=== PATIENT | male | born 1940 | race Caucasian/White ===

== ENCOUNTER 2021-01-17 15:35 | Inpatient (IN) | payer MEDICARE, SELFPAY ==
[2021-01-17] VITALS (10 sets, daily range): BP systolic 108–185; BP diastolic 69–90; PULSE 66–74; RESP 16–24; TEMP 35.9–36.6; O2SAT 98–100; BMI 30.8
--- NOTE | ~2021-01-17 | XR_ITS ---
EXAMINATION: XR abdomen obstructive series EXAM DATE: 01/26/2021 11:05 INDICATION: Nausea and vomiting. TECHNIQUE: Frontal projection(s) of the abdomen for interpretation. Comparison is made to prior exami nation from 07/09/2017. FINDINGS: There is a left-sided double-J ureteral stent, with a 1.5 cm stone next to it. Stent appea rs to be in expected position. There are a couple of loops of moderately distended air-filled small bowel in the midabdomen, differe ntial diagnosis including ileus and obstruction. No evidence of free intraperitoneal gas. Small bilateral pleural effusions. There is bibasilar airspace disease, which may have progressed com pared to chest x-ray 01/22/2021. IMPRESSION: 1. Couple loops of moderately distended air-filled small bowel, ileus or obstruction. Consider CT ab domen pelvis. 2. Possible progression in bibasilar airspace disease, atelectasis and/or pneumonia. 3. Left nephrolithiasis. Stent in position. 4. Small pleural effusions. Reviewed, dictated and finalized at location B. STMENT SPECIALIST IMPRESSION: 1. Couple loops of moderately distended air-filled small bowel, ileus or obstr uction. Consider CT abdomen pelvis. 2. Possible progression in bibasilar airspace disease, atelectasis and/or pneu monia. 3. Left nephrolithiasis. Stent in position. 4. Small pleural effusions.
--- NOTE | ~2021-01-17 | CT_ITS ---
EXAMINATION:CT diagnostic chest wo con DATE: 01/23/2021 14:30 INDICATION: Lung nodule. TECHNIQUE: Computed tomography (CT) of the chest was performed without intravenous contrast. Automate d exposure control and iterative reconstruction technique were employed. The dose-length product (DLP ) was 327.06 mGy-cm. COMPARISON: Chest single view 01/22/2021, CT abdomen and pelvis 07/08/2017 FINDINGS: There are small bilateral loculated pleural effusions. There is smooth septal thickening in the inferior lungs. There are scattered mild groundglass opacities in the lungs, worst in right uppe r lobe. There are two 3 mm nodules in right middle lobe, likely benign. Cardiomegaly is noted. There are coronary artery calcifications. There are changes of coronary artery bypass grafting. There are c hanges of aortic valve replacement. Bilateral gynecomastia is noted. There is mild chronic anterior w edging of multiple vertebral bodies. There is moderate thoracic spondylosis. There are bridging endpl ate osteophytes at multiple levels in the spine, consistent with diffuse idiopathic skeletal hyperost osis (DISH). IMPRESSION: 1. Small bilateral loculated pleural effusions. The chest radiograph abnormality correlates with flui d in the left major fissure. 2. Diffuse lung disease, likely mild pulmonary edema. Reviewed, dictated and finalized at location A. RN IMPRESSION: 1. Small bilateral loculated pleural effusions. The chest radiograph abnormalit y correlates with fluid in the left major fissure. 2. Diffuse lung disease, likely mild pulmonary edema.
--- NOTE | ~2021-01-17 | XR_ITS ---
EXAMINATION: XR chest 2V EXAM DATE: 01/17/2021 16:38 INDICATION: All over chest pain started this morning. History of bypass surgery. TECHNIQUE: Frontal and lateral projections of the chest obtained and reviewed. Comparison is made to prior examination from 09/08/2010. FINDINGS: Sternotomy wires are present without findings to suggest sternal dehiscence. Cardiac valve replacement. There is cardiomegaly and pulmonary vascular congestion. Possible mild pulmonary edema. No confluent consolidation or pneumothorax. Small pleural effusions. Mild to moderate thoracic spond ylosis. IMPRESSION: Congestive changes, possible mild CHF. Small pleural effusions. Reviewed, dictated and finalized at location A. ANALYST
--- NOTE | ~2021-01-17 | XR_ITS ---
EXAMINATION: XR abdomen obstructive series DATE: 01/27/2021 05:47 INDICATION: Small bowel obstruction TECHNIQUE: Frontal supine and upright views of the abdomen were obtained. COMPARISON: 01/26/2021 FINDINGS: Persistent mildly dilated loops of small bowel consistent with small bowel obstruction. No free intra peritoneal gas. Large left renal stone and loop of a left internal ureteral stent project over the le ft renal pelvis. The distal loop of the stent is formed over the expected location of the bladder. Ph leboliths and a couple surgical clips project over the pelvis. Mild streaky atelectasis at the left l adam base. Cardiomegaly. Median sternotomy wires, ostial markers and mediastinal surgical clips consis tent with prior coronary artery bypass grafting. Aortic valve replacement. Severe lower lumbar spondy losis. IMPRESSION: 1. Persistent mildly dilated loops of gas-filled small bowel consistent with small bowel obstruction . 2. Left nephrolithiasis with left internal ureteral stent in expected position. Reviewed, dictated and finalized at location A. ANCE CONSULTANT IMPRESSION: 1. Persistent mildly dilated loops of gas-filled small bowel consistent with s mall bowel obstruction. 2. Left nephrolithiasis with left internal ureteral stent in expected position.
--- NOTE | ~2021-01-17 | XR_ITS ---
EXAMINATION: XR abdomen obstructive series EXAM DATE: 02/04/2021 08:22 INDICATION: Small bowel obstruction follow-up. TECHNIQUE: Frontal upright projection of the upper abdomen, frontal projection of the lower abdomen f or interpretation. Comparison is made to prior examination from 02/03/2021, 02/01. FINDINGS: There is a loop of moderately distended air-filled small bowel identified. There is a left double-J ureteral stent in position and approximately 1 cm left nephrolithiasis. Some pelvic surgica l clips. Paucity of colonic stool and gas. There are bony degenerative changes. No evidence of free i ntraperitoneal gas. There are sternotomy wires. There is basilar atelectasis. IMPRESSION: Several loops distended air-filled small bowel without evidence of perforation. Reviewed, dictated and finalized at location A. SOMNOGRAPHIC TECHNOLOGIST
--- NOTE | ~2021-01-17 | XR_ITS ---
EXAMINATION: XR abdomen/kub 1V EXAM DATE: 01/31/2021 12:33 INDICATION: Small bowel obstruction. TECHNIQUE: Frontal projection(s) of the abdomen for interpretation. Comparison is made to prior exami nation from 01/27/2021. FINDINGS: There is a left-sided double-J ureteral stent in position. There are several loops of mode rately distended air-filled small bowel identified in the abdomen, less distended than on previous ex amination. Paucity of colonic stool and gas. Retrocardiac linear atelectasis. Mild to moderate bony d egenerative changes. IMPRESSION: 1. Several loops of moderately distended air-filled small bowel with mild improvement. 2. Left ureteral stent in position. Reviewed, dictated and finalized at location A. TECHNOLOGY ENGINEERING TECHNICIAN IMPRESSION: 1. Several loops of moderately distended air-filled small bowel with mild impr ovement. 2. Left ureteral stent in position.
--- NOTE | ~2021-01-17 | US_ITS ---
EXAMINATION: US renal BI DATE: 01/18/2021 10:53 INDICATION: Acute renal failure TECHNIQUE: Multiple grayscale and Doppler ultrasound images of the kidneys were obtained. COMPARISON: None. FINDINGS: The right kidney measures 9.5 x 5.1 x 4.9 cm. The left kidney measures 12.8 x 6.4 x 7.0 cm. The kidneys demonstrate normal parenchymal echogenicity. There is moderate hydronephrosis of the lef t kidney of unclear etiology. The bladder is normal. IMPRESSION: 1. Moderate left hydronephrosis of unclear etiology. Reviewed, dictated and finalized at location A. NICIAN PLANT AND MAINTENANCE
--- NOTE | ~2021-01-17 | XR_ITS ---
EXAMINATION: XR abdomen obstructive series EXAM DATE: 02/01/2021 14:10 INDICATION: Small bowel obstruction. TECHNIQUE: Frontal upright projection of the upper abdomen, frontal projection of the lower abdomen f or interpretation. Comparison is made to prior examination from 01/31/2021. FINDINGS: No evidence of free intraperitoneal gas. Again there are several loops of moderately diste nded air-filled small bowel with paucity of colonic stool. There is a left-sided double-J ureteral st ent in position. There is large left nephrolithiasis. Sternotomy wires. IMPRESSION: 1. Moderately distended air-filled small bowel unchanged. 2. Left ureteral stent in position. 3. Left nephrolithiasis. Reviewed, dictated and finalized at location A. APPEALS
--- NOTE | ~2021-01-17 | XR_ITS ---
EXAMINATION: XR chest 1V portable INDICATION: Shortness of breath TECHNIQUE: Portable AP chest at 0823 hours COMPARISON: 01/19/2021 FINDINGS: A mild diffuse interstitial pattern persists without significant change. Cardiomegaly is no juan pablo. There are small pleural effusions. No pneumothorax is identified. Changes of cardiac surgery are noted. There is a possible nodule of the left upper lung zone. IMPRESSION: 1. Cardiomegaly with mild pulmonary edema. 2. Bibasilar airspace opacities, consistent with atelectasis versus pneumonia. 3. Possible left lung nodule. Further evaluation with CT of the chest is recommended. Reviewed, dictated and finalized at location A. GRAIN FARMER IMPRESSION: 1. Cardiomegaly with mild pulmonary edema. 2. Bibasilar airspace opacities, consistent with atelectasis versus pneumonia. 3. Possible left lung nodule. Further evaluation with CT of the chest is recomm ended.
--- NOTE | ~2021-01-17 | XR_ITS ---
EXAMINATION: XR abdomen NG/feed tube insert DATE: 01/26/2021 14:14 INDICATION: Nasogastric tube placement TECHNIQUE: A supine view of the abdomen and lower chest was obtained for evaluation of feeding tube placement. COMPARISON: CT dated 01/26/2021 FINDINGS: Nasogastric tube with distal tip in proximal side port in the body of the stomach. Proximal loop of a left internal ureteral stent projects over the left upper quadrant over the expected location of the left renal pelvis. Linear discoid atelectasis/scarring in the left lower lung zone. The subtle patch y groundglass opacities at the bilateral lung bases seen on CT and suspicious for pneumonia indiscern ible on the current radiographs. Cardiomegaly. Median sternotomy wires, ostial markers and mediastina l surgical clips consistent with prior coronary artery bypass grafting. Aortic valve repair. IMPRESSION: 1. Nasogastric tube in the stomach. 2. Cardiomegaly. Reviewed, dictated and finalized at location A. AN/WOMAN
--- NOTE | ~2021-01-17 | CT_ITS ---
EXAMINATION: CT abdomen pelvis wo con DATE: 01/26/2021 12:03 INDICATION: Abdominal pain, nausea and vomiting with abnormal abdominal x-ray. TECHNIQUE: Computed tomography (CT) of the abdomen and pelvis was performed without intravenous contr ast. Automated exposure control and iterative reconstruction technique were employed. The dose-length product was 855.04 mGy-cm. COMPARISON: 07/18/2017 FINDINGS: Tiny bilateral pleural effusions. There are some pleural thickening and scattered linear discoid atel ectasis/scarring at the bilateral lung bases. There are few scattered small regions of groundglass op acity in the lingula, right middle and bilateral lower lobes which could represent aspiration, pneumo mingo or pulmonary edema. Borderline heart size. Atherosclerotic coronary artery calcifications and bryan nge of prior median sternotomy and coronary artery bypass grafting. Small sliding-type hiatal hernia. Liver, gallbladder, spleen, pancreas and bilateral adrenal glands are normal. Moderate right renal at rophy. 12 mm nonobstructing stone in an inferior calyx of the left kidney. There is a left internal u reteral stent with loops formed in the left renal pelvis and in the bladder. No hydronephrosis. There is a small amount of gas in the nondependent aspect of the otherwise normal-appearing bladder.. Postoperative change of prior distal colectomy with Valente's pouch and left supraumbilical and colos nirmal. Again seen is a moderate-sized parastomal hernia which contains a couple loops of small bowel. The hernia orifice measures 5.5 cm in diameter. There is a secondary small bowel obstruction with mil d dilation of the small bowel proximal to a transition point where the herniated bowel exits the xin ia sac with decompression of the more distal small bowel. The dilated bowel measures up to 3.3 cm in maximal diameter. There are few scattered diverticula along the remaining colon without adjacent infl ammatory change to suggest diverticulitis. The appendix is not visualized. No pericecal inflammatory change to suggest acute appendicitis. There is calcified atherosclerosis of the aorta and many of the other arteries. No free intraperitone al gas or fluid. No pathologically enlarged abdominal or pelvic lymphadenopathy. Severe lower lumbar spondylosis. IMPRESSION: 1. Again seen is a likely early or partial small bowel obstruction secondary to parastomal hernia wit h couple loops of small bowel with transition point occurring as one of the loops exits the hernia. 2. 12 mm nonobstructing left renal stone with left internal ureteral stent in expected position. 3. A few small groundglass opacities in the bilateral lower lobes which could represent atelectasis, pneumonia or pulmonary edema. 4. Small sliding-type hiatal hernia. 5. Small amount of gas in the otherwise normal bladder. Correlate clinically for recent instrumentati on or Romero catheterization and with urinalysis. 6. 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 Reviewed, dictated and finalized at location A. R DIGGER OPERATOR IMPRESSION: 1. Again seen is a likely early or partial small bowel obstruction secondary to parastomal hernia with couple loops of small bowel with transition point occur ring as one of the loops exits the hernia. 2. 12 mm nonobstructing left renal stone with left internal ureteral stent in e xpected position. 3. A few small groundglass opacities in the bilateral lower lobes which could r epresent atelectasis, pneumonia or pulmonary edema. 4. Small sliding-type hiatal hernia. 5. Small amount of gas in the otherwise normal bladder. Correlate clinically fo r recent instrumentation or Romero catheterization and with urinalysis. 6. 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
--- NOTE | ~2021-01-17 | XR_ITS ---
EXAMINATION: XR retrograde pyelo w/stent LT EXAM DATE: 01/19/2021 17:21 INDICATION: Cystoscopy, left stent placement. Clot evacuation. TECHNIQUE: Fluoroscopy used during XR retrograde pyelo w/stent LT performed by Dr. Leighton Antonio MD. The DAP for this procedure was 868 radcm2 Cine run(s) available for review. FINDINGS: Images demonstrate cannulation of the left ureter which is tortuous, with mild to moderate left-sided hydroureteronephrosis. A double-J ureteral stent was placed. Correlate with procedure no te. IMPRESSION: Fluoroscopy used during XR retrograde pyelo w/stent LT. Reviewed, dictated and finalized at location A. OR QUALITY ENGINEER
--- NOTE | ~2021-01-17 | XR_ITS ---
EXAMINATION: XR chest 1V portable INDICATION: Congestive changes TECHNIQUE: Portable AP chest at 1141 hours COMPARISON: 01/17/2021 FINDINGS: There is stable cardiomegaly. A mild diffuse interstitial pattern persists without signific ant change. More focal airspace opacities are seen in the lung bases. Small pleural effusions are sta ble. There is no pneumothorax. Changes of prior cardiac surgery are noted. IMPRESSION: 1. Cardiomegaly with stable mild pulmonary edema. 2. Bibasilar airspace opacity, consistent with atelectasis versus pneumonia. 3. Small pleural effusions. Reviewed, dictated and finalized at location A. OLOGY SECRETARY/TRANSCRIPTIONIST
--- NOTE | ~2021-01-17 | XR_ITS ---
EXAMINATION: XR abdomen obstructive series DATE: 02/03/2021 09:20 INDICATION: Small bowel obstruction. TECHNIQUE: Upright and supine views of the abdomen were obtained. COMPARISON: Abdomen radiographs 02/01/2021 FINDINGS: There are mildly dilated loops of small bowel. The colon is decompressed. There is no free peritoneal gas. There is a left internal ureteral stent in expected position. There is a 12 mm stone in left kidney. There are phleboliths in the pelvis. IMPRESSION: 1. Mildly dilated small bowel with interval improvement, consistent with small bowel obstruction. 2. Left kidney stone. Left internal ureteral stent in expected position. Reviewed, dictated and finalized at location A. ACT PULLER
--- NOTE | 2021-01-17 15:36 | ECG_ITS ---
Measurements Intervals [place] Rate: 60 P: 17 AK: 177 QRS: -25 QRSD: 106 T: 62 QT: 407 QTc: 409 Interpretive Statements SINUS RHYTHM DELAYED PRECORDIAL R/S TRANSITION BORDERLINE ST-T WAVE ABNORMALITY- ANTEROLAT/HIGH LAT LEADS BASELINE ARTIFACT- II, III, AVR, AVF, V1 BORDERLINE ECG Electronically Signed On 01-18-2021 9:26:43 BIOMASS TECHNICIAN by Herbert Junior D.O.
[2021-01-17 15:53] LABS: Basophils Percent Auto 0.3 % (0.2-1.2); Eosinophils Absolute Auto 0.2 K/mm3 (0-0.3); Hemoglobin 9.3 g/dL (14.0-18.0); Immature Granulocyte Absolute 0.02 K/mm3 (0.00-0.031); Immature Granulocyte Percent A 0.3 % (0-0.5); Lymphocytes Absolute Auto 1.26 K/mm3 (0.9-3.2); Lymphocytes Percent Auto 21.2 % (18.3-44.2); Mean Corpuscular HGB Conc 33.2 g/dl (32-36); Mean Corpuscular Hemoglobin 32.5 pg (26-34); Mean Corpuscular Volume 97.9 fl (80-100); Mean Platelet Volume 9.4 fl (7.4-10.4); Monocytes Percent Auto 17.2 % (2.6-8.5); Neutrophils Absolute Auto 3.4 K/mm3 (1.3-6.7); Platelet Count Result 197 k/mm3 (150-375); Red Blood Count 2.86 M/mm3 (4.6-6.20); Red Cell Distribution Width 13.8 % (11.5-14.5); White Blood Count 5.9 K/mm3 (4.5-10.0)
[2021-01-17 16:02] LABS: Anion Gap 12 mmol/L (8-16); Blood Urea Nitrogen 65 mg/dL (9-20); Calcium 8.6 mg/dL (8.4-10.2); Carbon Dioxide 20 mmol/L (22-30); Chloride 103 mmol/L (98-107); Estimated Glomerular Filt Rate 6; Glucose 254 mg/dL (75-110); Potassium 4.8 mmol/L (3.4-5.0); Sodium 135 mmol/L (137-145)
[2021-01-17 16:03] LABS: INR 1.1; Prothrombin Time 14.7 Seconds (11.1-14.7)
[2021-01-17 16:04] LABS: Partial Thromboplastin Time 33.2 SECONDS (22.3-36.8)
[2021-01-17 16:14] LABS: Troponin I 0.034 ng/mL (0.000-0.034)
--- NOTE | 2021-01-17 18:44 | ED.CHESTPAIN ---
HPI - Chest Pain General Chief Complaint: Chest Pain Stated Complaint: CP Time Seen by Provider: 01/17/21 18:40 Source: patient Mode of arrival: ambulatory Limitations: no limitations History of Present Illness HPI narrative: 80-year-old male Follows with Dr. Cartagena and at the [facility] Most recently was seen a week or 2 ago when he stated everything shut down meaning that he was having trouble peeing and was very constipated At time he had some labs done at the [facility] which were forwarded to Dr. Cartagena as far as the patient knows were fairly unremarkable Day about 7 AM the patient was cleaning snow off of his cars and experienced shortness of breath and chest tightness That went away and he went out to lunch After lunch he walked out to get his mail and had a similar but worse experience as well including the snow this morning and was not sure that he is any able to walk back to the house from the mailbox No nausea no diaphoresis Unfortunately is not sure of his current meds MD complaint: chest heaviness Related Data Home Medications Medication Instructions Recorded Confirmed Unable to Obtain Home Medications 01/17/21 01/17/21 Allergies Allergy/AdvReac Type Severity Reaction Status Date / Time codeine Allergy Unknown Verified 07/15/17 11:13 doxazosin Allergy Unknown Verified 07/08/17 19:32 egg Allergy Unknown Verified 07/15/17 11:13 erythromycin base Allergy Unknown Verified 07/15/17 11:13 Influenza Virus Vaccines Allergy Unknown Verified 07/15/17 11:14 lisinopril Allergy Unknown Verified 07/19/17 09:16 metformin Allergy Unknown Verified 07/19/17 09:16 Penicillins Allergy Unknown Verified 07/15/17 11:14 Review of Systems Review of Systems: All systems reviewed & are unremarkable except as noted in HPI and below Constitutional: Constitutional: Reports fatigue and Reports weakness Eyes: Eyes: Reports no additional eye complaints and Denies change in vision ENT: Denies headache(s), Denies epistaxis, Denies nasal congestion and Denies sore throat Cardiovascular: Cardiovascular: Reports chest pain, Denies leg edema, Denies radiating jaw, neck or arm pain, Denies palpitations and Denies dyspnea Respiratory: Respiratory: Denies cough, Reports dyspnea and Denies wheezing Gastrointestinal: Gastrointestinal: Reports abdominal pain, Denies diarrhea, Denies nausea and Denies vomiting Genitourinary: Genitourinary: Denies hematuria, Reports oliguria, Denies dysuria and Denies urinary frequency Musculoskeletal: Musculoskeletal: Denies deformity, Denies arthralgias, Denies joint swelling, Denies muscle weakness and Denies numbness Integumentary/Breasts: Skin/Breast: Denies rash and Denies wounds Neurologic: Denies headache(s), Denies focal weakness, Denies numbness and Reports weakness Psychiatric: Psychiatric: Reports no additional psychiatric complaints Endocrine: Endocrine: Denies fatigue and Denies palpitations Hematologic/Lymphatic: Hematologic/Lymphatic: Denies easy bleeding and Denies easy bruising Allergic/Immunologic: Allergic/Immunologic: Denies wheezing PMFSH Social History Social History Smoking status: Former smoker Smoking end date: 12/02/96 Alcohol intake: never Gender identity (if verbalized by the patient): Male Exam Const: General: no acute distress, well developed, alert and awake Nutritional Appearance: well nourished Orientation/consciousness: patient oriented x3 (alert) Limitations: no limitations HENMT: Head: normocephalic and atraumatic Ears: external ears normal General nose exam: No nasal discharge present and no epistaxis Face and sinus: face symmetric Eyes: Conjunctivae: conjunctivae normal Sclera: sclerae normal EOM: EOMs intact bilaterally Neck: Neck: normal visual inspection, supple and no JVD Chest: Chest palpation & inspection: deferred Resp: Effort & Inspection: normal respiratory effort Auscultation: clear to auscultation bilaterally, no ra
--- NOTE | 2021-01-17 19:10 | PC.NURSE ---
Report to MAVIS Garcia at this time, he has assumed pt care.
--- NOTE | 2021-01-17 19:12 | PC.NURSE ---
Report to MAVIS Garcia at this time, he has assumed pt care.
[2021-01-17 19:17] LABS: Troponin I 0.209 ng/mL (0.000-0.034)
[2021-01-17] MEDS: ASPIRIN 81 MG CHEWABLE TABLET 324 MG PO (19:44)
[2021-01-17] MEDS: METOPROLOL TARTRATE INJ 5 MG/5 ML VIAL IV PUSH (19:47)
[2021-01-17 20:02] LABS: Creatinine Urine 84.2 mg/dL
[2021-01-17 20:03] LABS: Sodium Urine Random 77 meq/L
[2021-01-17] MEDS: HEPARIN SOD/D5W 100 UNITS/ML 25,000 UNITS/250 ML BAG 10 UNITS IV CONT (20:03)
[2021-01-17 20:08] LABS: Anion Gap 11 mmol/L (8-16); Blood Urea Nitrogen 68 mg/dL (9-20); Calcium 8.7 mg/dL (8.4-10.2); Carbon Dioxide 22 mmol/L (22-30); Chloride 103 mmol/L (98-107); Estimated CRCL calculation 7 ml/min; Estimated Glomerular Filt Rate 6; Glucose 123 mg/dL (75-110); Potassium 4.9 mmol/L (3.4-5.0); Sodium 136 mmol/L (137-145)
--- NOTE | 2021-01-17 20:56 | PM.IMHP ---
H&P: HPI History of Present Illness Date/Time: 01/17/21 20:56 Chief Complaint: chest pain Narrative: This is an 80 year old Diabetic male with known CAD s/p CABG, s/p aortic valve replacement w/ a bovine valve, s/p bowel resection from colon cancer among other comorbidities who presented to the hospital [facility] after having two episodes of chest pain today at home. This morning the patient went outside to clean off the snow off his cars when he started to develop severe midsternal chest pain, diaphoresis, and nausea. His chest discomfort lasted over an hour and he did go and see his PCP, Dr. Cartagena who evaluated him and then sent him home. In the afternoon he went out to get the mail when he started to again experience severe midsternal chest pain, nausea, shortness of breath, and diaphoresis. His chest pain was pressure like and radiated down both arms. The patient continues to have mild chest pain in the ER tonight. His last stress test was over a year ago and he hasn't had a cardiac angiogram for over 10 years. Tonight he denies any fevers, chills, cough, abdominal pain, dysuria, hematuria, rectal bleeding or worsening LE swelling. He has been urinating without difficulty. The patient was evaluated in the ER tonight and found to have severely elevated Cr of 8.9 and an elevated troponin of 0.209. Cardiology has been consulted by ER provider and we have been asked to admit him to the hospital for further care. He has no other complaints at this time. Review of Systems Review of Systems: All systems reviewed & are unremarkable except as noted in HPI and below [facility] Past Medical History Medical History (Updated 01/17/21 @ 21:12 by Marty Yañez MD) CAD (coronary artery disease) Diabetes mellitus H/O: HTN (hypertension) History of colon cancer Hyperlipidemia Surgical History Surgical History (Updated 01/17/21 @ 21:06 by Marty Yañez MD) History of aortic valve replacement History of colon resection History of coronary artery bypass graft Family History Family History (Updated 01/17/21 @ 23:19 by Eleni Damon RN) Father Heart disease Mother Heart disease Asthma Sibling Heart disease Social History Social History Smoking packs per day: 2 Smoking cigarettes per day: 40.0 Years smoked: 47 Smoking pack-years: 94.00 Smoking status: Former smoker Tobacco type: cigarettes Second hand tobacco smoke exposure: Yes Smoking end date: 12/02/96 Alcohol intake: never Substance use: never Gender identity (if verbalized by the patient): Male 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 (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) Meds Home Medications and Allergies Home Medications Medication Instructions Recorded Confirmed Type aspirin [Adult Aspirin EC Low 325 mg PO DAILY 01/17/21 01/17/21 History Strength] atorvastatin 40 mg PO HS 01/17/21 01/17/21 History cholecalciferol (vitamin D3) 50 mcg PO DAILY 01/17/21 01/17/21 History furosemide 40 mg PO DAILY 01/17/21 01/17/21 History levothyroxine [Synthroid] 50 mcg PO DAILY 01/17/21 01/17/21 History losartan 25 mg PO DAILY 01/17/21 01/17/21 History metoprolol tartrate 25 mg PO BID 01/17/21 01/17/21 History omega 8-jbs-eoe-fish oil [Fish Oil] 1,200 cap PO DAILY 01/17/21 01/17/21 History potassium chloride 20 meq PO DAILY 01/17/21 01/17/21 History tamsulosin [Flomax] 0.4 mg PO DAILY 01/17/21 01/17/21 History vitamin B complex [Super B Complex] 1 cap PO DAILY 01/17/21 01/17/21 History Allergies Allergy/AdvReac Type Severity Reaction Status Date / Time codeine Allergy Unknown Verified 07/15/17 11:13 doxazosin Allergy Unknown Verified 07/08/17 19:32 egg Allergy Unknown Verified 07/15/17 11:13 erythromycin base Allergy Unknown Verified 07/15/17 11:13 Influenza Virus Vaccines Allergy Unknown Verified 07/15/17 11:14 lisinopril Allergy Unknown Verified 07/19/17 09:16 metformin Allergy Unknown Verified 07/19/17 09:1
--- NOTE | 2021-01-17 21:16 | ECG_ITS ---
Measurements Intervals [place] Rate: 82 P: 9 MO: 167 QRS: -46 QRSD: 133 T: 103 QT: 378 QTc: 444 Interpretive Statements SINUS RHYTHM LEFT BUNDLE BRANCH BLOCK ABNORMAL ECG Electronically Signed On 01-18-2021 9:35:26 SIDING COREBOARD INSPECTOR by Herbert Junior D.O.
[2021-01-17 21:54] LABS: Add Urine Microscopic? YES; Appearance Urine Clear (Clear); Bilirubin Urine Negative (Negative); Blood Urine Negative (Negative); Color Urine Yellow (Yellow); Glucose Urine UA 1+ mg/dL (Negative); Ketones Urine Negative (Negative); Leukocyte Esterase Ur Trace LEU/UL (Negative); Mucus Urine Rare /lpf; Nitrate Urine Negative (Negative); Protein Urine Negative (Negative); RBC Urine 0-2 /hpf (0-2); Specific Grav Ur 1.011 (1.001-1.035); Squamous Epithelial Cell Urine Rare /hpf (Few); Urobilinogen Urine Negative mg/dL (<2.0)
--- NOTE | 2021-01-17 22:11 | PC.NURSE ---
SBAR received from Jose in ED.
[2021-01-17 22:15] LABS: Troponin I 0.313 ng/mL (0.000-0.034)
--- NOTE | 2021-01-17 22:31 | ADMGEN ---
This patient, Mauricio Garces, was admitted to IMU Room 205-02 on 01/17/21 at 2225. Patient/family oriented to hospital policies and general routines including ID bracelet, bed and alarms, visiting hours, pain management, procedures, bathroom and other care routines, personal items, smoking policy, room service/diet, and visiting hours. Information on how to activate the Rapid Response Team has been discussed. Patient/Family are encouraged to report perceived risks to care and to ask questions if they do not understand what they are told or what they should do.
[2021-01-17] MEDS: FAMOTIDINE 20 MG/2 ML VIAL IV PUSH (23:46)
[2021-01-17 23:57] LABS: Glucose Point of Care 97 (65-105)
[2021-01-18] VITALS (14 sets, daily range): BP systolic 111–163; BP diastolic 41–59; PULSE 54–71; RESP 18–20; TEMP 35.9–36.5; O2SAT 95–100
--- NOTE | 2021-01-18 | ECHO_ITS ---
Patient Info Name: Mauricio Garces Age: 80 years : 1940 Gender: Male Ht: 70 in Wt: 212 lbs BSA: 2.20 m2 HR: 55 bpm BP: 163 / 46 mmHg Heart Rhythm: Bradycardia Technical Quality: Fair Exam Date: 01/18/2021 11:37 AM Exam Location: [facility] Patient Status: Inpatient Admit Date: 01/17/2021 Staff Ordering Physician: Yogesh Villegas MD Sports Journalist: Cody Romero RDCS Attending Provider: Wallace Mccoy MD Referring Physician: Bakari MENJIVAR; Exam Type: CA echo dop color flow w con Study Info Indications I21.4 - Non-ST elevation (NSTEMI) myocardial infarction Complete two-dimensional, color flow and Doppler transthoracic echocardiogram is performed with contrast to opacify the left ventricle and to improve the deliniation of the left ventricle endocardial borders. Contrast/Agitated Saline Contrast/Ag. Saline: Definity Amount: 3.00 ml Administered By: Nidhi Skaggs RN Existing IV Access: Yes History/Risk Factors NSTEMI; BioAVR and CAD w/ CABG x2, DM, HTN. Summary 1. Left ventricular chamber dimension is mildly enlarged. 2. Left ventricular systolic function is normal, estimated at 55-60%. 3. There is mildly increased left ventricular wall thickness. 4. The left ventricular diastolic function is grade I diastolic dysfunction. 5. The apical septum, and apical cap are hypokinetic. 6. Left atrial chamber dimension is mildly enlarged. 7. 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 8. There is mild to moderate mitral valve regurgitation. 9. There is mild tricuspid valve regurgitation. 10. Mild pulmonary hypertension, estimated pulmonary arterial systolic pressure is 36 mmHg. 11. There is mild pulmonic regurgitation. 12. The aortic root size at the sinus of Valsalva is mildly dilated. Left Ventricle Left ventricular chamber dimension is mildly enlarged. Left ventricular systolic function is normal, estimated at 55-60%. There is mildly increased left ventricular wall thickness. The left ventricular diastolic function is grade I diastolic dysfunction. The apical septum, and apical cap are hypokinetic. All other hayden appear normal. Right Ventricle Right ventricular chamber dimension is normal. Right ventricular systolic function is normal. Left Atria Left atrial chamber dimension is mildly enlarged. Right Atria Right atrial chamber dimension is normal. Atrial Septum Intact interatrial septum visualized by color flow imaging. 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 There is trace regurgitation of the bioprosthetic aortic valve. Pulmonic Valve The pulmonic valve is normal. There is no pulmonic valve stenosis. There is mild pulmonic regurgitation. Mitral Valve The mitral valve has thickened leaflets. There is no mitral valve stenosis. There is mild to moderate mitral valve regurgitation. Tricuspid Valve The tricuspid valve leaflets are normal. There is no significant tricuspid valve stenosis. There is mild tricuspid valve regurgitation. Mild pulmonary hypertension, estimated pulmonary arterial systolic pressure is 36 mmHg. Pericardium/Pleural The pericardium appears normal. There is no pericardial effusion. Inferior Vena Cava
[2021-01-18] MEDS: SODIUM CHLORIDE 0.9% IV 1,000 ML 80 ML IV CONT ×2 (02:11→13:55)
[2021-01-18 05:13] LABS: Basophils Percent Auto 0.3 % (0.2-1.2); Eosinophils Absolute Auto 0.2 K/mm3 (0-0.3); Eosinophils Percent Auto 3.7 % (0-4.4); Hematocrit 24.2 % (42.0-52.0); Immature Granulocyte Absolute 0.01 K/mm3 (0.00-0.031); Immature Granulocyte Percent A 0.2 % (0-0.5); Lymphocytes Absolute Auto 1.93 K/mm3 (0.9-3.2); Lymphocytes Percent Auto 31.2 % (18.3-44.2); Mean Corpuscular HGB Conc 33.1 g/dl (32-36); Mean Corpuscular Hemoglobin 31.9 pg (26-34); Mean Corpuscular Volume 96.4 fl (80-100); Mean Platelet Volume 9.6 fl (7.4-10.4); Monocytes Absolute Auto 1.1 K/mm3 (0.1-0.6); Monocytes Percent Auto 18.1 % (2.6-8.5); Neutrophils Absolute Auto 2.9 K/mm3 (1.3-6.7); Neutrophils Percent Auto 46.5 % (45.5-73.1); Platelet Count Result 206 k/mm3 (150-375); Red Blood Count 2.51 M/mm3 (4.6-6.20); Red Cell Distribution Width 13.6 % (11.5-14.5); White Blood Count 6.2 K/mm3 (4.5-10.0)
[2021-01-18 05:27] LABS: Anion Gap 10 mmol/L (8-16); Blood Urea Nitrogen 66 mg/dL (9-20); Calcium 8.3 mg/dL (8.4-10.2); Carbon Dioxide 22 mmol/L (22-30); Chloride 104 mmol/L (98-107); Cholesterol 108 mg/dL (0-200); Estimated CRCL calculation 7 ml/min; Estimated Glomerular Filt Rate 6; Glucose 64 mg/dL (75-110); HDL Direct 28 mg/dL; Potassium 4.3 mmol/L (3.4-5.0); Sodium 136 mmol/L (137-145); Triglycerides 84 mg/dL (<150)
[2021-01-18 05:38] LABS: LDL Cholesterol Direct 52 mg/dL
[2021-01-18 06:23] LABS: Glucose Point of Care 87 (65-105)
[2021-01-18] MEDS: TAMSULOSIN HCL 0.4 MG CAPSULE PO (09:10)
[2021-01-18] MEDS: VITAMIN B COMPLEX CAPSULE 1 CAP PO (09:10)
[2021-01-18] MEDS: CHOLECALCIFEROL 1,000 UNITS TABLET 2000 UNITS PO (09:10)
[2021-01-18] MEDS: ASPIRIN 325 MG ENTERIC TABLET PO (09:10)
[2021-01-18] MEDS: OMEGA 3 POLYUNSAT FATTY ACIDS 1 GM CAP PO (09:10)
[2021-01-18] MEDS: LEVOTHYROXINE SODIUM 50 MCG TABLET PO (09:10)
[2021-01-18] MEDS: METOPROLOL TARTRATE 25 MG TABLET PO ×2 (09:10→19:33)
[2021-01-18] MEDS: FAMOTIDINE 20 MG/2 ML VIAL IV PUSH ×2 (09:11→21:21)
--- NOTE | 2021-01-18 09:44 | PM.CNCAR ---
Assessment and Plan Assessment and plan (1) Non-ST elevation [place] (NSTEMI): Code(s): I21.4 - Non-ST elevation (NSTEMI) myocardial infarction Status: Acute Assessment and Plan: Patient has a clinical scenario consistent with acute coronary syndrome. He does have a history of coronary disease and coronary bypass grafting on 2 separate occasions. Details are as above. He still has some residual pain but at this point given his severe renal insufficiency, he will be treated medically for now. If/when his renal function improves, consider cardiac catheterization. Could also risk stratify with a Lexiscan when more medically stable. Will request records from the [place] including most recent echocardiogram as well as stress test that he states was performed last year. Will repeat her troponin now. Initiate nitroglycerin 1 in Q 6 hours. Atorvastatin 40 mg p.o. daily. Continue heparin drip per protocol and this be continued for least another 24 hours. 2D echocardiogram Doppler will be ordered and reviewed. Hold losartan, furosemide and potassium because of his acute renal failure. (2) Acute kidney failure: Qualifiers: Acute renal failure type: unspecified Qualified Code(s): N17.9 - Acute kidney failure, unspecified Code(s): N17.9 - Acute kidney failure, unspecified Status: Acute Assessment and Plan: As above. Continue to hold losartan furosemide and potassium. Nephrology following (3) CAD (coronary artery disease): Code(s): I25.10 - Atherosclerotic heart disease of [place] coronary artery without angina pectoris Status: Acute Assessment and Plan: As detailed above (4) Hyperlipidemia: Qualifiers: Hyperlipidemia type: unspecified Qualified Code(s): E78.5 - Hyperlipidemia, unspecified Code(s): E78.5 - Hyperlipidemia, unspecified Status: Chronic Assessment and Plan: Continue statin (5) Hypertension associated with diabetes: Code(s): E11.59 - Type 2 diabetes mellitus with other circulatory complications; I15.2 - Hypertension secondary to endocrine disorders Status: Acute Assessment and Plan: Above goal (6) History of aortic valve replacement: Code(s): Z95.2 - Presence of prosthetic heart valve Status: Acute Assessment and Plan: Sounds to be functioning normally but will order an echocardiogram to ensure History of Present Illness History of Present Illness Consult date/time: 01/18/21 09:44 Requesting physician: Radames,Quan A., MD Consult reason: chest pain Reason For Visit: NSTEMI, acute renal failure Narrative: Date of service 01/18/2021: History: Patient is an 80-year-old male who has a history of coronary disease times 2 as well as aortic valve replacement. He formally saw Dr. Wilson but has not seen him in several years. Last cardiac care was performed [place] the [place]. Patient had a previous bypass surgery in the he thinks. He had a catheterization in May of 2010 which showed severe aortic stenosis with occlusion of the LAD and RCA with a patent FIORE to the LAD and vein graft to the RCA. In July of 2010 he had a redo bypass with the SVG to OM and a bioprosthetic pericardial tissue valve in the aortic position. He was outside yesterday sweeping off snow from his pars whenever he started developing chest discomfort. He was able to complete this task and went back inside. He then went and saw Dr. Cartagena. At that point he was feeling okay and he decided to proceed and run some errands. After getting back home though and later on the afternoon yesterday he walked out to the mailbox and stated that he felt like he could not even make it back inside. He did manage to make it inside though but was having significant chest pains, dry heaves and shortness of breath. Symptoms radiated down both arms and to the right shoulder. He does still have a mild amount discomfort. Overall symptoms are much bett
[2021-01-18 10:22] LABS: Partial Thromboplastin Time 63.1 SECONDS (22.3-36.8)
[2021-01-18] MEDS: HEPARIN SODIUM 5,000 UNITS/ML VIAL 3500 UNITS IV PUSH (11:07)
[2021-01-18 11:08] LABS: Troponin I 0.274 ng/mL (0.000-0.034)
[2021-01-18 11:58] LABS: Glucose Point of Care 83 (65-105)
[2021-01-18] MEDS: PERFLUTREN LIPID MICROSPHERES 1.5 ML VIAL DILUTED TO 10 ML TOTAL VOLUME IV PUSH (12:00)
[2021-01-18] MEDS: NITROGLYCERIN OINTMENT 1 INCH DOSE TRANSDERM ×3 (12:33→23:33)
--- NOTE | 2021-01-18 14:42 | PM.CNNEP ---
Assessment and Plan Assessment and plan (1) Acute kidney failure: Qualifiers: Acute renal failure type: unspecified Qualified Code(s): N17.9 - Acute kidney failure, unspecified Code(s): N17.9 - Acute kidney failure, unspecified Status: Acute Assessment and Plan: Mauricio has acute kidney injury. He had a normal creatinine in 2017. He says that he has not been told about abnormal kidneys before this. He has had issues with his urine output since . Although he has not really been evaluated for this so we have no idea what his kidney function has been over the last month and a half. Currently is creatinine is 9 which is quite high. Judging from all of his symptoms and sound like he has some prostatic symptoms and so could have obstruction. He did have a renal ultrasound which shows a large left kidney and a small right kidney. The left kidney has moderate hydronephrosis. Since this is the bigger kidney and therefore most of the kidney function, the hydronephrosis may be what is leading to his high creatinine. So I asked the nurses to place a Romero catheter. If they have any trouble then they will call Urology to place 1. his obstruction could simply be BPH but also could be prostate cancer. He tsai had colon cancer already. Other causes of acute kidney injury include interstitial nephritis because he is on a few new medications but he does not really know what they are. Glomerulonephritis is always a possibility as well , however he does not have blood or protein in the urine. Infiltrative diseases such as multiple myeloma or amyloidosis are possible as well. And vascular diseases are possible as well. at this point will get urine electrolytes and eosinophils. We will place a Romero catheter in see if that does anything. (2) CAD (coronary artery disease): Code(s): I25.10 - Atherosclerotic heart disease of [place] coronary artery without angina pectoris Status: Acute Assessment and Plan: The patient has coronary disease. He undoubtedly needs a cardiac catheterization. However his creatinine is 9 right now. If he continues to have chest pain and shortness of breath even on maximal medical therapy as he is on, then he will probably just have to have the cardiac catheterization but if things settle down and we can wait a few days safely then that would lessen the likelihood of nephrotoxicity. I talked with the patient about the above. We can always do dialysis if the kidneys fail, but we do not want him to have another heart attack. (3) H/O: HTN (hypertension): Code(s): Z86.79 - Personal history of other diseases of the circulatory system Status: Chronic Assessment and Plan: His blood pressure is under good control (4) Normocytic anemia: Code(s): D64.9 - Anemia, unspecified Status: Acute Assessment and Plan: his hemoglobin is low. Will check iron levels. He probably will need EPO. (5) Diabetes mellitus: Qualifiers: Diabetes mellitus type: type 2 Diabetes mellitus it analyst insulin use: with mcc use Diabetes mellitus complication status: without complication Qualified Code(s): E11.9 - Type 2 diabetes mellitus without complications; Z79.4 - appraiser timber (current) use of insulin Code(s): E11.9 - Type 2 diabetes mellitus without complications Status: Chronic Assessment and Plan: He is on Accu-Cheks and sliding-scale insulin (6) History of aortic valve replacement: Code(s): Z95.2 - Presence of prosthetic heart valve Status: Acute History of Present Illness Reason for Consult Consult date: 01/18/21 Chief Complaint Chief complaint: NSTEMI, acute renal failure History of Present Illness Narrative: Mauricio is a very pleasant 80-year-old gentleman who has multiple medical problems including colon cancer status post colectomy and colostomy placement, coronary disease status post bypass,
[2021-01-18 17:05] LABS: Glucose Point of Care 176 (65-105)
--- NOTE | 2021-01-18 17:26 | PM.IMPN ---
Progress Note: A&P Assessment and Plan (1) Non-ST elevation [place] (NSTEMI): Code(s): I21.4 - Non-ST elevation (NSTEMI) myocardial infarction Status: Acute Assessment and Plan: Patient presents with complaints of chest pain shortness of breath with exertion. Troponin peaked at 0.31. EKG showing delayed transition and borderline ST T wave changes in the anterior lateral and high lateral leads. Repeat EKG later on the same day showing new left bundle branch block. No plans for cardiac catheterization given his renal insufficiency. Echocardiogram showing EF of 55-60% with grade 1 diastolic dysfunction and hypokinetic apical septum and apical cap. Plan for medical management. Drip for now. Continue aspirin, Lipitor, Lopressor. Nitroglycerin ointment added as well. Appreciate Cardiology input. (2) CAD (coronary artery disease): Code(s): I25.10 - Atherosclerotic heart disease of [place] coronary artery without angina pectoris Status: Acute Assessment and Plan: As above. Plan for continued medical management. (3) Acute kidney failure: Qualifiers: Acute renal failure type: unspecified Qualified Code(s): N17.9 - Acute kidney failure, unspecified Code(s): N17.9 - Acute kidney failure, unspecified Status: Acute Assessment and Plan: Creatinine 9.2 on admission. Patient states that he does not have underlying kidney disease. Last lab work here in July 2017 showing creatinine 1.1. Suspect his renal failure is either subacute or chronic given that he has tolerated this change well. He was on Lasix on admission. IV fluids started on admission. Patient's creatinine slightly better today. Renal ultrasound showing normal parenchymal echogenicity and moderate left hydronephrosis. Bladder appears normal. UA is negative for protein and blood. Patient is on Flomax. Romero catheter placed. FENa 6.2% to suggest renal (infiltrative?) or possibly post-renal. Monitor urine output and renal function. Appreciate Nephrology input. Consider urology consult. (4) Elevated troponin: Code(s): R77.8 - Other specified abnormalities of plasma proteins Status: Acute Assessment and Plan: Likely secondary to unstable angina/NSTEMI. As above. (5) Normocytic anemia: Code(s): D64.9 - Anemia, unspecified Status: Acute Assessment and Plan: Hgb 9.3 on admission. Patient denies any dark black stools or active colon bleeding. With IV fluids, Hgb dropped to 8. Continue to monitor H&H and transfuse p.r.n. as the patient is being anticoagulated with IV heparin. Check iron studies, etc. (6) Hyperlipidemia: Qualifiers: Hyperlipidemia type: unspecified Qualified Code(s): E78.5 - Hyperlipidemia, unspecified Code(s): E78.5 - Hyperlipidemia, unspecified Status: Chronic Assessment and Plan: LDL 52, HDL 28. Continue Lipitor. Check LFTs. (7) H/O: HTN (hypertension): Code(s): Z86.79 - Personal history of other diseases of the circulatory system Status: Chronic Assessment and Plan: Patient's blood pressure was reviewed on 01/18 Blood pressure elevated at times but overall remains well controlled. Will continue current medications. (8) Diabetes mellitus: Qualifiers: Diabetes mellitus complication status: without complication Diabetes mellitus terminal manager insulin use: with longterm use Diabetes mellitus type: type 2 Qualified Code(s): E11.9 - Type 2 diabetes mellitus without complications; Z79.4 - terminal gauger (current) use of insulin Code(s): E11.9 - Type 2 diabetes mellitus without complications Status: Chronic Assessment and Plan: The patient's blood glucose was reviewed on 01/18 Glucose remains well controlled. Continue AccuCheks covering with sliding scale. Hypoglycemia protocol available as needed. Continue to monitor closely. (9) History of aortic
[2021-01-18 17:43] LABS: Partial Thromboplastin Time 140.4 SECONDS (22.3-36.8)
[2021-01-18] MEDS: HEPARIN SOD/D5W 100 UNITS/ML 25,000 UNITS/250 ML BAG 10 UNITS IV CONT (19:35)
[2021-01-18 20:28] LABS: Glucose Point of Care 235 (65-105)
[2021-01-18] MEDS: ATORVASTATIN 40 MG TABLET PO (21:21)
[2021-01-18] MEDS: INSULIN ASPART (*BKC) 100 UNITS/ML SUB-Q (21:22)
[2021-01-18] MEDS: ACETAMINOPHEN 325 MG TABLET 650 MG PO (23:33)
[2021-01-19] VITALS (30 sets, daily range): BP systolic 118–160; BP diastolic 48–78; PULSE 54–93; RESP 14–27; TEMP 36.2–37.1; O2SAT 92–100
[2021-01-19] MEDS: LEVALBUTEROL NEB 1.25 MG/3 ML 0.63 MG INHALATION ×4 (00:55→20:23)
[2021-01-19 02:23] LABS: Basophils Percent Auto 0.3 % (0.2-1.2); Eosinophils Absolute Auto 0.1 K/mm3 (0-0.3); Eosinophils Percent Auto 0.9 % (0-4.4); Hematocrit 25.8 % (42.0-52.0); Hemoglobin 8.6 g/dL (14.0-18.0); Immature Granulocyte Absolute 0.04 K/mm3 (0.00-0.031); Immature Granulocyte Percent A 0.5 % (0-0.5); Lymphocytes Absolute Auto 1.27 K/mm3 (0.9-3.2); Lymphocytes Percent Auto 14.4 % (18.3-44.2); Mean Corpuscular HGB Conc 33.3 g/dl (32-36); Mean Corpuscular Hemoglobin 32.3 pg (26-34); Mean Platelet Volume 9.3 fl (7.4-10.4); Monocytes Absolute Auto 1.1 K/mm3 (0.1-0.6); Monocytes Percent Auto 12.7 % (2.6-8.5); Neutrophils Absolute Auto 6.3 K/mm3 (1.3-6.7); Neutrophils Percent Auto 71.2 % (45.5-73.1); Platelet Count Result 196 k/mm3 (150-375); Red Blood Count 2.66 M/mm3 (4.6-6.20); Red Cell Distribution Width 13.6 % (11.5-14.5); White Blood Count 8.8 K/mm3 (4.5-10.0)
[2021-01-19 02:29] LABS: Hemoglobin A1C 6.2 % (<5.7)
[2021-01-19 02:32] LABS: Partial Thromboplastin Time 86.7 SECONDS (22.3-36.8)
[2021-01-19 02:37] LABS: Alanine Aminotransferase 11 U/L (4-50); Albumin Level 3.2 g/dL (3.5-5.1); Alkaline Phosphatase 68 U/L (38-126); Anion Gap 10 mmol/L (8-16); Aspartate Amino Transferase 19 U/L (17-59); Bilirubin,Total 0.5 mg/dL (0.2-1.3); Blood Urea Nitrogen 59 mg/dL (9-20); CRP 6.5 mg/dL (<1.0); Calcium 8.4 mg/dL (8.4-10.2); Carbon Dioxide 18 mmol/L (22-30); Chloride 104 mmol/L (98-107); Creatine Kinase 67 U/L (55-170); Estimated CRCL calculation 7 ml/min; Estimated Glomerular Filt Rate 6; Glucose 172 mg/dL (75-110); Magnesium 1.7 mg/dL (1.6-2.3); Phosphorus 5.4 mg/dL (2.5-4.5); Potassium 4.7 mmol/L (3.4-5.0); Sodium 132 mmol/L (137-145); Uric Acid 9.1 mg/dL (3.5-8.5)
[2021-01-19 02:42] LABS: Complement C3 113 mg/dL (88-165)
[2021-01-19 03:54] LABS: Folic Acid > 20.0 ng/mL (2.76->20)
--- NOTE | 2021-01-19 04:47 | ECG_ITS ---
Measurements Intervals [place] Rate: 76 P: 66 SD: 174 QRS: -21 QRSD: 102 T: 81 QT: 367 QTc: 415 Interpretive Statements SINUS RHYTHM DELAYED PRECORDIAL R/S TRANSITION BORDERLINE ST-T WAVE ABNORMALITY- ANT/HIGH LAT LEADS BASELINE ARTIFACT- II, III, AVF, V1 BORDERLINE ECG Electronically Signed On 01-19-2021 7:16:38 [employer] LAUNCH COMMANDER by Herbert Junior D.O.
[2021-01-19] MEDS: NITROGLYCERIN SL 0.4 MG TABLET SUBLINGUAL ×4 (04:56→10:25)
[2021-01-19 05:01] LABS: Iron 72 ug/dL (49-181)
--- NOTE | 2021-01-19 05:14 | PC.NURSE ---
PATIENT C/O CHEST PAIN. DR FAUST AWARE. ORDERS ARE IN. 1 NITRO GIVEN AND PATIENT IS PAIN FREE.
[2021-01-19 05:29] LABS: Troponin I 0.332 ng/mL (0.000-0.034)
[2021-01-19 05:37] LABS: Percent Iron Saturation 30 % (20-50)
[2021-01-19] MEDS: NITROGLYCERIN OINTMENT 1 INCH DOSE TRANSDERM ×3 (06:02→19:08)
[2021-01-19] MEDS: LEVOTHYROXINE SODIUM 50 MCG TABLET PO (06:03)
--- NOTE | 2021-01-19 07:15 | WPDURCON ---
Assessment and Plan Assessment and plan (1) History of aortic valve replacement: Code(s): Z95.2 - Presence of prosthetic heart valve Status: Acute (2) Elevated troponin: Code(s): R77.8 - Other specified abnormalities of plasma proteins Status: Acute (3) Acute kidney failure: Qualifiers: Acute renal failure type: unspecified Qualified Code(s): N17.9 - Acute kidney failure, unspecified Code(s): N17.9 - Acute kidney failure, unspecified Status: Acute (4) Gross hematuria: Code(s): R31.0 - Gross hematuria Status: Acute (5) Hydronephrosis, left: Code(s): N13.30 - Unspecified hydronephrosis Status: Acute Assessment and Plan: Cystoscopy with left retrograde pyelography, left ureteral stent placement and possible clot evacuation. This will allow us to evaluate both his lower urinary tract for sources of hematuria as well as his left collecting system for etiology of obstruction. Urology Consult Note HPI Date Seen: 01/19/21 Requesting Physician: Ozzy Mccoy MD Primary Care Provider: Richard Cartagena MD Consult Narrative Narrative: Mauricio Garces is a 80 year old male Without prior significant urological history and without significant voiding symptoms in the past. He was admitted thru the ER with chest pain after cleaning snow off his cars. At the time of initial evaluation he was found to have marked acute kidney injury with a serum creatinine of 9.0 here. A Romero catheter was placed any subsequently developed hematuria with clots (which has since cleared). A renal ultrasound shows left hydronephrosis. The patient denies a history of known urinary tract infection, urolithiasis and denies significant obstructive voiding symptoms in the past. Review of Systems Cardiovascular: Cardiovascular: Denies chest pain, Denies lightheadedness, Denies palpitations and Denies dyspnea Respiratory: Respiratory: Denies dyspnea Gastrointestinal: Gastrointestinal: Denies diarrhea, Denies nausea and Denies vomiting Genitourinary: Genitourinary: Denies hematuria and Denies dysuria Endocrine: Endocrine: Denies palpitations PMFSH Past Medical History Medical History CAD (coronary artery disease) Diabetes mellitus H/O: HTN (hypertension) History of colon cancer Hyperlipidemia Surgical History Surgical History History of aortic valve replacement History of colon resection History of coronary artery bypass graft Family History Family History Father Heart disease Mother Heart disease Asthma Sibling Heart disease Social History Social History Smoking packs per day: 2 Smoking cigarettes per day: 40.0 Years smoked: 47 Smoking pack-years: 94.00 Smoking status: Former smoker Tobacco type: cigarettes Second hand tobacco smoke exposure: Yes Smoking end date: 12/02/96 Alcohol intake: never Substance use: never Gender identity (if verbalized by the patient): Male 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 (Mosque) Meds Home Medications and Allergies Home Medications Medication Instructions Recorded Confirmed Type aspirin [Adult Aspirin EC Low 325 mg PO DAILY 01/17/21 01/17/21 History Strength] atorvastatin 40 mg PO HS 01/17/21 01/17/21 History cholecalciferol (vitamin D3) 50 mcg PO DAILY 01/17/21 01/17/21 History furosemide 40 mg PO DAILY 01/17/21 01/17/21 History levothyroxine [Synthroid] 50 mcg PO DAILY 01/17/21 01/17/21 History losartan 25 mg PO DAILY 01/17/21 01/17/21 History metoprolol tartrate 25 mg PO BID 01/17/21 01/17/21 History omega 2-nqs-dgq-fish oil [Fish Oil] 1,200 cap PO DAILY 01/17/21 01/17/21 History potassium chloride 20 meq PO DAILY 01/17/21 01/17/21 History tamsulosin [Mateo
[2021-01-19 08:21] LABS: Partial Thromboplastin Time 79.2 SECONDS (22.3-36.8)
[2021-01-19 08:28] LABS: Glucose Point of Care 159 (65-105)
--- NOTE | 2021-01-19 09:10 | ECG_ITS ---
Measurements Intervals [place] Rate: 102 P: 73 NM: 182 QRS: -40 QRSD: 138 T: 88 QT: 349 QTc: 456 Interpretive Statements SINUS TACHYCARDIA LEFT AXIS DEVIATION LEFT BUNDLE BRANCH BLOCK ABNORMAL ECG Electronically Signed On 01-19-2021 9:53:19 PRACTICE REPRESENTATIVE by Herbert Junior D.O.
[2021-01-19] MEDS: ONDANSETRON INJ 4 MG/2 ML VIAL IV PUSH (09:18)
[2021-01-19 10:01] LABS: Troponin I 0.284 ng/mL (0.000-0.034)
[2021-01-19] MEDS: METOPROLOL TARTRATE 25 MG TABLET PO ×2 (10:25→19:08)
[2021-01-19] MEDS: FAMOTIDINE 20 MG/2 ML VIAL IV PUSH ×2 (10:25→21:30)
--- NOTE | 2021-01-19 10:27 | PM.PNCARD ---
Progress Note: A&P Assessment and Plan (1) Non-ST elevation [place] (NSTEMI): Code(s): I21.4 - Non-ST elevation (NSTEMI) myocardial infarction Status: Acute Assessment and Plan: Patient has a clinical scenario consistent with acute coronary syndrome. He does have a history of coronary disease and coronary bypass grafting on 2 separate occasions. Details are as above. He still has some residual pain but at this point given his severe renal insufficiency, he will be treated medically for now. If/when his renal function improves, consider cardiac catheterization. Could also risk stratify with a Lexiscan when more medically stable. Will request records from the [place] including most recent echocardiogram as well as stress test that he states was performed last year. Repeat troponin. IV Zofran 4 mg given. Repeat nitroglycerin sublingually has already been provided. Still having intermittent chest pain and therefore will transfer him to the unit to initiate nitroglycerin drip. Continue heparin. Will continue to trend enzymes. If his chest pain cannot be controlled, he will need to proceed to the cardiac catheterization lab regardless of his kidney function (2) Acute kidney failure: Qualifiers: Acute renal failure type: unspecified Qualified Code(s): N17.9 - Acute kidney failure, unspecified Code(s): N17.9 - Acute kidney failure, unspecified Status: Acute Assessment and Plan: As above. Continue to hold losartan furosemide and potassium. Nephrology following (3) CAD (coronary artery disease): Code(s): I25.10 - Atherosclerotic heart disease of [place] coronary artery without angina pectoris Status: Acute Assessment and Plan: As detailed above (4) Hyperlipidemia: Qualifiers: Hyperlipidemia type: unspecified Qualified Code(s): E78.5 - Hyperlipidemia, unspecified Code(s): E78.5 - Hyperlipidemia, unspecified Status: Chronic Assessment and Plan: Continue statin (5) Hypertension associated with diabetes: Code(s): E11.59 - Type 2 diabetes mellitus with other circulatory complications; I15.2 - Hypertension secondary to endocrine disorders Status: Acute Assessment and Plan: Above goal (6) History of aortic valve replacement: Code(s): Z95.2 - Presence of prosthetic heart valve Status: Acute Assessment and Plan: Sounds to be functioning normally but will order an echocardiogram to ensure Subjective Date/time seen: 01/19/21 10:27 Interval history: 80yo male with hx of CAD, AVR and DM here for chest pain. Date of service 01/19/2021: Patient having active chest pain since around 9:00 a.m. this morning. EKG unchanged but given underlying bundle branch block, difficult to assess for ischemia. Nitroglycerin has helped his pain some a but it continues to recur. Troponins drawn which are lower than they were yesterday but still elevated. He is also nauseated and I gave him IV Zofran was ordered Review of Systems Review of Systems: All systems reviewed & are unremarkable except as noted in HPI and below Constitutional: Constitutional: Denies fatigue, Denies headache(s) and Reports weakness Eyes: Eyes: Denies blurry vision ENT: Reports Normal hearing present, Denies headache(s) and Denies neck pain Cardiovascular: Cardiovascular: Reports chest pain and Reports dyspnea Respiratory: Respiratory: Reports dyspnea Gastrointestinal: Gastrointestinal: Denies abdominal pain and Reports vomiting Genitourinary: Genitourinary: Denies dysuria Musculoskeletal: Musculoskeletal: Denies neck pain Integumentary/Breasts: Skin/Breast: Denies dry skin Neurologic: Reports Normal hearing present, Denies confusion, Denies headache(s) and Reports weakness Psychiatric: Psychiatric: Denies anxiety and Denies confusion Endocrine: Endocrine: Denies fatigue Hematologic/Lymphatic: Hematologic/Lymphatic: Denies easy b
--- NOTE | 2021-01-19 11:00 | PC.NURSE ---
Patient transferred via bed without issue. No complaints of chest pain at this time. Scant bleeding at catheter site. Urine clear and yellow. Spouse to bedside.
--- NOTE | 2021-01-19 11:00 | PC.NURSE ---
This patient, Mauricio Garces, was transferred to ICU 3 on 01/19/21 at 1100. Personal belongings sent with patient. Report given to MAVIS Hagan. Appropriate documentation sent with patient.
--- NOTE | 2021-01-19 11:22 | PM.PNNEP ---
Progress Note: A&P Assessment and Plan (1) Acute kidney failure: Qualifiers: Acute renal failure type: unspecified Qualified Code(s): N17.9 - Acute kidney failure, unspecified Code(s): N17.9 - Acute kidney failure, unspecified Status: Acute Assessment and Plan: Mauricio has acute kidney injury. his ultrasound shows a smallish right kidney and a larger left kidney. He has moderate hydronephrosis draining the good kidney. I talked with Dr. Antonio today and he is going to put a stent in the ureter Draining a good kidney. He had a normal creatinine in 2017. Evaluation is underway in the unlikely event that there is something else going on with the kidneys. the patient may or may not have chronic kidney disease. 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 (2) CAD (coronary artery disease): Code(s): I25.10 - Atherosclerotic heart disease of [place] coronary artery without angina pectoris Status: Acute Assessment and Plan: The patient has coronary disease. As long as he does not have more symptoms, he is getting his kidneys optimize before cardiac catheterization. (3) H/O: HTN (hypertension): Code(s): Z86.79 - Personal history of other diseases of the circulatory system Status: Chronic Assessment and Plan: His blood pressure is under good control (4) Normocytic anemia: Code(s): D64.9 - Anemia, unspecified Status: Acute Assessment and Plan: his hemoglobin is low. Iron saturations are okay. Will start EPO. (5) Diabetes mellitus: Qualifiers: Diabetes mellitus type: type 2 Diabetes mellitus half-way insulin use: with half-way use Diabetes mellitus complication status: without complication Qualified Code(s): E11.9 - Type 2 diabetes mellitus without complications; Z79.4 - assisted (current) use of insulin Code(s): E11.9 - Type 2 diabetes mellitus without complications Status: Chronic Assessment and Plan: He is on Accu-Cheks and sliding-scale insulin (6) History of aortic valve replacement: Code(s): Z95.2 - Presence of prosthetic heart valve Status: Acute Subjective Date/time seen: 01/19/21 11:22 Interval history: the patient feels about the same today. No chest pain or shortness of breath. He has a Romero catheter in and made some urine. Review of Systems Cardiovascular: Cardiovascular: Reports no additional cardiovascular complaints Respiratory: Respiratory: Reports no additional respiratory complaints Gastrointestinal: Gastrointestinal: Reports no additional gastrointestinal complaints Genitourinary: Genitourinary: Reports no additional male genitourinary complaints Exam Narrative: Exam Narrative: WDWN in NAD skin no rash head ncat lungs clear Bilaterally cor reg no rub abd BS+ nontender and soft ext 1+ edema. Objective Data Vital Signs Vital Signs: Vital Signs - 24 hr 01/18/21 12:00 01/18/21 14:00 01/18/21 16:00 Temperature 35.9 C L 35.9 C L Pulse Rate 57 L 65 64 Respiratory Rate 18 20 Blood Pressure 135/41 L 143/59 H Pulse Oximetry 100 97 01/18/21 18:00 01/18/21 20:00 01/18/21 22:00 Temperature 36.5 C Pulse Rate 59 L 71 69 Respiratory Rate 20 Blood Pressure 145/54 H Pulse Oximetry 96 01/18/21 23:55 01/19/21 00:00 01/19/21 00:55 Temperature 36.7 C Pulse Rate 63 69 62 Respiratory Rate 18 20 18 Blood Pressure 155/64 H Pulse Oximetry 95 97 01/19/21 01:05 01/19/21 02:00 01/19/21 04:00 Temperature 36.7 C Pulse Rate 65 62 60 Respiratory Rate 18 16 Blood Pressure 160/67 H Pulse Oximetry 94 01/19/21 06:00 01/19/21 08:00 01/19/21 08:24 Temperature 36.2 C L Pulse Rate 64 71 80 Respiratory Rate 18 18 Blood Pressure 125/60 Pulse Oximetry 98 01/19/21 08:30 01/19/21 08:39 01/19/21 10:
[2021-01-19 11:48] LABS: Creatine Kinase 70 U/L (55-170)
--- NOTE | 2021-01-19 11:51 | WPDCNINT ---
Assessment and Plan Assessment and plan (1) Non-ST elevation [place] (NSTEMI): Code(s): I21.4 - Non-ST elevation (NSTEMI) myocardial infarction Status: Acute Assessment and Plan: CAD with NSTEMI,. elevated troponin, chest pain. -relieved with SL NTG and nitro patch - If chest pain increases will initiate NTG infusion - continue ASA Statin, metoprolol. - no diuretics or KEYONA-I due to YANETH - 01/18/2021 ECHO: LE EF 55-60%, Grade 1 diastolic dysfunction. The apical septum, and apical cap are hypokinetic. mild bioprosthetic aortic valve stenosis. mild to moderate mitral valve regurgitation. Mild Pulm HTN, RVSP 36mmHg (2) Diabetes mellitus: Qualifiers: Diabetes mellitus type: type 2 Diabetes mellitus continuous churn buttermaker insulin use: with custodial use Diabetes mellitus complication status: without complication Qualified Code(s): E11.9 - Type 2 diabetes mellitus without complications; Z79.4 - snf (current) use of insulin Code(s): E11.9 - Type 2 diabetes mellitus without complications Status: Chronic Assessment and Plan: HbA1C is 6.2 this admission - continue accucheks and SSI (3) Acute kidney failure: Qualifiers: Acute renal failure type: unspecified Qualified Code(s): N17.9 - Acute kidney failure, unspecified Code(s): N17.9 - Acute kidney failure, unspecified Status: Acute Assessment and Plan: Yaneth. Creatinine 9.2 on admission ( d/w PCP Dr Cartagena, he stated patient's creatinine was 1.85 on 01/10/2021 and 1.7 - Renal US 01/18/2021: Moderate left hydronephrosis of unclear etiology - Nephrology following (4) Hydronephrosis, left: Code(s): N13.30 - Unspecified hydronephrosis Status: Acute Assessment and Plan: Renal Us 11/17/2021: Moderate left hydronephrosis of unclear etiology. -Urology following, Cystoscopy with left retrograde pyelography, left ureteral stent placement and possible clot evacuation scheduled today - A Romero catheter was placed any subsequently developed hematuria with clots (which has since cleared) (5) H/O: HTN (hypertension): Code(s): Z86.79 - Personal history of other diseases of the circulatory system Status: Chronic Assessment and Plan: continue to monitor (6) Hyperlipidemia: Qualifiers: Hyperlipidemia type: unspecified Qualified Code(s): E78.5 - Hyperlipidemia, unspecified Code(s): E78.5 - Hyperlipidemia, unspecified Status: Chronic Assessment and Plan: continue statin Additional Plan D/w pt and his and updated them with patient's condition and plan of care. I answered all questions. Code status: Full code Critical care time spent: 44 minutes Due to a high probability of clinically significant, life threatening deterioration, the patient required my highest level of preparedness to intervene emergently and I personally spent this critical care time directly and personally managing the patient. This critical care time included obtaining a history; examining the patient; pulse oximetry; ordering and review of studies; arranging urgent treatment with development of a management plan; evaluation of patient's response to treatment; frequent reassessment; and discussions with other providers. It was exclusive of separately billable procedures and treating other patients and teaching time. 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 He did have chest pain early during that day while cleaning the snow off his cars.
[2021-01-19 12:06] LABS: Glucose Point of Care 161 (65-105)
[2021-01-19 15:40] LABS: Glucose Point of Care 138 (65-105)
--- NOTE | 2021-01-19 15:46 | WPDANESEPPF ---
Anes - Initial Pre Proc Eval Procedure: Operation Date: 01/19/21 15:45 Proposed Procedures p Cystoscopy,Left Stent Placement - Leighton Antonio MD s Cystoscopy, Evacuation Bladder Clots - Leighton Antonio MD Date/Time: 01/19/21 15:46 Surgeon: Ozzy Mccoy MD Pre Op Diagnosis: NSTEMI, acute renal failure Patient Data Age: 80 Gender: M Height: 5 ft 9.5 in Weight: 96 kg Last Vital Signs Temp 37.1 C 01/19/21 12:00 Pulse 63 01/19/21 15:16 Resp 20 01/19/21 15:16 BP 148/60 H 01/19/21 14:00 Pulse Ox 100 01/19/21 14:00 Allergies Allergy/AdvReac Type Severity Reaction Status Date / Time codeine Allergy Unknown Verified 07/15/17 11:13 doxazosin Allergy Unknown Verified 07/08/17 19:32 egg Allergy Unknown Verified 07/15/17 11:13 erythromycin base Allergy Unknown Verified 07/15/17 11:13 Influenza Virus Vaccines Allergy Unknown Verified 07/15/17 11:14 lisinopril Allergy Unknown Verified 07/19/17 09:16 metformin Allergy Unknown Verified 07/19/17 09:16 Penicillins Allergy Unknown Verified 07/15/17 11:14 Home Medications Medication Instructions Recorded Confirmed Type aspirin [Adult Aspirin EC Low 325 mg PO DAILY 01/17/21 01/17/21 History Strength] atorvastatin 40 mg PO HS 01/17/21 01/17/21 History cholecalciferol (vitamin D3) 50 mcg PO DAILY 01/17/21 01/17/21 History furosemide 40 mg PO DAILY 01/17/21 01/17/21 History levothyroxine [Synthroid] 50 mcg PO DAILY 01/17/21 01/17/21 History losartan 25 mg PO DAILY 01/17/21 01/17/21 History metoprolol tartrate 25 mg PO BID 01/17/21 01/17/21 History omega 5-xpq-ywl-fish oil [Fish Oil] 1,200 cap PO DAILY 01/17/21 01/17/21 History potassium chloride 20 meq PO DAILY 01/17/21 01/17/21 History tamsulosin [Flomax] 0.4 mg PO DAILY 01/17/21 01/17/21 History vitamin B complex [Super B Complex] 1 cap PO DAILY 01/17/21 01/17/21 History Laboratory Tests 01/18/21 01/18/21 01/18/21 16:47 17:16 20:18 WBC RBC Hgb Hct MCV MCH MCHC RDW Plt Count MPV Immature Gran % (Auto) Neut % (Auto) Lymph % (Auto) [place] % (Auto) Eos % (Auto) Baso % (Auto) Lymph # (Auto) [place] # (Auto) Eos # (Auto) Baso # (Auto) Abs Immat Gran (auto) Absolute Neuts (auto) Absolute Nucleated RBC Nucleated RBC % APTT 140.4 SECONDS H SECONDS (22.3-36.8) Sodium Potassium Chloride Carbon Dioxide Anion Gap BUN Creatinine Estim Creat Clear Calc Estimated GFR Glucose POC Capillary Glucose 176 mg/dl H mg/dl 235 mg/dl H mg/dl (65-105) (65-105) Hemoglobin A1c Uric Acid Calcium Phosphorus Magnesium Iron TIBC % Saturation Ferritin Total Bilirubin AST ALT Alkaline Phosphatase Total Creatine Kinase Troponin I C-Reactive Protein Total Protein Albumin Hougc-4-Hohdwfcvk Ekrxi-9-Swwfejfxp Eads-8-Omydaymy Nfwk-7-Rktbxuux Gamma Globulins Abnorm Protein Band 1 Abnorm Protein Band 3 PEP Interpretation Vitamin B12 Folate TSH (Reflex) Ur Random Creatinine U Random Total Protein Protein/Creatinin Ratio Urine Albumin U Fkkpk-9-Jwfrebkk U Wyaue-4-Zuhfkijb U Beta Globulin U Gamma Globulin U Abnormal Prot Band 1
[2021-01-19] MEDS: SODIUM CHLORIDE 0.9% IV 500 ML 30 ML IV CONT (15:52)
--- NOTE | 2021-01-19 16:49 | WPDHPUPDATE1 ---
History and Physical Update Update Date/Time: 01/19/21 16:49 History and Physical has been reviewed, including an updated exam of the patient. There are NO changes in the patient's condition. Risks, benefits, and alternatives have been discussed and questions answered. Patient agrees to proceed with procedure.
--- NOTE | 2021-01-19 16:55 | PM.IMPN ---
Progress Note: A&P Assessment and Plan (1) Non-ST elevation [place] (NSTEMI): Code(s): I21.4 - Non-ST elevation (NSTEMI) myocardial infarction Status: Acute Assessment and Plan: Patient presents with complaints of chest pain and shortness of breath with exertion. Troponin peaked at 0.33. EKG 01/17 showing delayed transition and borderline ST T wave changes in the anterior lateral and high lateral leads. Repeat EKG later on the same day showing new left bundle branch block. EKGs this mornig during the CP event showed LBBB. No plans for cardiac catheterization given his renal insufficiency and that his CP better controlled. Echo showing EF of 55-60% with grade 1 diastolic dysfunction and hypokinetic apical septum and apical cap. Plan for medical management. Continue aspirin, Lipitor, Lopressor and Nitroglycerin ointment. Appreciate Cardiology input. (2) CAD (coronary artery disease): Code(s): I25.10 - Atherosclerotic heart disease of [place] coronary artery without angina pectoris Status: Acute Assessment and Plan: As above. Plan for continued medical management. (3) Acute kidney failure: Qualifiers: Acute renal failure type: unspecified Qualified Code(s): N17.9 - Acute kidney failure, unspecified Code(s): N17.9 - Acute kidney failure, unspecified Status: Acute Assessment and Plan: Creatinine 9.2 on admission. Patient states that he does not have underlying kidney disease. Last lab work here in July 2017 showing creatinine 1.1. Suspect his renal failure is either subacute or chronic given that he has tolerated this change well. He was on Lasix on admission. He did have a major fall around Xmas. IV fluids started on admission. Patient's creatinine slightly better today. Renal ultrasound showing normal parenchymal echogenicity and moderate left hydronephrosis. Bladder appears normal. UA is negative for protein and blood. Patient is on Flomax. Romero catheter placed. FENa 6.2% to suggest renal (infiltrative?) or possibly post-renal. Urology consulted and patient taken to OR for cystoscopy. Monitor urine output and renal function. Appreciate Nephrology and Urology input. (4) Elevated troponin: Code(s): R77.8 - Other specified abnormalities of plasma proteins Status: Acute Assessment and Plan: Likely secondary to unstable angina/NSTEMI. As above. (5) Normocytic anemia: Code(s): D64.9 - Anemia, unspecified Status: Acute Assessment and Plan: Hgb 9.3 on admission. Patient denies any dark black stools or active colon bleeding. With IV fluids, Hgb dropped to 8 but stable now. Continue to monitor H&H and transfuse p.r.n. as the patient is being anticoagulated with IV heparin. Check iron studies, etc. (6) Hyperlipidemia: Qualifiers: Hyperlipidemia type: unspecified Qualified Code(s): E78.5 - Hyperlipidemia, unspecified Code(s): E78.5 - Hyperlipidemia, unspecified Status: Chronic Assessment and Plan: LFTs normal. LDL 52, HDL 28. Continue Lipitor. (7) H/O: HTN (hypertension): Code(s): Z86.79 - Personal history of other diseases of the circulatory system Status: Chronic Assessment and Plan: Patient's blood pressure was reviewed on 01/19 Blood pressure remains well controlled. Will continue current medications. (8) Diabetes mellitus: Qualifiers: Diabetes mellitus complication status: without complication Diabetes mellitus long-term insulin use: with long-term use Diabetes mellitus type: type 2 Qualified Code(s): E11.9 - Type 2 diabetes mellitus without complications; Z79.4 - alf (current) use of insulin Code(s): E11.9 - Type 2 diabetes mellitus without complications Status: Chronic Assessment and Plan: The patient's blood glucose was reviewed on 01/19 Glucose remains well controlled. Continue AccuCheks
[2021-01-19] MEDS: LIDOCAINE HCL 2% GEL UROJET 10 ML PKG MUCOUS MEM (17:07)
--- NOTE | 2021-01-19 17:22 | PM.PROC ---
Procedure Note - Detailed Date of procedure: 01/19/21 Pre-op diagnosis: NSTEMI, acute renal failure Post-op diagnosis: same Procedure performed: Cystoscopy, left retrograde pyelography and left ureteral stent placement Description of procedure: Patient is brought to the operative suite where he has prepped and draped in routine sterile fashion while in a dorsal lithotomy position. 2% lidocaine jelly was introduced intraurethrally and systemic sedation is administered per the anesthesia department. Because of the recent OH, and other comorbidities, we used a very mild sedation, limiting our ability to do a thorough evaluation of left hydronephrosis (ie. ureteroscopy). With cystoscopy, his urethra was unremarkable. He had moderate prostatic hyperplasia with moderate median lobe. Prostatic urethral length was estimated at 2.5 cm. Bladder was trabeculated. There was some catheter cystitis in the posterior wall but otherwise normal mucosa. There is no intravesical foreign body or neoplasm. An 8 F bulb tip catheter was used to obtain a left retrograde pyelogram. 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 0.035 in glidewire is advanced left renal pelvis and a 6 F variable length stent was positioned with the proximal coil in the renal pelvis and distal coil in the bladder. Scopes and wires were removed. A [address] catheter was placed to straight drainage. Efflux was clear at the termination. Patient tolerated procedure well was taken recovery room in good condition Anesthesia: GLMA Surgeon: Leighton Antonio MD Rack Worker: None Estimated blood loss (mL): 0 Drains: Yes (6F left ureteral stent / 20F 3-way Romero catheter) Packing: No Pathology: none sent Complications: No immediate complications Condition: stable Disposition: PACU
[2021-01-19 17:41] LABS: Glucose Point of Care 139 (65-105)
[2021-01-19 21:12] LABS: Glucose Point of Care 138 (65-105)
[2021-01-19] MEDS: ATORVASTATIN 40 MG TABLET PO (21:30)
[2021-01-19] MEDS: HEPARIN SOD/D5W 100 UNITS/ML 25,000 UNITS/250 ML BAG 10 UNITS IV CONT (23:29)
[2021-01-20] VITALS (23 sets, daily range): BP systolic 111–158; BP diastolic 52–84; PULSE 66–106; RESP 15–22; TEMP 36.8–36.9; O2SAT 92–99
[2021-01-20 00:44] LABS: Partial Thromboplastin Time 60.5 SECONDS (22.3-36.8)
[2021-01-20] MEDS: NITROGLYCERIN OINTMENT 1 INCH DOSE TRANSDERM ×2 (01:00→04:36)
[2021-01-20] MEDS: HEPARIN SODIUM 5,000 UNITS/ML VIAL 3500 UNITS IV PUSH (02:08)
[2021-01-20] MEDS: SODIUM CHLORIDE 0.9% IV 1,000 ML 80 ML IV CONT ×3 (02:10→14:08)
[2021-01-20] MEDS: LEVALBUTEROL NEB 1.25 MG/3 ML 0.63 MG INHALATION ×4 (03:06→20:54)
[2021-01-20] MEDS: NITROGLYCERIN SL 0.4 MG TABLET SUBLINGUAL ×2 (04:30→04:36)
[2021-01-20 05:38] LABS: Basophils Percent Auto 0.3 % (0.2-1.2); Eosinophils Absolute Auto 0.1 K/mm3 (0-0.3); Eosinophils Percent Auto 1.1 % (0-4.4); Hematocrit 24.2 % (42.0-52.0); Hemoglobin 7.9 g/dL (14.0-18.0); Immature Granulocyte Absolute 0.03 K/mm3 (0.00-0.031); Immature Granulocyte Percent A 0.4 % (0-0.5); Lymphocytes Absolute Auto 1.47 K/mm3 (0.9-3.2); Lymphocytes Percent Auto 18.8 % (18.3-44.2); Mean Corpuscular HGB Conc 32.6 g/dl (32-36); Mean Platelet Volume 9.6 fl (7.4-10.4); Monocytes Absolute Auto 1.3 K/mm3 (0.1-0.6); Monocytes Percent Auto 16.7 % (2.6-8.5); Neutrophils Absolute Auto 4.9 K/mm3 (1.3-6.7); Neutrophils Percent Auto 62.7 % (45.5-73.1); Platelet Count Result 243 k/mm3 (150-375); Red Blood Count 2.47 M/mm3 (4.6-6.20); Red Cell Distribution Width 13.9 % (11.5-14.5); White Blood Count 7.8 K/mm3 (4.5-10.0)
[2021-01-20 05:46] LABS: Alanine Aminotransferase 10 U/L (4-50); Albumin Level 3.2 g/dL (3.5-5.1); Alkaline Phosphatase 70 U/L (38-126); Anion Gap 12 mmol/L (8-16); Aspartate Amino Transferase 17 U/L (17-59); Bilirubin,Total 0.5 mg/dL (0.2-1.3); Blood Urea Nitrogen 50 mg/dL (9-20); Calcium 8.8 mg/dL (8.4-10.2); Carbon Dioxide 22 mmol/L (22-30); Chloride 107 mmol/L (98-107); Estimated CRCL calculation 9 ml/min; Estimated Glomerular Filt Rate 7; Glucose 174 mg/dL (75-110); Lipase 162 U/L (23-300); Magnesium 1.7 mg/dL (1.6-2.3); Phosphorus 5.4 mg/dL (2.5-4.5); Potassium 4.7 mmol/L (3.4-5.0); Sodium 141 mmol/L (137-145)
[2021-01-20 06:00] LABS: Troponin I 0.128 ng/mL (0.000-0.034)
--- NOTE | 2021-01-20 06:56 | WPDUROPN2 ---
Progress Note: A&P Assessment and Plan (1) Gross hematuria: Code(s): R31.0 - Gross hematuria Status: Acute (2) Hydronephrosis, left: Code(s): N13.30 - Unspecified hydronephrosis Status: Acute Assessment and Plan: Hematuria likely due to BPH + anticoagulation. Currently, urine essentially clear off CBI. Left hydronephrosis of unclear etiology. Will eventually need further evaluation (ie. ureteroscopy) but that can be deferred several weeks. Serum creat. improved and excellent u/o following stent placement. Subjective Subjective Date/Time Seen: 01/20/21 06:56 Uncomfortable with, but tolerating, Romero catheter Urine slightly pink off CBI Review of Systems Cardiovascular: Cardiovascular: Denies chest pain, Denies lightheadedness, Denies palpitations and Denies dyspnea Respiratory: Respiratory: Denies dyspnea Gastrointestinal: Gastrointestinal: Denies diarrhea, Denies nausea and Denies vomiting Genitourinary: Genitourinary: Denies hematuria and Denies dysuria Endocrine: Endocrine: Denies palpitations Exam Const: General: no acute distress Resp: Effort & Inspection: normal respiratory effort GI: Inspection: non-distended GI Palp: No abdominal tenderness and No Guarding due to palpation present (GI) Auscultation: normal bowel sounds Objective Data Vital Signs Vital Signs: Vital Signs - 24 hr 01/19/21 08:00 01/19/21 08:24 01/19/21 08:30 Temperature 97.1 F L Pulse Rate 68 80 Respiratory Rate 18 18 Blood Pressure 125/60 Pulse Oximetry 98 94 01/19/21 08:39 01/19/21 10:00 01/19/21 10:25 Temperature Pulse Rate 79 90 91 Respiratory Rate 18 Blood Pressure Pulse Oximetry 01/19/21 11:00 01/19/21 12:00 01/19/21 14:00 Temperature 98.7 F Pulse Rate 93 67 54 L Respiratory Rate 27 H 19 16 Blood Pressure 142/69 H 148/70 H 148/60 H Pulse Oximetry 100 98 100 01/19/21 15:12 01/19/21 15:16 01/19/21 15:44 Temperature 98.2 F Pulse Rate 70 63 63 Respiratory Rate 20 20 22 H Blood Pressure 145/73 H Pulse Oximetry 100 01/19/21 16:00 01/19/21 17:26 01/19/21 17:41 Temperature 98.5 F Pulse Rate 64 70 76 Respiratory Rate 14 17 Blood Pressure 118/48 L 118/58 L Pulse Oximetry 98 99 01/19/21 17:51 01/19/21 18:05 01/19/21 19:08 Temperature 97.5 F L Pulse Rate 66 75 66 Respiratory Rate 15 15 Blood Pressure 128/54 L 144/66 H Pulse Oximetry 99 98 01/19/21 19:55 01/19/21 20:00 01/19/21 20:20 Temperature 98.4 F Pulse Rate 56 L 57 L 65 Respiratory Rate 19 18 Blood Pressure 148/78 H Pulse Oximetry 100 100 01/19/21 20:30 01/19/21 20:50 01/19/21 22:00 Temperature Pulse Rate 64 67 Respiratory Rate 18 18 Blood Pressure 153/59 H Pulse Oximetry 99 92 01/20/21 00:00 01/20/21 03:07 01/20/21 03:17 Temperature Pulse Rate 66 76 74 Respiratory Rate 16 18 18 Blood Pressure 130/53 L Pulse Oximetry 93 01/20/21 04:00 01/20/21 04:30 01/20/21 05:54 Temperature 98.4 F 98.4 F Pulse Rate 76 106 H 73 Respiratory Rate 18 22 H 16 Blood Pressure 158/84 H 158/84 H 143/73 H Pulse Oximetry 93 95 98 Intake/Output Intake/Output: Intake & Output 01/17/21 01/18/21 01/19/21 01/20/21 23:59 23:59 23:59 23:59 Intake Total 2465 1550 0 Output Total 1125 3425 1550 Balance 1340 -1875 -1550 Meds/Results Medications: Active Medications Generic Name Dose Route Start Last Admin Trade Name Freq PRN Reason Stop Dose Admin Acetaminophen 650 mg 01/17/21 20:44 01/18/21 23:33 Acetaminophen 325 Mg Tablet PO 650 mg Q4H PRN Administration Mild Pain (1-3) or Fever Aspirin 325 mg 01/18/21 09:00 01/19/21 08:08 Aspirin 325 Mg Enteric Tablet PO Not Given DAILY GIOVANY Atorvastatin Calcium 40 mg 01/18/21 21:00 01/19/21 21:30 Atorvastatin 40 Mg Tablet PO 40 mg HS GIOVANY Administration Dextrose 12.5 gm 01/17/21 21:14 Dextrose 50% 25 Gm/50 Ml Syringe IV PUSH PRN PRN
[2021-01-20] MEDS: LEVOTHYROXINE SODIUM 50 MCG TABLET PO (07:33)
--- NOTE | 2021-01-20 08:03 | WPDANESPN ---
Anes - Prog Note Post-Op Date/Time: 01/20/21 08:03 Cardiovascular status: other (on heparin gtt) Respiratory status: other (on supplemental O2 per NC) Airway patency: baseline Mental status: baseline Post-Op hydration status: normal Vital Signs: Last Vital Signs Temp 36.9 C 01/20/21 05:54 Pulse 87 01/20/21 07:43 Resp 18 01/20/21 07:43 BP 143/73 H 01/20/21 05:54 Pulse Ox 98 01/20/21 07:39 Pain Score (VAS): 2 I/O: Intake & Output 01/19/21 01/20/21 01/20/21 23:59 07:59 15:59 Intake Total 250 0 Output Total 1600 1550 Balance -1350 -1550 Laboratory Tests 01/20/21 05:02 01/20/21 05:02 01/19/21 01/19/21 01/19/21 07:53 08:06 09:30 WBC RBC Hgb Hct MCV MCH MCHC RDW Plt Count MPV Immature Gran % (Auto) Neut % (Auto) Lymph % (Auto) [place] % (Auto) Eos % (Auto) Baso % (Auto) Lymph # (Auto) [place] # (Auto) Eos # (Auto) Baso # (Auto) Abs Immat Gran (auto) Absolute Neuts (auto) Absolute Nucleated RBC Nucleated RBC % APTT 79.2 H Sodium Potassium Chloride Carbon Dioxide Anion Gap BUN Creatinine Estim Creat Clear Calc Estimated GFR Glucose POC Capillary Glucose 159 H Calcium Phosphorus Magnesium Total Bilirubin Direct Bilirubin AST ALT Alkaline Phosphatase Total Creatine Kinase Troponin I 0.284 H* Total Protein Albumin Lipase Ur Random Creatinine U Random Total Protein Protein/Creatinin Ratio Urine Albumin U Ztixm-6-Qzinwtlr U Dzhas-0-Ccddchic U Beta Globulin U Gamma Globulin U Abnormal Prot Band 1 U Abnormal Prot Band 2 U Abnormal Prot Band 3 Urine PEP Interpret 01/19/21 01/19/21 01/19/21 09:30 11:31 12:02 WBC RBC Hgb Hct MCV MCH MCHC RDW Plt Count MPV Immature Gran % (Auto) Neut % (Auto) Lymph % (Auto) [place] % (Auto) Eos % (Auto) Baso % (Auto) Lymph # (Auto) [place] # (Auto) Eos # (Auto) Baso # (Auto) Abs Immat Gran (auto) Absolute Neuts (auto) Absolute Nucleated RBC Nucleated RBC % APTT Sodium Potassium Chloride Carbon Dioxide Anion Gap BUN Creatinine Estim Creat Clear Calc Estimated GFR Glucose POC Capillary Glucose 161 H Calcium Phosphorus Magnesium Total Bilirubin Direct Bilirubin AST ALT Alkaline Phosphatase Total Creatine Kinase 70 Troponin I Total Protein Albumin Lipase Ur Random Creatinine Pending U Random Total Protein Pending Protein/Creatinin Ratio Pending Urine Albumin Pending U Bxzfc-6-Yefxhyqy Pending U Jjldx-4-Qscwkngj Pending U Beta Globulin Pending U Gamma Globulin Pending U Abnormal Prot Band 1 Pending U Abnormal Prot Band 2 Pending U Abnormal Prot Band 3 Pending Urine PEP Interpret Pending 01/19/21 01/19/21 01/19/21 15:38 17:40 21:10 WBC RBC Hgb Hct MCV MCH MCHC RDW Plt Count MPV Immature Gran % (Auto) Neut % (Auto) Lymph % (Auto) [place] % (Auto) Eos % (Auto) Baso % (Auto) Lymph # (Auto) [place] # (Auto) Eos # (Auto) Baso # (Auto) Abs Immat Gran (auto) Absolute Neuts (auto) Absolute Nucleated RBC Nucleated RBC % APTT Sodium Potassium Chloride Carbon Dioxide Anion Gap BUN Creatinine Estim Creat Clear Calc Estimated GFR Glucose POC Capillary Glucose 138 H 139 H 138 H Calcium Phosphorus Magnesium Total Bilirubin Direct Bilirubin AST ALT Alkaline Phosphatase Total Creatine Kinase Troponin I Total Protein Albumin Lipase Ur Random Creatinine U Random Total Protein Protein/Creatinin Ratio Urine Albumin U Gcywn-5-Mdmhcgby U Vyyzo-1-Hchrkhks U Beta Globulin
--- NOTE | 2021-01-20 08:12 | WPDINTPN ---
Progress Note: A&P Assessment and Plan (1) Non-ST elevation [place] (NSTEMI): Code(s): I21.4 - Non-ST elevation (NSTEMI) myocardial infarction Status: Acute Assessment and Plan: CAD with NSTEMI,. elevated troponin, chest pain. -relieved with SL NTG and nitro patch - If chest pain increases will initiate NTG infusion - continue ASA Statin, metoprolol. - no diuretics or KEYONA-I due to YANETH - 01/18/2021 ECHO: LE EF 55-60%, Grade 1 diastolic dysfunction. The apical septum, and apical cap are hypokinetic. mild bioprosthetic aortic valve stenosis. mild to moderate mitral valve regurgitation. Mild Pulm HTN, RVSP 36mmHg -cardiology following the patient (2) Diabetes mellitus: Qualifiers: Diabetes mellitus type: type 2 Diabetes mellitus retirement insulin use: with retirement use Diabetes mellitus complication status: without complication Qualified Code(s): E11.9 - Type 2 diabetes mellitus without complications; Z79.4 - rn long term care (current) use of insulin Code(s): E11.9 - Type 2 diabetes mellitus without complications Status: Chronic Assessment and Plan: HbA1C is 6.2 this admission - continue accucheks and SSI (3) Acute kidney failure: Qualifiers: Acute renal failure type: unspecified Qualified Code(s): N17.9 - Acute kidney failure, unspecified Code(s): N17.9 - Acute kidney failure, unspecified Status: Acute Assessment and Plan: Yaneth. Creatinine 9.2 on admission ( d/w PCP Dr Cartagena, he stated patient's creatinine was 1.85 on 01/10/2021 and 1.7 - Renal US 01/18/2021: Moderate left hydronephrosis of unclear etiology - Nephrology following (4) Hydronephrosis, left: Code(s): N13.30 - Unspecified hydronephrosis Status: Acute Assessment and Plan: Renal Us 11/17/2021: Moderate left hydronephrosis of unclear etiology. -Urology following, -11/18/2021: Status post Cystoscopy, left retrograde pyelography and left ureteral stent placement -urinates kimble colored, will discuss with Urology, patient also on heparin infusion (5) H/O: HTN (hypertension): Code(s): Z86.79 - Personal history of other diseases of the circulatory system Status: Chronic Assessment and Plan: continue to monitor (6) Hyperlipidemia: Qualifiers: Hyperlipidemia type: unspecified Qualified Code(s): E78.5 - Hyperlipidemia, unspecified Code(s): E78.5 - Hyperlipidemia, unspecified Status: Chronic Assessment and Plan: continue statin Additional Plan D/w pt and his and updated them with patient's condition and plan of care. I answered all questions. Code status: Full code Critical care time spent: 33 minutes Due to a high probability of clinically significant, life threatening deterioration, the patient required my highest level of preparedness to intervene emergently and I personally spent this critical care time directly and personally managing the patient. This critical care time included obtaining a history; examining the patient; pulse oximetry; ordering and review of studies; arranging urgent treatment with development of a management plan; evaluation of patient's response to treatment; frequent reassessment; and discussions with other providers. It was exclusive of separately billable procedures and treating other patients and teaching time. Please see Assessment and Plan section and the rest of the note for further information on patient assessment and treatment Subjective Date/time seen: 01/20/21 08:12 Interval history: Reason for consult: Chest pain, NSTEMI, left hydronephrosis, acute kidney injury 01/20/2021: Patient seen and examined the ICU. Complains of chest pain. Denies any shortness of breath, nausea, vomiting diaphoresis. Patient complains of left wrist pain. He was on the telephone ordering his breakfast. Does not look in any distress. Urine output has been good, light kimble color urine output
[2021-01-20] MEDS: FAMOTIDINE 20 MG/2 ML VIAL IV PUSH ×2 (08:14→20:23)
[2021-01-20] MEDS: METOPROLOL TARTRATE 25 MG TABLET PO ×2 (08:14→16:43)
[2021-01-20] MEDS: VITAMIN B COMPLEX CAPSULE 1 CAP PO (08:15)
[2021-01-20] MEDS: ASPIRIN 325 MG ENTERIC TABLET PO (08:15)
[2021-01-20] MEDS: CHOLECALCIFEROL 1,000 UNITS TABLET 2000 UNITS PO (08:16)
[2021-01-20] MEDS: OMEGA 3 POLYUNSAT FATTY ACIDS 1 GM CAP PO (08:16)
[2021-01-20] MEDS: TAMSULOSIN HCL 0.4 MG CAPSULE PO (08:17)
[2021-01-20 08:38] LABS: Partial Thromboplastin Time 126.4 SECONDS (22.3-36.8)
[2021-01-20] MEDS: EPOETIN ALFA-EPBX 10,000 UNITS/ML VIAL 10000 UNITS SUB-Q (09:24)
[2021-01-20] MEDS: CLOPIDOGREL BISULFATE 300 MG TABLET PO (09:24)
[2021-01-20] MEDS: ISOSORBIDE MONONITRATE 60 MG TAB.ER.24H PO (09:25)
--- NOTE | 2021-01-20 09:58 | PM.PNNEP ---
Progress Note: A&P Assessment and Plan (1) Acute kidney failure: Qualifiers: Acute renal failure type: unspecified Qualified Code(s): N17.9 - Acute kidney failure, unspecified Code(s): N17.9 - Acute kidney failure, unspecified Status: Acute Assessment and Plan: Mauricio has acute kidney injury. his ultrasound shows a smallish right kidney and a larger left kidney. He has moderate hydronephrosis draining the good kidney. I Romero catheter did not do much to help the creatinine however the stent did. Discussed with Dr. Gracia. Dr. primo buenrostro said that his creatinine was in the mid ones about 10 days ago. This means all of this is acute and so hopefully will have a rapid recovery from the obstructive nephropathy. He had a normal creatinine in 2017. The creatinine was in the upper 1s in 2019 and 10 days ago. (2) CAD (coronary artery disease): Code(s): I25.10 - Atherosclerotic heart disease of [place] coronary artery without angina pectoris Status: Acute Assessment and Plan: The patient has coronary disease. He had more chest pain yesterday. No pain last night or this morning. (3) H/O: HTN (hypertension): Code(s): Z86.79 - Personal history of other diseases of the circulatory system Status: Chronic Assessment and Plan: His blood pressure is under good control (4) Normocytic anemia: Code(s): D64.9 - Anemia, unspecified Status: Acute Assessment and Plan: his hemoglobin is low. Iron saturations are okay. Will start EPO. (5) Diabetes mellitus: Qualifiers: Diabetes mellitus type: type 2 Diabetes mellitus exterminator helper insulin use: with exterminator helper use Diabetes mellitus complication status: without complication Qualified Code(s): E11.9 - Type 2 diabetes mellitus without complications; Z79.4 - exterminator helper (current) use of insulin Code(s): E11.9 - Type 2 diabetes mellitus without complications Status: Chronic Assessment and Plan: He is on Accu-Cheks and sliding-scale insulin (6) History of aortic valve replacement: Code(s): Z95.2 - Presence of prosthetic heart valve Status: Acute Subjective Date/time seen: 01/20/21 09:58 Interval history: the patient feels about the same today. We reviewed the events. His urine output is up and his creatinine is down. He made about 4L of urine in just about 12 hours. Exam Narrative: Exam Narrative: WDWN in NAD skin no rash or subcu nodules head ncat lungs clear Bilaterally cor reg no rub or gallop abd BS+ nontender and soft ext 1+ edema. Objective Data Vital Signs Vital Signs: Vital Signs - 24 hr 01/19/21 10:00 01/19/21 10:25 01/19/21 11:00 Temperature Pulse Rate 90 91 93 Respiratory Rate 27 H Blood Pressure 142/69 H Pulse Oximetry 100 01/19/21 12:00 01/19/21 14:00 01/19/21 15:12 Temperature 37.1 C Pulse Rate 67 54 L 70 Respiratory Rate 19 16 20 Blood Pressure 148/70 H 148/60 H Pulse Oximetry 98 100 01/19/21 15:16 01/19/21 15:44 01/19/21 16:00 Temperature 36.8 C Pulse Rate 63 63 64 Respiratory Rate 20 22 H Blood Pressure 145/73 H Pulse Oximetry 100 01/19/21 17:26 01/19/21 17:41 01/19/21 17:51 Temperature 36.9 C Pulse Rate 70 76 66 Respiratory Rate 14 17 15 Blood Pressure 118/48 L 118/58 L 128/54 L Pulse Oximetry 98 99 99 01/19/21 18:05 01/19/21 19:08 01/19/21 19:55 Temperature 36.4 C L Pulse Rate 75 66 56 L Respiratory Rate 15 Blood Pressure 144/66 H Pulse Oximetry 98 01/19/21 20:00 01/19/21 20:20 01/19/21 20:30 Temperature 36.9 C Pulse Rate 57 L 65 64 Respiratory Rate 19 18 18 Blood Pressure 148/78 H Pulse Oximetry 100 100 01/19/21 20:50 01/19/21 22:00 01/20/21 00:00 Temperature Pulse Rate 67 66 Respiratory Rate 18 16 Blood Pressure 153/59 H 130/53 L Pulse Oximetry 99 92 93 01/20/21 03:07 01/20/21 03:17 01/20/21 04:00
--- NOTE | 2021-01-20 10:08 | PC.NURSE ---
Patient transferred via bed to [facility] via wheelchair without issue. MAVIS Lee received report prior to transfer.
[2021-01-20] MEDS: INSULIN ASPART (*BKC) 100 UNITS/ML SUB-Q (11:46)
[2021-01-20 11:53] LABS: Glucose Point of Care 332 (65-105)
[2021-01-20 15:07] LABS: Partial Thromboplastin Time 90.5 SECONDS (22.3-36.8)
--- NOTE | 2021-01-20 15:35 | PM.IMPN ---
Progress Note: A&P Assessment and Plan (1) Non-ST elevation [place] (NSTEMI): Code(s): I21.4 - Non-ST elevation (NSTEMI) myocardial infarction Status: Acute Assessment and Plan: Patient presents with complaints of chest pain and shortness of breath with exertion. Troponin peaked at 0.33. EKG 01/17 showing delayed transition and borderline ST T wave changes in the anterior lateral and high lateral leads. Repeat EKG later on the same day showing new left bundle branch block. No plans for cardiac catheterization given his new renal insufficiency and that his CP is better controlled. Echo showing EF of 55-60% with grade 1 diastolic dysfunction and hypokinetic apical septum and apical cap. Plan for medical management. Continue aspirin, Plavix, Lipitor, Lopressor and Imdur. Appreciate Cardiology input. Change to SQ Heparin? (2) Sinus pause: Code(s): I45.5 - Other specified heart block Status: Acute Assessment and Plan: Almost 5 sec cardiac pause this morning; possibly artifact. TSH normal. He is on Metoprolol. No apparent symptoms with this. Will monitor on tele for now. (3) Acute kidney failure: Qualifiers: Acute renal failure type: unspecified Qualified Code(s): N17.9 - Acute kidney failure, unspecified Code(s): N17.9 - Acute kidney failure, unspecified Status: Acute Assessment and Plan: Creatinine 9.2 on admission. Patient states that he does not have underlying kidney disease. Last lab work here in July 2017 showing creatinine 1.1. Suspect his renal failure is either subacute or chronic given that he has tolerated this change well. He was on Lasix on admission. He did have a major fall around Xmas. IV fluids started on admission. Patient's creatinine better today at 7.1. Renal ultrasound showing normal parenchymal echogenicity and moderate left hydronephrosis. Bladder appears normal. UA is negative for protein and blood. Patient is on Flomax. Romero catheter placed. FENa 6.2% to suggest renal (infiltrative?) or possibly post-renal. Monitor urine output and renal function. Appreciate Nephrology input. (4) Hydronephrosis, left: Code(s): N13.30 - Unspecified hydronephrosis Status: Acute Assessment and Plan: Renal ultrasound showing normal parenchymal echogenicity and moderate left hydronephrosis. Bladder appears normal. UA is negative for protein and blood. Patient is on Flomax. Romero catheter placed. Urology consulted and patient was taken to OR for cystoscopy 01/19 with left ureteral stent placed. Concern for possible retroperitoneal fibrosis. Could explain the high FENa. Monitor renal function. (5) Elevated troponin: Code(s): R77.8 - Other specified abnormalities of plasma proteins Status: Acute Assessment and Plan: Likely secondary to unstable angina/NSTEMI. As above. (6) CAD (coronary artery disease): Code(s): I25.10 - Atherosclerotic heart disease of [place] coronary artery without angina pectoris Status: Acute Assessment and Plan: As above. Plan for continued medical management. (7) Normocytic anemia: Code(s): D64.9 - Anemia, unspecified Status: Acute Assessment and Plan: Hgb 9.3 on admission. Patient denies any dark black stools or active colon bleeding. With IV fluids, Hgb dropped to 7.9 but stable now. Iron studies more consistent with anemia of chronic disease. Continue to monitor H&H and transfuse p.r.n. as the patient is being anticoagulated with IV heparin. (8) Hyperlipidemia: Qualifiers: Hyperlipidemia type: unspecified Qualified Code(s): E78.5 - Hyperlipidemia, unspecified Code(s): E78.5 - Hyperlipidemia, unspecified Status: Chronic Assessment and Plan: LFTs normal. LDL 52, HDL 28. Continue Lipitor. (9) H/O: HTN (hypertension): Code(s): Z86.79 - Personal history of other d
[2021-01-20 16:49] LABS: Glucose Point of Care 182 (65-105)
[2021-01-20] MEDS: ATORVASTATIN 40 MG TABLET PO (20:22)
[2021-01-20 20:32] LABS: Glucose Point of Care 138 (65-105)
[2021-01-20 21:26] LABS: Partial Thromboplastin Time 90.9 SECONDS (22.3-36.8)
[2021-01-20] MEDS: HEPARIN SOD/D5W 100 UNITS/ML 25,000 UNITS/250 ML BAG 10 UNITS IV CONT (21:57)
[2021-01-20] MEDS: ONDANSETRON INJ 4 MG/2 ML VIAL IV PUSH (21:57)
--- NOTE | 2021-01-20 23:29 | PC.NURSE ---
This patient, Mauricio Garces, was transferred to [facility] on 01/20/21 at 2315. Personal belongings sent with patient. Report given to MAVIS Valerio. Appropriate documentation sent with patient.
[2021-01-21] VITALS (31 sets, daily range): BP systolic 118–144; BP diastolic 53–70; PULSE 68–105; RESP 16–20; TEMP 36.7–37.2; O2SAT 91–97
[2021-01-21] MEDS: LEVALBUTEROL NEB 1.25 MG/3 ML 0.63 MG INHALATION ×4 (03:10→21:32)
[2021-01-21] MEDS: SODIUM CHLORIDE 0.9% IV 1,000 ML 80 ML IV CONT (03:41)
[2021-01-21] MEDS: NITROGLYCERIN SL 0.4 MG TABLET SUBLINGUAL ×3 (03:52→04:23)
[2021-01-21 05:14] LABS: Hematocrit 22.9 % (42.0-52.0); Hemoglobin 7.4 g/dL (14.0-18.0); Mean Corpuscular HGB Conc 32.3 g/dl (32-36); Mean Corpuscular Hemoglobin 31.9 pg (26-34); Mean Corpuscular Volume 98.7 fl (80-100); Mean Platelet Volume 9.5 fl (7.4-10.4); Platelet Count Result 203 k/mm3 (150-375); Red Blood Count 2.32 M/mm3 (4.6-6.20); Red Cell Distribution Width 13.9 % (11.5-14.5); White Blood Count 7.1 K/mm3 (4.5-10.0)
[2021-01-21 05:26] LABS: Partial Thromboplastin Time 84.5 SECONDS (22.3-36.8)
[2021-01-21 05:43] LABS: Albumin Level 3.1 g/dL (3.5-5.1); Anion Gap 7 mmol/L (8-16); Blood Urea Nitrogen 36 mg/dL (9-20); Calcium 8.8 mg/dL (8.4-10.2); Carbon Dioxide 22 mmol/L (22-30); Chloride 111 mmol/L (98-107); Estimated CRCL calculation 13 ml/min; Estimated Glomerular Filt Rate 12; Glucose 167 mg/dL (75-110); Magnesium 1.5 mg/dL (1.6-2.3); Phosphorus 3.9 mg/dL (2.5-4.5); Potassium 3.8 mmol/L (3.4-5.0); Sodium 140 mmol/L (137-145)
--- NOTE | 2021-01-21 05:52 | ECG_ITS ---
Measurements Intervals [place] Rate: 90 P: 28 VA: 153 QRS: -44 QRSD: 129 T: 88 QT: 370 QTc: 455 Interpretive Statements SINUS RHYTHM LEFT AXIS DEVIATION LEFT BUNDLE BRANCH BLOCK BASELINE ARTIFACT- II, III, AVR, AVF, V3-V4 ABNORMAL ECG Electronically Signed On 01-21-2021 8:04:44 MASH TUB COOKER OPERATOR by Herbert Junior D.O.
[2021-01-21] MEDS: LEVOTHYROXINE SODIUM 50 MCG TABLET PO (06:39)
--- NOTE | 2021-01-21 06:48 | PC.NURSE ---
Called Lesley to let her know pt moved from icu to 201 last night and that pt was having some chest pain and anxiety this morning.
[2021-01-21 07:38] LABS: Troponin I 0.075 ng/mL (0.000-0.034)
[2021-01-21 08:33] LABS: Glucose Point of Care 175 (65-105)
--- NOTE | 2021-01-21 08:54 | PM.PNCARD ---
Progress Note: A&P Assessment and Plan (1) Non-ST elevation [place] (NSTEMI): Code(s): I21.4 - Non-ST elevation (NSTEMI) myocardial infarction Status: Acute Assessment and Plan: Patient has a clinical scenario consistent with acute coronary syndrome. He does have a history of coronary disease and coronary bypass grafting on 2 separate occasions. At this point given his severe renal insufficiency, he will be treated medically for now. If/when his renal function improves, consider cardiac catheterization. Could also risk stratify with a Lexiscan when more medically stable. [facility]. Continue heparin. Long discussion (25 min) with the patient about his difficult situation; want to prevent a heart attack and heart damage, but exposure to IV contrast with cardiac catheterization may cause acute renal failure, in which case he may need dialysis. In addition, he has hematuria, which increases his risk of complications even further. Unknown if ARF and dialysis would be a temporary problem or permanent. We are trying to wait as long as possible to do a cardiac catheterization to give his renal function time to improve. If his chest pain cannot be controlled, he will need to proceed to the cardiac catheterization lab regardless of his kidney function. In the meantime, he seems to be in failure which may be exacerbating his angina. Discussed with Dr. York; will reduce IV fluids to KVO and Dr. York will give some IV Lasix. Also he may benefit from a lower heart rate so I have increased his metoprolol. Changed ASA to 81 mg qd. Can give some IV morphine and metoprolol also prn for tachycardia and angina. Discussed above w/ pt's RN. (2) Acute kidney failure: Qualifiers: Acute renal failure type: unspecified Qualified Code(s): N17.9 - Acute kidney failure, unspecified Code(s): N17.9 - Acute kidney failure, unspecified Status: Acute Assessment and Plan: As above. Continue to hold losartan and potassium. Diuresing, and renal function is improving. Nephrology following (3) CAD (coronary artery disease): Code(s): I25.10 - Atherosclerotic heart disease of [place] coronary artery without angina pectoris Status: Acute Assessment and Plan: As detailed above (4) Hypertension associated with diabetes: Code(s): E11.59 - Type 2 diabetes mellitus with other circulatory complications; I15.2 - Hypertension secondary to endocrine disorders Status: Acute Assessment and Plan: Above goal (5) History of aortic valve replacement: Code(s): Z95.2 - Presence of prosthetic heart valve Status: Acute Assessment and Plan: Functioning normally. (6) LBBB (left bundle branch block): Code(s): I44.7 - Left bundle-branch block, unspecified Status: Acute Assessment and Plan: Has a new left bundle branch block, unclear if this is rate related or related to ischemia but is a worrisome sign. (7) Anemia: Code(s): D64.9 - Anemia, unspecified Status: Acute Assessment and Plan: H&H cont to decline. Pt on heparin, ASA and Plavix, and s/p ureteral stent, has a Romero. Anemia is another myocardial stress. May need PRBCs. Also complicates picture since we want to cont antiplatelet tx and heparin,and if we go to the [employer] [employer] we obligate pt to DAPT. Subjective Date/time seen: 01/21/21 08:54 Interval history: Interval history: 80yo male with hx of CAD, h/o CABG and redo, ACS w/ peak trop 0.33, AVR and DM here for chest pain, ARF 2nd hydronephrosis. S/P ureteral stent 01/19/2021 with improvement of renal fxn. He had a catheterization in May of 2010 which showed severe aortic stenosis with occlusion of the LAD a
[2021-01-21] MEDS: TAMSULOSIN HCL 0.4 MG CAPSULE PO (10:08)
[2021-01-21] MEDS: VITAMIN B COMPLEX CAPSULE 1 CAP PO (10:08)
[2021-01-21] MEDS: CLOPIDOGREL BISULFATE 75 MG TABLET PO (10:08)
[2021-01-21] MEDS: ISOSORBIDE MONONITRATE 60 MG TAB.ER.24H PO (10:09)
[2021-01-21] MEDS: METOPROLOL TARTRATE 50 MG TAB PO (10:09)
[2021-01-21] MEDS: OMEGA 3 POLYUNSAT FATTY ACIDS 1 GM CAP PO (10:10)
[2021-01-21] MEDS: CHOLECALCIFEROL 1,000 UNITS TABLET 2000 UNITS PO (10:10)
[2021-01-21] MEDS: FAMOTIDINE 20 MG/2 ML VIAL IV PUSH ×2 (10:13→20:27)
[2021-01-21] MEDS: MAGNESIUM SULF 2 GM/WATER 50ML 2 GM/50 ML BAG IVPB (10:33)
[2021-01-21] MEDS: ASPIRIN 81 MG ENTERIC TABLET PO (10:34)
--- NOTE | 2021-01-21 10:53 | PM.PNNEP ---
Progress Note: A&P Assessment and Plan (1) Acute kidney failure: Qualifiers: Acute renal failure type: unspecified Qualified Code(s): N17.9 - Acute kidney failure, unspecified Code(s): N17.9 - Acute kidney failure, unspecified Status: Acute Assessment and Plan: Mauricio has acute kidney injury. his ultrasound shows a smallish right kidney and a larger left kidney. He has moderate hydronephrosis draining the good kidney. I Romero catheter did not do much to help the creatinine however the stent did. Creatinine is improved down to 4.7. Long discussion with the patient and also with Dr. Kumari. Cardiology is trying to hold off on the cardiac catheterization is long as possible because of the kidney issues. However if he has more symptoms that are unrelenting they will take him to cardiac catheterization. Hopefully things will settle down until after the renal function has recovered. (2) CAD (coronary artery disease): Code(s): I25.10 - Atherosclerotic heart disease of [place] coronary artery without angina pectoris Status: Acute Assessment and Plan: The patient has coronary disease. He had more chest pain yesterday. Doing okay today. (3) H/O: HTN (hypertension): Code(s): Z86.79 - Personal history of other diseases of the circulatory system Status: Chronic Assessment and Plan: His blood pressure is ranging in the 130s and 140s. Pulse is okay. Will increase metoprolol (4) Normocytic anemia: Code(s): D64.9 - Anemia, unspecified Status: Acute Assessment and Plan: his hemoglobin is low. Iron saturations are okay. Will start EPO. 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 He had chest pain yesterday evening responsive to nitro. He slept well overnight and no more chest pain today. No shortness of breath. Review of Systems Cardiovascular: Cardiovascular: Reports no additional cardiovascular complaints Respiratory: Respiratory: Reports no additional respiratory complaints Gastrointestinal: Gastrointestinal: Reports no additional gastrointestinal complaints Genitourinary: Genitourinary: Reports no additional male genitourinary complaints Exam Narrative: Exam Narrative: WDWN in NAD skin no rash or subcu nodules head ncat lungs were crackles at the bases cor reg no rub or gallop abd BS+ nontender and soft ext 1+ edema and no cyanosis. Objective Data Vital Signs Vital Signs: Vital Signs - 24 hr 01/20/21 12:00 01/20/21 14:00 01/20/21 14:31 Temperature 36.8 C Pulse Rate 68 80 76 Respiratory Rate 17 18 Blood Pressure 125/55 L Pulse Oximetry 95 01/20/21 14:37 01/20/21 16:00 01/20/21 16:43 Temperature 36.8 C Pulse Rate 78 71 71 Respiratory Rate 18 16 Blood Pressure 111/60 Pulse Oximetry 98 01/20/21 18:00 01/20/21 20:00 01/20/21 20:55 Temperature 36.8 C Pulse Rate 66 67 69 Respiratory Rate 16 22 H Blood Pressure 125/62 Pulse Oximetry 94 96 01/20/21 21:00 01/20/21 23:41 01/21/21 00:00 Temperature 36.8 C Pulse Rate 71 88 90 Respiratory Rate 18 16 Blood Pressure 136/62 Pulse Oximetry 92 01/21/21 00:36 01/21/21 02:00 01/21/21 03:10 Temperature Pulse Rate 92 82 Respiratory Ra
[2021-01-21 12:12] LABS: Glucose Point of Care 294 (65-105)
[2021-01-21 13:22] LABS: Glucose Point of Care 276 (65-105)
[2021-01-21] MEDS: INSULIN ASPART (*BKC) 100 UNITS/ML SUB-Q ×3 (13:45→20:41)
[2021-01-21] MEDS: FUROSEMIDE INJ 40 MG/4 ML VIAL IV PUSH (13:51)
[2021-01-21 14:18] LABS: Partial Thromboplastin Time 69.3 SECONDS (22.3-36.8)
--- NOTE | 2021-01-21 16:48 | PM.IMPN ---
Progress Note: A&P Assessment and Plan (1) Non-ST elevation CA (NSTEMI): Code(s): I21.4 - Non-ST elevation (NSTEMI) myocardial infarction Status: Acute Assessment and Plan: Patient presents with complaints of chest pain and shortness of breath with exertion. Troponin peaked at 0.33. EKG 01/17 showing delayed transition and borderline ST T wave changes in the anterior lateral and high lateral leads. Repeat EKG later on the same day showing new left bundle branch block. No plans for cardiac catheterization given his new renal insufficiency if possible. He continues to have CP but EKG showing no change and Trop continues to trend down. Suspect CP maybe related to anxiety. Echo showing EF of 55-60% with grade 1 diastolic dysfunction and hypokinetic apical septum and apical cap. Plan for medical management until LHC can be performed safely. Continue aspirin, Plavix, Lipitor, Lopressor and Imdur. Appreciate Cardiology input. Remains on Heparin drip due to his persistent complaints of CP. Discussed with cardiology (2) Sinus pause: Code(s): I45.5 - Other specified heart block Status: Acute Assessment and Plan: Almost 5 sec cardiac pause yesterday morning; possibly artifact. TSH normal. He is on Metoprolol. No apparent symptoms with this. No recurrence. Continue tele. (3) Acute kidney failure: Qualifiers: Acute renal failure type: unspecified Qualified Code(s): N17.9 - Acute kidney failure, unspecified Code(s): N17.9 - Acute kidney failure, unspecified Status: Acute Assessment and Plan: Creatinine 9.2 on admission. Patient states that he does not have underlying kidney disease. Last lab work here in July 2017 showing creatinine 1.1. Suspect his renal failure is either subacute or chronic given that he has tolerated this change well. He was on Lasix on admission. He did have a major fall around Xmas. IV fluids started on admission. Renal ultrasound showing normal parenchymal echogenicity and moderate left hydronephrosis. Bladder appears normal. UA is negative for protein and blood. Patient is on Flomax. Romero catheter placed. FENa 6.2% to suggest renal (infiltrative?) or possibly post-renal. Left ureteral stent placed 01/19. Patient's creatinine better today at 4.7. Lasix IV x1 given and IV fluids stopped. Monitor urine output and renal function. Appreciate Nephrology input. (4) Hydronephrosis, left: Code(s): N13.30 - Unspecified hydronephrosis Status: Acute Assessment and Plan: Renal ultrasound showing normal parenchymal echogenicity and moderate left hydronephrosis. Bladder appears normal. UA is negative for protein and blood. Patient is on Flomax. Romero catheter placed. Urology consulted and patient was taken to OR for cystoscopy 01/19 with left ureteral stent placed. Concern for possible retroperitoneal fibrosis. Could explain the high FENa. Now with kimble red urine but no clots. Related to recent procedure and being on Heparin. HH trending down slowly. Monitor renal function and HH. (5) Elevated troponin: Code(s): R77.8 - Other specified abnormalities of plasma proteins Status: Acute Assessment and Plan: Likely secondary to unstable angina/NSTEMI. As above. (6) CAD (coronary artery disease): Code(s): I25.10 - Atherosclerotic heart disease of [place] coronary artery without angina pectoris Status: Acute Assessment and Plan: As above. Plan for continued medical management. (7) Normocytic anemia: Code(s): D64.9 - Anemia, unspecified Status: Acute Assessment and Plan: Hgb 9.3 on admission. Patient denies any dark black stools or active colon bleeding. With IV fluids, Hgb dropped to 7.4 today. Iron studies more consistent with anemia of chronic disease. Continue to monitor H&H and transfuse p.r.n. as the patient is being anticoagulated wi
[2021-01-21 17:52] LABS: Glucose Point of Care 267 (65-105)
[2021-01-21] MEDS: ATORVASTATIN 40 MG TABLET PO (20:28)
[2021-01-21 20:37] LABS: Glucose Point of Care 208 (65-105)
[2021-01-21] MEDS: METOPROLOL TARTRATE 25 MG TABLET 75 MG PO (20:41)
[2021-01-21] MEDS: HEPARIN SOD/D5W 100 UNITS/ML 25,000 UNITS/250 ML BAG 10 UNITS IV CONT (22:01)
[2021-01-21] MEDS: ACETAMINOPHEN 325 MG TABLET 650 MG PO (22:02)
[2021-01-22] VITALS (24 sets, daily range): BP systolic 128–168; BP diastolic 46–72; PULSE 64–96; RESP 18–22; TEMP 36.3–36.9; O2SAT 92–98
[2021-01-22] MEDS: LEVALBUTEROL NEB 1.25 MG/3 ML 0.63 MG INHALATION ×4 (01:44→20:20)
[2021-01-22 03:19] LABS: Kappa\\Lambda Light Chains 2.66 (0.26-1.65)
[2021-01-22 05:11] LABS: Hematocrit 24.9 % (42.0-52.0); Hemoglobin 8.1 g/dL (14.0-18.0); Mean Corpuscular HGB Conc 32.5 g/dl (32-36); Mean Corpuscular Hemoglobin 31.6 pg (26-34); Mean Corpuscular Volume 97.3 fl (80-100); Mean Platelet Volume 9.6 fl (7.4-10.4); Platelet Count Result 242 k/mm3 (150-375); Red Blood Count 2.56 M/mm3 (4.6-6.20); Red Cell Distribution Width 13.8 % (11.5-14.5); White Blood Count 8.4 K/mm3 (4.5-10.0)
[2021-01-22 05:26] LABS: Albumin Level 3.4 g/dL (3.5-5.1); Anion Gap 7 mmol/L (8-16); Blood Urea Nitrogen 30 mg/dL (9-20); Calcium 8.8 mg/dL (8.4-10.2); Carbon Dioxide 25 mmol/L (22-30); Chloride 106 mmol/L (98-107); Estimated CRCL calculation 15 ml/min; Estimated Glomerular Filt Rate 14; Glucose 175 mg/dL (75-110); Partial Thromboplastin Time 66.4 SECONDS (22.3-36.8); Phosphorus 3.5 mg/dL (2.5-4.5); Potassium 3.6 mmol/L (3.4-5.0); Sodium 138 mmol/L (137-145)
[2021-01-22] MEDS: HEPARIN SODIUM 5,000 UNITS/ML VIAL 3500 UNITS IV PUSH (06:13)
[2021-01-22] MEDS: LEVOTHYROXINE SODIUM 50 MCG TABLET PO (07:51)
--- NOTE | 2021-01-22 07:52 | PCOTNOTE ---
The OT treatment was unable to be completed on 01/21/21. Will continue plan of care as appropriate.
[2021-01-22 08:14] LABS: Glucose Point of Care 174 (65-105)
[2021-01-22] MEDS: ASPIRIN 81 MG ENTERIC TABLET PO (08:20)
[2021-01-22] MEDS: VITAMIN B COMPLEX CAPSULE 1 CAP PO (08:20)
[2021-01-22] MEDS: ISOSORBIDE MONONITRATE 60 MG TAB.ER.24H PO (08:20)
[2021-01-22] MEDS: OMEGA 3 POLYUNSAT FATTY ACIDS 1 GM CAP PO (08:20)
[2021-01-22] MEDS: METOPROLOL TARTRATE 25 MG TABLET 75 MG PO ×2 (08:20→20:21)
[2021-01-22] MEDS: TAMSULOSIN HCL 0.4 MG CAPSULE PO (08:20)
[2021-01-22] MEDS: CHOLECALCIFEROL 1,000 UNITS TABLET 2000 UNITS PO (08:20)
[2021-01-22] MEDS: CLOPIDOGREL BISULFATE 75 MG TABLET PO (08:20)
--- NOTE | 2021-01-22 08:51 | PM.PNNEP ---
Progress Note: A&P Assessment and Plan (1) Acute kidney failure: Qualifiers: Acute renal failure type: unspecified Qualified Code(s): N17.9 - Acute kidney failure, unspecified Code(s): N17.9 - Acute kidney failure, unspecified Status: Acute Assessment and Plan: Mauricio has acute kidney injury. his ultrasound shows a smallish right kidney and a larger left kidney. He has moderate hydronephrosis draining the good kidney. I Romero catheter did not do much to help the creatinine however the stent did. Creatinine is improved down to 4.0 The slope of improvement has decreased, probably because of the diuretics. He looks less short of breath now. And his lungs sound better. I am going to hold diuretics for today to let his kidney function improve more quickly. Another chest x-ray has been ordered. (2) CAD (coronary artery disease): Code(s): I25.10 - Atherosclerotic heart disease of [place] coronary artery without angina pectoris Status: Acute Assessment and Plan: The patient has coronary disease. No chest pain in the last 36 hours. (3) H/O: HTN (hypertension): Code(s): Z86.79 - Personal history of other diseases of the circulatory system Status: Chronic Assessment and Plan: His blood pressure is ranging in the 130s and 140s. Pulse is okay. On a higher dose of metoprolol. Pulses in the 60s and 70s. (4) Normocytic anemia: Code(s): D64.9 - Anemia, unspecified Status: Acute Assessment and Plan: his hemoglobin is low. Iron saturations are okay. 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 Still making lots of urine. Review of Systems Cardiovascular: Cardiovascular: Reports no additional cardiovascular complaints Respiratory: Respiratory: Reports no additional respiratory complaints Gastrointestinal: Gastrointestinal: Reports no additional gastrointestinal complaints Genitourinary: Genitourinary: Reports no additional male genitourinary complaints Exam Narrative: Exam Narrative: WDWN in NAD skin no rash or subcu nodules head ncat lungs fairly clear. cor reg no rub or gallop abd BS+ nontender and soft ext 1+ edema and no cyanosis. Objective Data Vital Signs Vital Signs: Vital Signs - 24 hr 01/21/21 10:00 01/21/21 10:09 01/21/21 12:00 Temperature 36.8 C Pulse Rate 80 105 H 72 Respiratory Rate 18 Blood Pressure 124/67 Pulse Oximetry 97 01/21/21 14:00 01/21/21 14:05 01/21/21 14:14 Temperature Pulse Rate 75 72 72 Respiratory Rate 20 20 Blood Pressure Pulse Oximetry 01/21/21 16:00 01/21/21 18:00 01/21/21 20:00 Temperature 36.9 C 36.8 C Pulse Rate 77 76 85 Respiratory Rate 18 18 Blood Pressure 136/54 L 134/58 L Pulse Oximetry 93 94 01/21/21 20:41 01/21/21 21:33 01/21/21 21:35 Temperature Pulse Rate 78 77 77 Respiratory Rate 20 Blood Pressure Pulse Oximetry 92 01/21/21 21:41 01/21/21 22:00 01/22/21 00:00 Temperature 36.6 C Pulse Rate 74 72 67 Respiratory Rate 20 18 Blood Pressure 155/58 H Pulse Oximetry 92 01/22/21 01:44 01/22/21 01:50 01/22/21 02:00 Temperature Pulse Rate 71 74 67 Respiratory Rate 20 20 Blood Pre
--- NOTE | 2021-01-22 10:34 | PM.PNCARD ---
Progress Note: A&P Assessment and Plan (1) Non-ST elevation PR (NSTEMI): Code(s): I21.4 - Non-ST elevation (NSTEMI) myocardial infarction Status: Acute Assessment and Plan: Patient has a clinical scenario consistent with possible acute coronary syndrome. He does have a history of coronary disease and coronary bypass grafting on 2 separate occasions. At this point given his severe renal insufficiency, he will be treated medically for now. If/when his renal function improves, consider cardiac catheterization. Could also risk stratify with a Lexiscan when more medically stable. [facility]. had a long discussion with the patient about his difficult situation; want to prevent a heart attack and heart damage, but exposure to IV contrast with cardiac catheterization may cause acute renal failure, in which case he may need dialysis. In addition, he has hematuria, which increases his risk of complications even further. Unknown if ARF and dialysis would be a temporary problem or permanent. We are trying to wait as long as possible to do a cardiac catheterization to give his renal function time to improve. If his chest pain cannot be controlled, he will need to proceed to the cardiac catheterization lab regardless of his kidney function. In the meantime, he seems to be in failure which may be exacerbating his angina. Observers note that when pt c/o CP he really did not appear in any distress. Wonder if his discomfort was 2nd CHF rather than ACS? In any case, not in a hurry to proceed w/ cath; pt appears stable, trop declined (elevated 2nd ARF vs ACS). Cont ASA and Plavix but will DC heparin and follow. If no further CP, consider OPT Billie vs cath. (2) Acute kidney failure: Qualifiers: Acute renal failure type: unspecified Qualified Code(s): N17.9 - Acute kidney failure, unspecified Code(s): N17.9 - Acute kidney failure, unspecified Status: Acute Assessment and Plan: As above. Continue to hold losartan and potassium. Diuresing, and renal function is improving. Nephrology following (3) CAD (coronary artery disease): Code(s): I25.10 - Atherosclerotic heart disease of [place] coronary artery without angina pectoris Status: Acute Assessment and Plan: As detailed above (4) Acute diastolic CHF (congestive heart failure): Code(s): I50.31 - Acute diastolic (congestive) heart failure Status: Acute Assessment and Plan: Appeared volume overloaded yesterday with rales in chest discomfort, improved though not completely resolved today. (5) Hypertension associated with diabetes: Code(s): E11.59 - Type 2 diabetes mellitus with other circulatory complications; I15.2 - Hypertension secondary to endocrine disorders Status: Acute Assessment and Plan: Reasonably controlled. (6) History of aortic valve replacement: Code(s): Z95.2 - Presence of prosthetic heart valve Status: Acute Assessment and Plan: Functioning normally. (7) LBBB (left bundle branch block): Code(s): I44.7 - Left bundle-branch block, unspecified Status: Acute Assessment and Plan: Has a new left bundle branch block, unclear if this is rate related or related to ischemia but is a worrisome sign. (8) Anemia: Code(s): D64.9 - Anemia, unspecified Status: Acute Assessment and Plan: H&H stabilized. Pt on heparin, ASA and Plavix, and s/p ureteral stent, has a Romero. Anemia is another myocardial stress. 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 Wi
[2021-01-22 11:54] LABS: Glucose Point of Care 277 (65-105)
[2021-01-22] MEDS: INSULIN ASPART (*BKC) 100 UNITS/ML SUB-Q ×3 (12:05→20:41)
--- NOTE | 2021-01-22 13:21 | PM.IMPN ---
Progress Note: A&P Assessment and Plan (1) Non-ST elevation CT (NSTEMI): Code(s): I21.4 - Non-ST elevation (NSTEMI) myocardial infarction Status: Acute Assessment and Plan: Patient presents with complaints of chest pain and shortness of breath with exertion. Troponin peaked at 0.33. EKG 01/17 showing delayed transition and borderline ST T wave changes in the anterior lateral and high lateral leads. Repeat EKG later on the same day showing new left bundle branch block. Echo showing EF of 55-60% with grade 1 diastolic dysfunction and hypokinetic apical septum and apical cap. Holding off on cardiac catheterization (if possible) given his new renal insufficiency. He continues to have intermittent CP but EKG showing no change and Trop continues to trend down. Suspect a component of the CP maybe related to anxiety. Plan for medical management until LHC can be performed safely. CXR reviewed from today showing CMG, mild pulm edema and bibasilar airspace disease (also possible left lung nodule - check CT). showing Continue aspirin, Plavix, Lipitor, Lopressor and Imdur. Appreciate Cardiology input. Heparin drip stopped today. (2) Sinus pause: Code(s): I45.5 - Other specified heart block Status: Acute Assessment and Plan: Almost 5 sec cardiac pause on the morning of 01/20; possibly artifact. TSH normal. He is on Metoprolol. No apparent symptoms with this. No recurrence. Continue tele. (3) Acute kidney failure: Qualifiers: Acute renal failure type: unspecified Qualified Code(s): N17.9 - Acute kidney failure, unspecified Code(s): N17.9 - Acute kidney failure, unspecified Status: Acute Assessment and Plan: Creatinine 9.2 on admission. Patient states that he does not have underlying kidney disease. Last lab work here in July 2017 showing creatinine 1.1. Suspect his renal failure is either subacute or chronic given that he has tolerated this change well. He was on Lasix on admission. He did have a major fall around Xmas. IV fluids started on admission. Renal ultrasound showing normal parenchymal echogenicity and moderate left hydronephrosis. Bladder appears normal. UA is negative for protein and blood. Patient is on Flomax. Romero catheter placed. FENa 6.2% to suggest renal (infiltrative?) or possibly post-renal. Left ureteral stent placed 01/19. Lasix IV x1 given and IV fluids stopped 01/21. Patient's creatinine better today at 4.0. Monitor urine output and renal function. Appreciate Nephrology input. (4) Hydronephrosis, left: Code(s): N13.30 - Unspecified hydronephrosis Status: Acute Assessment and Plan: Renal ultrasound showing normal parenchymal echogenicity and moderate left hydronephrosis. Bladder appears normal. UA is negative for protein and blood. Patient is on Flomax. Romero catheter placed. Urology consulted and patient was taken to OR for cystoscopy 01/19 with left ureteral stent placed. Concern for possible retroperitoneal fibrosis. Could explain the high FENa. Persistent kimble red urine but no clots related to recent procedure and being on Heparin. HH better. Monitor renal function and HH. Heparin drip stopped (5) Elevated troponin: Code(s): R77.8 - Other specified abnormalities of plasma proteins Status: Acute Assessment and Plan: Likely secondary to unstable angina/NSTEMI. As above. (6) CAD (coronary artery disease): Code(s): I25.10 - Atherosclerotic heart disease of [place] coronary artery without angina pectoris Status: Acute Assessment and Plan: As above. Plan for continued medical management. (7) Normocytic anemia: Code(s): D64.9 - Anemia, unspecified Status: Acute Assessment and Plan: Hgb 9.3 on admission. Patient denies any dark black stools or active colon bleeding. With IV fluids, Hgb dropped to 7.4 yesterday; better today at 8.1
[2021-01-22] MEDS: INSULIN DETEMIR 100 UNITS/ML SUB-Q (14:47)
[2021-01-22 15:40] LABS: Complement Total CH50 >60 U/mL (31-60)
[2021-01-22 16:43] LABS: Glucose Point of Care 217 (65-105)
[2021-01-22] MEDS: HEPARIN SODIUM 5,000 UNITS/ML VIAL 5000 UNITS SUB-Q (20:21)
[2021-01-22] MEDS: ATORVASTATIN 40 MG TABLET PO (20:21)
[2021-01-22 20:35] LABS: Glucose Point of Care 297 (65-105)
[2021-01-22 22:43] LABS: Albumin 2.9 g/dL (3.8-4.8); Alpha 1 Globulin 0.4 g/dL (0.2-0.3); Alpha 2 Globulin 0.8 g/dL (0.5-0.9); Beta 1 Globulin 0.4 g/dL (0.4-0.6); Gamma Globulin 0.7 g/dL (0.8-1.7); Protein, Total 5.5 g/dL (6.1-8.1)
[2021-01-23] VITALS (24 sets, daily range): BP systolic 112–162; BP diastolic 47–63; PULSE 59–95; RESP 12–22; TEMP 36.3–36.8; O2SAT 90–99
[2021-01-23 00:10] LABS: Creatinine, Random Urine 54 mg/dL (20-320); Total Protein/Creatinine Ratio 852 mg/g creat (22-128)
[2021-01-23] MEDS: LEVALBUTEROL NEB 1.25 MG/3 ML 0.63 MG INHALATION ×4 (01:42→19:53)
[2021-01-23 05:03] LABS: Basophils Percent Auto 0.2 % (0.2-1.2); Eosinophils Absolute Auto 0.4 K/mm3 (0-0.3); Eosinophils Percent Auto 4.3 % (0-4.4); Hematocrit 24.6 % (42.0-52.0); Hemoglobin 8.1 g/dL (14.0-18.0); Immature Granulocyte Absolute 0.15 K/mm3 (0.00-0.031); Immature Granulocyte Percent A 1.8 % (0-0.5); Lymphocytes Absolute Auto 1.67 K/mm3 (0.9-3.2); Lymphocytes Percent Auto 19.5 % (18.3-44.2); Mean Corpuscular HGB Conc 32.9 g/dl (32-36); Mean Corpuscular Hemoglobin 32.3 pg (26-34); Mean Platelet Volume 9.7 fl (7.4-10.4); Monocytes Absolute Auto 1.5 K/mm3 (0.1-0.6); Monocytes Percent Auto 17.2 % (2.6-8.5); Neutrophils Absolute Auto 4.9 K/mm3 (1.3-6.7); Platelet Count Result 251 k/mm3 (150-375); Red Blood Count 2.51 M/mm3 (4.6-6.20); Red Cell Distribution Width 13.8 % (11.5-14.5); White Blood Count 8.6 K/mm3 (4.5-10.0)
[2021-01-23 05:16] LABS: Albumin Level 3.2 g/dL (3.5-5.1); Anion Gap 5 mmol/L (8-16); Blood Urea Nitrogen 24 mg/dL (9-20); Calcium 8.6 mg/dL (8.4-10.2); Carbon Dioxide 27 mmol/L (22-30); Chloride 106 mmol/L (98-107); Estimated CRCL calculation 19 ml/min; Estimated Glomerular Filt Rate 18; Glucose 160 mg/dL (75-110); Magnesium 1.5 mg/dL (1.6-2.3); Phosphorus 2.9 mg/dL (2.5-4.5); Potassium 3.5 mmol/L (3.4-5.0); Sodium 138 mmol/L (137-145)
[2021-01-23] MEDS: LEVOTHYROXINE SODIUM 50 MCG TABLET PO (06:05)
[2021-01-23] MEDS: INSULIN DETEMIR 100 UNITS/ML SUB-Q (09:59)
[2021-01-23] MEDS: MAGNESIUM SULF 2 GM/WATER 50ML 2 GM/50 ML BAG IVPB (10:00)
[2021-01-23] MEDS: INSULIN ASPART (*BKC) 100 UNITS/ML SUB-Q ×3 (10:00→20:48)
[2021-01-23] MEDS: ASPIRIN 81 MG ENTERIC TABLET PO (10:01)
[2021-01-23] MEDS: VITAMIN B COMPLEX CAPSULE 1 CAP PO (10:01)
[2021-01-23] MEDS: TAMSULOSIN HCL 0.4 MG CAPSULE PO (10:01)
[2021-01-23] MEDS: CLOPIDOGREL BISULFATE 75 MG TABLET PO (10:01)
[2021-01-23] MEDS: CHOLECALCIFEROL 1,000 UNITS TABLET 2000 UNITS PO (10:01)
[2021-01-23] MEDS: EPOETIN ALFA-EPBX 10,000 UNITS/ML VIAL 10000 UNITS SUB-Q (10:02)
[2021-01-23] MEDS: HEPARIN SODIUM 5,000 UNITS/ML VIAL 5000 UNITS SUB-Q ×2 (10:02→20:47)
[2021-01-23] MEDS: METOPROLOL TARTRATE 25 MG TABLET 75 MG PO ×2 (10:02→20:47)
[2021-01-23] MEDS: ISOSORBIDE MONONITRATE 60 MG TAB.ER.24H PO (10:02)
[2021-01-23 12:12] LABS: Glucose Point of Care 249 (65-105)
[2021-01-23 12:12] LABS: Glucose Point of Care 276 (65-105)
--- NOTE | 2021-01-23 12:13 | ECG_ITS ---
Measurements Intervals [place] Rate: 61 P: 51 OK: 175 QRS: -11 QRSD: 110 T: 77 QT: 424 QTc: 430 Interpretive Statements SINUS RHYTHM DELAYED PRECORDIAL R/S TRANSITION BORDERLINE ST-T WAVE ABNORMALITY- ANTEROLAT/HIGH LAT LEADS BASELINE ARTIFACT- I, II, III, AVR, AVF, V1-V2 BORDERLINE ECG Electronically Signed On 01-23-2021 12:59:49 [employer]ING CAR [employer] by Herbert Junior D.O.
--- NOTE | 2021-01-23 12:42 | PM.IMPN ---
Progress Note: A&P Assessment and Plan (1) Pre-syncope: Code(s): R55 - Syncope and collapse Status: Acute Assessment and Plan: Patient had episode where he was feeling weak and fatigued possibly pre-syncopal. Symptoms better after he slept. Could have been tired from therapy. EKG performed showing improvement in the R wave progressing but T wave changes in the anterior leads. Trop still trending down. Could be related to low normal BP as well. Monitor in IMU for now. (2) Non-ST elevation ME (NSTEMI): Code(s): I21.4 - Non-ST elevation (NSTEMI) myocardial infarction Status: Acute Assessment and Plan: Patient presents with complaints of chest pain and shortness of breath with exertion. Troponin peaked at 0.33. EKG 01/17 showing delayed transition and borderline ST T wave changes in the anterior lateral and high lateral leads. Repeat EKG later on the same day showing new left bundle branch block. Echo showing EF of 55-60% with grade 1 diastolic dysfunction and hypokinetic apical septum and apical cap. Repeat EKG as above Holding off on cardiac catheterization (if possible) given his new renal insufficiency. His CP has resolved and Trop continues to trend down. Suspect a component of the CP maybe related to anxiety. Plan for medical management until LHC can be performed safely. CXR reviewed from yesterday showing CMG, mild pulm edema and bibasilar airspace disease (also possible left lung nodule - CT CHest pending). Continue aspirin, Plavix, Lipitor, Lopressor and Imdur. Appreciate Cardiology input. Heparin drip stopped 01/22 (3) Sinus pause: Code(s): I45.5 - Other specified heart block Status: Acute Assessment and Plan: Almost 5 sec cardiac pause on the morning of 01/20; possibly artifact. TSH normal. He is on Metoprolol. No apparent symptoms with this. No recurrence by tele. Continue tele. (4) Acute kidney failure: Qualifiers: Acute renal failure type: unspecified Qualified Code(s): N17.9 - Acute kidney failure, unspecified Code(s): N17.9 - Acute kidney failure, unspecified Status: Acute Assessment and Plan: Creatinine 9.2 on admission. Patient states that he does not have underlying kidney disease. Last lab work here in July 2017 showing creatinine 1.1. Suspect his renal failure is either subacute or chronic given that he has tolerated this change well. He was on Lasix on admission. He did have a major fall causing bruising of his back around Xmas. IV fluids started on admission. Renal ultrasound showing normal parenchymal echogenicity and moderate left hydronephrosis. Bladder appears normal. UA is negative for protein and blood. Patient is on Flomax. Romero catheter placed. FENa 6.2% to suggest renal (infiltrative?) or possibly post-renal. Left ureteral stent placed 01/19. Lasix IV x1 given and IV fluids stopped 01/21. Patient's creatinine better today at 3.3. Monitor urine output and renal function. Appreciate Nephrology input. (5) Acute diastolic CHF (congestive heart failure): Code(s): I50.31 - Acute diastolic (congestive) heart failure Status: Acute Assessment and Plan: Echo showing EF 55-60% and Grade I diastolic dysfunction. CXR 01/22 showing CMG with mild pulmonary edema. Mild CHF exacerbation. Treated with IV Lasix and IV fluids stopped 01/21. Remains on room air since 01/21. (6) Abnormal chest xray: Code(s): R93.89 - Abnormal findings on diagnostic imaging of other specified body structures Status: Acute Assessment and Plan: CXR 01/22 also showing possible left lung nodule. Further evaluation with CT of the chest is recommended. Check CT chest. (7) Hydronephrosis, left: Code(s): N13.30 - Unspecified hydronephrosis Status: Acute Assessment and Plan: Renal ultrasound showing normal parenchymal echogenicity and moderate left hydronephrosi
[2021-01-23 12:55] LABS: Troponin I 0.066 ng/mL (0.000-0.034)
--- NOTE | 2021-01-23 12:55 | PCDIET ---
Weekly nutritional screen. Patient is tolerating current diet with adequate intake. No weight loss reported. No nutritional needs at this time.
[2021-01-23 14:46] LABS: Glucose Point of Care 308 (65-105)
--- NOTE | 2021-01-23 14:49 | PM.PNNEP ---
Progress Note: A&P Assessment and Plan (1) Acute kidney failure: Qualifiers: Acute renal failure type: unspecified Qualified Code(s): N17.9 - Acute kidney failure, unspecified Code(s): N17.9 - Acute kidney failure, unspecified Status: Acute Assessment and Plan: thought to be secondary to obstruction on his one good kidney renal ultrasound demonstrates small right kidney and large left kidney with moderate hydro in the left kidney randolph catheter placement did not help much but placement of left ureteral stent did creatinine slowly improving diuretics were held yesterday given limited improvement in creatinine in the last 24 hours however, depending on imaging/respiratory status, may need to resume diuretics (2) CAD (coronary artery disease): Code(s): I25.10 - Atherosclerotic heart disease of [place] coronary artery without angina pectoris Status: Acute Assessment and Plan: no further chest pain at this time Cardiology following (3) H/O: HTN (hypertension): Code(s): Z86.79 - Personal history of other diseases of the circulatory system Status: Chronic Assessment and Plan: BP doing better by recent check follow trend of hemodynamics (4) Normocytic anemia: Code(s): D64.9 - Anemia, unspecified Status: Acute Assessment and Plan: H/H low partly related to MARY/ARF empirically on Epogen (5) Diabetes mellitus: Qualifiers: Diabetes mellitus complication status: without complication Diabetes mellitus intermediate manager insulin use: with intermediate manager use Diabetes mellitus type: type 2 Qualified Code(s): E11.9 - Type 2 diabetes mellitus without complications; Z79.4 - longterm (current) use of insulin Code(s): E11.9 - Type 2 diabetes mellitus without complications Status: Chronic Assessment and Plan: follow Accu-Cheks on sliding-scale insulin Will continue to follow. Subjective Date/time seen: 01/23/21 14:49 Major complaint at the the time of my visit was that of weakness; denies any chest pain or worsening shortness of breath; states his appetite is not very good either; no acute distress voiced. Exam Narrative: Exam Narrative: General: WD/WN malein NAD Heart: normal S1 and S2; no rub Lungs: clear to auscultation anteriorly Abdomen: soft, nontender, nondistended, positive bowel sounds Extremities: no cyanosis or clubbing; 1+ edema Skin: warm and dry Objective Data Vital Signs Vital Signs: Vital Signs Temp Pulse Resp BP Pulse Ox 01/23/21 14:00 69 01/23/21 12:00 36.3 C L 60 12 112/47 L 96 01/23/21 10:18 77 18 01/23/21 10:13 73 94 01/23/21 10:02 73 01/23/21 10:00 63 01/23/21 08:00 36.5 C 85 20 148/55 H 94 01/23/21 06:00 65 01/23/21 04:00 36.6 C 72 18 162/63 H 97 01/23/21 02:00 65 01/23/21 01:54 73 20 01/23/21 01:43 78 22 H 01/23/21 00:00 66 01/22/21 23:37 36.3 C L 69 18 151/46 H 96 01/22/21 22:00 74 01/22/21 20:31 83 22 H 01/22/21 20:21 96 01/22/21 20:20 80 22 H 93 01/22/21 20:00 66 01/22/21 19:59 36.4 C 73 18 156/62 H 98 Intake/Output Intake/Output: Intake & Output 01/20/21 01/21/21 01/22/21 01/23/21 23:59 23:59 23:59 23:59 Intake Total 2440 3300 1960 620 Output Total 4700 4600 2200 1725 Balance -2676 -2489 -962 -8336 Meds/Results Medications: Active Medications Generic Name Dose Route Start Last Admin Trade Name Corie PRN Reason Stop Dose Admin Acetaminophen 650 mg 01/17/21 20:44 01/21/21 22:02 Acetaminophen 325 Mg Tablet PO 650 mg Q4H PRN Administration Mild Pain (1-3) or Fever Aspirin 81 mg 01/21/21 09:00 01/23/21 10:01 Aspirin 81 Mg Enteric Tablet PO 81 mg DAILY GIOVANY Administration Atorvastatin Calcium 40 mg 01/18/21 21:00 01/22/21 20:21 Atorvastatin 40 Mg Tablet PO 40 mg HS GIOVANY Administrati
--- NOTE | 2021-01-23 14:49 | P.PNNP_ITS ---
Progress Note: A&P Assessment and Plan (1) Acute kidney failure: Qualifiers: Acute renal failure type: unspecified Qualified Code(s): N17.9 - Acute kidney failure, unspecified Code(s): N17.9 - Acute kidney failure, unspecified Status: Acute Assessment and Plan: * thought to be secondary to obstruction on his one good kidney * renal ultrasound demonstrates small right kidney and large left kidney with moderate hydro in the left kidney * randolph catheter placement did not help much but placement of left ureteral stent did * creatinine slowly improving * diuretics were held yesterday given limited improvement in creatinine in the last 24 hours * however, depending on imaging/respiratory status, may need to resume diuretics (2) CAD (coronary artery disease): Code(s): I25.10 - Atherosclerotic heart disease of [place] coronary artery without angina pectoris Status: Acute Assessment and Plan: * no further chest pain at this time * Cardiology following (3) H/O: HTN (hypertension): Code(s): Z86.79 - Personal history of other diseases of the circulatory system Status: Chronic Assessment and Plan: * BP doing better by recent check * follow trend of hemodynamics (4) Normocytic anemia: Code(s): D64.9 - Anemia, unspecified Status: Acute Assessment and Plan: * H/H low * partly related to MARY/ARF * empirically on Epogen (5) Diabetes mellitus: Qualifiers: Diabetes mellitus complication status: without complication Diabetes mellitus termination clerk insulin use: with intermediate use Diabetes mellitus type: type 2 Qualified Code(s): E11.9 - Type 2 diabetes mellitus without complications; Z79.4 - roasterman (current) use of insulin Code(s): E11.9 - Type 2 diabetes mellitus without complications Status: Chronic Assessment and Plan: * follow Accu-Cheks * on sliding-scale insulin Will continue to follow. Subjective Date/time seen: 01/23/21 14:49 Major complaint at the the time of my visit was that of weakness; denies any chest pain or worsening shortness of breath; states his appetite is not very good either; no acute distress voiced. Exam Narrative: Exam Narrative: General: WD/WN malein NAD Heart: normal S1 and S2; no rub Lungs: clear to auscultation anteriorly Abdomen: soft, nontender, nondistended, positive bowel sounds Extremities: no cyanosis or clubbing; 1+ edema Skin: warm and dry Objective Data Vital Signs Vital Signs: Vital Signs Temp Pulse Resp BP Pulse Ox 01/23/21 14:00 69 01/23/21 12:00 36.3 C L 60 12 112/47 L 96 01/23/21 10:18 77 18 01/23/21 10:13 73 94 01/23/21 10:02 73 01/23/21 10:00 63 01/23/21 08:00 36.5 C 85 20 148/55 H 94 01/23/21 06:00 65 01/23/21 04:00 36.6 C 72 18 162/63 H 97 01/23/21 02:00 65 01/23/21 01:54 73 20 01/23/21 01:43 78 22 H 01/23/21 00:00 66 01/22/21 23:37 36.3 C L 69 18 151/46 H 96 01/22/21 22:00 74 01/22/21 20:31 83 22 H 01/22/21 20:21 96 01/22/21 20:20 80 22 H 93 01/22/21 20:00 66 01/22/21 19:59 36.4 C 73 18 156/62 H 98 Intake/Output Intake/Output: Intake & Output
--- NOTE | 2021-01-23 16:14 | PM.PNCARD ---
Progress Note: A&P Assessment and Plan (1) Non-ST elevation [place] (NSTEMI): Code(s): I21.4 - Non-ST elevation (NSTEMI) myocardial infarction Status: Acute Assessment and Plan: Patient has a clinical scenario consistent with possible acute coronary syndrome. He does have a history of coronary disease and coronary bypass grafting on 2 separate occasions. At this point given his severe renal insufficiency, he will be treated medically for now. If/when his renal function improves, consider cardiac catheterization. Could also risk stratify with a Lexiscan when more medically stable. [facility]. Observers note that when pt c/o CP he really did not appear in any distress. Wonder if his discomfort was 2nd CHF rather than ACS? In any case, not in a hurry to proceed w/ cath; pt appears stable, trop declined (elevated 2nd ARF vs ACS). Cont ASA and Plavix but will DC heparin and follow. If no further CP, consider OPT Billie vs cath. Patient denies chest pain or significant shortness of breath at this time. Supportive medical therapy to monitor for further improvement renal function. Discussed with patient and at bedside. They verbalized understanding and agreed. (2) Acute kidney failure: Qualifiers: Acute renal failure type: unspecified Qualified Code(s): N17.9 - Acute kidney failure, unspecified Code(s): N17.9 - Acute kidney failure, unspecified Status: Acute Assessment and Plan: Slowly improving but not at baseline. Continue to hold losartan and potassium. Diuresing, and renal function is improving. Nephrology following (3) CAD (coronary artery disease): Code(s): I25.10 - Atherosclerotic heart disease of [place] coronary artery without angina pectoris Status: Acute Assessment and Plan: As detailed above, continue dual antiplatelet therapy, monitor for bleeding. Continue nitrates, statin, beta-kurtis, DVT prophylaxis. (4) Acute diastolic CHF (congestive heart failure): Code(s): I50.31 - Acute diastolic (congestive) heart failure Status: Acute Assessment and Plan: Clinically more euvolemic, diminished breath sounds at bases otherwise. P.r.n. diuresis. Reassess in a.m.. (5) Hypertension associated with diabetes: Code(s): E11.59 - Type 2 diabetes mellitus with other circulatory complications; I15.2 - Hypertension secondary to endocrine disorders Status: Acute Assessment and Plan: Reasonably controlled, elevated this morning. (6) History of aortic valve replacement: Code(s): Z95.2 - Presence of prosthetic heart valve Status: Acute Assessment and Plan: Functioning normally. Prophylactic antibiotics (7) LBBB (left bundle branch block): Code(s): I44.7 - Left bundle-branch block, unspecified Status: Acute Assessment and Plan: Had a new left bundle branch block initially now resolved nonspecific ST abnormality with septal T-wave inversions. (8) Anemia: Code(s): D64.9 - Anemia, unspecified Status: Acute Assessment and Plan: H&H stabilized. Continue to monitor for signs of bleeding. Off heparin, continue ASA and Plavix. and s/p ureteral stent, has a Romero. Anemia is another myocardial stress. Subjective Date/time seen: Date of service: 01/23/21 16:14 Interval history: Interval history: 80yo male with hx of CAD, h/o CABG and redo, ACS w/ peak trop 0.33, AVR and DM here for chest pain possibly ACS, diast CHF ARF 2nd hydronephrosis. S/P ureteral stent
--- NOTE | 2021-01-23 17:06 | WPDUROPN2 ---
Progress Note: A&P Assessment and Plan (1) Hydronephrosis, left: Code(s): N13.30 - Unspecified hydronephrosis Status: Acute Assessment and Plan: Tolerating left ureteral stent without much problem. Needs left ureteroscopy once other issues fully addressed - nothing urgent. Subjective Subjective Date/Time Seen: 01/23/21 17:06 Toleraing indwelling stent Review of Systems Cardiovascular: Cardiovascular: Denies chest pain, Denies lightheadedness, Denies palpitations and Denies dyspnea Respiratory: Respiratory: Denies dyspnea Gastrointestinal: Gastrointestinal: Denies diarrhea, Denies nausea and Denies vomiting Genitourinary: Genitourinary: Denies hematuria and Denies dysuria Endocrine: Endocrine: Denies palpitations Exam Const: General: no acute distress Resp: Effort & Inspection: normal respiratory effort GI: Inspection: non-distended GI Palp: No abdominal tenderness and No Guarding due to palpation present (GI) Auscultation: normal bowel sounds Objective Data Vital Signs Vital Signs: Vital Signs - 24 hr 01/22/21 18:00 01/22/21 19:59 01/22/21 20:00 Temperature 97.6 F Pulse Rate 80 73 66 Respiratory Rate 18 Blood Pressure 156/62 H Pulse Oximetry 98 01/22/21 20:20 01/22/21 20:21 01/22/21 20:31 Temperature Pulse Rate 80 96 83 Respiratory Rate 22 H 22 H Blood Pressure Pulse Oximetry 93 01/22/21 22:00 01/22/21 23:37 01/23/21 00:00 Temperature 97.3 F L Pulse Rate 74 69 66 Respiratory Rate 18 Blood Pressure 151/46 H Pulse Oximetry 96 01/23/21 01:43 01/23/21 01:54 01/23/21 02:00 Temperature Pulse Rate 78 73 65 Respiratory Rate 22 H 20 Blood Pressure Pulse Oximetry 01/23/21 04:00 01/23/21 06:00 01/23/21 08:00 Temperature 97.9 F 97.7 F Pulse Rate 72 65 85 Respiratory Rate 18 20 Blood Pressure 162/63 H 148/55 H Pulse Oximetry 97 94 01/23/21 10:00 01/23/21 10:02 01/23/21 10:13 Temperature Pulse Rate 63 73 73 Respiratory Rate Blood Pressure Pulse Oximetry 94 01/23/21 10:18 01/23/21 12:00 01/23/21 16:05 Temperature 97.4 F L Pulse Rate 77 59 L 64 Respiratory Rate 18 12 18 Blood Pressure 112/47 L Pulse Oximetry 96 01/23/21 16:31 Temperature Pulse Rate 69 Respiratory Rate 18 Blood Pressure Pulse Oximetry Intake/Output Intake/Output: Intake & Output 01/20/21 01/21/21 01/22/21 01/23/21 23:59 23:59 23:59 23:59 Intake Total 2440 3300 1960 320 Output Total 4700 4600 2200 1225 [facility]2260 -1300 -240 -905 Meds/Results Medications: Active Medications Generic Name Dose Route Start Last Admin Trade Name Freq PRN Reason Stop Dose Admin Acetaminophen 650 mg 01/17/21 20:44 01/21/21 22:02 Acetaminophen 325 Mg Tablet PO 650 mg Q4H PRN Administration Mild Pain (1-3) or Fever Aspirin 81 mg 01/21/21 09:00 01/23/21 10:01 Aspirin 81 Mg Enteric Tablet PO 81 mg DAILY GIOVANY Administration Atorvastatin Calcium 40 mg 01/18/21 21:00 01/22/21 20:21 Atorvastatin 40 Mg Tablet PO 40 mg HS GIOVANY Administration Clopidogrel Bisulfate 75 mg 01/21/21 09:00 01/23/21 10:01 Clopidogrel Bisulfate 75 Mg Tablet PO 75 mg QAM GIOVANY Administration Dextrose 12.5 gm 01/17/21 21:14 Dextrose 50% 25 Gm/50 Ml Syringe IV PUSH PRN PRN Hypoglycemia Protocol Epoetin Parrish-epbx 10,000 units 01/20/21 09:00 01/23/21 10:02 Epoetin Parrish-Epbx 10,000 Units/Ml Vial SUB-Q 10,000 units MOWEFR GIOVANY Administration Fish Oil 1 gm 01/18/21 09:00 01/22/21 08:20 [place] 3 Polyunsat Fatty Acids 1 Gm Cap PO 1 gm DAILY GIOVANY Administration Glucagon 1 mg 01/17/21 21:14 Glucagon For Inj 1 Mg Vial IM PRN PRN Hypoglycemia Protocol Glucose 15 gm 01/17/21 21:14 Glucose Oral Gel 15 Gm Of Glucse In 37.5 Gm Tube PO PRN PRN Hypoglycemia Protocol Heparin Sodium (Porcine) 5,000 units 01/22/21 21:00 01/23/21 10:
[2021-01-23 17:26] LABS: Glucose Point of Care 354 (65-105)
[2021-01-23 20:11] LABS: Glucose Point of Care 257 (65-105)
[2021-01-23] MEDS: ATORVASTATIN 40 MG TABLET PO (20:47)
[2021-01-24] VITALS (26 sets, daily range): BP systolic 129–153; BP diastolic 52–66; PULSE 58–95; RESP 16–24; TEMP 36.2–36.8; O2SAT 91–96
[2021-01-24] MEDS: LEVALBUTEROL NEB 1.25 MG/3 ML 0.63 MG INHALATION ×4 (01:37→20:21)
[2021-01-24 04:39] LABS: Hematocrit 23.3 % (42.0-52.0); Hemoglobin 7.6 g/dL (14.0-18.0); Mean Corpuscular HGB Conc 32.6 g/dl (32-36); Mean Corpuscular Hemoglobin 31.7 pg (26-34); Mean Corpuscular Volume 97.1 fl (80-100); Mean Platelet Volume 9.4 fl (7.4-10.4); Platelet Count Result 250 k/mm3 (150-375); Red Cell Distribution Width 13.6 % (11.5-14.5); White Blood Count 8.6 K/mm3 (4.5-10.0)
[2021-01-24 04:51] LABS: Albumin Level 3.1 g/dL (3.5-5.1); Anion Gap 7 mmol/L (8-16); Blood Urea Nitrogen 21 mg/dL (9-20); Calcium 8.6 mg/dL (8.4-10.2); Carbon Dioxide 27 mmol/L (22-30); Chloride 104 mmol/L (98-107); Estimated CRCL calculation 20 ml/min; Estimated Glomerular Filt Rate 23; Glucose 147 mg/dL (75-110); Magnesium 1.7 mg/dL (1.6-2.3); Phosphorus 3.2 mg/dL (2.5-4.5); Potassium 3.3 mmol/L (3.4-5.0); Sodium 138 mmol/L (137-145)
[2021-01-24] MEDS: LEVOTHYROXINE SODIUM 50 MCG TABLET PO (05:18)
[2021-01-24 07:59] LABS: Glucose Point of Care 158 (65-105)
[2021-01-24] MEDS: INSULIN DETEMIR 100 UNITS/ML 8 UNITS SUB-Q (08:23)
[2021-01-24] MEDS: ASPIRIN 81 MG ENTERIC TABLET PO (08:23)
[2021-01-24] MEDS: ISOSORBIDE MONONITRATE 60 MG TAB.ER.24H PO (08:23)
[2021-01-24] MEDS: HEPARIN SODIUM 5,000 UNITS/ML VIAL 5000 UNITS SUB-Q (08:23)
[2021-01-24] MEDS: METOPROLOL TARTRATE 25 MG TABLET 75 MG PO ×2 (08:23→20:36)
[2021-01-24] MEDS: TAMSULOSIN HCL 0.4 MG CAPSULE PO (08:23)
[2021-01-24] MEDS: CLOPIDOGREL BISULFATE 75 MG TABLET PO (08:23)
[2021-01-24] MEDS: VITAMIN B COMPLEX CAPSULE 1 CAP PO (08:23)
[2021-01-24] MEDS: CHOLECALCIFEROL 1,000 UNITS TABLET 2000 UNITS PO (08:23)
--- NOTE | 2021-01-24 11:00 | PCOTNOTE ---
Patient has been attempted 2 times this A.M. Patient was eating and then Patient had just finished with PT and needed a lying rest break, verbalized feeling shortness of breath and tightness. RN is aware. Patient requested to come back this afternoon.
[2021-01-24 11:55] LABS: Glucose Point of Care 352 (65-105)
[2021-01-24] MEDS: INSULIN ASPART (*BKC) 100 UNITS/ML SUB-Q (11:56)
--- NOTE | 2021-01-24 12:04 | PM.IMPN ---
Progress Note: A&P Assessment and Plan (1) Pre-syncope: Code(s): R55 - Syncope and collapse Status: Acute Assessment and Plan: Patient had episode where he was feeling weak and fatigued possibly pre-syncopal. Symptoms better after he slept. Could have been tired from therapy. EKG performed showing improvement in the R wave progressing but T wave changes in the anterior leads. Trop still trending down. Could be related to low normal BP as well as low hemoglobin. Will continue with the physical therapy and exercise. (2) Non-ST elevation [place] (NSTEMI): Code(s): I21.4 - Non-ST elevation (NSTEMI) myocardial infarction Status: Acute Assessment and Plan: Patient presents with complaints of chest pain and shortness of breath with exertion. Troponin peaked at 0.33. EKG 01/17 showing delayed transition and borderline ST T wave changes in the anterior lateral and high lateral leads. Repeat EKG later on the same day showing new left bundle branch block. Echo showing EF of 55-60% with grade 1 diastolic dysfunction and hypokinetic apical septum and apical cap. Repeat EKG as above Holding off on cardiac catheterization (if possible) given his new renal insufficiency. His CP has resolved and Trop continues to trend down. Suspect a component of the CP maybe related to anxiety. Plan for medical management until LHC can be performed safely. CXR reviewed from yesterday showing CMG, mild pulm edema and bibasilar airspace disease (also possible left lung nodule - CT CHest pending). Continue aspirin, Plavix, Lipitor, Lopressor and Imdur. Appreciate Cardiology input. Heparin drip stopped 01/22 Patient is chest pain-free at present time. (3) Sinus pause: Code(s): I45.5 - Other specified heart block Status: Acute Assessment and Plan: Almost 5 sec cardiac pause on the morning of 01/20; possibly artifact. TSH normal. He is on Metoprolol. No apparent symptoms with this. No recurrence by tele. Continue tele. Monitor closely (4) Acute kidney failure: Qualifiers: Acute renal failure type: unspecified Qualified Code(s): N17.9 - Acute kidney failure, unspecified Code(s): N17.9 - Acute kidney failure, unspecified Status: Acute Assessment and Plan: Creatinine 9.2 on admission. Patient states that he does not have underlying kidney disease. Last lab work here in July 2017 showing creatinine 1.1. Suspect his renal failure is either subacute or chronic given that he has tolerated this change well. He was on Lasix on admission. He did have a major fall causing bruising of his back around Xmas. IV fluids started on admission. Renal ultrasound showing normal parenchymal echogenicity and moderate left hydronephrosis. Bladder appears normal. UA is negative for protein and blood. Patient is on Flomax. Romero catheter placed. FENa 6.2% to suggest renal (infiltrative?) or possibly post-renal. Left ureteral stent placed 01/19. Lasix IV x1 given and IV fluids stopped 01/21. Patient's creatinine better and stable Monitor urine output and renal function. Appreciate Nephrology input. (5) Acute diastolic CHF (congestive heart failure): Code(s): I50.31 - Acute diastolic (congestive) heart failure Status: Acute Assessment and Plan: Echo showing EF 55-60% and Grade I diastolic dysfunction. CXR 01/22 showing CMG with mild pulmonary edema. Mild CHF exacerbation. Treated with IV Lasix and IV fluids stopped 01/21. Remains on room air since 01/21. Will increase activity (6) Abnormal chest xray: Code(s): R93.89 - Abnormal findings on diagnostic imaging of other specified body structures Status: Acute Assessment and Plan: CXR 01/22 also showing possible left lung nodule. Further evaluation with CT of the chest is recommended. Check CT chest. (7) Hydronephrosis, left: Code(s): N13.30 - Unspecified hydronephrosis Statu
--- NOTE | 2021-01-24 12:26 | P.PNNP_ITS ---
Progress Note: A&P Assessment and Plan (1) Acute kidney failure: Qualifiers: Acute renal failure type: unspecified Qualified Code(s): N17.9 - Acute kidney failure, unspecified Code(s): N17.9 - Acute kidney failure, unspecified Status: Acute Assessment and Plan: * thought to be secondary to obstruction on his one good kidney * renal ultrasound demonstrates small right kidney and large left kidney with moderate hydro in the left kidney * randolph catheter placement did not help much but placement of left ureteral stent did * creatinine slowly improving * diuretics on hold given limited improvement in creatinine in the last 24 hours * however, depending on imaging/respiratory status, may need to resume diuretics (2) CAD (coronary artery disease): Code(s): I25.10 - Atherosclerotic heart disease of [place] coronary artery without angina pectoris Status: Acute Assessment and Plan: * no further chest pain at this time * Cardiology following (3) H/O: HTN (hypertension): Code(s): Z86.79 - Personal history of other diseases of the circulatory system Status: Chronic Assessment and Plan: * BP doing better by recent check * follow trend of hemodynamics (4) Normocytic anemia: Code(s): D64.9 - Anemia, unspecified Status: Acute Assessment and Plan: * H/H low * partly related to MARY/ARF * empirically on Epogen (5) Diabetes mellitus: Qualifiers: Diabetes mellitus type: type 2 Diabetes mellitus intermediate insulin use: with intermediate use Diabetes mellitus complication status: without complication Qualified Code(s): E11.9 - Type 2 diabetes mellitus without complications; Z79.4 - termite treater (current) use of insulin Code(s): E11.9 - Type 2 diabetes mellitus without complications Status: Chronic Assessment and Plan: * follow Accu-Cheks * on sliding-scale insulin Will continue to follow. Subjective Date/time seen: 01/24/21 12:26 He appears to be doing reasonably well at this time; thinks he ate his breakfast too quickly as he is having issues with abdominal bloating currently; no other acute issues/events overnight or earlier this AM; no other acute complaints voiced. Exam Narrative: Exam Narrative: General: WD/WN male in NAD Heart: normal S1 and S2; no rub Lungs: clear to auscultation anteriorly Abdomen: soft, nontender, nondistended, positive bowel sounds Extremities: no cyanosis or clubbing; 1+ edema Skin: warm and intact Objective Data Vital Signs Vital Signs: Vital Signs Temp Pulse Resp BP Pulse Ox 01/24/21 11:55 36.8 C 64 18 134/62 95 01/24/21 10:00 70 01/24/21 09:03 92 22 H 01/24/21 08:59 62 01/24/21 08:56 91 24 H 92 01/24/21 08:23 95 01/24/21 08:00 36.6 C 65 18 147/66 H 93 01/24/21 06:00 74 01/24/21 04:00 36.5 C 60 18 153/64 H 94 01/24/21 02:00 64 01/24/21 01:42 60 16 01/24/21 01:40 63 18 96 01/24/21 00:00 58 L 01/23/21 23:50 36.4 C 95 20 130/58 L 95 01/23/21 22:00 60 01/23/21 20:47 77 01/23/21 20:04 68 14 01/23/21 20:00 65 01/23/21 19:53 36.7 C 66 18 127/58 L 99 01/23/21 19:50 66 14 90 01/23/21 18:00 84 01/23/21 16:31 69 18
--- NOTE | 2021-01-24 12:26 | PM.PNNEP ---
Progress Note: A&P Assessment and Plan (1) Acute kidney failure: Qualifiers: Acute renal failure type: unspecified Qualified Code(s): N17.9 - Acute kidney failure, unspecified Code(s): N17.9 - Acute kidney failure, unspecified Status: Acute Assessment and Plan: thought to be secondary to obstruction on his one good kidney renal ultrasound demonstrates small right kidney and large left kidney with moderate hydro in the left kidney randolph catheter placement did not help much but placement of left ureteral stent did creatinine slowly improving diuretics on hold given limited improvement in creatinine in the last 24 hours however, depending on imaging/respiratory status, may need to resume diuretics (2) CAD (coronary artery disease): Code(s): I25.10 - Atherosclerotic heart disease of [place] coronary artery without angina pectoris Status: Acute Assessment and Plan: no further chest pain at this time Cardiology following (3) H/O: HTN (hypertension): Code(s): Z86.79 - Personal history of other diseases of the circulatory system Status: Chronic Assessment and Plan: BP doing better by recent check follow trend of hemodynamics (4) Normocytic anemia: Code(s): D64.9 - Anemia, unspecified Status: Acute Assessment and Plan: H/H low partly related to MARY/ARF empirically on Epogen (5) Diabetes mellitus: Qualifiers: Diabetes mellitus type: type 2 Diabetes mellitus chcf insulin use: with chcf use Diabetes mellitus complication status: without complication Qualified Code(s): E11.9 - Type 2 diabetes mellitus without complications; Z79.4 - alf (current) use of insulin Code(s): E11.9 - Type 2 diabetes mellitus without complications Status: Chronic Assessment and Plan: follow Accu-Cheks on sliding-scale insulin Will continue to follow. Subjective Date/time seen: 01/24/21 12:26 He appears to be doing reasonably well at this time; thinks he ate his breakfast too quickly as he is having issues with abdominal bloating currently; no other acute issues/events overnight or earlier this AM; no other acute complaints voiced. Exam Narrative: Exam Narrative: General: WD/WN male in NAD Heart: normal S1 and S2; no rub Lungs: clear to auscultation anteriorly Abdomen: soft, nontender, nondistended, positive bowel sounds Extremities: no cyanosis or clubbing; 1+ edema Skin: warm and intact Objective Data Vital Signs Vital Signs: Vital Signs Temp Pulse Resp BP Pulse Ox 01/24/21 11:55 36.8 C 64 18 134/62 95 01/24/21 10:00 70 01/24/21 09:03 92 22 H 01/24/21 08:59 62 01/24/21 08:56 91 24 H 92 01/24/21 08:23 95 01/24/21 08:00 36.6 C 65 18 147/66 H 93 01/24/21 06:00 74 01/24/21 04:00 36.5 C 60 18 153/64 H 94 01/24/21 02:00 64 01/24/21 01:42 60 16 01/24/21 01:40 63 18 96 01/24/21 00:00 58 L 01/23/21 23:50 36.4 C 95 20 130/58 L 95 01/23/21 22:00 60 01/23/21 20:47 77 01/23/21 20:04 68 14 01/23/21 20:00 65 01/23/21 19:53 36.7 C 66 18 127/58 L 99 01/23/21 19:50 66 14 90 01/23/21 18:00 84 01/23/21 16:31 69 18 01/23/21 16:05 64 18 01/23/21 16:00 36.8 C 73 18 133/53 L 95 01/23/21 14:00 69 Intake/Output Intake/Output: Intake & Output 01/21/21 01/22/21 01/23/21 01/24/21 23:59 23:59 23:59 23:59 Intake Total 3300 1960 620 560 Output Total 4600 2200 1725 2700 [place] -1300 -240 -1105 -2140 Meds/Results Medications: Active Medications Generic Name Dose Route Start Last Admin Trade Name Freq PRN Reason Stop Dose Admin Acetaminophen 650 mg 01/17/21 20:44 01/21/21 22:02 Acetaminophen 325 Mg Tablet PO 650 mg Q4H PRN Administration Mild Pain (1-3) or Fever Aspirin 81 mg 01/21/21 09:00 01/24/21 08:23 Aspi
[2021-01-24] MEDS: MULTIVIT W/ IRON, MINERALS 15 ML LIQUID (*BKC) PO (12:43)
--- NOTE | 2021-01-24 14:24 | PM.PNCARD ---
Progress Note: A&P Assessment and Plan (1) Non-ST elevation [place] (NSTEMI): Code(s): I21.4 - Non-ST elevation (NSTEMI) myocardial infarction Status: Acute Assessment and Plan: Patient has a clinical scenario consistent with possible acute coronary syndrome. He does have a history of coronary disease and coronary bypass grafting on 2 separate occasions. At this point given his severe renal insufficiency, he will be treated medically for now. If/when his renal function improves, consider cardiac catheterization. Could also risk stratify with a Lexiscan when more medically stable. [facility]. Observers note that when pt c/o CP he really did not appear in any distress. Wonder if his discomfort was 2nd CHF rather than ACS? In any case, not in a hurry to proceed w/ cath; pt appears stable, trop declined (elevated 2nd ARF vs ACS). Cont ASA and Plavix but will DC heparin and follow. Recurrent CP this AM after eating which began as upset stomach, bloating and extended into his chest. slowly subsiding, mild, improved with belching. Recommendations to follow. Continue conservative management at this time. Renal function improving but slowly at creatinine 2.7 this a.m.. Repeat 12 lead EKG, troponin given abdominal and chest discomfort which he believes is GI related. Will clarify further. (2) Acute kidney failure: Qualifiers: Acute renal failure type: unspecified Qualified Code(s): N17.9 - Acute kidney failure, unspecified Code(s): N17.9 - Acute kidney failure, unspecified Status: Acute Assessment and Plan: Slowly improving but not at baseline. Continue to hold losartan and potassium. Renal function slowly improving. Nephrology following (3) CAD (coronary artery disease): Code(s): I25.10 - Atherosclerotic heart disease of [place] coronary artery without angina pectoris Status: Acute Assessment and Plan: As detailed above, continue dual antiplatelet therapy, monitor for bleeding. Continue nitrates, statin, beta-kurtis, DVT prophylaxis. Probably no need for Lovaza at this time. Continue atorvastatin. (4) Acute diastolic CHF (congestive heart failure): Code(s): I50.31 - Acute diastolic (congestive) heart failure Status: Acute Assessment and Plan: Clinically Fairlyeuvolemic, diminished breath sounds at bases otherwise. P.r.n. diuresis. (5) Hypertension associated with diabetes: Code(s): E11.59 - Type 2 diabetes mellitus with other circulatory complications; I15.2 - Hypertension secondary to endocrine disorders Status: Acute Assessment and Plan: Reasonably controlled. (6) History of aortic valve replacement: Code(s): Z95.2 - Presence of prosthetic heart valve Status: Acute Assessment and Plan: Functioning normally. Prophylactic antibiotics (7) LBBB (left bundle branch block): Code(s): I44.7 - Left bundle-branch block, unspecified Status: Acute Assessment and Plan: Had a new left bundle branch block initially resolved on subsequent EKG. Repeat EKG today. (8) Anemia: Code(s): D64.9 - Anemia, unspecified Status: Acute Assessment and Plan: H&H slight decline but overall fairly stable. Continue to monitor for signs of bleeding. Off heparin, continue ASA and Plavix. and s/p ureteral stent, has a Romero. Anemia is another myocardial stress. Subjective Date/time seen: Date of service:01/24/21 14:24 Interval history: Interval history: 80yo male with hx of CAD, h/o CABG and redo
--- NOTE | 2021-01-24 14:26 | ECG_ITS ---
Measurements Intervals Williams Rate: 64 P: 45 CT: 176 QRS: -29 QRSD: 107 T: 101 QT: 422 QTc: 438 Interpretive Statements SINUS RHYTHM POOR R WAVE PROGRESSION, ANTERIOR LEADS NONSPECIFIC ST & T-WAVE ABNORMALITY- ANTEROLAT/HIGH LAT LEADS BORDERLINE ECG Electronically Signed On 01-24-2021 15:27:32 PROJECT FINANCE ANALYST by Herbert Junior D.O.
[2021-01-24 16:04] LABS: Glucose Point of Care 167 (65-105)
[2021-01-24 20:20] LABS: Glucose Point of Care 162 (65-105)
[2021-01-24] MEDS: ATORVASTATIN 40 MG TABLET PO (20:36)
[2021-01-25] VITALS (24 sets, daily range): BP systolic 118–151; BP diastolic 40–64; PULSE 60–99; RESP 18–22; TEMP 36.1–36.6; O2SAT 94–98
[2021-01-25] MEDS: LEVALBUTEROL NEB 1.25 MG/3 ML 0.63 MG INHALATION ×4 (02:40→20:44)
[2021-01-25 04:55] LABS: Hematocrit 23.7 % (42.0-52.0); Hemoglobin 7.7 g/dL (14.0-18.0); Mean Corpuscular HGB Conc 32.5 g/dl (32-36); Mean Corpuscular Hemoglobin 32.1 pg (26-34); Mean Corpuscular Volume 98.8 fl (80-100); Mean Platelet Volume 9.7 fl (7.4-10.4); Platelet Count Result 282 k/mm3 (150-375); Red Cell Distribution Width 13.5 % (11.5-14.5); White Blood Count 9.1 K/mm3 (4.5-10.0)
[2021-01-25] MEDS: LEVOTHYROXINE SODIUM 50 MCG TABLET PO (05:51)
[2021-01-25] MEDS: VITAMIN B COMPLEX CAPSULE 1 CAP PO (08:52)
[2021-01-25] MEDS: ASPIRIN 81 MG ENTERIC TABLET PO (08:52)
[2021-01-25] MEDS: TAMSULOSIN HCL 0.4 MG CAPSULE PO (08:52)
[2021-01-25] MEDS: ISOSORBIDE MONONITRATE 60 MG TAB.ER.24H PO (08:52)
[2021-01-25] MEDS: METOPROLOL TARTRATE 25 MG TABLET 75 MG PO ×2 (08:52→20:23)
[2021-01-25] MEDS: CHOLECALCIFEROL 1,000 UNITS TABLET 2000 UNITS PO (08:52)
[2021-01-25] MEDS: CLOPIDOGREL BISULFATE 75 MG TABLET PO (08:52)
[2021-01-25] MEDS: INSULIN DETEMIR 100 UNITS/ML 8 UNITS SUB-Q (08:53)
[2021-01-25] MEDS: MULTIVIT W/ IRON, MINERALS 15 ML LIQUID (*BKC) PO (08:53)
[2021-01-25] MEDS: EPOETIN ALFA-EPBX 10,000 UNITS/ML VIAL 10000 UNITS SUB-Q (08:57)
[2021-01-25 11:19] LABS: Anion Gap 7 mmol/L (8-16); Blood Urea Nitrogen 22 mg/dL (9-20); Calcium 8.6 mg/dL (8.4-10.2); Carbon Dioxide 26 mmol/L (22-30); Chloride 103 mmol/L (98-107); Estimated CRCL calculation 22 ml/min; Estimated Glomerular Filt Rate 25; Glucose 285 mg/dL (75-110); Potassium 3.4 mmol/L (3.4-5.0); Sodium 136 mmol/L (137-145)
--- NOTE | 2021-01-25 12:10 | PM.PNNEP ---
Progress Note: A&P Assessment and Plan (1) Acute kidney failure: Qualifiers: Acute renal failure type: unspecified Qualified Code(s): N17.9 - Acute kidney failure, unspecified Code(s): N17.9 - Acute kidney failure, unspecified Status: Acute Assessment and Plan: thought to be secondary to obstruction on his one good kidney renal ultrasound demonstrates small right kidney and large left kidney with moderate hydro in the left kidney randolph catheter placement did not help much but placement of left ureteral stent did creatinine slowly improving - unclear on baseline but creatinine was 1.39mg/dl in 2019 diuretics on hold currently however, depending on imaging/respiratory status, may need to resume diuretics (2) CAD (coronary artery disease): Code(s): I25.10 - Atherosclerotic heart disease of [place] coronary artery without angina pectoris Status: Acute Assessment and Plan: no further chest pain at this time Cardiology following (3) H/O: HTN (hypertension): Code(s): Z86.79 - Personal history of other diseases of the circulatory system Status: Chronic Assessment and Plan: BP doing better by recent check follow trend of hemodynamics (4) Normocytic anemia: Code(s): D64.9 - Anemia, unspecified Status: Acute Assessment and Plan: H/H low partly related to MARY/ARF empirically on Epogen (5) Diabetes mellitus: Qualifiers: Diabetes mellitus complication status: without complication 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 Subjective Date/time seen: 01/25/21 12:10 Seems to be doing reasonably well at the time of my visit; continues to have good urine output with slow improvement in creatinine noted; no apparent distress voiced; no issues or events overnight or earlier this AM. Exam Narrative: Exam Narrative: General: WD/WN male in NAD Heart: normal S1 and S2; no rub Lungs: clear to auscultation anteriorly Abdomen: soft, nontender, nondistended, positive bowel sounds Extremities: no cyanosis or clubbing; 1+ edema Skin: no rash or nodules Objective Data Vital Signs Vital Signs: Vital Signs Temp Pulse Resp BP Pulse Ox 01/25/21 12:00 36.1 C L 65 18 131/53 L 97 01/25/21 10:00 61 01/25/21 09:43 94 01/25/21 08:52 99 01/25/21 08:25 75 18 01/25/21 08:15 73 18 01/25/21 08:00 36.2 C L 82 22 H 148/59 H 94 01/25/21 06:00 60 01/25/21 04:00 36.6 C 65 20 118/40 L 96 01/25/21 02:41 65 18 01/25/21 02:00 66 01/25/21 00:00 65 01/24/21 23:48 36.6 C 65 20 153/57 H 96 01/24/21 22:00 64 01/24/21 20:36 81 01/24/21 20:30 66 18 01/24/21 20:24 91 01/24/21 20:23 68 18 01/24/21 20:00 36.6 C 68 20 148/52 H 96 Intake/Output Intake/Output: Intake & Output 01/22/21 01/23/21 01/24/21 01/25/21 23:59 23:59 23:59 23:59 Intake Total 4044 778 8459 1940 Output Total 2200 1725 3350 3300 [facility] [place] -5515 -5720 -9900 Meds/Results Medications: Active Medications Generic Name Dose Route Start Last Admin Trade Name Corie PRN Reason Stop Dose Admin Acetaminophen 650 mg 01/17/21 20:44 01/21/21 22:02 Acetaminophen 325 Mg Tablet PO 650 mg Q4H PRN Administration Mild Pain (1-3) or Fever Aspirin 81 mg 01/21/21 09:00 01/25/21 08:52 Aspirin 81 Mg Enteric Tablet PO 81 mg DAILY GIOVANY Administration Atorvastatin Calcium 40 mg 01/18/21 21:00 01/24/21 20:36 Atorvastatin 40 Mg Tablet PO 40 mg HS GIOVANY Administration Clopidog
--- NOTE | 2021-01-25 12:10 | P.PNNP_ITS ---
Progress Note: A&P Assessment and Plan (1) Acute kidney failure: Qualifiers: Acute renal failure type: unspecified Qualified Code(s): N17.9 - Acute kidney failure, unspecified Code(s): N17.9 - Acute kidney failure, unspecified Status: Acute Assessment and Plan: * thought to be secondary to obstruction on his one good kidney * renal ultrasound demonstrates small right kidney and large left kidney with moderate hydro in the left kidney * randolph catheter placement did not help much but placement of left ureteral stent did * creatinine slowly improving - unclear on baseline but creatinine was 1.39mg/dl in 2019 * diuretics on hold currently * however, depending on imaging/respiratory status, may need to resume diuretics (2) CAD (coronary artery disease): Code(s): I25.10 - Atherosclerotic heart disease of [place] coronary artery without angina pectoris Status: Acute Assessment and Plan: * no further chest pain at this time * Cardiology following (3) H/O: HTN (hypertension): Code(s): Z86.79 - Personal history of other diseases of the circulatory system Status: Chronic Assessment and Plan: * BP doing better by recent check * follow trend of hemodynamics (4) Normocytic anemia: Code(s): D64.9 - Anemia, unspecified Status: Acute Assessment and Plan: * H/H low * partly related to MARY/ARF * empirically on Epogen (5) Diabetes mellitus: Qualifiers: Diabetes mellitus complication status: without complication Diabetes mellitus intermediate card tender insulin use: with long-term use Diabetes mellitus type: type 2 Qualified Code(s): E11.9 - Type 2 diabetes mellitus without complications; Z79.4 - senior care (current) use of insulin Code(s): E11.9 - Type 2 diabetes mellitus without complications Status: Chronic Assessment and Plan: * follow Accu-Cheks * on sliding-scale insulin Will continue to follow. Subjective Date/time seen: 01/25/21 12:10 Seems to be doing reasonably well at the time of my visit; continues to have good urine output with slow improvement in creatinine noted; no apparent distress voiced; no issues or events overnight or earlier this AM. Exam Narrative: Exam Narrative: General: WD/WN male in NAD Heart: normal S1 and S2; no rub Lungs: clear to auscultation anteriorly Abdomen: soft, nontender, nondistended, positive bowel sounds Extremities: no cyanosis or clubbing; 1+ edema Skin: no rash or nodules Objective Data Vital Signs Vital Signs: Vital Signs Temp Pulse Resp BP Pulse Ox 01/25/21 12:00 36.1 C L 65 18 131/53 L 97 01/25/21 10:00 61 01/25/21 09:43 94 01/25/21 08:52 99 01/25/21 08:25 75 18 01/25/21 08:15 73 18 01/25/21 08:00 36.2 C L 82 22 H 148/59 H 94 01/25/21 06:00 60 01/25/21 04:00 36.6 C 65 20 118/40 L 96 01/25/21 02:41 65 18 01/25/21 02:00 66 01/25/21 00:00 65 01/24/21 23:48 36.6 C 65 20 153/57 H 96 01/24/21 22:00 64 01/24/21 20:36 81 01/24/21 20:30 66 18 01/24/21 20:24 91 01/24/21 20:23 68 18 01/24/21 20:00 36.6 C 68 20 148/52 H 96 Intake/Output Intake/Output: Intake & Output 01/22/21 01/23/21 01/24/21 01/25/21
[2021-01-25] MEDS: INSULIN ASPART (*BKC) 100 UNITS/ML SUB-Q ×3 (12:17→20:23)
[2021-01-25] MEDS: POTASSIUM CHLORIDE 20 MEQ TABLET PO (12:17)
[2021-01-25 12:26] LABS: Glucose Point of Care 158 (65-105)
[2021-01-25 12:26] LABS: Glucose Point of Care 263 (65-105)
--- NOTE | 2021-01-25 13:21 | P.PNIM_ITS ---
Progress Note: A&P Assessment and Plan (1) Pre-syncope: Code(s): R55 - Syncope and collapse Status: Acute Assessment and Plan: Patient had episode where he was feeling weak and fatigued possibly pre- syncopal. Symptoms better after he slept. Could have been tired from therapy. EKG performed showing improvement in the R wave progressing but T wave changes in the anterior leads. Trop still trending down. Could be related to low normal BP as well as low hemoglobin. Will continue with the physical therapy and exercise. (2) Non-ST elevation [place] (NSTEMI): Code(s): I21.4 - Non-ST elevation (NSTEMI) myocardial infarction Status: Acute Assessment and Plan: Patient presents with complaints of chest pain and shortness of breath with exertion. Troponin peaked at 0.33. EKG 01/17 showing delayed transition and borderline ST T wave changes in the anterior lateral and high lateral leads. Repeat EKG later on the same day showing new left bundle branch block. Echo showing EF of 55-60% with grade 1 diastolic dysfunction and hypokinetic apical septum and apical cap. Repeat EKG as above Holding off on cardiac catheterization (if possible) given his new renal insufficiency. His CP has resolved and Trop continues to trend down. Suspect a component of the CP maybe related to anxiety. Plan for medical management until LHC can be performed safely. CXR reviewed from yesterday showing CMG, mild pulm edema and bibasilar airspace disease (also possible left lung nodule - CT CHest pending). Continue aspirin, Plavix, Lipitor, Lopressor and Imdur. Appreciate Cardiology input. Heparin drip stopped 01/22 Patient is chest pain-free at present time. (3) Sinus pause: Code(s): I45.5 - Other specified heart block Status: Acute Assessment and Plan: Almost 5 sec cardiac pause on the morning of 01/20; possibly artifact. TSH normal. He is on Metoprolol. No apparent symptoms with this. No recurrence by tele. Continue tele. Monitor closely (4) Acute kidney failure: Qualifiers: Acute renal failure type: unspecified Qualified Code(s): N17.9 - Acute kidney failure, unspecified Code(s): N17.9 - Acute kidney failure, unspecified Status: Acute Assessment and Plan: Creatinine 9.2 on admission. Patient states that he does not have underlying kidney disease. Last lab work here in July 2017 showing creatinine 1.1. Suspect his renal failure is either subacute or chronic given that he has tolerated this change well. He was on Lasix on admission. He did have a major fall causing bruising of his back around Xmas. IV fluids started on admission. Renal ultrasound showing normal parenchymal echogenicity and moderate left h ydronephrosis. Bladder appears normal. UA is negative for protein and blood. Patient is on Flomax. Romero catheter placed. FENa 6.2% to suggest renal (infiltrative?) or possibly post-renal. Left ureteral stent placed 01/19. Lasix IV x1 given and IV fluids stopped 01/21. Patient's creatinine better and stable Monitor urine output and renal function. Appreciate Nephrology input. (5) Acute diastolic CHF (congestive heart failure): Code(s): I50.31 - Acute diastolic (congestive) heart failure Status: Acute Assessment and Plan: Echo showing EF 55-60% and Grade I diastolic dysfunction. CXR 01/22 showing CMG with mild pulmonary edema. Mild CHF exacerbation. Treated with IV Lasix and IV fluids stopped 01/21. Remains on room air since 01/21. Will increase activity (6) Abnormal chest xray: Code(s): R93.89 - Abnormal findings on diagnostic imaging of other s
--- NOTE | 2021-01-25 13:43 | PM.PNCARD ---
Progress Note: A&P Assessment and Plan (1) Non-ST elevation [place] (NSTEMI): Code(s): I21.4 - Non-ST elevation (NSTEMI) myocardial infarction Status: Acute Assessment and Plan: Patient has a clinical scenario consistent with possible acute coronary syndrome. He does have a history of coronary disease and coronary bypass grafting on 2 separate occasions. At this point given his severe renal insufficiency, he will be treated medically for now. Risk stratify with a Lexiscan when more medically stable. PT and in agreement with plan of care. Avoid [facility] given renal failure and clinical stability, trop declined (elevated 2nd ARF less likely ACS but cannot exclude underlying CAD). Cont ASA and Plavix. Declining Trop, no new EKG changes. Plan for outpatient workup provided pt remains stable. Overall, most likely explanation is Trop elevation due to severe ARF Continue conservative management at this time. (2) Acute kidney failure: Qualifiers: Acute renal failure type: unspecified Qualified Code(s): N17.9 - Acute kidney failure, unspecified Code(s): N17.9 - Acute kidney failure, unspecified Status: Acute Assessment and Plan: Slowly improving but not at baseline. Continue to hold losartan and potassium. Renal function slowly improving. Nephrology following Renal function improving but slowly at creatinine 2.5. (3) CAD (coronary artery disease): Code(s): I25.10 - Atherosclerotic heart disease of [place] coronary artery without angina pectoris Status: Acute Assessment and Plan: As detailed above, continue dual antiplatelet therapy, monitor for bleeding. Continue nitrates, statin, beta-kurtis, DVT prophylaxis. Probably no need for Lovaza at this time. Continue atorvastatin. (4) Acute diastolic CHF (congestive heart failure): Code(s): I50.31 - Acute diastolic (congestive) heart failure Status: Acute Assessment and Plan: Clinically fairly euvolemic. P.r.n. diuresis. (5) Hypertension associated with diabetes: Code(s): E11.59 - Type 2 diabetes mellitus with other circulatory complications; I15.2 - Hypertension secondary to endocrine disorders Status: Acute Assessment and Plan: Reasonably controlled. (6) History of aortic valve replacement: Code(s): Z95.2 - Presence of prosthetic heart valve Status: Acute Assessment and Plan: Functioning normally. Prophylactic antibiotics (7) LBBB (left bundle branch block): Code(s): I44.7 - Left bundle-branch block, unspecified Status: Acute Assessment and Plan: Had a new left bundle branch block initially resolved on subsequent EKG. Repeat EKG today. (8) Anemia: Code(s): D64.9 - Anemia, unspecified Status: Acute Assessment and Plan: H&H slight decline but overall fairly stable. Continue to monitor for signs of bleeding. Off heparin, continue ASA and Plavix. and s/p ureteral stent, has a Romero. Subjective Date/time seen: Date of service: 01/25/21 13:43 Interval history: Interval history: 80yo male with hx of CAD, h/o CABG and redo, ACS w/ peak trop 0.33, AVR and DM here for chest pain possibly ACS, diast CHF ARF 2nd hydronephrosis. S/P ureteral stent 01/19/2021 with improvement of renal fxn. Echo EF 55-60%, mild LVH, diast dysfxn, bioprosthetic AV OK, apical septum and apex hypokinetic. He had a catheterization in May of 2010 which showed severe aortic stenosis with occlusion of the LAD and RCA with a patent FIORE to the LAD and vein graft to the RCA. In July of 2010 he had a re
[2021-01-25] MEDS: POTASSIUM CHLORIDE 20 MEQ PACKET (FOR LIQUID) PO (14:45)
[2021-01-25 17:15] LABS: Glucose Point of Care 231 (65-105)
[2021-01-25 19:57] LABS: Glucose Point of Care 277 (65-105)
[2021-01-25] MEDS: ATORVASTATIN 40 MG TABLET PO (20:23)
--- NOTE | 2021-01-25 23:07 | PC.NURSE ---
Pt has been dribbling clear light yellow urine since randolph was pulled today at 1515. At 2230 he called out. When I got in there his urine was bright red with a 6cm clot. He stated he was having lower ab pain to. I called Dr. Antonio to notify him. He said if he had a bladder scan above 300 to call back and continue to monitor
[2021-01-26] VITALS (17 sets, daily range): BP systolic 120–169; BP diastolic 55–62; PULSE 55–88; RESP 16–20; TEMP 36.1–36.6; O2SAT 94–98
[2021-01-26 05:14] LABS: Anion Gap 6 mmol/L (8-16); Blood Urea Nitrogen 25 mg/dL (9-20); Carbon Dioxide 27 mmol/L (22-30); Chloride 103 mmol/L (98-107); Estimated CRCL calculation 22 ml/min; Estimated Glomerular Filt Rate 26; Glucose 182 mg/dL (75-110); Potassium 3.6 mmol/L (3.4-5.0); Sodium 136 mmol/L (137-145)
[2021-01-26] MEDS: ONDANSETRON INJ 4 MG/2 ML VIAL IV PUSH ×3 (06:12→14:08)
[2021-01-26] MEDS: LEVOTHYROXINE SODIUM 50 MCG TABLET PO (06:42)
--- NOTE | 2021-01-26 06:56 | WPDUROPN2 ---
Progress Note: A&P Assessment and Plan (1) Gross hematuria: Code(s): R31.0 - Gross hematuria Status: Acute (2) Hydronephrosis, left: Code(s): N13.30 - Unspecified hydronephrosis Status: Acute Assessment and Plan: Transient hematuria following catheter removal yesterday - now resolved / voiding well. Discussed indwelling stent, and need for removal/ureteroscopy, with patient this morning. Subjective Subjective Date/Time Seen: 01/26/21 06:57 Transient hematuria following catheter removal yesterday - has now cleared. Review of Systems Cardiovascular: Cardiovascular: Denies chest pain, Denies lightheadedness, Denies palpitations and Denies dyspnea Respiratory: Respiratory: Denies dyspnea Gastrointestinal: Gastrointestinal: Denies diarrhea, Denies nausea and Denies vomiting Genitourinary: Genitourinary: Denies hematuria and Denies dysuria Endocrine: Endocrine: Denies palpitations Exam Const: General: no acute distress Resp: Effort & Inspection: normal respiratory effort GI: Inspection: non-distended GI Palp: No abdominal tenderness and No Guarding due to palpation present (GI) Auscultation: normal bowel sounds Objective Data Vital Signs Vital Signs: Vital Signs - 24 hr 01/25/21 08:00 01/25/21 08:15 01/25/21 08:25 Temperature 97.1 F L Pulse Rate 82 73 75 Respiratory Rate 22 H 18 18 Blood Pressure 148/59 H Pulse Oximetry 94 01/25/21 08:52 01/25/21 09:43 01/25/21 10:00 Temperature Pulse Rate 99 61 Respiratory Rate Blood Pressure Pulse Oximetry 94 01/25/21 12:00 01/25/21 14:00 01/25/21 14:15 Temperature 97 F L Pulse Rate 65 60 75 Respiratory Rate 18 18 Blood Pressure 131/53 L Pulse Oximetry 97 01/25/21 14:25 01/25/21 16:00 01/25/21 18:00 Temperature 97.1 F L Pulse Rate 72 67 78 Respiratory Rate 18 22 H Blood Pressure 151/64 H Pulse Oximetry 98 01/25/21 19:38 01/25/21 20:00 01/25/21 20:23 Temperature 97.5 F L Pulse Rate 71 65 73 Respiratory Rate 18 Blood Pressure 144/49 H Pulse Oximetry 97 01/25/21 20:44 01/25/21 20:53 01/25/21 22:00 Temperature Pulse Rate 73 82 88 Respiratory Rate 20 20 Blood Pressure Pulse Oximetry 95 01/25/21 23:57 01/26/21 00:00 01/26/21 02:00 Temperature 97.2 F L Pulse Rate 88 55 L 62 Respiratory Rate 20 Blood Pressure 137/64 Pulse Oximetry 98 01/26/21 04:00 Temperature 96.9 F L Pulse Rate 60 Respiratory Rate 20 Blood Pressure 150/57 H Pulse Oximetry 94 Intake/Output Intake/Output: Intake & Output 01/23/21 01/24/21 01/25/21 01/26/21 23:59 23:59 23:59 23:59 Intake Total 620 1440 2180 300 Output Total 1725 3350 3500 660 Balance -1105 -1910 -1320 -360 Meds/Results Medications: Active Medications Generic Name Dose Route Start Last Admin Trade Name Freq PRN Reason Stop Dose Admin Acetaminophen 650 mg 01/17/21 20:44 01/21/21 22:02 Acetaminophen 325 Mg Tablet PO 650 mg Q4H PRN Administration Mild Pain (1-3) or Fever Aspirin 81 mg 01/21/21 09:00 01/25/21 08:52 Aspirin 81 Mg Enteric Tablet PO 81 mg DAILY GIOVANY Administration Atorvastatin Calcium 40 mg 01/18/21 21:00 01/25/21 20:23 Atorvastatin 40 Mg Tablet PO 40 mg HS GIOVANY Administration Clopidogrel Bisulfate 75 mg 01/21/21 09:00 01/25/21 08:52 Clopidogrel Bisulfate 75 Mg Tablet PO 75 mg QAM GIOVANY Administration Dextrose 12.5 gm 01/17/21 21:14 Dextrose 50% 25 Gm/50 Ml Syringe IV PUSH PRN PRN Hypoglycemia Protocol Epoetin Parrish-epbx 10,000 units 01/20/21 09:00 01/25/21 08:57 Epoetin Parrish-Epbx 10,000 Units/Ml Vial SUB-Q 10,000 units MOWEFR GIOVANY Administration Fish Oil 1 gm 01/18/21 09:00 01/22/21 08:20 [place] 3 Polyunsat Fatty Acids 1 Gm Cap PO 1 gm DAILY GIOVANY Administration Glucagon 1 mg 01/17/21 21:14 Glucagon For Inj 1 Mg Vial IM PRN PRN Hypoglycemia Protocol Gluco
[2021-01-26 08:18] LABS: Glucose Point of Care 195 (65-105)
[2021-01-26] MEDS: LEVALBUTEROL NEB 1.25 MG/3 ML 0.63 MG INHALATION (09:06)
--- NOTE | 2021-01-26 10:51 | PM.IMPN ---
Progress Note: A&P Assessment and Plan (1) Partial small bowel obstruction: Code(s): K56.600 - Partial intestinal obstruction, unspecified as to cause Status: Acute Assessment and Plan: KUB showing a couple of loops of moderately distended air-filled small bowel, ileus or obstruction. CT A/P showing early or pSBO secondary to parastomal hernia with couple loops of small bowel with transition point occurring as one of the loops exits the hernia. Patient with nausea and dry heaves. Will place NGT to suction. General surgery consult. Repeat xray in the morning. (2) Nausea & vomiting: Code(s): R11.2 - Nausea with vomiting, unspecified Status: Acute Assessment and Plan: As above. (3) Pre-syncope: Code(s): R55 - Syncope and collapse Status: Acute Assessment and Plan: Patient had episode where he was feeling weak and fatigued possibly pre-syncopal. Symptoms better after he slept. Could have been tired from therapy. EKG performed showing improvement in the R wave progressing but T wave changes in the anterior leads. Trop trending down. Could be related to low normal BP as well as low hemoglobin. Will continue with PT/OT (4) Non-ST elevation [place] (NSTEMI): Code(s): I21.4 - Non-ST elevation (NSTEMI) myocardial infarction Status: Acute Assessment and Plan: Patient presents with complaints of chest pain and shortness of breath with exertion. Troponin peaked at 0.33. EKG 01/17 showing delayed transition and borderline ST T wave changes in the anterior lateral and high lateral leads. Repeat EKG later on the same day showing new left bundle branch block. Echo showing EF of 55-60% with grade 1 diastolic dysfunction and hypokinetic apical septum and apical cap. Holding off on cardiac catheterization (if possible) given his new renal insufficiency. His CP has resolved and Trop continues to trend down. Suspect a component of the CP maybe related to anxiety. Plan for medical management until LHC can be performed safely. Chest CT from 01/23 showing small bilateral efusion with evidence of mild pulmonary edema; no left lung nodule. Continue aspirin, Plavix, Lipitor, Lopressor and Imdur. Appreciate Cardiology input. (5) Sinus pause: Code(s): I45.5 - Other specified heart block Status: Acute Assessment and Plan: Almost 5 sec cardiac pause on the morning of 01/20; possibly artifact. TSH normal. He is on Metoprolol. No apparent symptoms with this. No recurrence by tele. Continue tele. Monitor closely (6) Acute kidney failure: Qualifiers: Acute renal failure type: unspecified Qualified Code(s): N17.9 - Acute kidney failure, unspecified Code(s): N17.9 - Acute kidney failure, unspecified Status: Acute Assessment and Plan: Creatinine 9.2 on admission. Patient states that he does not have underlying kidney disease. Last lab work here in July 2017 showing creatinine 1.1. Suspect his renal failure is either subacute or chronic given that he has tolerated this change well. He was on Lasix on admission. He did have a major fall causing bruising of his back around Xmas. IV fluids started on admission. Renal ultrasound showing normal parenchymal echogenicity and moderate left hydronephrosis. Bladder appears normal. UA is negative for protein and blood. Patient is on Flomax. Romero catheter placed. FENa 6.2% to suggest renal (infiltrative?) or possibly post-renal (retroperitoneal fibrosis). SPEP showing evidence of acute inflammation; UPEP showing no abnormalities. Left ureteral stent placed 01/19. Lasix IV x1 given and IV fluids stopped 01/21. Patient's creatinine better at 2.4 and stable Monitor urine output and renal function. Appreciate Nephrology input. (7) Acute diastolic CHF (congestive heart failure): Code(s): I50.31 - Acute diastolic (congestive) heart failure Status: Acute
[2021-01-26 12:25] LABS: Glucose Point of Care 235 (65-105)
[2021-01-26] MEDS: INSULIN DETEMIR 100 UNITS/ML 8 UNITS SUB-Q (12:51)
--- NOTE | 2021-01-26 13:34 | P.PNNP_ITS ---
Progress Note: A&P Assessment and Plan (1) Acute kidney failure: Qualifiers: Acute renal failure type: unspecified Qualified Code(s): N17.9 - Acute kidney failure, unspecified Code(s): N17.9 - Acute kidney failure, unspecified Status: Acute Assessment and Plan: * thought to be secondary to obstruction on his one good kidney * renal ultrasound demonstrates small right kidney and large left kidney with moderate hydro in the left kidney * randolph catheter placement did not help much but placement of left ureteral stent did * creatinine slowly improving - unclear on baseline but creatinine was 1.39mg/dl in 2019 * diuretics on hold currently * however, depending on imaging/respiratory status, may need to resume diuretics (2) Partial small bowel obstruction: Code(s): K56.600 - Partial intestinal obstruction, unspecified as to cause Status: Acute Assessment and Plan: * as noted by imaging done earlier today * NG tube in place * Surgery consulted for further evaluation (3) CAD (coronary artery disease): Code(s): I25.10 - Atherosclerotic heart disease of [place] coronary artery without angina pectoris Status: Acute Assessment and Plan: * no further chest pain at this time * Cardiology following (4) H/O: HTN (hypertension): Code(s): Z86.79 - Personal history of other diseases of the circulatory system Status: Chronic Assessment and Plan: * BP running higher now but suspect pain issues playing a role * follow trend of hemodynamics (5) Normocytic anemia: Code(s): D64.9 - Anemia, unspecified Status: Acute Assessment and Plan: * H/H low * partly related to MARY/ARF * empirically on Epogen (6) Diabetes mellitus: Qualifiers: Diabetes mellitus complication status: without complication Diabetes mellitus retirement insulin use: with food service use Diabetes mellitus type: type 2 Qualified Code(s): E11.9 - Type 2 diabetes mellitus without complications; Z79.4 - long-term (current) use of insulin Code(s): E11.9 - Type 2 diabetes mellitus without complications Status: Chronic Assessment and Plan: * follow Accu-Cheks * on sliding-scale insulin Will continue to follow. Subjective Date/time seen: 01/26/21 13:34 Events noted earlier today -- not feeling well with ongoing issues with nausea and vomiting; recent abdominal imaging concernig for possible small bowel obstruction; NG tube placed for decompression and General Surgery consulted for further evaluation. Exam Narrative: Exam Narrative: General: WD/WN male in mild distress; NG tube in place Heart: normal S1 and S2; no rub Lungs: clear to auscultation anteriorly Abdomen: mild distension with TTP around ostomy; decreased bowel sounds Extremities: no cyanosis or clubbing; 1+ edema Skin: warm and dry Objective Data Vital Signs Vital Signs: Vital Signs Temp Pulse Resp BP Pulse Ox 01/26/21 12:00 36.3 C L 64 18 169/60 H 97 01/26/21 10:00 56 L 01/26/21 09:18 82 20 01/26/21 09:07 62 20 96 01/26/21 08:00 36.4 C 68 16 152/60 H 96 01/26/21 06:00 62 01/26/21 04:00 36.1 C L 60 20 150/57 H 94 01/26/21 02:00 62 01/26/21 00:00 55 L 01/25/21 23:57 36.2 C L 88 20 137/64 98 01/25/21 22:00 88 01/25/21 20:53 82 20
--- NOTE | 2021-01-26 13:34 | PM.PNNEP ---
Progress Note: A&P Assessment and Plan (1) Acute kidney failure: Qualifiers: Acute renal failure type: unspecified Qualified Code(s): N17.9 - Acute kidney failure, unspecified Code(s): N17.9 - Acute kidney failure, unspecified Status: Acute Assessment and Plan: thought to be secondary to obstruction on his one good kidney renal ultrasound demonstrates small right kidney and large left kidney with moderate hydro in the left kidney randolph catheter placement did not help much but placement of left ureteral stent did creatinine slowly improving - unclear on baseline but creatinine was 1.39mg/dl in 2019 diuretics on hold currently however, depending on imaging/respiratory status, may need to resume diuretics (2) Partial small bowel obstruction: Code(s): K56.600 - Partial intestinal obstruction, unspecified as to cause Status: Acute Assessment and Plan: as noted by imaging done earlier today NG tube in place Surgery consulted for further evaluation (3) CAD (coronary artery disease): Code(s): I25.10 - Atherosclerotic heart disease of [place] coronary artery without angina pectoris Status: Acute Assessment and Plan: no further chest pain at this time Cardiology following (4) H/O: HTN (hypertension): Code(s): Z86.79 - Personal history of other diseases of the circulatory system Status: Chronic Assessment and Plan: BP running higher now but suspect pain issues playing a role follow trend of hemodynamics (5) Normocytic anemia: Code(s): D64.9 - Anemia, unspecified Status: Acute Assessment and Plan: H/H low partly related to MARY/ARF empirically on Epogen (6) Diabetes mellitus: Qualifiers: Diabetes mellitus complication status: without complication 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 Subjective Date/time seen: 01/26/21 13:34 Events noted earlier today -- not feeling well with ongoing issues with nausea and vomiting; recent abdominal imaging concernig for possible small bowel obstruction; NG tube placed for decompression and General Surgery consulted for further evaluation. Exam Narrative: Exam Narrative: General: WD/WN male in mild distress; NG tube in place Heart: normal S1 and S2; no rub Lungs: clear to auscultation anteriorly Abdomen: mild distension with TTP around ostomy; decreased bowel sounds Extremities: no cyanosis or clubbing; 1+ edema Skin: warm and dry Objective Data Vital Signs Vital Signs: Vital Signs Temp Pulse Resp BP Pulse Ox 01/26/21 12:00 36.3 C L 64 18 169/60 H 97 01/26/21 10:00 56 L 01/26/21 09:18 82 20 01/26/21 09:07 62 20 96 01/26/21 08:00 36.4 C 68 16 152/60 H 96 01/26/21 06:00 62 01/26/21 04:00 36.1 C L 60 20 150/57 H 94 01/26/21 02:00 62 01/26/21 00:00 55 L 01/25/21 23:57 36.2 C L 88 20 137/64 98 01/25/21 22:00 88 01/25/21 20:53 82 20 01/25/21 20:44 73 20 95 01/25/21 20:23 73 01/25/21 20:00 65 01/25/21 19:38 36.4 C L 71 18 144/49 H 97 Intake/Output Intake/Output: Intake & Output 01/23/21 01/24/21 01/25/21 01/26/21 23:59 23:59 23:59 23:59 Intake Total 620 1440 2180 300 Output Total 1725 3350 3500 1210 Balance -1105 -9010 -1320 -910 Meds/Results Medications: Active Medications Generic Name Dose Route Start Last Admin Trade Name Jeremyq PRN Reason Stop Dose Admin Acetaminophen 650 mg 01/17/21 20:44 01/21/21 22:02 Acetaminophen 325 Mg Tablet PO 650 mg Q4H PRN
--- NOTE | 2021-01-26 13:42 | PCOTNOTE ---
RN stated to hold treatment this date due to low BP. Will continue to attempt OT at a later date.
--- NOTE | 2021-01-26 14:22 | PCRCNOTE ---
PT. REFUSED NEB TX; DR. BAL AND PT.'S R.N. NOTIFIED OF THE REFUSAL.
--- NOTE | 2021-01-26 15:09 | PM.CNGS ---
Assessment and Plan Assessment and plan (1) Partial small bowel obstruction: Code(s): K56.600 - Partial intestinal obstruction, unspecified as to cause Status: Acute Assessment and Plan: Patient developed nausea and vomiting today. Found to have evidence of a partial or early SBO secondary to a parastomal hernia. NG tube has been placed. Imaging was reviewed and discussed with the patient and his in detail. On my exam, I was able to fully reduce the parastomal hernia and his abdominal pain resolved. He does still have some expected soreness around the colostomy. If this remains soft and reducible, then we will be able to avoid urgent surgery. Will try an NG clamping trial today and if the patient tolerates this, then the NG tube can be removed and he can be restarted on clear liquids. Abdominal x-ray ordered for tomorrow. I have asked the wound care nurses to see the patient and fit him for an abdominal binder around the colostomy to help try and prevent this in the future. I talked to the patient about splinting the hernia when coughing, etc. If this resolves and he is able to tolerate a diet, then we will plan to have the patient follow-up with Dr. Cortez to discuss options for hernia repair once medically stable. Thank you for allowing us to see the patient in consultation and we will continue to follow along. (2) Parastomal hernia: Code(s): K43.5 - Parastomal hernia without obstruction or gangrene Status: Acute Assessment and Plan: Chronic parastomal hernia, now soft and reducible. See plan above. (3) Non-ST elevation [place] (NSTEMI): Code(s): I21.4 - Non-ST elevation (NSTEMI) myocardial infarction Status: Acute Assessment and Plan: Increases risks for surgery. Cardiology following. (4) Acute diastolic CHF (congestive heart failure): Code(s): I50.31 - Acute diastolic (congestive) heart failure Status: Acute Assessment and Plan: Management per Cardiology/Hospitalist. (5) Acute kidney failure: Qualifiers: Acute renal failure type: unspecified Qualified Code(s): N17.9 - Acute kidney failure, unspecified Code(s): N17.9 - Acute kidney failure, unspecified Status: Acute (6) CAD (coronary artery disease): Code(s): I25.10 - Atherosclerotic heart disease of [place] coronary artery without angina pectoris Status: Acute Assessment and Plan: Increases risks for surgery. Currently on dual anti-platelet therapy. Management per Cardiology/Hospitalist. 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 Cardiology following. (8) Diabetes mellitus: Qualifiers: Diabetes mellitus type: type 2 Diabetes mellitus long term care pharmacist insulin use: with long term care pharmacist use Diabetes mellitus complication status: without complication Qualified Code(s): E11.9 - Type 2 diabetes mellitus without complications; Z79.4 - jail (current) use of insulin Code(s): E11.9 - Type 2 diabetes mellitus without complications Status: Chronic (9) H/O: HTN (hypertension): Code(s): Z86.79 - Personal history of other diseases of the circulatory system Status: Chronic (10) Hydronephrosis, left: Code(s): N13.30 - Unspecified hydronephrosis Status: Acute Assessment and Plan: S/p cystoscopy with left ureteral stent placement. No longer with randolph catheter. Urology following. Additional Plan I discussed the patient's case and plan of care with Dr. Cortez. History of Present Illness Consult details Consult date: 01/26/21 Reason for consult: hernia (SBO secondary to parastomal hernia) Requesting physician: Wallace Mccoy MD Narrative: This is an 80-year-old male with a his
[2021-01-26] MEDS: INSULIN ASPART (*BKC) 100 UNITS/ML SUB-Q ×2 (17:20→20:38)
[2021-01-26] MEDS: SODIUM CHLORIDE 0.9% IV 1,000 ML 70 ML IV CONT (17:20)
[2021-01-26 18:15] LABS: Glucose Point of Care 218 (65-105)
[2021-01-26 20:38] LABS: Glucose Point of Care 244 (65-105)
[2021-01-26] MEDS: ATORVASTATIN 40 MG TABLET PO (20:38)
[2021-01-26] MEDS: METOPROLOL TARTRATE 25 MG TABLET 75 MG PO (20:38)
[2021-01-27] VITALS (16 sets, daily range): BP systolic 102–159; BP diastolic 46–69; PULSE 52–138; RESP 16–20; TEMP 36.2–36.5; O2SAT 95–98
[2021-01-27 04:56] LABS: Basophils Absolute Auto 0.1 K/mm3 (0.0-0.1); Basophils Percent Auto 0.5 % (0.2-1.2); Eosinophils Absolute Auto 0.4 K/mm3 (0-0.3); Eosinophils Percent Auto 3.7 % (0-4.4); Hematocrit 28.5 % (42.0-52.0); Hemoglobin 9.2 g/dL (14.0-18.0); Immature Granulocyte Absolute 0.18 K/mm3 (0.00-0.031); Immature Granulocyte Percent A 1.5 % (0-0.5); Lymphocytes Absolute Auto 1.85 K/mm3 (0.9-3.2); Lymphocytes Percent Auto 15.5 % (18.3-44.2); Mean Corpuscular HGB Conc 32.3 g/dl (32-36); Mean Corpuscular Hemoglobin 31.8 pg (26-34); Mean Corpuscular Volume 98.6 fl (80-100); Mean Platelet Volume 9.4 fl (7.4-10.4); Monocytes Absolute Auto 1.5 K/mm3 (0.1-0.6); Monocytes Percent Auto 12.6 % (2.6-8.5); Neutrophils Absolute Auto 7.9 K/mm3 (1.3-6.7); Neutrophils Percent Auto 66.2 % (45.5-73.1); Platelet Count Result 360 k/mm3 (150-375); Red Blood Count 2.89 M/mm3 (4.6-6.20); Red Cell Distribution Width 13.6 % (11.5-14.5)
[2021-01-27 05:16] LABS: Alanine Aminotransferase 15 U/L (4-50); Albumin Level 3.5 g/dL (3.5-5.1); Alkaline Phosphatase 68 U/L (38-126); Anion Gap 7 mmol/L (8-16); Aspartate Amino Transferase 22 U/L (17-59); Bilirubin,Total 0.8 mg/dL (0.2-1.3); Blood Urea Nitrogen 23 mg/dL (9-20); Calcium 8.9 mg/dL (8.4-10.2); Carbon Dioxide 26 mmol/L (22-30); Chloride 106 mmol/L (98-107); Estimated CRCL calculation 24 ml/min; Estimated Glomerular Filt Rate 29; Glucose 177 mg/dL (75-110); Magnesium 1.5 mg/dL (1.6-2.3); Sodium 139 mmol/L (137-145)
[2021-01-27 05:38] LABS: Potassium 3.7 mmol/L (3.4-5.0)
[2021-01-27] MEDS: LEVOTHYROXINE SODIUM 50 MCG TABLET PO (06:02)
[2021-01-27] MEDS: SODIUM CHLORIDE 0.9% IV 1,000 ML 70 ML IV CONT (06:05)
[2021-01-27 06:12] LABS: Glucose Point of Care 166 (65-105)
[2021-01-27 08:18] LABS: Glucose Point of Care 155 (65-105)
[2021-01-27] MEDS: MAGNESIUM SULF 2 GM/WATER 50ML 2 GM/50 ML BAG IVPB (08:20)
[2021-01-27] MEDS: INSULIN DETEMIR 100 UNITS/ML 8 UNITS SUB-Q (08:20)
[2021-01-27] MEDS: EPOETIN ALFA-EPBX 10,000 UNITS/ML VIAL 10000 UNITS SUB-Q (08:20)
[2021-01-27] MEDS: METOPROLOL TARTRATE 25 MG TABLET 75 MG PO ×2 (08:21→20:22)
[2021-01-27] MEDS: ASPIRIN 81 MG ENTERIC TABLET PO (08:21)
[2021-01-27] MEDS: VITAMIN B COMPLEX CAPSULE 1 CAP PO (08:21)
[2021-01-27] MEDS: ISOSORBIDE MONONITRATE 60 MG TAB.ER.24H PO (08:21)
[2021-01-27] MEDS: CHOLECALCIFEROL 1,000 UNITS TABLET 2000 UNITS PO (08:21)
[2021-01-27] MEDS: MULTIVIT W/ IRON, MINERALS 15 ML LIQUID (*BKC) PO (08:21)
[2021-01-27] MEDS: TAMSULOSIN HCL 0.4 MG CAPSULE PO (08:21)
[2021-01-27] MEDS: CLOPIDOGREL BISULFATE 75 MG TABLET PO (08:21)
--- NOTE | 2021-01-27 09:05 | PM.PNCARD ---
Progress Note: A&P Additional Plan 80-year-old man with: Multivessel coronary disease with 2 previous bypass operations and also aortic valve replacement. Patient presented with a variety of problems most significant was severe acute renal failure due to hydronephrosis. This is been resolved and creatinine while not at baseline is dramatically improved. Patient in that setting had some evidence of acute coronary syndrome but was clearly not a candidate for angiography. He is now asymptomatic. Plan is to treat him medically as we have set in our previous notes. Every effort should be made not to expose his kidneys to contrast at this time. Patient also has a peristomal hernia that was causing significant abdominal pain yesterday. agricultural consultant was able to manually reduce this and resolved his symptoms. He is now resting comfortably. Ongoing medical therapy for his coronary disease is recommended. No other specific recommendations today. French Wilson MD [facility] Subjective Date/time seen: Date of service: 01/27/21 09:05 Interval history: Interval history: 80yo male with hx of CAD, h/o CABG and redo, ACS w/ peak trop 0.33, AVR and DM here for chest pain possibly ACS, diast CHF ARF 2nd hydronephrosis. S/P ureteral stent 01/19/2021 with improvement of renal fxn. Echo EF 55-60%, mild LVH, diast dysfxn, bioprosthetic AV OK, apical septum and apex hypokinetic. He had a catheterization in May of 2010 which showed severe aortic stenosis with occlusion of the LAD and RCA with a patent FIORE to the LAD and vein graft to the RCA. In July of 2010 he had a redo bypass with the SVG to OM and a bioprosthetic pericardial tissue valve in the aortic position. 01/27/2021: Patient resting comfortably denies any cardiovascular symptoms. Above surgical consult noted. Patient has a peristomal hernia which after reduction yesterday resolved his abdominal pain. This may require surgical treatment in the future. Exam Narrative: Exam Narrative: Lying supine in bed no apparent distress pleasant cooperative awake and alert. Const: General: comfortable, no acute distress and anxious; No confusion Orientation/consciousness: No confusion Other: Sleeping on my arrival HENMT: General nose exam: Normal nares present and no epistaxis Mouth: Yes moist mucous membranes Eyes: Sclera: sclerae normal EOM: EOMs intact bilaterally Neck: Neck: supple and no JVD Chest: Other: No reproducible chest wall pain to palpation Resp: Effort & Inspection: normal respiratory effort Auscultation: rales (Rales in left base) Cardio: Rate: regular rate Rhythm: regular rhythm Heart sounds: Murmur heart sound present (2/6 LANIE upper sternal borders) Other: Good pedal pulses GI: Inspection: non-distended Urinary Catheter: Urinary Catheter: patent and draining Skin: General skin exam: normal color and no rashes or lesions noted Neuro: General: No confusion Cranial nerves: Yes Normal hearing present Cognition (Neuro): normal cognition Speech: normal speech Other: A little fuzzy on his personal medical history. Sitter at bedside. Extrem: General: normal to inspection, no edema and no pedal edema Psych: Mental Status: mental status grossly normal Affect: normal affect Objective Data Vital Signs Vital Signs: Vital Signs - 24 hr 01/26/21 09:07 01/26/21 09:18 01/26/21 10:00 Temperature Pulse Rate 62 82 56 L Respiratory Rate 20 20 Blood Pressure Pulse Oximetry 96 01/26/21 12:00 01/26/21 14:00 01/26/21 16:00 Temperature 36.3 C L 36.3 C L Pulse Rate 64 76 74 Respiratory Rate 18 16 Blood Pressure 169/60 H 163/55 H Pulse Oximetry 97 97 01/26/21 18:00 01/26/21 18:36 01/26/21 20:00 Temperature 36.4 C L Pulse Rate 88 86 86 Respiratory Rate 18 18 Blood Pressure 120/62 Pulse Oximetry 98 98 01/26/21 20:38 01/26/21 22:00 01/26/21 23:40 Temperature 36.6 C Pulse Rate 73 63 62 Respiratory Rate 16 Blood Pressure
--- NOTE | 2021-01-27 09:28 | PM.PNGS ---
Progress Note: A&P Assessment and Plan (1) Parastomal hernia: Code(s): K43.5 - Parastomal hernia without obstruction or gangrene Status: Acute Assessment and Plan: reduced at bedside yesterday, exam benign, will defer repair to poss elective procedure given comorbid conditions (2) Partial small bowel obstruction: Code(s): K56.600 - Partial intestinal obstruction, unspecified as to cause Status: Acute Assessment and Plan: resolved, NG out, megan clears, slowly ADAT (3) Acute diastolic CHF (congestive heart failure): Code(s): I50.31 - Acute diastolic (congestive) heart failure Status: Acute Assessment and Plan: mgmt per cadiology (4) Acute kidney failure: Qualifiers: Acute renal failure type: unspecified Qualified Code(s): N17.9 - Acute kidney failure, unspecified Code(s): N17.9 - Acute kidney failure, unspecified Status: Acute Assessment and Plan: improved, cont mgmt per nephrolgoy Subjective Subjective Date/Time Seen: 01/27/21 09:28 feels much better, megan clears, +ostomy fxn Review of Systems Review of Systems: All systems reviewed & are unremarkable except as noted in HPI and below Exam Const: General: cooperative, comfortable and no acute distress Orientation/consciousness: patient oriented x3 Resp: Auscultation: clear to auscultation bilaterally Cardio: Rate: regular rate Rhythm: regular rhythm GI: Inspection: normal to inspection, distended and incision GI Palp: Yes Soft to palpation, No Tenderness to palpation present (GI), No Guarding due to palpation present (GI) and No Rigid due to palpation Other: soft, sl dist, mild TTP at ostomy site, +parastomal hernia easily reducible, +ostomy fxn Objective Data Vital Signs Vital Signs: Vital Signs - 24 hr 01/26/21 10:00 01/26/21 12:00 01/26/21 14:00 Temperature 36.3 C L Pulse Rate 56 L 64 76 Respiratory Rate 18 Blood Pressure 169/60 H Pulse Oximetry 97 01/26/21 16:00 01/26/21 18:00 01/26/21 18:36 Temperature 36.3 C L 36.4 C L Pulse Rate 74 88 86 Respiratory Rate 16 18 Blood Pressure 163/55 H 120/62 Pulse Oximetry 97 98 01/26/21 20:00 02/25/21 20:38 01/26/21 22:00 Temperature Pulse Rate 86 73 63 Respiratory Rate 18 Blood Pressure Pulse Oximetry 98 01/26/21 23:40 01/27/21 00:00 01/27/21 02:00 Temperature 36.6 C Pulse Rate 62 62 59 L Respiratory Rate 16 16 Blood Pressure 145/60 H Pulse Oximetry 96 96 01/27/21 03:29 01/27/21 03:34 01/27/21 04:00 Temperature 36.4 C Pulse Rate 55 L 55 L 77 Respiratory Rate 16 16 Blood Pressure 113/69 Pulse Oximetry 95 95 01/27/21 06:00 01/27/21 08:00 01/27/21 08:21 Temperature 36.4 C Pulse Rate 66 57 L 138 H Respiratory Rate 20 Blood Pressure 159/50 H Pulse Oximetry 98 Intake/Output Intake/Output: Intake & Output 01/24/21 01/25/21 01/26/21 01/27/21 23:59 23:59 23:59 23:59 Intake Total 1440 2180 600 910 Output Total 3350 3500 1570 220 Balance -1910 -1320 -970 690 Meds/Results Medications: Active Medications Generic Name Dose Route Start Last Admin Trade Name Freq PRN Reason Stop Dose Admin Acetaminophen 650 mg 01/17/21 20:44 01/21/21 22:02 Acetaminophen 325 Mg Tablet PO 650 mg Q4H PRN Administration Mild Pain (1-3) or Fever Aspirin 81 mg 01/21/21 09:00 01/27/21 08:21 Aspirin 81 Mg Enteric Tablet PO 81 mg DAILY GIOVANY Administration Atorvastatin Calcium 40 mg 01/18/21 21:00 01/26/21 20:38 Atorvastatin 40 Mg Tablet PO 40 mg HS GIOVANY Administration Clopidogrel Bisulfate 75 mg 01/21/21 09:00 01/27/21 08:21 Clopidogrel Bisulfate 75 Mg Tablet PO 75 mg QAM GIOVANY Administration Dextrose 12.5 gm 01/17/21 21:14 Dextrose 50% 25 Gm/50 Ml Syringe IV PUSH PRN PRN Hypoglycemia Protocol Epoetin Parrish-epbx 10,000 units 01/20/21 09:00 01/27/21 08:20 Epoetin Parrish-Epbx 10,000 Units/Ml V
--- NOTE | 2021-01-27 10:31 | PM.IMPN ---
Progress Note: A&P Assessment and Plan (1) Partial small bowel obstruction: Code(s): K56.600 - Partial intestinal obstruction, unspecified as to cause Status: Acute Assessment and Plan: Patient with decreased stool output and n/v with dry heaves. KUB 01/26 showing a couple of loops of moderately distended air-filled small bowel, ileus or obstruction. CT A/P showing early or pSBO secondary to parastomal hernia with couple loops of small bowel with transition point occurring as one of the loops exits the hernia. NGT to suction. General surgery consulted. Condition improved. N/V resolved. Hernia reduced at bedside. NGT out now. Clear liquid diet started but not eating much. Encouraged ensure intake. Increase activity. (2) Nausea & vomiting: Code(s): R11.2 - Nausea with vomiting, unspecified Status: Acute Assessment and Plan: As above. (3) Pre-syncope: Code(s): R55 - Syncope and collapse Status: Acute Assessment and Plan: Patient had episode where he was feeling weak and fatigued possibly pre-syncopal. Symptoms better after he slept. Could have been tired from therapy. EKG performed showing improvement in the R wave progressing but T wave changes in the anterior leads. Trop trending down. Could be related to low normal BP as well as low hemoglobin. Will continue with PT/OT (4) Non-ST elevation [place] (NSTEMI): Code(s): I21.4 - Non-ST elevation (NSTEMI) myocardial infarction Status: Acute Assessment and Plan: Patient presents with complaints of chest pain and shortness of breath with exertion. Troponin peaked at 0.33. EKG 01/17 showing delayed transition and borderline ST T wave changes in the anterior lateral and high lateral leads. Repeat EKG later on the same day showing new left bundle branch block. Echo showing EF of 55-60% with grade 1 diastolic dysfunction and hypokinetic apical septum and apical cap. Holding off on cardiac catheterization (if possible) given his new renal insufficiency. His CP has resolved and Trop continues to trend down. Suspect a component of the CP maybe related to anxiety. Plan for medical management until LHC can be performed safely. Chest CT from 01/23 showing small bilateral effusion with evidence of mild pulmonary edema; no left lung nodule. Continue aspirin, Plavix, Lipitor, Lopressor and Imdur. Appreciate Cardiology input. (5) Sinus pause: Code(s): I45.5 - Other specified heart block Status: Acute Assessment and Plan: Almost 5 sec cardiac pause on the morning of 01/20; possibly artifact. TSH normal. He is on Metoprolol. No apparent symptoms with this. No recurrence by tele (only up to 2sec). Continue tele. Monitor closely (6) Acute kidney failure: Qualifiers: Acute renal failure type: unspecified Qualified Code(s): N17.9 - Acute kidney failure, unspecified Code(s): N17.9 - Acute kidney failure, unspecified Status: Acute Assessment and Plan: Creatinine 9.2 on admission. Patient states that he does not have underlying kidney disease. Last lab work here in July 2017 showing creatinine 1.1. Suspect his renal failure is either subacute or chronic given that he has tolerated this change well. He was on Lasix on admission. He did have a major fall causing bruising of his back around Xmas. IV fluids started on admission. Renal ultrasound showing normal parenchymal echogenicity and moderate left hydronephrosis. Bladder appears normal. UA is negative for protein and blood. Patient is on Flomax. Romero catheter placed. FENa 6.2% to suggest renal (infiltrative?) or possibly post-renal (retroperitoneal fibrosis). SPEP showing evidence of acute inflammation; UPEP showing no abnormalities. Left ureteral stent placed 01/19. Lasix IV x1 given and IV fluids stopped 01/21. Patient's creatinine better at 2.2 and stable Monitor urine output and renal function.
--- NOTE | 2021-01-27 10:41 | PM.PNNEP ---
Progress Note: A&P Assessment and Plan (1) Acute kidney failure: Qualifiers: Acute renal failure type: unspecified Qualified Code(s): N17.9 - Acute kidney failure, unspecified Code(s): N17.9 - Acute kidney failure, unspecified Status: Acute Assessment and Plan: thought to be secondary to obstruction on his one good kidney renal ultrasound demonstrates small right kidney and large left kidney with moderate hydro in the left kidney randolph catheter placement did not help much but placement of left ureteral stent did creatinine slowly improving - baseline creatinine ~ 1.84mg/dl (early Jan 2021 [facility]) - however, he may have a new baseline given the severity of insult on his hospitalization diuretics on hold currently however, depending on imaging/respiratory status, may need to resume diuretics (2) Partial small bowel obstruction: Code(s): K56.600 - Partial intestinal obstruction, unspecified as to cause Status: Acute Assessment and Plan: as noted by imaging done earlier today NG tube in place Surgery consulted for further evaluation (3) CAD (coronary artery disease): Code(s): I25.10 - Atherosclerotic heart disease of [place] coronary artery without angina pectoris Status: Acute Assessment and Plan: no further chest pain at this time Cardiology following (4) H/O: HTN (hypertension): Code(s): Z86.79 - Personal history of other diseases of the circulatory system Status: Chronic Assessment and Plan: BP running higher now but suspect pain issues playing a role follow trend of hemodynamics (5) Normocytic anemia: Code(s): D64.9 - Anemia, unspecified Status: Acute Assessment and Plan: H/H low partly related to MARY/ARF empirically on Epogen (6) Diabetes mellitus: Qualifiers: Diabetes mellitus type: type 2 Diabetes mellitus fci insulin use: with rn long term care use Diabetes mellitus complication status: without complication Qualified Code(s): E11.9 - Type 2 diabetes mellitus without complications; Z79.4 - FPC (current) use of insulin Code(s): E11.9 - Type 2 diabetes mellitus without complications Status: Chronic Assessment and Plan: follow Accu-Cheks on sliding-scale insulin Will continue to follow. Subjective Date/time seen: 01/27/21 10:41 Overall, he states he feels better today; no nausea or vomiting but still having some abdominal pain -- more so around the stoma area; seems to be tolerating liquid diet but oral intake is suboptimal in general. Exam Narrative: Exam Narrative: General: WD/WN male in mild distress from pain Heart: normal S1 and S2; no rub Lungs: clear to auscultation anteriorly Abdomen: still with TTP around ostomy; decreased bowel sounds Extremities: no cyanosis or clubbing; 1+ edema Skin: warm and intact Objective Data Vital Signs Vital Signs: Vital Signs 01/27/21 03:34 01/27/21 04:00 01/27/21 06:00 Temperature Pulse Rate 55 L 77 66 Respiratory Rate 16 Blood Pressure Pulse Oximetry 95 01/27/21 08:00 01/27/21 08:21 01/27/21 10:00 Temperature 36.4 C Pulse Rate 57 L 138 H 59 L Respiratory Rate 20 Blood Pressure 159/50 H Pulse Oximetry 98 Intake/Output Intake/Output: Intake & Output 01/25/21 01/26/21 01/27/21 01/28/21 23:59 23:59 23:59 23:59 Intake Total 2180 600 2630 1660 Output Total 3500 1964 070 5188 Balance -1320 -970 2260 110 Meds/Results Medications: Active Medications Generic Name Dose Route Start Last Admin Trade Name Freq PRN Reason Stop Dose Admin Acetaminophen 650 mg 01/17/21 20:44 01/21/21 22:02 Acetaminophen 325 Mg Tablet PO 650 mg Q4H PRN Administration Mild Pain (1-3) or Fever Aspirin 81 mg 01/21/21 09:00 01/28/21 08:44 Aspirin 81 Mg Enteric Tablet PO 81 mg DAILY GIOVANY Administration Atorvastatin Calcium
--- NOTE | 2021-01-27 10:41 | P.PNNP_ITS ---
Progress Note: A&P Assessment and Plan (1) Acute kidney failure: Qualifiers: Acute renal failure type: unspecified Qualified Code(s): N17.9 - Acute kidney failure, unspecified Code(s): N17.9 - Acute kidney failure, unspecified Status: Acute Assessment and Plan: * thought to be secondary to obstruction on his one good kidney * renal ultrasound demonstrates small right kidney and large left kidney with moderate hydro in the left kidney * randolph catheter placement did not help much but placement of left ureteral stent did * creatinine slowly improving - baseline creatinine ~ 1.84mg/dl (early Jan 2021 [facility]) - however, he may have a new baseline given the severity of ins ult on his hospitalization * diuretics on hold currently * however, depending on imaging/respiratory status, may need to resume diuretics (2) Partial small bowel obstruction: Code(s): K56.600 - Partial intestinal obstruction, unspecified as to cause Status: Acute Assessment and Plan: * as noted by imaging done earlier today * NG tube in place * Surgery consulted for further evaluation (3) CAD (coronary artery disease): Code(s): I25.10 - Atherosclerotic heart disease of [place] coronary artery without angina pectoris Status: Acute Assessment and Plan: * no further chest pain at this time * Cardiology following (4) H/O: HTN (hypertension): Code(s): Z86.79 - Personal history of other diseases of the circulatory system Status: Chronic Assessment and Plan: * BP running higher now but suspect pain issues playing a role * follow trend of hemodynamics (5) Normocytic anemia: Code(s): D64.9 - Anemia, unspecified Status: Acute Assessment and Plan: * H/H low * partly related to MARY/ARF * empirically on Epogen (6) Diabetes mellitus: Qualifiers: Diabetes mellitus type: type 2 Diabetes mellitus parts counterman insulin use: with parts counterman use Diabetes mellitus complication status: without complication Qualified Code(s): E11.9 - Type 2 diabetes mellitus without complications; Z79.4 - care home (current) use of insulin Code(s): E11.9 - Type 2 diabetes mellitus without complications Status: Chronic Assessment and Plan: * follow Accu-Cheks * on sliding-scale insulin Will continue to follow. Subjective Date/time seen: 01/27/21 10:41 Overall, he states he feels better today; no nausea or vomiting but still having some abdominal pain -- more so around the stoma area; seems to be tolerating liquid diet but oral intake is suboptimal in general. Exam Narrative: Exam Narrative: General: WD/WN male in mild distress from pain Heart: normal S1 and S2; no rub Lungs: clear to auscultation anteriorly Abdomen: still with TTP around ostomy; decreased bowel sounds Extremities: no cyanosis or clubbing; 1+ edema Skin: warm and intact Objective Data Vital Signs Vital Signs: Vital Signs 01/27/21 03:34 01/27/21 04:00 01/27/21 06:00 Temperature Pulse Rate 55 L 77 66 Respiratory Rate 16 Blood Pressure Pulse Oximetry 95 01/27/21 08:00 01/27/21 08:21 01/27/21 10:00 Temperature 36.4 C Pulse Rate 57 L 138 H 59 L Respiratory Rate 20 Blood Pressure 159/50 H Pulse Oximetry 98 Intake/Output
[2021-01-27] MEDS: INSULIN ASPART (*BKC) 100 UNITS/ML SUB-Q ×2 (12:55→16:38)
[2021-01-27 13:00] LABS: Glucose Point of Care 281 (65-105)
--- NOTE | 2021-01-27 15:50 | PCWOUND ---
WOCN NOTE received consult to make a hernia binder for peristomal hernia. Patient with binder on.
[2021-01-27 17:10] LABS: Glucose Point of Care 306 (65-105)
[2021-01-27 20:10] LABS: Glucose Point of Care 200 (65-105)
[2021-01-27] MEDS: ATORVASTATIN 40 MG TABLET PO (20:21)
[2021-01-28] VITALS (8 sets, daily range): BP systolic 112–143; BP diastolic 46–53; PULSE 53–80; RESP 18–24; TEMP 36.1–36.5; O2SAT 95–98
[2021-01-28] MEDS: SODIUM CHLORIDE 0.9% IV 1,000 ML 70 ML IV CONT (04:22)
[2021-01-28 04:53] LABS: Basophils Percent Auto 0.2 % (0.2-1.2); Eosinophils Absolute Auto 0.4 K/mm3 (0-0.3); Eosinophils Percent Auto 4.1 % (0-4.4); Hematocrit 23.6 % (42.0-52.0); Hemoglobin 7.6 g/dL (14.0-18.0); Immature Granulocyte Absolute 0.14 K/mm3 (0.00-0.031); Immature Granulocyte Percent A 1.6 % (0-0.5); Lymphocytes Absolute Auto 1.81 K/mm3 (0.9-3.2); Lymphocytes Percent Auto 20.4 % (18.3-44.2); Mean Corpuscular HGB Conc 32.2 g/dl (32-36); Mean Corpuscular Hemoglobin 32.1 pg (26-34); Mean Corpuscular Volume 99.6 fl (80-100); Mean Platelet Volume 9.4 fl (7.4-10.4); Monocytes Absolute Auto 1.3 K/mm3 (0.1-0.6); Neutrophils Absolute Auto 5.2 K/mm3 (1.3-6.7); Neutrophils Percent Auto 58.7 % (45.5-73.1); Platelet Count Result 292 k/mm3 (150-375); Red Blood Count 2.37 M/mm3 (4.6-6.20); Red Cell Distribution Width 13.9 % (11.5-14.5); White Blood Count 8.9 K/mm3 (4.5-10.0)
[2021-01-28 05:11] LABS: Anion Gap 6 mmol/L (8-16); Blood Urea Nitrogen 22 mg/dL (9-20); Calcium 8.2 mg/dL (8.4-10.2); Carbon Dioxide 25 mmol/L (22-30); Chloride 105 mmol/L (98-107); Estimated CRCL calculation 27 ml/min; Estimated Glomerular Filt Rate 32; Glucose 144 mg/dL (75-110); Magnesium 1.6 mg/dL (1.6-2.3); Potassium 3.3 mmol/L (3.4-5.0); Sodium 136 mmol/L (137-145)
[2021-01-28] MEDS: LEVOTHYROXINE SODIUM 50 MCG TABLET PO (06:18)
[2021-01-28] MEDS: ISOSORBIDE MONONITRATE 60 MG TAB.ER.24H PO (08:44)
[2021-01-28] MEDS: CHOLECALCIFEROL 1,000 UNITS TABLET 2000 UNITS PO (08:44)
[2021-01-28] MEDS: CLOPIDOGREL BISULFATE 75 MG TABLET PO (08:44)
[2021-01-28] MEDS: VITAMIN B COMPLEX CAPSULE 1 CAP PO (08:44)
[2021-01-28] MEDS: ASPIRIN 81 MG ENTERIC TABLET PO (08:44)
[2021-01-28] MEDS: MULTIVIT W/ IRON, MINERALS 15 ML LIQUID (*BKC) PO (08:45)
[2021-01-28] MEDS: TAMSULOSIN HCL 0.4 MG CAPSULE PO (08:45)
[2021-01-28] MEDS: METOPROLOL TARTRATE 25 MG TABLET 75 MG PO ×2 (08:45→19:59)
[2021-01-28] MEDS: INSULIN DETEMIR 100 UNITS/ML 8 UNITS SUB-Q (08:45)
[2021-01-28 08:59] LABS: Glucose Point of Care 173 (65-105)
[2021-01-28] MEDS: POTASSIUM CHLORIDE 20 MEQ TABLET 40 MEQ PO (09:01)
[2021-01-28 09:06] LABS: Glucose Point of Care 156 (65-105)
--- NOTE | 2021-01-28 10:13 | PM.IMPN ---
Progress Note: A&P Assessment and Plan (1) Partial small bowel obstruction: Code(s): K56.600 - Partial intestinal obstruction, unspecified as to cause Status: Acute Assessment and Plan: 01/26 by KUB 01/28 Tolerating clear liquids with good ostomy output. Advance diet per general surgery (2) Nausea & vomiting: Code(s): R11.2 - Nausea with vomiting, unspecified Status: Acute Assessment and Plan: resolved (3) Pre-syncope: Code(s): R55 - Syncope and collapse Status: Acute Assessment and Plan: Patient had episode where he was feeling weak and fatigued possibly pre-syncopal. Symptoms better after he slept. Could have been tired from therapy. EKG performed showing improvement in the R wave progressing but T wave changes in the anterior leads. Trop trending down. Could be related to low normal BP as well as low hemoglobin. Will continue with PT/OT (4) Non-ST elevation [place] (NSTEMI): Code(s): I21.4 - Non-ST elevation (NSTEMI) myocardial infarction Status: Acute Assessment and Plan: Patient presents with complaints of chest pain and shortness of breath with exertion. Troponin peaked at 0.33. EKG 01/17 showing delayed transition and borderline ST T wave changes in the anterior lateral and high lateral leads. Repeat EKG later on the same day showing new left bundle branch block. Echo showing EF of 55-60% with grade 1 diastolic dysfunction and hypokinetic apical septum and apical cap. Holding off on cardiac catheterization (if possible) given his new renal insufficiency. His CP has resolved and Trop continues to trend down. Suspect a component of the CP maybe related to anxiety. Plan for medical management until LHC can be performed safely. Chest CT from 01/23 showing small bilateral effusion with evidence of mild pulmonary edema; no left lung nodule. Continue aspirin, Plavix, Lipitor, Lopressor and Imdur. 01/28 d/w cardiology and OK to transfer to [facility] w/o tele (5) Sinus pause: Code(s): I45.5 - Other specified heart block Status: Acute Assessment and Plan: Almost 5 sec cardiac pause on the morning of 01/20; possibly artifact. TSH normal. He is on Metoprolol. No apparent symptoms with this. No recurrence by tele (only up to 2sec). (6) Acute kidney failure: Qualifiers: Acute renal failure type: unspecified Qualified Code(s): N17.9 - Acute kidney failure, unspecified Code(s): N17.9 - Acute kidney failure, unspecified Status: Acute Assessment and Plan: Creatinine 9.2 on admission. Patient states that he does not have underlying kidney disease. Last lab work here in July 2017 showing creatinine 1.1. Suspect his renal failure is either subacute or chronic given that he has tolerated this change well. He was on Lasix on admission. He did have a major fall causing bruising of his back around Xmas. IV fluids started on admission. Renal ultrasound showing normal parenchymal echogenicity and moderate left hydronephrosis. Bladder appears normal. UA is negative for protein and blood. Patient is on Flomax. Romero catheter placed. FENa 6.2% to suggest renal (infiltrative?) or possibly post-renal (retroperitoneal fibrosis). SPEP showing evidence of acute inflammation; UPEP showing no abnormalities. Left ureteral stent placed 01/19. Lasix IV x1 given and IV fluids stopped 01/21. Patient's creatinine better at 2.2 and stable Monitor urine output and renal function. 01/28 creatinine 2.0 (7) Acute diastolic CHF (congestive heart failure): Code(s): I50.31 - Acute diastolic (congestive) heart failure Status: Acute Assessment and Plan: Echo showing EF 55-60% and Grade I diastolic dysfunction. CXR 01/22 showing CMG with mild pulmonary edema. Mild CHF exacerbation. Treated with IV Lasix and IV fluids stopped 01/21. Remains on room air. (8) Hydronephrosis, left: Code(s):
[2021-01-28] MEDS: MAGNESIUM SULF 1 GM/D5W 100 ML 1 GM/100 ML BAG IVPB (10:22)
[2021-01-28 12:14] LABS: Glucose Point of Care 197 (65-105)
--- NOTE | 2021-01-28 12:24 | PM.PNCARD ---
Progress Note: A&P Assessment and Plan (1) Non-ST elevation CT (NSTEMI): Code(s): I21.4 - Non-ST elevation (NSTEMI) myocardial infarction Status: Acute Assessment and Plan: Patient has a clinical scenario consistent with possible acute coronary syndrome. He does have a history of coronary disease and coronary bypass grafting on 2 separate occasions. At this point given his severe renal insufficiency, he will be treated medically for now. Risk stratify with a Lexiscan when more medically stable. PT and in agreement with plan of care. Avoid [facility] given renal failure and clinical stability, trop declined (elevated 2nd ARF less likely ACS but cannot exclude underlying CAD). Cont ASA and Plavix. Declining Trop, no new EKG changes. Plan for outpatient workup provided pt remains stable. Overall, most likely explanation is Trop elevation due to severe ARF and not acute coronary plaque rupture. Continue conservative management at this time. (2) Acute kidney failure: Qualifiers: Acute renal failure type: unspecified Qualified Code(s): N17.9 - Acute kidney failure, unspecified Code(s): N17.9 - Acute kidney failure, unspecified Status: Acute Assessment and Plan: Slowly improving Continue to hold losartan and potassium. Renal function slowly improving. Nephrology following (3) CAD (coronary artery disease): Code(s): I25.10 - Atherosclerotic heart disease of [place] coronary artery without angina pectoris Status: Acute Assessment and Plan: As detailed above, continue dual antiplatelet therapy, monitor for bleeding. Continue nitrates, statin, beta-kurtis, DVT prophylaxis. Continue atorvastatin. (4) Acute diastolic CHF (congestive heart failure): Code(s): I50.31 - Acute diastolic (congestive) heart failure Status: Acute Assessment and Plan: Clinically fairly euvolemic. P.r.n. diuresis. doing well thus far. Discontinue IV fluids when taking p.o. reliably. (5) Hypertension associated with diabetes: Code(s): E11.59 - Type 2 diabetes mellitus with other circulatory complications; I15.2 - Hypertension secondary to endocrine disorders Status: Acute Assessment and Plan: Reasonably controlled, Somewhat labile. (6) History of aortic valve replacement: Code(s): Z95.2 - Presence of prosthetic heart valve Status: Acute Assessment and Plan: Functioning normally. Prophylactic antibiotics (7) LBBB (left bundle branch block): Code(s): I44.7 - Left bundle-branch block, unspecified Status: Acute Assessment and Plan: Had a new left bundle branch block initially resolved on subsequent EKG. (8) Anemia: Code(s): D64.9 - Anemia, unspecified Status: Acute Assessment and Plan: H&H slight decline but overall fairly stable. Continue to monitor for signs of bleeding. Off heparin, continue ASA and Plavix. and s/p ureteral stent, has a Romero. Subjective Date/time seen: date of service: 01/28/21 12:24 Follow-up for: Interval history: 80yo male with hx of CAD, h/o CABG and redo, ACS w/ peak trop 0.33, AVR and DM here for chest pain possibly ACS, diast CHF ARF 2nd hydronephrosis. S/P ureteral stent 01/19/2021 with improvement of renal fxn. Echo EF 55-60%, mild LVH, diast dysfxn, bioprosthetic AV OK, apical septum and apex hypokinetic. He had a catheterization in May of 2010 which showed severe aortic stenosis with occlusion of the LAD and RCA with a patent FIORE to the LAD and vein graft to the RCA. In July of 2010 he had a redo bypass
--- NOTE | 2021-01-28 15:48 | PM.PNNEP ---
Progress Note: A&P Assessment and Plan (1) Acute kidney failure: Qualifiers: Acute renal failure type: unspecified Qualified Code(s): N17.9 - Acute kidney failure, unspecified Code(s): N17.9 - Acute kidney failure, unspecified Status: Acute Assessment and Plan: thought to be secondary to obstruction on his one good kidney renal ultrasound demonstrates small right kidney and large left kidney with moderate hydro in the left kidney randolph catheter placement did not help much but placement of left ureteral stent did creatinine slowly improving - baseline creatinine ~ 1.84mg/dl (as [facility] in [facility] Jan 2021 [facility]) - however, he may have a new baseline given the severity of insult on his hospitalization diuretics on hold currently however, depending on imaging/respiratory status, may need to resume diuretics (2) Partial small bowel obstruction: Code(s): K56.600 - Partial intestinal obstruction, unspecified as to cause Status: Acute Assessment and Plan: as noted by imaging done NG tube is out Surgery following slowly advancing diet (3) CAD (coronary artery disease): Code(s): I25.10 - Atherosclerotic heart disease of [place] coronary artery without angina pectoris Status: Acute Assessment and Plan: no further chest pain at this time Cardiology following (4) H/O: HTN (hypertension): Code(s): Z86.79 - Personal history of other diseases of the circulatory system Status: Chronic Assessment and Plan: BP running higher now but suspect pain issues playing a role follow trend of hemodynamics (5) Normocytic anemia: Code(s): D64.9 - Anemia, unspecified Status: Acute Assessment and Plan: H/H low partly related to MARY/ARF empirically on Epogen (6) Diabetes mellitus: Qualifiers: Diabetes mellitus complication status: without complication Diabetes mellitus residential insulin use: with residential use Diabetes mellitus type: type 2 Qualified Code(s): E11.9 - Type 2 diabetes mellitus without complications; Z79.4 - alf (current) use of insulin Code(s): E11.9 - Type 2 diabetes mellitus without complications Status: Chronic Assessment and Plan: follow Accu-Cheks on sliding-scale insulin Will continue to follow. Subjective Date/time seen: 01/28/21 15:48 Doing somewhat better -- appears to be tolerating diet (clear liquids) but still with some discomfort around stoma; notes pain in abdomen with any sudden movement or coughing; no other acute issues/problems at this time; no events overnight or earlier today. Exam Narrative: Exam Narrative: General: WD/WN male in NAD Heart: normal S1 and S2; no rub Lungs: clear anteriorly Abdomen: still mild TTP around ostomy; decreased bowel sounds Extremities: no cyanosis or clubbing; 1+ edema Skin: warm and intact Objective Data Vital Signs Vital Signs: Vital Signs Temp Pulse Resp BP Pulse Ox 01/28/21 12:00 36.2 C L 58 L 18 122/46 L 98 01/28/21 10:00 67 01/28/21 08:45 80 01/28/21 08:00 36.1 C L 66 22 H 143/53 H 95 01/28/21 04:00 36.3 C L 68 18 112/51 L 97 01/28/21 00:00 36.5 C 54 L 18 112/53 L 98 01/27/21 20:22 80 01/27/21 20:00 84 Intake/Output Intake/Output: Intake & Output 01/25/21 01/26/21 01/27/21 01/28/21 23:59 23:59 23:59 23:59 Intake Total 2180 600 2630 1660 Output Total 3500 0174 377 1000 Balance -1320 -970 2260 110 Meds/Results Medications: Active Medications Generic Name Dose Route Start Last Admin Trade Name Freq PRN Reason Stop Dose Admin Acetaminophen 650 mg 01/17/21 20:44 01/21/21 22:02 Acetaminophen 325 Mg Tablet PO 650 mg Q4H PRN Administration Mild Pain (1-3) or Fever Aspirin 81 mg 01/21/21 09:00 01/28/21 08:44 Aspirin 81 Mg Enteric Tablet PO 81 mg DAILY GIOVANY Administration Atorva
--- NOTE | 2021-01-28 15:48 | P.PNNP_ITS ---
Progress Note: A&P Assessment and Plan (1) Acute kidney failure: Qualifiers: Acute renal failure type: unspecified Qualified Code(s): N17.9 - Acute kidney failure, unspecified Code(s): N17.9 - Acute kidney failure, unspecified Status: Acute Assessment and Plan: * thought to be secondary to obstruction on his one good kidney * renal ultrasound demonstrates small right kidney and large left kidney with moderate hydro in the left kidney * randolph catheter placement did not help much but placement of left ureteral stent did * creatinine slowly improving - baseline creatinine ~ 1.84mg/dl (as [facility] in early Jan 2021 [facility]) - however, he may have a new baseline given the severity of insult on his hospitalization * diuretics on hold currently * however, depending on imaging/respiratory status, may need to resume diuretics (2) Partial small bowel obstruction: Code(s): K56.600 - Partial intestinal obstruction, unspecified as to cause Status: Acute Assessment and Plan: * as noted by imaging done * NG tube is out * Surgery following * slowly advancing diet (3) CAD (coronary artery disease): Code(s): I25.10 - Atherosclerotic heart disease of [place] coronary artery without angina pectoris Status: Acute Assessment and Plan: * no further chest pain at this time * Cardiology following (4) H/O: HTN (hypertension): Code(s): Z86.79 - Personal history of other diseases of the circulatory system Status: Chronic Assessment and Plan: * BP running higher now but suspect pain issues playing a role * follow trend of hemodynamics (5) Normocytic anemia: Code(s): D64.9 - Anemia, unspecified Status: Acute Assessment and Plan: * H/H low * partly related to MARY/ARF * empirically on Epogen (6) Diabetes mellitus: Qualifiers: Diabetes mellitus complication status: without complication Diabetes mellitus correction insulin use: with correction use Diabetes mellitus type: type 2 Qualified Code(s): E11.9 - Type 2 diabetes mellitus without complications; Z79.4 - intermediate manager (current) use of insulin Code(s): E11.9 - Type 2 diabetes mellitus without complications Status: Chronic Assessment and Plan: * follow Accu-Cheks * on sliding-scale insulin Will continue to follow. Subjective Date/time seen: 01/28/21 15:48 Doing somewhat better -- appears to be tolerating diet (clear liquids) but still with some discomfort around stoma; notes pain in abdomen with any sudden movement or coughing; no other acute issues/problems at this time; no events overnight or earlier today. Exam Narrative: Exam Narrative: General: WD/WN male in NAD Heart: normal S1 and S2; no rub Lungs: clear anteriorly Abdomen: still mild TTP around ostomy; decreased bowel sounds Extremities: no cyanosis or clubbing; 1+ edema Skin: warm and intact Objective Data Vital Signs Vital Signs: Vital Signs Temp Pulse Resp BP Pulse Ox 01/28/21 12:00 36.2 C L 58 L 18 122/46 L 98 01/28/21 10:00 67 01/28/21 08:45 80 01/28/21 08:00 36.1 C L 66 22 H 143/53 H 95 01/28/21 04:00 36.3 C L 68 18 112/51 L 97 01/28/21 00:00 36.5 C 54 L 18 112/53 L 98 01/27/21 20:22 80 01/27/21 20:00 84 Intake/Output Intake/Output: Intake
[2021-01-28 16:28] LABS: Glucose Point of Care 273 (65-105)
[2021-01-28] MEDS: INSULIN ASPART (*BKC) 100 UNITS/ML SUB-Q ×2 (17:13→19:59)
[2021-01-28] MEDS: ATORVASTATIN 40 MG TABLET PO (19:58)
[2021-01-28 20:13] LABS: Glucose Point of Care 331 (65-105)
[2021-01-28] MEDS: ONDANSETRON INJ 4 MG/2 ML VIAL IV PUSH (20:55)
[2021-01-29] VITALS (7 sets, daily range): BP systolic 110–131; BP diastolic 45–57; PULSE 58–66; RESP 16–18; TEMP 36.2–36.6; O2SAT 96–100
[2021-01-29 04:37] LABS: Hematocrit 24.3 % (42.0-52.0); Mean Corpuscular HGB Conc 32.9 g/dl (32-36); Mean Corpuscular Hemoglobin 32.4 pg (26-34); Mean Corpuscular Volume 98.4 fl (80-100); Mean Platelet Volume 9.5 fl (7.4-10.4); Platelet Count Result 302 k/mm3 (150-375); Red Blood Count 2.47 M/mm3 (4.6-6.20); Red Cell Distribution Width 14.1 % (11.5-14.5); White Blood Count 8.6 K/mm3 (4.5-10.0)
[2021-01-29 04:50] LABS: Anion Gap 6 mmol/L (8-16); Blood Urea Nitrogen 21 mg/dL (9-20); Calcium 8.1 mg/dL (8.4-10.2); Carbon Dioxide 23 mmol/L (22-30); Chloride 108 mmol/L (98-107); Estimated CRCL calculation 30 ml/min; Estimated Glomerular Filt Rate 36; Glucose 147 mg/dL (75-110); Magnesium 1.6 mg/dL (1.6-2.3); Phosphorus 3.2 mg/dL (2.5-4.5); Potassium 3.9 mmol/L (3.4-5.0); Sodium 137 mmol/L (137-145)
[2021-01-29 05:58] LABS: Glucose Point of Care 144 (65-105)
[2021-01-29] MEDS: LEVOTHYROXINE SODIUM 50 MCG TABLET PO (05:58)
--- NOTE | 2021-01-29 06:59 | PC.NURSE ---
This patient, Mauricio Garces, was transferred to room 304 on 01/29/21 at 0648. Personal belongings sent with patient. Report given to MAVIS Redd. Appropriate documentation sent with patient.
[2021-01-29 08:20] LABS: Glucose Point of Care 160 (65-105)
[2021-01-29] MEDS: CLOPIDOGREL BISULFATE 75 MG TABLET PO (08:36)
[2021-01-29] MEDS: METOPROLOL TARTRATE 25 MG TABLET 75 MG PO ×2 (08:36→22:22)
[2021-01-29] MEDS: ASPIRIN 81 MG ENTERIC TABLET PO (08:36)
[2021-01-29] MEDS: ISOSORBIDE MONONITRATE 60 MG TAB.ER.24H PO (08:37)
[2021-01-29] MEDS: TAMSULOSIN HCL 0.4 MG CAPSULE PO (08:37)
[2021-01-29] MEDS: VITAMIN B COMPLEX CAPSULE 1 CAP PO (08:37)
[2021-01-29] MEDS: CHOLECALCIFEROL 1,000 UNITS TABLET 2000 UNITS PO (08:37)
[2021-01-29] MEDS: INSULIN DETEMIR 100 UNITS/ML 8 UNITS SUB-Q (08:38)
[2021-01-29] MEDS: MULTIVIT W/ IRON, MINERALS 15 ML LIQUID (*BKC) PO (08:39)
[2021-01-29] MEDS: SODIUM CHLORIDE 0.9% IV 1,000 ML 70 ML IV CONT (09:25)
[2021-01-29 12:25] LABS: Glucose Point of Care 189 (65-105)
--- NOTE | 2021-01-29 14:07 | PM.PNNEP ---
Progress Note: A&P Assessment and Plan (1) Acute kidney failure: Qualifiers: Acute renal failure type: unspecified Qualified Code(s): N17.9 - Acute kidney failure, unspecified Code(s): N17.9 - Acute kidney failure, unspecified Status: Acute Assessment and Plan: resolving thought to be secondary to obstruction on his one good kidney renal ultrasound demonstrates small right kidney and large left kidney with moderate hydro in the left kidney randolph catheter placement did not help much but placement of left ureteral stent did creatinine slowly improving diuretics on hold currently however, depending on imaging/respiratory status, may need to resume diuretics (2) Stage 3b chronic kidney disease: Code(s): N18.32 - Chronic kidney disease, stage 3b Status: Chronic Assessment and Plan: baseline creatinine ~ 1.84mg/dl (as [facility] in early Jan 2021 [facility]) probably due to loss of nephron mass (small right kidney), HTN, and possible vascular disease (3) Partial small bowel obstruction: Code(s): K56.600 - Partial intestinal obstruction, unspecified as to cause Status: Acute Assessment and Plan: as noted by imaging done NG tube is out Surgery following slowly advancing diet (4) CAD (coronary artery disease): Code(s): I25.10 - Atherosclerotic heart disease of [place] coronary artery without angina pectoris Status: Acute Assessment and Plan: no further chest pain at this time Cardiology following (5) H/O: HTN (hypertension): Code(s): Z86.79 - Personal history of other diseases of the circulatory system Status: Chronic Assessment and Plan: BP under reasonable control follow trend of hemodynamics (6) Normocytic anemia: Code(s): D64.9 - Anemia, unspecified Status: Acute Assessment and Plan: H/H low partly related to MARY/ARF and perhaps underlying CKD empirically on Epogen (7) Diabetes mellitus: Qualifiers: Diabetes mellitus complication status: without complication Diabetes mellitus prison insulin use: with prison use Diabetes mellitus type: type 2 Qualified Code(s): E11.9 - Type 2 diabetes mellitus without complications; Z79.4 - intermission coordinator (current) use of insulin Code(s): E11.9 - Type 2 diabetes mellitus without complications Status: Chronic Assessment and Plan: follow Accu-Cheks on sliding-scale insulin Will continue to follow. Subjective Date/time seen: 01/29/21 14:07 Making slow and steady improvement -- states he feels much better today; no other issues to report; no events overnight. Exam Narrative: Exam Narrative: General: WD/WN male in NAD Heart: normal S1 and S2; no rub Lungs: clear anteriorly Abdomen: still mild TTP around ostomy; decreased bowel sounds Extremities: no cyanosis or clubbing; 1+ edema Skin: warm and intact Objective Data Vital Signs Vital Signs: Vital Signs Temp Pulse Resp BP Pulse Ox 01/29/21 14:00 36.2 C L 58 L 16 126/52 L 100 01/29/21 08:36 64 01/29/21 06:50 36.3 C L 63 18 118/57 L 99 01/29/21 00:00 36.6 C 58 L 16 110/45 L 98 01/28/21 19:59 65 Intake/Output Intake/Output: Intake & Output 01/26/21 01/27/21 01/28/21 01/29/21 23:59 23:59 23:59 23:59 Intake Total 600 2630 2660 840 Output Total 9549 479 4699 500 Balance -970 2260 1110 340 Meds/Results Medications: Active Medications Generic Name Dose Route Start Last Admin Trade Name Freq PRN Reason Stop Dose Admin Acetaminophen 650 mg 01/17/21 20:44 01/21/21 22:02 Acetaminophen 325 Mg Tablet PO 650 mg Q4H PRN Administration Mild Pain (1-3) or Fever Aspirin 81 mg 01/21/21 09:00 01/29/21 08:36 Aspirin 81 Mg Enteric Tablet PO 81 mg DAILY GIOVANY Administration Atorvastatin Calcium 40 mg 01/18/21 21:00 01/28/21 19:58 Atorvastatin 40 Mg Tablet PO 40 mg
--- NOTE | 2021-01-29 14:07 | P.PNNP_ITS ---
Progress Note: A&P Assessment and Plan (1) Acute kidney failure: Qualifiers: Acute renal failure type: unspecified Qualified Code(s): N17.9 - Acute kidney failure, unspecified Code(s): N17.9 - Acute kidney failure, unspecified Status: Acute Assessment and Plan: * resolving * thought to be secondary to obstruction on his one good kidney * renal ultrasound demonstrates small right kidney and large left kidney with moderate hydro in the left kidney * randolph catheter placement did not help much but placement of left ureteral stent did * creatinine slowly improving * diuretics on hold currently * however, depending on imaging/respiratory status, may need to resume diuretics (2) Stage 3b chronic kidney disease: Code(s): N18.32 - Chronic kidney disease, stage 3b Status: Chronic Assessment and Plan: * baseline creatinine ~ 1.84mg/dl (as [facility] Jan 2021 [facility]) * probably due to loss of nephron mass (small right kidney), HTN, and possible vascular disease (3) Partial small bowel obstruction: Code(s): K56.600 - Partial intestinal obstruction, unspecified as to cause Status: Acute Assessment and Plan: * as noted by imaging done * NG tube is out * Surgery following * slowly advancing diet (4) CAD (coronary artery disease): Code(s): I25.10 - Atherosclerotic heart disease of [place] coronary artery without angina pectoris Status: Acute Assessment and Plan: * no further chest pain at this time * Cardiology following (5) H/O: HTN (hypertension): Code(s): Z86.79 - Personal history of other diseases of the circulatory system Status: Chronic Assessment and Plan: * BP under reasonable control * follow trend of hemodynamics (6) Normocytic anemia: Code(s): D64.9 - Anemia, unspecified Status: Acute Assessment and Plan: * H/H low * partly related to MARY/ARF and perhaps underlying CKD * empirically on Epogen (7) Diabetes mellitus: Qualifiers: Diabetes mellitus complication status: without complication Diabetes mellitus termite treater helper insulin use: with half-way use Diabetes mellitus type: type 2 Qualified Code(s): E11.9 - Type 2 diabetes mellitus without complications; Z79.4 - bed bug exterminator (current) use of insulin Code(s): E11.9 - Type 2 diabetes mellitus without complications Status: Chronic Assessment and Plan: * follow Accu-Cheks * on sliding-scale insulin Will continue to follow. Subjective Date/time seen: 01/29/21 14:07 Making slow and steady improvement -- states he feels much better today; no other issues to report; no events overnight. Exam Narrative: Exam Narrative: General: WD/WN male in NAD Heart: normal S1 and S2; no rub Lungs: clear anteriorly Abdomen: still mild TTP around ostomy; decreased bowel sounds Extremities: no cyanosis or clubbing; 1+ edema Skin: warm and intact Objective Data Vital Signs Vital Signs: Vital Signs Temp Pulse Resp BP Pulse Ox 01/29/21 14:00 36.2 C L 58 L 16 126/52 L 100 01/29/21 08:36 64 01/29/21 06:50 36.3 C L 63 18 118/57 L 99 01/29/21 00:00 36.6 C 58 L 16 110/45 L 98 01/28/21 19:59 65 Intake/Output Intake/Output: Intake & Output 01/26/21 01/27/21 01/28/21 01/29/21 23:59 23:59 23:59
[2021-01-29 17:21] LABS: Glucose Point of Care 257 (65-105)
[2021-01-29] MEDS: INSULIN ASPART (*BKC) 100 UNITS/ML SUB-Q (17:56)
--- NOTE | 2021-01-29 19:07 | PM.IMPN ---
Progress Note: A&P Assessment and Plan (1) Parastomal hernia: Code(s): K43.5 - Parastomal hernia without obstruction or gangrene Status: Acute Assessment and Plan: Reduced at bedside Abdominal binder in place Ileostomy bag in place. Follow surgery recs. (2) Partial small bowel obstruction: Code(s): K56.600 - Partial intestinal obstruction, unspecified as to cause Status: Acute Assessment and Plan: Resolved Advanced diet as per surgery (3) Nausea & vomiting: Code(s): R11.2 - Nausea with vomiting, unspecified Status: Acute Assessment and Plan: [id number]. (4) Pre-syncope: Code(s): R55 - Syncope and collapse Status: Acute Assessment and Plan: Likely vasovagal in nature No new episodes. (5) Weakness: Code(s): R53.1 - Weakness Status: Acute Assessment and Plan: Likely secondary to acute illness PT/OT (6) Acute diastolic CHF (congestive heart failure): Code(s): I50.31 - Acute diastolic (congestive) heart failure Status: Acute Assessment and Plan: Monitor I/O's Seems ti be stable (7) LBBB (left bundle branch block): Code(s): I44.7 - Left bundle-branch block, unspecified Status: Acute Assessment and Plan: Continue to monitor (8) Hydronephrosis, left: Code(s): N13.30 - Unspecified hydronephrosis Status: Acute Assessment and Plan: S/p stent placement (9) Elevated troponin: Code(s): R77.8 - Other specified abnormalities of plasma proteins Status: Acute Assessment and Plan: Likely ACS Appreciate Cardiology note Medical management for the time being as patient with MARY Supportive care Chest pain free (10) Diabetes mellitus: Qualifiers: Diabetes mellitus type: type 2 Diabetes mellitus custodial insulin use: with custodial use Diabetes mellitus complication status: without complication Qualified Code(s): E11.9 - Type 2 diabetes mellitus without complications; Z79.4 - buttermaker helper (current) use of insulin Code(s): E11.9 - Type 2 diabetes mellitus without complications Status: Chronic Assessment and Plan: Continue to monitor ISS as needed Subjective Date/time seen: 01/29/21 19:07 I feel much better today. Review of Systems Review of Systems: Narrative: no new issues Exam Narrative: Exam Narrative: Sitting in chair. Const: General: comfortable, no acute distress, alert, awake and Physically active Nutritional Appearance: overweight Orientation/consciousness: patient oriented x3 HENMT: Head: normal to inspection and normocephalic Ears: hearing grossly normal bilaterally General nose exam: Normal external nose present Face and sinus: normal facial exam Eyes: General: appearance normal, both eyes and all related structures Pupils: Equal, round and reactive pupils present EOM: EOMs intact bilaterally Neck: Neck: no lymphadenopathy, supple and no JVD Resp: Auscultation: clear to auscultation bilaterally Cardio: Rate: regular rate Rhythm: regular rhythm GI: Inspection: distended and other (colostomy bag in place.) GI Palp: Yes Firmness to palpation present (GI) and Yes No hepatosplenomegaly present Skin: Rashes: no rashes Neuro: General: patient oriented x3 and CN's II-XI intact bilaterally Cranial nerves: Yes CN's II-XII intact bilaterally and Yes Equal, round and reactive pupils present Cognition (Neuro): normal cognition Speech: normal speech Motor exam (neuro): 5/5 motor strength present throughout Extrem: General: no pedal edema Objective Data Vital Signs Vital Signs: Vital Signs - 24 hr 01/28/21 19:59 01/29/21 00:00 01/29/21 06:50 Temperature 97.8 F 97.4 F L Pulse Rate 65 58 L 63 Respiratory Rate 16 18 Blood Pressure 110/45 L 118/57 L Pulse Oximetry 98 99 01/29/21 08:36 01/29/21 14:00 Temperature 97.2 F L Pulse Rate 64 58 L Respiratory Rate 16 Blood Pressure 126
[2021-01-29] MEDS: ATORVASTATIN 40 MG TABLET PO (22:22)
[2021-01-29 22:58] LABS: Glucose Point of Care 211 (65-105)
[2021-01-30 05:47] VITALS: BP 141/54; PULSE 60; RESP 18; TEMP 36.7; O2SAT 100
[2021-01-30] MEDS: LEVOTHYROXINE SODIUM 50 MCG TABLET PO (05:57)
[2021-01-30] MEDS: SODIUM CHLORIDE 0.9% IV 1,000 ML 70 ML IV CONT (05:58)
[2021-01-30] MEDS: CHOLECALCIFEROL 1,000 UNITS TABLET 2000 UNITS PO (08:19)
[2021-01-30] MEDS: CLOPIDOGREL BISULFATE 75 MG TABLET PO (08:19)
[2021-01-30] MEDS: ASPIRIN 81 MG ENTERIC TABLET PO (08:19)
[2021-01-30] MEDS: ISOSORBIDE MONONITRATE 60 MG TAB.ER.24H PO (08:19)
[2021-01-30] MEDS: VITAMIN B COMPLEX CAPSULE 1 CAP PO (08:19)
[2021-01-30] MEDS: TAMSULOSIN HCL 0.4 MG CAPSULE PO (08:19)
[2021-01-30 08:20] VITALS: PULSE 60
[2021-01-30] MEDS: METOPROLOL TARTRATE 25 MG TABLET 75 MG PO ×2 (08:20→20:29)
[2021-01-30 08:21] LABS: Glucose Point of Care 132 (65-105)
[2021-01-30] MEDS: MULTIVIT W/ IRON, MINERALS 15 ML LIQUID (*BKC) PO (08:21)
[2021-01-30] MEDS: INSULIN DETEMIR 100 UNITS/ML 8 UNITS SUB-Q (08:24)
[2021-01-30 09:50] VITALS: BMI 29.9
[2021-01-30] MEDS: EPOETIN ALFA-EPBX 10,000 UNITS/ML VIAL 10000 UNITS SUB-Q (10:36)
--- NOTE | 2021-01-30 11:01 | WPDUROPN2 ---
Progress Note: A&P Assessment and Plan (1) Stage 3b chronic kidney disease: Code(s): N18.32 - Chronic kidney disease, stage 3b Status: Chronic (2) Hydronephrosis, left: Code(s): N13.30 - Unspecified hydronephrosis Status: Acute Assessment and Plan: Creat. just about back to normal following stent placement. Will plan cysto./ureteroscopy for late January (assuming no setbacks with other medical issues) Subjective Subjective Date/Time Seen: 01/30/21 11:01 Continue to tolerate stent, voiding well Review of Systems Cardiovascular: Cardiovascular: Denies chest pain, Denies lightheadedness, Denies palpitations and Denies dyspnea Respiratory: Respiratory: Denies dyspnea Gastrointestinal: Gastrointestinal: Denies diarrhea, Denies nausea and Denies vomiting Genitourinary: Genitourinary: Denies hematuria and Denies dysuria Endocrine: Endocrine: Denies palpitations Exam Const: General: no acute distress Resp: Effort & Inspection: normal respiratory effort GI: Inspection: non-distended GI Palp: No abdominal tenderness and No Guarding due to palpation present (GI) Auscultation: normal bowel sounds Objective Data Vital Signs Vital Signs: Vital Signs - 24 hr 01/29/21 14:00 01/29/21 20:00 01/29/21 22:00 Temperature 97.2 F L 97.7 F Pulse Rate 58 L 66 Respiratory Rate 16 18 18 Blood Pressure 126/52 L 131/50 L Pulse Oximetry 100 96 01/29/21 22:22 01/30/21 05:47 01/30/21 08:20 Temperature 98.1 F Pulse Rate 66 60 60 Respiratory Rate 18 Blood Pressure 141/54 H Pulse Oximetry 100 Intake/Output Intake/Output: Intake & Output 01/27/21 01/28/21 01/29/21 01/30/21 23:59 23:59 23:59 23:59 Intake Total 2630 2660 2450 760 Output Total 370 1550 1075 1925 Balance 2260 1110 1375 -1165 Meds/Results Medications: Active Medications Generic Name Dose Route Start Last Admin Trade Name Freq PRN Reason Stop Dose Admin Acetaminophen 650 mg 01/17/21 20:44 01/21/21 22:02 Acetaminophen 325 Mg Tablet PO 650 mg Q4H PRN Administration Mild Pain (1-3) or Fever Aspirin 81 mg 01/21/21 09:00 01/30/21 08:19 Aspirin 81 Mg Enteric Tablet PO 81 mg DAILY GIOVANY Administration Atorvastatin Calcium 40 mg 01/18/21 21:00 01/29/21 22:22 Atorvastatin 40 Mg Tablet PO 40 mg HS GIOVANY Administration Clopidogrel Bisulfate 75 mg 01/21/21 09:00 01/30/21 08:19 Clopidogrel Bisulfate 75 Mg Tablet PO 75 mg QAM GIOVANY Administration Dextrose 12.5 gm 01/17/21 21:14 Dextrose 50% 25 Gm/50 Ml Syringe IV PUSH PRN PRN Hypoglycemia Protocol Epoetin Parrish-epbx 10,000 units 01/20/21 09:00 01/30/21 10:36 Epoetin Parrish-Epbx 10,000 Units/Ml Vial SUB-Q 10,000 units MOWEFR GIOVANY Administration Glucagon 1 mg 01/17/21 21:14 Glucagon For Inj 1 Mg Vial IM PRN PRN Hypoglycemia Protocol Glucose 15 gm 01/17/21 21:14 Glucose Oral Gel 15 Gm Of Glucse In 37.5 Gm Tube PO PRN PRN Hypoglycemia Protocol Dextrose 1,000 mls @ 100 mls/hr 01/17/21 21:14 Dextrose 5% 1,000 Ml IVPB PRN PRN Hypoglycemia Protocol Sodium Chloride 1,000 mls @ 70 mls/hr 01/26/21 14:20 01/30/21 05:58 Normal Saline Iv IV CONT 70 mls/hr .[id number] GIOVANY Administration Insulin Aspart 2 - 5 units 01/18/21 11:30 01/30/21 08:24 Insulin Aspart (*Bkc) 100 Units/Ml SUB-Q Not Given ACHS GIOVANY Protocol Insulin Detemir 8 units 01/24/21 09:00 01/30/21 08:24 Insulin Detemir 100 Units/Ml SUB-Q 8 units QAM [facility] Administration Isosorbide Mononitrate 60 mg 01/20/21 09:00 01/30/21 08:19 Isosorbide Mononitrate 60 Mg Tab.Er.24h PO 60 mg QAM GIOVANY Administration Levalbuterol HCl 0.63 mg 01/26/21 14:31 Levalbuterol Neb 1.25 Mg/3 Ml INHALATION Q6HRT PRN Shortness Of Breath Or Wheezing Levothyroxine Sodium 50 mcg 01/18/21 09:00 01/30/21 05:57 Levothyroxine Sodium 50 Mcg Tablet
[2021-01-30 12:26] LABS: Glucose Point of Care 262 (65-105)
[2021-01-30] MEDS: INSULIN ASPART (*BKC) 100 UNITS/ML SUB-Q ×2 (12:50→17:14)
[2021-01-30 14:00] VITALS: BP 143/44; PULSE 60; RESP 18; TEMP 36.6; O2SAT 97
[2021-01-30 15:00] VITALS: BP 137/59
--- NOTE | 2021-01-30 15:27 | P.PNNP_ITS ---
Progress Note: A&P Assessment and Plan (1) Acute kidney failure: Qualifiers: Acute renal failure type: unspecified Qualified Code(s): N17.9 - Acute kidney failure, unspecified Code(s): N17.9 - Acute kidney failure, unspecified Status: Acute Assessment and Plan: * resolving * thought to be secondary to obstruction on his one good kidney * renal ultrasound demonstrates small right kidney and large left kidney with moderate hydro in the left kidney * randolph catheter placement did not help much but placement of left ureteral stent did * improved creatinine, almost down to baseline. * technical services consultant solution to obstruction procedure and timing up to urology. 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 advanced to full liquid. (4) CAD (coronary artery disease): Code(s): I25.10 - Atherosclerotic heart disease of [place] coronary artery without angina pectoris Status: Acute Assessment and Plan: * no further chest pain at this time * Cardiology following (5) H/O: HTN (hypertension): Code(s): Z86.79 - Personal history of other diseases of the circulatory system Status: Chronic Assessment and Plan: * BP under reasonable control * follow trend of hemodynamics (6) Normocytic anemia: Code(s): D64.9 - Anemia, unspecified Status: Acute Assessment and Plan: * H/H low * partly related to MARY/ARF and perhaps underlying CKD * empirically on Epogen * hb up to 8. (7) Diabetes mellitus: Qualifiers: Diabetes mellitus type: type 2 Diabetes mellitus technical services consultant insulin use: with group home use Diabetes mellitus complication status: without complication Qualified Code(s): E11.9 - Type 2 diabetes mellitus without complications; Z79.4 - USP (current) use of insulin Code(s): E11.9 - Type 2 diabetes mellitus without complications Status: Chronic Assessment and Plan: * follow Accu-Cheks * on sliding-scale insulin Will continue to follow. Subjective Date/time seen: 01/30/21 15:27 Interval history: pt is feeling okay no cp or sob. megan clear liquid diet./ he was on IVFs before but these have been discontinued. Review of Systems Cardiovascular: Cardiovascular: Reports no additional cardiovascular complaints Respiratory: Respiratory: Reports no additional respiratory complaints Gastrointestinal: Gastrointestinal: Reports no additional gastrointestinal complaints Genitourinary: Genitourinary: Reports no additional male genitourinary complaints Exam Narrative: Exam Narrative: General: WD/WN male in NAD Heart: normal S1 and S2; no rub Lungs: clear to ausc Abdomen: still mild TTP around ostomy; decreased bowel sounds Extremities: 1+ edema Skin: no rash Objective Data Vital Signs Vital Signs: Vital Signs - 24 hr 01/29/21 20:00 01/29/21 22:
--- NOTE | 2021-01-30 15:27 | PM.PNNEP ---
Progress Note: A&P Assessment and Plan (1) Acute kidney failure: Qualifiers: Acute renal failure type: unspecified Qualified Code(s): N17.9 - Acute kidney failure, unspecified Code(s): N17.9 - Acute kidney failure, unspecified Status: Acute Assessment and Plan: resolving thought to be secondary to obstruction on his one good kidney renal ultrasound demonstrates small right kidney and large left kidney with moderate hydro in the left kidney randolph catheter placement did not help much but placement of left ureteral stent did improved creatinine, almost down to baseline. supervisor intermediates solution to obstruction procedure and timing up to urology. (2) Stage 3b chronic kidney disease: Code(s): N18.32 - Chronic kidney disease, stage 3b Status: Chronic Assessment and Plan: baseline creatinine ~ 1.84mg/dl (as [facility] in early Jan 2021 [facility]) probably due to loss of nephron mass (small right kidney), HTN, and possible vascular disease (3) Partial small bowel obstruction: Code(s): K56.600 - Partial intestinal obstruction, unspecified as to cause Status: Acute Assessment and Plan: as noted by imaging done NG tube is out doing okay with clear liquid diet. advanced to full liquid. (4) CAD (coronary artery disease): Code(s): I25.10 - Atherosclerotic heart disease of [place] coronary artery without angina pectoris Status: Acute Assessment and Plan: no further chest pain at this time Cardiology following (5) H/O: HTN (hypertension): Code(s): Z86.79 - Personal history of other diseases of the circulatory system Status: Chronic Assessment and Plan: BP under reasonable control follow trend of hemodynamics (6) Normocytic anemia: Code(s): D64.9 - Anemia, unspecified Status: Acute Assessment and Plan: H/H low partly related to MARY/ARF and perhaps underlying CKD empirically on Epogen hb up to 8. (7) Diabetes mellitus: Qualifiers: Diabetes mellitus type: type 2 Diabetes mellitus alf insulin use: with alf use Diabetes mellitus complication status: without complication Qualified Code(s): E11.9 - Type 2 diabetes mellitus without complications; Z79.4 - 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 Code(s): E11.9 - Type 2 diabetes mellitus without complications Status: Chronic Assessment and Plan: follow Accu-Cheks on sliding-scale insulin Will continue to follow. Subjective Date/time seen: 01/30/21 15:27 Interval history: pt is feeling okay no cp or sob. megan clear liquid diet./ he was on IVFs before but these have been discontinued. Review of Systems Cardiovascular: Cardiovascular: Reports no additional cardiovascular complaints Respiratory: Respiratory: Reports no additional respiratory complaints Gastrointestinal: Gastrointestinal: Reports no additional gastrointestinal complaints Genitourinary: Genitourinary: Reports no additional male genitourinary complaints Exam Narrative: Exam Narrative: General: WD/WN male in NAD Heart: normal S1 and S2; no rub Lungs: clear to ausc Abdomen: still mild TTP around ostomy; decreased bowel sounds Extremities: 1+ edema Skin: no rash Objective Data Vital Signs Vital Signs: Vital Signs - 24 hr 01/29/21 20:00 01/29/21 22:00 01/29/21 22:22 Temperature 36.5 C Pulse Rate 66 66 Respiratory Rate 18 18 Blood Pressure 131/50 L Pulse Oximetry 96 01/30/21 05:47 01/30/21 08:20 01/30/21 14:00 Temperature 36.7 C 36.6 C Pulse Rate 60 60 60 Respiratory Rate 18 18 Blood Pressure 141/54 H 143/44 H Pulse Oximetry 100 97 Intake/Output Intake/Output: Intake & Output 01/27/21 01/28/21 01/29/21 01/30/21 23:59 23:59 23:59 23:59 Intake Total 2630 2660 2450 1850 Output Total 370 1550 1075 1925 Balance 2260 1110 1375 -75 Meds/Results Medications: Active Medicatio
--- NOTE | 2021-01-30 15:46 | PM.PNCARD ---
Progress Note: A&P Additional Plan follow-up visit in this 80-year-old man with: Coronary artery disease previous bypass grafting on 2 occasions and bioprosthetic aortic valve replacement. He had some evidence of acute coronary syndrome on admission to the hospital about 2 weeks ago. He also had acute renal failure with hydronephrosis and was not a candidate for angiography. Creatinine is now down to about 1.8 which is close to his baseline although he is now asymptomatic. Unfortunately he has a peristomal hernia that resulted in symptoms typical of a bowel obstruction last week. He is now wearing a corset of some sort that will compress this and hopefully keep that stable. There are no cardiac problems at this time clinically that require ongoing hospitalization. His cardiac follow-up in recent years has been with the physicians at the [facility]. We will follow him p.r.n. while he is in the hospital but for these reasons I do not anticipate arranging for follow-up in our office following discharge. French Wilson MD [facility] Subjective Date/time seen: Date of service:01/30/21 15:46 Interval history: Interval history: 80yo male with hx of CAD, h/o CABG and redo, ACS w/ peak trop 0.33, AVR and DM here for chest pain possibly ACS, diast CHF ARF 2nd hydronephrosis. S/P ureteral stent 01/19/2021 with improvement of renal fxn. Echo EF 55-60%, mild LVH, diast dysfxn, bioprosthetic AV OK, apical septum and apex hypokinetic. He had a catheterization in May of 2010 which showed severe aortic stenosis with occlusion of the LAD and RCA with a patent FIORE to the LAD and vein graft to the RCA. In July of 2010 he had a redo bypass with the SVG to OM and a bioprosthetic pericardial tissue valve in the aortic position. 01/30/2021: Patient is resting comfortably in bed. according to the chart his renal function has returned nearly to his baseline. Has not had any cardiovascular symptoms or concerns. According to the patient he remains in the hospital for a number of days to observe and make sure that his peristomal hernia does not become incarcerated. He is having his diet advanced is now on with sounds like full liquids. Patient was ambulating in the halls today without any problem Exam Narrative: Exam Narrative: sitting upright in a chair, alert and orient x3 breathing comfortably no apparent distress. Const: General: comfortable, no acute distress and anxious; No confusion Orientation/consciousness: No confusion Other: Sleeping on my arrival HENMT: General nose exam: Normal nares present and no epistaxis Mouth: Yes moist mucous membranes Eyes: Sclera: sclerae normal EOM: EOMs intact bilaterally Neck: Neck: supple and no JVD Chest: Other: No reproducible chest wall pain to palpation Resp: Effort & Inspection: normal respiratory effort Auscultation: rales (Rales in left base) Cardio: Rate: regular rate Rhythm: regular rhythm Heart sounds: Murmur heart sound present (2/6 LANIE upper sternal borders) Other: Good pedal pulses , no edema GI: Inspection: non-distended and other ( ostomy, abdominal hernia) Urinary Catheter: Urinary Catheter: patent and draining Skin: General skin exam: normal color and no rashes or lesions noted Neuro: General: No confusion Cranial nerves: Yes Normal hearing present Cognition (Neuro): normal cognition Speech: normal speech Other: . Extrem: General: normal to inspection, no edema and no pedal edema Psych: Mental Status: mental status grossly normal Affect: normal affect Objective Data Vital Signs Vital Signs: Vital Signs - 24 hr 01/29/21 20:00 01/29/21 22:00 01/29/21 22:22 Temperature 36.5 C Pulse Rate 66 66 Respiratory Rate 18 18 Blood Pressure 131/50 L Pulse Oximetry 96 01/30/21 05:47 01/30/21 08:20 01/30/21 14:00 Temperature 36.7 C 36.6 C Pulse Rate 60 60 60 Respiratory Rate 18 18 Blood Pressure 141/54 H 143/44 H Pulse Oximetry 100 97 I
--- NOTE | 2021-01-30 16:40 | PM.IMPN ---
Progress Note: A&P Assessment and Plan (1) Parastomal hernia: Code(s): K43.5 - Parastomal hernia without obstruction or gangrene Status: Acute Assessment and Plan: Reduced at bed side Binder in place Plan for elective repair at a later time (2) Partial small bowel obstruction: Code(s): K56.600 - Partial intestinal obstruction, unspecified as to cause Status: Acute Assessment and Plan: Resolved Re start clear liquids and advance as tolerated. Supportive care (3) Nausea & vomiting: Code(s): R11.2 - Nausea with vomiting, unspecified Status: Acute Assessment and Plan: Resolved Continue to monitor (4) Weakness: Code(s): R53.1 - Weakness Status: Acute Assessment and Plan: PT/OT (5) LBBB (left bundle branch block): Code(s): I44.7 - Left bundle-branch block, unspecified Status: Acute Assessment and Plan: Stable Chronic (6) Hydronephrosis, left: Code(s): N13.30 - Unspecified hydronephrosis Status: Acute Assessment and Plan: S/p stent placement (7) Acute kidney failure: Qualifiers: Acute renal failure type: unspecified Qualified Code(s): N17.9 - Acute kidney failure, unspecified Code(s): N17.9 - Acute kidney failure, unspecified Status: Acute Assessment and Plan: Bun/cr trending down Appreciate Nephrology note Daily BMP Subjective Date/time seen: 01/30/21 16:40 Patient states that he had a rough night after eating had a lot of n/v/reflux Review of Systems Review of Systems: Narrative: n/v/reflux. Constitutional: Comments: no fevers, no rigors, no chills. ENT: Comments: burning with reflux. Cardiovascular: Comments: no chest pain, no orthopnea, no leg swelling. Respiratory: Comments: no sob, no cough. Gastrointestinal: Comments: n/v/reflux Musculoskeletal: Comments: no muscle aches or pains Integumentary/Breasts: Comments: no rashes Neurologic: Comments: no sensory motor deficit Exam Narrative: Exam Narrative: Lying in bed Const: General: cooperative, comfortable, no acute distress and tired appearing Nutritional Appearance: average body habitus Orientation/consciousness: patient oriented x3 HENMT: Head: normal to inspection and normocephalic Ears: hearing grossly normal bilaterally General nose exam: Normal external nose present Face and sinus: normal facial exam Eyes: General: appearance normal, both eyes and all related structures Pupils: Equal, round and reactive pupils present EOM: EOMs intact bilaterally Neck: Neck: no lymphadenopathy, supple and no JVD Resp: Effort & Inspection: able to speak in complete sentences Auscultation: clear to auscultation bilaterally Cardio: Jugular venous distension: no JVD Rate: regular rate Rhythm: regular rhythm GI: Inspection: other (Colostomy bag in place, abdominal binder in place.) GI Palp: Yes Soft to palpation and Yes No hepatosplenomegaly present Skin: Rashes: no rashes Neuro: General: patient oriented x3 and CN's II-XI intact bilaterally Cranial nerves: Yes CN's II-XII intact bilaterally and Yes Equal, round and reactive pupils present Cognition (Neuro): normal cognition Speech: normal speech Gait exam (Neuro): Normal gait present Motor exam (neuro): 5/5 motor strength present throughout Extrem: General: normal to inspection and no pedal edema Objective Data Vital Signs Vital Signs: Vital Signs - 24 hr 01/29/21 20:00 01/29/21 22:00 01/29/21 22:22 Temperature 97.7 F Pulse Rate 66 66 Respiratory Rate 18 18 Blood Pressure 131/50 L Pulse Oximetry 96 01/30/21 05:47 01/30/21 08:20 01/30/21 14:00 Temperature 98.1 F 97.8 F Pulse Rate 60 60 60 Respiratory Rate 18 18 Blood Pressure 141/54 H 143/44 H Pulse Oximetry 100 97 01/30/21 15:00 Temperature Pulse Rate Respiratory Rate Blood Pressure 137/59 L Pulse Oximetry Intake/Output Intake/Output: Inta
[2021-01-30 17:36] LABS: Glucose Point of Care 207 (65-105)
[2021-01-30 20:29] VITALS: PULSE 65
[2021-01-30] MEDS: ATORVASTATIN 40 MG TABLET PO (20:29)
[2021-01-30 21:23] LABS: Glucose Point of Care 191 (65-105)
[2021-01-30 21:58] VITALS: BP 139/61; PULSE 64; RESP 18; TEMP 36.7; O2SAT 99
[2021-01-30] MEDS: ONDANSETRON INJ 4 MG/2 ML VIAL IV PUSH (22:13)
[2021-01-31] MEDS: ONDANSETRON INJ 4 MG/2 ML VIAL IV PUSH ×3 (00:37→08:55)
[2021-01-31 05:52] VITALS: BP 161/48; PULSE 62; RESP 16; TEMP 36.3; O2SAT 96
[2021-01-31 06:15] LABS: Hematocrit 24.6 % (42.0-52.0); Hemoglobin 8.1 g/dL (14.0-18.0); Mean Corpuscular HGB Conc 32.9 g/dl (32-36); Mean Corpuscular Hemoglobin 32.3 pg (26-34); Mean Platelet Volume 9.7 fl (7.4-10.4); Platelet Count Result 290 k/mm3 (150-375); Red Blood Count 2.51 M/mm3 (4.6-6.20); Red Cell Distribution Width 14.4 % (11.5-14.5); White Blood Count 10.3 K/mm3 (4.5-10.0)
[2021-01-31 06:27] LABS: Albumin Level 3.2 g/dL (3.5-5.1); Anion Gap 9 mmol/L (8-16); Blood Urea Nitrogen 17 mg/dL (9-20); Calcium 8.8 mg/dL (8.4-10.2); Carbon Dioxide 22 mmol/L (22-30); Chloride 107 mmol/L (98-107); Estimated CRCL calculation 31 ml/min; Estimated Glomerular Filt Rate 39; Glucose 170 mg/dL (75-110); Phosphorus 3.2 mg/dL (2.5-4.5); Potassium 3.8 mmol/L (3.4-5.0); Sodium 138 mmol/L (137-145)
[2021-01-31 09:41] LABS: Glucose Point of Care 174 (65-105)
[2021-01-31] MEDS: INSULIN DETEMIR 100 UNITS/ML 8 UNITS SUB-Q (10:38)
--- NOTE | 2021-01-31 11:15 | P.PNNP_ITS ---
Progress Note: A&P Assessment and Plan (1) Acute kidney failure: Qualifiers: Acute renal failure type: unspecified Qualified Code(s): N17.9 - Acute kidney failure, unspecified Code(s): N17.9 - Acute kidney failure, unspecified Status: Acute Assessment and Plan: * resolving * thought to be secondary to obstruction on his one good kidney * improved creatinine, about down to baseline. * termite helper solution to obstruction procedure and timing up to urology. (2) Stage 3b chronic kidney disease: Code(s): N18.32 - Chronic kidney disease, stage 3b Status: Chronic Assessment and Plan: * baseline creatinine ~ 1.84mg/dl (as [facility] Jan 2021 [facility]) * probably due to loss of nephron mass (small right kidney), HTN, and possible vascular disease (3) Partial small bowel obstruction: Code(s): K56.600 - Partial intestinal obstruction, unspecified as to cause Status: Acute Assessment and Plan: * as noted by imaging done * NG tube is out * NPO now. nausea resumed yesterday evening. * surgery on the case (4) CAD (coronary artery disease): Code(s): I25.10 - Atherosclerotic heart disease of [place] coronary artery without angina pectoris Status: Acute Assessment and Plan: * no further chest pain at this time * Cardiology following (5) H/O: HTN (hypertension): Code(s): Z86.79 - Personal history of other diseases of the circulatory system Status: Chronic Assessment and Plan: * BP under reasonable control * follow trend of hemodynamics (6) Normocytic anemia: Code(s): D64.9 - Anemia, unspecified Status: Acute Assessment and Plan: * H/H low * partly related to MARY/ARF and perhaps underlying CKD * empirically on Epogen * hb up to 8. (7) Diabetes mellitus: Qualifiers: Diabetes mellitus type: type 2 Diabetes mellitus termite helper insulin use: with termite helper use Diabetes mellitus complication status: without complication Qualified Code(s): E11.9 - Type 2 diabetes mellitus without complications; Z79.4 - USP (current) use of insulin Code(s): E11.9 - Type 2 diabetes mellitus without complications Status: Chronic Assessment and Plan: * follow Accu-Cheks * on sliding-scale insulin Will continue to follow. Subjective Date/time seen: 01/31/21 11:16 Interval history: pt is feeling okay no cp or sob. nauseated today and has very dry mouth. the ostomyu seems to be producing stool. Exam Narrative: Exam Narrative: General: WD/WN male in NAD Heart: normal S1 and S2; no rub Lungs: clear to ausc Abdomen: still mild TTP around ostomy; decreased bowel sounds Extremities: 1+ edema Skin: no rash or sq nodules Objective Data Vital Signs Vital Signs: Vital Signs - 24 hr 01/30/21 14:00 01/30/21 15:00 01/30/21 20:29 Temperature 36.6 C Pulse Rate 60 65 Respiratory Rate 18 Blood Pressure 143/44 H 137/59 L Pulse Oximetry 97 01/30/21 21:58 01/31/21 05:52 Temperature 36.7 C 36.3 C L Pulse Rate 64 62 Respiratory Rate 18 16 Blood Pressure 139/61 161/48 H Pulse Oximetry 99 96 Intake/Output Intake/Output: Intake & Output 01/28/21 01/29/21 01/30/21 01/31/21 23:59 23:59 23:59
--- NOTE | 2021-01-31 11:15 | PM.PNNEP ---
Progress Note: A&P Assessment and Plan (1) Acute kidney failure: Qualifiers: Acute renal failure type: unspecified Qualified Code(s): N17.9 - Acute kidney failure, unspecified Code(s): N17.9 - Acute kidney failure, unspecified Status: Acute Assessment and Plan: resolving thought to be secondary to obstruction on his one good kidney improved creatinine, about down to baseline. photocomposing machine operator solution to obstruction procedure and timing up to urology. (2) Stage 3b chronic kidney disease: Code(s): N18.32 - Chronic kidney disease, stage 3b Status: Chronic Assessment and Plan: baseline creatinine ~ 1.84mg/dl (as [facility] in [facility] Jan 2021 [facility]) probably due to loss of nephron mass (small right kidney), HTN, and possible vascular disease (3) Partial small bowel obstruction: Code(s): K56.600 - Partial intestinal obstruction, unspecified as to cause Status: Acute Assessment and Plan: as noted by imaging done NG tube is out NPO now. nausea resumed yesterday evening. surgery on the case (4) CAD (coronary artery disease): Code(s): I25.10 - Atherosclerotic heart disease of [place] coronary artery without angina pectoris Status: Acute Assessment and Plan: no further chest pain at this time Cardiology following (5) H/O: HTN (hypertension): Code(s): Z86.79 - Personal history of other diseases of the circulatory system Status: Chronic Assessment and Plan: BP under reasonable control follow trend of hemodynamics (6) Normocytic anemia: Code(s): D64.9 - Anemia, unspecified Status: Acute Assessment and Plan: H/H low partly related to MARY/ARF and perhaps underlying CKD empirically on Epogen hb up to 8. (7) Diabetes mellitus: Qualifiers: Diabetes mellitus type: type 2 Diabetes mellitus photocomposing machine operator insulin use: with photocomposing machine operator use Diabetes mellitus complication status: without complication Qualified Code(s): E11.9 - Type 2 diabetes mellitus without complications; Z79.4 - cardiac cath technician (current) use of insulin Code(s): E11.9 - Type 2 diabetes mellitus without complications Status: Chronic Assessment and Plan: follow Accu-Cheks on sliding-scale insulin Will continue to follow. Subjective Date/time seen: 01/31/21 11:16 Interval history: pt is feeling okay no cp or sob. nauseated today and has very dry mouth. the ostomyu seems to be producing stool. Exam Narrative: Exam Narrative: General: WD/WN male in NAD Heart: normal S1 and S2; no rub Lungs: clear to ausc Abdomen: still mild TTP around ostomy; decreased bowel sounds Extremities: 1+ edema Skin: no rash or sq nodules Objective Data Vital Signs Vital Signs: Vital Signs - 24 hr 01/30/21 14:00 01/30/21 15:00 01/30/21 20:29 Temperature 36.6 C Pulse Rate 60 65 Respiratory Rate 18 Blood Pressure 143/44 H 137/59 L Pulse Oximetry 97 01/30/21 21:58 01/31/21 05:52 Temperature 36.7 C 36.3 C L Pulse Rate 64 62 Respiratory Rate 18 16 Blood Pressure 139/61 161/48 H Pulse Oximetry 99 96 Intake/Output Intake/Output: Intake & Output 01/28/21 01/29/21 01/30/21 01/31/21 23:59 23:59 23:59 23:59 Intake Total 2660 2450 2640 100 Output Total 1550 1075 2675 350 Balance 1110 1375 -35 -250 Meds/Results Medications: Active Medications Generic Name Dose Route Start Last Admin Trade Name Freq PRN Reason Stop Dose Admin Acetaminophen 650 mg 01/17/21 20:44 01/21/21 22:02 Acetaminophen 325 Mg Tablet PO 650 mg Q4H PRN Administration Mild Pain (1-3) or Fever Aspirin 81 mg 01/21/21 09:00 01/30/21 08:19 Aspirin 81 Mg Enteric Tablet PO 81 mg DAILY GIOVANY Administration Atorvastatin Calcium 40 mg 01/18/21 21:00 01/30/21 20:29 Atorvastatin 40 Mg Tablet PO 40 mg HS GIOVANY Administration Clopidogrel Bisulfate 75 mg 01/21/21 09:00
[2021-01-31 14:00] VITALS: BP 148/53; PULSE 64; RESP 20; TEMP 36.9; O2SAT 95
[2021-01-31] MEDS: TAMSULOSIN HCL 0.4 MG CAPSULE PO (16:04)
[2021-01-31] MEDS: CLOPIDOGREL BISULFATE 75 MG TABLET PO (16:04)
[2021-01-31] MEDS: ISOSORBIDE MONONITRATE 60 MG TAB.ER.24H PO (16:04)
[2021-01-31] MEDS: ASPIRIN 81 MG ENTERIC TABLET PO (16:04)
[2021-01-31 16:49] LABS: Glucose Point of Care 155 (65-105)
[2021-01-31 16:57] LABS: Glucose Point of Care 156 (65-105)
[2021-01-31] MEDS: MAG HYDROX/AL HYDROX/SIMETH 30 ML UDC PO ×2 (17:19→22:19)
[2021-01-31 20:00] VITALS: BP 117/51; PULSE 80; RESP 16; TEMP 37; O2SAT 94
[2021-01-31 20:42] VITALS: PULSE 80
[2021-01-31] MEDS: METOPROLOL TARTRATE 25 MG TABLET 75 MG PO (20:42)
[2021-01-31] MEDS: ATORVASTATIN 40 MG TABLET PO (20:43)
[2021-01-31 20:54] LABS: Glucose Point of Care 178 (65-105)
[2021-02-01] MEDS: ONDANSETRON INJ 4 MG/2 ML VIAL IV PUSH ×2 (00:48→08:47)
[2021-02-01] MEDS: PROMETHAZINE HCL 25 MG/ML AMPUL IM (02:31)
[2021-02-01] MEDS: LORazepam INJ (*CRX) 2 MG/ML VIAL 0.5 MG IV PUSH (04:40)
[2021-02-01 06:00] VITALS: BP 134/59; PULSE 69; RESP 16; TEMP 36.4; O2SAT 93
[2021-02-01] MEDS: EPOETIN ALFA-EPBX 10,000 UNITS/ML VIAL 10000 UNITS SUB-Q (08:54)
[2021-02-01 09:10] LABS: Glucose Point of Care 204 (65-105)
[2021-02-01 12:04] LABS: Glucose Point of Care 191 (65-105)
[2021-02-01 14:00] VITALS: BP 135/51; PULSE 71; RESP 16; TEMP 36.4; O2SAT 96
--- NOTE | 2021-02-01 14:29 | PM.CNGS ---
Assessment and Plan Assessment and plan (1) Parastomal hernia: Onset Date: ~01/28/21 Code(s): K43.5 - Parastomal hernia without obstruction or gangrene Status: Acute Assessment and Plan: Apparently this has occasionally been leading to partial small-bowel obstruction. However, today the hernia seems to be fully reduced. (2) Partial small bowel obstruction: Onset Date: ~02/01/21 Code(s): K56.600 - Partial intestinal obstruction, unspecified as to cause Status: Acute Assessment and Plan: Abdominal films last week showed signs of partial small-bowel obstruction this seemed to resolve clinically. Patient then began having some nausea and vomiting this morning. Repeat exam today shows a few dilated air-filled loops of small bowel which could indicate partial obstruction. I have reduced the parastomal hernia and we will await further results. Repeat obstructive series in the a.m. and repeat labs in a.m.. In view of current situation will restart IV fluids overnight and keep patient NPO except for ice chips. (3) Stage 3b chronic kidney disease: Onset Date: Unknown Code(s): N18.32 - Chronic kidney disease, stage 3b Status: Chronic Assessment and Plan: As per primary service (4) Elevated troponin: Onset Date: ~01/26/21 Code(s): R77.8 - Other specified abnormalities of plasma proteins Status: Acute Assessment and Plan: See primary service and cardiology notes. Because of patient's recent heart issues he is not a good candidate for surgical intervention. Current plan will be to try to reduce his hernia and see if his nausea and vomiting will resolve. History of Present Illness Consult details Consult date: 02/01/21 Requesting physician: García Alcantara MD Narrative: Patient is an 80 y/o white male known to our service from previous consultation earlier this admission. I was called today wall entertainment production professional because the patient has developed vomiting again. Kathleen the patient's nurse reports that he felt somewhat distended this morning but want to try liquids. A little after trying some water and juice this morning he began vomiting. They have not specifically noted this increased bulging at his known parastomal hernia and he has been having good fairly liquid brown stool come out the ostomy throughout the day. In the pastthe patient developed nausea and vomiting last week. He was then found to have evidence of a partial or early SBO secondary to a parastomal herniaby cliical exam and plain Xrays. At that time imaging was reviewed and discussed with the patient and his in detail. the parastomal hernia was able to be fully reduced and his abdominal pain resolved. He did still have some expected soreness around the colostomy. If this remains soft and reducible, then we will be able to avoid surgery. Abdominal x-ray ordered for tomorrow. The wound care nurses have seen the patient and fit him for an abdominal binder around the colostomy to help try and prevent this in the future. HE was wearing this when I came tos see the pt today. If this resolves and he is able to tolerate a diet, then we will plan to have the patient follow-up with Dr. Cortez to discuss options for hernia repair once medically stable as an out patient since he saw him about this first last week. We will continue to follow along. Review of Systems Constitutional: Constitutional: Reports as per HPI and Denies headache(s) Comments: Nurses report patient was wanting to try liquids this morning but then vomited after trying them. Eyes: Eyes: Denies loss of vision and Denies eye pain ENT: Reports Normal hearing present, Denies change in voice, Denies dizziness and Denies headache(s) Cardiovascular: Cardiovascular: Denies chest pain and Denies dyspnea Respiratory: Respiratory: Denies dyspnea and Denies wheezing Gastrointestinal: Gastrointestinal: Reports as per HPI Comments: Nurses haily
[2021-02-01] MEDS: LACTATED RINGERS 1,000 ML 75 ML IV CONT (15:33)
--- NOTE | 2021-02-01 17:01 | PM.IMPN ---
Progress Note: A&P Assessment and Plan (1) Parastomal hernia: Onset Date: ~01/28/21 Code(s): K43.5 - Parastomal hernia without obstruction or gangrene Status: Acute Assessment and Plan: Reduced at bedside Abdominal binder in place (2) Partial small bowel obstruction: Onset Date: ~02/01/21 Code(s): K56.600 - Partial intestinal obstruction, unspecified as to cause Status: Acute Assessment and Plan: Appears resolved on KUB Gas throughout though NPO Follow surgery recs Supportive care Encourage activity Incentive spirometry (3) Nausea & vomiting: Code(s): R11.2 - Nausea with vomiting, unspecified Status: Acute Assessment and Plan: NPO Supportive care (4) LBBB (left bundle branch block): Code(s): I44.7 - Left bundle-branch block, unspecified Status: Acute Assessment and Plan: Stabel (5) Hydronephrosis, left: Code(s): N13.30 - Unspecified hydronephrosis Status: Acute Assessment and Plan: S/p stent placement Continue to monitor (6) CAD (coronary artery disease): Code(s): I25.10 - Atherosclerotic heart disease of [place] coronary artery without angina pectoris Status: Acute Assessment and Plan: Stable Continue to monitor (7) Acute kidney failure: Qualifiers: Acute renal failure type: unspecified Qualified Code(s): N17.9 - Acute kidney failure, unspecified Code(s): N17.9 - Acute kidney failure, unspecified Status: Acute Assessment and Plan: Resolved Bun/Cr at patient's baseline. Subjective Date/time seen: 02/01/21 17:01 Not feeling well Review of Systems Review of Systems: Narrative: Started on a clear liquid diet but having a lot of abdominal discomfort, n/v Constitutional: Comments: no fevers, no rigors, no chills. ENT: Comments: no nasal congestion, no cough. Cardiovascular: Comments: no chest pain, no pnd, n o orthopnea. Respiratory: Comments: no cough, no sputum production. Gastrointestinal: Comments: abdominal discomfort, n/v after started diet clear/full liquids Musculoskeletal: Comments: no joint pain. Neurologic: Comments: no sensory motor deficit Exam Narrative: Exam Narrative: Sitting in chair Const: General: ill appearing and tired appearing Nutritional Appearance: average body habitus Orientation/consciousness: patient oriented x3 HENMT: Head: normal to inspection and normocephalic Ears: hearing grossly normal bilaterally General nose exam: Normal external nose present Face and sinus: normal facial exam Eyes: General: appearance normal, both eyes and all related structures Pupils: Equal, round and reactive pupils present EOM: EOMs intact bilaterally Neck: Neck: no lymphadenopathy, supple and no JVD Resp: Effort & Inspection: able to speak in complete sentences Auscultation: clear to auscultation bilaterally Cardio: Rate: regular rate Rhythm: regular rhythm GI: Inspection: distended GI Palp: Yes No hepatosplenomegaly present Percussion: Yes tympanic to percussion Skin: Rashes: no rashes Neuro: General: patient oriented x3 and CN's II-XI intact bilaterally Cranial nerves: Yes CN's II-XII intact bilaterally and Yes Equal, round and reactive pupils present Cognition (Neuro): normal cognition Motor exam (neuro): 5/5 motor strength present throughout Extrem: General: no pedal edema Objective Data Vital Signs Vital Signs: Vital Signs - 24 hr 01/31/21 20:00 01/31/21 20:42 02/01/21 06:00 Temperature 98.6 F 97.6 F Pulse Rate 80 80 69 Respiratory Rate 16 16 Blood Pressure 117/51 L 134/59 L Pulse Oximetry 94 93 02/01/21 14:00 Temperature 97.5 F L Pulse Rate 71 Respiratory Rate 16 Blood Pressure 135/51 L Pulse Oximetry 96 Intake/Output Intake/Output: Intake & Output 01/29/21 01/30/21 01/31/21 02/01/21 23:59 23:59 23:59 23:59 Intake Total 2450 2640 400 200 Output Total 0410 8739 2758
[2021-02-01 17:15] LABS: Basophils Percent Auto 0.3 % (0.2-1.2); Eosinophils Absolute Auto 0.1 K/mm3 (0-0.3); Eosinophils Percent Auto 0.8 % (0-4.4); Hematocrit 28.1 % (42.0-52.0); Hemoglobin 9.1 g/dL (14.0-18.0); Immature Granulocyte Absolute 0.06 K/mm3 (0.00-0.031); Immature Granulocyte Percent A 0.5 % (0-0.5); Lymphocytes Absolute Auto 1.82 K/mm3 (0.9-3.2); Lymphocytes Percent Auto 16.3 % (18.3-44.2); Mean Corpuscular HGB Conc 32.4 g/dl (32-36); Mean Corpuscular Volume 98.9 fl (80-100); Mean Platelet Volume 9.1 fl (7.4-10.4); Monocytes Absolute Auto 1.8 K/mm3 (0.1-0.6); Monocytes Percent Auto 16.4 % (2.6-8.5); Neutrophils Absolute Auto 7.3 K/mm3 (1.3-6.7); Neutrophils Percent Auto 65.7 % (45.5-73.1); Platelet Count Result 290 k/mm3 (150-375); Red Blood Count 2.84 M/mm3 (4.6-6.20); White Blood Count 11.2 K/mm3 (4.5-10.0)
[2021-02-01 17:28] LABS: Anion Gap 6 mmol/L (8-16); Blood Urea Nitrogen 23 mg/dL (9-20); Calcium 8.9 mg/dL (8.4-10.2); Carbon Dioxide 28 mmol/L (22-30); Chloride 104 mmol/L (98-107); Estimated CRCL calculation 29 ml/min; Estimated Glomerular Filt Rate 30; Glucose 168 mg/dL (75-110); Magnesium 1.5 mg/dL (1.6-2.3); Potassium 3.8 mmol/L (3.4-5.0); Sodium 138 mmol/L (137-145)
[2021-02-01 17:36] LABS: Glucose Point of Care 166 (65-105)
--- NOTE | 2021-02-01 17:52 | P.PNNP_ITS ---
Progress Note: A&P Assessment and Plan (1) Acute kidney failure: Qualifiers: Acute renal failure type: unspecified Qualified Code(s): N17.9 - Acute kidney failure, unspecified Code(s): N17.9 - Acute kidney failure, unspecified Status: Acute Assessment and Plan: * Creatinine is up a little bit today. * This could be pre renal or could be related to his GI issue. * He is getting some IV fluids. 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 nausea resumed yesterday evening. * surgery on the case (4) CAD (coronary artery disease): Code(s): I25.10 - Atherosclerotic heart disease of [place] coronary artery without angina pectoris Status: Acute Assessment and Plan: * no further chest pain at this time * Cardiology following (5) H/O: HTN (hypertension): Code(s): Z86.79 - Personal history of other diseases of the circulatory system Status: Chronic Assessment and Plan: * BP under reasonable control * follow trend of hemodynamics (6) Normocytic anemia: Code(s): D64.9 - Anemia, unspecified Status: Acute Assessment and Plan: hemoglobin has improved to above 9 today. * partly related to MARY/ARF and perhaps underlying CKD * empirically on Epogen * (7) Diabetes mellitus: Qualifiers: Diabetes mellitus type: type 2 Diabetes mellitus longterm insulin use: with longterm use Diabetes mellitus complication status: without complication Qualified Code(s): E11.9 - Type 2 diabetes mellitus without complications; Z79.4 - buttermaker helper (current) use of insulin Code(s): E11.9 - Type 2 diabetes mellitus without complications Status: Chronic Assessment and Plan: * follow Accu-Cheks * on sliding-scale insulin Will continue to follow. Subjective Date/time seen: 02/01/21 17:52 Interval history: pt is feeling okay resting comfortably in bed. Still NPO. Getting some IV fluids. Exam Narrative: Exam Narrative: General: WD/WN male in NAD Heart: normal S1 and S2; no rub Lungs: clear to ausc Abdomen: still mild TTP around ostomy; decreased bowel sounds . Not very tender. A little distended. Extremities: 1+ edema Skin: no rash or sq nodules Objective Data Vital Signs Vital Signs: Vital Signs - 24 hr 01/31/21 20:00 01/31/21 20:42 02/01/21 06:00 Temperature 37.0 C 36.4 C Pulse Rate 80 80 69 Respiratory Rate 16 16 Blood Pressure 117/51 L 134/59 L Pulse Oximetry 94 93 02/01/21 14:00 Temperature 36.4 C L Pulse Rate 71 Respiratory Rate 16 Blood Pressure 135/51 L Pulse Oximetry 96 Intake/Output Intake/Output: Intake & Output 01/29/21 01/30/21 01/31/2102/01
--- NOTE | 2021-02-01 17:52 | PM.PNNEP ---
Progress Note: A&P Assessment and Plan (1) Acute kidney failure: Qualifiers: Acute renal failure type: unspecified Qualified Code(s): N17.9 - Acute kidney failure, unspecified Code(s): N17.9 - Acute kidney failure, unspecified Status: Acute Assessment and Plan: Creatinine is up a little bit today. This could be pre renal or could be related to his GI issue. He is getting some IV fluids. 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 nausea resumed yesterday evening. surgery on the case (4) CAD (coronary artery disease): Code(s): I25.10 - Atherosclerotic heart disease of [place] coronary artery without angina pectoris Status: Acute Assessment and Plan: no further chest pain at this time Cardiology following (5) H/O: HTN (hypertension): Code(s): Z86.79 - Personal history of other diseases of the circulatory system Status: Chronic Assessment and Plan: BP under reasonable control follow trend of hemodynamics (6) Normocytic anemia: Code(s): D64.9 - Anemia, unspecified Status: Acute Assessment and Plan: hemoglobin has improved to above 9 today. partly related to MARY/ARF and perhaps underlying CKD empirically on Epogen (7) Diabetes mellitus: Qualifiers: Diabetes mellitus type: type 2 Diabetes mellitus rewind operator insulin use: with chcf use Diabetes mellitus complication status: without complication Qualified Code(s): E11.9 - Type 2 diabetes mellitus without complications; Z79.4 - foot orthopedist (current) use of insulin Code(s): E11.9 - Type 2 diabetes mellitus without complications Status: Chronic Assessment and Plan: follow Accu-Cheks on sliding-scale insulin Will continue to follow. Subjective Date/time seen: 02/01/21 17:52 Interval history: pt is feeling okay resting comfortably in bed. Still NPO. Getting some IV fluids. Exam Narrative: Exam Narrative: General: WD/WN male in NAD Heart: normal S1 and S2; no rub Lungs: clear to ausc Abdomen: still mild TTP around ostomy; decreased bowel sounds . Not very tender. A little distended. Extremities: 1+ edema Skin: no rash or sq nodules Objective Data Vital Signs Vital Signs: Vital Signs - 24 hr 01/31/21 20:00 01/31/21 20:42 02/01/21 06:00 Temperature 37.0 C 36.4 C Pulse Rate 80 80 69 Respiratory Rate 16 16 Blood Pressure 117/51 L 134/59 L Pulse Oximetry 94 93 02/01/21 14:00 Temperature 36.4 C L Pulse Rate 71 Respiratory Rate 16 Blood Pressure 135/51 L Pulse Oximetry 96 Intake/Output Intake/Output: Intake & Output 01/29/21 01/30/21 01/31/21 02/01/21 23:59 23:59 23:59 23:59 Intake Total 2450 2640 400 200 Output Total 1075 2675 1375 800 Balance 1375 -35 -975 -600 Meds/Results Medications: Active Medications Generic Name Dose Route Start Last Admin Trade Name Freq PRN Reason Stop Dose Admin Acetaminophen 650 mg 01/17/21 20:44 01/21/21 22:02 Acetaminophen 325 Mg Tablet PO 650 mg Q4H PRN Administration Mild Pain (1-3) or Fever Al Hydrox/Mg Hydrox/Simethicone 30 ml 01/31/21 15:50 01/31/21 22:19 Mag Hydrox/Al Hydrox/Simeth 30 Ml Udc PO 30 ml Q6H PRN Administration Indigestion Aspirin 81 mg 01/21/21 09:00 01/31/21 16:04 Aspirin 81 Mg Enteric Tablet PO 81
[2021-02-01 21:00] LABS: Glucose Point of Care 146 (65-105)
[2021-02-01 22:00] VITALS: BP 138/52; PULSE 72; RESP 16; TEMP 37.1; O2SAT 96
[2021-02-02] MEDS: LACTATED RINGERS 1,000 ML 75 ML IV CONT (05:30)
[2021-02-02 06:00] VITALS: BP 132/65; PULSE 49; RESP 16; TEMP 37; O2SAT 94
[2021-02-02 06:43] LABS: Albumin Level 3.1 g/dL (3.5-5.1); Anion Gap 5 mmol/L (8-16); Blood Urea Nitrogen 23 mg/dL (9-20); Calcium 8.5 mg/dL (8.4-10.2); Carbon Dioxide 28 mmol/L (22-30); Chloride 107 mmol/L (98-107); Estimated CRCL calculation 31 ml/min; Estimated Glomerular Filt Rate 32; Glucose 133 mg/dL (75-110); Phosphorus 2.5 mg/dL (2.5-4.5); Potassium 3.4 mmol/L (3.4-5.0); Sodium 140 mmol/L (137-145)
[2021-02-02 08:11] LABS: Glucose Point of Care 130 (65-105)
--- NOTE | 2021-02-02 10:59 | P.PNNP_ITS ---
Progress Note: A&P Assessment and Plan (1) Acute kidney failure: Qualifiers: Acute renal failure type: unspecified Qualified Code(s): N17.9 - Acute kidney failure, unspecified Code(s): N17.9 - Acute kidney failure, unspecified Status: Acute Assessment and Plan: * Creatinine is back down again to 2.0.. * Variability of creatinine is probably related to fluid status. * Will continue to follow this going forward. 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 (3) Partial small bowel obstruction: Onset Date: ~02/01/21 Code(s): K56.600 - Partial intestinal obstruction, unspecified as to cause Status: Acute Assessment and Plan: * as noted by imaging done * NG tube is out * NPO now. * He has some bowel sounds and he says that he has some stool per colostomy however not much gas. * surgery on the case (4) CAD (coronary artery disease): Code(s): I25.10 - Atherosclerotic heart disease of [place] coronary artery without angina pectoris Status: Acute Assessment and Plan: * no further chest pain at this time * Cardiology following (5) H/O: HTN (hypertension): Code(s): Z86.79 - Personal history of other diseases of the circulatory system Status: Chronic Assessment and Plan: * BP under reasonable control * follow trend of hemodynamics (6) Normocytic anemia: Code(s): D64.9 - Anemia, unspecified Status: Acute Assessment and Plan: hemoglobin has improved to above 9 today. * partly related to MARY/ARF and perhaps underlying CKD * on Epogen * Check CBC tomorrow (7) Diabetes mellitus: Qualifiers: Diabetes mellitus type: type 2 Diabetes mellitus intermediate project manager insulin use: with intermediate project manager use Diabetes mellitus complication status: without complication Qualified Code(s): E11.9 - Type 2 diabetes mellitus without complications; Z79.4 - intermediate project manager (current) use of insulin Code(s): E11.9 - Type 2 diabetes mellitus without complications Status: Chronic Assessment and Plan: * follow Accu-Cheks * on sliding-scale insulin Subjective Date/time seen: 02/02/21 10:59 Interval history: pt is feeling okay resting comfortably in bed. Still NPO. Getting some IV fluids. No shortness of breath. Exam Narrative: Exam Narrative: General: WD/WN male in NAD Heart: normal S1 and S2; no rub or gallop Lungs: clear bilaterally Abdomen: still mild TTP around ostomy; decreased bowel sounds . Not very tender. A little distended. Extremities: 1+ edema Skin: no rash or sq nodules Objective Data Vital Signs Vital Signs: Vital Signs - 24 hr 02/01/21 14:00 02/01/21 22:00 02/02/21 06:00 Temperature 36.4 C L 37.1 C 37.0 C Pulse Rate 71 72 49 L Respiratory Rate 16 16 16 Blood Pressure 135/51 L 138/52 L 132/65 Pulse Oximetry 96 96 94 Intake/Output Intake/Output: Intake & Output 01/30/21 01/31/21 02/01/21 02/02/21 23:59 23:59 23:59 23:59 Intake Total
--- NOTE | 2021-02-02 10:59 | PM.PNNEP ---
Progress Note: A&P Assessment and Plan (1) Acute kidney failure: Qualifiers: Acute renal failure type: unspecified Qualified Code(s): N17.9 - Acute kidney failure, unspecified Code(s): N17.9 - Acute kidney failure, unspecified Status: Acute Assessment and Plan: Creatinine is back down again to 2.0.. Variability of creatinine is probably related to fluid status. Will continue to follow this going forward. 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 (3) Partial small bowel obstruction: Onset Date: ~02/01/21 Code(s): K56.600 - Partial intestinal obstruction, unspecified as to cause Status: Acute Assessment and Plan: as noted by imaging done NG tube is out NPO now. He has some bowel sounds and he says that he has some stool per colostomy however not much gas. surgery on the case (4) CAD (coronary artery disease): Code(s): I25.10 - Atherosclerotic heart disease of [place] coronary artery without angina pectoris Status: Acute Assessment and Plan: no further chest pain at this time Cardiology following (5) H/O: HTN (hypertension): Code(s): Z86.79 - Personal history of other diseases of the circulatory system Status: Chronic Assessment and Plan: BP under reasonable control follow trend of hemodynamics (6) Normocytic anemia: Code(s): D64.9 - Anemia, unspecified Status: Acute Assessment and Plan: hemoglobin has improved to above 9 today. partly related to MARY/ARF and perhaps underlying CKD on Epogen Check CBC tomorrow (7) Diabetes mellitus: Qualifiers: Diabetes mellitus type: type 2 Diabetes mellitus jail insulin use: with terminal manager use Diabetes mellitus complication status: without complication Qualified Code(s): E11.9 - Type 2 diabetes mellitus without complications; Z79.4 - custodial (current) use of insulin Code(s): E11.9 - Type 2 diabetes mellitus without complications Status: Chronic Assessment and Plan: follow Accu-Cheks on sliding-scale insulin Subjective Date/time seen: 02/02/21 10:59 Interval history: pt is feeling okay resting comfortably in bed. Still NPO. Getting some IV fluids. No shortness of breath. Exam Narrative: Exam Narrative: General: WD/WN male in NAD Heart: normal S1 and S2; no rub or gallop Lungs: clear bilaterally Abdomen: still mild TTP around ostomy; decreased bowel sounds . Not very tender. A little distended. Extremities: 1+ edema Skin: no rash or sq nodules Objective Data Vital Signs Vital Signs: Vital Signs - 24 hr 02/01/21 14:00 02/01/21 22:00 02/02/21 06:00 Temperature 36.4 C L 37.1 C 37.0 C Pulse Rate 71 72 49 L Respiratory Rate 16 16 16 Blood Pressure 135/51 L 138/52 L 132/65 Pulse Oximetry 96 96 94 Intake/Output Intake/Output: Intake & Output 01/30/21 01/31/21 02/01/21 02/02/21 23:59 23:59 23:59 23:59 Intake Total 2640 216 320 5306 Output Total 2675 1375 1250 100 Balance -35 -975 -1050 900 Meds/Results Medications: Active Medications Generic Name Dose Route Start Last Admin Trade Name Freq PRN Reason Stop Dose Admin Acetaminophen 650 mg 01/17/21 20:44 01/21/21 22:02 Acetaminophen 325 Mg Tablet PO 650 mg Q4H PRN Administration Mild Pain (1-3) or Fever Al Hydrox/Mg Hydrox/Simethicone 30 ml 01/31/21 15:50 01/31/21 22:19 Mag Hydrox/Al Hydrox/Simeth 30 Ml Udc PO 30 ml Q6H PRN Administration Indigestion Aspirin 81 mg 01/21/21 09:00 02/01/21 18:08 Aspirin 81 Mg Enteric Tablet PO
--- NOTE | 2021-02-02 11:05 | PCNFU ---
Nutrition Follow-Up Complete: Suboptimal oral intake related to partial small bowel obstruction as evidenced by NPO/clear liquid diet x 5 days. Goal: Patient to meet estimated nutritional needs. Progressing towards goal. We will continue current goal. Pt current nutrition is NPO. Last recorded weight is 88 kg,down from, 93.4 kg. Bowel Motility:+BM reported 3/2, colostomy. Labs Reviewed:Alb 3.1,BUN 23,Glu 133 Meds Noted:Justus Tavarez,LR. Additional Notes: Spoke with nursing today. Patient is NPO for SBFT today. NPO x 3 days with plans to advance diet as tolerated per MD orders. Monitoring: weight, labs,oral intake every 3 days.
--- NOTE | 2021-02-02 11:43 | PM.PNGS ---
Progress Note: A&P Assessment and Plan (1) Partial small bowel obstruction: Onset Date: ~02/01/21 Code(s): K56.600 - Partial intestinal obstruction, unspecified as to cause Status: Acute Assessment and Plan: Seems to have intermittent issues with a possible partial SBO related to his large parastomal hernia, which is soft and reducible on exam today. Abdominal films again show some moderately dilated small bowel. He is showing signs of clinical improvement and is having good stool output from his colostomy. Will allow him to have clear liquids today. Repeat abdominal films tomorrow. Encouraged increased ambulation and continue to wear his abdominal binder with activity. (2) Parastomal hernia: Onset Date: ~01/28/21 Code(s): K43.5 - Parastomal hernia without obstruction or gangrene Status: Acute Assessment and Plan: Soft and reducible again today. Seems to be causing intermittent, at least, partial small bowel obstructions. Will continue with conservative measures to try and avoid proceeding with more urgent surgical hernia repair due to his recent cardiac issues. Continue abdominal binder. See plan above. (3) Stage 3b chronic kidney disease: Onset Date: Unknown Code(s): N18.32 - Chronic kidney disease, stage 3b Status: Chronic Assessment and Plan: As per primary service (4) Elevated troponin: Onset Date: ~01/26/21 Code(s): R77.8 - Other specified abnormalities of plasma proteins Status: Acute Assessment and Plan: Due to the recent cardiac issues, he is not a good candidate for surgical repair. Management per primary service and Cardiology. Additional Plan I discussed the plan of care with Dr. Mujica. Subjective Subjective Date/Time Seen: 02/02/21 11:43 Patient reports: feels better, pain is less and bowel movement (+ostomy output) Interval history: patient reports feeling much better today. No further vomiting through the night or into today. He reports feeling some mild intermittent nausea, but significant improvement. Still has some slight abdominal pain around the parastomal hernia, but no other areas. He denies any other complaints at this time. Large amount of stool output in bag on my exam. Review of Systems Review of Systems: All systems reviewed & are unremarkable except as noted in HPI and below Exam Const: General: comfortable, no acute distress, alert and awake Orientation/consciousness: patient oriented x3 GI: Inspection: non-distended GI Palp: Yes Soft to palpation, Yes Tenderness to palpation present (GI) (mildly tender at parastomal hernia), No Guarding due to palpation present (GI) and Yes Hernia present (soft reducible parastomal hernia) Auscultation: normal bowel sounds Other: Left sided colostomy functioning well with liquid stool output in bag. Skin: General skin exam: normal color Neuro: General: moves all extremities and no focal motor deficits Extrem: General: no clubbing, cyanosis or edema and no calf tenderness Psych: Appearance: grossly normal Mental Status: mental status grossly normal Insight: Good insight present (Psych) Judgement: Good judgement present (Psych) Objective Data Vital Signs Vital Signs: Vital Signs - 24 hr 02/01/21 14:00 02/01/21 22:00 02/02/21 06:00 Temperature 97.5 F L 98.8 F 98.6 F Pulse Rate 71 72 49 L Respiratory Rate 16 16 16 Blood Pressure 135/51 L 138/52 L 132/65 Pulse Oximetry 96 96 94 Intake/Output Intake/Output: Intake & Output 01/30/21 01/31/21 02/01/21 02/02/21 23:59 23:59 23:59 23:59 Intake Total 2640 056 574 3401 Output Total 2675 1375 1250 100 Balance -35 -975 -1050 900 Meds/Results Medications: Active Medications Generic Name Dose Route Start Last Admin Trade Name Freq PRN Reason Stop Dose Admin Acetaminophen 650 mg 01/17/21 20:44 01/21/21 22:02 Acetaminophen 325 Mg Tablet PO 650 mg Q4H PRN Administrati
[2021-02-02] MEDS: ASPIRIN 81 MG ENTERIC TABLET PO (12:14)
[2021-02-02 12:15] VITALS: PULSE 52
[2021-02-02] MEDS: ISOSORBIDE MONONITRATE 60 MG TAB.ER.24H PO (12:15)
[2021-02-02] MEDS: METOPROLOL TARTRATE 25 MG TABLET 75 MG PO ×2 (12:15→20:35)
[2021-02-02] MEDS: TAMSULOSIN HCL 0.4 MG CAPSULE PO (12:17)
[2021-02-02 13:05] LABS: Glucose Point of Care 138 (65-105)
--- NOTE | 2021-02-02 13:30 | PM.IMPN ---
Progress Note: A&P Assessment and Plan (1) Partial small bowel obstruction: Onset Date: ~02/01/21 Code(s): K56.600 - Partial intestinal obstruction, unspecified as to cause Status: Acute Assessment and Plan: Resolved Had bedside hernia reduction Doing well today Appreciate surgery note (2) Parastomal hernia: Onset Date: ~01/28/21 Code(s): K43.5 - Parastomal hernia without obstruction or gangrene Status: Acute Assessment and Plan: S/p reduction Abdominal binder in place. (3) Nausea & vomiting: Code(s): R11.2 - Nausea with vomiting, unspecified Status: Acute Assessment and Plan: Resolved Will try clear liquids today Will advance as needed (4) Weakness: Code(s): R53.1 - Weakness Status: Acute Assessment and Plan: Continue to participate in therapy with PT/OT (5) Acute kidney failure: Qualifiers: Acute renal failure type: unspecified Qualified Code(s): N17.9 - Acute kidney failure, unspecified Code(s): N17.9 - Acute kidney failure, unspecified Status: Acute Assessment and Plan: Bun/cr trending down Appreciate Nephrology note (6) Stage 3b chronic kidney disease: Onset Date: Unknown Code(s): N18.32 - Chronic kidney disease, stage 3b Status: Chronic Assessment and Plan: Continue to monitor Patient has HTN and Diabetes which are contributing and causing renal disease. 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 Subjective Date/time seen: 02/02/21 13:30 States that he feels much better today Review of Systems Review of Systems: Narrative: no new issues. Constitutional: Comments: no fevers, no rigors, no chills. Cardiovascular: Comments: no chest pain, no pnd, no orthopnea. Respiratory: Comments: no sob, no cough, no sputum production. Gastrointestinal: Comments: no n/v/abdominal pain. Musculoskeletal: Comments: generalized weakness. Integumentary/Breasts: Comments: no rashes. Neurologic: Comments: no sensory motor deficit Exam Narrative: Exam Narrative: Lying in bed. Const: General: comfortable, no acute distress, alert and awake Nutritional Appearance: well nourished Orientation/consciousness: patient oriented x3 HENMT: Head: normal to inspection and normocephalic Ears: hearing grossly normal bilaterally General nose exam: Normal external nose present Face and sinus: normal facial exam Eyes: General: appearance normal, both eyes and all related structures Pupils: Equal, round and reactive pupils present EOM: EOMs intact bilaterally Neck: Neck: no lymphadenopathy, supple and no JVD Resp: Effort & Inspection: normal respiratory effort and able to speak in complete sentences Auscultation: clear to auscultation bilaterally Cardio: Jugular venous distension: no JVD Rate: regular rate Rhythm: regular rhythm GI: Inspection: other (Abdominal binder in place.) GI Palp: Yes Soft to palpation and Yes No hepatosplenomegaly present Skin: Wounds: wounds noted (colostomy in place.) Neuro: General: patient oriented x3 Cranial nerves: Yes CN's II-XII intact bilaterally and Yes Equal, round and reactive pupils present Cognition (Neuro): normal cognition Speech: normal speech Gait exam (Neuro): Normal gait present Motor exam (neuro): 5/5 motor strength present throughout E
[2021-02-02 14:00] VITALS: BP 104/52; PULSE 65; RESP 18; TEMP 37.1; O2SAT 96
--- NOTE | 2021-02-02 15:57 | PCPTNOTE ---
Treatment frequency changed to 2-3 days/week as pt has improved in functional mobility, needs continued therapy for endurance activities.
[2021-02-02] MEDS: CHOLECALCIFEROL 1,000 UNITS TABLET 2000 UNITS PO (17:49)
[2021-02-02 18:23] LABS: Glucose Point of Care 194 (65-105)
[2021-02-02] MEDS: ATORVASTATIN 40 MG TABLET PO (20:34)
[2021-02-02 20:35] VITALS: PULSE 68
[2021-02-02] MEDS: INSULIN ASPART (*BKC) 100 UNITS/ML SUB-Q (20:39)
[2021-02-02 21:51] VITALS: BP 123/48; PULSE 74; RESP 16; TEMP 36.3; O2SAT 99
[2021-02-02 23:59] LABS: Glucose Point of Care 204 (65-105)
[2021-02-03] MEDS: LACTATED RINGERS 1,000 ML 50 ML IV CONT (00:10)
[2021-02-03] MEDS: LEVOTHYROXINE SODIUM 50 MCG TABLET PO (05:45)
[2021-02-03 05:55] VITALS: BP 128/50; PULSE 64; RESP 16; TEMP 36.6; O2SAT 97
[2021-02-03 06:15] LABS: Hematocrit 25.5 % (42.0-52.0); Hemoglobin 8.2 g/dL (14.0-18.0); Mean Corpuscular HGB Conc 32.2 g/dl (32-36); Mean Corpuscular Hemoglobin 31.7 pg (26-34); Mean Corpuscular Volume 98.5 fl (80-100); Mean Platelet Volume 9.7 fl (7.4-10.4); Platelet Count Result 270 k/mm3 (150-375); Red Blood Count 2.59 M/mm3 (4.6-6.20); Red Cell Distribution Width 14.7 % (11.5-14.5); White Blood Count 7.6 K/mm3 (4.5-10.0)
[2021-02-03 06:29] LABS: Albumin Level 2.9 g/dL (3.5-5.1); Anion Gap 5 mmol/L (8-16); Blood Urea Nitrogen 20 mg/dL (9-20); Calcium 8.3 mg/dL (8.4-10.2); Carbon Dioxide 27 mmol/L (22-30); Chloride 106 mmol/L (98-107); Estimated CRCL calculation 30 ml/min; Estimated Glomerular Filt Rate 36; Glucose 162 mg/dL (75-110); Phosphorus 2.3 mg/dL (2.5-4.5); Potassium 3.3 mmol/L (3.4-5.0); Sodium 138 mmol/L (137-145)
[2021-02-03 08:40] LABS: Glucose Point of Care 149 (65-105)
[2021-02-03] MEDS: ISOSORBIDE MONONITRATE 60 MG TAB.ER.24H PO (09:13)
[2021-02-03] MEDS: TAMSULOSIN HCL 0.4 MG CAPSULE PO (09:13)
[2021-02-03] MEDS: CHOLECALCIFEROL 1,000 UNITS TABLET 2000 UNITS PO (09:14)
[2021-02-03] MEDS: CLOPIDOGREL BISULFATE 75 MG TABLET PO (09:14)
[2021-02-03] MEDS: VITAMIN B COMPLEX CAPSULE 1 CAP PO (09:14)
[2021-02-03] MEDS: ASPIRIN 81 MG ENTERIC TABLET PO (09:14)
[2021-02-03 09:15] VITALS: PULSE 84
[2021-02-03] MEDS: METOPROLOL TARTRATE 25 MG TABLET 75 MG PO ×2 (09:15→20:48)
[2021-02-03] MEDS: MULTIVIT W/ IRON, MINERALS 15 ML LIQUID (*BKC) PO (09:15)
[2021-02-03] MEDS: EPOETIN ALFA-EPBX 10,000 UNITS/ML VIAL 10000 UNITS SUB-Q (09:18)
--- NOTE | 2021-02-03 11:32 | PCNFU ---
Nutrition Follow-Up Complete: Suboptimal oral intake related to partial small bowel obstruction as evidenced by NPO/clear liquid diet x 5 days. Goal: Patient to meet estimated nutritional needs. Patient is currently well tolerating a clear liquid diet. Progressing towards current goal. Pt current nutrition is clear liquid diet. Last recorded weight is 88 kg. Stable weight upon admission. Bowel Motility: + BM / Labs Reviewed: Hgb 8.2, Hct 25.5, Alb 2.9, K 3.3, GFR 36, Glu 162 Meds Noted: Mylanta, Lipitor, Plavix, Retacrit, Novolog, Levemir, Imdur, Synthroid, Lactated Ringers, Lopressor, Flomax, Vitamin D, Vitamin B complex Additional Notes: Spoke with patient via phone. Patient reports tolerating clear liquids well. Patient complained of being extremely weak. He is hoping to advance his diet soon but is worried he will not be able to keep it down. Surgery will evaluate and hopefully advance diet. Patient is drinking ensure clear TID providing 240 calories and 8 grams of protein. Follow up in 3 days.
--- NOTE | 2021-02-03 11:47 | PCNSR ---
On 02/03/21, the student,Carola Cummins, provided care and completed [employer] documentation on this patient. I have reviewed the student's documentation and agree with the findings.
--- NOTE | 2021-02-03 12:01 | PM.PNGS ---
Progress Note: A&P Assessment and Plan (1) Partial small bowel obstruction: Onset Date: ~02/01/21 Code(s): K56.600 - Partial intestinal obstruction, unspecified as to cause Status: Acute Assessment and Plan: Abdominal films show some interval improvement. He continues to clinically improve, with good colostomy output. Will advance to full liquids today. Encouraged increased ambulation and continue to wear his abdominal binder with activity. (2) Parastomal hernia: Onset Date: ~01/28/21 Code(s): K43.5 - Parastomal hernia without obstruction or gangrene Status: Acute Assessment and Plan: Seems to be causing intermittent, at least, partial small bowel obstructions. Will continue with conservative measures to try and avoid proceeding with more urgent surgical hernia repair due to his recent cardiac issues. Continue abdominal binder. See plan above. (3) Stage 3b chronic kidney disease: Onset Date: Unknown Code(s): N18.32 - Chronic kidney disease, stage 3b Status: Chronic Assessment and Plan: As per primary service (4) Elevated troponin: Onset Date: ~01/26/21 Code(s): R77.8 - Other specified abnormalities of plasma proteins Status: Acute Assessment and Plan: Due to the recent cardiac issues, he is not a good candidate for surgical repair. Management per primary service and Cardiology. Additional Plan I discussed the plan of care with Dr. Mujica. Subjective Subjective Date/Time Seen: 02/03/21 12:01 Patient reports: no new complaints, feels better, pain is less, tolerating liquids well and nausea (mild, intermittent, improving) Interval history: Patient doing well today. Reports feeling tired. Reports his abdominal pain at the hernia has improved and is nearly completely resolved. Still reporting some mild intermittent nausea, but this has improved as well. No vomiting. Good stool output from the colostomy. Tolerating clear liquids. Review of Systems Review of Systems: All systems reviewed & are unremarkable except as noted in HPI and below Exam Const: General: no acute distress, alert and awake Orientation/consciousness: patient oriented x3 GI: Inspection: non-distended GI Palp: Yes Soft to palpation, No Tenderness to palpation present (GI) and Yes Hernia present (soft, reducible, nontender parastomal hernia) Auscultation: normal bowel sounds Other: Left sided colostomy functioning well with stool in bag. Skin: General skin exam: pallor Neuro: General: moves all extremities and no focal motor deficits Extrem: General: no clubbing, cyanosis or edema and no calf tenderness Psych: Mental Status: mental status grossly normal Insight: Good insight present (Psych) Judgement: Good judgement present (Psych) Objective Data Vital Signs Vital Signs: Vital Signs - 24 hr 02/02/21 12:15 02/02/21 14:00 02/02/21 20:35 Temperature 98.8 F Pulse Rate 52 L 65 68 Respiratory Rate 18 Blood Pressure 104/52 L Pulse Oximetry 96 02/02/21 21:51 02/03/21 05:55 02/03/21 09:15 Temperature 97.4 F L 97.9 F Pulse Rate 74 64 84 Respiratory Rate 16 16 Blood Pressure 123/48 L 128/50 L Pulse Oximetry 99 97 Intake/Output Intake/Output: Intake & Output 01/31/21 02/01/21 02/02/21 02/03/21 23:59 23:59 23:59 23:59 Intake Total 794 904 8474 1290 Output Total 1375 1250 800 900 Balance -975 -1050 2080 390 Meds/Results Medications: Active Medications Generic Name Dose Route Start Last Admin Trade Name Freq PRN Reason Stop Dose Admin Acetaminophen 650 mg 01/17/21 20:44 01/21/21 22:02 Acetaminophen 325 Mg Tablet PO 650 mg Q4H PRN Administration Mild Pain (1-3) or Fever Al Hydrox/Mg Hydrox/Simethicone 30 ml 01/31/21 15:50 01/31/21 22:19 Mag Hydrox/Al Hydrox/Simeth 30 Ml Udc PO 30 ml Q6H PRN Administration Indigestion Aspirin 81 mg 01/21/21 09:00 02/03/21 09:14 Aspirin
[2021-02-03 12:27] LABS: Glucose Point of Care 278 (65-105)
[2021-02-03] MEDS: INSULIN ASPART (*BKC) 100 UNITS/ML SUB-Q ×2 (13:14→20:49)
[2021-02-03 14:00] VITALS: BP 121/61; PULSE 71; RESP 18; TEMP 37.4; O2SAT 95
--- NOTE | 2021-02-03 14:57 | P.PNNP_ITS ---
Progress Note: A&P Assessment and Plan (1) Acute kidney failure: Qualifiers: Acute renal failure type: unspecified Qualified Code(s): N17.9 - Acute kidney failure, unspecified Code(s): N17.9 - Acute kidney failure, unspecified Status: Acute Assessment and Plan: * Creatinine is down to 1.8 * Variability of creatinine is probably related to fluid status. * continue ivfs * Will continue to follow this going forward. 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 (3) Partial small bowel obstruction: Onset Date: ~02/01/21 Code(s): K56.600 - Partial intestinal obstruction, unspecified as to cause Status: Acute Assessment and Plan: * as noted by imaging done * NG tube is out * clear liquids * surgery on the case (4) CAD (coronary artery disease): Code(s): I25.10 - Atherosclerotic heart disease of [place] coronary artery without angina pectoris Status: Acute Assessment and Plan: * no further chest pain at this time * Cardiology following (5) H/O: HTN (hypertension): Code(s): Z86.79 - Personal history of other diseases of the circulatory system Status: Chronic Assessment and Plan: * BP under good control * follow trend of hemodynamics (6) Normocytic anemia: Code(s): D64.9 - Anemia, unspecified Status: Acute Assessment and Plan: hemoglobin has improved to above 9 today. 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 on clear liquids. occasional nausea. passing gas and stool per ostomy No shortness of breath. Exam Narrative: Exam Narrative: General: WD/WN male in NAD Heart: normal S1 and S2; no rub or gallop Lungs: clear bilaterally Abdomen: BS + soft. Extremities: 1+ edema Skin: no rash or sq nodules Objective Data Vital Signs Vital Signs: Vital Signs - 24 hr 02/02/21 20:35 02/02/21 21:51 02/03/21 05:55 Temperature 36.3 C L 36.6 C Pulse Rate 68 74 64 Respiratory Rate 16 16 Blood Pressure 123/48 L 128/50 L Pulse Oximetry 99 97 02/03/21 09:15 02/03/21 14:00 Temperature 37.4 C Pulse Rate 84 71 Respiratory Rate 18 Blood Pressure 121/61 Pulse Oximetry 95 Intake/Output Intake/Output: Intake & Output 01/31/21 02/01/21 02/02/21 02/03/21
--- NOTE | 2021-02-03 14:57 | PM.PNNEP ---
Progress Note: A&P Assessment and Plan (1) Acute kidney failure: Qualifiers: Acute renal failure type: unspecified Qualified Code(s): N17.9 - Acute kidney failure, unspecified Code(s): N17.9 - Acute kidney failure, unspecified Status: Acute Assessment and Plan: Creatinine is down to 1.8 Variability of creatinine is probably related to fluid status. continue ivfs Will continue to follow this going forward. 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 (3) Partial small bowel obstruction: Onset Date: ~02/01/21 Code(s): K56.600 - Partial intestinal obstruction, unspecified as to cause Status: Acute Assessment and Plan: as noted by imaging done NG tube is out clear liquids surgery on the case (4) CAD (coronary artery disease): Code(s): I25.10 - Atherosclerotic heart disease of [place] coronary artery without angina pectoris Status: Acute Assessment and Plan: no further chest pain at this time Cardiology following (5) H/O: HTN (hypertension): Code(s): Z86.79 - Personal history of other diseases of the circulatory system Status: Chronic Assessment and Plan: BP under good control follow trend of hemodynamics (6) Normocytic anemia: Code(s): D64.9 - Anemia, unspecified Status: Acute Assessment and Plan: hemoglobin has improved to above 9 today. partly related to MARY/ARF and perhaps underlying CKD on Epogen Check CBC tomorrow (7) Diabetes mellitus: Qualifiers: Diabetes mellitus type: type 2 Diabetes mellitus chcf insulin use: with chcf use Diabetes mellitus complication status: without complication Qualified Code(s): E11.9 - Type 2 diabetes mellitus without complications; Z79.4 - terminal clerk (current) use of insulin Code(s): E11.9 - Type 2 diabetes mellitus without complications Status: Chronic Assessment and Plan: follow Accu-Cheks on sliding-scale insulin Subjective Date/time seen: 02/03/21 14:57 Interval history: pt is feeling okay resting comfortably in bed. on clear liquids. occasional nausea. passing gas and stool per ostomy No shortness of breath. Exam Narrative: Exam Narrative: General: WD/WN male in NAD Heart: normal S1 and S2; no rub or gallop Lungs: clear bilaterally Abdomen: BS + soft. Extremities: 1+ edema Skin: no rash or sq nodules Objective Data Vital Signs Vital Signs: Vital Signs - 24 hr 02/02/21 20:35 02/02/21 21:51 02/03/21 05:55 Temperature 36.3 C L 36.6 C Pulse Rate 68 74 64 Respiratory Rate 16 16 Blood Pressure 123/48 L 128/50 L Pulse Oximetry 99 97 02/03/21 09:15 02/03/21 14:00 Temperature 37.4 C Pulse Rate 84 71 Respiratory Rate 18 Blood Pressure 121/61 Pulse Oximetry 95 Intake/Output Intake/Output: Intake & Output 01/31/21 02/01/21 02/02/21 02/03/21 23:59 23:59 23:59 23:59 Intake Total 833 185 8399 2390 Output Total 1375 1250 800 900 Balance -975 -1050 2080 1490 Meds/Results Medications: Active Medications Generic Name Dose Route Start Last Admin Trade Name Freq PRN Reason Stop Dose Admin Acetaminophen 650 mg 01/17/21 20:44 01/21/21 22:02 Acetaminophen 325 Mg Tablet PO 650 mg Q4H PRN Administration Mild Pain (1-3) or Fever Al Hydrox/Mg Hydrox/Simethicone 30 ml 01/31/21 15:50 01/31/21 22:19 Mag Hydrox/Al Hydrox/Simeth 30 Ml Udc PO 30 ml Q6H PRN Administration Indigestion Aspirin 81 mg 01/21/21 09:00 02/03/21 09:14 Aspirin 81 Mg Enteric Tablet PO 81 mg DAILY GIOVANY
--- NOTE | 2021-02-03 16:50 | PM.IMPN ---
Progress Note: A&P Assessment and Plan (1) Partial small bowel obstruction: Onset Date: ~02/01/21 Code(s): K56.600 - Partial intestinal obstruction, unspecified as to cause Status: Acute Assessment and Plan: Resolved Hernia reduced at bedside Full liquids Continue to monitor Appreciate surgery note (2) Parastomal hernia: Onset Date: ~01/28/21 Code(s): K43.5 - Parastomal hernia without obstruction or gangrene Status: Acute Assessment and Plan: S/p reduction at bedside (3) Nausea & vomiting: Code(s): R11.2 - Nausea with vomiting, unspecified Status: Acute Assessment and Plan: Resolved Tolerating po Diet to be advanced (4) Stage 3b chronic kidney disease: Onset Date: Unknown Code(s): N18.32 - Chronic kidney disease, stage 3b Status: Chronic Assessment and Plan: Bun/cr trending down Now close to patient's baseline Continue to monitor Appreciate Nephrology note (5) LBBB (left bundle branch block): Code(s): I44.7 - Left bundle-branch block, unspecified Status: Acute Assessment and Plan: Unchanged (6) Hydronephrosis, left: Code(s): N13.30 - Unspecified hydronephrosis Status: Acute Assessment and Plan: S/p stent placement (7) Non-ST elevation NH (NSTEMI): Code(s): I21.4 - Non-ST elevation (NSTEMI) myocardial infarction Status: Acute Assessment and Plan: Medical management Stable Subjective Date/time seen: 02/03/21 16:50 Patient states that he feels much better. Review of Systems Review of Systems: Narrative: back pain. Exam Narrative: Exam Narrative: Sitting in bed. Const: General: comfortable, no acute distress, alert and awake Nutritional Appearance: average body habitus Orientation/consciousness: patient oriented x3 HENMT: Head: normocephalic Ears: hearing grossly normal bilaterally General nose exam: Normal external nose present Face and sinus: normal facial exam Eyes: General: appearance normal, both eyes and all related structures Pupils: Equal, round and reactive pupils present EOM: EOMs intact bilaterally Neck: Neck: no lymphadenopathy, supple and no JVD Resp: Effort & Inspection: able to speak in complete sentences Auscultation: clear to auscultation bilaterally Cardio: Jugular venous distension: no JVD Rate: regular rate Rhythm: regular rhythm GI: Inspection: other (colostomy in place, abdominal binder on.) GI Palp: Yes Soft to palpation and Yes No hepatosplenomegaly present Skin: Rashes: no rashes Neuro: General: patient oriented x3 and CN's II-XI intact bilaterally Cranial nerves: Yes CN's II-XII intact bilaterally and Yes Equal, round and reactive pupils present Cognition (Neuro): normal cognition Gait exam (Neuro): Normal gait present Motor exam (neuro): 5/5 motor strength present throughout Extrem: General: no pedal edema Objective Data Vital Signs Vital Signs: Vital Signs - 24 hr 02/02/21 20:35 02/02/21 21:51 02/03/21 05:55 Temperature 97.4 F L 97.9 F Pulse Rate 68 74 64 Respiratory Rate 16 16 Blood Pressure 123/48 L 128/50 L Pulse Oximetry 99 97 02/03/21 09:15 02/03/21 14:00 Temperature 99.4 F Pulse Rate 84 71 Respiratory Rate 18 Blood Pressure 121/61 Pulse Oximetry 95 Intake/Output Intake/Output: Intake & Output 01/31/21 02/01/21 02/02/21 02/03/21 23:59 23:59 23:59 23:59 Intake Total 003 205 2095 2390 Output Total 1375 1250 800 900 Balance -975 -1050 2080 1490 Meds/Results Medications: Active Medications Generic Name Dose Route Start Last Admin Trade Name Freq PRN Reason Stop Dose Admin Acetaminophen 650 mg 01/17/21 20:44 01/21/21 22:02 Acetaminophen 325 Mg Tablet PO 650 mg Q4H PRN Administration Mild Pain (1-3) or Fever Al Hydrox/Mg Hydrox/Simethicone 30 ml 01/31/21 15:50 01/31/21 22:19 Mag Hydrox/Al Hydrox/Simeth 30 Ml Udc PO 30 ml Q6H PRN
[2021-02-03] MEDS: traMADol/ACETAMINOPHEN (*CRX) (ULTRACET) 37.5/325 MG TABLET 1 TAB PO (17:35)
[2021-02-03 17:43] LABS: Glucose Point of Care 192 (65-105)
[2021-02-03 20:48] VITALS: PULSE 78
[2021-02-03] MEDS: ATORVASTATIN 40 MG TABLET PO (20:49)
[2021-02-03 20:55] LABS: Glucose Point of Care 206 (65-105)
[2021-02-03 22:00] VITALS: BP 113/49; PULSE 67; RESP 20; TEMP 36.6; O2SAT 96
[2021-02-04] MEDS: LEVOTHYROXINE SODIUM 50 MCG TABLET PO (05:34)
[2021-02-04 06:00] VITALS: BP 110/45; PULSE 62; RESP 20; TEMP 36.3; O2SAT 99
[2021-02-04 06:36] LABS: Albumin Level 2.9 g/dL (3.5-5.1); Anion Gap 3 mmol/L (8-16); Blood Urea Nitrogen 16 mg/dL (9-20); Calcium 8.3 mg/dL (8.4-10.2); Carbon Dioxide 29 mmol/L (22-30); Chloride 104 mmol/L (98-107); Estimated CRCL calculation 33 ml/min; Estimated Glomerular Filt Rate 42; Glucose 151 mg/dL (75-110); Phosphorus 2.6 mg/dL (2.5-4.5); Potassium 3.3 mmol/L (3.4-5.0); Sodium 136 mmol/L (137-145)
[2021-02-04] MEDS: INSULIN DETEMIR 100 UNITS/ML 8 UNITS SUB-Q (08:34)
[2021-02-04 08:37] VITALS: PULSE 62
[2021-02-04] MEDS: METOPROLOL TARTRATE 25 MG TABLET 75 MG PO ×2 (08:37→20:45)
[2021-02-04] MEDS: ASPIRIN 81 MG ENTERIC TABLET PO (08:39)
[2021-02-04] MEDS: ISOSORBIDE MONONITRATE 60 MG TAB.ER.24H PO (08:39)
[2021-02-04] MEDS: VITAMIN B COMPLEX CAPSULE 1 CAP PO (08:40)
[2021-02-04] MEDS: CHOLECALCIFEROL 1,000 UNITS TABLET 2000 UNITS PO (08:40)
[2021-02-04] MEDS: MULTIVIT W/ IRON, MINERALS 15 ML LIQUID (*BKC) PO (08:40)
[2021-02-04] MEDS: CLOPIDOGREL BISULFATE 75 MG TABLET PO (08:40)
[2021-02-04] MEDS: TAMSULOSIN HCL 0.4 MG CAPSULE PO (08:40)
[2021-02-04 10:03] LABS: Glucose Point of Care 133 (65-105)
[2021-02-04 11:26] LABS: Glucose Point of Care 232 (65-105)
[2021-02-04] MEDS: INSULIN ASPART (*BKC) 100 UNITS/ML SUB-Q ×2 (11:33→16:28)
--- NOTE | 2021-02-04 12:08 | PM.PNGS ---
Progress Note: A&P Assessment and Plan (1) Partial small bowel obstruction: Onset Date: ~02/01/21 Code(s): K56.600 - Partial intestinal obstruction, unspecified as to cause Status: Acute Assessment and Plan: Advance to soft diet today, start MiraLax daily Increase activity. (2) Parastomal hernia: Onset Date: ~01/28/21 Code(s): K43.5 - Parastomal hernia without obstruction or gangrene Status: Acute Subjective Subjective Date/Time Seen: 02/04/21 12:08 Interval history: Ostomy functioning. Tolerating full liquids. No nausea or vomiting. Patient only complains of back pain. Exam GI: Inspection: non-distended GI Palp: No Tenderness to palpation present (GI), No Guarding due to palpation present (GI) and Yes Other GI palpation findings present (soft parastomal hernia, stool in ostomy bag) Auscultation: normal bowel sounds Objective Data Vital Signs Vital Signs: Vital Signs - 24 hr 02/03/21 14:00 02/03/21 20:48 02/03/21 22:00 Temperature 37.4 C 36.6 C Pulse Rate 71 78 67 Respiratory Rate 18 20 Blood Pressure 121/61 113/49 L Pulse Oximetry 95 96 02/04/21 06:00 02/04/21 08:37 Temperature 36.3 C L Pulse Rate 62 62 Respiratory Rate 20 Blood Pressure 110/45 L Pulse Oximetry 99 Intake/Output Intake/Output: Intake & Output 02/01/21 02/02/21 02/03/21 02/04/21 23:59 23:59 23:59 23:59 Intake Total 200 2880 3340 1100 Output Total 1185 273 5132 300 Balance -1050 2080 2115 800 Meds/Results Medications: Active Medications Generic Name Dose Route Start Last Admin Trade Name Freq PRN Reason Stop Dose Admin Acetaminophen 650 mg 01/17/21 20:44 01/21/21 22:02 Acetaminophen 325 Mg Tablet PO 650 mg Q4H PRN Administration Mild Pain (1-3) or Fever Al Hydrox/Mg Hydrox/Simethicone 30 ml 01/31/21 15:50 01/31/21 22:19 Mag Hydrox/Al Hydrox/Simeth 30 Ml Udc PO 30 ml Q6H PRN Administration Indigestion Aspirin 81 mg 01/21/21 09:00 02/04/21 08:39 Aspirin 81 Mg Enteric Tablet PO 81 mg DAILY GIOVANY Administration Atorvastatin Calcium 40 mg 01/18/21 21:00 02/03/21 20:49 Atorvastatin 40 Mg Tablet PO 40 mg HS GIOVANY Administration Clopidogrel Bisulfate 75 mg 01/21/21 09:00 02/04/21 08:40 Clopidogrel Bisulfate 75 Mg Tablet PO 75 mg QAM GIOVANY Administration Dextrose 12.5 gm 01/17/21 21:14 Dextrose 50% 25 Gm/50 Ml Syringe IV PUSH PRN PRN Hypoglycemia Protocol Epoetin Parrish-epbx 10,000 units 01/20/21 09:00 02/03/21 09:18 Epoetin Parrish-Epbx 10,000 Units/Ml Vial SUB-Q 10,000 units MOWEFR GIOVANY Administration Glucagon 1 mg 01/17/21 21:14 Glucagon For Inj 1 Mg Vial IM PRN PRN Hypoglycemia Protocol Glucose 15 gm 01/17/21 21:14 Glucose Oral Gel 15 Gm Of Glucse In 37.5 Gm Tube PO PRN PRN Hypoglycemia Protocol Dextrose 1,000 mls @ 100 mls/hr 01/17/21 21:14 Dextrose 5% 1,000 Ml IVPB PRN PRN Hypoglycemia Protocol Insulin Aspart 2 - 5 units 01/18/21 11:30 02/04/21 11:33 Insulin Aspart (*Bkc) 100 Units/Ml SUB-Q 2 units ACHS GIOVANY Administration Protocol Insulin Detemir 8 units 01/24/21 09:00 02/04/21 08:34 Insulin Detemir 100 Units/Ml SUB-Q 8 units QAM GIOVANY Administration Isosorbide Mononitrate 60 mg 01/20/21 09:00 02/04/21 08:39 Isosorbide Mononitrate 60 Mg Tab.Er.24h PO 60 mg QAM GIOVANY Administration Levalbuterol HCl 0.63 mg 01/26/21 14:31 Levalbuterol Neb 1.25 Mg/3 Ml INHALATION Q6HRT PRN Shortness Of Breath Or Wheezing Levothyroxine Sodium 50 mcg 01/18/21 09:00 02/04/21 05:34 Levothyroxine Sodium 50 Mcg Tablet PO 50 mcg DAILY@0630 GIOVANY Administration Metoprolol Tartrate 5 mg 01/21/21 09:58 Metoprolol Tartrate Inj 5 Mg/5 Ml Vial IV PUSH Q2H PRN Chest Pain Metoprolol Tartrate 75 mg 01/21/21 21:00 02/04/21 08:37 Metoprolol Tartrate 25 Mg Tablet PO
[2021-02-04] MEDS: polyethylene glycoL 3350 17 GM POWD.PACK PO (12:55)
[2021-02-04 14:00] VITALS: BP 124/55; PULSE 63; RESP 20; TEMP 36.7; O2SAT 100
--- NOTE | 2021-02-04 15:26 | P.PNNP_ITS ---
Progress Note: A&P Assessment and Plan (1) Acute kidney failure: Qualifiers: Acute renal failure type: unspecified Qualified Code(s): N17.9 - Acute kidney failure, unspecified Code(s): N17.9 - Acute kidney failure, unspecified Status: Acute Assessment and Plan: * Creatinine is down to 1.6 * Variability of creatinine is probably related to fluid status. 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 (3) Partial small bowel obstruction: Onset Date: ~02/01/21 Code(s): K56.600 - Partial intestinal obstruction, unspecified as to cause Status: Acute Assessment and Plan: * full liquids now * surgery on the case (4) CAD (coronary artery disease): Code(s): I25.10 - Atherosclerotic heart disease of [place] coronary artery without angina pectoris Status: Acute Assessment and Plan: * no further chest pain at this time * Cardiology following (5) H/O: HTN (hypertension): Code(s): Z86.79 - Personal history of other diseases of the circulatory system Status: Chronic Assessment and Plan: * BP under good control * follow trend of hemodynamics (6) Normocytic anemia: Code(s): D64.9 - Anemia, unspecified Status: Acute Assessment and Plan: hemoglobin has improved to above 9 today. * partly related to MARY/ARF and perhaps underlying CKD * on Epogen * Check CBC tomorrow (7) Diabetes mellitus: Qualifiers: Diabetes mellitus type: type 2 Diabetes mellitus ocean transportation intermediary insulin use: with ocean transportation intermediary use Diabetes mellitus complication status: without complication Qualified Code(s): E11.9 - Type 2 diabetes mellitus without complications; Z79.4 - local intermodal truck driver (current) use of insulin Code(s): E11.9 - Type 2 diabetes mellitus without complications Status: Chronic Assessment and Plan: * follow Accu-Cheks * on sliding-scale insulin Subjective Date/time seen: 02/04/21 15:26 Interval history: pt is feeling okay on full liquids and doing okay so far Exam Narrative: Exam Narrative: General: WD/WN male in NAD Heart: normal S1 and S2; no rub or gallop Lungs: clear bilaterally Abdomen: BS + soft. Extremities: 1+ edema Skin: no rash or sq nodules Objective Data Vital Signs Vital Signs: Vital Signs - 24 hr 02/03/21 20:48 02/03/21 22:00 02/04/21 06:00 Temperature 36.6 C 36.3 C L Pulse Rate 78 67 62 Respiratory Rate 20 20 Blood Pressure 113/49 L 110/45 L Pulse Oximetry 96 99 02/04/21 08:37 02/04/21 14:00 Temperature 36.7 C Pulse Rate 62 63 Respiratory Rate 20 Blood Pressure 124/55 L Pulse Oximetry 100 Intake/Output Intake/Output: Intake & Output 02/01/21 02/02/21 02/03/21 02/04/21 23:59 23:59 23:59 23:59 Intake Total 200 2880 3340 1100 Output Total 0706 731 3698 300 Balance -1050 2080 2115 800
--- NOTE | 2021-02-04 15:26 | PM.PNNEP ---
Progress Note: A&P Assessment and Plan (1) Acute kidney failure: Qualifiers: Acute renal failure type: unspecified Qualified Code(s): N17.9 - Acute kidney failure, unspecified Code(s): N17.9 - Acute kidney failure, unspecified Status: Acute Assessment and Plan: Creatinine is down to 1.6 Variability of creatinine is probably related to fluid status. 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 (3) Partial small bowel obstruction: Onset Date: ~02/01/21 Code(s): K56.600 - Partial intestinal obstruction, unspecified as to cause Status: Acute Assessment and Plan: full liquids now surgery on the case (4) CAD (coronary artery disease): Code(s): I25.10 - Atherosclerotic heart disease of [place] coronary artery without angina pectoris Status: Acute Assessment and Plan: no further chest pain at this time Cardiology following (5) H/O: HTN (hypertension): Code(s): Z86.79 - Personal history of other diseases of the circulatory system Status: Chronic Assessment and Plan: BP under good control follow trend of hemodynamics (6) Normocytic anemia: Code(s): D64.9 - Anemia, unspecified Status: Acute Assessment and Plan: hemoglobin has improved to above 9 today. partly related to MARY/ARF and perhaps underlying CKD on Epogen Check CBC tomorrow (7) Diabetes mellitus: Qualifiers: Diabetes mellitus type: type 2 Diabetes mellitus keno terminal operator insulin use: with keno terminal operator use Diabetes mellitus complication status: without complication Qualified Code(s): E11.9 - Type 2 diabetes mellitus without complications; Z79.4 - shelter (current) use of insulin Code(s): E11.9 - Type 2 diabetes mellitus without complications Status: Chronic Assessment and Plan: follow Accu-Cheks on sliding-scale insulin Subjective Date/time seen: 02/04/21 15:26 Interval history: pt is feeling okay on full liquids and doing okay so far Exam Narrative: Exam Narrative: General: WD/WN male in NAD Heart: normal S1 and S2; no rub or gallop Lungs: clear bilaterally Abdomen: BS + soft. Extremities: 1+ edema Skin: no rash or sq nodules Objective Data Vital Signs Vital Signs: Vital Signs - 24 hr 02/03/21 20:48 02/03/21 22:00 02/04/21 06:00 Temperature 36.6 C 36.3 C L Pulse Rate 78 67 62 Respiratory Rate 20 20 Blood Pressure 113/49 L 110/45 L Pulse Oximetry 96 99 02/04/21 08:37 02/04/21 14:00 Temperature 36.7 C Pulse Rate 62 63 Respiratory Rate 20 Blood Pressure 124/55 L Pulse Oximetry 100 Intake/Output Intake/Output: Intake & Output 02/01/21 02/02/21 02/03/21 02/04/21 23:59 23:59 23:59 23:59 Intake Total 200 2880 3340 1100 Output Total 0975 368 3779 300 Balance -1050 2080 2115 800 Meds/Results Medications: Active Medications Generic Name Dose Route Start Last Admin Trade Name Freq PRN Reason Stop Dose Admin Acetaminophen 650 mg 01/17/21 20:44 01/21/21 22:02 Acetaminophen 325 Mg Tablet PO 650 mg Q4H PRN Administration Mild Pain (1-3) or Fever Al Hydrox/Mg Hydrox/Simethicone 30 ml 01/31/21 15:50 01/31/21 22:19 Mag Hydrox/Al Hydrox/Simeth 30 Ml Udc PO 30 ml Q6H PRN Administration Indigestion Aspirin 81 mg 01/21/21 09:00 02/04/21 08:39 Aspirin 81 Mg Enteric Tablet PO 81 mg DAILY GIOVANY Administration Atorvastatin Calcium 40 mg 01/18/21 21:00 02/03/21 20:49 Atorvastatin 40 Mg Tablet PO 40 mg HS GIOVANY Admin
[2021-02-04] MEDS: POTASSIUM CHLORIDE 20 MEQ TABLET PO (15:41)
--- NOTE | 2021-02-04 16:03 | PM.IMPN ---
Progress Note: A&P Assessment and Plan (1) Partial small bowel obstruction: Onset Date: ~02/01/21 Code(s): K56.600 - Partial intestinal obstruction, unspecified as to cause Status: Acute Assessment and Plan: Seems to have resolved Advance diet as tolerated Appreciate surgery note Encourage deambulation (2) Parastomal hernia: Onset Date: ~01/28/21 Code(s): K43.5 - Parastomal hernia without obstruction or gangrene Status: Acute Assessment and Plan: Reduced at bed side Abdominal binder in place (3) Nausea & vomiting: Code(s): R11.2 - Nausea with vomiting, unspecified Status: Acute Assessment and Plan: Resolved. (4) Stage 3b chronic kidney disease: Onset Date: Unknown Code(s): N18.32 - Chronic kidney disease, stage 3b Status: Chronic Assessment and Plan: Improved Continue to monitor Appreciate Nephrology note (5) Weakness: Code(s): R53.1 - Weakness Status: Acute Assessment and Plan: PT/OT (6) LBBB (left bundle branch block): Code(s): I44.7 - Left bundle-branch block, unspecified Status: Acute Assessment and Plan: Unchanged (7) Non-ST elevation RI (NSTEMI): Code(s): I21.4 - Non-ST elevation (NSTEMI) myocardial infarction Status: Acute Assessment and Plan: Stable Continue to monitor Medical management at this time Subjective Date/time seen: 02/04/21 16:03 States that he feels much better Review of Systems Review of Systems: Narrative: Denies any issues. Exam Narrative: Exam Narrative: Lying in bed Const: General: comfortable, no acute distress, alert and awake Nutritional Appearance: average body habitus Orientation/consciousness: patient oriented x3 HENMT: Head: normocephalic Ears: hearing grossly normal bilaterally General nose exam: Normal external nose present Face and sinus: normal facial exam Eyes: General: appearance normal, both eyes and all related structures Pupils: Equal, round and reactive pupils present EOM: EOMs intact bilaterally Neck: Neck: no lymphadenopathy, supple and no JVD Lymphatic: no lymphadenopathy noted Resp: Effort & Inspection: normal respiratory effort and able to speak in complete sentences Auscultation: clear to auscultation bilaterally Cardio: Jugular venous distension: no JVD Rate: regular rate Rhythm: regular rhythm GI: GI Palp: Yes Soft to palpation and Yes No hepatosplenomegaly present Skin: Wounds: wounds noted (Colostome in place) Neuro: General: patient oriented x3 and CN's II-XI intact bilaterally Cranial nerves: Yes CN's II-XII intact bilaterally, Yes Equal, round and reactive pupils present and Yes Bilaterally intact EOM present Cognition (Neuro): normal cognition Gait exam (Neuro): Normal gait present Motor exam (neuro): 5/5 motor strength present throughout Extrem: General: no pedal edema Objective Data Vital Signs Vital Signs: Vital Signs - 24 hr 02/03/21 20:48 02/03/21 22:00 02/04/21 06:00 Temperature 97.9 F 97.4 F L Pulse Rate 78 67 62 Respiratory Rate 20 20 Blood Pressure 113/49 L 110/45 L Pulse Oximetry 96 99 02/04/21 08:37 02/04/21 14:00 Temperature 98.0 F Pulse Rate 62 63 Respiratory Rate 20 Blood Pressure 124/55 L Pulse Oximetry 100 Intake/Output Intake/Output: Intake & Output 02/01/21 02/02/21 02/03/21 02/04/21 23:59 23:59 23:59 23:59 Intake Total 200 2880 3340 1340 Output Total 8788 689 5698 300 Balance -1050 2080 2115 1040 Meds/Results Medications: Active Medications Generic Name Dose Route Start Last Admin Trade Name Freq PRN Reason Stop Dose Admin Acetaminophen 650 mg 01/17/21 20:44 01/21/21 22:02 Acetaminophen 325 Mg Tablet PO 650 mg Q4H PRN Administration Mild Pain (1-3) or Fever Al Hydrox/Mg Hydrox/Simethicone 30 ml 01/31/21 15:50 01/31/21 22:19 Mag Hydrox/Al Hydrox/Simeth 30 Ml Udc PO 30 ml Q6H PRN A
[2021-02-04 16:29] LABS: Glucose Point of Care 217 (65-105)
[2021-02-04 20:43] LABS: Glucose Point of Care 151 (65-105)
[2021-02-04 20:45] VITALS: PULSE 66
[2021-02-04] MEDS: ATORVASTATIN 40 MG TABLET PO (20:45)
[2021-02-04] MEDS: MAG HYDROX/AL HYDROX/SIMETH 30 ML UDC PO (21:03)
[2021-02-04 22:00] VITALS: BP 121/56; PULSE 65; RESP 16; TEMP 36.8; O2SAT 100
[2021-02-05] MEDS: LEVOTHYROXINE SODIUM 50 MCG TABLET PO (05:35)
[2021-02-05 06:00] VITALS: BP 126/49; PULSE 58; RESP 16; TEMP 36.9; O2SAT 98
[2021-02-05 06:04] LABS: Hemoglobin 8.4 g/dL (14.0-18.0); Mean Corpuscular HGB Conc 32.3 g/dl (32-36); Mean Corpuscular Hemoglobin 31.5 pg (26-34); Mean Corpuscular Volume 97.4 fl (80-100); Mean Platelet Volume 9.9 fl (7.4-10.4); Platelet Count Result 278 k/mm3 (150-375); Red Blood Count 2.67 M/mm3 (4.6-6.20); Red Cell Distribution Width 14.4 % (11.5-14.5); White Blood Count 7.2 K/mm3 (4.5-10.0)
[2021-02-05 06:20] LABS: Anion Gap 2 mmol/L (8-16); Blood Urea Nitrogen 15 mg/dL (9-20); Calcium 8.7 mg/dL (8.4-10.2); Carbon Dioxide 30 mmol/L (22-30); Chloride 102 mmol/L (98-107); Estimated CRCL calculation 33 ml/min; Estimated Glomerular Filt Rate 42; Glucose 150 mg/dL (75-110); Potassium 3.7 mmol/L (3.4-5.0); Sodium 134 mmol/L (137-145)
[2021-02-05 08:00] LABS: Glucose Point of Care 145 (65-105)
[2021-02-05] MEDS: INSULIN DETEMIR 100 UNITS/ML 8 UNITS SUB-Q (08:11)
[2021-02-05] MEDS: CHOLECALCIFEROL 1,000 UNITS TABLET 2000 UNITS PO (08:14)
[2021-02-05] MEDS: TAMSULOSIN HCL 0.4 MG CAPSULE PO (08:14)
[2021-02-05] MEDS: CLOPIDOGREL BISULFATE 75 MG TABLET PO (08:14)
[2021-02-05] MEDS: MULTIVIT W/ IRON, MINERALS 15 ML LIQUID (*BKC) PO (08:14)
[2021-02-05] MEDS: polyethylene glycoL 3350 17 GM POWD.PACK PO (08:14)
[2021-02-05 08:15] VITALS: PULSE 65
[2021-02-05] MEDS: ASPIRIN 81 MG ENTERIC TABLET PO (08:15)
[2021-02-05] MEDS: ISOSORBIDE MONONITRATE 60 MG TAB.ER.24H PO (08:15)
[2021-02-05] MEDS: METOPROLOL TARTRATE 25 MG TABLET 75 MG PO ×2 (08:15→20:42)
[2021-02-05] MEDS: VITAMIN B COMPLEX CAPSULE 1 CAP PO (08:17)
--- NOTE | 2021-02-05 10:47 | P.PNNP_ITS ---
Progress Note: A&P Assessment and Plan (1) Acute kidney failure: Qualifiers: Acute renal failure type: unspecified Qualified Code(s): N17.9 - Acute kidney failure, unspecified Code(s): N17.9 - Acute kidney failure, unspecified Status: Acute Assessment and Plan: * Creatinine is down to 1.6 * This seems stable. 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 (3) Partial small bowel obstruction: Onset Date: ~02/01/21 Code(s): K56.600 - Partial intestinal obstruction, unspecified as to cause Status: Acute Assessment and Plan: * Diet has been advanced. * So far he is tolerating this well * surgery on the case (4) CAD (coronary artery disease): Code(s): I25.10 - Atherosclerotic heart disease of [place] coronary artery without angina pectoris Status: Acute Assessment and Plan: * no further chest pain at this time * Cardiology following (5) H/O: HTN (hypertension): Code(s): Z86.79 - Personal history of other diseases of the circulatory system Status: Chronic Assessment and Plan: * BP under good control * On metoprolol alone (6) Normocytic anemia: Code(s): D64.9 - Anemia, unspecified Status: Acute Assessment and Plan: hemoglobin has improved to above 9 today. * partly related to MARY/ARF and perhaps underlying CKD * on Epogen * Hemoglobin is up and down but overall stable (7) Diabetes mellitus: Qualifiers: Diabetes mellitus type: type 2 Diabetes mellitus group home insulin use: with intermediate manager use Diabetes mellitus complication status: without complication Qualified Code(s): E11.9 - Type 2 diabetes mellitus without complications; Z79.4 - assisted (current) use of insulin Code(s): E11.9 - Type 2 diabetes mellitus without complications Status: Chronic Assessment and Plan: * follow Accu-Cheks * on sliding-scale insulin Subjective Date/time seen: 02/05/21 10:47 Interval history: pt is feeling okay Diet has been advanced and he is tolerating this so far. Exam Narrative: Exam Narrative: General: WD/WN male in NAD Heart: normal S1 and S2; no rub or gallop Lungs: clear bilaterally Abdomen: BS + soft and nontender Extremities: 1+ edema and no cyanosis Skin: no rash or sq nodules Objective Data Vital Signs Vital Signs: Vital Signs - 24 hr 02/04/21 14:00 02/04/21 20:45 02/04/21 22:00 Temperature 36.7 C 36.8 C Pulse Rate 63 66 65 Respiratory Rate 20 16 Blood Pressure 124/55 L 121/56 L Pulse Oximetry 100 100 02/05/21 06:00 02/05/21 08:15 Temperature 36.9 C Pulse Rate 58 L 65 Respiratory Rate 16 Blood Pressure 126/49 L Pulse Oximetry 98 Intake/Output Intake/Output: Intake & Output 02/02/21 02/03/21 02/04/21 02/05/21 23:59 23:59 23:59 23:59 Intake Total 2880 3340 2130 340 Output Total 800 1225 850 900 Balance 2080 2115 128
--- NOTE | 2021-02-05 10:47 | PM.PNNEP ---
Progress Note: A&P Assessment and Plan (1) Acute kidney failure: Qualifiers: Acute renal failure type: unspecified Qualified Code(s): N17.9 - Acute kidney failure, unspecified Code(s): N17.9 - Acute kidney failure, unspecified Status: Acute Assessment and Plan: Creatinine is down to 1.6 This seems stable. 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 (3) Partial small bowel obstruction: Onset Date: ~02/01/21 Code(s): K56.600 - Partial intestinal obstruction, unspecified as to cause Status: Acute Assessment and Plan: Diet has been advanced. So far he is tolerating this well surgery on the case (4) CAD (coronary artery disease): Code(s): I25.10 - Atherosclerotic heart disease of [place] coronary artery without angina pectoris Status: Acute Assessment and Plan: no further chest pain at this time Cardiology following (5) H/O: HTN (hypertension): Code(s): Z86.79 - Personal history of other diseases of the circulatory system Status: Chronic Assessment and Plan: BP under good control On metoprolol alone (6) Normocytic anemia: Code(s): D64.9 - Anemia, unspecified Status: Acute Assessment and Plan: hemoglobin has improved to above 9 today. partly related to MARY/ARF and perhaps underlying CKD on Epogen Hemoglobin is up and down but overall stable (7) Diabetes mellitus: Qualifiers: Diabetes mellitus type: type 2 Diabetes mellitus penitentiary insulin use: with long chain dyeing machine operator use Diabetes mellitus complication status: without complication Qualified Code(s): E11.9 - Type 2 diabetes mellitus without complications; Z79.4 - [facility] (current) use of insulin Code(s): E11.9 - Type 2 diabetes mellitus without complications Status: Chronic Assessment and Plan: follow Accu-Cheks on sliding-scale insulin Subjective Date/time seen: 02/05/21 10:47 Interval history: pt is feeling okay Diet has been advanced and he is tolerating this so far. Exam Narrative: Exam Narrative: General: WD/WN male in NAD Heart: normal S1 and S2; no rub or gallop Lungs: clear bilaterally Abdomen: BS + soft and nontender Extremities: 1+ edema and no cyanosis Skin: no rash or sq nodules Objective Data Vital Signs Vital Signs: Vital Signs - 24 hr 02/04/21 14:00 02/04/21 20:45 02/04/21 22:00 Temperature 36.7 C 36.8 C Pulse Rate 63 66 65 Respiratory Rate 20 16 Blood Pressure 124/55 L 121/56 L Pulse Oximetry 100 100 02/05/21 06:00 02/05/21 08:15 Temperature 36.9 C Pulse Rate 58 L 65 Respiratory Rate 16 Blood Pressure 126/49 L Pulse Oximetry 98 Intake/Output Intake/Output: Intake & Output 02/02/21 02/03/21 02/04/21 02/05/21 23:59 23:59 23:59 23:59 Intake Total 2880 3340 2130 340 Output Total 800 1225 850 900 Balance 2080 2115 1280 -560 Meds/Results Medications: Active Medications Generic Name Dose Route Start Last Admin Trade Name Freq PRN Reason Stop Dose Admin Acetaminophen 650 mg 01/17/21 20:44 01/21/21 22:02 Acetaminophen 325 Mg Tablet PO 650 mg Q4H PRN Administration Mild Pain (1-3) or Fever Al Hydrox/Mg Hydrox/Simethicone 30 ml 01/31/21 15:50 02/04/21 21:03 Mag Hydrox/Al Hydrox/Simeth 30 Ml Udc PO 30 ml Q6H PRN Administration Indigestion Aspirin 81 mg 01/21/21 09:00 02/05/21 08:15 Aspirin 81 Mg Enteric Tablet PO 81 mg DAILY GIOVANY Administration Atorvastatin Calcium 40 mg 01/18/21 21:00 02/04/21 20:45 Atorvastatin 40 Mg Tablet PO 40 mg HS S
[2021-02-05 11:47] LABS: Glucose Point of Care 182 (65-105)
--- NOTE | 2021-02-05 11:51 | PM.IMPN ---
Progress Note: A&P Assessment and Plan (1) Partial small bowel obstruction: Onset Date: ~02/01/21 Code(s): K56.600 - Partial intestinal obstruction, unspecified as to cause Status: Acute Assessment and Plan: Resolved Tolerating diet Follow surgery recs. (2) Nausea & vomiting: Code(s): R11.2 - Nausea with vomiting, unspecified Status: Acute Assessment and Plan: Resolved Supportive care (3) Parastomal hernia: Onset Date: ~01/28/21 Code(s): K43.5 - Parastomal hernia without obstruction or gangrene Status: Acute Assessment and Plan: S/p reduction at bedside (4) Stage 3b chronic kidney disease: Onset Date: Unknown Code(s): N18.32 - Chronic kidney disease, stage 3b Status: Chronic Assessment and Plan: Bun/Cr at patient's baseline Appreciate Nephrology note (5) Weakness: Code(s): R53.1 - Weakness Status: Acute Assessment and Plan: Participating with PT/OT in therapy sessions (6) LBBB (left bundle branch block): Code(s): I44.7 - Left bundle-branch block, unspecified Status: Acute Assessment and Plan: Unchanged Continue to monitor (7) Hydronephrosis, left: Code(s): N13.30 - Unspecified hydronephrosis Status: Acute Assessment and Plan: S/p stent placement (8) Non-ST elevation AK (NSTEMI): Code(s): I21.4 - Non-ST elevation (NSTEMI) myocardial infarction Status: Acute Assessment and Plan: Medical management. Subjective Date/time seen: 02/05/21 11:51 Patient states 'that he feels fine Review of Systems Review of Systems: Narrative: No new issues overnight. Exam Narrative: Exam Narrative: Standing using his urinal Const: General: comfortable, no acute distress, alert, awake and Physically active Nutritional Appearance: average body habitus Orientation/consciousness: patient oriented x3 HENMT: Head: normal to inspection and normocephalic Ears: hearing grossly normal bilaterally General nose exam: Normal external nose present Face and sinus: normal facial exam Eyes: General: appearance normal, both eyes and all related structures Pupils: Equal, round and reactive pupils present EOM: EOMs intact bilaterally Neck: Neck: no lymphadenopathy, supple and no JVD Resp: Effort & Inspection: able to speak in complete sentences Auscultation: clear to auscultation bilaterally Cardio: Rate: regular rate Rhythm: regular rhythm GI: Inspection: other (colostomy in place.) GI Palp: Yes Soft to palpation and Yes No hepatosplenomegaly present Skin: Wounds: wounds noted (colostomy in place.) Neuro: General: patient oriented x3 and CN's II-XI intact bilaterally Cranial nerves: Yes CN's II-XII intact bilaterally and Yes Equal, round and reactive pupils present Cognition (Neuro): normal cognition Motor exam (neuro): 5/5 motor strength present throughout Extrem: General: no pedal edema Objective Data Vital Signs Vital Signs: Vital Signs - 24 hr 02/04/21 14:00 02/04/21 20:45 02/04/21 22:00 Temperature 98.0 F 98.2 F Pulse Rate 63 66 65 Respiratory Rate 20 16 Blood Pressure 124/55 L 121/56 L Pulse Oximetry 100 100 02/05/21 06:00 02/05/21 08:15 Temperature 98.5 F Pulse Rate 58 L 65 Respiratory Rate 16 Blood Pressure 126/49 L Pulse Oximetry 98 Intake/Output Intake/Output: Intake & Output 02/02/21 02/03/21 02/04/21 02/05/21 23:59 23:59 23:59 23:59 Intake Total 2880 3340 2130 340 Output Total 800 1225 850 900 Balance 2080 2115 1280 -560 Meds/Results Medications: Active Medications Generic Name Dose Route Start Last Admin Trade Name Freq PRN Reason Stop Dose Admin Acetaminophen 650 mg 01/17/21 20:44 01/21/21 22:02 Acetaminophen 325 Mg Tablet PO 650 mg Q4H PRN Administration Mild Pain (1-3) or Fever Al Hydrox/Mg Hydrox/Simethicone 30 ml 01/31/21 15:50 02/04/21 21:03 Mag Hydrox/Al Hydrox/S
--- NOTE | 2021-02-05 13:06 | PM.PNGS ---
Progress Note: A&P Assessment and Plan (1) Partial small bowel obstruction: Onset Date: ~02/01/21 Code(s): K56.600 - Partial intestinal obstruction, unspecified as to cause Status: Acute Assessment and Plan: Tolerating soft diet, OK to discharge from surgical standpoint Discussed that parastomal hernia may continue to cause intermittent partial instructions. He needs to lay down and try to reduce hernia if he is feeling that it is protruding more or causing symptoms. May eventually require parastomal hernia repair if this continues. (2) Parastomal hernia: Onset Date: ~01/28/21 Code(s): K43.5 - Parastomal hernia without obstruction or gangrene Status: Acute Subjective Subjective Date/Time Seen: 02/05/21 13:06 Interval history: Tolerating diet. No nausea or vomiting. Still has parastomal hernia that gets filled with gas at times. No abdominal pain. Exam GI: Inspection: non-distended GI Palp: No Tenderness to palpation present (GI), No Guarding due to palpation present (GI) and Yes Other GI palpation findings present (soft parastomal hernia, stool in ostomy bag) Auscultation: normal bowel sounds Objective Data Vital Signs Vital Signs: Vital Signs - 24 hr 02/04/21 14:00 02/04/21 20:45 02/04/21 22:00 Temperature 36.7 C 36.8 C Pulse Rate 63 66 65 Respiratory Rate 20 16 Blood Pressure 124/55 L 121/56 L Pulse Oximetry 100 100 02/05/21 06:00 02/05/21 08:15 Temperature 36.9 C Pulse Rate 58 L 65 Respiratory Rate 16 Blood Pressure 126/49 L Pulse Oximetry 98 Intake/Output Intake/Output: Intake & Output 02/02/21 02/03/21 02/04/21 02/05/21 23:59 23:59 23:59 23:59 Intake Total 2880 3340 2130 340 Output Total 800 1225 850 900 Balance 2080 2115 1280 -560 Meds/Results Medications: Active Medications Generic Name Dose Route Start Last Admin Trade Name Freq PRN Reason Stop Dose Admin Acetaminophen 650 mg 01/17/21 20:44 01/21/21 22:02 Acetaminophen 325 Mg Tablet PO 650 mg Q4H PRN Administration Mild Pain (1-3) or Fever Al Hydrox/Mg Hydrox/Simethicone 30 ml 01/31/21 15:50 02/04/21 21:03 Mag Hydrox/Al Hydrox/Simeth 30 Ml Udc PO 30 ml Q6H PRN Administration Indigestion Aspirin 81 mg 01/21/21 09:00 02/05/21 08:15 Aspirin 81 Mg Enteric Tablet PO 81 mg DAILY GIOVANY Administration Atorvastatin Calcium 40 mg 01/18/21 21:00 02/04/21 20:45 Atorvastatin 40 Mg Tablet PO 40 mg HS GIOVANY Administration Clopidogrel Bisulfate 75 mg 01/21/21 09:00 02/05/21 08:14 Clopidogrel Bisulfate 75 Mg Tablet PO 75 mg QAM GIOVANY Administration Dextrose 12.5 gm 01/17/21 21:14 Dextrose 50% 25 Gm/50 Ml Syringe IV PUSH PRN PRN Hypoglycemia Protocol Epoetin Parrish-epbx 10,000 units 01/20/21 09:00 02/03/21 09:18 Epoetin Parrish-Epbx 10,000 Units/Ml Vial SUB-Q 10,000 units MOWEFR GIOVANY Administration Glucagon 1 mg 01/17/21 21:14 Glucagon For Inj 1 Mg Vial IM PRN PRN Hypoglycemia Protocol Glucose 15 gm 01/17/21 21:14 Glucose Oral Gel 15 Gm Of Glucse In 37.5 Gm Tube PO PRN PRN Hypoglycemia Protocol Dextrose 1,000 mls @ 100 mls/hr 01/17/21 21:14 Dextrose 5% 1,000 Ml IVPB PRN PRN Hypoglycemia Protocol Insulin Aspart 2 - 5 units 01/18/21 11:30 02/05/21 11:46 Insulin Aspart (*Bkc) 100 Units/Ml SUB-Q Not Given ACHS [facility] Protocol Insulin Detemir 8 units 01/24/21 09:00 02/05/21 08:11 Insulin Detemir 100 Units/Ml SUB-Q 8 units QAM [facility] Administration Isosorbide Mononitrate 60 mg 01/20/21 09:00 02/05/21 08:15 Isosorbide Mononitrate 60 Mg Tab.Er.24h PO 60 mg QAM GIOVANY Administration Levalbuterol HCl 0.63 mg 01/26/21 14:31 Levalbuterol Neb 1.25 Mg/3 Ml INHALATION Q6HRT PRN Shortness Of Breath Or Wheezing Levothyroxine Sodium 50 mcg 01/18/21 09:00 02/05/21 05:35 Levothyroxine Sodium 50 Mcg Tablet
[2021-02-05 14:00] VITALS: BP 111/56; PULSE 65; RESP 20; TEMP 36.3; O2SAT 99
[2021-02-05 16:27] LABS: Glucose Point of Care 164 (65-105)
[2021-02-05] MEDS: ATORVASTATIN 40 MG TABLET PO (20:42)
[2021-02-05 20:52] LABS: Glucose Point of Care 163 (65-105)
[2021-02-05 22:00] VITALS: BP 116/53; PULSE 63; RESP 18; TEMP 36.6; O2SAT 99
[2021-02-06] MEDS: LEVOTHYROXINE SODIUM 50 MCG TABLET PO (05:42)
[2021-02-06 05:48] VITALS: BP 125/50; PULSE 68; RESP 18; TEMP 36.3; O2SAT 97
[2021-02-06 07:49] LABS: Glucose Point of Care 99 (65-105)
[2021-02-06] MEDS: METOPROLOL TARTRATE 25 MG TABLET 75 MG PO (09:08)
[2021-02-06] MEDS: TAMSULOSIN HCL 0.4 MG CAPSULE PO (09:08)
[2021-02-06] MEDS: CLOPIDOGREL BISULFATE 75 MG TABLET PO (09:09)
[2021-02-06] MEDS: VITAMIN B COMPLEX CAPSULE 1 CAP PO (09:09)
[2021-02-06] MEDS: ASPIRIN 81 MG ENTERIC TABLET PO (09:09)
[2021-02-06] MEDS: ISOSORBIDE MONONITRATE 60 MG TAB.ER.24H PO (09:09)
[2021-02-06] MEDS: CHOLECALCIFEROL 1,000 UNITS TABLET 2000 UNITS PO (09:09)
[2021-02-06] MEDS: polyethylene glycoL 3350 17 GM POWD.PACK PO (09:12)
[2021-02-06] MEDS: MULTIVIT W/ IRON, MINERALS 15 ML LIQUID (*BKC) PO (09:12)
[2021-02-06] MEDS: INSULIN DETEMIR 100 UNITS/ML 8 UNITS SUB-Q (09:17)
--- NOTE | 2021-02-06 09:18 | PM.PNGS ---
Progress Note: A&P Assessment and Plan (1) Partial small bowel obstruction: Onset Date: ~02/01/21 Code(s): K56.600 - Partial intestinal obstruction, unspecified as to cause Status: Acute Assessment and Plan: Tolerating soft diet, OK to discharge from surgical standpoint Discussed that parastomal hernia may continue to cause intermittent partial instructions. He needs to lay down and try to reduce hernia if he is feeling that it is protruding more or causing symptoms. May eventually require parastomal hernia repair if this continues. Follow-up with Dr. Cortez in our office in 1 month. (2) Parastomal hernia: Onset Date: ~01/28/21 Code(s): K43.5 - Parastomal hernia without obstruction or gangrene Status: Acute Additional Plan I discussed the plan of care with Dr. Mujica. Subjective Subjective Date/Time Seen: 02/06/21 09:18 Patient reports: no new complaints Interval history: Patient doing well. Tolerating a diet and good colostomy output has continued. He denies abdominal pain, nausea, or vomiting. Review of Systems Review of Systems: All systems reviewed & are unremarkable except as noted in HPI and below Exam Const: General: no acute distress, alert and awake Orientation/consciousness: patient oriented x3 GI: Inspection: non-distended GI Palp: Yes Soft to palpation, No Tenderness to palpation present (GI) and Yes Hernia present (soft, reducible, non-tender parastomal hernia) Other: Left sided colostomy functioning well with stool in bag. Skin: General skin exam: normal color Neuro: General: moves all extremities and no focal motor deficits Extrem: General: no clubbing, cyanosis or edema Psych: Mental Status: mental status grossly normal Insight: Good insight present (Psych) Judgement: Good judgement present (Psych) Objective Data Vital Signs Vital Signs: Vital Signs - 24 hr 02/05/21 14:00 02/05/21 22:00 02/06/21 05:48 Temperature 97.3 F L 97.8 F 97.3 F L Pulse Rate 65 63 68 Respiratory Rate 20 18 18 Blood Pressure 111/56 L 116/53 L 125/50 L Pulse Oximetry 99 99 97 Intake/Output Intake/Output: Intake & Output 02/03/21 02/04/21 02/05/21 02/06/21 23:59 23:59 23:59 23:59 Intake Total 3340 2130 1430 480 Output Total 2805 214 9758 1150 Balance 2115 8080 -867 -223 Meds/Results Medications: Active Medications Generic Name Dose Route Start Last Admin Trade Name Freq PRN Reason Stop Dose Admin Acetaminophen 650 mg 01/17/21 20:44 01/21/21 22:02 Acetaminophen 325 Mg Tablet PO 650 mg Q4H PRN Administration Mild Pain (1-3) or Fever Al Hydrox/Mg Hydrox/Simethicone 30 ml 01/31/21 15:50 02/04/21 21:03 Mag Hydrox/Al Hydrox/Simeth 30 Ml Udc PO 30 ml Q6H PRN Administration Indigestion Aspirin 81 mg 01/21/21 09:00 02/06/21 09:09 Aspirin 81 Mg Enteric Tablet PO 81 mg DAILY GIOVANY Administration Atorvastatin Calcium 40 mg 01/18/21 21:00 02/05/21 20:42 Atorvastatin 40 Mg Tablet PO 40 mg HS GIOVANY Administration Clopidogrel Bisulfate 75 mg 01/21/21 09:00 02/06/21 09:09 Clopidogrel Bisulfate 75 Mg Tablet PO 75 mg QAM GIOVANY Administration Dextrose 12.5 gm 01/17/21 21:14 Dextrose 50% 25 Gm/50 Ml Syringe IV PUSH PRN PRN Hypoglycemia Protocol Epoetin Parrish-epbx 10,000 units 01/20/21 09:00 02/03/21 09:18 Epoetin Parrish-Epbx 10,000 Units/Ml Vial SUB-Q 10,000 units MOWEFR GIOVANY Administration Glucagon 1 mg 01/17/21 21:14 Glucagon For Inj 1 Mg Vial IM PRN PRN Hypoglycemia Protocol Glucose 15 gm 01/17/21 21:14 Glucose Oral Gel 15 Gm Of Glucse In 37.5 Gm Tube PO PRN PRN Hypoglycemia Protocol Dextrose 1,000 mls @ 100 mls/hr 01/17/21 21:14 Dextrose 5% 1,000 Ml IVPB PRN PRN Hypoglycemia Protocol Insulin Aspart 2 - 5 units 01/18/21 11:30 02/06/21 07:50 Insulin Aspart (*Bkc) 100 Units/Ml SUB-Q Not Given ACHS GIOVANY
--- NOTE | 2021-02-06 11:37 | PM.DS ---
DS: Admitting Diagnosis Admitting Diagnosis Admitting Diagnosis: (1) Non-ST elevation PR (NSTEMI): Code(s): I21.4 - Non-ST elevation (NSTEMI) myocardial infarction Status: Acute Assessment and Plan: Admit to IMU, telemetry, NPO after midnight, continue aspirin therapy, trend troponin. continue anticoagulation with IV heparin. check lipid panel in a.m. continue beta-kurtis. Echocardiogram. Cardiology, Dr. Villegas has been consulted by ER provider. Continue Cardiology recommendations. (2) Acute kidney failure: Qualifiers: Acute renal failure type: unspecified Qualified Code(s): N17.9 - Acute kidney failure, unspecified Code(s): N17.9 - Acute kidney failure, unspecified Status: Acute Assessment and Plan: Patient has history of previous renal disease at some point although he tells me he does not have any known chronic kidney disease. Will administer IV fluid challenge overnight. Check urinalysis with microscopy. Check renal ultrasound. Monitor urine output and renal function. Nephrology consultation in a.m.. (3) Elevated troponin: Code(s): R77.8 - Other specified abnormalities of plasma proteins Status: Acute Assessment and Plan: Likely secondary to unstable angina/NSTEMI. Trend troponin (4) Normocytic anemia: Code(s): D64.9 - Anemia, unspecified Status: Acute Assessment and Plan: rule out occult GI bleed. Patient denies any dark black stools or active rectal bleeding. We will monitor H&H and transfuse p.r.n. as the patient is being anticoagulated with IV heparin. (5) Hyperlipidemia: Qualifiers: Hyperlipidemia type: unspecified Qualified Code(s): E78.5 - Hyperlipidemia, unspecified Code(s): E78.5 - Hyperlipidemia, unspecified Status: Chronic Assessment and Plan: Check lipid panel in a.m.. (6) H/O: HTN (hypertension): Code(s): Z86.79 - Personal history of other diseases of the circulatory system Status: Chronic Assessment and Plan: Monitor blood pressure. Continue beta-kurtis. 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 DS: Discharge Diagnosis Discharge Diagnosis (1) Parastomal hernia: Onset Date: ~01/28/21 Code(s): K43.5 - Parastomal hernia without obstruction or gangrene Status: Acute Assessment and Plan: Reduced Will follow up for elective hernia repair in the outpatient setting. (2) Partial small bowel obstruction: Onset Date: ~02/01/21 Code(s): K56.600 - Partial intestinal obstruction, unspecified as to cause Status: Acute Assessment and Plan: Resolved. (3) Nausea & vomiting: Code(s): R11.2 - Nausea with vomiting, unspecified Status: Acute Assessment and Plan: Resolved Tolerating po (4) LBBB (left bundle branch block): Code(s): I44.7 - Left bundle-branch block, unspecified Status: Acute Assessment and Plan: Unchanged. (5) Hydronephrosis, left: Code(s): N13.30 - Unspecified hydronephrosis Status: Acute Assessment and Plan: S/p stent placement (6) Elevated troponin: Onset Date: ~01/26/21 Code(s): R77.8 - Other specified abnormalities of plasma proteins Status: Acute Assessment and Plan: Type ii will follow up in the outpatient setting (7) Acute kidney failure: Qualifiers: Acute renal failure type: unspecified Qualified Code(s): N17.9 - Acute kidney failur
--- NOTE | 2021-03-19 16:51 | PM.IMPN ---
Progress Note: A&P Assessment and Plan (1) Nausea & vomiting: Code(s): R11.2 - Nausea with vomiting, unspecified Status: Acute Assessment and Plan: Improved Continue to monitor Supportive (2) Parastomal hernia: Onset Date: ~01/28/21 Qualifiers: Obstruction and gangrene presence: without obstruction or gangrene Qualified Code(s): K43.5 - Parastomal hernia without obstruction or gangrene Code(s): K43.5 - Parastomal hernia without obstruction or gangrene Status: Acute Assessment and Plan: Status post reduction at bedside (3) Weakness: Code(s): R53.1 - Weakness Status: Acute Assessment and Plan: Likely secondary to prolonged hospitalization PT OT (4) Normocytic anemia: Code(s): D64.9 - Anemia, unspecified Status: Acute Assessment and Plan: Likely secondary to chronic renal disease (5) LBBB (left bundle branch block): Code(s): I44.7 - Left bundle-branch block, unspecified Status: Acute Assessment and Plan: Stable Continue to monitor (6) Hydronephrosis, left: Code(s): N13.30 - Unspecified hydronephrosis Status: Acute Assessment and Plan: Status post stent placement Continue to monitor (7) CAD (coronary artery disease): Code(s): I25.10 - Atherosclerotic heart disease of [place] coronary artery without angina pectoris Status: Acute Assessment and Plan: Stable Chest pain-free (8) Non-ST elevation AR (NSTEMI): Code(s): I21.4 - Non-ST elevation (NSTEMI) myocardial infarction Status: Acute Assessment and Plan: Stable Subjective Date/time seen: 03/19/21 16:51 Patient seen and examined on January 31 late entry note Objective Data Meds/Results Radiology Results: ITS Impressions Renal Ultrasound 01/18/21 11:36 IMPRESSION: 1. Moderate left hydronephrosis of unclear etiology. Retrograde Pyelogram 01/19/21 17:30 IMPRESSION: Fluoroscopy used during XR retrograde pyelo w/stent LT. Chest X-Ray 01/22/21 08:38 IMPRESSION: 1. Cardiomegaly with mild pulmonary edema. 2. Bibasilar airspace opacities, consistent with atelectasis versus pneumonia. 3. Possible left lung nodule. Further evaluation with CT of the chest is recommended. Chest CT 01/23/21 15:01 IMPRESSION: 1. Small bilateral loculated pleural effusions. The chest radiograph abnormality correlates with fluid in the left major fissure. 2. Diffuse lung disease, likely mild pulmonary edema. Abdomen/Pelvis CT 01/26/21 12:04 IMPRESSION: 1. Again seen is a likely early or partial small bowel obstruction secondary to parastomal hernia with couple loops of small bowel with transition point occurring as one of the loops exits the hernia. 2. 12 mm nonobstructing left renal stone with left internal ureteral stent in expected position. 3. A few small groundglass opacities in the bilateral lower lobes which could represent atelectasis, pneumonia or pulmonary edema. 4. Small sliding-type hiatal hernia. 5. Small amount of gas in the otherwise normal bladder. Correlate clinically for recent instrumentation or Romero catheterization and with urinalysis. 6. 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 Abdomen X-Ray 02/04/21 08:27 IMPRESSION: Several loops distended air-filled small bowel without evidence of perforation. Quality VTE Prophylaxis VTE prophylaxis: pharmacologic ordered
== END 2021-02-06 12:35 | disposition home health service (06) | DRG 987 ==
LOC: ANHED 19:29 → ANHIMU 01-18 07:09 → ANHICU 01-20 15:58 → ANH3MEDSUR 02-01 13:25 → ANHICU 02-09 10:43 → ANHIMU 02-09 10:43
PROVIDERS: Emergency Medicine; Internal Medicine; Internal Medicine Cardiovascular Disease; Internal Medicine Nephrology; Urology; Admitting Provider Family Medicine; Emergency Provider Emergency Medicine; PCP Family Medicine; Visit Provider Internal Medicine
PROC: 0T778DZ Dilation of Left Ureter with Intraluminal Device, Via Natural or Artificial Opening Endoscopic (ICD-10-PCS; CPT 52352; principal; 2021-01-19 15:45)
DX: I21.4 Non-ST elevation (NSTEMI) myocardial infarction (principal); I50.31 Acute diastolic (congestive) heart failure; N17.9 Acute kidney failure, unspecified; N13.30 Unspecified hydronephrosis; K43.3 Parastomal hernia with obstruction, without gangrene; I13.0 Hypertensive heart and chronic kidney disease with heart failure and stage 1 through stage 4 chronic kidney disease, or unspecified chronic kidney disease; E11.9 Type 2 diabetes mellitus without complications; E78.5 Hyperlipidemia, unspecified; D64.9 Anemia, unspecified; I25.10 Atherosclerotic heart disease of native coronary artery without angina pectoris; Z95.2 Presence of prosthetic heart valve; I45.5 Other specified heart block; I44.7 Left bundle-branch block, unspecified; E11.22 Type 2 diabetes mellitus with diabetic chronic kidney disease; N18.32 Chronic kidney disease, stage 3b
CPT/HCPCS: 36415; 71045; 71046; 71250; 74018; 74019; 74176; 74420; 76775; 80048; 80053; 80061; 80069; 80076; 81001; 82550; 82570; 82607; 82728; 82746; 82948; 83036; 83540; 83550; 83690; 83735; 83883; 84100; 84155; 84156; 84165; 84166; 84300; 84443; 84484; 84550; 85025; 85027; 85610; 85730; 86038; 86140; 86160; 86162; 86334; 93005; 94640; 96365; 96375; 97110; 97116; 97161; 97165; 97530; 97535; 99291; A9270; C1758; C1769; C2617; C8929; J1644; J1815; J1940; J2060; J2405; J2550; J2704; J3010; J3475; J7030; J7040; J7120; Q5106; Q9957; Q9966

== ENCOUNTER 2021-02-16 16:19 | Emergency (ER) | payer MEDICARE, SELFPAY ==
[2021-02-16 16:44] VITALS: BP 116/65; PULSE 71; RESP 16; TEMP 36.3; O2SAT 100
[2021-02-16 16:55] LABS: Basophils Percent Auto 0.6 % (0.2-1.2); Eosinophils Absolute Auto 0.2 K/mm3 (0-0.3); Eosinophils Percent Auto 2.9 % (0-4.4); Hematocrit 31.6 % (42.0-52.0); Hemoglobin 10.2 g/dL (14.0-18.0); Immature Granulocyte Absolute 0.02 K/mm3 (0.00-0.031); Immature Granulocyte Percent A 0.3 % (0-0.5); Lymphocytes Absolute Auto 2.34 K/mm3 (0.9-3.2); Lymphocytes Percent Auto 33.4 % (18.3-44.2); Mean Corpuscular HGB Conc 32.3 g/dl (32-36); Mean Corpuscular Hemoglobin 31.4 pg (26-34); Mean Corpuscular Volume 97.2 fl (80-100); Mean Platelet Volume 9.5 fl (7.4-10.4); Monocytes Absolute Auto 0.8 K/mm3 (0.1-0.6); Monocytes Percent Auto 11.4 % (2.6-8.5); Neutrophils Absolute Auto 3.6 K/mm3 (1.3-6.7); Neutrophils Percent Auto 51.4 % (45.5-73.1); Platelet Count Result 266 k/mm3 (150-375); Red Blood Count 3.25 M/mm3 (4.6-6.20); Red Cell Distribution Width 15.2 % (11.5-14.5)
[2021-02-16 16:58] LABS: Add Urine Microscopic? YES; Appearance Urine Clear (Clear); Bilirubin Urine Negative (Negative); Blood Urine Negative (Negative); Color Urine Straw (Yellow); Glucose Urine UA 2+ mg/dL (Negative); Ketones Urine Negative (Negative); Leukocyte Esterase Ur 1+ LEU/UL (Negative); Nitrate Urine Negative (Negative); Protein Urine Negative (Negative); RBC Urine 0-2 /hpf (0-2); Specific Grav Ur 1.008 (1.001-1.035); Urobilinogen Urine Negative mg/dL (<2.0)
[2021-02-16 17:10] LABS: Alanine Aminotransferase 14 U/L (4-50); Albumin Level 3.8 g/dL (3.5-5.1); Alkaline Phosphatase 79 U/L (38-126); Anion Gap 6 mmol/L (8-16); Aspartate Amino Transferase 23 U/L (17-59); Bilirubin,Total 0.5 mg/dL (0.2-1.3); Blood Urea Nitrogen 24 mg/dL (9-20); Calcium 8.8 mg/dL (8.4-10.2); Carbon Dioxide 27 mmol/L (22-30); Chloride 102 mmol/L (98-107); Estimated CRCL calculation 33 ml/min; Estimated Glomerular Filt Rate 42; Glucose 311 mg/dL (75-110); Potassium 3.8 mmol/L (3.4-5.0); Sodium 135 mmol/L (137-145)
--- NOTE | 2021-02-16 19:10 | ED.GENADULT ---
HPI - General Adult General Chief complaint: Urogenital-Male Stated complaint: urinary retention Time Seen by Provider: 02/16/21 17:15 Source: patient Mode of arrival: ambulatory Limitations: no limitations History of Present Illness HPI narrative: Patient is an 80-year-old female who presents to emergency department for evaluation of having slight burning with urination earlier today was concern for possible urinary tract infection patient was recently released from the hospital. Patient lying in the emergency department has no complaints feels fine and is able to urinate without difficulty. Related Data Home Medications Medication Instructions Recorded Confirmed aspirin 325 mg PO DAILY 01/17/21 01/17/21 atorvastatin 40 mg PO HS 01/17/21 01/17/21 cholecalciferol (vitamin D3) 50 mcg PO DAILY 01/17/21 01/17/21 furosemide 40 mg PO DAILY 01/17/21 01/17/21 levothyroxine [Synthroid] 50 mcg PO DAILY 01/17/21 01/17/21 losartan 25 mg PO DAILY 01/17/21 01/17/21 metoprolol tartrate 25 mg PO BID 01/17/21 01/17/21 omega 5-xix-isf-fish oil [Fish Oil] 1,200 cap PO DAILY 01/17/21 01/17/21 potassium chloride 20 meq PO DAILY 01/17/21 01/17/21 tamsulosin [Flomax] 0.4 mg PO DAILY 01/17/21 01/17/21 vitamin B complex 1 cap PO DAILY 01/17/21 01/17/21 Allergies Allergy/AdvReac Type Severity Reaction Status Date / Time codeine Allergy Unknown Unknown Verified 02/16/21 17:44 doxazosin Allergy Unknown Unknown Verified 02/16/21 17:44 egg Allergy Unknown Unknown Verified 02/16/21 17:44 erythromycin base Allergy Unknown Unknown Verified 02/16/21 17:44 Influenza Virus Vaccines Allergy Unknown Unknown Verified 02/16/21 17:44 lisinopril Allergy Unknown Unknown Verified 02/16/21 17:44 metformin Allergy Unknown Unknown Verified 02/16/21 17:44 Penicillins Allergy Unknown Unknown Verified 02/16/21 17:44 Review of Systems Review of Systems: All systems reviewed & are unremarkable except as noted in HPI and below PMFSH Past Medical History Medical History CAD (coronary artery disease) Diabetes mellitus H/O: HTN (hypertension) History of rectal cancer Hyperlipidemia LBBB (left bundle branch block) Surgical History Surgical History History of aortic valve replacement History of colon resection Exploratory laparotomy with abdominoperineal resection as well as a left inguinal hernia repair in December [address] Oliver for rectal cancer. History of coronary artery bypass graft History of left inguinal hernia repair Repair of left inguinal hernia during colon resection in December 2004 and then repair of recurrent left inguinal hernia with mesh in May 2005. Family History Family History Father Heart disease Mother Heart disease Asthma Sibling Heart disease Social History Social History Smoking packs per day: 2 Smoking cigarettes per day: 40.0 Years smoked: 47 Smoking pack-years: 94.00 Smoking status: Former smoker Tobacco type: cigarettes Second hand tobacco smoke exposure: Yes Smoking end date: 12/02/96 Alcohol intake: never Substance use: never Gender identity (if verbalized by the patient): Male Spiritual care concerns: No Exam Narrative: Exam Narrative: GENERAL: Well-appearing, well-nourished, and in no acute distress. HEAD: Normocephalic, atraumatic. EYES: PERRLA and EOMI. ENT: Nares clear, no rhinorrhea or epistaxis. Mucous membranes moist. CHEST: Clear to auscultation. No respiratory distress. No wheezes rales or rhonchi HEART: Regular rate and rhythm. No murmur heard. Normal peripheral pulses. ABDOMEN: Soft, nontender, nondistended EXTREMITIES: Normal range of motion. No edema. SKIN: Warm, dry, no rash. NEURO: No focal deficits. Alert and oriented x3. Cranial nerves II throu
[2021-02-16 19:25] VITALS: BP 151/69; PULSE 63; RESP 18; O2SAT 100
== END 2021-02-16 19:27 | disposition home or self-care (01) ==
PROVIDERS: Emergency Medicine; Emergency Provider Emergency Medicine; PCP Family Medicine
DX: R30.0 Dysuria (principal); Z79.82 Long term (current) use of aspirin; I25.10 Atherosclerotic heart disease of native coronary artery without angina pectoris; E11.9 Type 2 diabetes mellitus without complications; I10 Essential (primary) hypertension; E78.5 Hyperlipidemia, unspecified; Z85.528 Personal history of other malignant neoplasm of kidney; Z95.2 Presence of prosthetic heart valve; Z90.49 Acquired absence of other specified parts of digestive tract; Z87.891 Personal history of nicotine dependence
CPT/HCPCS: 36415; 80053; 81001; 85025; 99283

== ENCOUNTER 2021-03-20 16:10 | Outpatient (CLI) | payer MEDICARE, SELFPAY | END 2021-03-20 16:11 | disposition home or self-care (01) | LOC: ANHCOVIDVC 16:10 | PROVIDERS: PCP Family Medicine | DX: Z23 Encounter for immunization (principal) | CPT/HCPCS: 0001A; 91300 ==

== ENCOUNTER 2021-04-10 15:50 | Outpatient (CLI) | payer MEDICARE, SELFPAY | END 2021-04-10 15:51 | disposition home or self-care (01) | LOC: ANHCOVIDVC 15:50 | PROVIDERS: PCP Family Medicine | DX: Z23 Encounter for immunization (principal) | CPT/HCPCS: 0002A; 91300 ==

== ENCOUNTER 2021-09-22 00:07 | Day surgery (SDC) | payer MEDICARE, SELFPAY ==
[2021-09-18 16:11] VITALS: BMI 32.0
--- NOTE | 2021-09-21 06:41 | WPDHPUPDATE1 ---
History and Physical Update Update Date/Time: 09/21/21 06:41 History and Physical has been reviewed, including an updated exam of the patient. There are NO changes in the patient's condition. Risks, benefits, and alternatives have been discussed and questions answered. Patient agrees to proceed with procedure.
--- NOTE | 2021-09-21 12:37 | PC.NURSE ---
Pt states no changes in health history or medications since initial interview. New pre-op instructions reviewed with pt. Pt denies any questions at this time.
--- NOTE | ~2021-09-22 | XR_ITS ---
EXAMINATION: XR retrograde pyelo w/stent LT DATE: 09/22/2021 14:09 INDICATION: Left internal ureteral stent placement TECHNIQUE: Fluoroscopic images from a left internal ureteral stent placement are submitted for review . 51 seconds of fluoroscopy time. 113 fluoroscopic images. FINDINGS: There is a left double-J internal ureteral stent projecting in expected position, with proximal [place] loop at the level of the renal pelvis and distal loop in the pelvis within the bladder lumen. IMPRESSION: 1. Left internal ureteral stent placement. Please refer to real-time procedural findings for detail s. Reviewed, dictated and finalized at location B. IMPRESSION: 1. Left internal ureteral stent placement. Please refer to real-time procedur al findings for details.
--- NOTE | 2021-09-22 06:54 | WPDHPUPDATE1 ---
History and Physical Update Update Date/Time: 09/22/21 06:54 History and Physical has been reviewed, including an updated exam of the patient. There are NO changes in the patient's condition. Risks, benefits, and alternatives have been discussed and questions answered. Patient agrees to proceed with procedure.
[2021-09-22 12:02] VITALS: BP 145/60; PULSE 62; RESP 16; TEMP 36.6; O2SAT 100
--- NOTE | 2021-09-22 12:05 | PM.HPGS ---
History of Present Illness History of Present Illness Consent: Risks, benefits, and alternatives have been discussed and questions answered. Patient agrees to proceed with procedure. Chief complaint: left hydronephrosis, urinary tract infection Narrative: Mauricio Garces is a 81 year old male who I initially saw in January 2021 when he was admitted with gross hematuria and acute kidney failure.. Around that time serum creatinine was around 9.0. Renal ultrasound showed left hydronephrosis. Underwent cystoscopy with clot evacuation left ureteral stent placement. Retrograde pyelography suggested narrowing in the mid left ureter. He now presents for more definitive evaluation. He is known to have a nonobstructing 12mm a stone in his left kidney Review of Systems Cardiovascular: Cardiovascular: Denies chest pain, Denies lightheadedness, Denies palpitations and Denies dyspnea Respiratory: Respiratory: Denies dyspnea Gastrointestinal: Gastrointestinal: Denies diarrhea, Denies nausea and Denies vomiting Genitourinary: Genitourinary: Denies hematuria and Denies dysuria Endocrine: Endocrine: Denies palpitations [facility] Past Medical History Medical History CAD (coronary artery disease) Diabetes mellitus H/O: HTN (hypertension) History of rectal cancer Hyperlipidemia LBBB (left bundle branch block) Surgical History Surgical History History of aortic valve replacement History of colon resection Exploratory laparotomy with abdominoperineal resection as well as a left inguinal hernia repair in December [address] Oliver for rectal cancer. History of coronary artery bypass graft History of left inguinal hernia repair Repair of left inguinal hernia during colon resection in December 2004 and then repair of recurrent left inguinal hernia with mesh in May 2005. Family History Family History Father Heart disease Mother Heart disease Asthma Sibling Heart disease Social History Social History Smoking packs per day: 2 Smoking cigarettes per day: 40.0 Years smoked: 47 Smoking pack-years: 94.00 Smoking status: Former smoker Tobacco type: cigarettes Second hand tobacco smoke exposure: Yes Smoking end date: 12/02/96 Alcohol intake: never Substance use: never Living arrangements: with family Gender identity (if verbalized by the patient): Male Spiritual care concerns: No Meds Home Medications and Allergies Home Medications Medication Instructions Recorded Confirmed Type aspirin 81 mg PO DAILY 01/17/21 09/22/21 History atorvastatin 40 mg PO HS 01/17/21 09/22/21 History cholecalciferol (vitamin D3) 50 mcg PO DAILY 01/17/21 09/22/21 History furosemide 40 mg PO DAILY 01/17/21 09/22/21 History levothyroxine [Synthroid] 50 mcg PO DAILY 01/17/21 09/22/21 History losartan 25 mg PO DAILY 01/17/21 09/22/21 History metoprolol tartrate 25 mg PO BID 01/17/21 09/22/21 History omega 2-kzw-szi-fish oil [Fish Oil] 1,200 cap PO DAILY 01/17/21 09/22/21 History potassium chloride 20 meq PO DAILY 01/17/21 09/22/21 History tamsulosin [Flomax] 0.4 mg PO DAILY 01/17/21 09/22/21 History vitamin B complex 1 cap PO DAILY 01/17/21 09/22/21 History insulin aspart U-100 18 unit SUBCUT QAM 09/18/21 09/22/21 History insulin glargine 61 unit SUBCUT HS 09/18/21 09/22/21 History Allergies Allergy/AdvReac Type Severity Reaction Status Date / Time codeine Allergy Unknown Hives Verified 09/22/21 11:33 doxazosin Allergy Unknown Unknown Verified 09/22/21 11:33 egg Allergy Unknown Nausea Verified 09/22/21 11:33 erythromycin base Allergy Unknown Fever Verified 09/22/21 11:33 Influenza Virus Vaccines Allergy Unknown Unknown Verified 09/22/21 11:33 lisinopril Allergy Unknown Unknown Verified 09/22/21 11:33 metformin
[2021-09-22 12:12] LABS: Anion Gap 8 mmol/L (8-16); Blood Urea Nitrogen 22 mg/dL (9-20); Calcium 9.2 mg/dL (8.4-10.2); Carbon Dioxide 25 mmol/L (22-30); Chloride 106 mmol/L (98-107); Estimated CRCL calculation 37 ml/min; Estimated Glomerular Filt Rate 42; Glucose 127 mg/dL (65-110); Potassium 4.1 mmol/L (3.4-5.0); Sodium 139 mmol/L (137-145)
--- NOTE | 2021-09-22 12:20 | WPDANESEPPF ---
Anes - Initial Pre Proc Eval Procedure: Operation Date: 09/22/21 13:00 Proposed Procedures p Cystoscopy, Left Ureteral Stent Removal, Left Retrograde Pyelography, Possible Left Stent Insertion - Leighton Antonio MD Date/Time: 09/22/21 12:20 Surgeon: Leighton Antonio MD Pre Op Diagnosis: left hydronephrosis, urinary tract infection Patient Data Age: 81 Gender: M Height: 1.77 m Weight: 97.8 kg Last Vital Signs Temp 36.6 C 09/22/21 12:02 Pulse 62 09/22/21 12:02 Resp 16 09/22/21 12:02 BP 145/60 H 09/22/21 12:02 Pulse Ox 100 09/22/21 12:02 Allergies Allergy/AdvReac Type Severity Reaction Status Date / Time codeine Allergy Unknown Hives Verified 09/22/21 11:33 doxazosin Allergy Unknown Unknown Verified 09/22/21 11:33 egg Allergy Unknown Nausea Verified 09/22/21 11:33 erythromycin base Allergy Unknown Fever Verified 09/22/21 11:33 Influenza Virus Vaccines Allergy Unknown Unknown Verified 09/22/21 11:33 lisinopril Allergy Unknown Unknown Verified 09/22/21 11:33 metformin Allergy Unknown Unknown Verified 09/22/21 11:33 Penicillins Allergy Unknown Unknown Verified 09/22/21 11:33 Home Medications Medication Instructions Recorded Confirmed Type aspirin 81 mg PO DAILY 01/17/21 09/22/21 History atorvastatin 40 mg PO HS 01/17/21 09/22/21 History cholecalciferol (vitamin D3) 50 mcg PO DAILY 01/17/21 09/22/21 History furosemide 40 mg PO DAILY 01/17/21 09/22/21 History levothyroxine [Synthroid] 50 mcg PO DAILY 01/17/21 09/22/21 History losartan 25 mg PO DAILY 01/17/21 09/22/21 History metoprolol tartrate 25 mg PO BID 01/17/21 09/22/21 History omega 6-smi-eyp-fish oil [Fish Oil] 1,200 cap PO DAILY 01/17/21 09/22/21 History potassium chloride 20 meq PO DAILY 01/17/21 09/22/21 History tamsulosin [Flomax] 0.4 mg PO DAILY 01/17/21 09/22/21 History vitamin B complex 1 cap PO DAILY 01/17/21 09/22/21 History insulin aspart U-100 18 unit SUBCUT QAM 09/18/21 09/22/21 History insulin glargine 61 unit SUBCUT HS 09/18/21 09/22/21 History Laboratory Tests 09/22/21 11:49 Sodium 139 mmol/L mmol/L (137-145) Potassium 4.1 mmol/L mmol/L (3.4-5.0) Chloride 106 mmol/L mmol/L (98-107) Carbon Dioxide 25 mmol/L mmol/L (22-30) Anion Gap 8 mmol/L mmol/L (8-16) BUN 22 mg/dL H mg/dL (9-20) Creatinine 1.60 mg/dL H mg/dL (0.7-1.3) Estim Creat Clear Calc 37 ml/min ml/min Estimated GFR 42 L (59 - ) Glucose 127 mg/dL H mg/dL (65-110) Calcium 9.2 mg/dL mg/dL (8.4-10.2) Patient hx anesthesia problems: none Family hx anesthesia problems: none Results Review: All pre-operative results and documents have been reviewed as part of the pre-operative evaluation. [facility] Past Medical History Medical History CAD (coronary artery disease) Diabetes mellitus H/O: HTN (hypertension) History of rectal cancer Hyperlipidemia LBBB (left bundle branch block) Surgical History Surgical History History of aortic valve replacement History of colon resection Exploratory laparotomy with abdominoperineal resection as well as a left inguinal hernia repair in December [address] Oliver for rectal cancer. History of coronary artery bypass graft History of left inguinal hernia repair Repair of left inguinal hernia during colon resection in December 2004 and then repair of recurrent left inguinal hernia with mesh in May 2005. Family History Family History Father Heart disease Mother Heart disease Asthma Sibling Heart disease Social History Social History Smoking packs per day: 2 Smoking cigarettes per day: 40.0 Years smoked: 47 Smoking pack-years: 94.00 Smoking status: Former smoker Tobacco type: cigarettes Second hand tobacco smoke exposure: Yes
[2021-09-22] MEDS: LACTATED RINGERS 1,000 ML 30 ML IV CONT (12:24)
[2021-09-22] MEDS: ceFAZolin 2 GM/D5W 50 ML 2 GM/50 ML BAG IVPB (13:29)
--- NOTE | 2021-09-22 14:02 | SUR.OPER ---
very large left testicle very hard and Dr Antonio informed at start of surgery.
[2021-09-22] MEDS: LIDOCAINE HCL 2% GEL UROJET 10 ML PKG MUCOUS MEM (14:03)
--- NOTE | 2021-09-22 14:05 | W.PM.PROC2 ---
Procedure Note - Detailed Date of Procedure 09/22/21 Pre-op Diagnosis Left hydronephrosis, urinary tract infection Post-op Diagnosis other (Left renal calculus, left hydrocele) Procedure Performed Cystoscopy, left ureteral stent removal, left ureteroscopy, left retrograde pyelography and left ureteral stent replacement Surgeon Leighton Antonio MD Anesthesia general Description of Procedure Patient brought to the office where he has prepped draped in routine sterile fashion while in dorsal lithotomy position after the uneventful induction of a general anesthetic. Cystoscopy is undertaken with a 19 F rigid cystoscope. There was no urethral stricture. He has moderate prostatic hyperplasia with predominantly median lobe enlargement. The bladder was slightly trabeculated but without cellule or diverticular formation. He has an indwelling left ureteral stent without other foreign bodies. There was no intravesical neoplasm. I removed the left ureteral stent obtained left retrograde pyelogram with an angiographic catheter. There was no apparent filling defects or points of obstruction. Does have a calcified 12 mm left lower pole calyx as previously identified on the CT scan last January. 0.035 in glidewire was advanced in the renal pelvis and ureteral renoscopy was undertaken with a digital 7.5 F flexible ureteral scope. Of the stone there is no upper tract pathology. There was no neoplasm. This point I opted to remove the ureteral scope and replaced the 4.8 F variable length stent. I will plan outpatient ESWL for the large stone. He also has swelling of his left hemiscrotum. The ultrasonography demonstrates hydrocele we can offer him a simultaneous hydrocelectomy Estimated Blood Loss 0 Drains No Packing No Pathology none sent Complications No immediate complications Condition stable Disposition PACU
[2021-09-22 14:14] VITALS: BP 140/58; PULSE 54; RESP 14; TEMP 36.6; O2SAT 100
[2021-09-22 14:25] VITALS: BP 135/59; PULSE 53; RESP 12; O2SAT 100
[2021-09-22 14:36] LABS: Glucose Point of Care 107 mg/dl (65-105)
[2021-09-22 14:40] VITALS: BP 140/60; PULSE 57; RESP 13; O2SAT 99
[2021-09-22 14:50] VITALS: BP 143/60; PULSE 55; RESP 13; O2SAT 98
[2021-09-22 15:01] VITALS: BP 156/66; PULSE 55; RESP 16
== END 2021-09-22 15:43 | disposition home or self-care (01) ==
PROVIDERS: Anesthesiology; PCP Family Medicine; Visit Provider Urology
PROC: (CPT 52352; principal; 2021-09-22 13:00)
DX: N39.0 Urinary tract infection, site not specified (principal); N13.2 Hydronephrosis with renal and ureteral calculous obstruction; N43.3 Hydrocele, unspecified; N40.1 Benign prostatic hyperplasia with lower urinary tract symptoms; N50.89 Other specified disorders of the male genital organs; Z79.82 Long term (current) use of aspirin; Z79.4 Long term (current) use of insulin; I25.10 Atherosclerotic heart disease of native coronary artery without angina pectoris; E11.9 Type 2 diabetes mellitus without complications; Z85.048 Personal history of other malignant neoplasm of rectum, rectosigmoid junction, and anus; I44.7 Left bundle-branch block, unspecified; I12.9 Hypertensive chronic kidney disease with stage 1 through stage 4 chronic kidney disease, or unspecified chronic kidney disease; E78.5 Hyperlipidemia, unspecified; Z87.891 Personal history of nicotine dependence; E66.9 Obesity, unspecified; Z68.31 Body mass index [BMI] 31.0-31.9, adult; E03.9 Hypothyroidism, unspecified; N18.32 Chronic kidney disease, stage 3b
CPT/HCPCS: 52332; 36415; 74420; 80048; 82948; A9270; C1769; C1887; C2617; J0690; J1100; J2405; J2704; J3010; J7120; Q9966

== ENCOUNTER 2021-10-06 03:54 | Day surgery (SDC) | payer MEDICARE, SELFPAY ==
[2021-10-04 12:08] VITALS: BMI 32.0
--- NOTE | 2021-10-04 12:11 | PC.NURSE ---
Report to the Outpatient Waiting Room, entrance under the green pavilion located off [facility], at time _1100 on date ___10/06/21____. OR Time: __1:00 PM . - You and your visitor will be asked a series of questions to screen for COVID 19 for your protection. - A mask is required within the hospital. - Only one visitor is allowed at this time. Patient visitors will be guided where to wait when not with patient. Preoperative COVID Testing Requirements: No COVID Test needed if: (proof is required; if not received patient will have Rapid Test prior to entry) - Patient has received COVID Vaccine at least 14 days prior to procedure date or - Patient has positive COVID test result within last 90 days of surgery date. COVID Test needed if above criteria is not met If not COVID vaccinated a COVID test must be conducted within 72 hours of surgery and patient is asked to isolate self from time of testing until procedure. You will go to the [employer] [facility] for your COVID testing. The [employer] [facility] is located at the corner of [address] [facility]. You will only be called if COVID results are positive and your surgeon may reschedule your elective surgery date. Patients may have clear liquids (water, carbonated beverages, clear teas, apple juice) until 3 hours prior to surgery with a maximum of 20 ounces. - No food from midnight until time of surgery - Infants may have breast milk until 4 hours before surgery, infant formula 6 hours prior to surgery. - Children will be allowed to drink immediately following surgery. If applicable, please bring a bottle or sippy cup to assist with drinking. Juice, water, soda, and popsicles are readily available. For infants on formula, please bring formula the day of surgery. Pacifiers are allowed. Take the following medications with a SIP of water the morning of surgery: LEVOTHYROXINE,METOPROLOL Medications to discontinue per physician ASPIRIN PT STATES LAST DOSE 10/03/21 Date to take last dose_STOP ALL VITAMINS OF NOW Please no make-up, nail persian, hairspray, perfume, deodorant, or body powder the day of surgery. No jewelry (including any body piercings) or valuables the day of surgery, leave them at home. Please take a shower or bath the night before, or the morning of, surgery with an antibacterial soap. Wear comfortable, loose fitting clothing. Children are encouraged to wear pajamas. - Jewelry must be removed prior to entering the operating room. Rings and piercings that are not removed may be cut off. - The hospital will not accept responsibility for valuables. - Please leave all valuables, including medications, at home the day of surgery. If you are going home after surgery, a licensed wheelchair van driver must drive you home. - NO public transportation without another adult. - We recommend that an adult stay with you for 24 hours following discharge. - We also recommend that you do not drive, make important decision, drink alcoholic beverages, or take any drugs that were not prescribed by your health care provider for at least 24 hours after your discharge time. For Pediatric surgeries, we recommend two adults accompany the child home (only one inside the building at this time). Follow any additional instructions given to you from your surgeon. Telephone instructions given to PATIENT and asked if any additional questions and then verbalized understanding. Patient advised to call surgeon office or pre surgery nurse liaison [phone] if any additional questions.
[2021-10-06] VITALS (8 sets, daily range): BP systolic 125–154; BP diastolic 54–74; PULSE 54–73; RESP 10–18; TEMP 36.5; O2SAT 98–100
--- NOTE | ~2021-10-06 | XR_ITS ---
EXAMINATION: XR abdomen/kub 1V INDICATION: Urolithiasis TECHNIQUE: Supine views of the abdomen were obtained on 2 radiographs. COMPARISON: 01/31/2021 FINDINGS: A left internal ureteral stent is in expected position. There is a 1.8 cm stone adjacent to the proximal aspect of the stent. There are phleboliths in the pelvis. Also noted are surgical clips in the pelvis. There is mild osteoarthritis of the hips. The bowel gas pattern is normal. IMPRESSION: 1. Left internal ureteral stent in expected position with 1.8 cm stone adjacent to the proximal stent . Reviewed, dictated and finalized at location B. IMPRESSION: 1. Left internal ureteral stent in expected position with 1.8 cm stone adjacent to the proximal stent.
--- NOTE | 2021-10-06 06:49 | WPDHPUPDATE1 ---
History and Physical Update Update Date/Time: 10/06/21 06:49 History and Physical has been reviewed, including an updated exam of the patient. There are NO changes in the patient's condition. Risks, benefits, and alternatives have been discussed and questions answered. Patient agrees to proceed with procedure.
--- NOTE | 2021-10-06 12:05 | WPDANESEPPF ---
Anes - Initial Pre Proc Eval Procedure: Operation Date: 10/06/21 13:00 Proposed Procedures p Left Renal Extracorporeal Shock Wave Lithotripsy - Leighton Antonio MD s Scrotal Exploration, Excision of Left Scrotal Mass - Leighton Antonio MD Date/Time: 10/06/21 12:05 Surgeon: Leighton Antonio MD Pre Op Diagnosis: Lt Renal Stone, Lt Scrotal Mass Patient Data Age: 81 Gender: M Height: 1.77 m Weight: 99.8 kg Allergies Allergy/AdvReac Type Severity Reaction Status Date / Time codeine Allergy Unknown Hives Verified 10/04/21 12:03 doxazosin Allergy Unknown Unknown Verified 10/04/21 12:03 egg Allergy Unknown Nausea Verified 10/04/21 12:03 erythromycin base Allergy Unknown Fever Verified 10/04/21 12:03 Influenza Virus Vaccines Allergy Unknown Unknown Verified 10/04/21 12:03 lisinopril Allergy Unknown Unknown Verified 10/04/21 12:03 metformin Allergy Unknown Unknown Verified 10/04/21 12:03 Penicillins Allergy Unknown Unknown Verified 10/04/21 12:03 Home Medications Medication Instructions Recorded Confirmed Type aspirin 81 mg PO DAILY 01/17/21 10/04/21 History atorvastatin 40 mg PO HS 01/17/21 10/04/21 History cholecalciferol (vitamin D3) 50 mcg PO DAILY 01/17/21 10/04/21 History furosemide 40 mg PO DAILY 01/17/21 10/04/21 History levothyroxine [Synthroid] 50 mcg PO DAILY 01/17/21 10/04/21 History losartan 25 mg PO DAILY 01/17/21 10/04/21 History metoprolol tartrate 25 mg PO BID 01/17/21 10/04/21 History omega 5-ntu-bbi-fish oil [Fish Oil] 1,200 cap PO DAILY 01/17/21 10/04/21 History potassium chloride 20 meq PO DAILY 01/17/21 10/04/21 History tamsulosin [Flomax] 0.4 mg PO DAILY 01/17/21 10/04/21 History vitamin B complex 1 cap PO DAILY 01/17/21 10/04/21 History insulin aspart U-100 18 unit SUBCUT QAM 09/18/21 10/04/21 History insulin glargine 61 unit SUBCUT HS 09/18/21 10/04/21 History ciprofloxacin HCl 500 mg PO Q12H #6 tablet 09/22/21 10/04/21 Rx hydrocodone-acetaminophen 1 - 2 tablet PO Q6H PRN #20 tablet 09/22/21 10/04/21 Rx Patient hx anesthesia problems: none Family hx anesthesia problems: none Results Review: All pre-operative results and documents have been reviewed as part of the pre-operative evaluation. [facility] Past Medical History Medical History CAD (coronary artery disease) Diabetes mellitus H/O: HTN (hypertension) History of rectal cancer Hyperlipidemia LBBB (left bundle branch block) Surgical History Surgical History History of aortic valve replacement History of colon resection Exploratory laparotomy with abdominoperineal resection as well as a left inguinal hernia repair in December [address] Oliver for rectal cancer. History of coronary artery bypass graft History of left inguinal hernia repair Repair of left inguinal hernia during colon resection in December 2004 and then repair of recurrent left inguinal hernia with mesh in May 2005. Family History Family History Father Heart disease Mother Heart disease Asthma Sibling Heart disease Social History Social History Smoking packs per day: 2 Smoking cigarettes per day: 40.0 Years smoked: 47 Smoking pack-years: 94.00 Smoking status: Former smoker Tobacco type: cigarettes Second hand tobacco smoke exposure: Yes Smoking end date: 12/02/96 Alcohol intake: never Substance use: never Living arrangements: with family Gender identity (if verbalized by the patient): Male Spiritual care concerns: No Anes - Eval Final PreProcedure Day of Procedure 10/06/21 12:05 Patient weight: obese Heart: regular rate and rhythm Lungs: clear to auscultation Airway: Mallampati scale class III Neurological: alert and oriented Last oral intake: >/= 8 hours ASA classification: IV Emergent: no Anesthetic plan:
[2021-10-06 12:09] LABS: Glucose Point of Care 84 mg/dl (65-105)
[2021-10-06] MEDS: LACTATED RINGERS 1,000 ML 30 ML IV CONT ×2 (12:14→14:27)
[2021-10-06 12:30] LABS: Prothrombin Time 12.7 Seconds (11.1-14.7)
[2021-10-06 12:31] LABS: Partial Thromboplastin Time 26.1 SECONDS (22.3-36.8)
[2021-10-06] MEDS: ceFAZolin 2 GM/D5W 50 ML 2 GM/50 ML BAG IVPB (12:41)
--- NOTE | 2021-10-06 13:47 | W.PM.PROC2 ---
Procedure Note - Detailed Date of Procedure 10/06/21 Pre-op Diagnosis Lt Renal Stone, Lt Scrotal Mass Post-op Diagnosis other (Left renal stone, hemorrhagic/necrotic left testicle) Procedure Performed The patient was brought to the operative suite where he was prepped and draped in routine sterile fashion while in a supine position after the uneventful induction of a general LMA anesthetic. An incision was made in the median raphe of the scrotum and dissection was carried into the left hemiscrotum. The entire left hemiscrotum is filled with a solid, large, solitary mass. This mass is dissected from the overlying dartos muscle to a point where it is attached only by the spermatic cord. The mass is opened and inspected. 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 I decided to proceed with left orchiectomy. The spermatic cord is devided and secured with 0-silk ligatures follwed by 0-silk ties. The testicle is excised and the scrotum is irrigate with saline. The dartos is closed with a running 3-0 Chromic and skin is, likewise, closed with a 3-0 Chromic. A sterile dressing applied. The patient was then placed in the supine position on the Dornier lithotripsy table. The focal point of the lithotripter was placed at a 12mmleft UPJ calculus. A total of 2500 shocks were delivered at a power setting of 4. There appeared to be good fragmentation of the stone. The patient tolerated the procedure well and was taken to the recovery room in good condition. y. Patient tolerated the procedure well and was taken to the recovery room in good condition. Surgeon Leighton Antonio MD Anesthesia general Description of Procedure Left orchiectomy Left ESWL Estimated Blood Loss 10 Drains No Packing No Pathology yes Complications No immediate complications Condition stable Disposition PACU
== END 2021-10-06 16:23 | disposition home or self-care (01) ==
PROVIDERS: Anesthesiology; PCP Family Medicine; Visit Provider Urology
PROC: (CPT 50590; principal; 2021-10-06 13:00)
PROC: (CPT 55110; 2021-10-06 13:00)
DX: N20.0 Calculus of kidney (principal); N50.0 Atrophy of testis; Z79.4 Long term (current) use of insulin; Z79.82 Long term (current) use of aspirin; I25.10 Atherosclerotic heart disease of native coronary artery without angina pectoris; E11.9 Type 2 diabetes mellitus without complications; E78.5 Hyperlipidemia, unspecified; I10 Essential (primary) hypertension; I44.7 Left bundle-branch block, unspecified; Z85.048 Personal history of other malignant neoplasm of rectum, rectosigmoid junction, and anus; Z87.891 Personal history of nicotine dependence; E66.9 Obesity, unspecified; Z68.32 Body mass index [BMI] 32.0-32.9, adult
CPT/HCPCS: 54520; 50590; 36415; 74018; 82948; 85610; 85730; 88304; 88305; J0690; J1100; J2405; J2704; J3010; J7120

== ENCOUNTER 2021-11-03 14:19 | Outpatient (CLI) | payer MEDICARE, SELFPAY ==
--- NOTE | ~2021-11-03 | XR_ITS ---
EXAMINATION: XR abdomen/kub 1V DATE: 11/03/2021 14:40 INDICATION: Left hydronephrosis. TECHNIQUE: A supine view of the abdomen on 2 radiographs was obtained. COMPARISON: CT abdomen and pelvis 01/26/2021 FINDINGS: There are no dilated loops of bowel. There are fluid levels in the pelvis. There is a left internal ureteral stent in expected position. Surgical clips overlie the sacrum. IMPRESSION: 1. Left internal ureteral stent in expected position. No visible urolithiasis. Reviewed, dictated and finalized at location A. IT INTERN
== END 2021-11-03 14:20 | disposition home or self-care (01) ==
LOC: ANHIMG 14:24
PROVIDERS: PCP Family Medicine; Visit Provider Urology
DX: N13.30 Unspecified hydronephrosis (principal)
CPT/HCPCS: 74018

== ENCOUNTER 2022-02-21 02:41 | Emergency (ER) | payer MEDICARE, SELFPAY ==
--- NOTE | ~2022-02-21 | XR_ITS ---
XR hip RT 2V w AP pelvis 02/21/2022 03:35 Indication: Right hip pain Procedure: 3 views right hip including AP pelvis Comparison: No prior studies for comparison. Findings: No fracture, subluxation or dislocation. Moderate lower lumbar spondylosis. There is a left internal ureteral stent present. There is anatomic alignment of the hip. Impression: 1: No acute fracture. Reviewed, dictated and finalized at location A. Impression: 1: No acute fracture.
[2022-02-21 02:46] VITALS: BP 160/74; PULSE 61; RESP 16; TEMP 35.7; O2SAT 100
--- NOTE | 2022-02-21 03:08 | ED.LOWEXIN ---
HPI - Extremity Injury (Lower) General Chief Complaint: Extremity Injury, Lower Stated Complaint: right hip pain Time Seen by Provider: 02/21/22 02:50 Source: patient Mode of arrival: ambulatory Limitations: no limitations History of Present Illness HPI Narrative: Patient is an 81-year-old male complaining of right groin pain after he caught himself which prevent him from falling while going the bathroom after he lost his balance and that is when the pain started in his right groin. Patient states that he has a history of balance problems. Patient denies any abdomen, back or hip pain injury. Patient denies any testicular pain or swelling. Related Data Home Medications Medication Instructions Recorded Confirmed aspirin 81 mg PO DAILY 01/17/21 10/04/21 atorvastatin 40 mg PO HS 01/17/21 10/04/21 cholecalciferol (vitamin D3) 50 mcg PO DAILY 01/17/21 10/04/21 furosemide 40 mg PO DAILY 01/17/21 10/04/21 levothyroxine [Synthroid] 50 mcg PO DAILY 01/17/21 10/04/21 losartan 25 mg PO DAILY 01/17/21 10/04/21 metoprolol tartrate 25 mg PO BID 01/17/21 10/06/21 omega 0-kqo-odv-fish oil [Fish Oil] 1,200 cap PO DAILY 01/17/21 10/04/21 potassium chloride 20 meq PO DAILY 01/17/21 10/04/21 tamsulosin [Flomax] 0.4 mg PO DAILY 01/17/21 10/04/21 vitamin B complex 1 cap PO DAILY 01/17/21 10/04/21 insulin aspart U-100 14 unit SUBCUT QA 09/18/21 10/04/21 insulin glargine 62 unit SUBCUT HS 09/18/21 10/04/21 Allergies Allergy/AdvReac Type Severity Reaction Status Date / Time codeine Allergy Unknown Hives Verified 02/21/22 02:50 doxazosin Allergy Unknown Unknown Verified 02/21/22 02:50 egg Allergy Unknown Nausea Verified 02/21/22 02:50 erythromycin base Allergy Unknown Fever Verified 02/21/22 02:50 Influenza Virus Vaccines Allergy Unknown Unknown Verified 02/21/22 02:50 lisinopril Allergy Unknown Unknown Verified 02/21/22 02:50 metformin Allergy Unknown Unknown Verified 02/21/22 02:50 Penicillins Allergy Unknown Unknown Verified 02/21/22 02:50 Review of Systems Review of Systems: Per HPI All systems reviewed & are unremarkable except as noted in HPI and below PMFSH Past Medical History Medical History CAD (coronary artery disease) Diabetes mellitus H/O: HTN (hypertension) History of rectal cancer Hyperlipidemia LBBB (left bundle branch block) Surgical History Surgical History History of aortic valve replacement History of colon resection Exploratory laparotomy with abdominoperineal resection as well as a left inguinal hernia repair in December [address] Oliver for rectal cancer. History of coronary artery bypass graft History of left inguinal hernia repair Repair of left inguinal hernia during colon resection in December 2004 and then repair of recurrent left inguinal hernia with mesh in May 2005. Family History Family History Father Heart disease Mother Heart disease Asthma Sibling Heart disease Social History Social History Smoking packs per day: 2 Smoking cigarettes per day: 40.0 Years smoked: 47 Smoking pack-years: 94.00 Smoking status: Former smoker Tobacco type: cigarettes Second hand tobacco smoke exposure: Yes Smoking end date: 12/02/96 Alcohol intake: never Substance use: never Gender identity (if verbalized by the patient): Male Spiritual care concerns: No Exam Const: General: cooperative, healthy appearing, comfortable, no acute distress, well developed, alert and awake; No confusion Orientation/consciousness: oriented to person, oriented to place, oriented to time, patient oriented x3 and No confusion Limitations: no limitations HENMT: Head: normal to inspection, normocephalic and atraumatic Ears: hearing grossly normal bilaterally, TM normal on the right and TM
== END 2022-02-21 04:00 | disposition home or self-care (01) ==
PROVIDERS: Emergency Provider Emergency Medicine; PCP Family Medicine
DX: S76.211A Strain of adductor muscle, fascia and tendon of right thigh, initial encounter (principal); E11.9 Type 2 diabetes mellitus without complications; Z79.4 Long term (current) use of insulin; I10 Essential (primary) hypertension; E78.5 Hyperlipidemia, unspecified; X50.0XXA Overexertion from strenuous movement or load, initial encounter
CPT/HCPCS: 73502; 99283

== ENCOUNTER 2022-04-12 14:55 | Outpatient (CLI) | payer MEDICARE, SELFPAY ==
--- NOTE | ~2022-04-12 | XR_ITS ---
XR abdomen/kub 1V 04/12/2022 15:15 Indication: Left hydronephrosis. Left ureteral stent. Procedure: KUB Comparison: Comparison to multiple prior studies sequentially, with oldest reviewed study dated 04/2021. Findings: There is a left internal ureteral stent in expected position. There is chronic left basilar scarring/atelectasis. Cardiomegaly. There are median sternotomy wires. There are distal left uretera l stones at the sacral level. There are surgical changes of the pelvis. Moderate lumbar spondylosis. Impression: 1: Distal left ureteral stones at the sacral level. Left internal ureteral stent in expected position . Reviewed, dictated and finalized at location A. Impression: 1: Distal left ureteral stones at the sacral level. Left internal ureteral sten t in expected position.
== END 2022-04-12 14:56 | disposition home or self-care (01) ==
PROVIDERS: PCP Family Medicine; Visit Provider Urology
DX: N13.2 Hydronephrosis with renal and ureteral calculous obstruction (principal); M47.816 Spondylosis without myelopathy or radiculopathy, lumbar region
CPT/HCPCS: 74018

== ENCOUNTER 2022-12-11 10:34 | Outpatient (CLI) | payer MEDICARE, SELFPAY ==
--- NOTE | ~2022-12-11 | XR_ITS ---
EXAMINATION: XR abdomen/kub 1V INDICATION: Kidney stone TECHNIQUE: Supine views of the abdomen were obtained on 2 radiographs. COMPARISON: 04/12/2022 FINDINGS: No urolithiasis is identified. There are phleboliths of the pelvis. There is mild atelectas is of the visualized lung bases. Surgical clips are noted in the pelvis. The bowel gas pattern is nor mal. IMPRESSION: 1. No urolithiasis identified. Reviewed, dictated and finalized at location L. NE HOUSE HELPER
== END 2022-12-11 10:35 | disposition home or self-care (01) ==
PROVIDERS: PCP Family Medicine; Visit Provider Urology
DX: N20.0 Calculus of kidney (principal)
CPT/HCPCS: 74018

== ENCOUNTER 2024-01-15 12:19 | Outpatient (CLI) | payer MEDICARE, SELFPAY ==
--- NOTE | ~2024-01-15 | XR_ITS ---
XR knee LT 3V DATE: 01/15/2024 12:41 INDICATION: Left knee pain TECHNIQUE: [place], AP and lateral views COMPARISON: None FINDINGS: Superior pole patellar enthesopathy at quadriceps tendon insertion. Slight periarticular spurring of the patella. Very small suprapatellar bursa joint fluid. Chondrocalcinosis of medial and lateral compartments. Medial and lateral compartment joint spaces are well preserved. No radiopaque intra-articular loose body is detected. No fracture, dislocation, periosteal reaction or bone destruction. Surgical clips are noted along the posteromedial aspect of the left upper leg and knee. IMPRESSION: Chondrocalcinosis Minimal suprapatellar knee joint effusion Minimal periarticular spurring of the patella consistent with mild osteoarthritis Reviewed, dictated and finalized at location B. BRIM POUNCER IMPRESSION: Chondrocalcinosis Minimal suprapatellar knee joint effusion Minimal periarticular spurring of the patella consistent with mild osteoarthrit is
== END 2024-01-15 12:20 | disposition home or self-care (01) ==
LOC: ANHIMG 12:20
PROVIDERS: PCP Family Medicine; Visit Provider Family Medicine
DX: M11.262 Other chondrocalcinosis, left knee (principal); M25.462 Effusion, left knee; M25.762 Osteophyte, left knee
CPT/HCPCS: 73562

== ENCOUNTER 2024-01-18 09:04 | Observation (INO) | payer MEDICARE, SELFPAY ==
--- NOTE | ~2024-01-18 | XR_ITS ---
EXAMINATION: XR hip LT 2V w AP pelvis DATE: 01/18/2024 10:14 INDICATION: Left hip pain post fall TECHNIQUE: Anteroposterior view of the pelvis and anteroposterior and frog-leg lateral views of the l eft hip were obtained. COMPARISON: None. FINDINGS: Bone alignment is normal. No fracture. Moderate to severe lower lumbar spondylosis. Surgical clips in the pelvis. Couple additional small surgical clips at the medial aspect of the proximal thighs. Nons pecific 6 x 3.5 cm ovoid soft tissue density projecting over the relatively superficial soft tissues anterolateral to the left hip. IMPRESSION: 1. No acute osseous abnormality. 2. Indeterminate 6 x 3.5 cm soft tissue density projecting over the superficial soft tissues anterola teral to the left hip. Correlate clinically and with physical exam. Could consider follow-up ultrasou nd or CT for further evaluation as clinically indicated. Reviewed, dictated and finalized at location A. S OFFICER IMPRESSION: 1. No acute osseous abnormality. 2. Indeterminate 6 x 3.5 cm soft tissue density projecting over the superficial soft tissues anterolateral to the left hip. Correlate clinically and with phys ical exam. Could consider follow-up ultrasound or CT for further evaluation as clinically indicated.
--- NOTE | ~2024-01-18 | CT_ITS ---
EXAMINATION: CT pelvis wo con DATE: 01/18/2024 11:06 INDICATION: Left hip pain post fall TECHNIQUE: High resolution computed tomography (CT) of the left hip was performed without intravenous contrast. Additional sagittal and coronal reconstructions were performed. Automated exposure control and iterative reconstruction technique were employed. The dose-length product was 620.13 mGy-cm. COMPARISON: CT dated 01/26/2021 FINDINGS: Mild lower lumbar levocurvature with severe spondylosis. Normal alignment at the bilateral hips. No f racture or suspected osteonecrosis. Mild osteoarthritis at the bilateral hip and sacroiliac joints. T here is a small left hip joint effusion. Again seen is a large left lower quadrant parastomal hernia containing loops of nonobstructed small bowel extending through an orifice measuring 5.0 x 4.0. Bladd er is normal. No free fluid in the pelvis. No pathologically enlarged pelvic or inguinal lymphadenopa thy. There are couple surgical clips in the pelvis. The previously noted masslike opacity projecting over the left hip appears to correspond to material external to the patient. IMPRESSION: 1. Small left hip joint effusion. No acute osseous abnormality. 2. Left lower quadrant parastomal hernia containing loops of nonobstructed small bowel. Reviewed, dictated and finalized at location A. LY SERVICES SPECIALIST IMPRESSION: 1. Small left hip joint effusion. No acute osseous abnormality. 2. Left lower quadrant parastomal hernia containing loops of nonobstructed smal l bowel.
--- NOTE | ~2024-01-18 | CT_ITS ---
EXAMINATION: CT brain wo con DATE: 01/18/2024 16:27 INDICATION: glf, ams . TECHNIQUE: Computed tomography (CT) of the head was performed without intravenous contrast. The mA wa s adjusted according to patient size. Iterative reconstruction technique was employed. The dose-lengt h product was 605.33 mGy-cm. COMPARISON: None. FINDINGS: No acute intracranial hemorrhage or extra-axial fluid collection. No hydrocephalus, mass, or herniation. No acute ischemic infarct. Unremarkable dural venous sinus attenuation. No acute osseous abnormality. The aerated spaces are clear. Moderate atrophy and chronic white matter change. Atherosclerotic intracranial calcification. Bilater al lens replacements. Left posterior frontal and parietal encephalomalacia. Old left caudate head and periventricular lacunar infarcts. IMPRESSION: No acute intracranial process. Reviewed, dictated and finalized at location K. D PROPERTY LOSS SPECIALIST
--- NOTE | ~2024-01-18 | CT_ITS ---
EXAMINATION: CT lumbar spine wo con DATE: 01/18/2024 14:03 INDICATION: LBP s/p fall, radiating into LLE . TECHNIQUE: Computed tomography (CT) of the lumbar spine was performed without intravenous contrast. A utomated exposure control and iterative reconstruction technique were employed. The dose-length produ ct was 1136.23 mGy-cm. COMPARISON: None. FINDINGS: Bibasilar scar. 5 nonrib-bearing lumbar-type vertebral bodies. Pedicles intact. Normal vert ebral body alignment. Vertebral body heights preserved. Multilevel moderate-severe degenerative disc disease and facet arthropathy. Mild spinal asymmetry. Saccular 1.0 x 1.4 cm infrarenal abdominal aort ic aneurysm. Severe degenerative bilateral neural foraminal narrowing at L5-S1. Severe degenerative r ight neural foraminal narrowing at L4-5. No severe central canal narrowing IMPRESSION: No acute fracture or traumatic malalignment in the lumbar spine. Reviewed, dictated and finalized at location K. PPING MACHINE OPERATOR
--- NOTE | ~2024-01-18 | XR_ITS ---
EXAMINATION: XR knee LT min 4V, XR femur LT min 2V DATE: 01/18/2024 12:20 INDICATION: Left femur and knee pain post fall TECHNIQUE: 1. AP and lateral views of the left femur were obtained on overlapping proximal and distal images. 2. Anteroposterior, 2 oblique and crosstable lateral views of the left knee were obtained COMPARISON: None. FINDINGS: Alignment is normal at the left hip and knee. No fracture. Mild osteoarthritis at the left hip. Left knee joint spaces appear relatively preserved however could be underestimated on nonweightbearing im aging. Small to side of the proximal pole of the patella. No joint effusion/layering lipohemarthrosis . Multiple surgical clips along the medial aspect of the left thigh suggesting prior saphenous vein g raft harvest. IMPRESSION: 1. Mild left hip osteoarthritis. No acute osseous abnormality. Reviewed, dictated and finalized at location A. ISH FILTERER IMPRESSION: 1. Mild left hip osteoarthritis. No acute osseous abnormality.
[2024-01-18 09:41] VITALS: BP 96/53; PULSE 70; RESP 18; TEMP 36.2; O2SAT 100
[2024-01-18] MEDS: SODIUM CHLORIDE 0.9% IV 1,000 ML 999 ML IV CONT (10:20)
--- NOTE | 2024-01-18 10:20 | ED.FALL ---
HPI - Fall General Chief Complaint: Fall <LUCIO Reynaga Last Filed: 01/18/24 19:52> Stated Complaint: fall/hip pain <LUCIO Reynaga Last Filed: 01/18/24 19:52> Time Seen by Provider: 01/18/24 09:52 <Yesy Caceres PA-C - Last Filed: 01/18/24 19:52> Source: patient and family <LUCIO Reynaga Last Filed: 01/18/24 19:52> Mode of arrival: EMS <LUCIO Reynaga Last Filed: 01/18/24 19:52> Limitations: no limitations <LUCIO Reynaga Last Filed: 01/18/24 19:52> History of Present Illness HPI Narrative: Patient is an 83-year-old male who presents the ED via EMS with report of left hip pain status post fall. Patient reports he slipped and fell in his bathroom this morning, landing directly on his left side. He was unable to bear weight or stand up on his own after the fall due to severe pain in his left hip/pelvis, radiating down his left lower extremity. Crawled to his phone to call EMS. He is unsure if he hit his head. Denies LOC. Denies any other areas of pain. Denies numbness/tingling. Patient is on Plavix and aspirin. Son at bedside reports patient has been dealing with left-sided sciatica pain for the last several months. <LUCIO Reynaga Last Filed: 01/18/24 19:52> Related Data Home Medications: Home Medications Medication Instructions Recorded Confirmed aspirin 81 mg tablet,delayed 81 mg PO DAILY 01/17/21 01/18/24 release atorvastatin 40 mg tablet 40 mg PO HS 01/17/21 01/18/24 cholecalciferol (vitamin D3) 50 50 mcg PO DAILY 01/17/21 01/18/24 mcg (2,000 unit) capsule furosemide 40 mg tablet 40 mg PO DAILY 01/17/21 01/18/24 losartan 25 mg tablet 25 mg PO DAILY 01/17/21 01/18/24 metoprolol tartrate 25 mg tablet 25 mg PO BID 01/17/21 12/17/23 omega 5-nxv-dqu-fish oil 1,200 mg 1,200 cap PO DAILY 01/17/21 01/18/24 (144 mg-216 mg) capsule (Fish Oil) potassium chloride 20 mEq 20 meq PO DAILY 01/17/21 01/18/24 tablet,extended release tamsulosin 0.4 mg capsule (Flomax) 0.4 mg PO DAILY 01/17/21 01/18/24 ezetimibe 10 mg tablet 10 mg PO DAILY 02/14/23 01/18/24 insulin aspart U-100 100 unit/mL 10 unit subcut QAM 02/14/23 01/18/24 (3 mL) subcutaneous pen nitroglycerin 0.4 mg sublingual 0.4 mg sublingual Q5M PRN 02/14/23 12/17/23 tablet insulin glargine 100 unit/mL (3 45 unit subcut HS 06/26/23 01/18/24 mL) subcutaneous pen clopidogrel 75 mg tablet 75 mg PO DAILY 12/17/23 01/18/24 gabapentin 100 mg capsule 100 mg PO DAILY 12/17/23 01/18/24 <Yesy Caceres PA-C - Last Filed: 01/18/24 19:52> Allergies/Adverse Reactions: Allergies Allergy/AdvReac Type Severity Reaction Status Date / Time codeine Allergy Unknown Hives Verified 12/17/23 13:59 doxazosin Allergy Unknown Unknown Verified 12/17/23 13:59 egg Allergy Unknown Nausea Verified 12/17/23 13:59 erythromycin base Allergy Unknown Fever Verified 12/17/23 13:59 Influenza Virus Vaccines Allergy Unknown Unknown Verified 12/17/23 13:59 lisinopril Allergy Unknown Unknown Verified 12/17/23 13:59 metformin Allergy Unknown Unknown Verified 12/17/23 13:59 Penicillins Allergy Unknown Unknown Verified 12/17/23 13:59 <Yesy Caceres PA-C - Last Filed: 01/18/24 19:52> Review of Systems Review of Systems: CONSTITUTIONAL: Denies fever, chills, or sweats. CARDIOVASCULAR: Denies chest pain. RESPIRATORY: Denies dyspnea. MUSCULOSKELETAL: See HPI. NEUROLOGIC: Denies headache, dizziness, numbness, or weakness. <Yesy Caceres PA-C - Last Filed: 01/18/24 19:52> All systems reviewed & are unremarkable except as noted in HPI and below <Yesy Caceres PA-C - Last Filed: 01/18/24 19:52> [facility] Past Medical History Medical History: Medical History Atherosclerosis of aorta Atherosclerotic heart disease of [place] coronary artery with unspecified angin
[2024-01-18] MEDS: ONDANSETRON INJ 4 MG/2 ML VIAL IV PUSH (10:21)
[2024-01-18] MEDS: fentaNYL CITRATE INJ (*CRX) 100 MCG/2 ML VIAL 25 MCG IV PUSH ×2 (10:21→10:50)
[2024-01-18] MEDS: fentaNYL CITRATE INJ (*CRX) 100 MCG/2 ML VIAL 50 MCG IV PUSH (11:56)
[2024-01-18] MEDS: diazePAM INJ (*CRX) 10 MG/2 ML SYRINGE 2 MG IV PUSH (12:18)
[2024-01-18 12:38] LABS: Basophils Absolute Auto 0.1 K/mm3 (0.0-0.1); Basophils Percent Auto 0.3 % (0.2-1.2); Eosinophils Absolute Auto 0.1 K/mm3 (0-0.3); Eosinophils Percent Auto 0.3 % (0-4.4); Hematocrit 38.2 % (42.0-52.0); Hemoglobin 12.5 g/dL (14.0-18.0); Immature Granulocyte Absolute 0.08 K/mm3 (0.00-0.031); Immature Granulocyte Percent A 0.5 % (0-0.5); Lymphocytes Absolute Auto 1.63 K/mm3 (0.9-3.2); Lymphocytes Percent Auto 9.5 % (18.3-44.2); Mean Corpuscular HGB Conc 32.7 g/dl (32-36); Mean Corpuscular Hemoglobin 31.8 pg (26-34); Mean Corpuscular Volume 97.2 fl (80-100); Mean Platelet Volume 9.9 fl (7.4-10.4); Monocytes Absolute Auto 2.1 K/mm3 (0.1-0.6); Monocytes Percent Auto 12.2 % (2.6-8.5); Neutrophils Absolute Auto 13.3 K/mm3 (1.3-6.7); Neutrophils Percent Auto 77.2 % (45.5-73.1); Platelet Count Result 257 k/mm3 (150-375); Red Blood Count 3.93 M/mm3 (4.6-6.20); Red Cell Distribution Width 12.6 % (11.5-14.5); White Blood Count 17.2 K/mm3 (4.5-10.0)
[2024-01-18 12:49] LABS: Alanine Aminotransferase 15 U/L (6-50); Albumin Level 4.3 g/dL (3.5-5.1); Alkaline Phosphatase 110 U/L (38-126); Anion Gap 10 mmol/L (8-16); Aspartate Amino Transferase 28 U/L (17-59); Bilirubin,Total 0.8 mg/dL (0.2-1.3); Blood Urea Nitrogen 23 mg/dL (9-20); Calcium 9.7 mg/dL (8.4-10.2); Carbon Dioxide 27 mmol/L (22-30); Chloride 101 mmol/L (98-107); Estimated CRCL calculation 35 ml/min; Estimated Glomerular Filt Rate 48; Glucose 212 mg/dL (65-110); Potassium 4.3 mmol/L (3.4-5.0); Sodium 138 mmol/L (137-145)
[2024-01-18 12:54] LABS: INR 1.1; Prothrombin Time 14.7 Seconds (11.1-14.7)
[2024-01-18 12:55] LABS: Partial Thromboplastin Time 27.9 SECONDS (22.3-36.8)
[2024-01-18 13:19] VITALS: BP 148/64; PULSE 68; RESP 18; O2SAT 100
[2024-01-18] MEDS: methylPREDNISolone SOD SUCC 125 MG VIAL IV PUSH (14:33)
[2024-01-18] MEDS: HYDROmorphone HCL INJ (*CRX) 1 MG/ML SYR 0.5 MG IV PUSH (14:34)
[2024-01-18 14:41] VITALS: BP 154/52; PULSE 68; RESP 16; O2SAT 100
[2024-01-18 16:10] LABS: Appearance Urine Clear (Clear); Bacteria Urine None Seen /hpf; Bilirubin Urine Negative (Negative); Blood Urine Negative (Negative); Color Urine Dark Yellow (Yellow); Glucose Urine UA Trace mg/dL (Negative); Ketones Urine Trace mg/dL (Negative); Leukocyte Esterase Ur Negative LEU/UL (Negative); Nitrate Urine Negative (Negative); Non Pathogenic Casts 0-2; Protein Urine 1+ mg/dL (Negative); RBC Urine 0-2 /hpf (0-2); Specific Grav Ur 1.018 (1.001-1.035); Squamous Epithelial Cell Urine None seen /hpf (Few); Urobilinogen Urine 0.2 mg/dL (<2.0); WBC Urine 0-5 /hpf; pH Urine 5.5 (5.0-9.0)
[2024-01-18 16:13] LABS: Add Urine Microscopic? YES
[2024-01-18 17:11] LABS: Creatine Kinase 50 U/L (55-170)
--- NOTE | 2024-01-18 19:21 | PC.NURSE ---
Assumed care of pt from MAVIS Bell at this time.
[2024-01-18] MEDS: GABAPENTIN 100 MG CAPSULE PO (19:45)
[2024-01-18] MEDS: CYCLOBENZAPRINE HCL 5 MG TABLET PO (19:45)
[2024-01-18 20:33] VITALS: BP 188/55; PULSE 76; RESP 23; O2SAT 100
--- NOTE | 2024-01-18 20:54 | PM.IMHP ---
H&P: HPI History of Present Illness Date/Time: 01/18/24 20:54 Chief Complaint: fall Narrative: This is an 83-year-old male with past medical history significant for type diabetes mellitus, hypotension, hypertension, benign prostatic hyperplasia, coronary artery disease, chronic kidney disease, left bundle branch block, colostomy in place. Patient presents to the emergency room after having a fall patient can not really contribute much to history he is unable to tell whether he had loss of consciousness he is unable to exactly describe how the fall happened he was helped by an innocent bystander who called EMS. EXAMINATION: CT brain wo con DATE: 01/18/2024 16:27 INDICATION: glf, ams . TECHNIQUE: Computed tomography (CT) of the head was performed without intravenous contrast. The mA was adjusted according to patient size. Iterative reconstruction technique was employed. The dose-length product was 605.33 mGy-cm. COMPARISON: None. FINDINGS: No acute intracranial hemorrhage or extra-axial fluid collection. No hydrocephalus, mass, or herniation. No acute ischemic infarct. Unremarkable dural venous sinus attenuation. No acute osseous abnormality. The? aerated spaces are clear. Moderate atrophy and chronic white matter change. Atherosclerotic intracranial calcification. Bilateral lens replacements. Left posterior frontal and parietal encephalomalacia. Old left caudate head and periventricular lacunar infarcts. IMPRESSION:? No acute intracranial process. EXAMINATION: CT pelvis wo con DATE: 01/18/2024 11:06 INDICATION: Left hip pain post fall TECHNIQUE: High resolution computed tomography (CT) of the left hip was performed without intravenous contrast. Additional sagittal and coronal reconstructions were performed. Automated exposure control and iterative reconstruction technique were employed. The dose-length product was 620.13 mGy-cm. COMPARISON: CT dated 01/26/2021 FINDINGS: Mild lower lumbar levocurvature with severe spondylosis. Normal alignment at the bilateral hips. No fracture or suspected osteonecrosis. Mild osteoarthritis at the bilateral hip and sacroiliac joints. There is a small left hip joint effusion. Again seen is a large left lower quadrant parastomal hernia containing loops of nonobstructed small bowel extending through an orifice measuring 5.0 x 4.0. Bladder is normal. No free fluid in the pelvis. No pathologically enlarged pelvic or inguinal lymphadenopathy. There are couple surgical clips in the pelvis. The previously noted masslike opacity projecting over the left hip appears to correspond to material external to the patient. IMPRESSION: 1. Small left hip joint effusion. No acute osseous abnormality. 2. Left lower quadrant parastomal hernia containing loops of nonobstructed small bowel. Review of Systems Review of Systems: fall patient can really contribute in detail to history of present illness in a meaningful way [facility] Past Medical History Medical History Atherosclerosis of aorta Atherosclerotic heart disease of [place] coronary artery with unspecified angina pectoris Enlarged prostate with lower urinary tract symptoms (LUTS) History of rectal cancer Hydronephrosis, left Hyperlipidemia Hypertensive chronic kidney disease Hypothyroid LBBB (left bundle branch block) [facility] (current) use of insulin Microalbuminuria Personal history of colon cancer Personal history of transient ischemic attack (TIA), 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
[2024-01-18 21:19] LABS: Glucose Point of Care 206 mg/dl (65-105)
--- NOTE | 2024-01-18 21:20 | ADMGEN ---
This patient, Mauricio Garces, was admitted to [facility] Surg Room 303-01. Patient/family oriented to hospital policies and general routines including ID bracelet, bed and alarms, visiting hours, pain management, procedures, bathroom and other care routines, personal items, smoking policy, room service/diet, and visiting hours. Information on how to activate the Rapid Response Team has been discussed. Patient/Family are encouraged to report perceived risks to care and to ask questions if they do not understand what they are told or what they should do.
[2024-01-18 22:00] VITALS: BP 168/74; PULSE 73; RESP 24; TEMP 36.8; O2SAT 99
[2024-01-19] MEDS: traMADol HCL (*CRX) 50 MG TABLET PO ×2 (02:55→17:05)
[2024-01-19] MEDS: LEVOTHYROXINE SODIUM 75 MCG TABLET PO (05:27)
[2024-01-19 06:00] VITALS: BP 163/46; PULSE 63; RESP 16; TEMP 36.4; O2SAT 98
[2024-01-19 07:38] LABS: Glucose Point of Care 291 mg/dl (65-105)
[2024-01-19] MEDS: INSULIN ASPART (*BKC) 100 UNITS/ML 10 UNITS SUB-Q ×3 (08:47→17:06)
[2024-01-19] MEDS: OMEGA 3 POLYUNSAT FATTY ACIDS 1 GM CAP PO (08:49)
[2024-01-19] MEDS: TAMSULOSIN HCL 0.4 MG CAPSULE PO (08:49)
[2024-01-19] MEDS: LOSARTAN POTASSIUM 25 MG TABLET PO (08:49)
[2024-01-19] MEDS: GABAPENTIN 100 MG CAPSULE PO (08:49)
[2024-01-19] MEDS: ASPIRIN 81 MG ENTERIC TABLET PO (08:49)
[2024-01-19] MEDS: CHOLECALCIFEROL 1,000 UNITS TABLET 2000 UNITS PO (08:49)
[2024-01-19] MEDS: CLOPIDOGREL BISULFATE 75 MG TABLET PO (08:49)
[2024-01-19 08:58] LABS: Hematocrit 36.3 % (42.0-52.0); Mean Corpuscular HGB Conc 33.1 g/dl (32-36); Mean Corpuscular Hemoglobin 31.7 pg (26-34); Mean Corpuscular Volume 95.8 fl (80-100); Mean Platelet Volume 10.1 fl (7.4-10.4); Platelet Count Result 177 k/mm3 (150-375); Red Blood Count 3.79 M/mm3 (4.6-6.20); Red Cell Distribution Width 12.8 % (11.5-14.5); White Blood Count 12.2 K/mm3 (4.5-10.0)
[2024-01-19] MEDS: ACETAMINOPHEN 500 MG TABLET 1000 MG PO (09:11)
[2024-01-19 09:14] LABS: Alanine Aminotransferase 18 U/L (6-50); Albumin Level 3.8 g/dL (3.5-5.1); Alkaline Phosphatase 108 U/L (38-126); Anion Gap 4 mmol/L (8-16); Aspartate Amino Transferase 39 U/L (17-59); Bilirubin,Total 1.3 mg/dL (0.2-1.3); Blood Urea Nitrogen 34 mg/dL (9-20); Calcium 9.6 mg/dL (8.4-10.2); Carbon Dioxide 30 mmol/L (22-30); Chloride 102 mmol/L (98-107); Estimated CRCL calculation 33 ml/min; Estimated Glomerular Filt Rate 45; Glucose 291 mg/dL (65-110); Potassium 4.4 mmol/L (3.4-5.0); Sodium 136 mmol/L (137-145)
[2024-01-19 11:30] LABS: Glucose Point of Care 372 mg/dl (65-105)
[2024-01-19 14:00] VITALS: BP 121/47; PULSE 83; RESP 20; TEMP 36.6; O2SAT 99
--- NOTE | 2024-01-19 14:51 | PM.IMPN ---
Progress Note: A&P Assessment and Plan (1) Fall from ground level: Code(s): W18.30XA - Fall on same level, unspecified, initial encounter Status: Acute Assessment and Plan: Patient presented to the ED after fall resulting in left hip and leg pain unable to ambulate. X-ray of left hip and pelvis negative for acute fracture. X-rays of left femur and left knee also without acute abnormalities. CT of pelvis showing hip joint effusion, no fracture. CT of lumbar spine without traumatic findings. CT of the brain negative. Having difficulty with pain control at this time. PT and OT consulted. Patient most likely going to need placement. (2) Acute pain of left lower extremity: Code(s): M79.605 - Pain in left leg Status: Acute Assessment and Plan: See 1. (3) Unable to ambulate: Code(s): R26.2 - Difficulty in walking, not elsewhere classified Status: Acute Assessment and Plan: PT and OT consult of the patient. (4) Acute urinary retention: Code(s): R33.8 - Other retention of urine Status: Acute Assessment and Plan: Patient was found to be retaining 500 mL urine in the ED Romero catheter placed. UA negative for infection. Continue tamsulosin daily (5) Enlarged prostate with lower urinary tract symptoms (LUTS): Qualifiers: Lower urinary tract symptom detail: post-void dribbling Qualified Code(s): N40.1 - Benign prostatic hyperplasia with lower urinary tract symptoms; N39.43 - Post-void dribbling Code(s): N40.1 - Benign prostatic hyperplasia with lower urinary tract symptoms Status: Acute Assessment and Plan: Continue tamsulosin (6) Colostomy status: Code(s): Z93.3 - Colostomy status Status: Acute Assessment and Plan: Patient has colostomy due to history of colon cancer. (7) Type 2 diabetes mellitus with diabetic chronic kidney disease: Qualifiers: Diabetes mellitus extermination supervisor insulin use: with extermination supervisor use Chronic kidney disease stage: stage 3 (moderate) Chronic kidney disease stage 3 subtype: stage 3b (GFR 30-44) Qualified Code(s): E11.22 - Type 2 diabetes mellitus with diabetic chronic kidney disease; N18.32 - Chronic kidney disease, stage 3b; Z79.4 - penitentiary (current) use of insulin Code(s): E11.22 - Type 2 diabetes mellitus with diabetic chronic kidney disease Status: Acute Assessment and Plan: Insulin Lispro sliding scale, Accu-checks qAc and HS and Hold oral hypoglycemics Initiate hypoglycemic precautions (8) Parastomal hernia: Onset Date: ~01/28/21 Qualifiers: Obstruction and gangrene presence: without obstruction or gangrene Qualified Code(s): K43.5 - Parastomal hernia without obstruction or gangrene Code(s): K43.5 - Parastomal hernia without obstruction or gangrene Status: Chronic Assessment and Plan: stable Subjective Date/time seen: 01/19/24 14:51 Interval history: Patient's pain is not well controlled. Patient having limited mobility. Continue to work with PT and OT. Patient will need placed. No sign of fracture at this time. Exam Narrative: GENERAL: Comfortable, no acute distress HENMT: moist mucous membranes EYES: EOM intact b/l NECK: no lymphadenopathy RESPIRATORY: clear to auscultation CARDIO: RRR GI: soft, nontender, bowel sounds present, peristomal hernia noted, colostomy in place SKIN: no rashes EXTREMITIES: no edema, redness or tenderness Objective Data Vital Signs Vital Signs: Vital Signs - 24 hr 01/18/24 20:33 01/18/24 22:00 01/19/24 06:00 Temperature 98.2 F 97.6 F Pulse Rate 76 73 63 Respiratory Rate 23 H 24 H 16 Blood Pressure 188/55 H 168/74 H 163/46 H Pulse Oximetry 100 99 98 Oxygen Delivery 01/19/24 10:20 01/19/24 10:38 01/19/24 14:00 Temperature 97.9 F Pulse Rate 83 Respirato
[2024-01-19 16:54] LABS: Glucose Point of Care 319 mg/dl (65-105)
[2024-01-19] MEDS: INSULIN ASPART (*BKC) 100 UNITS/ML SUB-Q ×2 (17:06→21:22)
[2024-01-19 20:49] LABS: Glucose Point of Care 277 mg/dl (65-105)
[2024-01-19 20:52] VITALS: BP 127/51; PULSE 66; RESP 17; TEMP 36.2; O2SAT 99
[2024-01-19] MEDS: ATORVASTATIN 40 MG TABLET PO (21:22)
[2024-01-19] MEDS: INSULIN GLARGINE (*BKC) 100 UNITS/ML 45 UNITS SUB-Q (21:23)
[2024-01-20 05:53] VITALS: BP 128/67; PULSE 94; RESP 16; TEMP 36.3; O2SAT 92
[2024-01-20] MEDS: LEVOTHYROXINE SODIUM 75 MCG TABLET PO (06:08)
[2024-01-20 06:29] LABS: Hematocrit 30.3 % (42.0-52.0); Mean Corpuscular Hemoglobin 31.8 pg (26-34); Mean Corpuscular Volume 96.5 fl (80-100); Mean Platelet Volume 10.1 fl (7.4-10.4); Platelet Count Result 180 k/mm3 (150-375); Red Blood Count 3.14 M/mm3 (4.6-6.20); Red Cell Distribution Width 12.9 % (11.5-14.5); White Blood Count 15.2 K/mm3 (4.5-10.0)
[2024-01-20 06:45] LABS: Anion Gap 6 mmol/L (8-16); Blood Urea Nitrogen 43 mg/dL (9-20); Calcium 8.9 mg/dL (8.4-10.2); Carbon Dioxide 27 mmol/L (22-30); Chloride 102 mmol/L (98-107); Estimated CRCL calculation 33 ml/min; Estimated Glomerular Filt Rate 45; Glucose 148 mg/dL (65-110); Potassium 3.8 mmol/L (3.4-5.0); Sodium 135 mmol/L (137-145)
[2024-01-20 07:18] LABS: Glucose Point of Care 138 mg/dl (65-105)
[2024-01-20] MEDS: INSULIN ASPART (*BKC) 100 UNITS/ML 10 UNITS SUB-Q ×2 (09:36→17:48)
[2024-01-20] MEDS: TAMSULOSIN HCL 0.4 MG CAPSULE PO (09:36)
[2024-01-20] MEDS: OMEGA 3 POLYUNSAT FATTY ACIDS 1 GM CAP PO (09:36)
[2024-01-20] MEDS: CHOLECALCIFEROL 1,000 UNITS TABLET 2000 UNITS PO (09:37)
[2024-01-20] MEDS: CLOPIDOGREL BISULFATE 75 MG TABLET PO (09:37)
[2024-01-20] MEDS: ASPIRIN 81 MG ENTERIC TABLET PO (09:37)
[2024-01-20] MEDS: GABAPENTIN 100 MG CAPSULE PO (09:37)
[2024-01-20] MEDS: LOSARTAN POTASSIUM 25 MG TABLET PO (09:37)
[2024-01-20] MEDS: traMADol HCL (*CRX) 50 MG TABLET PO ×2 (09:50→21:08)
[2024-01-20 11:24] LABS: Glucose Point of Care 141 mg/dl (65-105)
--- NOTE | 2024-01-20 13:52 | PM.IMPN ---
Progress Note: A&P Assessment and Plan (1) Fall from ground level: Code(s): W18.30XA - Fall on same level, unspecified, initial encounter Status: Acute Assessment and Plan: Patient presented to the ED after fall resulting in left hip and leg pain unable to ambulate. X-ray of left hip and pelvis negative for acute fracture. X-rays of left femur and left knee also without acute abnormalities. CT of pelvis showing hip joint effusion, no fracture. CT of lumbar spine without traumatic findings. CT of the brain negative. Having difficulty with pain control at this time. PT and OT consulted. Patient most likely going to need placement. (2) Acute pain of left lower extremity: Code(s): M79.605 - Pain in left leg Status: Acute Assessment and Plan: See 1. (3) Unable to ambulate: Code(s): R26.2 - Difficulty in walking, not elsewhere classified Status: Acute Assessment and Plan: PT and OT consult of the patient. (4) Acute urinary retention: Code(s): R33.8 - Other retention of urine Status: Acute Assessment and Plan: Patient was found to be retaining 500 mL urine in the ED Romero catheter placed. UA negative for infection. Continue tamsulosin daily (5) Enlarged prostate with lower urinary tract symptoms (LUTS): Qualifiers: Lower urinary tract symptom detail: post-void dribbling Qualified Code(s): N40.1 - Benign prostatic hyperplasia with lower urinary tract symptoms; N39.43 - Post-void dribbling Code(s): N40.1 - Benign prostatic hyperplasia with lower urinary tract symptoms Status: Acute Assessment and Plan: Continue tamsulosin (6) Colostomy status: Code(s): Z93.3 - Colostomy status Status: Acute Assessment and Plan: Patient has colostomy due to history of colon cancer. (7) Type 2 diabetes mellitus with diabetic chronic kidney disease: Qualifiers: Diabetes mellitus intermission coordinator insulin use: with intermission coordinator use Chronic kidney disease stage: stage 3 (moderate) Chronic kidney disease stage 3 subtype: stage 3b (GFR 30-44) Qualified Code(s): E11.22 - Type 2 diabetes mellitus with diabetic chronic kidney disease; N18.32 - Chronic kidney disease, stage 3b; Z79.4 - detention (current) use of insulin Code(s): E11.22 - Type 2 diabetes mellitus with diabetic chronic kidney disease Status: Acute Assessment and Plan: Insulin Lispro sliding scale, Accu-checks qAc and HS and Hold oral hypoglycemics Initiate hypoglycemic precautions (8) Parastomal hernia: Onset Date: ~01/28/21 Qualifiers: Obstruction and gangrene presence: without obstruction or gangrene Qualified Code(s): K43.5 - Parastomal hernia without obstruction or gangrene Code(s): K43.5 - Parastomal hernia without obstruction or gangrene Status: Chronic Assessment and Plan: stable Subjective Date/time seen: 01/20/24 13:52 Interval history: Patient states that his leg pain is improved today but he does have pain throughout his buttock and low back. Most of patient's symptoms appear to be sciatic nerve pain. He continues to work PT and OT and awaiting placement. Exam Narrative: GENERAL: Comfortable, no acute distress HENMT: moist mucous membranes EYES: EOM intact b/l NECK: no lymphadenopathy RESPIRATORY: clear to auscultation CARDIO: RRR GI: soft, nontender, bowel sounds present, peristomal hernia noted, colostomy in place SKIN: no rashes EXTREMITIES: no edema, redness or tenderness Objective Data Vital Signs Vital Signs: Vital Signs - 24 hr 01/19/24 14:00 01/19/24 20:52 01/20/24 05:53 Temperature 97.9 F 97.2 F L 97.4 F L Pulse Rate 83 66 94 Respiratory Rate 20 17 16 Blood Pressure 121/47 L 127/51 L 128/67 Pulse Oximetry 99 99 92 Intake/Output Intake/Output: Intake & Output
[2024-01-20 13:55] VITALS: BP 89/55
[2024-01-20 14:00] VITALS: PULSE 64; RESP 16; TEMP 35.6; O2SAT 98
[2024-01-20 15:00] VITALS: BP 100/48
[2024-01-20 16:36] LABS: Glucose Point of Care 103 mg/dl (65-105)
[2024-01-20] MEDS: ACETAMINOPHEN 500 MG TABLET 1000 MG PO (17:15)
[2024-01-20 20:48] VITALS: BP 121/55; PULSE 64; RESP 16; TEMP 37; O2SAT 99
[2024-01-20] MEDS: ATORVASTATIN 40 MG TABLET PO (21:08)
[2024-01-20] MEDS: INSULIN GLARGINE (*BKC) 100 UNITS/ML 45 UNITS SUB-Q (21:09)
[2024-01-20 21:12] LABS: Glucose Point of Care 158 mg/dl (65-105)
[2024-01-21 05:41] VITALS: BP 127/58; PULSE 66; RESP 17; TEMP 36.9; O2SAT 99
[2024-01-21] MEDS: LEVOTHYROXINE SODIUM 75 MCG TABLET PO (05:50)
[2024-01-21 06:56] LABS: Hematocrit 32.2 % (42.0-52.0); Hemoglobin 10.2 g/dL (14.0-18.0); Mean Corpuscular HGB Conc 31.7 g/dl (32-36); Mean Corpuscular Hemoglobin 31.7 pg (26-34); Mean Platelet Volume 9.9 fl (7.4-10.4); Platelet Count Result 160 k/mm3 (150-375); Red Blood Count 3.22 M/mm3 (4.6-6.20); Red Cell Distribution Width 12.9 % (11.5-14.5); White Blood Count 10.6 K/mm3 (4.5-10.0)
[2024-01-21 07:16] LABS: Anion Gap 3 mmol/L (8-16); Blood Urea Nitrogen 41 mg/dL (9-20); Calcium 8.9 mg/dL (8.4-10.2); Carbon Dioxide 31 mmol/L (22-30); Chloride 100 mmol/L (98-107); Estimated CRCL calculation 29 ml/min; Estimated Glomerular Filt Rate 39; Glucose 63 mg/dL (65-110); Sodium 134 mmol/L (137-145)
[2024-01-21 07:40] LABS: Glucose Point of Care 70 mg/dl (65-105)
[2024-01-21] MEDS: traMADol HCL (*CRX) 50 MG TABLET PO (07:41)
[2024-01-21 08:04] VITALS: BP 125/103; PULSE 77; RESP 18; TEMP 36.4; O2SAT 99
[2024-01-21 08:44] VITALS: BP 152/59
[2024-01-21] MEDS: TAMSULOSIN HCL 0.4 MG CAPSULE PO (08:47)
[2024-01-21] MEDS: CHOLECALCIFEROL 1,000 UNITS TABLET 2000 UNITS PO (08:48)
[2024-01-21] MEDS: OMEGA 3 POLYUNSAT FATTY ACIDS 1 GM CAP PO (08:48)
[2024-01-21] MEDS: CLOPIDOGREL BISULFATE 75 MG TABLET PO (08:49)
[2024-01-21] MEDS: ASPIRIN 81 MG ENTERIC TABLET PO (08:49)
[2024-01-21] MEDS: GABAPENTIN 100 MG CAPSULE PO (08:50)
[2024-01-21] MEDS: LOSARTAN POTASSIUM 25 MG TABLET PO (08:51)
[2024-01-21 11:31] LABS: Glucose Point of Care 110 mg/dl (65-105)
[2024-01-21] MEDS: MELOXICAM 7.5 MG TABLET PO (11:35)
--- NOTE | 2024-01-21 11:53 | PC.NURSE ---
On 01/21/24, the student, Shagufta Mata, provided care and completed [facility] documentation on this patient. I have reviewed the student's documentation and agree with the findings.
--- NOTE | 2024-01-21 13:56 | PM.DS ---
DS: Admitting Diagnosis Discharge Date 01/21/24 Admitting Diagnosis fall DS: Discharge Diagnosis Discharge Diagnosis (1) Fall from ground level: Code(s): W18.30XA - Fall on same level, unspecified, initial encounter Status: Acute (2) Acute pain of left lower extremity: Code(s): M79.605 - Pain in left leg Status: Acute (3) Unable to ambulate: Code(s): R26.2 - Difficulty in walking, not elsewhere classified Status: Acute (4) Acute urinary retention: Code(s): R33.8 - Other retention of urine Status: Acute (5) Enlarged prostate with lower urinary tract symptoms (LUTS): Qualifiers: Lower urinary tract symptom detail: post-void dribbling Qualified Code(s): N40.1 - Benign prostatic hyperplasia with lower urinary tract symptoms; N39.43 - Post-void dribbling Code(s): N40.1 - Benign prostatic hyperplasia with lower urinary tract symptoms Status: Acute (6) Colostomy status: Code(s): Z93.3 - Colostomy status Status: Acute (7) Type 2 diabetes mellitus with diabetic chronic kidney disease: Qualifiers: Diabetes mellitus fdc insulin use: with fdc use Chronic kidney disease stage: stage 3 (moderate) Chronic kidney disease stage 3 subtype: stage 3b (GFR 30-44) Qualified Code(s): E11.22 - Type 2 diabetes mellitus with diabetic chronic kidney disease; N18.32 - Chronic kidney disease, stage 3b; Z79.4 - computer console operator (current) use of insulin Code(s): E11.22 - Type 2 diabetes mellitus with diabetic chronic kidney disease Status: Acute (8) Parastomal hernia: Onset Date: ~01/28/21 Qualifiers: Obstruction and gangrene presence: without obstruction or gangrene Qualified Code(s): K43.5 - Parastomal hernia without obstruction or gangrene Code(s): K43.5 - Parastomal hernia without obstruction or gangrene Status: Chronic DS: Summary Hospital Course Hospital Course: 83-year-old with past medical history of type 2 diabetes, hypertension, BPH, CAD, CKD, left bundle-branch block and colostomy in place post colon cancer that presented to the ED on 01/18/2024 after having a fall at home. Patient poor historian and was unable to state if he had loss of consciousness nor describe why he fell. Patient was helped by a a and sent bystander who called EMS. Patient is alert and oriented to self and place. He states that his is in the hospital currently. patient unable to bear weight or stand on the left leg. Patient having pretty significant leg, buttock and hip pain. Patient had scans of his left leg, hip and pelvis that did not reveal any fracture. Patient complained of buttock pain that shot numbness tingling and burning sensation down the leg. Patient symptoms more along the lines of sciatica. Discussed this with Orthopedics and they were unable to give patient a injection while in the hospital but this could be done as an outpatient. Will start patient on a Medrol Dosepak. Time Spent with Patient Time attestation: Total time spent providing and/or coordinating discharge services: Exam Narrative: GENERAL: Comfortable, no acute distress HENMT: moist mucous membranes EYES: EOM intact b/l NECK: no lymphadenopathy RESPIRATORY: clear to auscultation CARDIO: RRR GI: soft, nontender, bowel sounds present, peristomal hernia noted, colostomy in place SKIN: no rashes EXTREMITIES: no edema, redness or tenderness; Positive leg raise indicating sciatica DS: Data Data Completed and Pending Labs on day of discharge: Labs from last 24 hours 01/21/24 01/21/24 01/21/24 11:25 07:19 05:48 WBC 10.6 H RBC 3.22 L Hgb 10.2 L Hct 32.2 L MCV 100.0 MCH 31.7 MCHC 31.7 L RDW 12.9 Plt Count 160 MPV 9.9 Sodium 134 L Potassium 4.0 Chloride 100 Carbon Dioxide 31 H Anion Gap 3 L BUN 41 H Creatinine 1.70 H Estim Creat Clear Calc 29 Estimated G
[2024-01-21 14:00] VITALS: BP 139/53; PULSE 78; RESP 12; TEMP 36.2; O2SAT 100
[2024-01-21 16:33] LABS: Glucose Point of Care 108 mg/dl (65-105)
== END 2024-01-21 19:00 ==
LOC: ANHED 19:52 → ANH3MEDSUR 20:49
PROVIDERS: Internal Medicine Critical Care Medicine; Admitting Provider Internal Medicine; Emergency Provider Physician Assistant; PCP Family Medicine; Visit Provider Hospitalist
DX: M79.605 Pain in left leg (principal); M25.552 Pain in left hip; R26.2 Difficulty in walking, not elsewhere classified; W01.0XXA Fall on same level from slipping, tripping and stumbling without subsequent striking against object, initial encounter; N40.1 Benign prostatic hyperplasia with lower urinary tract symptoms; R33.8 Other retention of urine; K43.5 Parastomal hernia without obstruction or gangrene; I25.10 Atherosclerotic heart disease of native coronary artery without angina pectoris; I12.9 Hypertensive chronic kidney disease with stage 1 through stage 4 chronic kidney disease, or unspecified chronic kidney disease; E11.22 Type 2 diabetes mellitus with diabetic chronic kidney disease; N18.32 Chronic kidney disease, stage 3b; E78.5 Hyperlipidemia, unspecified; E03.9 Hypothyroidism, unspecified; I44.7 Left bundle-branch block, unspecified; Z85.038 Personal history of other malignant neoplasm of large intestine; Z90.49 Acquired absence of other specified parts of digestive tract; Z95.1 Presence of aortocoronary bypass graft; Z79.82 Long term (current) use of aspirin; Z79.4 Long term (current) use of insulin; Z79.02 Long term (current) use of antithrombotics/antiplatelets; Z95.2 Presence of prosthetic heart valve; Z86.73 Personal history of transient ischemic attack (TIA), and cerebral infarction without residual deficits; Z87.891 Personal history of nicotine dependence; Z93.3 Colostomy status
CPT/HCPCS: 36415; 70450; 72131; 72192; 73502; 73552; 73564; 80048; 80053; 81001; 82550; 82948; 85025; 85027; 85610; 85730; 86850; 86880; 86900; 86901; 86902; 86922; 96361; 96374; 96375; 96376; 97110; 97116; 97161; 97165; 97530; 99285; A9270; G0378; J1170; J1815; J2405; J2930; J3010; J3360; J7030

== ENCOUNTER 2024-09-23 08:56 | Emergency (ER) | payer MEDICARE, SELFPAY ==
[2024-09-23] VITALS (9 sets, daily range): BP systolic 136–173; BP diastolic 51–79; PULSE 65–87; RESP 13–17; TEMP 36.5; O2SAT 95–100
--- NOTE | ~2024-09-23 | CT_ITS ---
EXAMINATION: CTA [facility] DATE: 09/23/2024 11:26 INDICATION: Popliteal artery aneurysm. TECHNIQUE: Computed tomographic angiography (CTA) of the left lower extremity was performed with 150 mL Omnipaque-350 intravenous contrast. Automated exposure control and iterative reconstruction techni que were employed. The dose-length product was 645.03 mGy-cm. Maximum intensity projection 3D-reconst ructions of the arteries were created by the technologist on a separate workstation. COMPARISON: None. FINDINGS: The bladder is markedly distended. There is no free intraperitoneal fluid. There is no significant st enosis of left common femoral artery, profunda femoral artery, or superficial femoral artery. There i s moderate stenosis of the above-knee left popliteal artery. There is a 1.6 cm thrombosed saccular an eurysm of the above-knee popliteal artery. There is no significant stenosis of the tibioperoneal trun k, anterior tibial artery, posterior tibial artery, or peroneal artery. IMPRESSION: 1. 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 2. Moderate stenosis of left popliteal artery. 3. Three-vessel runoff. Reviewed, dictated and finalized at location A.
--- NOTE | ~2024-09-23 | CT_ITS ---
CT brain wo con Ordering provider: Susanne Dhillon PA-C History: 84 years Male with . headache . Comparison: January 18, 2024 Technique: CT of the head without contrast. Radiation reduction technique utilized.The dose-length product was 681 mGy-cm. FINDINGS: BRAIN PARENCHYMA AND CSF SPACES: Mild leukoaraiosis and diffuse cortical atrophy. Mild atheromatous d isease. Old left frontal infarct with encephalomalacia. No midline shift, mass effect or hemorrhage. The brain parenchyma and CSF spaces are otherwise normal. VISUALIZED PARANASAL SINUSES: Well aerated. MASTOIDS: Well aerated. BONES: The bones appear intact. SOFT TISSUES: Visualized nasopharynx is normal. Superficial soft tissues are normal. IMPRESSION: No acute intracranial findings. Reviewed, dictated and finalized at location A.
--- NOTE | 2024-09-23 09:35 | ED.EXTPRO ---
HPI - Extremity Problem General Chief complaint: Extremity Problem,Nontraumatic Stated complaint: calcified artery in LE Time Seen by Provider: 09/23/24 09:11 Source: patient and EMS Mode of arrival: EMS Limitations: dementia History of Present Illness HPI Narrative: This is an 84-year-old male that presents to the emergency department for abnormal outpatient imaging. 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 Sent in for further evaluation. He has been having pain in the left knee radiating into his lower leg over the last several weeks. He does not report any recent injuries. Although nursing facility did report a recent fall. Related Data Home Medications Medication Instructions Recorded Confirmed aspirin 81 mg tablet,delayed 81 mg PO DAILY 01/17/21 02/27/24 release atorvastatin 40 mg tablet 40 mg PO HS 01/17/21 02/27/24 cholecalciferol (vitamin D3) 50 50 mcg PO DAILY 01/17/21 02/27/24 mcg (2,000 unit) capsule losartan 25 mg tablet 25 mg PO DAILY 01/17/21 02/27/24 omega 4-dff-fxt-fish oil 1,200 mg 1,200 cap PO DAILY 01/17/21 02/27/24 (144 mg-216 mg) capsule (Fish Oil) potassium chloride 20 mEq 20 meq PO DAILY 01/17/21 02/27/24 tablet,extended release ezetimibe 10 mg tablet 10 mg PO DAILY 02/14/23 02/27/24 insulin aspart U-100 100 unit/mL 10 unit subcut QAM 02/14/23 02/27/24 (3 mL) subcutaneous pen insulin glargine 100 unit/mL (3 45 unit subcut HS 06/26/23 02/27/24 mL) subcutaneous pen clopidogrel 75 mg tablet 75 mg PO DAILY 12/17/23 02/27/24 gabapentin 100 mg capsule 100 mg PO TID 02/27/24 02/27/24 Allergies Allergy/AdvReac Type Severity Reaction Status Date / Time codeine Allergy Unknown Hives Verified 02/27/24 11:13 doxazosin Allergy Unknown Unknown Verified 02/27/24 11:13 egg Allergy Unknown Nausea Verified 02/27/24 11:13 erythromycin base Allergy Unknown Fever Verified 02/27/24 11:13 Influenza Virus Vaccines Allergy Unknown Unknown Verified 02/27/24 11:13 lisinopril Allergy Unknown Unknown Verified 02/27/24 11:13 metformin Allergy Unknown Unknown Verified 02/27/24 11:13 Penicillins Allergy Unknown Unknown Verified 02/27/24 11:13 Review of Systems Review of Systems: CONSTITUTIONAL: Denies fever CARDIOVASCULAR: Denies chest pain RESPIRATORY: Denies dyspnea. MUSCULOSKELETAL: Reports joint pain, and myalgia. NEUROLOGIC: Reports headache. Denies numbness, or weakness. 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 Microalbuminuria Personal history of colon cancer Personal history of transient ischemic attack (TIA), 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 Oliver for rectal cancer. History of coronary artery bypass graft History of left inguinal hernia repair Repair of left inguinal hernia during colon resection in December 2004 and then repair of recurrent left inguinal hernia with mesh in May 2005. History of left-sided carotid endarterectomy November 15, 2023 Family
[2024-09-23 10:05] LABS: Basophils Percent Auto 0.3 % (0.2-1.2); Eosinophils Absolute Auto 0.2 K/mm3 (0-0.3); Eosinophils Percent Auto 2.8 % (0-4.4); Hematocrit 32.1 % (42.0-52.0); Hemoglobin 10.2 g/dL (14.0-18.0); Immature Granulocyte Absolute 0.04 K/mm3 (0.00-0.031); Immature Granulocyte Percent A 0.5 % (0-0.5); Lymphocytes Absolute Auto 1.54 K/mm3 (0.9-3.2); Lymphocytes Percent Auto 20.6 % (18.3-44.2); Mean Corpuscular HGB Conc 31.8 g/dl (32-36); Mean Corpuscular Hemoglobin 32.2 pg (26-34); Mean Corpuscular Volume 101.3 fl (80-100); Mean Platelet Volume 10.8 fl (7.4-10.4); Monocytes Absolute Auto 1.3 K/mm3 (0.1-0.6); Monocytes Percent Auto 17.1 % (2.6-8.5); Neutrophils Absolute Auto 4.4 K/mm3 (1.3-6.7); Neutrophils Percent Auto 58.7 % (45.5-73.1); Platelet Count Result 239 k/mm3 (150-375); Red Blood Count 3.17 M/mm3 (4.6-6.20); Red Cell Distribution Width 13.9 % (11.5-14.5); White Blood Count 7.5 K/mm3 (4.5-10.0)
[2024-09-23 10:21] LABS: Anion Gap 8 mmol/L (4-12); Blood Urea Nitrogen 14 mg/dL (9-20); Calcium 9.1 mg/dL (8.4-10.2); Carbon Dioxide 27 mmol/L (22-30); Chloride 105 mmol/L (98-107); Estimated CRCL calculation 59 ml/min; Estimated Glomerular Filt Rate > 60; Glucose 73 mg/dL (65-110); Potassium 4.1 mmol/L (3.4-5.0); Sodium 140 mmol/L (137-145)
[2024-09-23 13:16] LABS: Glucose Point of Care 146 mg/dl (65-105)
--- NOTE | 2024-09-23 15:56 | PC.NURSE ---
Pt able to stand at bedside independently. Pt also able to take 2 steps but states he needs his walker that is at his long term. Report called to [place] at [facility]. All questions answered.
--- NOTE | 2024-09-23 18:14 | PC.NURSE ---
Pt to be transported back to [facility] by [facility].
== END 2024-09-23 18:18 ==
PROVIDERS: Emergency Provider Physician Assistant; PCP Family Medicine
DX: I72.4 Aneurysm of artery of lower extremity (principal); Z79.82 Long term (current) use of aspirin; Z79.4 Long term (current) use of insulin; Z85.048 Personal history of other malignant neoplasm of rectum, rectosigmoid junction, and anus; Z85.038 Personal history of other malignant neoplasm of large intestine; E78.5 Hyperlipidemia, unspecified; Z86.73 Personal history of transient ischemic attack (TIA), and cerebral infarction without residual deficits; E11.22 Type 2 diabetes mellitus with diabetic chronic kidney disease; I12.9 Hypertensive chronic kidney disease with stage 1 through stage 4 chronic kidney disease, or unspecified chronic kidney disease; E03.9 Hypothyroidism, unspecified; N18.32 Chronic kidney disease, stage 3b; Z87.891 Personal history of nicotine dependence
CPT/HCPCS: 36415; 70450; 73706; 80048; 82948; 85025; 99284; Q9967

== ENCOUNTER 2025-02-12 04:35 | Emergency (ER) | payer MEDICARE, SELFPAY ==
--- NOTE | ~2025-02-12 | CT_ITS ---
CT head without contrast Indication: Status post fall COMPARISON: 09/23/2024 Technique: Serial scans were obtained through the brain without the administration of contrast. Dose reduction technique was used on this scan by utilizing automated exposure control and iterative recon struction technique. The dose-length product (DLP) was 681.00 mGy-cm. Findings: There is no evidence of intracranial hemorrhage, mass lesion, or acute infarct. The ventri cles and subarachnoid spaces are dilated, consistent with mild atrophy. Stable probable chronic areas of infarct in the left frontal lobe. Low attenuation regions are seen within the periventricular whi te matter bilaterally, likely representing changes from chronic microvascular ischemic disease. There is no evidence of edema, mass effect or midline shift. The visualized paranasal sinuses and mastoi d air cells are clear. Impression: No intracranial hemorrhage, mass, or acute infarct. Stable chronic left frontal lobe infarct. Atrophy and chronic white matter changes, as above. Reviewed, dictated and finalized at location . Impression: No intracranial hemorrhage, mass, or acute infarct. Stable chronic left frontal lobe infarct. Atrophy and chronic white matter changes, as above.
--- NOTE | ~2025-02-12 | CT_ITS ---
Noncontrast CT scan of the cervical spine Technique: Multiple contiguous axial [address] images of the cervical spine were obtained and rec onstructed in 2D sagittal and coronal planes on the acquisition scanner. Dose reduction technique was used on this scan by utilizing automated exposure control, adjustment of the mA and/or kV according to patient size. The dose-length product (DLP) was 421.03 mGy-cm. Clinical History: Pain Findings: No fractures or dislocations. There is moderate degenerative change at C5-C6. There are mi ld degenerative change in the remainder of cervical spine. There is degenerative changes reticulation of the odontoid process with the anterior arch of C1. There is scattered facet joint degenerative ch anges throughout the cervical spine. There is bilateral neural foraminal narrowing at C3-C4 with bila teral facet arthropathy. There is right neural foraminal narrowing at C4-C5 with right facet arthropa thy. There is bilateral neural foraminal narrowing at C5-C6, with facet arthropathy and disc osteophy te complex. No prevertebral soft tissue swelling. There are mild patchy ground glass opacities in the lung apices, nonspecific. Impression: No fracture or subluxation of the cervical spine. Degenerative spondylosis, as above. Mild patchy ground glass opacities the lung apices, nonspecific. Correlate for infectious/inflammator y process or possibly pulmonary edema. Reviewed, dictated and finalized at [facility]. Impression: No fracture or subluxation of the cervical spine. Degenerative spondylosis, as above. Mild patchy ground glass opacities the lung apices, nonspecific. Correlate for infectious/inflammatory process or possibly pulmonary edema.
[2025-02-12 04:37] VITALS: BP 142/60; PULSE 67; RESP 12; TEMP 36.6; O2SAT 97
[2025-02-12] MEDS: DEXTROSE 50% 25 GM/50 ML SYRINGE IV PUSH (04:53)
--- NOTE | 2025-02-12 05:22 | ED_ITS ---
HPI - General Adult General Chief complaint: Head Injury Stated complaint: FALL Time Seen by Provider: 02/12/25 04:39 History of Present Illness HPI narrative: This is an 84-year-old male presenting from the detention after ground level fall. Patient says he got up to go the restroom in his leg gave out on him which is quite common. He struck his head on 1 of the small tables in his room. He did not lose consciousness. He has a small abrasion over the top of his head. He is on Plavix. No neurologic deficits. No vomiting. No other complaints. EMS was called to bring him to the hospital is found have a blood sugar of 57. The patient says he frequently has low blood sugars in the morning for he eats. He is requesting food. Related Data Home Medications ?Medication ?Instructions ?Recorded ?Confirmed ?Last Taken ?Type aspirin 81 mg tablet,delayed 81 mg PO DAILY 01/17/21 02/27/24 01/17/24 21:00 History release atorvastatin 40 mg tablet 40 mg PO 01/17/21 02/27/24 01/17/24 21:00 History cholecalciferol (vitamin D3) 50 50 mcg PO DAILY 01/17/21 02/27/24 01/17/24 History mcg (2,000 unit) capsule losartan 25 mg tablet 25 mg PO DAILY 01/17/21 02/27/24 01/17/24 History omega 1-ofg-dpo-fish oil 1,200 mg 1,200 cap PO DAILY 01/17/21 02/27/24 01/17/24 History (144 mg-216 mg) capsule (Fish Oil) potassium chloride 20 mEq 20 meq PO DAILY 01/17/21 02/27/24 01/17/24 History tablet,extended release ezetimibe 10 mg tablet 10 mg PO DAILY 02/14/23 02/27/24 01/17/24 History insulin aspart U-100 100 unit/mL 10 unit subcut QA 02/14/23 02/27/24 01/17/24 History (3 mL) subcutaneous pen insulin glargine 100 unit/mL (3 45 unit subcut HS 06/26/23 02/27/24 01/17/24 History mL) subcutaneous pen clopidogrel 75 mg tablet 75 mg PO DAILY 12/17/23 02/27/24 01/17/24 History gabapentin 100 mg capsule 100 mg PO TID 02/27/24 02/27/24 Unknown History Allergies Allergy/AdvReac Type Severity Reaction Status Date / Time codeine Allergy Unknown Hives Verified 02/27/24 11:13 doxazosin Allergy Unknown Unknown Verified 02/27/24 11:13 egg Allergy Unknown Nausea Verified 02/27/24 11:13 erythromycin base Allergy Unknown Fever Verified 02/27/24 11:13 Influenza Virus Vaccines Allergy Unknown Unknown Verified 02/27/24 11:13 lisinopril Allergy Unknown Unknown Verified 02/27/24 11:13 metformin Allergy Unknown Unknown Verified 02/27/24 11:13 Penicillins Allergy Unknown Unknown Verified 02/27/24 11:13 FORMERLY [facility], [facility] Past Medical History 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 Stage 3b chronic kidney disease Atherosclerosis of aorta Type 2 diabetes mellitus with diabetic chronic kidney disease Hypothyroid 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 Microalbuminuria Personal history of colon cancer Enlarged prostate with lower urinary tract symptoms (LUTS) Type 2 diabetes mellitus with other circulatory complications Personal history of transient ischemic attack (TIA), 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 History of coronary artery bypass graft History of aortic valve replacement History of colon resection Exploratory laparotomy with abdominoperineal resection as well as a left inguinal hernia repair in December [address] Oliver for rectal cancer. Family History Family History Father Heart disease Mother Heart disease Asthma Sibling Heart disease Social History Social History Smoking packs per day: 2 Smoking cigarettes per day: 40.0 Years smoked: 47 Smoking pack-years: 94.00 Smoking status: Former smoker Tobacco type: cigarettes Second hand tobacco smoke exposure: No Smoking end date: 12/02/96 Alcohol intake: never Substance use: never Substance use type: does not use Do You Feel Safe in your Home?: Yes Lack of Transportation: No Lack of Food: Never True Current Housing: I Have Housing Concerned About Future Housing: No Difficulty Paying Gas/Electric Bills: No Difficulty Paying for Meds: No Currently Unemployed: YES Education: High School Diploma/GED Living arrangements: with family Occupation/Education: retired Gender identity (if verbalized by the patient): Male Sexual Orientation (if Verbalized by the Patient): Straight or Heterosexual Spiritual care concerns: No Exam Narrative: APPEARANCE: No apparent distress. Head: atraumatic. EYES: EOMI, NOSE: Atraumatic NECK: Trachea midline RESPIRATORY: No increased rate of breathing clear to auscultation CARDIOVASCULAR: RRR, no peripheral edema ABDOMINAL: Non-distended soft nontender no guarding or rebound MUSCULOSKELETAl: No obvious deformities NEURO: Alert. Cranial nerves 2-12 grossly intact. Sensation light touch, motor function cerebellar function intact for 4 extremities. Gait exam was deferred. SKIN:: Warm, dry. Normal color PSYCHIATRIC: Normal affect Course Vital Signs Vital signs: Vital Signs Temperature 97.8 F 02/12/25 04:37 Pulse Rate 67 02/12/25 04:37 Respiratory Rate 12 02/12/25 04:37 Blood Pressure 142/60 H 02/12/25 04:37 Pulse Oximetry 97 02/12/25 04:37 Oxygen Delivery Room Air 02/12/25 04:37 Temperature 97.8 F 02/12/25 04:37 Pulse Rate 67 02/12/25 04:37 Respiratory Rate 12 02/12/25 04:37 Blood Pressure 142/60 H 02/12/25 04:37 Pulse Oximetry 97 02/12/25 04:37 Oxygen Delivery Room Air 02/12/25 04:37 Medical Decision Making MDM Narrative Medical decision making narrative: -Course: A 84-year-old male presenting after mechanical ground level fall on thinners. CT head and C-spine negative for acute traumatic injury. Patient not yet eaten and had low blood sugar. He was given D50 while we awaited CT results. He was then given breakfast. I discussed doing a larger workup with the patient including laboratory studies and the patient has declined. Patient would like to be discharged. He is A&O x3 with stable vital signs. He has been instructed return to the ED if he develops any new or worsening symptoms Vital Signs Vital Signs: Vital Signs Temperature 97.8 F 02/12/25 04:37 Pulse Rate 67 02/12/25 04:37 Respiratory Rate 12 02/12/25 04:37 Blood Pressure 142/60 H 02/12/25 04:37 Pulse Oximetry 97 02/12/25 04:37 Oxygen Delivery Room Air 02/12/25 04:37 Temperature 97.8 F 02/12/25 04:37 Pulse Rate 67 02/12/25 04:37 Respiratory Rate 12 02/12/25 04:37 Blood Pressure 142/60 H 02/12/25 04:37 Pulse Oximetry 97 02/12/25 04:37 Oxygen Delivery Room Air 02/12/25 04:37 Discharge Plan Discharge Clinical Impression: Fall, Hypoglycemia Patient Disposition: Home, Self-Care Condition: Stable Instructions: Antibiotic Form, Fall Prevention (ED) Additional Instructions: You were seen in the emergency department after a fall. Luckily you did not sustain any serious injuries. Your blood sugar was low but he would not eat breakfast. Please make sure your monitor blood sugar throughout the day. If you develop any new or worsening symptoms or would like re-evaluation please return to the ED for re-evaluation. Patient Language: Spanish Prescriptions: No Action ezetimibe 10 mg tablet 10 mg PO DAILY insulin glargine 100 unit/mL (3 mL) insulin pen 45 unit SUBCUT HS clopidogrel 75 mg tablet 75 mg PO DAILY gabapentin 100 mg capsule 100 mg PO TID tamsulosin 0.4 mg capsule 0.4 mg PO DAILY Qty: 90 1RF dapagliflozin propanediol 10 mg tablet 10 mg PO DAILY Qty: 90 1RF metoprolol tartrate 25 mg tablet 25 mg PO BID Qty: 180 1RF atorvastatin 40 mg Tablet 40 mg PO HS aspirin 81 mg Tablet,Delayed Release (Dr/Ec) 81 mg PO DAILY losartan 25 mg Tablet 25 mg PO DAILY cholecalciferol (vitamin D3) 50 mcg (2,000 unit) Capsule 50 mcg PO DAILY omega 0-cej-xnb-fish oil [Fish Oil] 1,200 (144-216) mg Capsule 1,200 cap PO DAILY potassium chloride 20 mEq Tablet Extended Release 20 meq PO DAILY insulin aspart U-100 100 unit/mL (3 mL) insulin pen 10 unit SUBCUT QAM Rx Instructions: 10 units at Breakfast, 10 UNITS AT LUNCH AND 10 UNITS AT DINNER cyclobenzaprine 5 mg tablet 5 mg PO TID PRN (Reason: muscle spasm) Qty: 60 0RF levothyroxine 75 mcg tablet 75 mcg PO DAILY Qty: 90 1RF Follow-up/Referrals: Richard Cartagena MD [Primary Care Provider] -
--- OUTSIDE RECORDS SUMMARY | 2025-02-12 05:27 | XMS_ITS | CONTINUITY OF CARE DOCUMENT ---
Author Name zach, zach Address Unknown Organization [facility] Address [address] [place] [address] Phone [phone] Care Team Providers Care Supervisor Phosphoric Acid Name Role Phone Todd Briceno MD Unavailable SHIKHA VELASQUEZ MD Unavailable [phone] SHIKHA VELASQUEZ MD Unavailable PROBLEMS Condition Status Date Provider Notes Screen for condition active Todd Briceno MD CAD s/p CABG active Todd Briceno MD Bioprosthetic aortic valve replacement active Todd Briceno MD HTN essential active Todd Briceno MD Hyperlipidemia active Todd Briceno MD Diabetes mellitus, type 2 active Todd zamorano MD CVA active Todd Briceno MD CKD, stage 3 active Todd Briceno MD Hypothyroidism active Todd Briceno MD CHF - diastolic active Todd Briceno MD Syncope active Todd Briceno MD Carotid artery disease, 100% occlueded LICA, >70% HELGA, f/w [place]. Christianson at the [place] active Todd Briceno MD ENCOUNTERS Date Type Provider Location Encounter Diag nosis 2 - 2 In-person encounter Office Visit Todd Briceno MD [place] 3 - 3 In-person encounter Office Visit Todd Briceno MD [place] Carotid artery disease, 100% occlueded LICA, >70% HELGA, f/w [facility]. Christianson at the [place] 3 - 8 In-person encounter Office Visit Todd Briceno MD [place] Screen for conditionCAD s/p CABGBioprosthetic aortic valve replacementHTN essentialHyperlipidemiaDiabetes mellitus, type 2CVACKD, stage 3HypothyroidismCHF - diastolicSyncope VITAL SIGNS Date Observation Value Provider Body Mass Index (Ratio) 31.01 kg/m2 Jose Alberto Briceno MD blood pressure, diastolic 64 mm[Hg] anastasia Kandi blood pressure, systolic 140 mm[Hg] She fili Kandi pulse rate 61 /min Dulce Kandi respiratory rate E&M 18 /min Dulce Kandi oxygen saturation, oximetry 97 % Dulce Kandi weight E&M 210 [lb_av] Dulce Kandi blood pressure, cuff size regular anastasia Kandi height E&M 69 [in_i] Dulce Kandi Body Mass Index (Ratio) 32.19 kg/m2 Jose Alberto Briceno MD blood pressure, diastolic 60 mm[Hg] An crow Alexander blood pressure, systolic 108 mm[Hg] Any abram Alexander oxygen saturation, oximetry 94 % Mindy Alexander pulse rate 59 /min Mindyabram Alexander blood pressure, cuff size large An crow Alexander weight E&M 218 [lb_av] Mindyabram Alexander height E&M 69 [in_i] Mindy Alexander Body Mass Index (Ratio) 32.34 kg/m2 Jose Alberto Briceno MD blood pressure, diastolic 68 mm[Hg] Juanita nkLoganalisa blood pressure, systolic 143 mm[Hg] Felecia Herbertoganalisa blood pressure, diastolic 68 mm[Hg] St evan Beebe blood pressure, systolic 143 mm[Hg] Milton Beebe blood pressure, cuff size large [facility] evan Beebe oxygen saturation, oximetry 98 % Ema Beebe respiratory rate E&M 16 /min Alex Beebe pulse rate 73 /min Ema Conte n height E&M 69 [in_i] Ema Conte n weight E&M 219 [lb_av] Ema castillo ALLERGIES Allergy Name Onset Date Reaction Criticality Status DOXAZOSIN High Criticality active ERTHROMYCIN High Criticality active CODEINE High Criticality active FLU High Criticality active EGGS High Criticality active PENICILLIN High Criticality active RESULTS Date Observation Value Provider Reference Range Interpretation Location lipoprotein, beta, serum, point, quantitative, calculated 67 mg/dL [facility] 0-99 HDL cholesterol, serum 30 mg/dL [facility] >39 Low triglyceride, serum, random 192 mg/dL [facility] 0-149 High cholesterol, serum 129 mg/dL [facility] 100-199 HISTORY OF MEDICATION USE Medication Status Instructions Dates Provider Indications Com ments aspirin 81 mg tablet,delayed release (DR/EC) active Take 1 tablet by mouth once a day Todd Briceno MD tizanidine 4 mg tablet active Todd Briceno MD insulin aspart U-100 100 unit/mL (3 mL) insulin pen active 18 units at breakfast, 14 units at lunch and dinner Todd Briceno MD insulin glargine 100 unit/mL (3 mL) insulin pen active 62 units at bedtime Todd Briceno MD ezetimibe 10 mg tablet active Take 1 tablet by mouth once daily 0 Dulce Chau levothyroxine 75 mcg tablet active TAKE 1 TABLET BY MOUTH ONCE DAILY Todd Briceno MD aspirin 325 mg tablet completed Take 1 tablet by mouth once a day - 2 Todd Briceno MD atorvastatin 80 mg tablet active Take 1 tablet by mouth once a day Todd Briceno MD furosemide 40 mg tablet active Take 1 tablet by mouth once a day Todd Briceno MD losartan 50 mg tablet active Take 1 tablet by mouth once a day Todd Briceno MD metformin 500 mg tablet completed Take 1 tablet by mouth twice a day - 2 Todd Briceno MD metoprolol tartrate 25 mg tablet active Take 1/2 tablet by mouth twice a day Todd Briceno MD potassium chloride 10 mEq tablet extended release active Take 1 tablet once a day Todd Briceno MD tamsulosin 0.4 mg capsule active Take 1 capsule by mouth once a day Todd Briceno MD ezetimibe 10 mg tablet completed Take 1 tablet by mouth once a day 3 - 0 Rhonda Jane SOCIAL HISTORY Date Observation Value Provider social history E&M S moking History: Melissa baldwin has never smoked. Todd Briceno MD social history reviewed E&M revi ewed - no changes required Todd Briceno MD smoking status Never smoker Dulce Kandi number of grandchildren Todd Briceno MD social history E&M S moking History: Melissa baldwin has never smoked. Todd Briceno MD social history reviewed E&M revi ewed - no changes required Todd Briceno MD smoking status Never smoker Mindy Alexander social history E&M S moking History: Melissa baldwin has never smoked. Todd Briceno MD social history reviewed E&M revi ewed - no changes required Todd Briceno MD smoking status Never smoker Ema blunt FUNCTIONAL STATUS Date Observation Value Provider HRA, CV Assess/Plan, Angina (inactive) Management Plan continue current therapy Todd Briceno MD HRA, CV Assess/Plan, Angina (inactive) Management Plan continue current therapy Todd Briceno MD Reason Fall Assessment not done medical c ontraindication Mindy Alexander HRA, CV Assess/Plan, Angina (inactive) Management Plan continue current therapy Todd Briceno MD INSURANCE PROVIDERS Payer name Policy type / Coverage type Griselda red democrat ID A[employer] MEDICARE ADVANTAGE HMO-POS HMO [id number] ADVANCE DIRECTIVES Name Date DISCUSSED - NO DECISION MADE TREATMENT PLAN Date Name Performer [id number],S, Todd Madrid ra, [place] [id number],S, H is updated medication list for this problem includes: Ezetimibe 10 Mg Tablet (Ezetimibe) ..... Take 1 tablet by mouth once daily Atorvastatin 80 Mg Tablet (Atorvastatin) ..... Take 1 tablet by mouth once a day Todd Briceno MD [id number],S, T he following medications were removed from the medication list: Aspirin 325 Mg Tablet (Aspirin) ..... Take 1 tablet by mouth once a day Metformin 500 Mg Tablet (Metformin) ..... Take 1 tablet by mouth twice a day His updated medication list for this problem includes: Aspirin 81 Mg Tablet,delayed Release (dr/ec) (Aspirin) ..... Take 1 tablet by mouth once a day Insulin Aspart U-100 100 Unit/ml (3 Ml) Insulin Pen (Insulin aspart u-100) ..... 18 units at breakfast, 14 units at lunch and dinner Insulin Glargine 100 Unit/ml (3 Ml) Insulin Pen (Insulin glargine) ..... 62 units at bedtime Losartan 50 Mg Tablet (Losartan) ..... Take 1 tablet by mouth once a day Todd Briceno MD [id number],S, Todd Madrid ra, MD [id number],S, Todd Madrid ra, [place] [id number],S, T he following medications were removed from the medication list: Aspirin 325 Mg Tablet (Aspirin) ..... Take 1 tablet by mouth once a day His updated medication list for this problem includes: Aspirin 81 Mg Tablet,delayed Release (dr/ec) (Aspirin) ..... Take 1 tablet by mouth once a day Furosemide 40 Mg Tablet (Furosemide) ..... Take 1 tablet by mouth once a day Losartan 50 Mg Tablet (Losartan) ..... Take 1 tablet by mouth once a day Metoprolol Tartrate 25 Mg Tablet (Metoprolol tartrate) ..... Take 1/2 tablet by mouth twice a day Todd Briceno MD [id number],S, B P today: 140/64 P rior BP: 108/60 (03/04/2023) The following medications were removed from the medication list: Aspirin 325 Mg Tablet (Aspirin) ..... Take 1 tablet by mouth once a day His updated medication list for this problem includes: Aspirin 81 Mg Tablet,delayed Release (dr/ec) (Aspirin) ..... Take 1 tablet by mouth once a day Furosemide 40 Mg Tablet (Furosemide) ..... Take 1 tablet by mouth once a day Losartan 50 Mg Tablet (Losartan) ..... Take 1 tablet by mouth once a day Metoprolol Tartrate 25 Mg Tablet (Metoprolol tartrate) ..... Take 1/2 tablet by mouth twice a day Todd Briceno MD [id number],S, Todd Madrid ra, [place] [id number],S, T he following medications were removed from the medication list: Aspirin 325 Mg Tablet (Aspirin) ..... Take 1 tablet by mouth once a day His updated medication list for this problem includes: Aspirin 81 Mg Tablet,delayed Release (dr/ec) (Aspirin) ..... Take 1 tablet by mouth once a day Metoprolol Tartrate 25 Mg Tablet (Metoprolol tartrate) ..... Take 1/2 tablet by mouth twice a day Todd Briceno MD [id number],S, Todd Madrid ra, [place] [id number],S, H is updated medication list for this problem includes: Aspirin 325 Mg Tablet (Aspirin) ..... Take 1 tablet by mouth once a day Losartan 50 Mg Tablet (Losartan) ..... Take 1 tablet by mouth once a day Metformin 500 Mg Tablet (Metformin) ..... Take 1 tablet by mouth twice a day Todd Briceno MD [id number],W, Todd Madrid ra, MD [id number],S, Todd Madrid ra, [place] [id number],B, H is updated medication list for this problem includes: Ezetimibe 10 Mg Tablet (Ezetimibe) ..... Take 1 tablet by mouth once a day Atorvastatin 80 Mg Tablet (Atorvastatin) ..... Take 1 tablet by mouth once a day Todd Briceno MD [id number],B, B P today: 108/60 P rior BP: 143/68 (01/24/2023) His updated medication list for this problem includes: Aspirin 325 Mg Tablet (Aspirin) ..... Take 1 tablet by mouth once a day Furosemide 40 Mg Tablet (Furosemide) ..... Take 1 tablet by mouth once a day Losartan 50 Mg Tablet (Losartan) ..... Take 1 tablet by mouth once a day Metoprolol Tartrate 25 Mg Tablet (Metoprolol tartrate) ..... Take 1/2 tablet by mouth twice a day Todd Briceno MD [id number],S, H is updated medication list for this problem includes: Aspirin 325 Mg Tablet (Aspirin) ..... Take 1 tablet by mouth once a day Metoprolol Tartrate 25 Mg Tablet (Metoprolol tartrate) ..... Take 1/2 tablet by mouth twice a day Todd Briceno MD [id number],STodd ra, MD [id number],C, B P today: 143/68 Todd Briceno MD [id number],B, Todd Madrid ra, [place] [id number],STodd ra, MD [id number],S, Todd Madrid ra, MD [id number],S, Todd Madrid ra, MD Cardiology Todd Graff Cardiology: H is updated medication list for this problem includes: Ezetimibe 10 Mg Tablet (Ezetimibe) ..... Take 1 tablet by mouth once daily Atorvastatin 80 Mg Tablet (Atorvastatin) ..... Take 1 tablet by mouth once a day Todd Briceno MD Cardiology: T he following medications were removed from the medication list: Aspirin 325 Mg Tablet (Aspirin) ..... Take 1 tablet by mouth once a day Metformin 500 Mg Tablet (Metformin) ..... Take 1 tablet by mouth twice a day His updated medication list for this problem includes: Aspirin 81 Mg Tablet,delayed Release (dr/ec) (Aspirin) ..... Take 1 tablet by mouth once a day Insulin Aspart U-100 100 Unit/ml (3 Ml) Insulin Pen (Insulin aspart u-100) ..... 18 units at breakfast, 14 units at lunch and dinner Insulin Glargine 100 Unit/ml (3 Ml) Insulin Pen (Insulin glargine) ..... 62 units at bedtime Losartan 50 Mg Tablet (Losartan) ..... Take 1 tablet by mouth once a day Todd Briceno MD Cardiology Todd Graff Cardiology Todd Graff Cardiology: T he following medications were removed from the medication list: Aspirin 325 Mg Tablet (Aspirin) ..... Take 1 tablet by mouth once a day His updated medication list for this problem includes: Aspirin 81 Mg Tablet,delayed Release (dr/ec) (Aspirin) ..... Take 1 tablet by mouth once a day Furosemide 40 Mg Tablet (Furosemide) ..... Take 1 tablet by mouth once a day Losartan 50 Mg Tablet (Losartan) ..... Take 1 tablet by mouth once a day Metoprolol Tartrate 25 Mg Tablet (Metoprolol tartrate) ..... Take 1/2 tablet by mouth twice a day Todd Briceno MD Cardiology: B P today: 140/64 P rior BP: 108/60 (03/04/2023) The following medications were removed from the medication list: Aspirin 325 Mg Tablet (Aspirin) ..... Take 1 tablet by mouth once a day His updated medication list for this problem includes: Aspirin 81 Mg Tablet,delayed Release (dr/ec) (Aspirin) ..... Take 1 tablet by mouth once a day Furosemide 40 Mg Tablet (Furosemide) ..... Take 1 tablet by mouth once a day Losartan 50 Mg Tablet (Losartan) ..... Take 1 tablet by mouth once a day Metoprolol Tartrate 25 Mg Tablet (Metoprolol tartrate) ..... Take 1/2 tablet by mouth twice a day Todd Briceno MD Cardiology Todd Graff Cardiology: T he following medications were removed from the medication list: Aspirin 325 Mg Tablet (Aspirin) ..... Take 1 tablet by mouth once a day His updated medication list for this problem includes: Aspirin 81 Mg Tablet,delayed Release (dr/ec) (Aspirin) ..... Take 1 tablet by mouth once a day Metoprolol Tartrate 25 Mg Tablet (Metoprolol tartrate) ..... Take 1/2 tablet by mouth twice a day Tdod Briceno MD Cardiology Todd Graff Cardiology: H is updated medication list for this problem includes: Aspirin 325 Mg Tablet (Aspirin) ..... Take 1 tablet by mouth once a day Losartan 50 Mg Tablet (Losartan) ..... Take 1 tablet by mouth once a day Metformin 500 Mg Tablet (Metformin) ..... Take 1 tablet by mouth twice a day Todd Briceno MD Cardiology Todd Graff Cardiology Todd Graff Cardiology: H is updated medication list for this problem includes: Ezetimibe 10 Mg Tablet (Ezetimibe) ..... Take 1 tablet by mouth once a day Atorvastatin 80 Mg Tablet (Atorvastatin) ..... Take 1 tablet by mouth once a day Todd Briceno MD Cardiology: B P today: 108/60 P rior BP: 143/68 (01/24/2023) His updated medication list for this problem includes: Aspirin 325 Mg Tablet (Aspirin) ..... Take 1 tablet by mouth once a day Furosemide 40 Mg Tablet (Furosemide) ..... Take 1 tablet by mouth once a day Losartan 50 Mg Tablet (Losartan) ..... Take 1 tablet by mouth once a day Metoprolol Tartrate 25 Mg Tablet (Metoprolol tartrate) ..... Take 1/2 tablet by mouth twice a day Todd Briceno MD Cardiology: H is updated medication list for this problem includes: Aspirin 325 Mg Tablet (Aspirin) ..... Take 1 tablet by mouth once a day Metoprolol Tartrate 25 Mg Tablet (Metoprolol tartrate) ..... Take 1/2 tablet by mouth twice a day Todd Briceno MD Cardiology Todd Graff Cardiology: B P today: 143/68 Todd Briceno MD Cardiology Todd Graff Cardiology Todd Graff Cardiology Todd Graff Cardiology Todd Graff Date Name LIPID PANEL HISTORY OF PROCEDURES Procedure Date Procedure Name Provider Procedure Notes S tatus EKG Todd Briceno MD complet ed
--- OUTSIDE RECORDS SUMMARY | 2025-02-12 05:27 | XMS_ITS | Referral Summary ---
Author Organization [facility] Address [address] [place] [address] Care Team Providers Care Child Care Nurse Name Role Phone Unavailable Primary Care Provider Unavailabl e Source Comments [facility],non-owned Affiliates and Associated Physician Practices is amultiple site organization consisting of ambulatory clinics and hospital sitesin [place], [place], [place] and [place]. This disclosure is being madepursuant to the Care Everywhere program and may not contain all information available regarding this patient. Last updated 18.[employer] [facility] Allergies No known active allergies Medications * Be aware that medications may not be up to date on this document. Alwaysverify current medications with the patient. Medication Sig Dispensed Refills Start Date End Date Status acetaminophen (Tylenol) 325 MG tablet Take 2 (two) tablets by mouth every 6 hours as needed Maximum allowable Acetaminophen amount = 4 Grams (4000 mg) / 24 hours. 03/26/2024 Active aspirin (Aspirin) 81 MG chew tablet Take 1 (one) tablet by mouth once daily 30 tablet 03/27/2024 Active insulin aspart (NovoLOG) pen Inject 6 (six) Units subcutaneously 3 times daily with meals 100 mL 03/26/2024 Active insulin glargine (Lantus/Semglee) 100 units/mL pen Inject 24 (twenty four) Units subcutaneously at bedtime 100 mL 03/26/2024 Active atorvastatin (Lipitor) 80 MG tablet Take 1 (one) tablet by mouth at bedtime 30 tablet 03/26/2024 Active tamsulosin (Flomax) 0.4 MG capsule Take 1 (one) capsule by mouth once daily At the same time every day after a meal. 30 capsule 03/27/2024 Active clopidogrel (plaVIX) 75 MG tablet Take 1 (one) tablet by mouth once daily 30 tablet 03/27/2024 Active levothyroxine (Synthroid) 75 MCG tablet Take 1 (one) tablet by mouth once daily 30 tablet 03/27/2024 Active vitamin D3 (Cholecaciferol) 125 MCG (5000 UT) tablet Take 1 (one) tablet by mouth once daily 30 tablet 03/27/2024 Active Active Problems Problem Noted Date Diagnosed Date Chronic indwelling Romero catheter 03/21/2024 Complicated UTI (urinary tract infection) 2023 Chronic kidney disease, unspecified 01/24/2023 Atherosclerosis of coronary artery bypass graft(s) without angina pectoris 01/24/2023 03/22/2024 CVA (cerebrovascular accident) 01/24/2023 0 03/22/2024 Hyperlipidemia 01/24/2023 03/22/2024 Hypothyroidism 01/24/2023 03/22/2024 Presence of prosthetic heart valve 01/24/2023 03/22/2024 Type 2 diabetes mellitus wit hout complication, with long-term current use of insulin 12/29/2022 Benign prostatic hyperplasia without lower urinary tract symptoms 12/29/2022 03/22/2024 Chronic diastolic heart failure 12/29/2022 03/22/2024 Dyslipidemia 12/29/2022 03/22/2024 History of colon cancer 12/29/2022 03/22/20 History of CVA (cerebrovascular accident) 202203/22/2024 Macrocytic anemia 12/29/2022 03/22/2024 Neuropathy 12/29/2022 03/22/2024 Primary hypertension 12/29/2022 03/22/2024 Stage 3b chronic kidney disease 12/29/2022 03/22/2024 Resolved Problems Problem Noted Date Diagnosed Date Resolved Date Delirium 03/21/2024 03/26/2024 Altered mental status, unspe cified altered mental status type 03/21/2024 03/26/2024 Social History Tobacco Use Types Packs/Day Years Used Date Smoking Tobacco: Former Cigarettes Smokeless Tobacco: Former Tobacco Cessation:Counseling Given: Not Answered AUDIT-C Answer Date Recorded Q1: How often do you have a drink containing alcohol? Never 03/22/2024 Q2: How many drinks containi ng alcohol do you have on a typical day when you are drinking? Patient does not drink Q3: How often do you have si x or more drinks on one occasion? Never 03/22/2024 Overall Financial Resource Strain (CARDIA) Answe r Date Recorded How hard is it for you to pa y for the very basics like food, housing, medical care, and heating? Not hard at all 03/22/2024 [facility] [place] [facility] - Occupational Stress Questionnaire Answer Date Recorded Do you feel stress - tense, restless, nervous, or anxious, or unable to sleep at night because your mind is troubled all the time - these days? To some extent 03/22/2024 Hunger Vital Sign Answer Date Recorded Within the past 12 months, y ou worried that your food would run out before you got the money to buy more. Never true 03/22/20 24 Within the past 12 months, t he food you bought just didn't last and you didn't have money to get more. Never true 03/22/2024 PRAPARE - Transportation Answer Date Re corded In the past 12 months, has l ack of transportation kept you from medical appointments or from getting medications? Yes 03/03 In the past 12 months, has l ack of transportation kept you from meetings, work, or from getting things needed for daily living? Yes 03/22/2024 Housing Stability Vital Sign Answer Sohan e Recorded In the last 12 months, was t here a time when you were not able to pay the mortgage or rent on time? No 03/22/2024 In the last 12 months, how many places have you lived? 1 03/22/2024 In the last 12 months, was t here a time when you did not have a steady place to sleep or slept in a assisted (including now)? Yes 03/22/2024 Sex and Gender Information Value Date Recorded Sex Assigned at Not on file Gender Identity Not on file Sexual Orientation Not on file Last Filed Vital Signs Vital Sign Reading Time Taken Comments Blood Pressure 145/59 03/26/2024 4:55 AM CDT Pulse 75 03/26/2024 4:55 AM CDT Temperature 37.2 C (99 F) 03/26/2024 4:55 AM CDT Respiratory Rate 18 03/26/2024 4:55 AM CDT Oxygen Saturation 97% 03/26/2024 4:55 AM CDT Inhaled Oxygen Concentration - - Weight 85.5 kg (188 lb 6.4 oz) 03/22/2024 2:03 A M CDT Height 175.3 cm (5' 9 ) 03/22/2024 2:03 AM CDT Body Mass Index 27.82 03/22/2024 2:03 AM CDT Functional Status Functional Status Response Date of Assess ment Is person deaf or have serious hearing difficult y? No 03/22/2024 Is person blind or have serious difficulty seein g? No 03/22/2024 Does person have serious dif ficulty walking/climbing stairs? Yes 03/22/2024 Does person have difficulty dressing/bathing? Ye s 03/22/2024 Does person have difficulty doing errands alone? Yes 03/22/2024 Cognitive Status Response Date of Assessm ent Does person have difficulty concentrating/remembering/making decisions? Yes 03/22/2024 Plan of Treatment Not on file Advance Directives * Full Code (Latest Code Status on File) Date Activated Date Inactivated Comments 03/21/2024 8:50 PM 03/21/2024 9:23 PM
--- OUTSIDE RECORDS SUMMARY | 2025-02-12 05:27 | XMS_ITS | Patient Health Summary ---
Author Organization [facility] Address [address] [place] [address] Care Team Providers Care Police Dispatcher Name Role Phone Unavailable Primary Care Provider Unavailabl e Note from [facility],non-owned Affiliates and Associated Physician Practices is amultiple site organization consisting of ambulatory clinics and hospital sitesin [place], [place], [place] and [place]. This disclosure is being madepursuant to the Care Everywhere program and may not contain all information available regarding this patient. Last updated 18.[facility] Allergies No known active allergies Medications * Be aware that medications may not be up to date on this document. Alwaysverify current medications with the patient. * acetaminophen (Tylenol) 325 MG tablet(Started 03/26/2024) Take 2 (two) tablets by mouth every 6 hours as needed Maximum allowable Acetaminophen amount = 4 Grams (4000 mg) / 24 hours. * aspirin (Aspirin) 81 MG chew tablet(Started 03/27/2024) Take 1 (one) tablet by mouth once daily * insulin aspart (NovoLOG) pen(Started 03/26/2024) Inject 6 (six) Units subcutaneously 3 times daily with meals * insulin glargine (Lantus/Semglee) 100 units/mL pen(Started 03/26/2024) Inject 24 (twenty four) Units subcutaneously at bedtime * atorvastatin (Lipitor) 80 MG tablet(Started 03/26/2024) Take 1 (one) tablet by mouth at bedtime * tamsulosin (Flomax) 0.4 MG capsule(Started 03/27/2024) Take 1 (one) capsule by mouth once daily At the same time every day after a meal. * clopidogrel (plaVIX) 75 MG tablet(Started 03/27/2024) Take 1 (one) tablet by mouth once daily * levothyroxine (Synthroid) 75 MCG tablet(Started 03/27/2024) Take 1 (one) tablet by mouth once daily * vitamin D3 (Cholecaciferol) 125 MCG (5000 UT) tablet(Started 03/27/2024) Take 1 (one) tablet by mouth once daily Active Problems Problem Noted Date Diagnosed Date [...] and heating? Not hard at all 03/22/2024 [facility] - Occupational Stress [...] place to sleep or slept in a [place] [facility] [place] (including now)? Yes 03/22/2024 Sex and Gender [...] Mass Index 27.82 03/22/2024 2:03 AM CDT Procedures * GLUCOSE - POINT OF CARE(Performed 03/26/2024) * BASIC METABOLIC PANEL (CALCIUM TOTAL)(Performed 03/26/2024) * CBC W AUTO DIFFERENTIAL(Performed 03/26/2024) * GLUCOSE - POINT OF CARE(Performed 03/26/2024) * GLUCOSE - POINT OF CARE(Performed 03/25/2024) * GLUCOSE - POINT OF CARE(Performed 03/25/2024) * GLUCOSE - POINT OF CARE(Performed 03/25/2024) * PREPARE RBC LEUKOREDUCED UNIT(Performed 03/25/2024) * GLUCOSE - POINT OF CARE(Performed 03/24/2024) * GLUCOSE - POINT OF CARE(Performed 03/24/2024) * GLUCOSE - POINT OF CARE(Performed 03/24/2024) * MAGNESIUM BLOOD(Performed 03/24/2024) * BASIC METABOLIC PANEL (CALCIUM TOTAL)(Performed 03/24/2024) * GLUCOSE - POINT OF CARE(Performed 03/24/2024) * GLUCOSE - POINT OF CARE(Performed 03/23/2024) * GLUCOSE - POINT OF CARE(Performed 03/23/2024) * SARS-COV-2 (COVID19) + RSV PCR RAPID(Performed 03/23/2024) * GLUCOSE - POINT OF CARE(Performed 03/23/2024) * GLUCOSE - POINT OF CARE(Performed 03/23/2024) * GLUCOSE - POINT OF CARE(Performed 03/23/2024) * GLUCOSE - POINT OF CARE(Performed 03/22/2024) * GLUCOSE - POINT OF CARE(Performed 03/22/2024) * LACTIC ACID BLOOD REFLEX TO REPEAT(Performed 03/22/2024) * GLUCOSE - POINT OF CARE(Performed 03/22/2024) * LACTIC ACID REPEAT REFLEX(Performed 03/22/2024) * LACTIC ACID BLOOD REFLEX TO REPEAT(Performed 03/22/2024) * GLUCOSE - POINT OF CARE(Performed 03/22/2024) * GLUCOSE - POINT OF CARE(Performed 03/22/2024) * BLOOD TYPE VERIFICATION(Performed 03/22/2024) * BASIC METABOLIC PANEL (CALCIUM TOTAL)(Performed 03/22/2024) * CBC W/O DIFFERENTIAL(Performed 03/22/2024) * LACTIC ACID BLOOD(Performed 03/22/2024) * LACTIC ACID BLOOD(Performed 03/21/2024) * LACTIC ACID BLOOD(Performed 03/21/2024) * BASIC METABOLIC PANEL (CALCIUM TOTAL)(Performed 03/21/2024) * CT HEAD WO CONTRAST(Performed 03/21/2024) Performed for Altered mental status, unspecified altered mental status type * SARS-COV-2 (COVID-19)+INFLU A+B PCR RAPID(Performed 03/21/2024) * CULTURE BLOOD(Performed 03/21/2024) * CULTURE BLOOD(Performed 03/21/2024) * EKG 12-LEAD(Performed 03/21/2024) Performed for Altered mental status, unspecified altered mental status type * LACTIC ACID REPEAT REFLEX(Performed 03/21/2024) * TROPONIN-I HIGH SENSITIVE REFLEX 1HOUR(Performed 03/21/2024) * BLOOD GASES ESTEFANY + COOX PANEL(Performed 03/21/2024) * LACTIC ACID BLOOD REFLEX TO REPEAT(Performed 03/21/2024) * XR CHEST 1VW PORTABLE(Performed 03/21/2024) Performed for Altered mental status, unspecified altered mental status type * URINE DRUG SCREEN IMMUNOASSAY(Performed 03/21/2024) * URINE MICROSCOPIC ONLY REFLEX TO CULTURE(Performed 03/21/2024) * URINALYSIS REFLEX MICROSCOPIC REFLEX CULTURE(Performed 03/21/2024) * CULTURE URINE(Performed 03/21/2024) * LEGIONELLA ANTIGEN URINE(Performed 03/21/2024) * ANTIBODY IDENTIFICATION(Performed 03/21/2024) * SULTANA DIRECT(Performed 03/21/2024) * TYPE + SCREEN PANEL(Performed 03/21/2024) * DIFFERENTIAL MANUAL(Performed 03/21/2024) * COMPREHENSIVE METABOLIC PANEL(Performed 03/21/2024) * CBC W AUTO DIFFERENTIAL(Performed 03/21/2024) * TROPONIN-I HIGH SENSITIVE BASELINE + 1HR(Performed 03/21/2024) Results * (ABNORMAL) GLUCOSE - POINT OF CARE (03/26/2024 12:44 PM CDT) Only the most recent of19 resultswithin the time period is included. Pathologist [facility] [place] Glucose WB/POC 256(H) 70 - 115 mg/dL 03/26/2024 12:49 PM [facility] Specimen Type Cap Fingerstick 2023 12:49 PM [facility] Blood BLOOD SPECIMEN / Unknown 03/26/2024 12:44 PM CDT 03/26/2024 12:49 PM CDT Anais Murray MD LAB - POINT OF CARE ORDERABLES [facility] [address] [place] [address], [facility] [phone] * (ABNORMAL) CBC W AUTO DIFFERENTIAL (03/26/2024 10:16 AM CDT) Only the most recent of2 resultswithin the time period is included. [facility] WBC 8.1 4.0 - 10.7 x10E9/L 03/26/2024 10:41 AM [facility] RBC Count 2.91(L) 4.30 - 5.80 x10E12/L 03/26/2024 10:41 AM [facility] Hemoglobin 9.2(L) 13.3 - 17.5 g/dL 03/26/2024 10:41 AM [facility] Hematocrit 26.6(L) 38.7 - 51.1 % 03/26/2024 10:41 AM [facility] MCV 91.4 80.0 - 98.0 fL 03/26/2024 10:41 AM [facility] MCH 31.6 26.7 - 33.6 pg 03/26/2024 10:41 AM [facility] MCHC 34.6 31.7 - 36.3 g/dL 03/26/2024 10:41 AM [facility] RDW-CV 13.8 11.3 - 14.8 % 03/26/2024 10:41 AM [facility] Platelet Count 196 150 - 420 x10E9/L 03/26/2024 10:41 AM [facility] MPV 10.3 7.8 - 11.4 fL 03/26/2024 10:41 AM [facility] Neutrophil % 56.7 41.0 - 74.0 % 03/26/2024 10:41 AM [facility] Lymphocyte % 17.7 17.0 - 47.0 % 03/26/2024 10:41 AM [facility] Monocyte % 18.0(H) 3.0 - 11.0 % 03/26/2024 10:41 AM [facility] Eosinophil % 6.4 0.0 - 7.0 % 03/26/2024 10:41 AM [facility] Basophil % 0.6 0.0 - 1.6 % 03/26/2024 10:41 AM [facility] Immature Granulocytes % 0.6 0.0 - 1.0 % 03/26/2024 10:41 AM [facility] Neutrophil Absolute 4.58 1.60 - 7.50 x10E9/L 03/26/2024 10:41 AM [facility] Lymphocyte Absolute 1.43 1.00 - 4.40 x10E9/L 03/26/2024 10:41 AM [facility] Monocyte Absolute 1.46(H) 0.15 - 1.00 x10E9/L 03/26/2024 10:41 AM [facility] Eosinophil Absolute 0.52 0.00 - 0.60 x10E9/L 03/26/2024 10:41 AM [facility] Basophil Absolute 0.05 0.00 - 0.13 x10E9/L 03/26/2024 10:41 AM [facility] Blood BLOOD SPECIMEN / Unknown Lab Venipuncture / Unknown 03/26/2024 10:16 AM T 03/26/2024 10:30 AM [facility] Anais Murray MD LAB - HEMATOLOGY ORD ERABLES [facility] [address] [place] [address], [facility] [phone] * (ABNORMAL) BASIC METABOLIC PANEL (CALCIUM TOTAL) (03/26/2024 10:16 AM [facility]) Only the most recent of4 resultswithin the time period is included. BUN 9 7 - 26 mg/dL 03/26/2024 12:08 PM [facility] Creatinine 1.51(H) 0.71 - 1.16 mg/dL 03/26/2024 12:08 PM [facility] Sodium 138 136 - 145 mmol/L 03/26/2024 12:08 PM [facility] Potassium 3.5 3.5 - 4.5 mmol/L 03/26/2024 12:08 PM [facility] Chloride 108(H) 98 - 107 mmol/L 03/26/2024 12:08 PM [facility] CO2 20(L) 22 - 29 mmol/L 03/26/2024 12:08 PM [facility] Glucose 186(H) 70 - 115 mg/dL 03/26/2024 12:08 PM [facility] Calcium 8.8 8.4 - 10.2 mg/dL 03/26/2024 12:08 PM [facility] Anion Gap 10 6 - 16 03/26/2024 12:08 PM [facility] BUN/Creatinine Ratio 6(L) 7 - 23 03/26/2024 12:08 PM [facility] Osmolality Calculated 290 275 - 295 mOsm/kg 03/26/2024 12:08 PM [facility] eGFR by CKD-EPI 45(L) >=90 mL/min/1.7 3 m2 03/26/2024 12:08 PM [facility] Blood BLOOD SPECIMEN / Unknown Lab Venipuncture / Unknown 03/26/2024 10:16 AM CDT 03/26/2024 10:31 AM [facility] Anais Murray MD LAB - CHEMISTRY ORDE DINESH [facility] Organization Address City/State/ZIP Co de Phone Number [facility] [address] [place] [address], [facility] [phone] * PREPARE (CROSSMATCH) RBC UNIT(S), 2 Units (03/25/2024 1:17 AM CDT) Unit Description AS1 LR PRBC [facility] Unit ABO A [facility] Unit Rh POS [facility] Product Number R02 [facility] B LOOD BANK LAB Unit Donor # [id number] [facility] Unit Status released [facility] BLOO D BANK LAB Product Code [id number] [facility] BLO OD [facility]ANK LAB Blood Type Barcode 6200 [facility] Expiration Date S BLOOD BANK LAB Unit Description AS1 LR PRBC [facility] Unit ABO A [facility] B[facility]OD [facility] Unit Rh POS [facility] BLOOD [facility] Product [facility] R02 [facility] B LOOD BANK LAB Unit Donor # [id number] [facility] Unit Status released [facility] BLOO D BANK LAB Product Code [id number] [facility] BLO OD BANK LAB Blood Type Barcode 6200 [facility] Expiration Date S BLOOD BANK LAB Blood Bank BLOOD SPECIMEN / Unknown 03/21/2024 6:36 PM CDT Loco Watt MD LAB - BLOOD BANK ORD ERABLES [facility] [address] [place] [phone], [facility] [phone] * (ABNORMAL) MAGNESIUM BLOOD (03/24/2024 9:27 AM CDT) Magnesium 1.3(L) 1.6 - 2.6 mg/dL 03/24/2024 10:34 AM CDT [facility] Blood BLOOD SPECIMEN / Unknown Lab Venipuncture / Unknown 03/24/2024 9:27 AM CDT 03/24/2024 10:03 AM CDT Anais Mruray MD LAB - CHEMISTRY ORDE DINESH [facility] [address] [place] [address], [place] [phone] * SARS-COV-2 (COVID19) + RSV PCR RAPID (03/23/2024 5:41 PM CDT) Pathologist [facility] [place] COVID-19 PCR Not detected Not detected 03/23/20 6:40 PM CDT [facility] RSV PCR Not detected Not detected 03/23/2024 6:40 PM CDT [facility] Microbiology SPECIMEN FROM NASOPHARYNGEAL STRUCTURE / Unknown Collection / Unknown 03/23/2024 5:41 PM CDT 03/23/2024 6:02 PM CDT Narrative [facility] - 03/23/2024 6:40 PM CDT This nucleic acid amplification assay has been authorized by the Food and Drug administration (FDA) under an Emergency Use Authorization (EUA). This test is only authorized for the duration of time the declaration that circumstances exist justifying the authorization of emergency use of in vitro diagnostic tests for detection of SARS-CoV-2 virus and/or diagnosis of COVID-19 infection under section 564(b)(1) of the Act, 21 U.S.C 360bbb-3 (b)(1), unless the authorization is terminated or revoked sooner. Fact Sheets for this EUA assay are available upon request. Charbel Galeas MD LAB - MICROBIOL OGY ORDERABLES Performing Organization Address City/[facility]/ZIP Co de Phone Number [address] [address], [facility] [phone] * (ABNORMAL) LACTIC ACID BLOOD REFLEX TO REPEAT (03/22/2024 1:32 PM CDT) Only the most recent of3 resultswithin the time period is included. [facility] Lactic Acid-Stat 2.6(H) <=2.0 mmol/L 03/22/2024 2:07 PM CDT [facility] Blood BLOOD SPECIMEN / Unknown Lab Venipuncture / Unknown 03/22/2024 1:32 PM CDT 03/22/2024 1:47 PM CDT Loco Watt MD LAB - CHEMISTRY MARK MONTIEL [address] [place] [address], [facility] [phone] * LACTIC ACID REPEAT REFLEX (03/22/2024 9:42 AM CDT) Only the most recent of2 resultswithin the time period is included. [facility] Lactic Acid Repeat Reflex Order LACTIC ACID REPEAT HAS BEEN ORDERED 03/22/2024 12:02 PM CDT [facility] Blood BLOOD SPECIMEN / Unknown Lab Venipuncture / Unknown 03/22/2024 9:42 AM CDT 03/22/2024 10:16 AM CDT Loco Watt MD LAB - CHEMISTRY ORDE DINESH [address] [address], [place] [phone] * BLOOD TYPE VERIFICATION (03/22/2024 5:39 AM CDT) [facility] ABO Rh A POS 03/22/2024 6:3 4 AM CDT [facility] B[facility]OD [facility] LAB Blood Bank BLOOD SPECIMEN / Unknown Venipuncture / Unknown 03/22/2024 5:39 AM CDT 03/22/2024 6:06 AM CDT Loco Watt MD LAB - BLOOD BANK ORD ERABLES [facility] B[facility]OD [facility] LAB [address] [place] [address], [facility] [phone] * (ABNORMAL) CBC W/O DIFFERENTIAL (03/22/2024 5:39 AM CDT) [facility] WBC 10.6 4.0 - 10.7 x10E9/L 03/22/2024 6:22 AM CDT [facility] RBC Count 2.97(L) 4.30 - 5.80 x10E12/L 03/22/2024 6:22 AM CDT [facility] Hemoglobin 9.4(L) 13.3 - 17.5 g/dL 03/22/2024 6:22 AM CDT [facility] Hematocrit 28.0(L) 38.7 - 51.1 % 03/22/2024 6:22 AM T [facility] MCV 94.3 80.0 - 98.0 fL 03/22/2024 6:22 AM CDT [facility] MCH 31.6 26.7 - 33.6 pg 03/22/2024 6:22 AM CDT [facility] MCHC 33.6 31.7 - 36.3 g/dL 03/22/2024 6:22 AM T [facility] RDW-CV 14.3 11.3 - 14.8 % 03/22/2024 6:22 AM T [facility] Platelet Count 217 150 - 420 x10E9/L 03/22/2024 6:22 AM T [facility] MPV 10.1 7.8 - 11.4 fL 03/22/2024 6:22 AM T [facility] Blood BLOOD SPECIMEN / Unknown Venipuncture / Unknown 03/22/2024 5:39 AM CDT 03/22/2024 6:12 AM CDT Mayela Tineo MD LAB - HEMATOLOGY ORD NELLY [address] [address], [place] [phone] * LACTIC ACID BLOOD (03/22/2024 5:39 AM CDT) Only the most recent of3 resultswithin the time period is included. Lactic Acid-Stat 1.8 <=2.0 mmol/L 03/22/2024 6:32 AM CDT [facility] Blood BLOOD SPECIMEN / Unknown Venipuncture / Unknown 03/22/2024 5:39 AM CDT 03/22/2024 6:07 AM CDT Loco Watt MD LAB - CHEMISTRY ORDE DINESH [address] [address], [place] [phone] * CT HEAD WO CONTRAST (03/21/2024 7:39 PM CDT) Anatomical Region Laterality Modality Head Computed Tomogra phy 03/21/2024 7:39 PM CDT Impressions 03/21/2024 7:50 PM CDT IMPRESSION: 1.No acute intracranial abnormality. 2.Chronic findings as described. > Interpreting Provider: Shahriar Molina MD, PhD on 03/21/2024 7:50 PM Narrative 03/21/2024 7:50 PM CDT EXAM: CT HEAD WO CONTRAST, DATE/TIME OF EXAM: 03/21/2024 7:39 PM, LOCATION: [facility] HISTORY: R41.82: Altered mental status, unspecified altered mental status type ADDITIONAL CLINICAL INFORMATION: Ordering Provider Reason For Exam: AMS. EXAMINATION: CT scan of the head without intravenous contrast TECHNIQUE: CT of the head was performed without intravenous contrast according to standard protocol. CT dose reduction technique was used, including Automated Exposure Control. COMPARISON: No prior similar studies are available for comparison. FINDINGS: Streak/beam hardening artifact from patient's dental amalgam partially limits assessment of the posterior fossa. Within this limitation, the following assessment is made: BRAIN PARENCHYMA: No acute hemorrhage or large vascular territory infarct. No mass effect. 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 Small chronic lacune of the left caudate head/gangliocapsular region. Scattered white matter hypodensities, which are nonspecific but likely represents the sequela of chronic microangiopathic change. Moderate generalized parenchymal volume loss with ex vacuo dilation of the ventricles. VENTRICLES/EXTRA-AXIAL SPACES: No evidence of hydrocephalus. No extra-axial collection. Basal cisterns are patent. EXTRACRANIAL STRUCTURES: No acute or suspicious osseous abnormality. Normal soft tissues. Mild mucosal thickening of the ethmoid air cells and mild polypoid mucosal thickening of the maxillary sinus floors. Left middle and inferior nasal turbinate hypertrophy with trace opacification of the left nasal cavity. Right nasal cavity is clear. Mild rightward deviated nasal septum with a small right-sided spur. Trace left mastoid tip effusion. Right mastoid air cells are clear. Bilateral lens replacement; otherwise, orbits are unremarkable. [id number] calcific atherosclerosis of the carotid siphons. Procedure Note Shahriar Molina MD - 03/21/2024 EXAM: CT HEAD WO CONTRAST, DATE/TIME OF EXAM: 03/21/2024 7:39 PM, LOCATION: [facility] HISTORY: R41.82: Altered mental status, unspecified altered mentalstatus type ADDITIONAL CLINICAL INFORMATION: Ordering Provider Reason For Exam: AMS. EXAMINATION: CT scan of the head without intravenous contrast TECHNIQUE: CT of the head was performed without intravenous contrast according to standard protocol. CT dose reduction technique was used, including Automated Exposure Control. COMPARISON: No prior similar studies are available for comparison. FINDINGS: Streak/beam hardening artifact from patient's dental amalgam partially limits assessment of the posterior fossa. Within this limitation, the following assessment is made: BRAIN PARENCHYMA: No acute hemorrhage or large vascular territoryinfarct. No mass effect. Small areas of encephalomalacia of the left posterior frontal lobe involving the left superior and middle frontal gyri and left precentral gyrus and the left parietal lobe, which is consistent with a priorchronic infarct corresponding to the left middle cerebral artery (MCA)territory. Small chronic lacune of the left caudate head/gangliocapsular region. Scattered white matter hypodensities, which are nonspecific but likely represents the sequela of chronic microangiopathic change. Moderate generalized parenchymal volume loss with ex vacuo dilation of the ventricles. VENTRICLES/EXTRA-AXIAL SPACES: No evidence of hydrocephalus. Noextra-axial collection. Basal cisterns are patent. EXTRACRANIAL STRUCTURES: No acute or suspicious osseous abnormality.Normal soft tissues. Mild mucosal thickening of the ethmoid air cells and mild polypoid mucosal thickening of the maxillary sinus floors. Left middleand inferior nasal turbinate hypertrophy with trace opacification of theleft nasal cavity. Right nasal cavity is clear. Mild rightward deviated nasal septum with a small right-sided spur. Trace left mastoid tip effusion. Right mastoid air cells are clear. Bilateral lens replacement;otherwise, orbits are unremarkable. Dulj-vl-[id number] calcific atherosclerosis ofthe carotid siphons. IMPRESSION: 1.No acute intracranial abnormality. 2.Chronic findings as described. > Interpreting Provider: Shahriar Molina MD, PhD on 03/21/2024 7:[address] Watt MD CT ORDERABLES * SARS-COV-2 (COVID-19)+INFLU A+B PCR RAPID (03/21/2024 6:52 PM CDT) COVID-19 PCR Not detected Not detected 03/21/20 7:49 PM CDT [facility] Influenza A Rapid YOLIE Not Detected Not Detected 03/21/2024 7:49 PM CDT [facility] Influenza B YOLIE Rapid Not Detected Not Detected 03/21/2024 7:49 PM CDT [facility] Microbiology SPECIMEN FROM NASOPHARYNGEAL STRUCTURE / Unknown Collection / Unknown 03/21/2024 6:52 PM CDT 03/21/2024 7:11 PM CDT Narrative [facility] - 03/21/2024 7:49 PM CDT Influenza assay performed by Nucleic Acid Amplification. Results do not exclude the possibility of a mixed viral infection. NOTE: Detecting and identifying specific viral nucleic acids from individuals exhibiting signs and symptoms of respiratory infection aids in the diagnosis of respiratory infection, if used in conjunction with other clinical and laboratory findings. The results of this test should not be used as the sole basis for diagnosis, treatment, or patient management decisions. This nucleic acid amplification assay performance was validated by [facility]. This test has been authorized by the Food and Drug administration (FDA)under an Emergency Use Authorization (EUA). This test has been validated in accordance with the FDA's guidance document Policy for Diagnostic Testing in Laboratories Certified to perform High Complexity Testing under CLIA prior to Emergency Use Authorization for Coronavirus Disease-2019 during the Public Health Emergency issued on January 30, 2020. FDA independent review of this validation is pending. This test is only authorized for the duration of time the declaration that circumstances exist justifying the authorization of emergency use of in vitro diagnostic tests for detection of SARS-CoV-2 virus and/or diagnosis of COVID-19 infection under section 564(b)(1) of the Act, 21 U.S.C 360bbb-3 (b)(1), unless the authorization is terminated or revoked sooner. Fact Sheets for this EUA assay are available upon request. Loco Watt MD LAB - MICROBIOLOGY O TOM [facility] [address] [place] [address], [facility] [phone] * CULTURE BLOOD (03/21/2024 6:48 PM CDT) Only the most recent of2 resultswithin the time period is included. Pathologist [facility] Culture No growth day 5 SANDOR 03/26/2024 10:32 PM CDT [facility] Blood PERIPHERAL BLOOD / Unknown Venipuncture / Unknown 03/21/2024 6:48 PM CDT 03/21/2024 6:55 PM CDT Loco Watt MD LAB - MICROBIOLOGY O TOM Performing Organization Address [facility]/ZIP Co de Phone Number [facility] [address] [place] [address], [facility] [phone] * EKG 12-LEAD (03/21/2024 6:46 PM CDT) Pathologist [facility] Ventricular Rate 64 BPM [facility] MUSE Atrial Rate 64 BPM [facility] MUSE P-R Interval 170 ms [facility] MUSE QRS Duration ms 128 ms [facility] MUSE Q-T Interval ms 362 ms [facility] MUSE QTC Calculation (Bezet) 373 ms [facility] MUSE Calculated P Hallett 63 degrees SL MUSE Calculated R Hallett -42 degrees [facility] MUSE Calculated T Hallett 77 degrees [facility] MUSE Interpretation EKG NORMAL SINUS RHYTHM LEFT AXIS DEVIATION NON-SPECIFIC INTRA-VENTRICU LAR CONDUCTION BLOCK NONSPECIFIC T WAVE ABNORMALITY ABNORMAL ECG NO PREVIOUS ECGS AVAILABLE Confirmed by FESTUS CARVER, LILIYALYNN ([id number]) on 03/28/2024 9:32:27 PM [facility] MUSE 03/21/2024 6:46 PM CDT 03/28/2024 9:32 PM CDT Loco Watt MD ECG ORDERABLES Performing Organization Address [facility]/ZIP Co de Phone Number [facility] MUSE * TROPONIN-I HIGH SENSITIVE REFLEX 1HOUR (03/21/2024 6:46 PM CDT) Troponin I High Sensitive 16 <=35 ng/L 03/21/2024 7:41 PM [facility] Delta Troponin I HS 03/21/2024 7:41 PM [facility] Comment:Delta value intentio katlyn not calculated. Baseline to 1 hour specimen collection interval exceeded. Blood BLOOD SPECIMEN / Unknown Venipuncture / Unknown 03/21/2024 6:46 PM CDT 03/21/2024 6:56 PM CDT Loco Watt MD LAB - CHEMISTRY MARK MONTIEL [facility] [address] [place] [phone], [facility] [phone] * (ABNORMAL) BLOOD GASES ESTEFANY + COOX PANEL (03/21/2024 6:46 PM CDT) pH Venous 7.27(L) 7.32 - 7.42 pH 03/21/2024 7:00 PM [facility] pO2 Venous 29(L) 35 - 40 mmHg 03/21/2024 7:00 PM [facility] pCO2 Venous 41 40 - 50 mmHg 03/21/2024 7:00 PM [facility] HCO3 Venous 18.8(L) 20 - 30 mmol/L 03/21/2024 7:00 PM [facility] Base Excess Venous -7.6(L) -2.0 - 2.0 mmol/L 03/21/2024 7:00 PM [facility] Oxyhemoglobin Venous 48.7 % 03/03 7:00 PM [facility] Deoxyhemoglobin (HHB) Venous % 48.8 % 03/21/2024 7:00 PM [facility] Methemoglobin 0.8 0.0 - 2.0 % 03/21/2024 7:00 PM [facility] Carboxyhemoglobin 1.7 0.0 - 2.0 % 2023 7:00 PM [facility] O2 Content Venous 7.2 Interpret within clinical context ml/dL 03/21/2024 7:00 PM [facility] Hemoglobin by COOX 10.5(L) 12.0 - 17.6 g/dL 03/21/2024 7:00 PM CDT [facility] O2 Saturation Venous 50(L) >=70 % 03/03 7:00 PM CDT [facility] FI O2 Mixed Venous 28.0 % 2023 7:00 PM CDT [facility] Blood BLOOD SPECIMEN / Unknown Venipuncture / Unknown 03/21/2024 6:46 PM CDT 03/21/2024 6:54 PM CDT Narrative [facility] - 03/21/2024 7:00 PM CDT Carboxyhemoglobin Normal Concentration: Non-smokers: 0-2%; Smokers: 0-9%; Toxic: >20% Loco Watt MD LAB - BLOOD GASES OR DERABLES [facility] [address] [place] [phone], [facility] [phone] * XR CHEST 1VW PORTABLE (03/21/2024 6:45 PM CDT) Anatomical Region Laterality Modality Chest Radiographic Salome ging 03/21/2024 7:15 PM CDT Narrative 03/21/2024 7:16 PM CDT EXAMINATION: XR CHEST 1VW PORTABLE HISTORY: R41.82: Altered mental status, unspecified altered mental status type COMPARISON: No prior study is available for comparison. FINDINGS/IMPRESSION: Lines: *Median sternotomy changes are noted. 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 Minimal bibasilar, left greater than right, airspace opacities could represent congestion versus atelectasis/airspace disease. No pleural effusion is seen. No pneumothorax is identified. The heart is enlarged for this AP view. The superior mediastinal contours are within normal limits. No acute osseous abnormality is identified. No free air is seen under the diaphragm. > Interpreting Provider: Guru Chavarria MD on 03/21/2024 7:16 PM Procedure Note Guru Chavarria MD - 03/21/2024 EXAMINATION: XR CHEST 1VW PORTABLE HISTORY: R41.82: Altered mental status, unspecified altered mentalstatus type COMPARISON: No prior study is available for comparison. FINDINGS/IMPRESSION: Lines: *Median sternotomy changes are noted. 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 Minimal bibasilar, left greater than right, airspace opacities could represent congestion versus atelectasis/airspace disease. No pleural effusion is seen. No pneumothorax is identified. The heart is enlargedfor this AP view. The superior mediastinal contours are within normallimits. No acute osseous abnormality is identified. No free air is seen underthe diaphragm. > Interpreting Provider: Guru Chavarria MD on 03/21/2024 7:16 PM Loco Watt MD DIAGNOSTIC IMAGING O RDERABLES * (ABNORMAL) URINE MICROSCOPIC ONLY REFLEX TO CULTURE (03/21/2024 6:39 PM CDT) Reflex Status Culture to follow 03/21/2024 7:01 PM T [facility] RBC UA 51-100(A) None Seen, 0-2, 3-5 /HPF 03/21/2024 7:01 PM T [facility] WBC UA 51-100(A) None Seen, 0-5 /HPF 03/21/2024 7:01 PM [facility] Bacteria UA Trace(A) None /HPF 03/21/2024 7:01 PM [facility] Yeast Budding UA Moderate(A) None /HPF 03/21/2024 7:01 PM [facility] Yeast Hyphenation UA Occasional( A) None /HPF 03/21/2024 7:01 PM [facility] Squamous Epithelial Cells UA None Seen None Seen, 0-2, 3-5 /HPF 03/21/2024 7:01 PM [facility] Urine URINE SPECIMEN OBTAINED VIA [facility]HE[facility] / Unknown Collection / Unknown 03/21/2024 6:39 PM CDT 03/21/2024 6:45 PM CDT Narrative [facility] - 03/21/2024 7:01 PM CDT Loco Watt MD LAB - URINALYSIS ORD ERABLES [facility] [address] [place] [address], [facility] [phone] * (ABNORMAL) URINALYSIS REFLEX MICROSCOPIC REFLEX CULTURE (03/21/2024 6:39 PM CDT) Color UA Josseline(A) Straw, Yellow 03/21/2024 7:00 PM [facility] Clarity UA Clear Clear 03/21/2024 7:00 PM [facility] Specific Isola UA 1.012 1.005 - 1.030 03/21/2024 7:00 PM [facility] pH UA 5.0 5.0 - 8.0 pH 03/21/2024 7:00 PM [facility] Protein UA 1+(A) Negative 03/21/2024 7:00 PM [facility] Glucose UA 1+(A) Negative 03/21/2024 7:00 PM [facility] Ketone UA Negative Negative 03/21/2024 7:00 PM [facility] Bilirubin UA Negative Negative 03/21/2024 7:00 PM [facility] Blood UA 1+(A) Negative 03/21/2024 7:00 PM [facility] Nitrite UA Positive(A) Negative 03/21/2024 7:00 PM [facility] Leukocyte Esterase 1+(A) Negative 03/21/2024 7:00 PM [facility] Urobilinogen UA 2.0(A) Negative mg/dL 03/21/2024 7:00 PM [facility] Comment UA Microscopic to follow. 03/21/2024 7:00 PM [facility] Urine URINE SPECIMEN OBTAINED VIA [facility] / Unknown Collection / Unknown 03/21/2024 6:39 PM CDT 03/21/2024 6:45 PM [facility] - 03/21/2024 7:00 PM CDT Loco Watt MD LAB - URINALYSIS ORD ERABLES [facility] [address] [place] [address] [phone] * LEGIONELLA ANTIGEN URINE (03/21/2024 6:39 PM CDT) [facility] Legionella Antigen Urine Negative Negative 03/22/2024 7:28 AM CDT [facility] Urine URINE / Unknown Collection / Unknown 03/21/2024 6:39 PM CDT 03/21/2024 6:45 PM CDT Narrative [facility] - 03/22/2024 7:28 AM CDT This assay detects Legionella pneumophila serogroup one (1) antigen. A negative test result does not rule out the possibility of Legionella infection due to other serogroups or species of Legionella. A positive result may indicate a recent or remote infection with serogroup 1. Loco Watt MD LAB - MICROBIOLOGY O TOM Performing Organization Address [facility]/ZIP Co de Phone Number [facility] [address] [place] [address], [facility] [phone] * (ABNORMAL) CULTURE URINE (03/21/2024 6:39 PM CDT) [facility] Culture Urine 50,000-10 0,000 CFU/mL Yeast(A) SANDOR 03/23/2024 8:13 AM CDT [facility] Urine URINE SPECIMEN OBTAINED VIA [facility] / Unknown Collection / Unknown 03/21/2024 6:39 PM CDT 03/21/2024 7:01 PM CDT Loco Watt MD LAB - MICROBIOLOGY O TOM Performing Organization Address City/[facility]/ZIP Co de Phone Number [facility] [address] [place] [address], [facility] [phone] * URINE DRUG SCREEN IMMUNOASSAY (03/21/2024 6:39 PM CDT) [facility] Amphetamines Screen Urine Negative Negative: < 1000 ng/mL 03/21/2024 9:30 PM CDT [facility] Barbiturates Screen Urine Negative Negative: < 200 ng/mL 03/21/2024 9:30 PM CDT [facility] Benzodiazepine Screen Urine Negative Negative: < 200 ng/mL 03/21/2024 9:30 PM CDT [facility] Opiates Urine Negative Negative: < 300 ng/mL 03/21/2024 9:30 PM CDT [facility] Cocaine Metabolites Urine Negative Negative: < 300 ng/mL 03/21/2024 9:30 PM CDT [facility] Phencyclidine Screen Urine Negative Negative: < 25 ng/ml 03/21/2024 9:30 PM CDT [facility] Cannabinoids Screen Urine Negative Negative: <50 ng/mL 03/21/2024 9:30 PM CDT [facility] Methadone Screen Urine Negative Negative: < 300 ng/mL 03/21/2024 9:30 PM T [facility] Fentanyl Screen Urine Negative Negative: <1.5 ng/mL 03/21/2024 9:30 PM CDT [facility] Urine URINE / Unknown 03/21/2024 6 :39 PM CDT 03/21/2024 9:17 PM CDT [facility] - 03/21/2024 9:30 PM CDT The Urine Toxicology Screening Panel does not screen for Propoxyphene, Meprobamate, Carisoprodol, Trazodone, qatl-nlu-kulkdag medications and/or volatiles (Acetone, Isopropanol, Methanol or Ethylene Glycol). Ethanol, Salicylate, Acetaminophen, Tricyclic Antidepressants and several therapeutic drugs may be individually assayed in serum or plasma specimen. Toxicology testing by the [facility] is an aid to medical diagnosis and treatment of patients. No documented chain of custody was maintained. Results are intended to be used for clinical purposes only. Loco Watt MD LAB - URINE CHEMISTR Y ORDERABLES [facility] [address] [place] [phone], [facility] [phone] * TROPONIN-I HIGH SENSITIVE BASELINE + 1HR (03/21/2024 6:30 PM CDT) Troponin I High Sensitive 13 <=35 ng/L 03/21/2024 7:07 PM CDT [facility] Blood BLOOD SPECIMEN / Unknown Venipuncture / Unknown 03/21/2024 6:30 PM CDT 03/21/2024 6:33 PM CDT Loco Watt MD LAB - CHEMISTRY MARK MONTIEL [facility] [address] [place] [address], [place] [phone] * TYPE + SCREEN PANEL (03/21/2024 6:30 PM CDT) Antibody Screen POS 7:31 PM CDT [facility] ABO Rh A POS 03/21/2024 7:31 PM CDT [facility] Blood Bank BLOOD SPECIMEN / Unknown Venipuncture / Unknown 03/21/2024 6:30 PM CDT 03/21/2024 6:36 PM CDT Loco Watt MD LAB - BLOOD BANK ORD NELLY Performing Organization Address City/[facility]/ZIP Co de Phone Number [facility] [address] [place] [address], [place] [phone] * SULTANA DIRECT (03/21/2024 6:30 PM CDT) Direct Sultana (SOHAN) NEG 03/21/2024 7:56 PM CDT [facility] LAB Blood Bank BLOOD SPECIMEN / Unknown Venipuncture / Unknown 03/21/2024 6:30 PM CDT 03/21/2024 6:36 PM CDT Loco Watt MD LAB - BLOOD BANK ORD ERABLES [facility] [address] [place] [address], [place] [phone] * ANTIBODY IDENTIFICATION (03/21/2024 6:30 PM CDT) Antibody 1 POS, Anti-Shima 03/21/2024 9:42 PM CDT [facility] Blood Bank BLOOD SPECIMEN / Unknown Venipuncture / Unknown 03/21/2024 6:30 PM CDT 03/21/2024 6:36 PM CDT Loco Watt MD LAB - BLOOD BANK ORD ERABLES Performing Organization Address [facility]/ZIP Co de Phone Number [facility] [address] [place] [address], [facility] [phone] * (ABNORMAL) DIFFERENTIAL MANUAL (03/21/2024 6:30 PM CDT) Pathologist [facility] Neutrophil % 68 41 - 74 % 03/21/2024 7:07 PM CDT [facility] Lymphocyte % 18 17 - 47 % 03/21/2024 7:07 PM CDT [facility] Monocyte % 14(H) 3 - 11 % 03/21/2024 7:07 PM T [facility] Neutrophil Absolute 11.08(H) 1.60 - 7.50 x10E9/L 03/21/2024 7:07 PM T [facility] Lymphocyte Absolute 2.93 1.00 - 4.40 x10E9/L 03/21/2024 7:07 PM T [facility] Monocyte Absolute 2.28(H) 0.15 - 1.00 x10E9/L 03/21/2024 7:07 PM T [facility] RBC Morphology REVIEWED 03/21/2024 7:07 PM T [facility] Platelet Clumps PRESENT(A) (none) 03/21/2024 7:07 PM [facility] Blood BLOOD SPECIMEN / Unknown Venipuncture / Unknown 03/21/2024 6:30 PM CDT 03/21/2024 6:33 PM CDT Loco Watt MD LAB - HEMATOLOGY ORD ERABLES [facility] [address] [place] [phone], [facility] [phone] * (ABNORMAL) COMPREHENSIVE METABOLIC PANEL (03/21/2024 6:30 PM CDT) BUN 25 7 - 26 mg/dL 03/21/2024 7:04 PM [facility] Creatinine 1.94(H) 0.71 - 1.16 mg/dL 03/21/2024 7:04 PM [facility] Sodium 138 136 - 145 mmol/L 03/21/2024 7:04 PM [facility] Potassium 4.9(H) 3.5 - 4.5 mmol/L 03/21/2024 7:04 PM [facility] Chloride 112(H) 98 - 107 mmol/L 03/21/2024 7:04 PM [facility] CO2 16(L) 22 - 29 mmol/L 03/21/2024 7:04 PM [facility] Glucose 223(H) 70 - 115 mg/dL 03/21/2024 7:04 PM [facility] Calcium 10.1 8.4 - 10.2 mg/dL 03/21/2024 7:04 PM [facility] Protein Total 7.0 6.0 - 8.3 g/dL 03/21/2024 7:04 PM [facility] Albumin 2.8(L) 3.4 - 5.0 g/dL 03/21/2024 7:04 PM [facility] Bilirubin Total 0.8 0.2 - 1.2 mg/dL 03/21/2024 7:04 PM [facility] Alkaline Phosphatase 99 40 - 150 U/L 03/21/2024 7:04 PM [facility] ALT 10 5 - 55 U/L 03/21/2024 7:04 PM [facility] AST 9 5 - 34 U/L 03/21/2024 7:04 PM [facility] Anion Gap 10 6 - 16 03/21/2024 7:04 PM [facility] BUN/Creatinine Ratio 13 7 - 23 03/21/2024 7:04 PM [facility] Osmolality Calculated 297(H) 275 - 295 mOsm/kg 03/21/2024 7:04 PM [facility] Albumin/Globulin Ratio 0.7(L) 1.1 - 2.3 03/21/2024 7:04 PM [facility] eGFR by CKD-EPI 34(L) >=90 mL/min/1.7 3 m2 03/21/2024 7:04 PM CDT [facility] Blood BLOOD SPECIMEN / Unknown Venipuncture / Unknown 03/21/2024 6:30 PM CDT 03/21/2024 6:33 PM CDT Loco Watt MD LAB - CHEMISTRY MARK MONTIEL [facility] Organization Address City/State/ZIP Co de Phone Number [facility] [address] [place] [phone], [facility] [phone]
--- OUTSIDE RECORDS SUMMARY | 2025-02-12 05:27 | XMS_ITS | Clinical Summary ---
Author Organization [facility] Address [address] [place] [address] Care Team Providers Care Geometry Teacher Name Role Phone Unavailable Primary Care Provider Unavailabl e Source Comments [facility],non-owned Affiliates and Associated Physician Practices is amultiple site organization consisting of ambulatory clinics and hospital sitesin [place], [place], [place] and [place]. This disclosure is being madepursuant to the Care Everywhere program and may not contain all information available regarding this patient. Last updated 18.[employer] Allergies No known active allergies Medications * [...] and heating? Not hard at all 03/22/2024 [facility] [place] [facility] Occup[facility] ional Health - Occupational Stress [...] place to sleep or slept in a chcf (including now)? Yes 03/22/2024 Sex and Gender [...] Mass Index 27.82 03/22/2024 2:03 AM CDT Plan of Treatment Health Maintenance Due Date Last Done Comments DTAP/TDAP/TD VACCINES (1 - Tdap) 1959 PNEUMOCOCCAL VACCINE 50+ (1 of 2 - PCV) 1958 ZOSTER VACCINE (1 of 2) 1989 Respiratory Syncytial Virus (RSV) Vaccine Pt: or over 60 yrs (1 - 1-dose 75+ series) 2014 DIABETES RETINOPATHY SCREENING 03/21/2024 DIABETES-FOOT EXAM WITH MONOFILAMENT 03/21/2024 DIABETES-HGB A1C 03/21/2024 12/29/2022 COVID-19 VACCINE (3 - 2023-2 5 season) 2024 04/10/2021, 03/20/2021 INFLUENZA VACCINE (#1) 2024 DEPRESSION SCREENING 12/02/2024 MEDICARE AWV CALENDAR YEAR 2024 HEPATITIS B VACCINE Aged Out No longe r eligible based on patient's age to complete this topic HIB VACCINE Aged Out No longer eligi ble based on patient's age to complete this topic HPV VACCINE Aged Out No longer eligi ble based on patient's age to complete this topic MENINGOCOCCAL (Group B) VACCINE SHARED DECISION-MAKING Aged Out No longer eligible based on patient's age to complete this topic MENINGOCOCCAL GROUPS A/C/Y/W VACCINE Aged Out No longer eligible b ased on patient's age to complete this topic Advance Directives * Full Code (Latest Code Status on File) Date Activated Date Inactivated Comments 03/21/2024 8:50 PM 03/21/2024 9:23 PM
--- OUTSIDE RECORDS SUMMARY | 2025-02-12 05:27 | XMS_ITS | Referral Summary ---
Author Organization [facility] Address [address] [place] [id number] Care Team Providers Care Assistant Track Coach Name Role Phone Richard Cartagena MD Primary Care Provider [phone] Allergies Active Allergy Reactions Criticality Noted Date Comments Codeine Hives Medium Doxazosin Unknown,Hives Medium Egg Hives Medium Erythromycin Nausea only Low Stomach upset Influenza Virus Vaccines Penicillins Hives Medium Medications atorvastatin (LIPITOR) 80 mg tablet Take 1 tablet (80 mg total) by mouth nightly Active tamsulosin (FLOMAX) 0.4 mg extended release capsule Take 1 capsule (0.4 mg total) by mouth nightly Active insulin glargine (LANTUS) 100 unit/mL injection Inject 30 Units under the skin nightly Active insulin aspart U-100 (NovoLOG) 100 unit/mL insulin pen Inject 6 Units under the skin 3 (three) times a day with meals Active cholecalciferol (VITAMIN D-3) 5,000 unit capsule Take 1 capsule (5,000 Units total) by mouth every morning Active acetaminophen (TYLENOL) 325 mg tablet Take 2 tablets (650 mg total) by mouth every 4 (four) hours as needed for pain or fever 4 Active clopidogreL (PLAVIX) 75 mg tablet Take 1 tablet (75 mg total) by mouth daily 4 Active levothyroxine (SYNTHROID) 75 mcg tablet Take 1 tablet (75 mcg total) by mouth associate account director before breakfast 4 Active meclizine (ANTIVERT) 25 mg tablet Take 1 tablet (25 mg total) by mouth 3 (three) times a day as needed 4 Active nitroglycerin (Nitrostat) 0.[address] 1 tablet (0.4 mg total) under the tongue every 5 (five) minutes as needed for chest pain 4 Active traMADoL (ULTRAM) 50 mg tablet Take 1 tablet (50 mg total) by mouth every 6 (six) hours as needed for pain 4 Active aspirin 81 mg enteric coated tablet Take 1 tablet (81 mg total) by mouth daily Active Active Problems Problem Noted Date Diagnosed Date Coronary artery disease of n ative artery of [place] heart with stable angina pectoris 12/29/2022 History of CVA (cerebrovascular accident) 2022 Stage 3b chronic kidney disease 12/29/2022 Type 2 diabetes mellitus wit hout complication, with long-term current use of insulin 12/29/2022 Neuropathy 12/29/2022 Benign prostatic hyperplasia without lower urinary tract symptoms 12/29/2022 History of colon cancer 12/29/2022 Primary hypertension 12/29/2022 Dyslipidemia 12/29/2022 Syncope 12/29/2022 Chronic diastolic heart failure 12/29/2022 Macrocytic anemia 12/29/2022 Basal cell carcinoma of skin of right eyelid, including canthus 06/16/2018 Overview (06/16/2018): Added automatically from request for surgery [id number] Chest pain Social History Tobacco Use Types Packs/Day Years Used Date Smoking Tobacco: Former Cigarettes Q uit: 06/30/1993 Smokeless Tobacco: Never Alcohol Use Standard Drinks/Week Comments Yes 0 (1 standard drink = 0.6 oz pur e alcohol) rare Personal Safety Answer Date Recorded Have you ever been in or are you currently in a harmful physical or emotional relationship or is someone making you feel afraid or unsafe? Denies 08/09/2024 Sex and Gender Information Value Date Recorded Sex Assigned at Not on file Legal Sex Male 7:32 AM BULK PICKER Gender Identity Not on file Sexual Orientation Not on file Last Filed Vital Signs Vital Sign Reading Time Taken Comments Blood Pressure 106/36 08/09/2024 1:00 PM CDT Pulse 52 08/09/2024 1:00 PM CDT Temperature 36.4 C (97.6 F) 08/09/2024 9:48 AM CDT Respiratory Rate 18 08/09/2024 12:47 PM CDT Oxygen Saturation 99% 08/09/2024 1:00 PM CDT Inhaled Oxygen Concentration - - Weight 97.3 kg (214 lb 6.4 oz) 12/28/2022 10:10 PM BULK PICKER Height 176.5 cm (5' 9.49 ) 12/28/2022 10:[address] Body Mass Index 31.22 12/28/2022 10:10 PM BULK PICKER Plan of Treatment Not on file Procedures Procedure Name Priority Date/Time Associated Diagnosis Comments EGFR STAT 08/09/2024 11:05 AM CDT HEMOGLOBIN A1C Routine 12/29/2022 4:32 AM BULK PICKER LIPID PANEL Routine 12/29/2022 4:32 AM BULK PICKER from Last 3 Months or Most Recently Relevant to Health Maintenance Results * (ABNORMAL) eGFR (08/09/2024 11:05 AM CDT) eGFR 59(L) >=60 mL/min/1. 73 m2 Comment: Interpretive Data Reference Interval Normal >/= 90 mL/min/1.73m2 Mildly decreased* 60 - 89 mL/min/1.73m2 Mildly to moderately decreased 45 - 59 mL/min/1.73m2 Moderately to severely decreased 30 - 44 mL/min/1.73m2 Severely decreased 15 - 29 mL/min/1.73m2 Kidney Failure < 15 mL/min/1.73m2 *Relative to young adult level Estimated glomerular filtration rate is determined by the 2020 CKD-EPI equation recommended by the National Kidney Foundation (A Unifying Approach to GFR Estimation: Recommendations of the NKF-ASK Task Force on Reassessing the Inclusion of Race in Diagnosing Kidney Disease, JASN 2020). The CKD-EPI equation should not be used for patients with unstable renal function and has not been validated in children and those over 70. Current interpretive data was last reviewed 2021. Blood 08/09/2024 11:0 5 AM CDT 08/09/2024 11:08 AM CDT Alvarado Herzog MD LAB BLOOD ORDERABLE S Final Result Performing Organization Address City/State/[facility] Co de Phone Number MAHESH [phone] [facility] Department [place] [address] * (ABNORMAL) Hemoglobin A1c (12/29/2022 4:32 AM BULK PICKER) Hgb A1C 7.5(H) 4.0 - 5.6 % MAHESH Estimated Average Glucose 169 mg/dL MAHESH MAGANA Comment: The ADA recommends reporting an estimated Average Glucose (eAG) with all Hemoglobin A1c results using the equation derived from a study of 507 normal and diabetic adults. Minority populations were underrepresented and children were not included. (Diabetes Care 31:4123-7780, 2008). The eAG is not equivalent to a fasting glucose. Blood 12/29/2022 4:32 AM BULK PICKER 12/29/2022 8:23 PM BULK PICKER Todd Briceno MD LAB BLOOD ORDERABLES Final Result Performing Organization Address City/[facility] Co de Phone Number MAHESH [phone] [place] [address] * (ABNORMAL) Lipid panel (12/29/2022 4:32 AM BULK PICKER) Pathologist [facility] Cholesterol 194 30 - 199 mg/dL MAHESH Comment: Interpretive Data Ages < or = 19 years Acceptable: <170 mg/dL Borderline high: 170-199 mg/dL High: >or= 200 mg/dL Ages > or = 20 years Desirable: <200 mg/dL Borderline high: 200-239 mg/dL High: >or= 240 mg/dL Literature References: 1. Expert Panel on Integrated Guidelines for Cardiovascular Health and Risk Reduction in Children and Adolescents. Pediatrics 2011;128:S213 2. NCEP Expert Panel. Circulation 2004;110:227 Current Interpretive Data was last revised on 2018. Triglycerides 374(H) <=149 mg/dL MAHESH MAGANA Comment: Interpretive Data Ages < or = 9 years Acceptable: <75 mg/dL Borderline high: 75-99 mg/dL High: >or= 100 mg/dL Ages 10 to 20 years Acceptable: <90 mg/dL Borderline high: 90-129 mg/dL High: >or= 130 mg/dL Ages > or = 20 years Desirable: <150 mg/dL Borderline high: 150-199 mg/dL High: 200-499 mg/dL Very high: >or= 499 mg/dL Literature References: 1. Expert Panel on Integrated Guidelines for Cardiovascular Health and Risk Reduction in Children and Adolescents. Pediatrics 2011;128:S213 2. NCEP Expert Panel. Circulation 2004;110:227 Current Interpretive Data was last revised on 2018. HDL 33(L) >=40 mg/dL MAHESH MAGANA Comment: Interpretive Data Ages < or = 19 years Acceptable: >45 mg/dL Borderline low: 40-45 mg/dL Low: <40 mg/dL Ages > or = 20 years Desirable: >or= 60 mg/dL Low: <40 mg/dL Literature References: 1. Expert Panel on Integrated Guidelines for Cardiovascular Health and Risk Reduction in Children and Adolescents. Pediatrics 2011;128:S213 2. NCEP Expert Panel. Circulation 2004;110:227 Current Interpretive Data was last revised on 2018. LDL, calculated 86 <=129 mg/dL MAHESH MAGANA Comment: Interpretive Data Ages < or = 19 years Acceptable: <110 mg/dL Borderline high: 110-129 mg/dL High: >or= 130 mg/dL Ages > or = 20 years Optimal: <100 mg/dL Near optimal: 100-129 mg/dL Borderline high: 130-159 mg/dL High: >160 mg/dL Literature References: 1. Expert Panel on Integrated Guidelines for Cardiovascular Health and Risk Reduction in Children and Adolescents. Pediatrics 2011;128:S213 2. NCEP Expert Panel. Circulation 2003;110:227 Current Interpretive Data was last revised on 2018. Non-HDL Cholesterol 161 mg/dL MAHESH MAGANA Comment: Interpretive Data Ages < or = 19 years Acceptable: <120 mg/dL Borderline high: 120-144 mg/dL High: >145 mg/dL Ages > or = 20 years When triglycerides are >200 mg/dL, Non-HDL cholesterol is a secondary target of therapy with treatment goals that are 30 mg/dL greater than the LDL cholesterol target. Literature References: 1. Expert Panel on Integrated Guidelines for Cardiovascular Health and Risk Reduction in Children and Adolescents. Pediatrics 2011;128:S213 2. NCEP Expert Panel. Circulation 2003;110:227 Current Interpretive Data was last revised on 2018. Chol/HDL ratio 6 MAHESH MAGANA Blood 12/29/2022 4:32 AM BULK PICKER 12/29/2022 8:23 PM BULK PICKER Todd Briceno MD LAB BLOOD ORDERABLES Final Result MAHESH MAGANA [id number] [place] [address] from Last 3 Months or Most Recently Relevant to Health Maintenance Insurance [facility] Noblivity Address: [address] [place] [address] MEDICARE SOLUTIONS MEDICARE [facility] MEDICARE [facility] Address: [address] [address] [place] [address] [facility] Advance Directives For more information, please contact: [phone] Documents on File Type Date Recorded Patient Career Resource Specialist Expl anation ADVANCE DIRECTIVE 08/10/2024 3:10 PM POLST - Phys Order for PT Preferences ADVANCE DIRECTIVE 08/10/2024 3:10 PM Power of Airframe Technical Officer-Medical * Full Code (Latest Code Status on File) Date Activated Date Inactivated Comments 12/28/2022 10:55 PM 12/31/2022 10:03 PM * Full Code Date Activated Date Inactivated Comments 12/28/2022 10:55 PM 12/28/2022 10:55 PM * Full Code Date Activated Date Inactivated Comments 12/28/2022 7:45 PM 12/28/2022 10:55 PM * Full Code Date Activated Date Inactivated Comments 06/16/2018 11:55 AM 06/16/2018 1:55 PM Care Teams Assistant Track Coach Relationship Specialty Start Date End Date Richard Cartagena MD [address] [place] [id number] PCP - General 02/23/13
--- OUTSIDE RECORDS SUMMARY | 2025-02-12 05:27 | XMS_ITS | Clinical Summary ---
Author Organization [facility] Address [facility] [place] [address] Care Team Providers Care Food Inspector Name Role Phone None, Provider MD Primary Care Provider Unavaila ble Allergies Active Allergy Reactions Criticality Noted Date Comments Codeine Hives,Nausea and Vomiting High 02/02/2004 Doxazosin GI Upset,Hives,Unknown High 08/05/2007 Egg Solids, Whole Hives Medium 12/18/2024 Eggs Hives High 12/19/2010 Erythromycin Unknown,Nausea Only High 01/24/2023 Stomach upset Influenza Vaccines Rash Low 02/02/2004 Lisinopril Cough 11/20/2011 Metformin Diarrhea 11/20/2011 Penicillins Hives High 02/02/2004 Shellfish Allergy Angioedema 12/29/2023 Strawberries Angioedema 12/29/2023 Medications aspirin EC (ASPIRIN 81) 81 MG tablet Take 1 tablet (81 mg total) by mouth daily. Active Cholecalciferol 50 MCG (1999 UT) Tab Take 50 mcg by mouth daily. Active losartan (COZAAR) 25 MG tablet Take 1 tablet (25 mg total) by mouth daily. Active Delano-3 Fatty Acids (FISH OIL) 1200 MG Cap Take 1 capsule by mouth daily. Active potassium chloride CR (KLOR-CON M) 20 MEQ tablet Take 1 tablet (20 mEq total) by mouth daily. Active ezetimibe (ZETIA) 10 MG tablet Take 1 tablet (10 mg total) by mouth daily. Active insulin glargine (LANTUS) 100 UNIT/ML injection (PEN) Inject 15 Units into the skin 2 (two) times a day. Active clopidogrel (PLAVIX) 75 MG tablet Take 1 tablet (75 mg total) by mouth daily. Active atorvastatin (LIPITOR) 80 MG tablet Take 1 tablet (80 mg total) by mouth nightly at bedtime. Active ferrous sulfate EC 325 (65 Fe) MG tablet Take 1 tablet by mouth daily with breakfast. Active finasteride (PROSCAR) 5 MG tablet Take 1 tablet (5 mg total) by mouth daily. Active tamsulosin (FLOMAX) 0.4 MG Cap Take 1 capsule (0.4 mg total) by mouth daily. Active levothyroxine (SYNTHROID) 75 MCG tablet Take 1 tablet (75 mcg total) by mouth every morning. Active meclizine (ANTIVERT) 25 MG tablet Take 1 tablet (25 mg total) by mouth 3 (three) times daily as needed for Dizziness. Active acetaminophen (TYLENOL) 325 MG tablet Take 2 tablets (650 mg total) by mouth every 4 (four) hours as needed. 03/26/2024 Active insulin lispro (HUMALOG/ADMELO G) 100 UNIT/ML injection (VIAL) SLIDING SCALE 09/25/2024 Active nitroglycerin (NITROSTAT) 0.[address] 1 tablet (0.4 mg total) under the tongue every 5 (five) minutes as needed. 04/21/2024 Active traMADol (ULTRAM) 50 MG tablet Take 1 tablet (50 mg total) by mouth every 6 (six) hours as needed. 07/14/2024 Active gabapentin (NEURONTIN) 600 MG tablet 11/12/2024 Active Active Problems Problem Noted Date Diagnosed Date Coronary artery disease invo lving [place] coronary artery of [place] heart without angina pectoris 12/15/2024 History of aortic valve repl acement with bioprosthetic valve 12/15/2024 Hx of CABG 12/15/2024 Primary hypertension 12/15/2024 Chronic heart failure with p reserved ejection fraction (CMS/HCC HHS/HCC) 12/15/2024 PAD (peripheral artery disease) 12/15/2024 History of left-sided carotid endarterectomy H/O insulin dependent diabetes mellitus 12/15/19 Mixed hyperlipidemia 12/15/2024 Red blood cell antibody positive 12/15/2024 Popliteal aneurysm 11/18/2024 Critical limb ischemia of left lower extremity 1 01/19/2024 Encounters Date Type Department Care Team Description 01/11/2025 Telephone [facility] [address] [place] [address] Leslie May MD Surgical Clearance 01/11/2025 Telephone [facility] [address] [place] [address] Yulissa Meek, CHEMICAL DEPENDENCY ATTENDANT Results 01/07/2025 9:50 AM STUDENT MINISTRY PASTOR - 01/07/2025 11:59 PM STUDENT MINISTRY PASTOR Hospital Encounter [facility] Nuclear Medicine [facility] [place] [address] Torin Orr MD Discharge Disposition: Home or Self Care (Routine Discharge) 01/07/2025 Travel 12/18/2024 8:00 AM STUDENT MINISTRY PASTOR Office Visit [facility] [phone] Torin Orr MD Consult (PRE-OP (LT FEMORAL BYPASS-TBD)) 12/18/2024 Travel 11/18/2024 9:00 AM STUDENT MINISTRY PASTOR Office Visit [facility], [address] [address] Leslie May MD Consult (Popliteal aneurysm ) 11/18/2024 Travel from Last 3 Months Family History Medical History Relation Comments Heart Disease Father Asthma Mother Heart Disease Mother Relation Status Comments Father Mother Social History Tobacco Use Types Packs/Day Years Used Date Smoking Tobacco: Former Cigarettes S tarted: 1951 Tobacco Cessation:Counseling Given: Not Answered Sex and Gender Information Value Date Recorded Sex Assigned at Male 12/28/2024 7:24 AM STUDENT MINISTRY PASTOR Legal Sex Male 2:41 PM CDT Gender Identity Not on file Sexual Orientation Not on file Last Filed Vital Signs Vital Sign Reading Time Taken Comments Blood Pressure 92/48 12/18/2024 8:07 AM STUDENT MINISTRY PASTOR Pulse 95 12/18/2024 8:07 AM STUDENT MINISTRY PASTOR Temperature 36.7 C (98 F) 11/18/2024 9:19 AM STUDENT MINISTRY PASTOR Respiratory Rate 18 11/18/2024 9:19 AM STUDENT MINISTRY PASTOR Oxygen Saturation 93% 12/18/2024 8:07 AM STUDENT MINISTRY PASTOR Inhaled Oxygen Concentration - - Weight 77.1 kg (170 lb) 12/18/2024 8:07 AM STUDENT MINISTRY PASTOR Height 176.5 cm (5' 9.5 ) 12/18/2024 8:07 AM STUDENT MINISTRY PASTOR Body Mass Index 24.74 12/18/2024 8:07 AM STUDENT MINISTRY PASTOR Plan of Treatment Upcoming Encounters Date Type Department Care Team (Late st Contact Info) Description 02/19/2025 9:45 AM CDT Office Visit [facility] [phone] Torin Orr MD [facility] [address] [place] [phone] Health Maintenance Due Date Last Done Comments ASCVD LDL 1940 Annual Medicare Wellness Visit 2004 RSV Immunization or 60+ Years (1 - 1-dose 75+ series) 2014 Pneumococcal Vaccine: 65+ Years (2 of 2 - PPSV23 or PCV20) 02/08/2016 12/14/2015 COVID-19 Vaccine (3 - 2023-2 5 season) 2024 04/10/2021, 03/20/2021 Influenza Adult (#1) 2024 12/02/2002 DTaP, Tdap and Td Vaccines ( 4 - Td or Tdap) 09/02/2025 09/02/2015, 09/01/2014, 12/02/2007 Zoster Vaccines Completed 2022, 12/12/2021, 07/05/2009 Meningococcal B Vaccine Aged Out No l onger eligible based on patient's age to complete this topic Meningococcal Vaccine Aged Out No katty tobi eligible based on patient's age to complete this topic RSV Immunizations Under 20 Months Aged Out No longer eligible b ased on patient's age to complete this topic Procedures Procedure Name Priority Date/Time Associated Diagnosis Comments NM PHARM NUC STRESS TEST 1DAY W TRACING Routine 01/07/2025 1:59 PM STUDENT MINISTRY PASTOR Coronary artery disease involving [place] coronary artery of [place] heart without angina pectoris History of aortic valve replacement with bioprosthetic valve Hx of CABG Chronic heart failure with preserved ejection fraction (CMS/HCC HHS/HCC) CARDIOLOGY STRESS TEST ONLY, EXERCISE Routine 01/07/2025 9:51 AM STUDENT MINISTRY PASTOR Coronary artery disease involving [place] coronary artery of [place] heart without angina pectoris History of aortic valve replacement with bioprosthetic valve Hx of CABG Chronic heart failure with preserved ejection fraction (CMS/HCC HHS/HCC) Mixed hyperlipidemia History of left-sided carotid endarterectomy PAD (peripheral artery disease) Primary hypertension ELECTROCARDIOGRAM (NON MIDMARK ACQUIRED) Routine 12/18/2024 8:23 AM STUDENT MINISTRY PASTOR Coronary artery disease involving [place] coronary artery of [place] heart without angina pectoris from Last 3 Months Results * NM PHARM NUC STRESS TEST 1 DAY W TRACING (01/07/2025 1:59 PM STUDENT MINISTRY PASTOR) Anatomical Region Laterality Modality Cardiac Nuclear Medicine 01/07/2025 10:5 5 AM STUDENT MINISTRY PASTOR Narrative 01/07/2025 3:29 PM STUDENT MINISTRY PASTOR Myocardial Perfusion Imaging Pat.Name: FOSTERCarolineMAURICIO Pat.ID: [id number] St.Date: 01/07/2025 Refer.MD: Torin Orr [id number] Exam Time: 10:55:00 AM Study Type:ANNIE AL HT MUSCLE IMAGE SPECT MULTI Height: 69 in Weight: 170 lb BSA: 1.93 m2 Age: 7 1940,84Y Sex: M Sonogrphr: NENITA Hathaway Pat. Stat.:Outpatient Reason for Study:Evaluation of known CAD, Congestive heart failure, Leg pain History / Clinical:Diabetes, Hypertension, Renal Insufficiency, PVD/PAD, Carotid Stenosis, Stroke/CVA/TIA, Hypothyroidism, Dyslipidemia Procedures: Nuclear Stress Test with Lexiscan Race: W Surgery: Nuclear Stress Test, Echocardiogram, Coronary Artery Bypass Graft ++++++++++++++++++++++++++++++++++++ SUMMARY: ++++++++++++++++++++++++++++++++++++ Stress conclusion: 1. Clinically negative. 2. Electrocardiographically negative stress test for ischemia. 3. Scintigraphic images to follow. Perfusion conclusion: 1. Good study quality. No motion correction was applied to images. No attenuation is noted. Prone imaging was not performed. 2. Moderately abnormal myocardial perfusion SPECT imaging. Images show a large area of irreversibility present in the apical wall. There is also a moderate area of irreversibility in the inferior wall. No prone images, cannot rule out diaphragmatic attenuation. 3. Normal wall motion with an ejection fraction of 50%. Dilated left ventricle. 4. Stress test with myocardial perfusion imaging shows overall intermediate risk for a cardiac event. ++++++++++++++++++++++++++++++++++++ FINDINGS: ++++++++++++++++++++++++++++++++++++ Protocol: Lexiscan 0.4mg was given as a rapid injection IV over a period of 10 seconds with the radiopharmaceutical injected at 20 seconds. The images were processed using the standard SPECT technique. A gated study was performed on the stress images. Impression: SPECT images demonstrate a large irreversible perfusion abnormality present in the apical region(s) of severe intensity. There is also a moderate irreversible perfusion defect present in the inferior region of moderate intensity. No prone images available, cannot rule out diaphragmatic attenuation. Heart Size: Dilated left ventricle. LV Wall Motion: The LVEF is calculated to be 50%. Gated SPECT images reveal normal wall motion. Transient Ischemic Dilatation: The TID is 0.84. There is no evidence of Transient Ischemic Dilatation. ++++++++++++++++++++++++++++++++++++ STRESS: ++++++++++++++++++++++++++++++++++++ Baseline Vital Signs: ECG: Normal sinus rhythm, Left bundle branch block, Occasional PVC's HR: 64 bmp Rest BP: 136/56 Regadenoson Peak Dose: 0.4 mg Stress Test Results: Max HR: 90 bmp Target HR: 135 bmp % Target: 67 % Max BP: 114/49 Max RPP: 67090 O2 sat: 100 % Symptoms and Complications: Terminated: Protocol completed Symptoms: None Stress ECG Interp: Normal sinus rhythm. Left bundle branch block <Electronic Signature> 01/07/2025 03:29 PM Enoc Montelongo M.D. Procedure Note Enoc Montelongo MD - 01/07/2025 Myocardial Perfusion Imaging Pat.Name: MAURICIO GARCES Pat.ID: [id number] .Date: 01/07/2025 Refer.MD: Torin Orr [id number] Exam Time: 10:55:00 AM Study Type:ANNIE NC HT MUSCLE IMAGE SPECT MULTI Height: 69 in Weight: 170 lb BSA: 1.93 m2 Age: 7 1940,84Y Sex: M Sonogrphr: NENITA Hathaway Pat. Stat.:Outpatient Reason for Study:Evaluation of known CAD, Congestive heart failure, Leg pain History / Clinical:Diabetes, Hypertension, Renal Insufficiency, PVD/PAD, Carotid Stenosis, Stroke/CVA/TIA, Hypothyroidism, Dyslipidemia Procedures: Nuclear Stress Test with Lexiscan Race: W Surgery: Nuclear Stress Test, Echocardiogram, Coronary Artery Bypass Graft ++++++++++++++++++++++++++++++++++++ SUMMARY: ++++++++++++++++++++++++++++++++++++ Stress conclusion: 1. Clinically negative. 2. Electrocardiographically negative stress test for ischemia. 3. Scintigraphic images to follow. Perfusion conclusion: 1. Good study quality. No motion correction was applied to images. No attenuation is noted. Prone imaging was not performed. 2. Moderately abnormal myocardial perfusion SPECT imaging. Images show a large area of irreversibility present in the apical wall. There is also a moderate area of irreversibility in the inferior wall. No prone images, cannot rule out diaphragmatic attenuation. 3. Normal wall motion with an ejection fraction of 50%. Dilated left ventricle. 4. Stress test with myocardial perfusion imaging shows overall intermediate risk for a cardiac event. ++++++++++++++++++++++++++++++++++++ FINDINGS: ++++++++++++++++++++++++++++++++++++ Protocol: Lexiscan 0.4mg was given as a rapid injection IV over a period of 10 seconds with the radiopharmaceutical injected at 20 seconds. The images were processed using the standard SPECT technique. A gated study was performed on the stress images. Impression: SPECT images demonstrate a large irreversible perfusion abnormality present in the apical region(s) of severe intensity. There is also a moderate irreversible perfusion defect present in the inferior region of moderate intensity. No prone images available, cannot rule out diaphragmatic attenuation. Heart Size: Dilated left ventricle. LV Wall Motion: The LVEF is calculated to be 50%. Gated SPECT images reveal normal wall motion. Transient Ischemic Dilatation: The TID is 0.84. There is no evidence of Transient Ischemic Dilatation. ++++++++++++++++++++++++++++++++++++ STRESS: ++++++++++++++++++++++++++++++++++++ Baseline Vital Signs: ECG: Normal sinus rhythm, Left bundle branch block, Occasional PVC's HR: 64 bmp Rest BP: 136/56 Regadenoson Peak Dose: 0.4 mg Stress Test Results: Max HR: 90 bmp Target HR: 135 bmp % Target: 67 % Max BP: 114/49 Max RPP: 64836 O2 sat: 100 % Symptoms and Complications: Terminated: Protocol completed Symptoms: None Stress ECG Interp: Normal sinus rhythm. Left bundle branch block <Electronic Signature> 01/07/2025 03:29 PM Enoc Montelongo M.D. Torin Orr MD [facility] Final Result * ELECTROCARDIOGRAM (12/18/2024 8:23 AM STUDENT MINISTRY PASTOR) 12/18/2024 8:23 AM [facility] - 12/20/2024 7:[address] [address] Test Date: 2024-12-18 Pat Name: MAURICIO GARCES Department: 177 Room: Gender: Male [place] [employer] Group Leader: ag : 1940 Requested By: TORIN ORR Order Number: [id number] Reading MD: Torin Orr Measurements Intervals [place] Rate: 82 P: 66 KS: 169 QRS: -40 QRSD: 136 T: 49 QT: 387 QTc: 453 Interpretive Statements SINUS RHYTHM WITH OCCASIONAL VENTRICULAR PREMATURE COMPLEXES LEFT AXIS DEVIATION INTRAVENTRICULAR CONDUCTION DELAY POSSIBLE ANTERIOR MYOCARDIAL INFARCTION, OF INDETERMINATE AGE ENT MINISTRY PASTOR Procedure Note Torin Orr MD - 12/20/[address] [address] Test Date: 2024-12-18 Pat Name: MAURICIO GARCES Department: 177 Room: Gender: Male [employer] [place] [employer] Group Leader: : 1940 Requested By: TORIN ORR Order Number: [id number] Reading MD: Torin Orr Measurements Intervals [place] Rate: 82 P: 66 KS: 169 QRS: -40 QRSD: 136 T: 49 QT: 387 QTc: 453 Interpretive Statements SINUS RHYTHM WITH OCCASIONAL VENTRICULAR PREMATURE COMPLEXES LEFT AXIS DEVIATION INTRAVENTRICULAR CONDUCTION DELAY POSSIBLE ANTERIOR MYOCARDIAL INFARCTION, OF INDETERMINATE AGE ENT MINISTRY PASTOR Torin Orr MD PROCEDURES-ORDERABLE NO CHARG E Final Result [facility] from Last 3 Months Insurance [employer] MEDICARE Care Teams Food Inspector Relationship Specialty Start Date End Date None, Provider, MD PCP - General UNKNOWN PHYSICIAN SPECIALTY 11/18/24
--- OUTSIDE RECORDS SUMMARY | 2025-02-12 05:27 | XMS_ITS | Clinical Summary ---
Author Organization [facility] Address [address] [place] [phone] Care Team Providers Care Solar Photovoltaic Electrician Name Role Phone Richard Cartagena MD Primary Care Provider [phone] Allergies Active Allergy Reactions Criticality Noted Date [...] 1 tablet (75 mcg total) by mouth early childhood education coordinator before breakfast 4 Active meclizine (ANTIVERT) 25 [...] artery disease of n ative artery of [place] heart with stable angina pectoris 12/29/2022 History [...] (06/16/2018): Added automatically from request for surgery [id number] Chest pain Surgical History Surgery Date Site/Laterality Comments CARDIAC CATHETERIZATION 05/20/2010 Cath (Followup catheterization demonstrating aortic stenosis valve area 1.0, occlusion of the LAD and right coronary, BIOPROSTHETIC AORTIC VALVE REPLACEMENT 07/04/2010 Redo bypass grafting saphenous vein to OM mild bioprosthetic aVR 23 mm pericardial valve COLON SURGERY Abdominal Perineal Resection with a permanent colostomy COLONOSCOPY 12/02/2013 - 12/01/2014 CATARACT EXTRACTION Bilateral EYE SURGERY 07/16/2018 Left BCC LLL/S/P MOHS resection / S/P Right lower eyelid reconstruction with flap. Medical History Medical History Date Comments Malignant neoplasm of colon (HCC) Cancer, colon Hypertension Hypertension Cerebrovascular accident (CVA) (HCC) 2001 Stroke Type 2 diabetes mellitus (HCC) Parastomal hernia Diabetic neuropathy (HCC) Hyperlipidemia Enlarged prostate with lower urinary tract sympt oms (LUTS) Chronic kidney disease, stage 3 (moderate) CHF (congestive heart failure) (HCC) Coronary artery disease Family History Medical History Relation Name Comments Heart attack Father 2 Myocardial Infa rction; Cause of : Myocardial Infarction Heart attack Mother 2 Myocardial Infa rction; Cause of : Myocardial Infarction Relation Name Status Comments Father 1 Father 2 Mother 1 Mother 2 Social History Tobacco Use Types Packs/Day Years [...] on file Legal Sex Male 7:32 AM EXERCISE INSTRUCTOR Gender Identity Not on file Sexual Orientation Not on file Obstetrics History Last Filed Vital Signs Vital Sign Reading Time Taken Comments Blood Pressure 106/36 08/09/2024 1:00 PM CDT Pulse 52 08/09/2024 1:00 PM CDT Temperature 36.4 C (97.6 F) 08/09/2024 9:48 AM CDT Respiratory Rate 18 08/09/2024 12:47 PM CDT Oxygen Saturation 99% 08/09/2024 1:00 PM CDT Inhaled Oxygen Concentration - - Weight 97.3 kg (214 lb 6.4 oz) 12/28/2022 10:10 PM EXERCISE INSTRUCTOR Height 176.5 cm (5' 9.49 ) 12/28/2022 10:[address] Body Mass Index 31.22 12/28/2022 10:10 PM EXERCISE INSTRUCTOR Plan of Treatment Health Maintenance Due Date Last Done Comments Albumin Creatinine Ratio, Urine 1940 Depression Screening 1940 Dilated Eye Exam 1940 Foot Exam 1940 Hepatitis B Screening 1957 Well Visit 65+ 2004 Pneumococcal vaccine 65+ (2 of 2 - PPSV23) 02/08/2016 12/14/2015, 09/03/2013, 10/31/2004 Hemoglobin A1C 06/28/2023 12/29/2022 Lipid Panel 12/29/2023 12/29/2022 Fall Risk Assessment 12/31/2023 12/31/2022 Covid-19 Vaccine (2023-2 5 season) 2024 04/10/2021, 03/20/2021 Influenza Vaccine (#1) 2024 12/02/2002 eGFR 08/09/2025 08/09/2024, 12/04, 12/30/2022, Additional history exists DTaP/Tdap/Td Vaccine (4 - Td or Tdap) 09/02/2025 09/02/2015, 09/01/2014, 12/02/2007 Zoster Vaccine Completed 2022, 12/02, 07/05/2009 Procedures Procedure Name Priority Date/Time Associated Diagnosis Comments EGFR STAT 08/09/2024 11:05 AM CDT HEMOGLOBIN A1C Routine 12/29/2022 4:32 AM EXERCISE INSTRUCTOR LIPID PANEL Routine 12/29/2022 4:32 AM EXERCISE INSTRUCTOR from Last 3 Months or Most Recently [...] MD LAB BLOOD ORDERABLE S Final Result MAHESH [address] [facility] Department [place] [address] * (ABNORMAL) Hemoglobin A1c (12/29/2022 4:32 AM EXERCISE INSTRUCTOR) Hgb A1C 7.5(H) 4.0 - 5.6 % MAHESH Estimated Average Glucose 169 mg/dL MAHESH MAGANA Comment: The ADA recommends reporting an estimated Average Glucose (eAG) with all Hemoglobin A1c results using the equation derived from a study of 507 normal and diabetic adults. Minority populations were underrepresented and children were not included. (Diabetes Care 31:6682-2917, 2008). The eAG is not equivalent to a fasting glucose. Blood 12/29/2022 4:32 AM EXERCISE INSTRUCTOR 12/29/2022 8:23 PM EXERCISE INSTRUCTOR Todd Briceno MD LAB BLOOD ORDERABLES Final Result Performing Organization Address City/[facility]/ZIP Co de Phone Number MAHESH [id number] Department [place] [address] * (ABNORMAL) Lipid panel (12/29/2022 4:32 AM EXERCISE INSTRUCTOR) Cholesterol 194 30 - 199 mg/dL MAHESH [...] 6 MAHESH MAGANA Blood 12/29/2022 4:32 AM EXERCISE INSTRUCTOR 12/29/2022 8:23 PM EXERCISE INSTRUCTOR Todd Briceno MD LAB BLOOD ORDERABLES Final Result MAHESH MAGANA [id number] Department of Laboratories [place], [place] [id number] from Last 3 Months or Most Recently Relevant to Health Maintenance Insurance [facility] [place]IC[place] [address] MEDICARE [employer] MEDICARE [facility] Advance Directives For more information, please contact: [phone] Documents on File Type Date Recorded Patient Healthcare Project Manager Expl anation ADVANCE DIRECTIVE 08/10/2024 3:10 PM POLST - Phys Order for PT Preferences ADVANCE DIRECTIVE 08/10/2024 3:10 PM Power of Analytical Lab Analyst-Medical * Full Code (Latest Code Status on File) Date Activated Date Inactivated Comments 12/28/2022 10:55 PM 12/31/2022 10:03 PM * Full Code Date Activated Date Inactivated Comments 12/28/2022 10:55 PM 12/28/2022 10:55 PM * Full Code Date Activated Date Inactivated Comments 12/28/2022 7:45 PM 12/28/2022 10:55 PM * Full Code Date Activated Date Inactivated Comments 06/16/2018 11:55 AM 06/16/2018 1:55 PM Care Teams Solar Photovoltaic Electrician Relationship Specialty Start Date End Date Richard Cartagena MD [address] [place] [address] PCP - General 02/23/13
[2025-02-12 05:43] LABS: Glucose Point of Care 57 mg/dl (65-105)
[2025-02-12 05:53] LABS: Glucose Point of Care 172 mg/dl (65-105)
[2025-02-12 06:19] VITALS: BP 132/70; PULSE 65; RESP 15; O2SAT 96
[2025-02-12 07:10] VITALS: BP 149/66; PULSE 74; RESP 15; O2SAT 97
[2025-02-12 07:38] LABS: Glucose Point of Care 135 mg/dl (65-105)
--- NOTE | 2025-02-12 08:49 | PC.NURSE ---
Update given to pts son Venu.
[2025-02-12 09:11] LABS: Glucose Point of Care 86 mg/dl (65-105)
== END 2025-02-12 09:33 | disposition home or self-care (01) ==
PROVIDERS: Emergency Provider Emergency Medicine; PCP Family Medicine
DX: E11.649 Type 2 diabetes mellitus with hypoglycemia without coma (principal); W18.00XA Striking against unspecified object with subsequent fall, initial encounter; Z79.82 Long term (current) use of aspirin; Z79.02 Long term (current) use of antithrombotics/antiplatelets; Z79.4 Long term (current) use of insulin; N18.32 Chronic kidney disease, stage 3b; E03.9 Hypothyroidism, unspecified; E11.22 Type 2 diabetes mellitus with diabetic chronic kidney disease; Z85.038 Personal history of other malignant neoplasm of large intestine; Z86.73 Personal history of transient ischemic attack (TIA), and cerebral infarction without residual deficits; E78.5 Hyperlipidemia, unspecified; Z87.891 Personal history of nicotine dependence
CPT/HCPCS: 70450; 72125; 82948; 96374; 99284

== ENCOUNTER 2025-04-09 19:34 | Inpatient (IN) | payer MEDICARE, MEDICAID, SELFPAY ==
[2025-04-09] VITALS (16 sets, daily range): BP systolic 110–120; BP diastolic 58–61; PULSE 88–106; RESP 13–19; TEMP 37.6; O2SAT 87–100
--- NOTE | ~2025-04-09 | XR_ITS ---
CHEST RADIOGRAPH CLINICAL HISTORY: Chest pain, hypoxia, N/V . COMPARISON: 01/22/2021 TECHNIQUE: Single portable view of the chest. FINDINGS Sternal wires and mediastinal clips are identified, the wires are midline and intact. Prosthetic valve in the aortic position. The remainder of the cardiomediastinal silhouette is enlarged, but otherwise unremarkable. Patchy consolidation detected bilaterally, consistent with multifocal pneumonia. Blunting of the bilateral costophrenic sulcus, consistent with small bilateral pleural effusions. IMPRESSION: Small bilateral pleural effusions with multifocal pneumonia. Reviewed, dictated and finalized at location A.
--- NOTE | ~2025-04-09 | XR_ITS ---
EXAMINATION: XR chest 1V portable Exam Date/Time: 04/13/2025 13:37 CDT HISTORY: pneumonia Comparison: CTPA 04/09/2025. RESULT: Lines, tubes, and devices: Intact sternotomy wires. Ostial markers. Cardiac valve replacement. Media stinal surgical clips. Lungs and pleura: Rightward rotation. Patchy bilateral peripheral airspace disease, slightly improve d in the left upper and mid lung, slightly worse in the left lung base and right lung. Mild bilateral costophrenic angle blunting. Cardiomediastinal silhouette: Stable. Other: No acute osseous or upper abdominal finding. IMPRESSION: Improving airspace disease in the left upper and midlung. Stable/worsening airspace disease in the ri ght lung and left lower lung Reviewed, dictated and finalized at location K. IMPRESSION: Improving airspace disease in the left upper and midlung. Stable/worsening airs pace disease in the right lung and left lower lung
--- NOTE | ~2025-04-09 | CT_ITS ---
EXAMINATION: CTA chest PE protocol DATE: 04/09/2025 22:33 CDT INDICATION: TECHNIQUE: Computed tomographic angiography (CTA) of the chest was performed with 100 mL Omnipaque-35 0 intravenous contrast. The dose-length product was 772.57 mGy-cm. Maximum intensity projection 3D-re constructions of the aorta and other arteries were constructed by the technologist on a separate work station. COMPARISON: None. FINDINGS/OBSERVATIONS: PULMONARY ARTERIES: No filling defect is identified within the main or proximal pulmonary artery. The main pulmonary artery is not enlarged. THORACIC AORTA: No aneurysmal dilatation or dissection is present. The great vessels are intact LUNGS: Moderate bilateral pleural effusions, right greater than left with adjacent compressive atelec tasis. Patchy groundglass opacification within the bilateral lung foss, findings suggesting multifo kirsten infiltrates. MEDIASTINUM: No morphologically suspicious or pathologically enlarged lymph nodes are identified with in the mediastinum or bilateral axilla. BONES OF THE CHEST: No acute fracture. Age-appropriate degenerative disease. Wires within the sternum. No lytic or blastic lesions. HEART: The heart is markedly enlarged, without pericardial effusion. Prosthetic valve in the aortic position. IMPRESSION: No pulmonary embolus. No thoracic aortic dissection. Multifocal pneumonia, as detailed above. Reviewed, dictated and finalized at location A.
--- NOTE | 2025-04-09 20:00 | ECG_ITS ---
Test Date: 2025-04-09 19:38:26 Measurements Intervals [place] Rate: 112 P: 56 PA: 161 QRS: -54 QRSD: 128 T: 87 QT: 348 QTc: 477 Interpretive Statements SINUS TACHYCARDIA WITH OCCASIONAL VENTRICULAR PREMATURE COMPLEXES LEFT AXIS DEVIATION [QRS AXIS < -30] POSSIBLE ANTERIOR MYOCARDIAL INFARCTION , OF INDETERMINATE AGE [30 ms Q WAVE IN V3/V4, OR R < 0.2 mV IN V4] No previous ECG available for comparison Electronically Signed On 04-10-2025 15:41:02 CDT by Mary Figueroa M.D.
--- NOTE | 2025-04-09 20:06 | ED.GENADULT ---
HPI - General Adult General Chief complaint: Unspecified Stated complaint: N/V, BRENNER, CHEST PAIN - ALL RESOLVED NOW History of Present Illness HPI narrative: This is an 84-year-old male history of dementia presenting ED for chest pain. Earlier today he developed sharp pain in his chest. He then 2 episodes of nausea and vomiting. This was treated with Zofran symptoms improved. Associated symptoms headache. The care home sent him to the hospital for evaluation. When EMS arrived he was found to be hypoxic in the mid 80s and was placed on 3 L nasal cannula. Patient's only complaint at this time is leg pain which is a chronic problem for him. No change from his usual pain. No falls. He states he does not know why he is in the emergency room. Using x1 which is his baseline. He is denying headache chest pain, difficulty breathing, pain, nausea vomiting diarrhea. Patient notes occasional dysuria. Related Data Home Medications Medication Instructions Recorded Confirmed Last Taken Type aspirin 81 mg tablet,delayed 81 mg PO DAILY 01/17/21 02/27/24 01/17/24 21:00 History release atorvastatin 40 mg tablet 40 mg PO 01/17/21 02/27/24 01/17/24 21:00 History cholecalciferol (vitamin D3) 50 50 mcg PO DAILY 01/17/21 02/27/24 01/17/24 History mcg (2,000 unit) capsule losartan 25 mg tablet 25 mg PO DAILY 01/17/21 02/27/24 01/17/24 History omega 5-jsb-uro-fish oil 1,200 mg 1,200 cap PO DAILY 01/17/21 02/27/24 01/17/24 History (144 mg-216 mg) capsule (Fish Oil) potassium chloride 20 mEq 20 meq PO DAILY 01/17/21 02/27/24 01/17/24 History tablet,extended release ezetimibe 10 mg tablet 10 mg PO DAILY 02/14/23 02/27/24 01/17/24 History insulin aspart U-100 100 unit/mL 10 unit subcut QA 02/14/23 02/27/24 01/17/24 History (3 mL) subcutaneous pen insulin glargine 100 unit/mL (3 45 unit subcut HS 06/26/23 02/27/24 01/17/24 History mL) subcutaneous pen clopidogrel 75 mg tablet 75 mg PO DAILY 12/17/23 02/27/24 01/17/24 History gabapentin 100 mg capsule 100 mg PO TID 02/27/24 02/27/24 Unknown History Allergies Allergy/AdvReac Type Severity Reaction Status Date / Time codeine Allergy Unknown Hives Verified 02/27/24 11:13 doxazosin Allergy Unknown Unknown Verified 02/27/24 11:13 egg Allergy Unknown Nausea Verified 02/27/24 11:13 erythromycin base Allergy Unknown Fever Verified 02/27/24 11:13 Influenza Virus Vaccines Allergy Unknown Unknown Verified 02/27/24 11:13 lisinopril Allergy Unknown Unknown Verified 02/27/24 11:13 metformin Allergy Unknown Unknown Verified 02/27/24 11:13 Penicillins Allergy Unknown Unknown Verified 02/27/24 11:13 [facility] Past Medical History 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 Stage 3b chronic kidney disease Atherosclerosis of aorta Type 2 diabetes mellitus with diabetic chronic kidney disease Hypothyroid Hypertensive chronic kidney disease Post-void dribbling Atherosclerotic heart disease of [place] coronary artery with unspecified angina pectoris Microalbuminuria Personal history of colon cancer Enlarged prostate with lower urinary tract symptoms (LUTS) Type 2 diabetes mellitus with other circulatory complications Personal history of transient ischemic attack (TIA), 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 History of coronary artery bypass graft History of aortic valve replacement History of colon resection Exploratory laparotomy with abdominoperineal resection as well as a left inguinal hernia repair in December [address] Oliver for rectal cancer. Family History Family History Father Heart disease Mother Heart disease Asthma Sibling Heart disease Social History Social History Smoking packs per day: 2 Smoking cigarettes per day: 40.0 Years smoked: 47 Smoking pack-years: 94.00 Smoking status: Former smoker Tobacco type: cigarettes Second hand tobacco smoke exposure: No Smoking end date: 12/02/96 Alcohol intake: never Substance use: never Substance use type: does not use Do You Feel Safe in your Home?: Yes Lack of Transportation: No Lack of Food: Never True Current Housing: I Have Housing Concerned About Future Housing: No Difficulty Paying Gas/Electric Bills: No Difficulty Paying for Meds: No Currently Unemployed: YES Education: High School Diploma/GED Living arrangements: with family Occupation/Education: retired Gender identity (if verbalized by the patient): Male Sexual Orientation (if Verbalized by the Patient): Straight or Heterosexual Spiritual care concerns: No Exam Narrative: APPEARANCE: No apparent distress. AO x1 Head: atraumatic. EYES: EOMI, NOSE: Atraumatic NECK: Trachea midline RESPIRATORY: Hypoxic 86% on room air, bibasilar crackles, speaking in full sentences CARDIOVASCULAR: Tachycardic, edema of the ankles worse on left right ABDOMINAL: Non-distended soft nontender, colostomy placed in the left side of the abdomen w/ normal stool. MUSCULOSKELETAl: No obvious deformities NEURO: Alert. Moving 4/4 extremities SKIN:: Warm, dry. Normal color PSYCHIATRIC: Normal affect Course Vital Signs Vital signs: Vital Signs Temperature 99.6 F 04/09/25 19:33 Pulse Rate 100 04/09/25 19:33 Respiratory Rate 18 04/09/25 19:33 Blood Pressure 110/58 L 04/09/25 19:33 Pulse Oximetry 87 L 04/09/25 19:33 Oxygen Delivery Room Air 04/09/25 19:33 Temperature 99.6 F 04/09/25 19:33 Pulse Rate 102 H 04/09/25 19:49 Respiratory Rate 18 04/09/25 19:52 Blood Pressure 110/58 L 04/09/25 19:33 Pulse Oximetry 96 04/09/25 19:52 Oxygen Delivery Nasal Cannula 04/09/25 19:48 Oxygen Flow Rate 2 04/09/25 19:52 Medical Decision Making [facility] Narrative Medical decision making narrative: -Course: 84-year-old with dementia presenting with episode of chest pain and vomiting. Tachycardic and hypoxic on arrival per placed on supplemental oxygen. Full sepsis workup obtained. Sepsis workup syncope her white count 13.0. Lactic normal. CT PE showed multifocal pneumonia. Viral swabs negative. Urinalysis indicative of infection. Patient started on ceftriaxone and doxycycline which will cover his pneumonia and urinary tract infection. BNP was elevated 5000 but clinically the patient does not appear overtly fluid overloaded. Echo from January 2021 showed EF of 55-60% with grade 1 diastolic dysfunction. Given 30 cc/kilogram bolus LR for sepsis. Closely monitor for fluid overload. Initial troponin elevated at 0.375. Repeat pending. No active chest pain at this time. likely demand ischemia from sepsis. will continue to trend. Independent EKG interpretation: Rhythm [sinus], Rate [112], [place] -[left], [place] -[normal], QRS [wide], QTC [wide], T waves -[negative for concerning inversions], ST Segments - [Negative for concerning elevations] Final interpretations: Sinus tachycardia with nonspecific ST changes -DDX includes but is not limited to: Sepsis UTI pneumonia CHF viral syndrome Vital Signs Vital Signs: Vital Signs Temperature 99.6 F 04/09/25 19:33 Pulse Rate 100 04/09/25 19:33 Respiratory Rate 18 04/09/25 19:33 Blood Pressure 110/58 L 04/09/25 19:33 Pulse Oximetry 87 L 04/09/25 19:33 Oxygen Delivery Room Air 04/09/25 19:33 Temperature 99.6 F 04/09/25 19:33 Pulse Rate 102 H 04/09/25 19:49 Respiratory Rate 18 04/09/25 19:52 Blood Pressure 110/58 L 04/09/25 19:33 Pulse Oximetry 96 04/09/25 19:52 Oxygen Delivery Nasal Cannula 04/09/25 19:48 Oxygen Flow Rate 2 04/09/25 19:52 Lab Data 04/09/25 21:16 04/09/25 21:16 Labs: Lab Results 04/09/25 04/09/25 04/09/25 Range/Units 21:16 21:16 21:41 WBC 13.0 H (4.5-10.0) K/mm3 RBC 3.00 L (4.6-6.20) M/mm3 Hgb 9.4 L (14.0-18.0) g/dL Hct 31.3 L (42.0-52.0) % MCV 104.3 H (80-100) fl MCH 31.3 (26-34) pg MCHC 30.0 L (32-36) g/dl RDW 13.2 (11.5-14.5) % Plt Count 224 (150-375) k/mm3 MPV 10.0 (7.4-10.4) fl Immature Gran % (Auto) 0.4 (0-0.5) % Neut % (Auto) 80.4 H (45.5-73.1) % Lymph % (Auto) 5.8 L (18.3-44.2) % [place] % (Auto) 12.9 H (2.6-8.5) % Eos % (Auto) 0.3 (0-4.4) % Baso % (Auto) 0.2 (0.2-1.2) % Lymph # (Auto) 0.75 L (0.9-3.2) K/mm3 [place] # (Auto) 1.7 H (0.1-0.6) K/mm3 Eos # (Auto) 0.0 (0-0.3) K/mm3 Baso # (Auto) 0.0 (0.0-0.1) K/mm3 Abs Immat Gran (auto) 0.05 H (0.00-0.031) K/mm3 Absolute Neuts (auto) 10.5 H (1.3-6.7) K/mm3 Absolute Nucleated RBC 0.000 (0.0-0.012) K/mm3 Nucleated RBC % 0.0 (0.0-0.2) % PT 15.3 H (11.1-14.7) Seconds INR 1.2 APTT 30.5 (22.3-36.8) Seconds D-Dimer 3.77 H (<0.48) ug/mL Sodium 136 L (137-145) mmol/L Potassium 4.6 (3.4-5.0) mmol/L Chloride 101 (98-107) mmol/L Carbon Dioxide 29 (22-30) mmol/L Anion Gap 6 (4-12) mmol/L BUN 20 (9-20) mg/dL Creatinine 1.52 H (0.7-1.3) mg/dL Estim Creat Clear Calc 32 ml/min Estimated GFR 44 L (59 - ) Glucose 250 H (65-110) mg/dL Lactic Acid 1.4 (0.7-2.0) mmol/L Calcium 8.5 (8.4-10.2) mg/dL Phosphorus 3.7 (2.5-4.5) mg/dL Magnesium 1.7 (1.6-2.3) mg/dL Total Bilirubin 0.6 (0.2-1.3) mg/dL AST 21 (17-59) U/L ALT 12 (6-50) U/L Alkaline Phosphatase 106 (38-126) U/L Troponin I 0.375 H* Pending (0.000-0.034) ng/mL NT-Pro-B Natriuret Pep 5270 H (19.9-100) pg/mL Total Protein 7.0 (6.3-8.2) g/dL Albumin 3.5 (3.5-5.1) g/dL Lipase 27 (23-300) U/L Urine Color Yellow (Yellow) Urine Appearance Turbid H (Clear) Urine pH 5.5 (5.0-9.0) Ur Specific [place] 1.014 (1.001-1.035) Urine Protein 1+ H (Negative) mg/dL Urine Glucose (UA) Negative (Negative) mg/dL Urine Ketones Negative (Negative) mg/dL Ur Blood (Man) 1+ H (Negative) Urine Nitrate Negative (Negative) Urine Bilirubin Negative (Negative) Urine Urobilinogen 0.2 (<2.0) mg/dL Add Ur Microanalysis Reviewed Leukocyte Esterase Rfl 3+ H (Negative) SIDDHARTH/UL Urine RBC 0-2 (0-2) /hpf Urine WBC >100 H (0-3) /hpf Ur Squamous Epith Cells None seen (Few) /hpf Urine Bacteria None seen /hpf Urine Casts 0-2 Urine Yeast (Budding) Present H (None) /hpf Influenza A (RT-PCR) Negative (Negative) Influenza B (RT-PCR) Negative (Negative) RSV (RT-PCR) Negative (Negative) SARS-CoV-2 RNA (RT-PCR) Negative (Negative) ABG Data ABG results: 04/09/25 20:20 Puncture Site Right brachial ABG pH 7.396 ABG pCO2 40.8 ABG pO2 83.8 ABG PO2/FiO2 Ratio 4.19 ABG HCO3 24.5 ABG O2 Saturation 96.3 ABG O2 Content 13.6 L ABG Base Excess -0.4 A-a Gradient 9.8 Oxyhemoglobin 94.8 Total Hemoglobin 10.1 L O2 Delivery Device Nasal cannula O2 Liters/Min 2.0 FiO2 20 Critical Care Time Critical Care Time Critical Care Time: Yes Total Critical Care Time: 35 Discharge Plan Discharge Clinical Impression: Multifocal pneumonia, Sepsis, Acute UTI, Hypoxic respiratory failure Patient Disposition: Still a Patient Condition: Serious Patient Language: Romanian Prescriptions: No Action ezetimibe 10 mg tablet 10 mg PO DAILY insulin glargine 100 unit/mL (3 mL) insulin pen 45 unit SUBCUT HS clopidogrel 75 mg tablet 75 mg PO DAILY gabapentin 100 mg capsule 100 mg PO TID tamsulosin 0.4 mg capsule 0.4 mg PO DAILY Qty: 90 1RF dapagliflozin propanediol 10 mg tablet 10 mg PO DAILY Qty: 90 1RF metoprolol tartrate 25 mg tablet 25 mg PO BID Qty: 180 1RF atorvastatin 40 mg Tablet 40 mg PO HS aspirin 81 mg Tablet,Delayed Release (Dr/Ec) 81 mg PO DAILY losartan 25 mg Tablet 25 mg PO DAILY cholecalciferol (vitamin D3) 50 mcg (2,000 unit) Capsule 50 mcg PO DAILY omega 8-zuj-sqz-fish oil [Fish Oil] 1,200 (144-216) mg Capsule 1,200 cap PO DAILY potassium chloride 20 mEq Tablet Extended Release 20 meq PO DAILY insulin aspart U-100 100 unit/mL (3 mL) insulin pen 10 unit SUBCUT QAM Rx Instructions: 10 units at Breakfast, 10 UNITS AT LUNCH AND 10 UNITS AT DINNER cyclobenzaprine 5 mg tablet 5 mg PO TID PRN (Reason: muscle spasm) Qty: 60 0RF levothyroxine 75 mcg tablet 75 mcg PO DAILY Qty: 90 1RF Follow-up/Referrals: Richard Cartagena MD [Primary Care Provider] -
--- OUTSIDE RECORDS SUMMARY | 2025-04-09 20:12 | XMS_ITS | Referral Summary ---
Author Organization [facility] Address [address] [place] [id number] Care Team Providers Care Heel Emery Buffer Name Role Phone Richard Cartagena MD Primary Care Provider [phone] Allergies Active Allergy Reactions Criticality Noted Date [...] 1 tablet (75 mcg total) by mouth pleat taper before breakfast 4 Active meclizine (ANTIVERT) 25 [...] artery disease of n ative artery of [place] heart with stable angina pectoris 12/29/2022 History [...] (06/16/2018): Added automatically from request for surgery [id number] Chest pain Social History Tobacco Use Types [...] on file Legal Sex Male 7:32 AM POLICE SHIFT COMMANDER Gender Identity Not on file Sexual Orientation [...] (214 lb 6.4 oz) 12/28/2022 10:10 PM POLICE SHIFT COMMANDER Height 176.5 cm (5' 9.49 ) 12/28/2022 10:[address] Body Mass Index 31.22 12/28/2022 10:10 PM POLICE SHIFT COMMANDER Plan of Treatment Not on file Procedures Procedure Name Priority Date/Time Associated Diagnosis Comments EGFR STAT 08/09/2024 11:05 AM CDT HEMOGLOBIN A1C Routine 12/29/2022 4:32 AM POLICE SHIFT COMMANDER LIPID PANEL Routine 12/29/2022 4:32 AM POLICE SHIFT COMMANDER from Last 3 Months or Most Recently [...] ORDERABLE S Final Result Performing Organization Address City/State/[facility] Co de Phone Number MAHESH [address] [facility] [place] [address] * (ABNORMAL) Hemoglobin A1c (12/29/2022 4:32 AM POLICE SHIFT COMMANDER) Hgb A1C 7.5(H) 4.0 - 5.6 % MAHESH Estimated Average Glucose 169 mg/dL MAHESH MAGANA Comment: The ADA recommends reporting an estimated Average Glucose (eAG) with all Hemoglobin A1c results using the equation derived from a study of 507 normal and diabetic adults. Minority populations were underrepresented and children were not included. (Diabetes Care 31:1516-2677, 2008). The eAG is not equivalent to a fasting glucose. Blood 12/29/2022 4:32 AM POLICE SHIFT COMMANDER 12/29/2022 8:23 PM POLICE SHIFT COMMANDER Todd Briceno MD LAB BLOOD ORDERABLES Final Result Performing Organization Address City/[facility] Co de Phone Number MAHESH [phone] Department [place] [address] * (ABNORMAL) Lipid panel (12/29/2022 4:32 AM POLICE SHIFT COMMANDER) Pathologist [facility] Cholesterol 194 30 - 199 mg/dL MAHESH [...] 6 MAHESH MAGANA Blood 12/29/2022 4:32 AM POLICE SHIFT COMMANDER 12/29/2022 8:23 PM POLICE SHIFT COMMANDER Todd Briceno MD LAB BLOOD ORDERABLES Final Result MAHESH MAGANA [id number] Department [place] [address] from Last 3 Months or Most Recently Relevant to Health Maintenance Insurance [facility] MEDICARE ADVANTAGE MEDICARE [facility] MEDICARE [facility] Advance Directives For more information, please contact: [phone] Documents on File Type Date Recorded Patient Plug Overwrap Machine Tender Expl anation ADVANCE DIRECTIVE 08/10/2024 3:10 PM POLST - Phys Order for PT Preferences ADVANCE DIRECTIVE 08/10/2024 3:10 PM Power of Apparel Embroidery Digitizer-Medical * Full Code (Latest Code Status on File) Date Activated Date Inactivated Comments 12/28/2022 10:55 PM 12/31/2022 10:03 PM * Full Code Date Activated Date Inactivated Comments 12/28/2022 10:55 PM 12/28/2022 10:55 PM * Full Code Date Activated Date Inactivated Comments 12/28/2022 7:45 PM 12/28/2022 10:55 PM * Full Code Date Activated Date Inactivated Comments 06/16/2018 11:55 AM 06/16/2018 1:55 PM Care Teams Heel Emery Buffer Relationship Specialty Start Date End Date Richard Cartagena MD [address] [place] [id number] PCP - General 02/23/13
--- OUTSIDE RECORDS SUMMARY | 2025-04-09 20:12 | XMS_ITS | Clinical Summary ---
Author Organization [facility] Address [address] [place] [id number] Care Team Providers Care Messaging Architect Name Role Phone Richard Cartagena MD Primary Care Provider [phone] Allergies Active Allergy Reactions Criticality Noted Date [...] 1 tablet (75 mcg total) by mouth binder caser before breakfast 4 Active meclizine (ANTIVERT) 25 [...] artery disease of n ative artery of [place] heart with stable angina pectoris 12/29/2022 History [...] (06/16/2018): Added automatically from request for surgery [id number] Chest pain Surgical History Surgery Date Site/Laterality [...] on file Legal Sex Male 7:32 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 Gender Identity Not on file Sexual Orientation [...] (214 lb 6.4 oz) 12/28/2022 10:10 PM FINISHING FRAME RUNNER Height 176.5 cm (5' 9.49 ) 12/28/2022 10:[address] Body Mass Index 31.22 12/28/2022 10:10 PM FINISHING FRAME RUNNER Plan of Treatment Health Maintenance Due Date [...] CDT HEMOGLOBIN A1C Routine 12/29/2022 4:32 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 LIPID PANEL Routine 12/29/2022 4:32 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 from Last 3 Months or Most Recently [...] BLOOD ORDERABLE S Final Result MAHESH [address] [facility] Department [place] [address] * (ABNORMAL) Hemoglobin A1c (12/29/2022 4:32 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) Hgb A1C 7.5(H) 4.0 - 5.6 % MAHESH Estimated Average Glucose 169 mg/dL MAHESH MAGANA Comment: The ADA recommends reporting an estimated Average Glucose (eAG) with all Hemoglobin A1c results using the equation derived from a study of 507 normal and diabetic adults. Minority populations were underrepresented and children were not included. (Diabetes Care 31:2401-3365, 2008). The eAG is not equivalent to a fasting glucose. Blood 12/29/2022 4:32 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 12/29/2022 8:23 PM FINISHING FRAME RUNNER Todd Briceno MD LAB BLOOD ORDERABLES Final Result Performing Organization Address City/[facility]/ZIP Co de Phone Number MAHESH [address] Department [place] [address] * (ABNORMAL) Lipid panel (12/29/2022 4:32 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) Cholesterol 194 30 - 199 mg/dL MAHESH [...] 6 MAHESH MAGANA Blood 12/29/2022 4:32 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 12/29/2022 8:23 PM FINISHING FRAME RUNNER Todd Briceno MD LAB BLOOD ORDERABLES Final Result MAHESH MAGANA [id number] Department of Laboratories [place] [id number] from Last 3 Months or Most Recently Relevant to Health Maintenance Insurance [facility] MEDICARE ADVANTAGE MEDICARE [facility] MEDICARE [facility] Advance Directives For more information, please contact: [phone] Documents on File Type Date Recorded Patient Provider Relations Coordinator Expl anation ADVANCE DIRECTIVE 08/10/2024 3:10 PM POLST - Phys Order for PT Preferences ADVANCE DIRECTIVE 08/10/2024 3:10 PM Power of Yard Associate-Medical * Full Code (Latest Code Status on File) Date Activated Date Inactivated Comments 12/28/2022 10:55 PM 12/31/2022 10:03 PM * Full Code Date Activated Date Inactivated Comments 12/28/2022 10:55 PM 12/28/2022 10:55 PM * Full Code Date Activated Date Inactivated Comments 12/28/2022 7:45 PM 12/28/2022 10:55 PM * Full Code Date Activated Date Inactivated Comments 06/16/2018 11:55 AM 06/16/2018 1:55 PM Care Teams Messaging Architect Relationship Specialty Start Date End Date Richard Cartagena MD [address] [place] [id number] PCP - General 02/23/13
--- OUTSIDE RECORDS SUMMARY | 2025-04-09 20:12 | XMS_ITS | Clinical Summary ---
Author Organization [facility] Address [address] [place] [address] Care Team Providers Care Handbag Parts Cutter Name Role Phone Unavailable Primary Care Provider Unavailabl e Source Comments [facility],non-owned Affiliates and Associated Physician Practices is amultiple site organization consisting of ambulatory clinics and hospital sitesin [place], [place], [place] and [place]. This disclosure is being madepursuant to the Care Everywhere program and may not contain all information available regarding this patient. Last updated 18.[employer] Allergies No known active allergies Medications * Be aware that medications may not be up to date on this document. Always verify current medications with the patient. acetaminophen (Tylenol) 325 MG tablet Take 2 (two) tablets by mouth every 6 hours as needed Maximum allowable Acetaminophen amount = 4 Grams (4000 mg) / 24 hours. 4 Active aspirin (Aspirin) 81 MG chew tablet Take 1 (one) tablet by mouth once daily 30 tablet 4 Active insulin aspart (NovoLOG) pen Inject 6 (six) Units subcutaneously 3 times daily with meals 100 mL 4 Active insulin glargine (Lantus/Semgle e) 100 units/mL pen Inject 24 (twenty four) Units subcutaneously at bedtime 100 mL 4 Active atorvastatin (Lipitor) 80 MG tablet Take 1 (one) tablet by mouth at bedtime 30 tablet 4 Active tamsulosin (Flomax) 0.4 MG capsule Take 1 (one) capsule by mouth once daily At the same time every day after a meal. 30 capsule 4 Active clopidogrel (plaVIX) 75 MG tablet Take 1 (one) tablet by mouth once daily 30 tablet Active levothyroxine (Synthroid) 75 MCG tablet Take 1 (one) tablet by mouth once daily 30 tablet Active vitamin D3 (Cholecacifero l) 125 MCG (5000 UT) tablet Take 1 (one) tablet by mouth once daily 30 tablet Active Active Problems Problem Noted Date Diagnosed [...] and heating? Not hard at all 03/22/2024 [facility] - Occupational Stress [...] place to sleep or slept in a fpc (including now)? Yes 03/22/2024 Sex and Gender Information Value Date Recorded Sex Assigned at Not on file Legal Sex Male 8:41 AM DIRECTOR SERVICE Gender Identity Not on file Sexual Orientation [...] - 2023-2 5 season) 2024 04/10/2021, 03/20/2021 DEPRESSION SCREENING 12/02/2024 MEDICARE AWV CALENDAR YEAR 2024 INFLUENZA VACCINE (Season Ended) 2025 HEPATITIS B VACCINE Aged Out No longe [...] on patient's age to complete this topic Insurance MANAGED MEDICARE ADV Advance Directives * Full Code (Latest Code Status on File) Date Activated Date Inactivated Comments 03/21/2024 8:50 PM 03/21/2024 9:23 PM
--- OUTSIDE RECORDS SUMMARY | 2025-04-09 20:12 | XMS_ITS | Encounter Summary ---
Author Organization [facility] Address [facility] [place] [address] Care Team Providers Care Cut Off Machine Unloader Name Role Phone None, Provider Primary Care Provider Darlina ble Encounter Details Date Type Department Care Team (Latest Contact Info) Description 03/29/2025 Results Follow-Up [facility] [address] [phone] Gita Cevallos RN [facility] CAROTID DUPLEX JOSE C Social History Tobacco Use Types Packs/Day Years Used Date Smoking Tobacco: Former Cigarettes S tarted: 1951 Sex and Gender Information Value Date Recorded Sex Assigned at Male 12/28/2024 7:24 AM STORE RECEIVER Legal Sex Male 2:41 PM CDT Gender Identity Not on file Sexual Orientation Not on file documented as of this encounter Plan of Treatment Upcoming Encounters Date Type Department Care Team (Late st Contact Info) Description 04/16/2025 8:45 AM CDT Office Visit [facility] [phone] Torin Miller MD [address] [facility] [address] [place] [address] 04/21/2025 10:00 AM CDT [facility] [address] [place] [address] Leslie May MD [address] [place] [id number] documented as of this encounter Visit Diagnoses Not on filedocumented in this encounter Care Teams Cut Off Machine Unloader Relationship Specialty Start Date End Date None, Provider, PCP - General UNKNOWN PHYSICIAN SPECIALTY 11/18/24 documented as of this encounter
--- OUTSIDE RECORDS SUMMARY | 2025-04-09 20:12 | XMS_ITS | Clinical Summary ---
Author Organization [facility] Address [address] [place] [address] Care Team Providers Care Job Interviewer Name Role Phone None, Provider MD Primary [...] by mouth daily. Active Cholecalciferol 50 MCG (2000 UT) Tab Take 50 mcg by mouth daily. Active losartan (COZAAR) 25 MG tablet Take 1 tablet (25 mg total) by mouth daily. Active [place]-3 Fatty Acids (FISH OIL) 1200 MG Cap [...] Diagnosed Date Coronary artery disease invo lving [place] coronary artery of [place] heart without angina pectoris 12/15/2024 History of aortic valve repl acement with bioprosthetic valve 12/15/2024 Hx of CABG 12/15/2024 Primary hypertension 12/15/2024 Chronic heart failure with p reserved ejection fraction (CMS/HCC HHS/HCC) 12/15/2024 PAD (peripheral artery disease) 12/15/2024 History of left-sided carotid endarterectomy H/O insulin dependent diabetes mellitus 12/15/19 25 Mixed hyperlipidemia 12/15/2024 Red blood cell antibody positive 12/15/2024 Popliteal aneurysm 11/18/2024 Critical limb ischemia of left lower extremity 1 01/19/2024 Encounters Date Type Department Care Team Description 03/31/2025 Telephone [facility] [address] [place] [address] Torin Miller MD Results 03/29/2025 1:11 PM CDT - 03/29/2025 11:59 PM CDT Hospital Encounter [facility] [place] [address] Torin Miller MD Discharge Disposition: Home or Self Care (Routine Discharge) 03/29/2025 Results Follow-Up [facility] [phone] Gita Cevallos RN USV CAROTID DUPLEX JOSE C 03/29/2025 Travel 01/11/2025 Telephone [facility], [address] [address] Leslie May MD Surgical Clearance 01/11/2025 Telephone [facility], [address] [address] Yulissa Meek, ANIMATION PRODUCER Results from Last 3 Months Family History Medical History Relation Comments Heart Disease Father Asthma Mother Heart Disease Mother Relation Status Comments Father Mother Social History Tobacco Use Types Packs/Day Years Used Date Smoking Tobacco: Former Cigarettes S tarted: 1950 Tobacco Cessation:Counseling Given: Not Answered Sex and Gender Information Value Date Recorded Sex Assigned at Male 12/28/2024 7:24 AM SOCIAL WORK ADMINISTRATOR Legal Sex Male 2:41 PM CDT Gender Identity Not on file Sexual Orientation Not on file Last Filed Vital Signs Vital Sign Reading Time Taken Comments Blood Pressure 92/48 12/18/2024 8:07 AM SOCIAL WORK ADMINISTRATOR Pulse 95 12/18/2024 8:07 AM SOCIAL WORK ADMINISTRATOR Temperature 36.7 C (98 F) 11/18/2024 9:19 AM SOCIAL WORK ADMINISTRATOR Respiratory Rate 18 11/18/2024 9:19 AM SOCIAL WORK ADMINISTRATOR Oxygen Saturation 93% 12/18/2024 8:07 AM SOCIAL WORK ADMINISTRATOR Inhaled Oxygen Concentration - - Weight 77.1 kg (170 lb) 12/18/2024 8:07 AM SOCIAL WORK ADMINISTRATOR Height 176.5 cm (5' 9.5 ) 12/18/2024 8:07 AM SOCIAL WORK ADMINISTRATOR Body Mass Index 24.74 12/18/2024 8:07 AM SOCIAL WORK ADMINISTRATOR Plan of Treatment Upcoming Encounters Date Type Department Care Team (Late st Contact Info) Description 04/16/2025 8:45 AM CDT Office Visit [facility]-[address] [phone] Torin Miller MD 3 [facility] [place] [address] [place] [phone] 04/21/2025 10:00 AM CDT Office Visit [facility] [place]Note 2[place] [address] [facility] [address], [place] [address] [place] [address] Leslie May MD [address] [place] [phone] Health Maintenance Due Date Last Done Comments ASCVD LDL 1940 Zoster Vaccines (1 of 2) 1989 Annual Medicare Wellness Visit 2004 RSV Immunization or 60+ Years (1 - 1-dose 75+ series) 2014 Pneumococcal Vaccine: 50+ Years (2 of 2 - PPSV23) 02/08/2016 12/14/2015 COVID-19 Vaccine (3 - 2023-2 5 season) 2024 04/10/2021, 03/20/2021 DTaP, Tdap and Td Vaccines ( 3 - Td or Tdap) 09/02/2025 09/02/2015, 09/01/2014 Meningococcal B Vaccine Aged Out No l onger eligible based on patient's age to complete this topic Meningococcal Vaccine Aged Out No katty tobi eligible based on patient's age to complete this topic RSV Immunizations Under 20 Months Aged Out No longer eligible b ased on patient's age to complete this topic Procedures Procedure Name Priority Date/Time Associated Diagnosis Comments USV CAROTID DUPLEX JOSE C Routine 3:44 PM CDT History of left-sided carotid endarterectomy Stenosis of carotid artery, unspecified laterality USE ECHOCARDIOGRAM W CON Routine 03/29/2025 2:16 PM CDT Coronary artery disease involving [place] coronary artery of [place] heart without angina pectoris History of aortic valve replacement with bioprosthetic valve Hx of CABG Chronic heart failure with preserved ejection fraction (CMS/HCC HHS/HCC) from Last 3 Months Results * USV CAROTID DUPLEX JOSE C (03/29/2025 3:44 PM CDT) Anatomical Region Laterality Modality Neck Vascular Ultraso und 03/29/2025 2:22 PM CDT Narrative 03/29/2025 9:29 PM CDT CAROTID ARTERY DUPLEX IMAGING VASCULAR LAB Pat.Name: MAURICIO GARCES Pat.ID: [id number] St.Date: 03/29/2025 Refer.MD: [id number] DOMIGNA Ashford Exam Time: 2:22:00 PM Study Type:ANNIE VS Duplex Carotid BI Height: 69 in Age: 7 1940,84Y Sex: M Sonogrphr: Apoorva Oliveira RVT/Crista Ruiz Pat. Stat.:Outpatient History / Clinical:Bilateral carotid stenosis; s/p left CEA 11/2023 Procedures: Kang scale, Color Doppler imaging, Doppler Spectral Analysis Race: W ++++++++++++++++++++++++++++++++++++ SUMMARY: ++++++++++++++++++++++++++++++++++++ St E's Carotid Criteria 50-69% = PSV 180-230 and/or Ratio 2.0 - 4.0 >70% = PSV >230 and Ratio >4.0 or EDV >100 Stent Criteria >80% = PSV >340 and Ratio >4.0 Right side: The right bifurcation-internal carotid artery has heterogeneous plaque. Internal carotid maximum velocity is 192 cm/s, with a ratio of 1.83 . The common carotid artery has heterogeneous plaque present. The external carotid artery has heterogeneous plaque proximally. Vertebral artery flow is antegrade. No defined ulceration noted. Left side: The left bifurcation-internal carotid artery has occlusive plaque. The common carotid artery has heterogeneous plaque present. The external carotid artery has heterogeneous plaque proximally. Vertebral artery flow is antegrade. No defined ulceration noted. CONCLUSION: Right internal carotid artery with plaque visualized. The velocities are elevated throughout the right carotid system which may be due to compensatory flow for contralateral occlusion. Internal carotid velocity on the right suggests 50-69% stenosis but the IC/CC ratio suggests less than 50% stenosis. Left internal carotid artery appears chronically occluded. Antegrade flow in the bilateral vertebral arteries. ++++++++++++++++++++++++++++++++++++ MEASUREMENTS: ++++++++++++++++++++++++++++++++++++ DOPPLER Right Prox CCA Prox CCA PSV 79.9 cm/s Right Dist CCA Dist CCA PSV 105 cm/s Right Prox ICA Prox ICA PSV 192 cm/s Prox ICA EDV 48.7 cm/s Right Mid ICA Mid ICA PSV 188 cm/s Mid ICA EDV 46 cm/s Right Dist ICA Dist ICA PSV 130 cm/s Dist ICA EDV 30.6 cm/s Right Prox ECA Prox ECA PSV 167 cm/s Right Vertebral Vertebral PSV 56.6 cm/s Right ICA/CCA RATIO ICA/CCA RATIO P 1.83 Left Prox CCA Prox CCA PSV 40.4 cm/s Left Dist CCA Dist CCA PSV 62.1 cm/s Left Prox ECA Prox ECA PSV 292 cm/s Left Vertebral Vertebral PSV 54 cm/s <Electronic Signature> 03/29/2025 09:29 PM Dakota Huang M.D. Procedure Note Dakota Huang MD - 03/29/2025 CAROTID ARTERY DUPLEX IMAGING VASCULAR LAB Pat.Name: MAURICIO GARCES Shagufta.ID: [id number] .Date: 03/29/2025 : [id number] DOMINGA Ashford Exam Time: 2:22:00 PM Study Type:ANNIE VS Duplex Carotid BI Height: 69 in Age: 7 1940,84Y Sex: M [facility]ogrphr: [facility]/Crista Ruiz [facility]. Stat.:Outpatient History / Clinical:Bilateral carotid stenosis; s/p left CEA 11/2023 Procedures: Kang scale, Color Doppler imaging, Doppler Spectral Analysis Race: W ++++++++++++++++++++++++++++++++++++ SUMMARY: ++++++++++++++++++++++++++++++++++++ St E's Carotid Criteria 50-69% = PSV 180-230 and/or Ratio 2.0 - 4.0 >70% = PSV >230 and Ratio >4.0 or EDV >100 Stent Criteria >80% = PSV >340 and Ratio >4.0 Right side: The right bifurcation-internal carotid artery has heterogeneous plaque. Internal carotid maximum velocity is 192 cm/s, with a ratio of 1.83 . The common carotid artery has heterogeneous plaque present. The external carotid artery has heterogeneous plaque proximally. Vertebral artery flow is antegrade. No defined ulceration noted. Left side: The left bifurcation-internal carotid artery has occlusive plaque. The common carotid artery has heterogeneous plaque present. The external carotid artery has heterogeneous plaque proximally. Vertebral artery flow is antegrade. No defined ulceration noted. CONCLUSION: Right internal carotid artery with plaque visualized. The velocities are elevated throughout the right carotid system which may be due to compensatory flow for contralateral occlusion. Internal carotid velocity on the right suggests 50-69% stenosis but the IC/CC ratio suggests less than 50% stenosis. Left internal carotid artery appears chronically occluded. Antegrade flow in the bilateral vertebral arteries. ++++++++++++++++++++++++++++++++++++ MEASUREMENTS: ++++++++++++++++++++++++++++++++++++ DOPPLER Right Prox CCA Prox CCA PSV 79.9 cm/s Right Dist CCA Dist CCA PSV 105 cm/s Right Prox ICA Prox ICA PSV 192 cm/s Prox ICA EDV 48.7 cm/s Right Mid ICA Mid ICA PSV 188 cm/s Mid ICA EDV 46 cm/s Right Dist ICA Dist ICA PSV 130 cm/s Dist ICA EDV 30.6 cm/s Right Prox ECA Prox ECA PSV 167 cm/s Right Vertebral Vertebral PSV 56.6 cm/s Right ICA/CCA RATIO ICA/CCA RATIO P 1.83 Left Prox CCA Prox CCA PSV 40.4 cm/s Left Dist CCA Dist CCA PSV 62.1 cm/s Left Prox ECA Prox ECA PSV 292 cm/s Left Vertebral Vertebral PSV 54 cm/s <Electronic Signature> 03/29/2025 09:29 PM Dakota Huang M.D. Torin Miller MD [facility] Final Result * USE ECHOCARDIOGRAM W CON (03/29/2025 2:16 PM CDT) Anatomical Region Laterality Modality NA Echocardiogram 03/29/2025 1:28 PM CDT Narrative 03/30/2025 5:51 PM CDT Echocardiography Report Pat.Name: MAURICIO GARCES Pat.ID: [id number] St.Date: 03/29/2025 Refer.MD: [id number] DOMINGA Ashford EWDPROV EWDPROV Exam Time: 1:28:00 PM Study Type:ECHO WITH CARDIAC DOPPLER COMP Height: 69 in Weight: 170 lb BSA: 1.93 m2 Age: 7 1940,84Y Sex: M BP: 119/55 HR: 76 bpm Sonogrphr: Abbie Alvarez [facility] Pat. Stat.:Outpatient Reason for Study:S/P AVR History / Clinical:Diabetes, Hypertension, Renal Insufficiency, PVD/PAD, Carotid Stenosis, Stroke/CVA/TIA, Hypothyroidism, Dyslipidemia Procedures: 2D, M-mode, Doppler, Color Flow, Definity was used to enhance endocardial definition. The study quality is technically adequate. Race: W ++++++++++++++++++++++++++++++++++++ SUMMARY: ++++++++++++++++++++++++++++++++++++ The left ventricular size is mildly enlarged. Estimated left ventricular ejection fraction is 45-50%. Basal Inferoseptal, Basal Inferior, Basal Inferolateral, Basal Anterolateral hay[place] are hypokinetic. Normal wall motion in all other hayden. Left ventricular diastolic function is abnormal. The right ventricular size is mildly enlarged. The left atrial volume is moderately increased (42-48 ml/M2). Inferior vena cava shows >50% collapse with respiration consistent with normal right atrial pressure. No evidence of patricio-prosthetic aortic valve regurgitation. No evidence of central prosthetic aortic valve regurgitation. No evidence of prosthetic aortic valve stenosis. Bio prosthetic aortic valve seen. Moderate mitral regurgitation. Mildly calcified mitral annulus. Mild calcification of mitral valve leaflets. Mild pulmonic regurgitation. Mild tricuspid regurgitation. Right ventricular systolic pressure is 40-45 mmHg suggestive of mild pulmonary hypertension. Normal aortic root and ascending aorta . ++++++++++++++++++++++++++++++++++++ FINDINGS: ++++++++++++++++++++++++++++++++++++ LV: The left ventricular size is mildly enlarged. Estimated left ventricular ejection fraction is 45-50%. There is no left ventricular hypertrophy. Left ventricular diastolic function is abnormal. Basal Inferoseptal, Basal Inferior, Basal Inferolateral, Basal Anterolateral hayden are hypokinetic. Normal wall motion in all other hayden. RV: The right ventricular size is mildly enlarged. Right ventricular systolic function is normal. IVS: No evidence of ventricular septal defect. LA: The left atrial volume is moderately increased (42-48 ml/M2). IAS: Atrial septum appears intact. PATRICIO: No evidence of pericardial effusion. AO: Normal aortic root. The sinus of Valsalva measures 3.6cm. The proximal ascending aorta measures 3.6cm. SVn: Inferior vena cava is normal. Inferior vena cava shows >50% collapse with respiration consistent with normal right atrial pressure. AV: Bio prosthetic aortic valve seen. No evidence of patricio-prosthetic aortic valve regurgitation. No evidence of central prosthetic aortic valve regurgitation. No evidence of prosthetic aortic valve stenosis. MV: Moderate mitral regurgitation. No evidence of mitral stenosis. Mildly calcified mitral annulus. Mild calcification of mitral valve leaflets. PV: No evidence of pulmonic valve stenosis. Mild pulmonic regurgitation. TV: Mild tricuspid regurgitation. Right ventricular systolic pressure is 35-45 mmHg suggestive of mild pulmonary hypertension. No evidence of tricuspid valve stenosis. ++++++++++++++++++++++++++++++++++++ MEASUREMENTS: ++++++++++++++++++++++++++++++++++++ DOPPLER LVOT LVOTpkPG 6 mmHg LVOTmnPG 3 mmHg LVOTpkVel 123 cm/s (70-110)* LVOT SV 106 ml LVOT TVI 28 cm Right Atrium RA Press 3 mmHg Quintanilla's Disk 20 AV Forward Flow AV TVI 42.4 cm AV pkPG 15 mmHg AV pkVel 195 cm/s (100-170)* Area (TVI) 2.51 cm2 (3-5)* AV mnPG 9 mmHg Area (Paul) 2.4 cm2 (3-5)* MV Forward Flow MV DeTm 155 msec MV pkE 135 cm/s (60-130)* MV E/A 1.5 MV pkA 88.8 cm/s MV Regurg Flow MV TVI 167 cm MV pkPG 112 mmHg MV mnPG 78 mmHg MV pkVel 530 cm/s (60-130)* MV mnVel 424 cm/s PV Forward Flow PV pkVel 85.8 cm/s (60-90) PV AC 122 msec PV pkPG 3 mmHg TV Regurg Flow TV pkPG 38 mmHg TV pkVel 309 cm/s (30-70)* Right Ventricle RVsys P 41 mmHg Right Ventricle 12.1 cm/s Lat E' Lat e 13.3 cm/s Lat E/E' Lat E/e 10.2 Med E' Med e 7.07 cm/s Med E/E' Med E/e 19.1 Aortic Valve Aortic Valve Ar 1.3 Aortic Valve Ve 0.63 MV RF(C) Value 35 % MV RV(C) Value 57 ml MV VTI(ANNULUS) Time averaged p 40 cm/s VTI 191 mm PG mean 1 mmHg PV Antegrade Flow Acceleration Sl 570 cm/s2 SV (MV) RF Value 163 ml 2D Left Ventricle LVIDd 5.6 cm (3.6-5.2)+* LV ESV 109 ml LVIDs 4.2 cm (2.3-3.9)+* LV ESV 115 ml LngAxd 9.19 cm LVESV BP 113 ml LngAxd 9.28 cm LV EF 46.8 % LV EDV 203 ml LV EF 45.2 % LV EDV 210 ml LV EF BP 45.4 % LVEDV BP 207 ml LV SV 95 ml LngAxs 8.41 cm LV SV 95 ml LngAxs 8.17 cm LV SV BP 94 ml LVPW LVPWd 1.1 cm Ventricular Septum IVSd 1.1 cm Left Atrium LA VOLBP 92.6 ml Aorta Ao Rtd 3.4 cm (zsc 1.8) Ao Asc 3.6 cm (zsc 3.9)* LVOT LVOT 2.2 cm LVOTArea 3.8 cm2 Mitral Valve MV shelli 3.3 cm (2.1-2.7)* Ratios IVS LA Biplane LAVol I BP 48 ml/m2 RA Single Plane Right Atrium MO 8.38 mm Right Atrium Sy 42.1 ml Right Atrium Sy 54.4 mm Right Atrium Sy 21.8 ml/m2 Right Atrium Sy 16.4 cm2 Right Ventricle Right Ventricle 49 mm Right Ventricle 44 mm Major [place] 79 mm MMODE TA Tricuspid Annul 21.4 mm ++++++++++++++++++++++++++++++++++++ WALL MOTION: ++++++++++++++++++++++++++++++++++++ RESTING WALL MOTION: Basal Inferoseptal, Basal Inferior, Basal Inferolateral, Basal Anterolateral hayden are hypokinetic. Normal wall motion in all other hayden. Wall Index = 1.2 <Electronic Signature> 03/30/2025 05:51 PM Torin Miller M.D. Procedure Note Torin Miller MD - 03/30/2025 Echocardiography Report Pat.Name: MAURICIO GARCES Pat.ID: [id number] .Date: 03/29/2025 Refer.: [id number] DOMINGA Ashford EWDPROV EWDPROV Exam Time: 1:28:00 PM Study Type:ECHO WITH CARDIAC DOPPLER COMP Height: 69 in Weight: 170 lb BSA: 1.93 m2 Age: 7 1940,84Y Sex: M BP: 119/55 HR: 76 bpm Sonogrphr: Abbie Alvarez [facility] Pat. Stat.:Outpatient Reason for Study:S/P AVR History / Clinical:Diabetes, Hypertension, Renal Insufficiency, PVD/PAD, Carotid Stenosis, Stroke/CVA/TIA, Hypothyroidism, Dyslipidemia Procedures: 2D, M-mode, Doppler, Color Flow, Definity was used to enhance endocardial definition. The study quality is technically adequate. Race: W ++++++++++++++++++++++++++++++++++++ SUMMARY: ++++++++++++++++++++++++++++++++++++ The left ventricular size is mildly enlarged. Estimated left ventricular ejection fraction is 45-50%. Basal Inferoseptal, Basal Inferior, Basal Inferolateral, Basal Anterolateral hayden are hypokinetic. Normal wall motion in all other hayden. Left ventricular diastolic function is abnormal. The right ventricular size is mildly enlarged. The left atrial volume is moderately increased (42-48 ml/M2). Inferior vena cava shows >50% collapse with respiration consistent with normal right atrial pressure. No evidence of patricio-prosthetic aortic valve regurgitation. No evidence of central prosthetic aortic valve regurgitation. No evidence of prosthetic aortic valve stenosis. Bio prosthetic aortic valve seen. Moderate mitral regurgitation. Mildly calcified mitral annulus. Mild calcification of mitral valve leaflets. Mild pulmonic regurgitation. Mild tricuspid regurgitation. Right ventricular systolic pressure is 40-45 mmHg suggestive of mild pulmonary hypertension. Normal aortic root and ascending aorta . ++++++++++++++++++++++++++++++++++++ FINDINGS: ++++++++++++++++++++++++++++++++++++ LV: The left ventricular size is mildly enlarged. Estimated left ventricular ejection fraction is 45-50%. There is no left ventricular hypertrophy. Left ventricular diastolic function is abnormal. Basal Inferoseptal, Basal Inferior, Basal Inferolateral, Basal Anterolateral hay[place] are hypokinetic. Normal wall motion in all other hayden. RV: The right ventricular size is mildly enlarged. Right ventricular systolic function is normal. IVS: No evidence of ventricular septal defect. LA: The left atrial volume is moderately increased (42-48 ml/M2). IAS: Atrial septum appears intact. PATRICIO: No evidence of pericardial effusion. AO: Normal aortic root. The sinus of Valsalva measures 3.6cm. The proximal ascending aorta measures 3.6cm. SVn: Inferior vena cava is normal. Inferior vena cava shows >50% collapse with respiration consistent with normal right atrial pressure. AV: Bio prosthetic aortic valve seen. No evidence of patricio-prosthetic aortic valve regurgitation. No evidence of central prosthetic aortic valve regurgitation. No evidence of prosthetic aortic valve stenosis. MV: Moderate mitral regurgitation. No evidence of mitral stenosis. Mildly calcified mitral annulus. Mild calcification of mitral valve leaflets. PV: No evidence of pulmonic valve stenosis. Mild pulmonic regurgitation. TV: Mild tricuspid regurgitation. Right ventricular systolic pressure is 35-45 mmHg suggestive of mild pulmonary hypertension. No evidence of tricuspid valve stenosis. ++++++++++++++++++++++++++++++++++++ MEASUREMENTS: ++++++++++++++++++++++++++++++++++++ DOPPLER LVOT LVOTpkPG 6 mmHg LVOTmnPG 3 mmHg LVOTpkVel 123 cm/s (70-110)* LVOT SV 106 ml LVOT TVI 28 cm Right Atrium RA Press 3 mmHg Quintanilla's Disk 20 AV Forward Flow AV TVI 42.4 cm AV pkPG 15 mmHg AV pkVel 195 cm/s (100-170)* Area (TVI) 2.51 cm2 (3-5)* AV mnPG 9 mmHg Area (Paul) 2.4 cm2 (3-5)* MV Forward Flow MV DeTm 155 msec MV pkE 135 cm/s (60-130)* MV E/A 1.5 MV pkA 88.8 cm/s MV Regurg Flow MV TVI 167 cm MV pkPG 112 mmHg MV mnPG 78 mmHg MV pkVel 530 cm/s (60-130)* MV mnVel 424 cm/s PV Forward Flow PV pkVel 85.8 cm/s (60-90) PV AC 122 msec PV pkPG 3 mmHg TV Regurg Flow TV pkPG 38 mmHg TV pkVel 309 cm/s (30-70)* Right Ventricle RVsys P 41 mmHg Right Ventricle 12.1 cm/s Lat E' Lat e 13.3 cm/s Lat E/E' Lat E/e 10.2 Med E' Med e 7.07 cm/s Med E/E' Med E/e 19.1 Aortic Valve Aortic Valve Ar 1.3 Aortic Valve Ve 0.63 MV RF(C) Value 35 % MV RV(C) Value 57 ml MV VTI(ANNULUS) Time averaged p 40 cm/s VTI 191 mm PG mean 1 mmHg PV Antegrade Flow Acceleration Sl 570 cm/s2 SV (MV) RF Value 163 ml 2D Left Ventricle LVIDd 5.6 cm (3.6-5.2)+* LV ESV 109 ml LVIDs 4.2 cm (2.3-3.9)+* LV ESV 115 ml LngAxd 9.19 cm LVESV BP 113 ml LngAxd 9.28 cm LV EF 46.8 % LV EDV 203 ml LV EF 45.2 % LV EDV 210 ml LV EF BP 45.4 % LVEDV BP 207 ml LV SV 95 ml LngAxs 8.41 cm LV SV 95 ml LngAxs 8.17 cm LV SV BP 94 ml LVPW LVPWd 1.1 cm Ventricular Septum IVSd 1.1 cm Left Atrium LA VOLBP 92.6 ml Aorta Ao Rtd 3.4 cm (zsc 1.8) Ao Asc 3.6 cm (zsc 3.9)* LVOT LVOT 2.2 cm LVOTArea 3.8 cm2 Mitral Valve MV shelli 3.3 cm (2.1-2.7)* Ratios IVS LA Biplane LAVol I BP 48 ml/m2 RA Single Plane Right Atrium MO 8.38 mm Right Atrium Sy 42.1 ml Right Atrium Sy 54.4 mm Right Atrium Sy 21.8 ml/m2 Right Atrium Sy 16.4 cm2 Right Ventricle Right Ventricle 49 mm Right Ventricle 44 mm Major [place] 79 mm MMODE TA Tricuspid Annul 21.4 mm ++++++++++++++++++++++++++++++++++++ WALL MOTION: ++++++++++++++++++++++++++++++++++++ RESTING WALL MOTION: Basal Inferoseptal, Basal Inferior, Basal Inferolateral, Basal Anterolateral hayden are hypokinetic. Normal wall motion in all other hayden. Wall Index = 1.2 <Electronic Signature> 03/30/2025 05:51 PM Torin Miller M.D. us Torin Miller MD ECHO Final Result from Last 3 Months Insurance [employer] Member Subscriber Plan / Payer ( fective 2025-Present) Name:Mauricio Garces Relation to Subscriber:Self Name:Mauricio Garces Payer ID:[id number] (NAIC) Type:Not on file Address: [address] [phone] MEDICARE Care Teams Job Interviewer Relationship Specialty Start Date End Date None, Provider, PCP - General UNKNOWN PHYSICIAN SPECIALTY 11/18/24
--- OUTSIDE RECORDS SUMMARY | 2025-04-09 20:12 | XMS_ITS | CONTINUITY OF CARE DOCUMENT ---
Author Name zach, zach Address Unknown Organization [facility] Address [address] [place] [address] Phone [phone] Care Team Providers [employer] Engineer Name Role Phone Todd Briceno MD Unavailable [phone] SHIKHA VELASQUEZ MD Unavailable [phone] SHIKHA VELASQUEZ MD Unavailable [phone] PROBLEMS Condition Status Date Provider Notes Screen [...] >70% [place], f/w [facility] active Todd Briceno MD ENCOUNTERS Date Type Provider Location Encounter Diag nosis 2 - 2 In-person encounter Office Visit Todd Briceno MD [facility] 3 - 3 In-person encounter Office Visit Todd Briceno MD [facility] Carotid artery disease, 100% occlueded LICA, >70% HEL[place], f/w [facility] 3 - 8 In-person encounter Office Visit Todd Briceno MD [facility] Screen for conditionCAD s/p CABGBioprosthetic aortic [...] Policy type / Coverage type Griselda red republican ID AARP MEDICARE ADVANTAGE HMO-POS HMO [id number] ADVANCE DIRECTIVES Name Date DISCUSSED - NO DECISION MADE TREATMENT PLAN Date Name Performer [id number],S, Todd Madrid ra[place] [id number],S, H is updated medication list for this problem includes: Ezetimibe 10 Mg Tablet (Ezetimibe) ..... Take 1 tablet by mouth once daily Atorvastatin 80 Mg Tablet (Atorvastatin) ..... Take 1 tablet by mouth once a day Todd Briceno MD [id number],S, T he following medications were removed from [...] mouth once a day Todd Briceno MD [id number],S, Todd Madrid ra[place] [id number],S, Todd Madrid ra[place] [id number],S, T he following medications were removed from [...] mouth twice a day Todd Briceno MD [id number],S, B P today: 140/64 P rior BP: [...] mouth twice a day Todd Briceno MD [id number],S, Todd Madrid ra, [place] [id number],S, T he following medications were removed from [...] mouth twice a day Todd Briceno MD [id number],S, Todd Madrid ra, [place] [id number],S, H is updated medication list for this problem includes: Aspirin 325 Mg Tablet (Aspirin) ..... Take 1 tablet by mouth once a day Losartan 50 Mg Tablet (Losartan) ..... Take 1 tablet by mouth once a day Metformin 500 Mg Tablet (Metformin) ..... Take 1 tablet by mouth twice a day Todd Briceno MD [id number],W, Todd Madrid ra, [place] [id number],S, Todd Madrid ra, MD [id number],B, H is updated medication list for this problem includes: Ezetimibe 10 Mg Tablet (Ezetimibe) ..... Take 1 tablet by mouth once a day Atorvastatin 80 Mg Tablet (Atorvastatin) ..... Take 1 tablet by mouth once a day Todd Briceno MD [id number],B, B P today: 108/60 P rior BP: [...] mouth twice a day Todd Briceno MD [id number],S, H is updated medication list for this problem includes: Aspirin 325 Mg Tablet (Aspirin) ..... Take 1 tablet by mouth once a day Metoprolol Tartrate 25 Mg Tablet (Metoprolol tartrate) ..... Take 1/2 tablet by mouth twice a day Todd Briceno MD [id number],STodd ra, MD [id number],C, B P today: 143/68 Todd Briceno MD [id number],B, Todd Madrid ra, MD [id number],STodd ra, MD [id number],S, Todd Madrid ra, MD [id number],S, Todd Madrid ra, MD Cardiology Todd Graff [...] Todd Briceno MD Cardiology Todd Graff Cardiology: H [...]
[2025-04-09 20:28] LABS: Alveolar/Arterial O2 Gradient 9.8 mmHg; Base Excess ABG -0.4 mEq/l (+/-2.0); HCO3 ABG 24.5 mEq/l (22.0-26.0); Oxygen Content ABG 13.6 %vol (16.0-22.0); Oxygen Saturation ABG 96.3 % (95.0-100.0); Oxyhemoglobin 94.8 % THb (90.0-100.0); PCO2 ABG 40.8 mmHg (35.0-45.0); PO2 ABG 83.8 mmHg (80.0-100.0); PO2 FiO2 Ratio Arterial Blood 4.19 %; Total Hemoglobin 10.1 g/dL (12.0-18.0); pH ABG 7.396 (7.350-7.450)
[2025-04-09 20:32] LABS: Device NASAL CANNULA; Fractional Inspired Oxygen 20 %; Modified Allen's Test Pass; Site Drawn RIGHT BRACHIAL
--- NOTE | 2025-04-09 21:03 | PC.NURSE ---
Phlebotomy at bedside.
[2025-04-09 21:23] LABS: Basophils Percent Auto 0.2 % (0.2-1.2); Eosinophils Percent Auto 0.3 % (0-4.4); Hematocrit 31.3 % (42.0-52.0); Hemoglobin 9.4 g/dL (14.0-18.0); Immature Granulocyte Absolute 0.05 K/mm3 (0.00-0.031); Immature Granulocyte Percent A 0.4 % (0-0.5); Lymphocytes Absolute Auto 0.75 K/mm3 (0.9-3.2); Lymphocytes Percent Auto 5.8 % (18.3-44.2); Mean Corpuscular Hemoglobin 31.3 pg (26-34); Mean Corpuscular Volume 104.3 fl (80-100); Monocytes Absolute Auto 1.7 K/mm3 (0.1-0.6); Monocytes Percent Auto 12.9 % (2.6-8.5); Neutrophils Absolute Auto 10.5 K/mm3 (1.3-6.7); Neutrophils Percent Auto 80.4 % (45.5-73.1); Platelet Count Result 224 k/mm3 (150-375); Red Cell Distribution Width 13.2 % (11.5-14.5)
[2025-04-09 21:31] LABS: Lactic Acid Reflex 1.4 mmol/L (0.7-2.0)
[2025-04-09 21:32] LABS: Alanine Aminotransferase 12 U/L (6-50); Albumin Level 3.5 g/dL (3.5-5.1); Alkaline Phosphatase 106 U/L (38-126); Anion Gap 6 mmol/L (4-12); Aspartate Amino Transferase 21 U/L (17-59); Bilirubin,Total 0.6 mg/dL (0.2-1.3); Blood Urea Nitrogen 20 mg/dL (9-20); Calcium 8.5 mg/dL (8.4-10.2); Carbon Dioxide 29 mmol/L (22-30); Chloride 101 mmol/L (98-107); Estimated CRCL calculation 32 ml/min; Estimated Glomerular Filt Rate 44; Glucose 250 mg/dL (65-110); Lipase 27 U/L (23-300); Magnesium 1.7 mg/dL (1.6-2.3); Phosphorus 3.7 mg/dL (2.5-4.5); Potassium 4.6 mmol/L (3.4-5.0); Sodium 136 mmol/L (137-145)
[2025-04-09 21:35] LABS: INR 1.2; Partial Thromboplastin Time 30.5 Seconds (22.3-36.8); Prothrombin Time 15.3 Seconds (11.1-14.7)
[2025-04-09 21:46] LABS: D Dimer 3.77 ug/mL (<0.48)
[2025-04-09 21:50] LABS: NT Pro B Type Natriuretic Pept 5270 pg/mL (19.9-100); Troponin I 0.375 ng/mL (0.000-0.034)
[2025-04-09 22:01] LABS: Add Urine Microscopic? YES; Appearance Urine Turbid (Clear); Bacteria Urine None Seen /hpf; Bilirubin Urine Negative (Negative); Blood Urine 1+ (Negative); Budding Yeast Urine Present /hpf; Color Urine Yellow (Yellow); Glucose Urine UA Negative (Negative); Ketones Urine Negative (Negative); Leukocyte Esterase Ur 3+ LEU/UL (Negative); Need Manual Microscopic Reviewed; Nitrate Urine Negative (Negative); Non Pathogenic Casts 0-2; Protein Urine 1+ mg/dL (Negative); RBC Urine 0-2 /hpf (0-2); Specific Grav Ur 1.014 (1.001-1.035); Squamous Epithelial Cell Urine None Seen /hpf (Few); Urobilinogen Urine 0.2 mg/dL (<2.0); WBC Urine >100 /hpf (0-3); pH Urine 5.5 (5.0-9.0)
[2025-04-09 22:23] LABS: Influenza A QL RT-PCR Negative (Negative); Influenza B QL RT-PCR Negative (Negative); RSV RNA, RT-PCR Negative (Negative); SARS-CoV-2 RNA PCR Negative (Negative)
[2025-04-09] MEDS: LACTATED RINGERS 1,000 ML 999 ML IV CONT ×2 (23:41)
[2025-04-10] VITALS (19 sets, daily range): BP systolic 110–126; BP diastolic 54–68; PULSE 74–103; RESP 12–22; TEMP 36.8–37.2; O2SAT 90–100; BMI 19.8
--- NOTE | 2025-04-10 00:10 | ECG_ITS ---
Test Date: 2025-04-10 00:50:29 Measurements Intervals Howe Rate: 85 P: 47 DC: 173 QRS: -48 QRSD: 130 T: 96 QT: 366 QTc: 437 Interpretive Statements SINUS RHYTHM LEFT ANTERIOR FASCICULAR BLOCK [QRS AXIS <= -45, QR IN I, RS IN II] POSSIBLE ANTERIOR MYOCARDIAL INFARCTION , OF INDETERMINATE AGE [30 ms Q WAVE IN V3/V4, OR R < 0.2 mV IN V4] No previous ECG available for comparison Electronically Signed On 04-10-2025 15:39:29 CDT by Mary Figueroa M.D.
[2025-04-10] MEDS: DOXYCYCLINE 100 MG/NS 100 ML 100 MG/100 ML BAG IVPB ×3 (00:23→23:16)
--- NOTE | 2025-04-10 01:09 | PC.NURSE ---
Report received from ER Nurse Ashanti at 0101.
--- NOTE | 2025-04-10 01:10 | PM.IMHP ---
H&P: HPI History of Present Illness Date/Time: 04/11/25 01:10 Chief Complaint: Low oxygen saturations, chest pain Narrative: 84-year-old male with a past medical history of dementia, coronary artery disease with CABG x2, insulin-dependent diabetes mellitus, hypothyroidism, prior tobacco abuse, CVA and chronic kidney disease among other comorbidities who presented to the ER via EMS from [facility] due to low oxygen saturations, chest pain and vomiting. Majority of information was obtained from [facility] records, EMS report and ER physician report as well as review of past medical records. At the time of my evaluation the patient was alert oriented to person, place, month and the name of the current president but was confused as to the year in could not recall the symptoms that brought him to the hospital. The EMS had reported that a patient was satting in the mid 80s on arrival to the [facility] and he was placed on 3 L oxygen with improvement in O2 sats up to the mid 90s. The patient is not on oxygen at the [facility]. The patient denies any report of coughing or feeling short of breath. He does report left leg pain due which is likely due to his history of sciatica. He openly admits that he a does not know what year it is and has not known the year for a long time. He denies any current nausea vomiting and does not recall vomiting earlier today. He denies any current chest pain and did not recall specific chest pain prior to coming in. His initial troponin in the ER was mildly elevated slightly more so than his baseline from a couple of years ago. He was afebrile since presentation But did have some mild leukocytosis. D-dimer was elevated in the ER and subsequently patient underwent CTA which demonstrated multifocal pneumonia without evidence of pulmonary embolism. Creatinine was elevated in the ER but was within the range of patient's prior renal function. The patient had markedly cloudy urine at the time my evaluation with a pure wick in place. his UA demonstrated 3+ esterase and greater than 100 wbc's with some Yeast present. He denies any dysuria. He has had fair urine output since arrival to the IMU. Patient has ostomy in place that appears to be emptying well. Review of Systems Review of Systems: Review of systems unobtainable due to dementia [facility] Past Medical History Medical History (Updated 04/10/25 @ 05:17 by Rhona Serrano DO) retirement (current) use of insulin Stage 3b chronic kidney disease Atherosclerosis of aorta Type 2 diabetes mellitus with diabetic chronic kidney disease Hypothyroid Hypertensive chronic kidney disease Atherosclerotic heart disease of [place] coronary artery with unspecified angina pectoris Enlarged prostate with lower urinary tract symptoms (LUTS) Type 2 diabetes mellitus with other circulatory complications Personal history of transient ischemic attack (TIA), and cerebral infarction without residual deficits History of rectal cancer LBBB (left bundle branch block) Sinus pause Hydronephrosis, left Hyperlipidemia Surgical History Surgical History (Updated 04/10/25 @ 01:19 by Rhona Serrano DO) History of aortic valve replacement History of left-sided carotid endarterectomy November 15, 2023 Colostomy status With parastomal hernia History of left inguinal hernia repair Repair of left inguinal hernia during colon resection in December 2004 and then repair of recurrent left inguinal hernia with mesh in May 2005. History of coronary artery bypass graft History of colon resection Exploratory laparotomy with abdominoperineal resection as well as a left inguinal hernia repair in December [address] Oliver for rectal cancer. Family History Family History Father Heart disease Mother Heart disease Asthma Sibling Heart disease Social History Social History (Updated 04/10/25 @ 05:07 by Rhona Serrano DO) Social History: The patient is . He and his read different nursing facilities. She is in a memory care unit. He used to work at a [employer] facility but is now retired. Used to smoke up to 2 packs of cigarettes per day for 40 years. He evidently used to drink quite heavily when he was young the but he states that he has not drank in years. He ambulates with a walker. Code status: Full code (per [facility] documentation) surrogate decision maker: Venu (son) Smoking packs per day: 2 Smoking cigarettes per day: 40.0 Years smoked: 40 Smoking pack-years: 80.00 Smoking status: Former smoker Tobacco type: cigarettes Second hand tobacco smoke exposure: Yes Smoking end date: 12/02/96 Alcohol intake: former Substance use: never Substance use type: does not use Do You Feel Safe in your Home?: Yes Lack of Transportation: No Lack of Food: Never True Current Housing: I Have Housing Concerned About Future Housing: No Difficulty Paying Gas/Electric Bills: No Difficulty Paying for Meds: No Currently Unemployed: No Education: High School Diploma/GED Difficulty w/ Childcare or Family Care: No Living arrangements: [facility] Occupation/Education: retired Gender identity (if verbalized by the patient): Male Sexual Orientation (if Verbalized by the Patient): Straight or Heterosexual Spiritual care concerns: No Meds Home Medications and Allergies Home Medications Medication Instructions Recorded Confirmed Type aspirin 81 mg tablet,delayed 81 mg PO DAILY 01/17/21 04/10/25 History release atorvastatin 40 mg tablet 80 mg PO HS 01/17/21 04/10/25 History levothyroxine 75 mcg tablet 75 mcg PO DAILY #90 tabs 02/18/23 04/10/25 Rx insulin glargine 100 unit/mL (3 15 unit subcut BID 06/26/23 04/10/25 History mL) subcutaneous pen clopidogrel 75 mg tablet 75 mg PO DAILY 12/17/23 04/10/25 History tamsulosin 0.4 mg capsule 0.4 mg PO DAILY #90 caps 02/27/24 04/10/25 Rx acetaminophen 325 mg capsule 650 mg PO TID PRN pain 04/10/25 04/10/25 History cyanocobalamin (vitamin B-12) 1,000 mcg PO DAILY 04/10/25 04/10/25 History 1,000 mcg capsule diclofenac sodium 1 % topical gel 2.25 inch topical BID 04/10/25 04/10/25 History ferrous sulfate 325 mg (65 mg 325 mg PO DAILY 04/10/25 04/10/25 History iron) tablet finasteride 5 mg tablet 5 mg PO QAM 04/10/25 04/10/25 History fluoxetine 10 mg capsule 10 mg PO DAILY 04/10/25 04/10/25 History gabapentin 600 mg tablet 600 mg PO TID 04/10/25 04/10/25 History glucagon HCl 1 mg solution for 1 mg IM ONCE 04/10/25 04/10/25 History injection (Glucagon (HCl) Emergency Kit) insulin lispro 100 unit/mL 1 sliding scale dose subcut 04/10/25 04/10/25 History subcutaneous solution (Humalog USEASDIRECTD U-100 Insulin) ondansetron HCl 4 mg tablet 4 mg PO Q6H PRN nausea and vomiting 04/10/25 04/10/25 History sennosides 8.6 mg-docusate sodium 1 tab-cap PO HS 04/10/25 04/10/25 History 50 mg capsule (Senna Plus) tramadol 50 mg tablet 50 mg PO TID 04/10/25 04/10/25 History Allergies Allergy/AdvReac Type Severity Reaction Status Date / Time codeine Allergy Unknown Hives Verified 02/27/24 11:13 doxazosin Allergy Unknown Unknown Verified 02/27/24 11:13 egg Allergy Unknown Nausea Verified 02/27/24 11:13 erythromycin base Allergy Unknown Fever Verified 02/27/24 11:13 Influenza Virus Vaccines Allergy Unknown Unknown Verified 02/27/24 11:13 lisinopril Allergy Unknown Unknown Verified 02/27/24 11:13 metformin Allergy Unknown Unknown Verified 02/27/24 11:13 Penicillins Allergy Unknown Unknown Verified 02/27/24 11:13 Vital Signs Vital Signs - 24 hr 04/09/25 19:33 04/09/25 19:47 04/09/25 19:48 Temperature 99.6 F Pulse Rate 100 Respiratory Rate 18 Blood Pressure 110/58 L Pulse Oximetry 87 L 87 L 95 Oxygen Delivery Room Air Room Air Nasal Cannula Oxygen Flow Rate 2 04/09/25 19:49 04/09/25 19:49 04/09/25 19:52 Temperature Pulse Rate 102 H Respiratory Rate 18 18 Blood Pressure Pulse Oximetry 96 96 Oxygen Delivery Oxygen Flow Rate 2 2 04/09/25 19:59 04/09/25 20:01 04/09/25 20:02 Temperature Pulse Rate 106 H 102 H 101 H Respiratory Rate 17 19 19 Blood Pressure 112/61 Pulse Oximetry 100 100 98 Oxygen Delivery Oxygen Flow Rate 04/09/25 20:47 04/09/25 21:02 04/09/25 21:42 Temperature Pulse Rate 106 H 98 94 Respiratory Rate 15 18 16 Blood Pressure 120/60 Pulse Oximetry 100 99 98 Oxygen Delivery Oxygen Flow Rate 04/09/25 21:45 04/09/25 22:05 04/09/25 23:01 Temperature Pulse Rate 91 91 96 Respiratory Rate 15 14 14 Blood Pressure Pulse Oximetry 100 100 Oxygen Delivery Oxygen Flow Rate 04/09/25 23:15 04/09/25 23:45 04/10/25 00:00 Temperature Pulse Rate 103 H 88 90 Respiratory Rate 16 13 13 Blood Pressure Pulse Oximetry 100 100 Oxygen Delivery Oxygen Flow Rate 04/10/25 00:16 04/10/25 00:30 Temperature Pulse Rate 89 83 Respiratory Rate 12 16 Blood Pressure 110/55 L Pulse Oximetry 100 99 Oxygen Delivery Oxygen Flow Rate Exam Narrative: weight 62.7 kg BMI 19.8 Const: Other: thin body habitus, chronically debilitated, appears stated age HENMT: Other: mucous membranes are dry, upper dentures in place, poor dentition in lower jaw, head is normocephalic atraumatic Eyes: Other: bilateral lens implants noted, positive conjunctival pallor, no scleral icterus Neck: Other: positive JVD, trachea midline, loss of cervical lordosis Resp: Other: crackles at the bases bilaterally, no increased work of breathing Cardio: Other: regular rate, regular rhythm, 2/6 systolic murmur, positive JVD GI: Other: soft, nontender, nondistended, positive bowel sounds, ostomy in the left lower abdomen with green to brown stool in the bag : Other: pure wick catheter in place Skin: Other: generalized pallor, non jaundice Neuro: Other: alert oriented person, place, month ( but was unsure that he actually was corrected) and the name of the president, he is conversational with fluid speech, he has frequent moments of confusion and gives inconsistent report of events both some recent and in the past with different answers to the same question depending on the examiner, no localizing neurologic deficits noted during the course of conversation Extrem: Other: no clubbing, no cyanosis, 1+ pitting edema to the tops of the feet and ankles Psych: Other: pleasantly confused and cooperative, poor judgment and insight H&P: Results Labs Labs: Laboratory Tests 04/09/25 21:16 04/09/25 21:16 04/09/25 04/09/25 04/09/25 20:20 21:16 21:16 WBC 13.0 H RBC 3.00 L Hgb 9.4 L Hct 31.3 L MCV 104.3 H MCH 31.3 MCHC 30.0 L RDW 13.2 Plt Count 224 MPV 10.0 Immature Gran % (Auto) 0.4 Neut % (Auto) 80.4 H Lymph % (Auto) 5.8 L [place] % (Auto) 12.9 H Eos % (Auto) 0.3 Baso % (Auto) 0.2 Lymph # (Auto) 0.75 L [place] # (Auto) 1.7 H Eos # (Auto) 0.0 Baso # (Auto) 0.0 Abs Immat Gran (auto) 0.05 H Absolute Neuts (auto) 10.5 H Absolute Nucleated RBC 0.000 Nucleated RBC % 0.0 PT 15.3 H INR 1.2 APTT 30.5 D-Dimer 3.77 H Puncture Site Right brachial ABG pH 7.396 ABG pCO2 40.8 ABG pO2 83.8 ABG PO2/FiO2 Ratio 4.19 ABG HCO3 24.5 ABG O2 Saturation 96.3 ABG O2 Content 13.6 L ABG Base Excess -0.4 A-a Gradient 9.8 Oxyhemoglobin 94.8 Total Hemoglobin 10.1 L O2 Delivery Device Nasal cannula O2 Liters/Min 2.0 FiO2 20 Sodium 136 L Potassium 4.6 Chloride 101 Carbon Dioxide 29 Anion Gap 6 BUN 20 Creatinine 1.52 H Estim Creat Clear Calc 32 Estimated GFR 44 L Glucose 250 H Lactic Acid 1.4 Calcium 8.5 Phosphorus 3.7 Magnesium 1.7 Total Bilirubin 0.6 AST 21 ALT 12 Alkaline Phosphatase 106 Troponin I 0.375 H* Pending NT-Pro-B Natriuret Pep 5270 H Total Protein 7.0 Albumin 3.5 Lipase 27 Urine Color Urine Appearance Urine pH Ur Specific [place] Urine Protein Urine Glucose (UA) Urine Ketones Ur Blood (Man) Urine Nitrate Urine Bilirubin Urine Urobilinogen Add Ur Microanalysis Leukocyte Esterase Rfl Urine RBC Urine WBC Ur Squamous Epith Cells Urine Bacteria Urine Casts Urine Yeast (Budding) Influenza A (RT-PCR) Influenza B (RT-PCR) RSV (RT-PCR) SARS-CoV-2 RNA (RT-PCR) 04/09/25 21:41 WBC RBC Hgb Hct MCV MCH MCHC RDW Plt Count MPV Immature Gran % (Auto) Neut % (Auto) Lymph % (Auto) [place] % (Auto) Eos % (Auto) Baso % (Auto) Lymph # (Auto) [place] # (Auto) Eos # (Auto) Baso # (Auto) Abs Immat Gran (auto) Absolute Neuts (auto) Absolute Nucleated RBC Nucleated RBC % PT INR APTT D-Dimer Puncture Site ABG pH ABG pCO2 ABG pO2 ABG PO2/FiO2 Ratio ABG HCO3 ABG O2 Saturation ABG O2 Content ABG Base Excess A-a Gradient Oxyhemoglobin Total Hemoglobin O2 Delivery Device O2 Liters/Min FiO2 Sodium Potassium Chloride Carbon Dioxide Anion Gap BUN Creatinine Estim Creat Clear Calc Estimated GFR Glucose Lactic Acid Calcium Phosphorus Magnesium Total Bilirubin AST ALT Alkaline Phosphatase Troponin I NT-Pro-B Natriuret Pep Total Protein Albumin Lipase Urine Color Yellow Urine Appearance Turbid H Urine pH 5.5 Ur Specific [place] 1.014 Urine Protein 1+ H Urine Glucose (UA) Negative Urine Ketones Negative Ur Blood (Man) 1+ H Urine Nitrate Negative Urine Bilirubin Negative Urine Urobilinogen 0.2 Add Ur Microanalysis Reviewed Leukocyte Esterase Rfl 3+ H Urine RBC 0-2 Urine WBC >100 H Ur Squamous Epith Cells None seen Urine Bacteria None seen Urine Casts 0-2 Urine Yeast (Budding) Present H Influenza A (RT-PCR) Negative Influenza B (RT-PCR) Negative RSV (RT-PCR) Negative SARS-CoV-2 RNA (RT-PCR) Negative Impressions Chest X-Ray 04/09/25 20:36 IMPRESSION: Small bilateral pleural effusions with multifocal pneumonia. Chest CTA 04/09/25 22:33 IMPRESSION: No pulmonary embolus. No thoracic aortic dissection. Multifocal pneumonia, as detailed above. EKG: Normal sinus rhythm, left anterior fascicular block, possible anterior MS age indeterminate, rate 85, QTC 437 All imaging and EKGs personally reviewed and interpreted. And unless stated otherwise agree with radiologic and cardiology interpretation. Assessment and Plan Assessment and plan (1) Multifocal pneumonia: Code(s): J18.9 - Pneumonia, unspecified organism Status: Acute (2) Hypoxic respiratory failure: Qualifiers: Chronicity: acute Qualified Code(s): J96.01 - Acute respiratory failure with hypoxia Code(s): J96.91 - Respiratory failure, unspecified with hypoxia Status: Acute (3) Non-STEMI (non-ST elevated myocardial infarction): Code(s): I21.4 - Non-ST elevation (NSTEMI) myocardial infarction Status: Acute (4) Sepsis: Qualifiers: Sepsis type: sepsis due to unspecified organism Sepsis acute organ dysfunction status: with acute organ dysfunction Severe sepsis acute organ dysfunction type: acute respiratory failure Acute respiratory failure type: with hypoxia Severe sepsis shock status: without septic shock Qualified Code(s): A41.9 - Sepsis, unspecified organism; R65.20 - Severe sepsis without septic shock; J96.01 - Acute respiratory failure with hypoxia Code(s): A41.9 - Sepsis, unspecified organism Status: Acute (5) Type 2 diabetes mellitus with hyperglycemia, with long-term current use of insulin: Code(s): E11.65 - Type 2 diabetes mellitus with hyperglycemia; Z79.4 - medical terminologist (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 Patient been placed on empiric antibiotic therapy with Rocephin and doxycycline. Will obtain urine pneumococcal and Legionella . Blood cultures have been obtained and are pending. Will monitor CBC. Will wean oxygen as tolerated. the patient met sepsis criteria and received 30 mL/kilos fluid bolus. He does have some mild JVD but heart rate has improved in besides his chronic mild lower extremity edema appears relatively euvolemic. He does still have some dry mucous membranes. Will encourage oral fluid intake. Will monitor strict I&O's and daily weights. Sepsis criteria met with tachycardia, leukocytosis in the setting of multifocal pneumonia. Patient did have an elevated D-dimer but CTA ruled out pulmonary embolism. The patient did present with chest pain per EMS report but is not having any current chest pain. Patient's troponins do fit criteria for non STEMI. Patient has been started on heparin drip. Will resume the patient's home dual anti-platelet medications, statin therapy and antihypertensives. Patient has type 2 diabetes mellitus with hyperglycemia. Will continue home long-acting insulin and will add moderate sliding scale insulin Accu-Cheks a.c. HS and hypoglycemia protocol. Patient has chronic kidney disease and creatinine is around the patient's baseline. Will repeat electrolyte panel in a.m. and monitor urine output closely. Will avoid nephrotoxic medications. Patient does have megaloblastic anemia. Will check B12 and folic acid level to rule out vitamin deficiency. 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 patient's UA is abnormal but does not appear to be overtly infected. Will await urine cultures. Quality VTE Prophylaxis VTE prophylaxis: pharmacologic ordered ( heparin drip per protocol) Hospitalist MIPS Advance Care Plan I have confirmed that the patient's Advanced Care Plan is present, code status is documented, or surrogate decision maker is listed in patient medical record.: Yes Medication Reconciliation I have utilized all available resources to obtain, update and review the patients current medications (includes all prescriptions, OTC, herbals, cannabis, and nutritional supplements).: Yes
--- NOTE | 2025-04-10 01:26 | ECG_ITS ---
Test Date: 2025-04-10 01:31:08 Measurements Intervals [place] Rate: 89 P: 22 RI: 149 QRS: -52 QRSD: 125 T: 85 QT: 365 QTc: 444 Interpretive Statements SINUS RHYTHM MARKED LEFT AXIS DEVIATION [QRS AXIS < -30] MODERATE INTRAVENTRICULAR CONDUCTION DELAY [105+ ms QRS DURATION, 80+ ms Q/S IN V1/V2, NO Q AND 60+ ms R IN I/aVL/V5/V6] MINIMAL ST DEPRESSION [0.025+ mV ST DEPRESSION] poor r wave progression Electronically Signed On 04-10-2025 15:38:57 CDT by Mary Figueroa M.D.
--- NOTE | 2025-04-10 01:53 | ADMGEN ---
This patient, Mauricio Garces, was admitted to IMU Room 207-01 at 0118. Patient/family oriented to hospital policies and general routines including ID bracelet, bed and alarms, visiting hours, pain management, procedures, bathroom and other care routines, personal items, smoking policy, room service/diet, and visiting hours. Patient arrived to floor with wallet containing $110, upper dentures in mouth, and phone. Patient not sure if her had glasses in the ER; called ER and the nurse states he never had glasses. Information on how to activate the Rapid Response Team has been discussed. Patient/Family are encouraged to report perceived risks to care and to ask questions if they do not understand what they are told or what they should do.
[2025-04-10 03:52] LABS: Procalcitonin 0.2 ng/mL
[2025-04-10 04:01] LABS: MRSA (PCR) NOT DETECTED (NOT DETECTE)
[2025-04-10 04:22] LABS: Basophils Percent Auto 0.2 % (0.2-1.2); Eosinophils Absolute Auto 0.1 K/mm3 (0-0.3); Eosinophils Percent Auto 0.5 % (0-4.4); Hematocrit 30.4 % (42.0-52.0); Hemoglobin 9.2 g/dL (14.0-18.0); Immature Granulocyte Absolute 0.04 K/mm3 (0.00-0.031); Immature Granulocyte Percent A 0.4 % (0-0.5); Lymphocytes Absolute Auto 1.57 K/mm3 (0.9-3.2); Lymphocytes Percent Auto 14.2 % (18.3-44.2); Mean Corpuscular HGB Conc 30.3 g/dl (32-36); Mean Corpuscular Hemoglobin 31.4 pg (26-34); Mean Corpuscular Volume 103.8 fl (80-100); Mean Platelet Volume 10.2 fl (7.4-10.4); Monocytes Percent Auto 18.3 % (2.6-8.5); Neutrophils Absolute Auto 7.3 K/mm3 (1.3-6.7); Neutrophils Percent Auto 66.4 % (45.5-73.1); Platelet Count Result 194 k/mm3 (150-375); Red Blood Count 2.93 M/mm3 (4.6-6.20); Red Cell Distribution Width 13.3 % (11.5-14.5); White Blood Count 11.1 K/mm3 (4.5-10.0)
[2025-04-10 04:34] LABS: Anion Gap 7 mmol/L (4-12); Blood Urea Nitrogen 20 mg/dL (9-20); Calcium 8.5 mg/dL (8.4-10.2); Carbon Dioxide 26 mmol/L (22-30); Chloride 104 mmol/L (98-107); Estimated CRCL calculation 31 ml/min; Estimated Glomerular Filt Rate 48; Glucose 144 mg/dL (65-110); Potassium 4.5 mmol/L (3.4-5.0); Sodium 137 mmol/L (137-145)
--- NOTE | 2025-04-10 04:50 | ECG_ITS ---
Test Date: 2025-04-10 04:59:42 Measurements Intervals [place] Rate: 84 P: 12 MT: 144 QRS: -53 QRSD: 128 T: 95 QT: 369 QTc: 438 Interpretive Statements SINUS RHYTHM LEFT ANTERIOR FASCICULAR BLOCK [QRS AXIS <= -45, QR IN I, RS IN II] NONSPECIFIC ST & T-WAVE ABNORMALITY WARNING: DATA QUALITY MAY AFFECT INTERPRETATION Electronically Signed On 04-10-2025 15:38:03 CDT by Mary Figueroa M.D.
[2025-04-10] MEDS: HEPARIN SOD/D5W 100 UNITS/ML 25,000 UNITS/250 ML BAG 8 UNITS IV CONT (05:36)
[2025-04-10] MEDS: HEPARIN SODIUM 5,000 UNITS/ML VIAL 4000 UNITS IV PUSH (05:36)
[2025-04-10 05:41] LABS: Folic Acid 5.7 ng/mL (2.76->20)
[2025-04-10] MEDS: LEVOTHYROXINE SODIUM 75 MCG TABLET PO (06:13)
[2025-04-10] MEDS: DICLOFENAC SODIUM 1% 100 GM GEL (*BKC) 1 APPLIC TOPICAL ×2 (06:14→21:02)
--- NOTE | 2025-04-10 08:11 | P.CONCA_ITS ---
Assessment and Plan Assessment and plan (1) Non-STEMI (non-ST elevated myocardial infarction): Code(s): I21.4 - Non-ST elevation (NSTEMI) myocardial infarction Status: Acute (2) Hyperlipidemia: Qualifiers: Hyperlipidemia type: unspecified Qualified Code(s): E78.5 - Hyperlipidemia, unspecified Code(s): E78.5 - Hyperlipidemia, unspecified Status: Chronic (3) Atherosclerotic heart disease of [place] coronary artery with unspecified angina pectoris: Qualifiers: [place] vs. transplanted heart: [place] heart Qualified Code(s): I25.119 - Atherosclerotic heart disease of [place] coronary artery with unspecified angina pectoris Code(s): I25.119 - Atherosclerotic heart disease of [place] coronary artery with unspecified angina pectoris Status: Acute Plan Problem list: NSTEMI Pneumonia Plan: -trend troponin to peak -continue aspirin 81 mg daily -continue heparin drip -continue statin -check and replace electrolytes to keep potassium greater than 4 and magnesium greater than 2 History of Present Illness History of Present Illness Consult date/time: 04/10/25 08:11 Reason For Visit: Sepsis/PNA/UTI Narrative: 84-year-old male with history of CAD status post CABG X 2, prior tobacco use, hyperlipidemia, hypertension, hypothyroidism, 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 He was placed on 3 L of oxygen with improvement in oxygenation to the 90s. He reports of left lower extremity pain due to history of sciatica. No current chest pain, shortness of breath, dizziness, lightheadedness, palpitations, orthopnea, PND, presyncope, syncope, cough, emesis. Workup: Creatinine: 1.52 (baseline around 1.5) Troponin: 0.375--2.600--5.960 BNP: 5270 EKG: Sinus rhythm, left anterior fascicular block, possible old anterior infarct-age undetermined Chest x-ray: Small bilateral pleural effusions and multifocal pneumonia. CT chest: No PE, no aortic dissection. Multifocal pneumonia. 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 Enlarged prostate with lower urinary tract symptoms (LUTS) Type 2 diabetes mellitus with other circulatory complications Personal history of transient ischemic attack (TIA), and cerebral infarction without residual deficits History of rectal cancer LBBB (left bundle branch block) Sinus pause Hydronephrosis, left Hyperlipidemia Surgical History Surgical History (Updated 04/10/25 @ 01:19 by Rhona Serrano DO) History of aortic valve replacement History of left-sided carotid endarterectomy November 15, 2023 Colostomy status With parastomal hernia History of left inguinal hernia repair Repair of left inguinal hernia during colon resection in December 2004 and then repair of recurrent left inguinal hernia with mesh in May 2005. History of coronary artery bypass graft History of colon resection Exploratory laparotomy with abdominoperineal resection as well as a left inguinal hernia repair in December [address] Oliver for rectal cancer. Family History Family History Father Heart disease Mother Heart disease Asthma Sibling Heart disease Social History Social History (Updated 04/10/25 @ 05:07 by Rhona Serrano DO) Social History: The patient is . He and his read different nursing facilities. She is in a memory care unit. He used to work at a [employer] facility but is now retired. Used to smoke up to 2 packs of cigarettes per day for 40 years. He evidently used to drink quite heavily when he was young the but he states that he has not drank in years. He ambulates with a walker. Code status: Full code (per correction documentation) surrogate decision maker: Venu (son) Smoking packs per day: 2 Smoking cigarettes per day: 40.0 Years smoked: 40 Smoking pack-years: 80.00 Smoking status: Former smoker Tobacco type: cigarettes Second hand tobacco smoke exposure: Yes Smoking end date: 12/02/96 Alcohol intake: former Substance use: never Substance use type: does not use Do You Feel Safe in your Home?: Yes Lack of Transportation: No Lack of Food: Never True Current Housing: I Have Housing Concerned About Future Housing: No Difficulty Paying Gas/Electric Bills: No Difficulty Paying for Meds: No Currently Unemployed: No Education: High School Diploma/GED Difficulty w/ Childcare or Family Care: No Living arrangements: correction Occupation/Education: retired Gender identity (if verbalized by the patient): Male Sexual Orientation (if Verbalized by the Patient): Straight or Heterosexual Spiritual care concerns: No Meds Home Medications and Allergies Home Medications Medication Instructions Recorded Confirmed Type aspirin 81 mg tablet,delayed 81 mg PO DAILY 01/17/21 04/10/25 History release atorvastatin 40 mg tablet 80 mg PO HS 01/17/21 04/10/25 History levothyroxine 75 mcg tablet 75 mcg PO DAILY #90 tabs 02/18/23 04/10/25 Rx insulin glargine 100 unit/mL (3 15 unit subcut BID 06/26/23 04/10/25 History mL) subcutaneous pen clopidogrel 75 mg tablet 75 mg PO DAILY 12/17/23 04/10/25 History tamsulosin 0.4 mg capsule 0.4 mg PO DAILY #90 caps 02/27/24 04/10/25 Rx acetaminophen 325 mg capsule 650 mg PO TID PRN pain 04/10/25 04/10/25 History cyanocobalamin (vitamin B-12) 1,000 mcg PO DAILY 04/10/25 04/10/25 History 1,000 mcg capsule diclofenac sodium 1 % topical gel 2.25 inch topical BID 04/10/25 04/10/25 History ferrous sulfate 325 mg (65 mg 325 mg PO DAILY 04/10/25 04/10/25 History iron) tablet finasteride 5 mg tablet 5 mg PO QAM 04/10/25 04/10/25 History fluoxetine 10 mg capsule 10 mg PO DAILY 04/10/25 04/10/25 History gabapentin 600 mg tablet 600 mg PO TID 04/10/25 04/10/25 History glucagon HCl 1 mg solution for 1 mg IM ONCE 04/10/25 04/10/25 History injection (Glucagon (HCl) Emergency Kit) insulin lispro 100 unit/mL 1 sliding scale dose subcut 04/10/25 04/10/25 History subcutaneous solution (Humalog USEASDIRECTD U-100 Insulin) ondansetron HCl 4 mg tablet 4 mg PO Q6H PRN nausea and vomiting 04/10/25 04/10/25 History sennosides 8.6 mg-docusate sodium 1 tab-cap PO HS 04/10/25 04/10/25 History 50 mg capsule (Senna Plus) tramadol 50 mg tablet 50 mg PO TID 04/10/25 04/10/25 History Allergies Allergy/AdvReac Type Severity Reaction Status Date / Time codeine Allergy Unknown Hives Verified 02/27/24 11:13 doxazosin Allergy Unknown Unknown Verified 02/27/24 11:13 egg Allergy Unknown Nausea Verified 02/27/24 11:13 erythromycin base Allergy Unknown Fever Verified 02/27/24 11:13 Influenza Virus Vaccines Allergy Unknown Unknown Verified 02/27/24 11:13 lisinopril Allergy Unknown Unknown Verified 02/27/24 11:13 metformin Allergy Unknown Unknown Verified 02/27/24 11:13 Penicillins Allergy Unknown Unknown Verified 02/27/24 11:13 Vital Signs Vital Signs - 24 hr 04/09/25 19:33 04/09/25 19:47 04/09/25 19:48 Temperature 37.6 C Pulse Rate 100 Respiratory Rate 18 Blood Pressure 110/58 L Pulse Oximetry 87 L 87 L 95 Oxygen Delivery Room Air Room Air Nasal Cannula Oxygen Flow Rate 2 04/09/25 19:49 04/09/25 19:49 04/09/25 19:52 Temperature Pulse Rate 102 H Respiratory Rate 18 18 Blood Pressure Pulse Oximetry 96 96 Oxygen Delivery Oxygen Flow Rate 2 2 04/09/25 19:59 04/09/25 20:01 04/09/25 20:02 Temperature Pulse Rate 106 H 102 H 101 H Respiratory Rate 17 19 19 Blood Pressure 112/61 Pulse Oximetry 100 100 98 Oxygen Delivery Oxygen Flow Rate 04/09/25 20:47 04/09/25 21:02 04/09/25 21:42 Temperature Pulse Rate 106 H 98 94 Respiratory Rate 15 18 16 Blood Pressure 120/60 Pulse Oximetry 100 99 98 Oxygen Delivery Oxygen Flow Rate 04/09/25 21:45 04/09/25 22:05 04/09/25 23:01 Temperature Pulse Rate 91 91 96 Respiratory Rate 15 14 14 Blood Pressure Pulse Oximetry 100 100 Oxygen Delivery Oxygen Flow Rate 04/09/25 23:15 04/09/25 23:45 04/10/25 00:00 Temperature Pulse Rate 103 H 88 90 Respiratory Rate 16 13 13 Blood Pressure Pulse Oximetry 100 100 Oxygen Delivery Oxygen Flow Rate 04/10/25 00:16 04/10/25 00:30 04/10/25 01:37 Temperature 37.2 C Pulse Rate 89 83 84 Respiratory Rate 12 16 16 Blood Pressure 110/55 L 112/66 Pulse Oximetry 100 99 99 Oxygen Delivery Oxygen Flow Rate 04/10/25 02:00 04/10/25 02:22 04/10/25 04:00 Temperature Pulse Rate 86 84 Respiratory Rate Blood Pressure Pulse Oximetry 96 95 Oxygen Delivery Nasal Cannula Nasal Cannula Oxygen Flow Rate 2 2 04/10/25 04:00 04/10/25 04:00 04/10/25 06:00 Temperature 37.1 C Pulse Rate 83 83 92 Respiratory Rate 18 Blood Pressure 124/58 L Pulse Oximetry 100 Oxygen Delivery Oxygen Flow Rate Exam 2 Narrative: General: Alert oriented x3, no acute distress Neck: Supple, No JVD Chest: Bilaterally clear to auscultation, no rales or rhonchi Cardiac: S1, S2 +, regular rate, regular rhythm, no murmurs or rubs Extremities: No pedal edema, no skin rash Neurologic: Alert and oriented x3, no focal neurological deficits Results Labs and Meds 04/10/25 04:02 04/10/25 04:02 Lab results: Cardiac Enzymes 04/09/25 04/10/25 04/10/25 Range/Units 21:16 00:34 04:02 AST 21 (17-59) U/L Troponin I 0.375 H* 2.640 H* D 5.960 H* D (0.000-0.034) ng/mL Coagulation 04/09/25 Range/Units 21:16 PT 15.3 H (11.1-14.7) Seconds APTT 30.5 (22.3-36.8) Seconds CBC 04/09/25 04/10/25 Range/Units 21:16 04:02 WBC 13.0 H 11.1 H (4.5-10.0) K/mm3 RBC 3.00 L 2.93 L (4.6-6.20) M/mm3 Hgb 9.4 L 9.2 L (14.0-18.0) g/dL Hct 31.3 L 30.4 L (42.0-52.0) % Plt Count 224 194 (150-375) k/mm3 Lymph # (Auto) 0.75 L 1.57 (0.9-3.2) K/mm3 [place] # (Auto) 1.7 H 2.0 H (0.1-0.6) K/mm3 Eos # (Auto) 0.0 0.1 (0-0.3) K/mm3 Baso # (Auto) 0.0 0.0 (0.0-0.1) K/mm3 Comprehensive Metabolic Panel 04/09/25 04/10/25 Range/Units 21:16 04:02 Sodium 136 L 137 (137-145) mmol/L Potassium 4.6 4.5 (3.4-5.0) mmol/L Chloride 101 104 (98-107) mmol/L Carbon Dioxide 29 26 (22-30) mmol/L BUN 20 20 (9-20) mg/dL Creatinine 1.52 H 1.41 H (0.7-1.3) mg/dL Glucose 250 H 144 H (65-110) mg/dL Calcium 8.5 8.5 (8.4-10.2) mg/dL AST 21 (17-59) U/L ALT 12 (6-50) U/L Alkaline Phosphatase 106 (38-126) U/L Total Protein 7.0 (6.3-8.2) g/dL Albumin 3.5 (3.5-5.1) g/dL Intake and Output 04/09/25 04/10/25 04/10/25 23:59 07:59 15:59 Intake Total 50 Output Total 400 Balance -350 Intake: IV 50 cefTRIAXone 1 GM/NS 50 ML 1 gm 50 In 50 ml @ 100 mls/hr IVPB ONCE STA Rx#:[id number] Output: Urine 400 Patient Weight 04/10/25 23:59 Weight 62.7 kg
[2025-04-10 08:37] LABS: Glucose Point of Care 130 mg/dl (65-105)
[2025-04-10] MEDS: FINASTERIDE 5 MG TABLET PO (09:29)
[2025-04-10] MEDS: GABAPENTIN 300 MG CAPSULE 600 MG PO ×3 (09:29→17:17)
[2025-04-10] MEDS: CYANOCOBALAMIN 1,000 MCG TABLET 1000 MCG PO (09:29)
[2025-04-10] MEDS: ASPIRIN 81 MG ENTERIC TABLET PO (09:29)
[2025-04-10] MEDS: TAMSULOSIN HCL 0.4 MG CAPSULE PO (09:29)
[2025-04-10] MEDS: CLOPIDOGREL BISULFATE 75 MG TABLET PO (09:29)
[2025-04-10] MEDS: FERROUS SULFATE 325 MG TABLET DR PO (09:29)
[2025-04-10] MEDS: INSULIN GLARGINE (*BKC) 100 UNITS/ML 15 UNITS SUB-Q ×2 (09:30→21:06)
[2025-04-10] MEDS: FLUoxetine HCL 10 MG CAPSULE PO (09:30)
[2025-04-10] MEDS: ACETAMINOPHEN 325 MG TABLET 650 MG PO (09:34)
[2025-04-10 11:35] LABS: Glucose Point of Care 147 mg/dl (65-105)
[2025-04-10 11:52] LABS: Partial Thromboplastin Time 84.9 Seconds (22.3-36.8)
--- NOTE | 2025-04-10 17:19 | PM.IMPN ---
Progress Note: A&P Assessment and Plan (1) Multifocal pneumonia: Code(s): J18.9 - Pneumonia, unspecified organism Status: Acute (2) Hypoxic respiratory failure: Qualifiers: Chronicity: acute Qualified Code(s): J96.01 - Acute respiratory failure with hypoxia Code(s): J96.91 - Respiratory failure, unspecified with hypoxia Status: Acute (3) Non-STEMI (non-ST elevated myocardial infarction): Code(s): I21.4 - Non-ST elevation (NSTEMI) myocardial infarction Status: Acute (4) Sepsis: Qualifiers: Acute respiratory failure type: with hypoxia Sepsis acute organ dysfunction status: with acute organ dysfunction Sepsis type: sepsis due to unspecified organism Severe sepsis acute organ dysfunction type: acute respiratory failure Severe sepsis shock status: without septic shock Qualified Code(s): A41.9 - Sepsis, unspecified organism; R65.20 - Severe sepsis without septic shock; J96.01 - Acute respiratory failure with hypoxia Code(s): A41.9 - Sepsis, unspecified organism Status: Acute (5) Type 2 diabetes mellitus with hyperglycemia, with long-term current use of insulin: Code(s): E11.65 - Type 2 diabetes mellitus with hyperglycemia; Z79.4 - oysterman (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 Patient been placed on empiric antibiotic therapy with Rocephin and doxycycline. Will obtain urine pneumococcal and Legionella . Blood cultures have been obtained and are pending. Will monitor CBC. Will wean oxygen as tolerated. the patient met sepsis criteria and received 30 mL/kilos fluid bolus. He does have some mild JVD but heart rate has improved in besides his chronic mild lower extremity edema appears relatively euvolemic. He does still have some dry mucous membranes. Will encourage oral fluid intake. Will monitor strict I&O's and daily weights. Sepsis criteria met with tachycardia, leukocytosis in the setting of multifocal pneumonia. Patient did have an elevated D-dimer but CTA ruled out pulmonary embolism. The patient did present with chest pain per EMS report but is not having any current chest pain. Patient's troponins do fit criteria for non STEMI. Patient has been started on heparin drip. Will resume the patient's home dual anti-platelet medications, statin therapy and antihypertensives. Patient has type 2 diabetes mellitus with hyperglycemia. Will continue home long-acting insulin and will add moderate sliding scale insulin Accu-Cheks a.c. HS and hypoglycemia protocol. Patient has chronic kidney disease and creatinine is around the patient's baseline. Will repeat electrolyte panel in a.m. and monitor urine output closely. Will avoid nephrotoxic medications. Patient does have megaloblastic anemia. Will check B12 and folic acid level to rule out vitamin deficiency. 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 patient's UA is abnormal but does not appear to be overtly infected. Will await urine cultures. 84 y/o male presented with shortness of breath, is found to have multifocal pneumonia being treated with ceftriaxone and Zithromax, will Flagyl to cover for anaerobics, patient stats feeling much better compared to when he arrived, patient has elevated tropes in the range of NSTEMI possibly demand ischemia due to hypoxia due to multifocal pneumonia, patient is being treated with heparin, seen by welding technician and further recommendation to follow, once the patient is clinically stable, will have PT/OT evaluate the patient will benefit going to acute rehab. Subjective Date/time seen: 04/10/25 17:19 Interval history: Low oxygen saturations, chest pain H&P-Narrative: 84-year-old male with a past medical history of dementia, coronary artery disease with CABG x2, insulin-dependent diabetes mellitus, hypothyroidism, prior tobacco abuse, CVA and chronic kidney disease among other comorbidities who presented to the ER via EMS from [facility] due to low oxygen saturations, chest pain and vomiting. Majority of information was obtained from [facility] records, EMS report and ER physician report as well as review of past medical records. At the time of my evaluation the patient was alert oriented to person, place, month and the name of the current president but was confused as to the year in could not recall the symptoms that brought him to the hospital. The EMS had reported that a patient was satting in the mid 80s on arrival to the [facility] and he was placed on 3 L oxygen with improvement in O2 sats up to the mid 90s. The patient is not on oxygen at the [facility]. The patient denies any report of coughing or feeling short of breath. He does report left leg pain due which is likely due to his history of sciatica. He openly admits that he a does not know what year it is and has not known the year for a long time. He denies any current nausea vomiting and does not recall vomiting earlier today. He denies any current chest pain and did not recall specific chest pain prior to coming in. His initial troponin in the ER was mildly elevated slightly more so than his baseline from a couple of years ago. He was afebrile since presentation But did have some mild leukocytosis. D-dimer was elevated in the ER and subsequently patient underwent CTA which demonstrated multifocal pneumonia without evidence of pulmonary embolism. Creatinine was elevated in the ER but was within the range of patient's prior renal function. The patient had markedly cloudy urine at the time my evaluation with a pure wick in place. his UA demonstrated 3+ esterase and greater than 100 wbc's with some Yeast present. He denies any dysuria. He has had fair urine output since arrival to the IMU. Patient has ostomy in place that appears to be emptying well. 84 y/o male presented with shortness of breath, is found to have multifocal pneumonia being treated with ceftriaxone and Zithromax, will Flagyl to cover for anaerobics, patient stats feeling much better compared to when he arrived, patient has elevated tropes in the range of NSTEMI possibly demand ischemia due to hypoxia due to multifocal pneumonia, patient is being treated with heparin, seen by welding technician and further recommendation to follow, once the patient is clinically stable, will have PT/OT evaluate the patient will benefit going to acute rehab. Review of Systems Review of Systems: Review of systems unobtainable due to dementia Exam Narrative: Patient is comfortable, NAD HEENT: eyes are clear and none icteric LUNGS: Bilateral fair entry with rhonchi HEART: RR S1S2 ABD: BS+, Soft and nontender Lower extremities: no edema SKIN: nonjaundiced Neuro: grossly intact. Objective Data Vital Signs Vital Signs: Vital Signs - 24 hr 04/09/25 19:33 04/09/25 19:47 04/09/25 19:48 Temperature 37.6 C Pulse Rate 100 Respiratory Rate 18 Blood Pressure 110/58 L Pulse Oximetry 87 L 87 L 95 Oxygen Delivery Room Air Room Air Nasal Cannula Oxygen Flow Rate 2 04/09/25 19:49 04/09/25 19:49 04/09/25 19:52 Temperature Pulse Rate 102 H Respiratory Rate 18 18 Blood Pressure Pulse Oximetry 96 96 Oxygen Delivery Oxygen Flow Rate 2 2 04/09/25 19:59 04/09/25 20:01 04/09/25 20:02 Temperature Pulse Rate 106 H 102 H 101 H Respiratory Rate 17 19 19 Blood Pressure 112/61 Pulse Oximetry 100 100 98 Oxygen Delivery Oxygen Flow Rate 04/09/25 20:47 04/09/25 21:02 04/09/25 21:42 Temperature Pulse Rate 106 H 98 94 Respiratory Rate 15 18 16 Blood Pressure 120/60 Pulse Oximetry 100 99 98 Oxygen Delivery Oxygen Flow Rate 04/09/25 21:45 04/09/25 22:05 04/09/25 23:01 Temperature Pulse Rate 91 91 96 Respiratory Rate 15 14 14 Blood Pressure Pulse Oximetry 100 100 Oxygen Delivery Oxygen Flow Rate 04/09/25 23:15 04/09/25 23:45 04/10/25 00:00 Temperature Pulse Rate 103 H 88 90 Respiratory Rate 16 13 13 Blood Pressure Pulse Oximetry 100 100 Oxygen Delivery Oxygen Flow Rate 04/10/25 00:16 04/10/25 00:30 04/10/25 01:37 Temperature 37.2 C Pulse Rate 89 83 84 Respiratory Rate 12 16 16 Blood Pressure 110/55 L 112/66 Pulse Oximetry 100 99 99 Oxygen Delivery Oxygen Flow Rate 04/10/25 02:00 04/10/25 02:22 04/10/25 04:00 Temperature Pulse Rate 86 84 Respiratory Rate Blood Pressure Pulse Oximetry 96 95 Oxygen Delivery Nasal Cannula Nasal Cannula Oxygen Flow Rate 2 2 04/10/25 04:00 04/10/25 04:00 04/10/25 06:00 Temperature 37.1 C Pulse Rate 83 83 92 Respiratory Rate 18 Blood Pressure 124/58 L Pulse Oximetry 100 Oxygen Delivery Oxygen Flow Rate 04/10/25 08:00 04/10/25 08:00 04/10/25 08:00 Temperature 37.0 C Pulse Rate 90 103 H Respiratory Rate 22 H Blood Pressure 122/57 L Pulse Oximetry 100 100 Oxygen Delivery Nasal Cannula Oxygen Flow Rate 2 04/10/25 10:00 04/10/25 11:05 04/10/25 12:00 Temperature Pulse Rate 81 Respiratory Rate Blood Pressure Pulse Oximetry 95 95 Oxygen Delivery Nasal Cannula Nasal Cannula Oxygen Flow Rate 2 2 04/10/25 12:00 04/10/25 12:00 04/10/25 14:00 Temperature 37.2 C Pulse Rate 98 97 82 Respiratory Rate 18 Blood Pressure 126/57 L Pulse Oximetry 93 Oxygen Delivery Oxygen Flow Rate 04/10/25 16:00 04/10/25 16:00 04/10/25 16:00 Temperature 36.8 C Pulse Rate 84 87 Respiratory Rate 18 Blood Pressure 122/66 Pulse Oximetry 95 90 Oxygen Delivery Nasal Cannula Oxygen Flow Rate 2 Intake/Output Intake/Output: Intake & Output 04/07/25 04/08/25 04/09/25 04/10/25 23:59 23:59 23:59 23:59 Intake Total 582.7 Output Total 750 Balance -167.3 Meds/Results Medications: Active Medications Generic Name Dose Route Start Last Admin Trade Name Freq PRN Reason Stop Dose Admin Acetaminophen 650 mg 04/10/25 01:22 04/10/25 09:34 Acetaminophen 325 Mg Tablet PO 650 mg Q4H PRN Administration Mild Pain (1-3) or Fever Aspirin 81 mg 04/10/25 09:00 04/10/25 09:29 Aspirin 81 Mg Enteric Tablet PO 81 mg DAILY GIOVANY Administration Atorvastatin Calcium 80 mg 04/10/25 21:00 Atorvastatin 40 Mg Tablet PO [facility] Clopidogrel Bisulfate 75 mg 04/10/25 09:00 04/10/25 09:29 Clopidogrel Bisulfate 75 Mg Tablet PO 75 mg DAILY GIOVANY Administration Cyanocobalamin 1,000 mcg 04/10/25 09:00 04/10/25 09:29 Cyanocobalamin 1,000 Mcg Tablet PO 1,000 mcg DAILY GIOVANY Administration Dextrose 12.5 gm 04/10/25 01:23 Dextrose 50% 25 Gm/50 Ml Syringe IV PUSH PRN PRN Hypoglycemia Protocol Diclofenac Sodium 1 applic 04/10/25 09:00 04/10/25 06:14 Diclofenac Sodium 1% 100 Gm Gel (*Bkc) TOPICAL 1 applic Q12HR GIOVANY Administration Ferrous Sulfate 325 mg 04/10/25 09:00 04/10/25 09:29 Ferrous Sulfate [address] PO 325 mg DAILY GIOVANY Administration Finasteride 5 mg 04/10/25 09:00 04/10/25 09:29 Finasteride 5 Mg Tablet PO 5 mg QAM GIOVANY Administration Fluoxetine HCl 10 mg 04/10/25 09:00 04/10/25 09:30 Fluoxetine Hcl 10 Mg Capsule PO 10 mg DAILY GIOVANY Administration Gabapentin 600 mg 04/10/25 09:00 04/10/25 17:17 Gabapentin 300 Mg Capsule PO 600 mg TID GIOVANY Administration Glucagon 1 mg 04/10/25 01:23 Glucagon For Inj 1 Mg Vial IM PRN PRN Hypoglycemia Protocol Glucose 15 gm 04/10/25 01:23 Glucose Oral Gel 15 Gm Of Glucse In 37.5 Gm Tube PO PRN PRN Hypoglycemia Protocol Heparin Sodium (Porcine) 4,000 units 04/10/25 04:19 Heparin Sodium 5,000 Units/Ml Vial IV PUSH PRN PRN aPTT less than 55 seconds Heparin Sodium (Porcine) 2,500 units 04/10/25 04:19 Heparin Sodium 5,000 Units/Ml Vial IV PUSH PRN PRN aPTT 55 - 70 seconds Ceftriaxone Sodium 1 gm in 50 mls @ 100 mls/hr 04/10/25 21:00 Rocephin 1 Gm/Ns 50 Ml IVPB Q24H GIOVANY Doxycycline Hyclate 100 mg in 100 mls @ 100 mls/hr 04/10/25 12:00 04/10/25 12:09 Vibramycin 100 Mg/Ns 100 Ml IVPB 100 mls/hr Q12H GIOVANY Administration Dextrose 1,000 mls @ 100 mls/hr 04/10/25 01:23 Dextrose 5% 1,000 Ml IVPB PRN PRN Hypoglycemia Protocol Heparin Sodium/Dextrose 25,000 units in 250 mls @ 8 mls/hr 04/10/25 04:20 04/10/25 12:11 Heparin Sodium/D5w 100 Units/Ml IV CONT 800 units/hr .Q24H GIOVANY 8 mls/hr Titration Protocol 800 UNITS/HR Insulin Aspart 3 - 6 units 04/10/25 08:00 04/10/25 17:14 Insulin Aspart (*Bkc) 100 Units/Ml SUB-Q Not Given TIDWM GIOVANY Protocol Insulin Aspart 1 - 3 units 04/10/25 21:00 Insulin Aspart (*Bkc) 100 Units/Ml SUB-Q HS [facility] Protocol Insulin Glargine 15 units 04/10/25 09:00 04/10/25 09:30 Insulin Glargine (*Bkc) 100 Units/Ml SUB-Q 15 units Q12HR GIOVANY Administration Levothyroxine Sodium 75 mcg 04/10/25 06:30 04/10/25 06:13 Levothyroxine Sodium 75 Mcg Tablet PO 75 mcg DAILY@0630 [facility] Administration Senna/Docusate Sodium 1 tab 04/10/25 21:00 Senna/Docusate Sodium Tablet PO HS [facility] Tamsulosin HCl 0.4 mg 04/10/25 09:00 04/10/25 09:29 Tamsulosin Hcl 0.4 Mg Capsule PO 0.4 mg DAILY GIOVANY Administration Tramadol HCl 50 mg 04/10/25 04:21 Tramadol Hcl (*Crx) 50 Mg Tablet PO Q8H PRN pain 4-10 Radiology Results: ITS Impressions Chest X-Ray 04/09/25 20:36 IMPRESSION: Small bilateral pleural effusions with multifocal pneumonia. Chest CTA 04/09/25 22:33 IMPRESSION: No pulmonary embolus. No thoracic aortic dissection. Multifocal pneumonia, as detailed above. Labs Labs: Laboratory Results - last 24 hr 04/09/25 04/09/25 04/09/25 20:20 21:02 21:16 WBC 13.0 H RBC 3.00 L Hgb 9.4 L Hct 31.3 L MCV 104.3 H MCH 31.3 MCHC 30.0 L RDW 13.2 Plt Count 224 MPV 10.0 Immature Gran % (Auto) 0.4 Neut % (Auto) 80.4 H Lymph % (Auto) 5.8 L [place] % (Auto) 12.9 H Eos % (Auto) 0.3 Baso % (Auto) 0.2 Lymph # (Auto) 0.75 L [place] # (Auto) 1.7 H Eos # (Auto) 0.0 Baso # (Auto) 0.0 Abs Immat Gran (auto) 0.05 H Absolute Neuts (auto) 10.5 H Absolute Nucleated RBC 0.000 Nucleated RBC % 0.0 PT 15.3 H INR 1.2 APTT 30.5 D-Dimer 3.77 H Puncture Site Right brachial ABG pH 7.396 ABG pCO2 40.8 ABG pO2 83.8 ABG PO2/FiO2 Ratio 4.19 ABG HCO3 24.5 ABG O2 Saturation 96.3 ABG O2 Content 13.6 L ABG Base Excess -0.4 A-a Gradient 9.8 Oxyhemoglobin 94.8 Total Hemoglobin 10.1 L O2 Delivery Device Nasal cannula O2 Liters/Min 2.0 FiO2 20 Sodium 136 L Potassium 4.6 Chloride 101 Carbon Dioxide 29 Anion Gap 6 BUN 20 Creatinine 1.52 H Estim Creat Clear Calc 32 Estimated GFR 44 L Glucose 250 H POC Capillary Glucose Lactic Acid 1.4 Calcium 8.5 Phosphorus 3.7 Magnesium 1.7 Total Bilirubin 0.6 AST 21 ALT 12 Alkaline Phosphatase 106 Troponin I 0.375 H* NT-Pro-B Natriuret Pep 5270 H Total Protein 7.0 Albumin 3.5 Lipase 27 Vitamin B12 Folate Procalcitonin 0.2 Urine Color Urine Appearance Urine pH Ur Specific [place] Urine Protein Urine Glucose (UA) Urine Ketones Ur Blood (Man) Urine Nitrate Urine Bilirubin Urine Urobilinogen Add Ur Microanalysis Leukocyte Esterase Rfl Urine RBC Urine WBC Ur Squamous Epith Cells Urine Bacteria Urine Casts Urine Yeast (Budding) Nasal MRSA (PCR) Influenza A (RT-PCR) Influenza B (RT-PCR) RSV (RT-PCR) SARS-CoV-2 RNA (RT-PCR) 04/09/25 04/10/25 04/10/25 21:41 00:34 01:49 WBC RBC Hgb Hct MCV MCH MCHC RDW Plt Count MPV Immature Gran % (Auto) Neut % (Auto) Lymph % (Auto) [place] % (Auto) Eos % (Auto) Baso % (Auto) Lymph # (Auto) [place] # (Auto) Eos # (Auto) Baso # (Auto) Abs Immat Gran (auto) Absolute Neuts (auto) Absolute Nucleated RBC Nucleated RBC % PT INR APTT D-Dimer Puncture Site ABG pH ABG pCO2 ABG pO2 ABG PO2/FiO2 Ratio ABG HCO3 ABG O2 Saturation ABG O2 Content ABG Base Excess A-a Gradient Oxyhemoglobin Total Hemoglobin O2 Delivery Device O2 Liters/Min FiO2 Sodium Potassium Chloride Carbon Dioxide Anion Gap BUN Creatinine Estim Creat Clear Calc Estimated GFR Glucose POC Capillary Glucose Lactic Acid Calcium Phosphorus Magnesium Total Bilirubin AST ALT Alkaline Phosphatase Troponin I 2.640 H* D NT-Pro-B Natriuret Pep Total Protein Albumin Lipase Vitamin B12 Folate Procalcitonin Urine Color Yellow Urine Appearance Turbid H Urine pH 5.5 Ur Specific [place] 1.014 Urine Protein 1+ H Urine Glucose (UA) Negative Urine Ketones Negative Ur Blood (Man) 1+ H Urine Nitrate Negative Urine Bilirubin Negative Urine Urobilinogen 0.2 Add Ur Microanalysis Reviewed Leukocyte Esterase Rfl 3+ H Urine RBC 0-2 Urine WBC >100 H Ur Squamous Epith Cells None seen Urine Bacteria None seen Urine Casts 0-2 Urine Yeast (Budding) Present H Nasal MRSA (PCR) Not detected Influenza A (RT-PCR) Negative Influenza B (RT-PCR) Negative RSV (RT-PCR) Negative SARS-CoV-2 RNA (RT-PCR) Negative 04/10/25 04/10/25 04/10/25 04:02 07:54 11:28 WBC 11.1 H RBC 2.93 L Hgb 9.2 L Hct 30.4 L MCV 103.8 H MCH 31.4 MCHC 30.3 L RDW 13.3 Plt Count 194 MPV 10.2 Immature Gran % (Auto) 0.4 Neut % (Auto) 66.4 Lymph % (Auto) 14.2 L [place] % (Auto) 18.3 H Eos % (Auto) 0.5 Baso % (Auto) 0.2 Lymph # (Auto) 1.57 [place] # (Auto) 2.0 H Eos # (Auto) 0.1 Baso # (Auto) 0.0 Abs Immat Gran (auto) 0.04 H Absolute Neuts (auto) 7.3 H Absolute Nucleated RBC 0.000 Nucleated RBC % 0.0 PT INR APTT D-Dimer Puncture Site ABG pH ABG pCO2 ABG pO2 ABG PO2/FiO2 Ratio ABG HCO3 ABG O2 Saturation ABG O2 Content ABG Base Excess A-a Gradient Oxyhemoglobin Total Hemoglobin O2 Delivery Device O2 Liters/Min FiO2 Sodium 137 Potassium 4.5 Chloride 104 Carbon Dioxide 26 Anion Gap 7 BUN 20 Creatinine 1.41 H Estim Creat Clear Calc 31 Estimated GFR 48 L Glucose 144 H POC Capillary Glucose 130 H 147 H Lactic Acid Calcium 8.5 Phosphorus Magnesium Total Bilirubin AST ALT Alkaline Phosphatase Troponin I 5.960 H* D NT-Pro-B Natriuret Pep Total Protein Albumin Lipase Vitamin B12 877.0 Folate 5.7 Procalcitonin Urine Color Urine Appearance Urine pH Ur Specific [place] Urine Protein Urine Glucose (UA) Urine Ketones Ur Blood (Man) Urine Nitrate Urine Bilirubin Urine Urobilinogen Add Ur Microanalysis Leukocyte Esterase Rfl Urine RBC Urine WBC Ur Squamous Epith Cells Urine Bacteria Urine Casts Urine Yeast (Budding) Nasal MRSA (PCR) Influenza A (RT-PCR) Influenza B (RT-PCR) RSV (RT-PCR) SARS-CoV-2 RNA (RT-PCR) 04/10/25 11:32 WBC RBC Hgb Hct MCV MCH MCHC RDW Plt Count MPV Immature Gran % (Auto) Neut % (Auto) Lymph % (Auto) [place] % (Auto) Eos % (Auto) Baso % (Auto) Lymph # (Auto) [place] # (Auto) Eos # (Auto) Baso # (Auto) Abs Immat Gran (auto) Absolute Neuts (auto) Absolute Nucleated RBC Nucleated RBC % PT INR APTT 84.9 H D-Dimer Puncture Site ABG pH ABG pCO2 ABG pO2 ABG PO2/FiO2 Ratio ABG HCO3 ABG O2 Saturation ABG O2 Content ABG Base Excess A-a Gradient Oxyhemoglobin Total Hemoglobin O2 Delivery Device O2 Liters/Min FiO2 Sodium Potassium Chloride Carbon Dioxide Anion Gap BUN Creatinine Estim Creat Clear Calc Estimated GFR Glucose POC Capillary Glucose Lactic Acid Calcium Phosphorus Magnesium Total Bilirubin AST ALT Alkaline Phosphatase Troponin I NT-Pro-B Natriuret Pep Total Protein Albumin Lipase Vitamin B12 Folate Procalcitonin Urine Color Urine Appearance Urine pH Ur Specific [place] Urine Protein Urine Glucose (UA) Urine Ketones Ur Blood (Man) Urine Nitrate Urine Bilirubin Urine Urobilinogen Add Ur Microanalysis Leukocyte Esterase Rfl Urine RBC Urine WBC Ur Squamous Epith Cells Urine Bacteria Urine Casts Urine Yeast (Budding) Nasal MRSA (PCR) Influenza A (RT-PCR) Influenza B (RT-PCR) RSV (RT-PCR) SARS-CoV-2 RNA (RT-PCR) Quality VTE Prophylaxis VTE prophylaxis: pharmacologic ordered ( heparin drip per protocol)
[2025-04-10 18:01] LABS: Glucose Point of Care 130 mg/dl (65-105)
[2025-04-10 18:13] LABS: Partial Thromboplastin Time 70.1 Seconds (22.3-36.8)
[2025-04-10] MEDS: HEPARIN SODIUM 5,000 UNITS/ML VIAL 2500 UNITS IV PUSH (18:24)
[2025-04-10 19:40] LABS: Glucose Point of Care 197 mg/dl (65-105)
[2025-04-10] MEDS: SENNA/DOCUSATE SODIUM TABLET 1 TAB PO (20:51)
[2025-04-10] MEDS: ATORVASTATIN 40 MG TABLET 80 MG PO (20:52)
[2025-04-10 21:04] LABS: Glucose Point of Care 153 mg/dl (65-105)
[2025-04-10] MEDS: metroNIDAZOLE 500 MG TABLET PO (21:07)
[2025-04-11] VITALS (17 sets, daily range): BP systolic 122–141; BP diastolic 58–72; PULSE 80–102; RESP 16–20; TEMP 36.4–36.9; O2SAT 90–100
[2025-04-11 00:05] LABS: Partial Thromboplastin Time 111.9 Seconds (22.3-36.8)
[2025-04-11] MEDS: metroNIDAZOLE 500 MG TABLET PO ×3 (05:22→21:14)
[2025-04-11] MEDS: LEVOTHYROXINE SODIUM 75 MCG TABLET PO (05:30)
[2025-04-11 06:37] LABS: Partial Thromboplastin Time 71.9 Seconds (22.3-36.8)
[2025-04-11 07:45] LABS: Glucose Point of Care 81 mg/dl (65-105)
[2025-04-11 08:33] LABS: Anion Gap 5 mmol/L (4-12); Blood Urea Nitrogen 22 mg/dL (9-20); Calcium 8.3 mg/dL (8.4-10.2); Carbon Dioxide 25 mmol/L (22-30); Chloride 104 mmol/L (98-107); Estimated CRCL calculation 32 ml/min; Estimated Glomerular Filt Rate 49; Glucose 81 mg/dL (65-110); Magnesium 1.7 mg/dL (1.6-2.3); Potassium 3.9 mmol/L (3.4-5.0); Sodium 134 mmol/L (137-145)
[2025-04-11] MEDS: GABAPENTIN 300 MG CAPSULE 600 MG PO ×3 (08:54→17:20)
[2025-04-11] MEDS: FINASTERIDE 5 MG TABLET PO (08:54)
[2025-04-11] MEDS: DICLOFENAC SODIUM 1% 100 GM GEL (*BKC) 1 APPLIC TOPICAL ×2 (08:54→20:38)
[2025-04-11] MEDS: CYANOCOBALAMIN 1,000 MCG TABLET 1000 MCG PO (08:54)
[2025-04-11] MEDS: TAMSULOSIN HCL 0.4 MG CAPSULE PO (08:54)
[2025-04-11] MEDS: CLOPIDOGREL BISULFATE 75 MG TABLET PO (08:54)
[2025-04-11] MEDS: FLUoxetine HCL 10 MG CAPSULE PO (08:54)
[2025-04-11] MEDS: ASPIRIN 81 MG ENTERIC TABLET PO (08:54)
[2025-04-11] MEDS: FERROUS SULFATE 325 MG TABLET DR PO (08:54)
[2025-04-11] MEDS: INSULIN GLARGINE (*BKC) 100 UNITS/ML 15 UNITS SUB-Q ×2 (08:55→20:44)
--- NOTE | 2025-04-11 11:09 | PM.PNCARD ---
Progress Note: A&P Assessment and Plan (1) Non-STEMI (non-ST elevated myocardial infarction): Code(s): I21.4 - Non-ST elevation (NSTEMI) myocardial infarction Status: Acute (2) Hyperlipidemia: Qualifiers: Hyperlipidemia type: unspecified Qualified Code(s): E78.5 - Hyperlipidemia, unspecified Code(s): E78.5 - Hyperlipidemia, unspecified Status: Chronic (3) LBBB (left bundle branch block): Code(s): I44.7 - Left bundle-branch block, unspecified Status: Acute Plan Problem list: NSTEMI- on medical management Pneumonia- on IV antibiotics Plan: -trend troponin to peak -continue aspirin 81 mg daily -continue heparin drip for 48 hours -continue statin -evaluation of coronaries after he recovers from pneumonia -check and replace electrolytes to keep potassium greater than 4 and magnesium greater than 2 Subjective Date/time seen: 04/11/25 11:09 Interval history: Reason for encounter: NSTEMI Relevant history: 84-year-old male with history of CAD status post CABG X 2, prior tobacco use, hyperlipidemia, hypertension, hypothyroidism, 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 He was placed on 3 L of oxygen with improvement in oxygenation to the 90s. He reports of left lower extremity pain due to history of sciatica. Troponin was elevated to 0.375--2.600--5.960, BNP was elevated to 5270, EKG showed sinus rhythm, left anterior fascicular block, possible old anterior infarct-age undetermined, chest x-ray showed small bilateral pleural effusions and multifocal pneumonia, and CT chest was negative for PE, aortic dissection and showed multifocal pneumonia. He was started on IV antibiotics. Interval history: He states that he feels much better today. No current chest pain, shortness of breath, dizziness, lightheadedness, palpitations. Review of Systems Review of Systems: A complete review of systems was performed and pertinent positives are noted in HPI Exam Narrative: General: Alert oriented x3, no acute distress Neck: Supple, No JVD Chest: Bilaterally clear to auscultation, no rales or rhonchi Cardiac: S1, S2 +, regular rate, regular rhythm, no murmurs or rubs Extremities: No pedal edema, no skin rash Neurologic: Alert and oriented x3, no focal neurological deficits Objective Data Vital Signs Vital Signs: Vital Signs - 24 hr 04/10/25 12:00 04/10/25 12:00 04/10/25 12:00 Temperature 37.2 C Pulse Rate 98 97 Respiratory Rate 18 Blood Pressure 126/57 L Pulse Oximetry 95 93 Oxygen Delivery Nasal Cannula Oxygen Flow Rate 2 04/10/25 14:00 04/10/25 16:00 04/10/25 16:00 Temperature Pulse Rate 82 84 Respiratory Rate Blood Pressure Pulse Oximetry 95 Oxygen Delivery Nasal Cannula Oxygen Flow Rate 2 04/10/25 16:00 04/10/25 18:00 04/10/25 20:00 Temperature 36.8 C 36.8 C Pulse Rate 87 94 88 Respiratory Rate 18 18 Blood Pressure 122/66 110/68 Pulse Oximetry 90 96 Oxygen Delivery Oxygen Flow Rate 04/10/25 20:00 04/10/25 20:00 04/10/25 22:10 Temperature Pulse Rate 74 84 Respiratory Rate Blood Pressure Pulse Oximetry 96 Oxygen Delivery Nasal Cannula Oxygen Flow Rate 1 04/10/25 23:20 04/10/25 23:51 04/11/25 00:00 Temperature 36.9 C Pulse Rate 77 84 Respiratory Rate 18 Blood Pressure 110/54 L Pulse Oximetry 100 100 Oxygen Delivery Nasal Cannula Oxygen Flow Rate 1 04/11/25 02:12 04/11/25 04:00 04/11/25 04:00 Temperature 36.8 C Pulse Rate 88 84 Respiratory Rate 20 Blood Pressure 122/58 L Pulse Oximetry 100 100 Oxygen Delivery Nasal Cannula Oxygen Flow Rate 1 04/11/25 04:00 04/11/25 06:00 04/11/25 08:00 Temperature 36.8 C Pulse Rate 98 80 89 Respiratory Rate 16 Blood Pressure 125/62 Pulse Oximetry 90 Oxygen Delivery Oxygen Flow Rate Intake/Output Intake/Output: Intake & Output 04/08/25 04/09/25 04/10/25 04/11/25 23:59 23:59 23:59 23:59 Intake Total 1572.7 468.0 Output Total 1300 700 Balance 272.7 -232.0 Meds/Results Medications: Active Medications Generic Name Dose Route Start Last Admin Trade Name Corie PRN Reason Stop Dose Admin Acetaminophen 650 mg 04/10/25 01:22 04/10/25 09:34 Acetaminophen 325 Mg Tablet PO 650 mg Q4H PRN Administration Mild Pain (1-3) or Fever Aspirin 81 mg 04/10/25 09:00 04/11/25 08:54 Aspirin 81 Mg Enteric Tablet PO 81 mg DAILY GIOVANY Administration Atorvastatin Calcium 80 mg 04/10/25 21:00 04/10/25 20:52 Atorvastatin 40 Mg Tablet PO 80 mg HS GIOVANY Administration Clopidogrel Bisulfate 75 mg 04/10/25 09:00 04/11/25 08:54 Clopidogrel Bisulfate 75 Mg Tablet PO 75 mg DAILY GIOVANY Administration Cyanocobalamin 1,000 mcg 04/10/25 09:00 04/11/25 08:54 Cyanocobalamin 1,000 Mcg Tablet PO 1,000 mcg DAILY GIOVANY Administration Dextrose 12.5 gm 04/10/25 01:23 Dextrose 50% 25 Gm/50 Ml Syringe IV PUSH PRN PRN Hypoglycemia Protocol Diclofenac Sodium 1 applic 04/10/25 09:00 04/11/25 08:54 Diclofenac Sodium 1% 100 Gm Gel (*Bkc) TOPICAL 1 applic Q12HR GIOVANY Administration Ferrous Sulfate 325 mg 04/10/25 09:00 04/11/25 08:54 Ferrous Sulfate [address] PO 325 mg DAILY GIOVANY Administration Finasteride 5 mg 04/10/25 09:00 04/11/25 08:54 Finasteride 5 Mg Tablet PO 5 mg QAM GIOVANY Administration Fluoxetine HCl 10 mg 04/10/25 09:00 04/11/25 08:54 Fluoxetine Hcl 10 Mg Capsule PO 10 mg DAILY GIOVANY Administration Gabapentin 600 mg 04/10/25 09:00 04/11/25 08:54 Gabapentin 300 Mg Capsule PO 600 mg TID GIOVANY Administration Glucagon 1 mg 04/10/25 01:23 Glucagon For Inj 1 Mg Vial IM PRN PRN Hypoglycemia Protocol Glucose 15 gm 04/10/25 01:23 Glucose Oral Gel 15 Gm Of Glucse In 37.5 Gm Tube PO PRN PRN Hypoglycemia Protocol Heparin Sodium (Porcine) 4,000 units 04/10/25 04:19 Heparin Sodium 5,000 Units/Ml Vial IV PUSH PRN PRN aPTT less than 55 seconds Heparin Sodium (Porcine) 2,500 units 04/10/25 04:19 04/10/25 18:24 Heparin Sodium 5,000 Units/Ml Vial IV PUSH 2,500 units PRN PRN Administration aPTT 55 - 70 seconds Ceftriaxone Sodium 1 gm in 50 mls @ 100 mls/hr 04/10/25 21:00 04/10/25 20:48 Rocephin 1 Gm/Ns 50 Ml IVPB 100 mls/hr Q24H GIOVAYN Administration Doxycycline Hyclate 100 mg in 100 mls @ 100 mls/hr 04/10/25 12:00 04/10/25 23:16 Vibramycin 100 Mg/Ns 100 Ml IVPB 100 mls/hr Q12H GIOVANY Administration Dextrose 1,000 mls @ 100 mls/hr 04/10/25 01:23 Dextrose 5% 1,000 Ml IVPB PRN PRN Hypoglycemia Protocol Heparin Sodium/Dextrose 25,000 units in 250 mls @ 8 mls/hr 04/10/25 04:20 04/11/25 07:10 Heparin Sodium/D5w 100 Units/Ml IV CONT 800 units/hr .Q24H GIOVANY 8 mls/hr Titration Protocol 800 UNITS/HR Insulin Aspart 3 - 6 units 04/10/25 08:00 04/11/25 08:54 Insulin Aspart (*Bkc) 100 Units/Ml SUB-Q Not Given TIDWM [facility] Protocol Insulin Aspart 1 - 3 units 04/10/25 21:00 04/10/25 21:01 Insulin Aspart (*Bkc) 100 Units/Ml SUB-Q Not Given HS [facility] Protocol Insulin Glargine 15 units 04/10/25 09:00 04/11/25 08:55 Insulin Glargine (*Bkc) 100 Units/Ml SUB-Q 15 units Q12HR GIOVANY Administration Levothyroxine Sodium 75 mcg 04/10/25 06:30 04/11/25 05:30 Levothyroxine Sodium 75 Mcg Tablet PO 75 mcg DAILY@0630 GIOVANY Administration Metronidazole 500 mg 04/10/25 22:00 04/11/25 05:22 Metronidazole 500 Mg Tablet PO 500 mg Q8HR GIOVANY Administration Senna/Docusate Sodium 1 tab 04/10/25 21:00 04/10/25 20:51 Senna/Docusate Sodium Tablet PO 1 tab HS GIOVANY Administration Tamsulosin HCl 0.4 mg 04/10/25 09:00 04/11/25 08:54 Tamsulosin Hcl 0.4 Mg Capsule PO 0.4 mg DAILY GIOVANY Administration Tramadol HCl 50 mg 04/10/25 04:21 Tramadol Hcl (*Crx) 50 Mg Tablet PO Q8H PRN pain 4-10 Radiology Results: ITS Impressions Chest X-Ray 04/09/25 20:36 IMPRESSION: Small bilateral pleural effusions with multifocal pneumonia. Chest CTA 04/09/25 22:33 IMPRESSION: No pulmonary embolus. No thoracic aortic dissection. Multifocal pneumonia, as detailed above. Labs Labs: Laboratory Results - last 24 hr 04/10/25 04/10/25 04/10/25 11:28 11:32 15:48 APTT 84.9 H Sodium Potassium Chloride Carbon Dioxide Anion Gap BUN Creatinine Estim Creat Clear Calc Estimated GFR Glucose POC Capillary Glucose 147 H 130 H Calcium Magnesium 04/10/25 04/10/25 04/10/25 17:49 19:36 21:00 APTT 70.1 H Sodium Potassium Chloride Carbon Dioxide Anion Gap BUN Creatinine Estim Creat Clear Calc Estimated GFR Glucose POC Capillary Glucose 197 H 153 H Calcium Magnesium 04/10/25 04/11/25 04/11/25 23:41 06:20 07:29 APTT 111.9 H 71.9 H Sodium 134 L Potassium 3.9 Chloride 104 Carbon Dioxide 25 Anion Gap 5 BUN 22 H Creatinine 1.38 H Estim Creat Clear Calc 32 Estimated GFR 49 L Glucose 81 POC Capillary Glucose 81 Calcium 8.3 L Magnesium 1.7
[2025-04-11 11:10] LABS: Glucose Point of Care 156 mg/dl (65-105)
[2025-04-11 12:31] LABS: Partial Thromboplastin Time 53.6 Seconds (22.3-36.8)
[2025-04-11] MEDS: DOXYCYCLINE 100 MG/NS 100 ML 100 MG/100 ML BAG IVPB ×2 (12:38→23:17)
[2025-04-11] MEDS: HEPARIN SODIUM 5,000 UNITS/ML VIAL 4000 UNITS IV PUSH (12:38)
[2025-04-11] MEDS: HEPARIN SOD/D5W 100 UNITS/ML 25,000 UNITS/250 ML BAG 11 UNITS IV CONT (12:39)
--- NOTE | 2025-04-11 12:53 | PC.NURSE ---
Critical Triponin level called to this nurse from lab 2.160. result called to ordering provider, Dr. Ho @ [phone]. no new order recieved. Pt is currently resting in bed with head of bed elevated no s/s of distress noted, O2@2L, denies chest pain and voiced no complaints or concerns at this time. Will continue to monitor. Mao Pineda RN
--- NOTE | 2025-04-11 15:11 | P.PNIM_ITS ---
Progress Note: A&P Assessment and Plan (1) Multifocal pneumonia: Code(s): J18.9 - Pneumonia, unspecified organism Status: Acute (2) Hypoxic respiratory failure: Qualifiers: Chronicity: acute Qualified Code(s): J96.01 - Acute respiratory failure with hypoxia Code(s): J96.91 - Respiratory failure, unspecified with hypoxia Status: Acute (3) Non-STEMI (non-ST elevated myocardial infarction): Code(s): I21.4 - Non-ST elevation (NSTEMI) myocardial infarction Status: Acute (4) Sepsis: Qualifiers: Acute respiratory failure type: with hypoxia Sepsis acute organ dysfunction status: with acute organ dysfunction Sepsis type: sepsis due to unspecified organism Severe sepsis acute organ dysfunction type: acute respiratory failure Severe sepsis shock status: without septic shock Qualified Code(s): A41.9 - Sepsis, unspecified organism; R65.20 - Severe sepsis without septic shock; J96.01 - Acute respiratory failure with hypoxia Code(s): A41.9 - Sepsis, unspecified organism Status: Acute (5) Type 2 diabetes mellitus with hyperglycemia, with long-term current use of insulin: Code(s): E11.65 - Type 2 diabetes mellitus with hyperglycemia; 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 Patient been placed on empiric antibiotic therapy with Rocephin and doxycycline. Will obtain urine pneumococcal and Legionella . Blood cultures have been obtained and are pending. Will monitor CBC. Will wean oxygen as tolerated. the patient met sepsis criteria and received 30 mL/kilos fluid bolus. He does h ave some mild JVD but heart rate has improved in besides his chronic mild lower extremity edema appears relatively euvolemic. He does still have some dry mucous membranes. Will encourage oral fluid intake. Will monitor strict I&O's and daily weights. Sepsis criteria met with tachycardia, leukocytosis in the setting of multifocal pneumonia. Patient did have an elevated D-dimer but CTA ruled out pulmonary embolism. The patient did present with chest pain per EMS report but is not having any current chest pain. Patient's troponins do fit criteria for non STEMI. Patient has been started on heparin drip. Will resume the patient's home dual anti- platelet medications, statin therapy and antihypertensives. Patient has type 2 diabetes mellitus with hyperglycemia. Will continue home long-acting insulin and will add moderate sliding scale insulin Accu-Cheks a.c. HS and hypoglycemia protocol. Patient has chronic kidney disease and creatinine is around the patient's baseline. Will repeat electrolyte panel in a.m. and monitor urine output closely. Will avoid nephrotoxic medications. Patient does have megaloblastic anemia. Will check B12 and folic acid level to rule out vitamin deficiency. 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 patient's UA is abnormal but does not appear to be overtly infected. Will await urine cultures. 84 y/o male presented with shortness of breath, is found to have multifocal pneumonia being treated with ceftriaxone and Zithromax, will Flagyl to cover for anaerobics, patient stats feeling much better compared to when he arrived, patient has elevated tropes in the range of NSTEMI possibly demand ischemia due to hypoxia due to multifocal pneumonia, patient is being treated with heparin for 48hrs, seen by tender labor and further recommendation to follow, once the patient is clinically stable, will have PT/OT evaluate the patient will benefit going to acute rehab. Subjective Date/time seen: 04/11/25 15:11 Interval history: Low oxygen saturations, chest pain H&P-Narrative: 84-year-old male with a past medical history of dementia, coronary artery disease with CABG x2, insulin-dependent diabetes mellitus, hypothyroidism, prior tobacco abuse, CVA and chronic kidney disease among other comorbidities who presented to the ER via EMS from [facility] due to low oxygen saturations, chest pain and vomiting. Majority of information was obtained from [facility] records, EMS report and ER physician report as well as review of past medical records. At the time of my evaluation the patient was alert oriented to person, place, month and the name of the current president but was confused as to the year in could not recall the symptoms that brought him to the hospital. The EMS had reported that a patient was satting in the mid 80s on a rrival to the [place] and he was placed on 3 L oxygen with improvement in O2 sats up to the mid 90s. The patient is not on oxygen at the [facility]. The patient denies any report of coughing or feeling short of breath. He does report left leg pain due which is likely due to his history of sciatica. He openly admits that he a does not know what year it is and has not known the year for a long time. He denies any current nausea vomiting and does not recall vomiting earlier today. He denies any current chest pain and did not recall specific chest pain prior to coming in. His initial troponin in the ER was mildly elevated slightly more so than his baseline from a couple of years ago. He was afebrile since presentation But did have some mild leukocytosis. D- dimer was elevated in the ER and subsequently patient underwent CTA which demonstrated multifocal pneumonia without evidence of pulmonary embolism. Creatinine was elevated in the ER but was within the range of patient's prior renal function. The patient had markedly cloudy urine at the time my evaluation with a pure wick in place. his UA demonstrated 3+ esterase and greater than 100 wbc's with some Yeast present. He denies any dysuria. He has had fair urine output since arrival to the IMU. Patient has ostomy in place that appears to be emptying well. 84 y/o male presented with shortness of breath, is found to have multifocal pneumonia being treated with ceftriaxone and Zithromax, will Flagyl to cover for anaerobics, patient stats feeling much better compared to when he arrived, patient has elevated tropes in the range of NSTEMI possibly demand ischemia due to hypoxia due to multifocal pneumonia, patient is being treated with heparin for 48hrs, seen by tender labor and further recommendation to follow, once the patient is clinically stable, will have PT/OT evaluate the patient will benefit going to acute rehab. Review of Systems Review of Systems: Review of systems unobtainable due to dementia Exam Narrative: Patient is comfortable, NAD HEENT: eyes are clear and none icteric LUNGS: Bilateral fair entry with rhonchi HEART: RR S1S2 ABD: BS+, Soft and nontender Lower extremities: no edema SKIN: nonjaundiced Neuro: grossly intact. Objective Data Vital Signs Vital Signs: Vital Signs - 24 hr 05/10/25 16:00 04/10/25 16:00 04/10/25 16:00 Temperature 36.8 C Pulse Rate 84 87 Respiratory Rate 18 Blood Pressure 122/66 Pulse Oximetry 95 90 Oxygen Delivery Nasal Cannula Oxygen Flow Rate 2 04/10/25 18:00 04/10/25 20:00 04/10/25 20:00 Temperature 36.8 C Pulse Rate 94 88 74 Respiratory Rate 18 Blood Pressure 110/68 Pulse Oximetry 96 Oxygen Delivery Oxygen Flow Rate 04/10/25 20:00 04/10/25 22:10 04/10/25 23:20 Temperature 36.9 C Pulse Rate 84 77 Respiratory Rate 18 Blood Pressure 110/54 L Pulse Oximetry 96 100 Oxygen Delivery Nasal Cannula Oxygen Flow Rate 1 04/10/25 23:51 04/11/25 00:00 04/11/25 02:12 Temperature Pulse Rate 84 88 Respiratory Rate Blood Pressure Pulse Oximetry 100 Oxygen Delivery Nasal Cannula Oxygen Flow Rate 1 04/11/25 04:00 04/11/25 04:00 04/11/25 04:00 Temperature 36.8 C Pulse Rate 84 98 Respiratory Rate 20 Blood Pressure 122/58 L Pulse Oximetry 100 100 Oxygen Delivery Nasal Cannula Oxygen Flow Rate 1 04/11/25 06:00 04/11/25 08:00 04/11/25 08:00 Temperature 36.8 C Pulse Rate 80 89 Respiratory Rate 16 Blood Pressure 125/62 Pulse Oximetry 90 90 Oxygen Delivery Nasal Cannula Oxygen Flow Rate 1 04/11/25 08:00 04/11/25 10:00 04/11/25 11:29 Temperature Pulse Rate 98 84 Respiratory Rate Blood Pressure Pulse Oximetry Oxygen Delivery Nasal Cannula Oxygen Flow Rate 2 04/11/25 11:33 04/11/25 12:00 04/11/25 12:00 Temperature 36.9 C Pulse Rate 82 102 H Respiratory Rate 16 Blood Pressure 136/69 Pulse Oximetry 98 98 Oxygen Delivery Nasal Cannula Oxygen Flow Rate 2 04/11/25 14:00 Temperature Pulse Rate 83 Respiratory Rate Blood Pressure Pulse Oximetry Oxygen Delivery Oxygen Flow Rate Intake/Output Intake/Output: Intake & Output 04/08/25 04/09/25 04/10/25 04/11/25 23:59 23:59 23:59 23:59 Intake Total 1572.7 847.3 Output Total 1300 700 Balance 272.7 147.3 Meds/Results Medications: Active Medications Generic Name Dose Route Start Last Admin Trade Name Freq PRN Reason Stop Dose Admin Acetaminophen 650 mg 04/10/25 01:22 04/10/25 09:34 Acetaminophen 325 Mg Tablet PO 650 mg Q4H PRN Administration Mild Pain (1-3) or Fever Aspirin 81 mg 04/10/25 09:00 04/11/25 08:54 Aspirin 81 Mg Enteric Tablet PO 81 mg DAILY GIOVANY Administration Atorvastatin Calcium 80 mg 04/10/25 21:00 04/10/25 20:52 Atorvastatin 40 Mg Tablet PO 80 mg HS GIOVANY Administration Clopidogrel Bisulfate 75 mg 04/10/25 09:00 04/11/25 08:54 Clopidogrel Bisulfate 75 Mg Tablet PO 75 mg DAILY GIOVANY Administration Cyanocobalamin 1,000 mcg 04/10/25 09:00 04/11/25 08:54 Cyanocobalamin 1,000 Mcg Tablet PO 1,000 mcg DAILY GIOVANY Administration Dextrose 12.5 gm 04/10/25 01:23 Dextrose 50% 25 Gm/50 Ml Syringe IV PUSH PRN PRN Hypoglycemia Protocol Diclofenac Sodium 1 applic 04/10/25 09:00 04/11/25 08:54 Diclofenac Sodium 1% 100 Gm Gel (*Bkc) TOPICAL 1 applic Q12HR GIOVANY Administration Ferrous Sulfate 325 mg 04/10/25 09:00 04/11/25 08:54 Ferrous Sulfate [address] PO 325 mg DAILY GIOVANY Administration Finasteride 5 mg 04/10/25 09:00 04/11/25 08:54 Finasteride 5 Mg Tablet PO 5 mg QAM GIOVANY Administration Fluoxetine HCl 10 mg 04/10/25 09:00 04/11/25 08:54 Fluoxetine Hcl 10 Mg Capsule PO 10 mg DAILY GIOVANY Administration Gabapentin 600 mg 04/10/25 09:00 04/11/25 12:38 Gabapentin 300 Mg Capsule PO 600 mg TID GIOVANY Administration Glucagon 1 mg 04/10/25 01:23 Glucagon For Inj 1 Mg Vial IM PRN PRN Hypoglycemia Protocol Glucose 15 gm 04/10/25 01:23 Glucose Oral Gel 15 Gm Of Glucse In 37.5 Gm Tube PO PRN PRN Hypoglycemia Protocol Heparin Sodium (Porcine) 4,000 units 04/10/25 04:19 04/11/25 12:38 Heparin Sodium 5,000 Units/Ml Vial IV PUSH 4,000 units PRN PRN Administration aPTT less than 55 seconds Heparin Sodium (Porcine) 2,500 units 04/10/25 04:19 04/10/25 18:24 Heparin Sodium 5,000 Units/Ml Vial IV PUSH 2,500 units PRN PRN Administration aPTT 55 - 70 seconds Ceftriaxone Sodium 1 gm in 50 mls @ 100 mls/hr 04/10/25 21:00 04/10/25 20:48 Rocephin 1 Gm/Ns 50 Ml IVPB 100 mls/hr Q24H GIOVANY Administration Doxycycline Hyclate 100 mg in 100 mls @ 100 mls/hr 04/10/25 12:00 04/11/25 12:38 Vibramycin 100 Mg/Ns 100 Ml IVPB 100 mls/hr Q12H GIOVANY Administration Dextrose 1,000 mls @ 100 mls/hr 04/10/25 01:23 Dextrose 5% 1,000 Ml IVPB PRN PRN Hypoglycemia Protocol Heparin Sodium/Dextrose 25,000 units in 250 mls @ 11 mls/hr 04/10/25 04:20 04/11/25 12:39 Heparin Sodium/D5w 100 Units/Ml IV CONT 1,100 units/hr .[id number] GIOVANY 11 mls/hr Administration Protocol 1,100 UNITS/HR Insulin Aspart 3 - 6 units 04/10/25 08:00 04/11/25 11:16 Insulin Aspart (*Bkc) 100 Units/Ml SUB-Q Not Given TIDWM [facility] Protocol Insulin Aspart 1 - 3 units 04/10/25 21:00 04/10/25 21:01 Insulin Aspart (*Bkc) 100 Units/Ml SUB-Q Not Given HS [facility] Protocol Insulin Glargine 15 units 04/10/25 09:00 04/11/25 08:55 Insulin Glargine (*Bkc) 100 Units/Ml SUB-Q 15 units Q12HR GIOVANY Administration Levothyroxine Sodium 75 mcg 04/10/25 06:30 04/11/25 05:30 Levothyroxine Sodium 75 Mcg Tablet PO 75 mcg DAILY@0630 [facility] Administration Metronidazole 500 mg 04/10/25 22:00 04/11/25 14:20 Metronidazole 500 Mg Tablet PO 500 mg Q8HR GIOVANY Administration Senna/Docusate Sodium 1 tab 04/10/25 21:00 04/10/25 20:51 Senna/Docusate Sodium Tablet PO 1 tab HS GIOVANY Administration Tamsulosin HCl 0.4 mg 04/10/25 09:00 04/11/25 08:54 Tamsulosin Hcl 0.4 Mg Capsule PO 0.4 mg DAILY GIOVANY Administration Tramadol HCl 50 mg 04/10/25 04:21 Tramadol Hcl (*Crx) 50 Mg Tablet PO Q8H PRN pain 4-10 Radiology Results: ITS Impressions Chest X-Ray 04/09/25 20:36 IMPRESSION: Small bilateral pleural effusions with multifocal pneumonia. Chest CTA 04/09/25 22:33 IMPRESSION: No pulmonary embolus. No thoracic aortic dissection. Multifocal pneumonia, as detailed above. Labs Labs: Laboratory Results - last 24 hr 04/10/25 04/10/25 04/10/25 15:48 17:49 19:36 APTT 70.1 H Sodium Potassium Chloride Carbon Dioxide Anion Gap BUN Creatinine Estim Creat Clear Calc Estimated GFR Glucose POC Capillary Glucose 130 H 197 H Calcium Magnesium Troponin I 04/10/25 04/10/25 04/11/25 21:00 23:41 06:20 APTT 111.9 H 71.9 H Sodium 134 L Potassium 3.9 Chloride 104 Carbon Dioxide 25 Anion Gap 5 BUN 22 H Creatinine 1.38 H Estim Creat Clear Calc 32 Estimated GFR 49 L Glucose 81 POC Capillary Glucose 153 H Calcium 8.3 L Magnesium 1.7 Troponin I 04/11/25 04/11/25 04/11/25 07:29 11:08 12:11 APTT 53.6 H Sodium Potassium Chloride Carbon Dioxide Anion Gap BUN Creatinine Estim Creat Clear Calc Estimated GFR Glucose POC Capillary Glucose 81 156 H Calcium Magnesium Troponin I 2.160 H* Quality VTE Prophylaxis VTE prophylaxis: pharmacologic ordered ( heparin drip per protocol)
[2025-04-11 15:44] LABS: Glucose Point of Care 186 mg/dl (65-105)
[2025-04-11 18:32] LABS: Partial Thromboplastin Time 112.9 Seconds (22.3-36.8)
[2025-04-11] MEDS: ATORVASTATIN 40 MG TABLET 80 MG PO (20:33)
[2025-04-11] MEDS: SENNA/DOCUSATE SODIUM TABLET 1 TAB PO (20:33)
[2025-04-11 20:42] LABS: Glucose Point of Care 210 mg/dl (65-105)
[2025-04-11] MEDS: INSULIN ASPART (*BKC) 100 UNITS/ML SUB-Q (20:45)
[2025-04-12] VITALS (21 sets, daily range): BP systolic 114–137; BP diastolic 42–74; PULSE 80–104; RESP 16–24; TEMP 36.4–37; O2SAT 90–99
--- NOTE | 2025-04-12 | ECHO_ITS ---
Patient Info Name: Mauricio Garces Age: 84 years : 1940 Gender: Male Ht: 70 in Wt: 145 lbs BSA: 1.80 m2 HR: 88 bpm BP: 137 / 72 mmHg Heart Rhythm: Sinus Rhythm Technical Quality: Fair, Good Exam Date: 04/12/2025 1:55 PM Exam Location: Echo Lab Patient Status: Inpatient Admit Date: 04/10/2025 Staff Ordering Physician: Manjeet Vance MD (kannan/[email or web address]) Bulb Sorter: Franci Alexander RDCS Attending Provider: Rhona Serrano DO Exam Type: CA echo dop color flow w con Study Info Indications - Troponin Complete two-dimensional, color flow and Doppler transthoracic echocardiogram is performed with contrast to opacify the left ventricle and to improve the deliniation of the left ventricle endocardial borders. Contrast/Agitated Saline Contrast/Ag. Saline: Definity Amount: 2.00 ml Existing IV Access: Yes IV Access Condition: patent with no signs of infiltration Summary 1. Left ventricular chamber dimension is normal. 2. Left ventricular systolic function is moderately reduced, estimated at 35-40%. 3. There is mildly increased left ventricular wall thickness. 4. The left ventricular diastolic function is grade II diastolic dysfunction. 5. Right ventricular chamber dimension is mildly enlarged. 6. Right ventricular systolic function is reduced. 7. Left atrial chamber dimension is severely enlarged. 8. 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 9. There is moderate mitral valve regurgitation. Severity of the regurgitation may be underestimated due to eccentricity of the jet. 10. There is mild tricuspid valve regurgitation. 11. P 12. ulmonary hypertension, estimated pulmonary arterial systolic pressure is 46 mmHg. Left Ventricle Left ventricular chamber dimension is normal. Left ventricular systolic function is moderately reduced, estimated at 35-40%. There is mildly increased left ventricular wall thickness. The left ventricular diastolic function is grade II diastolic dysfunction. Right Ventricle Right ventricular chamber dimension is mildly enlarged. Right ventricular systolic function is reduced. Left Atria Left atrial chamber dimension is severely enlarged. Right Atria Right atrial chamber dimension is normal. Atrial Septum Intact interatrial septum visualized by color flow imaging. 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 There is no regurgitation of the bioprosthetic aortic valve. Pulmonic Valve The pulmonic valve is not well visualized. There is trace pulmonic regurgitation. Mitral Valve There is moderate mitral valve regurgitation. Severity of the regurgitation may be underestimated due to eccentricity of the jet. The mitral valve annulus is moderately calcified. Tricuspid Valve There is mild tricuspid valve regurgitation. P ulmonary hypertension, estimated pulmonary arterial systolic pressure is 46 mmHg. Pericardium/Pleural There is no pericardial effusion. Inferior Vena Cava Dilated inferior vena cava with <50% collapse upon inspiration consistent with elevated right atrial pressure, 15 mmHg. Aorta The aortic root size at the sinus of Valsalva is normal. Left Ventricular Outflow Tract Name Value Normal LVOT 2D LVOT Diameter 2.03 cm LVOT Doppler LVOT Peak Gradient 3 mmHg LVOT Mean Gradient 1 mmHg LVOT VTI 17.81 cm LVOT VTI/AV VTI Ratio 0.50 LVOT Stroke Volume 57.37 ml LVOT CO 10.31 l/min LVOT CI 5.74 L/min/m2 Pulmonic Valve Name Value Normal PV Doppler PV Peak Gradient 2 mmHg Mitral Valve Name Value Normal MV Doppler MV Decel [place] 987.79 cm/s2 MV PHT 0 s MV Area (PHT) 5.18 cm2 4.00-5.00 MV Diastolic Function MV E Peak Velocity 144.65 cm/s MV A Peak Velocity 77.79 cm/s MV E/A 1.86 MV Decel Time 0 s MV Annular TDI MV E/e' (Septal) 32.84 <=8.00 MV E/e' (Lateral) 18.98 <=8.00 MV E/e' (Average) 25.91 Tricuspid Valve Name Value Normal TV Regurgitation Doppler TR Peak Velocity 279.45 cm/s TR Peak Gradient 31 mmHg Estimated PAP/RSVP RA Pressure 15 mmHg <=5 PA Systolic Pressure 46 mmHg <36 RV Systolic Pressure 46 mmHg <36 Aorta Name Value Normal Ascending Aorta Ao Root Diameter (MM) 3.66 cm Ao Root Diam Index (MM) 2.04 cm/m2 Aortic Valve Name Value Normal AV Doppler AV Peak Velocity 198.81 cm/s AV Peak Gradient 16 mmHg AV Mean Gradient 10 mmHg AV VTI 35.43 cm AV Area (Cont Eq VTI) 1.62 cm2 >=3.00 AV Area (Cont Eq Paul) 1.30 cm2 AV Regurgitation 2D LVOT Area 3.22 cm2 Ventricles Name Value Normal LV Dimensions 2D/MM IVS Diastolic Thickness (2D) 1.00 cm 0.60-1.00 LVID Diastole (2D) 5.75 cm 4.20-5.80 LVIW Diastolic Thickness (2D) 1.02 cm 0.60-1.00 LVID Systole (2D) 4.64 cm 2.50-4.00 LVOT Diameter 2.03 cm LV Mass (2D Cubed) 233.20 g 88.00-224.00 LV Mass Index (2D Cubed) 0.01 g/cm2 0.00-0.01 Relative Wall Thickness (2D) 0.36 LV Fractional Shortening/Ejection Fraction 2D/MM LV Fractional Shortening (2D) 19 % 25-43 LV EF (2D Teicholz) 39 % 52-72 LV Diastolic Volume (4C MOD) 167.72 ml LV EF (4C MOD) 39 % LV Diastolic Volume (2C MOD) 173.78 ml LV EF (2C MOD) 36 % LV Diastolic Volume (BP MOD) 174.42 ml 62.00-150.00 LV Diastolic Volume Index (BP MOD) 0.10 l/m2 0.03-0.07 LV Systolic Volume (BP MOD) 108.36 ml 21.00-61.00 LV Systolic Volume Index (BP MOD) 0.06 l/m2 0.01-0.03 LV EF (BP MOD) 38 % 52-72 LV Diastolic Length (4C) 8.85 cm LV Systolic Length (4C) 8.15 cm LV Stroke Volume (4C MOD) 65.51 ml RV Dimensions 2D/MM RVID Diastole (2D) 5.29 cm 2.50-3.50 Atria Name Value Normal LA Dimensions LA Dimension (MM) 3.83 cm 3.00-4.10 LA Volume (4C A-L) 82.89 ml LA Volume (BP A-L) 119.70 ml RA Dimensions RA Area (4C) 15.92 cm2 <=18.00 Report Signatures
[2025-04-12 01:54] LABS: Partial Thromboplastin Time 94.2 Seconds (22.3-36.8)
[2025-04-12] MEDS: LEVOTHYROXINE SODIUM 75 MCG TABLET PO (05:34)
[2025-04-12] MEDS: metroNIDAZOLE 500 MG TABLET PO ×3 (05:34→21:09)
[2025-04-12 06:31] LABS: Basophils Percent Auto 0.2 % (0.2-1.2); Eosinophils Absolute Auto 0.1 K/mm3 (0-0.3); Eosinophils Percent Auto 1.3 % (0-4.4); Hematocrit 27.6 % (42.0-52.0); Hemoglobin 8.5 g/dL (14.0-18.0); Immature Granulocyte Absolute 0.06 K/mm3 (0.00-0.031); Immature Granulocyte Percent A 0.6 % (0-0.5); Lymphocytes Absolute Auto 1.67 K/mm3 (0.9-3.2); Lymphocytes Percent Auto 15.7 % (18.3-44.2); Mean Corpuscular HGB Conc 30.8 g/dl (32-36); Mean Corpuscular Hemoglobin 31.1 pg (26-34); Mean Corpuscular Volume 101.1 fl (80-100); Mean Platelet Volume 10.2 fl (7.4-10.4); Monocytes Absolute Auto 1.9 K/mm3 (0.1-0.6); Monocytes Percent Auto 18.3 % (2.6-8.5); Neutrophils Absolute Auto 6.8 K/mm3 (1.3-6.7); Neutrophils Percent Auto 63.9 % (45.5-73.1); Platelet Count Result 186 k/mm3 (150-375); Red Blood Count 2.73 M/mm3 (4.6-6.20); Red Cell Distribution Width 13.1 % (11.5-14.5); White Blood Count 10.6 K/mm3 (4.5-10.0)
[2025-04-12 06:41] LABS: Anion Gap 6 mmol/L (4-12); Blood Urea Nitrogen 23 mg/dL (9-20); Calcium 8.7 mg/dL (8.4-10.2); Carbon Dioxide 26 mmol/L (22-30); Chloride 104 mmol/L (98-107); Estimated CRCL calculation 34 ml/min; Estimated Glomerular Filt Rate 51; Glucose 89 mg/dL (65-110); Magnesium 1.6 mg/dL (1.6-2.3); Potassium 3.6 mmol/L (3.4-5.0); Sodium 136 mmol/L (137-145)
[2025-04-12 07:01] LABS: Partial Thromboplastin Time 84.7 Seconds (22.3-36.8)
[2025-04-12 07:18] LABS: Glucose Point of Care 97 mg/dl (65-105)
--- NOTE | 2025-04-12 08:41 | ECG_ITS ---
Test Date: 2025-04-12 09:04:04 Measurements Intervals [place] Rate: 80 P: 4 AL: 163 QRS: -50 QRSD: 138 T: 96 QT: 354 QTc: 411 Interpretive Statements SINUS RHYTHM LEFT AXIS DEVIATION [QRS AXIS < -30] INTRAVENTRICULAR CONDUCTION DELAY [130+ ms QRS DURATION] BASELINE ARTIFACT LIMITS INTERPRETATION Compared to ECG 04/10/2025 04:59:42 NO SIGNIFICANT CHANGES Electronically Signed On 04-13-2025 14:21:01 CDT by Yina Bauer M.D.
[2025-04-12] MEDS: TAMSULOSIN HCL 0.4 MG CAPSULE PO (08:52)
[2025-04-12] MEDS: FERROUS SULFATE 325 MG TABLET DR PO (08:52)
[2025-04-12] MEDS: DICLOFENAC SODIUM 1% 100 GM GEL (*BKC) 1 APPLIC TOPICAL ×2 (08:52→21:10)
[2025-04-12] MEDS: ASPIRIN 81 MG ENTERIC TABLET PO (08:52)
[2025-04-12] MEDS: FLUoxetine HCL 10 MG CAPSULE PO (08:52)
[2025-04-12] MEDS: FINASTERIDE 5 MG TABLET PO (08:52)
[2025-04-12] MEDS: GABAPENTIN 300 MG CAPSULE 600 MG PO ×3 (08:52→17:21)
[2025-04-12] MEDS: CYANOCOBALAMIN 1,000 MCG TABLET 1000 MCG PO (08:52)
[2025-04-12] MEDS: CLOPIDOGREL BISULFATE 75 MG TABLET PO (08:52)
[2025-04-12] MEDS: INSULIN GLARGINE (*BKC) 100 UNITS/ML 15 UNITS SUB-Q ×2 (08:53→21:10)
[2025-04-12] MEDS: NITROGLYCERIN SL 0.4 MG TABLET SUBLINGUAL (08:53)
--- NOTE | 2025-04-12 09:17 | PCPTNOTE ---
HOLD PT evaluation; 910: discussed pt with MAVIS Olivas, she stated to hold PT eval this AM, pt reporting chest pain.
--- NOTE | 2025-04-12 09:38 | P.PNCA_ITS ---
Progress Note: A&P Assessment and Plan (1) Non-STEMI (non-ST elevated myocardial infarction): Code(s): I21.4 - Non-ST elevation (NSTEMI) myocardial infarction Status: Acute (2) Hyperlipidemia: Qualifiers: Hyperlipidemia type: unspecified Qualified Code(s): E78.5 - Hyperlipidemia, unspecified Code(s): E78.5 - Hyperlipidemia, unspecified Status: Chronic (3) LBBB (left bundle branch block): Code(s): I44.7 - Left bundle-branch block, unspecified Status: Acute Plan Problem list: NSTEMI- on medical management Pneumonia- on IV antibiotics Chest pain Plan: -troponin peaked at 5.9 -continue aspirin 81 mg daily -Will discontinue heparin drip as he has been on it for 48 hours -continue statin -Complained of right sided chest pain this morning. Pain is atypical and reproducible. Did not improve with nitro. Will obtain another EKG as the tracing with a.m. EKG had a lot of artifact. EKG read out as acute [place], however, on my personal review I do not see any ST changes that meet STEMI criteria. 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 He was placed on 3 L of oxygen with improvement in oxygenation to the 90s. He reports of left lower extremity pain due to history of sciatica. Troponin was elevated to 0.375--2.600--5.960, BNP was elevated to 5270, EKG showed sinus rhythm, left anterior fascicular block, possible old anterior infarct-age undetermined, chest x-ray showed small bilateral pleural effusions and multifocal pneumonia, and CT chest was negative for PE, aortic dissection and showed multifocal pneumonia. He was started on IV antibiotics. Interval history: He states that he feels much better today. No current chest pain, shortness of breath, dizziness, lightheadedness, palpitations. 04/12/2025: States he had right sided chest pain lat night and this morning. He describes the pain as a constant ache. He has no other complaints. Review of Systems Review of Systems: A complete review of systems was performed and pertinent positives are noted in HPI Exam Narrative: General: Alert oriented x3, no acute distress Neck: Supple, No JVD Chest: Bilaterally clear to auscultation, no rales or rhonchi Cardiac: S1, S2 +, regular rate, regular rhythm, no murmurs or rubs Extremities: No pedal edema, no skin rash Neurologic: Alert and oriented x3, no focal neurological deficits Objective Data Vital Signs Vital Signs: Vital Signs - 24 hr 04/11/25 10:00 04/11/25 11:29 04/11/25 11:33 Temperature 36.9 C Pulse Rate 84 82 Respiratory Rate 16 Blood Pressure 136/69 Pulse Oximetry 98 Oxygen Delivery Nasal Cannula Oxygen Flow Rate 2 04/11/25 12:00 04/11/25 12:00 04/11/25 14:00 Temperature Pulse Rate 102 H 83 Respiratory Rate Blood Pressure Pulse Oximetry 98 Oxygen Delivery Nasal Cannula Oxygen Flow Rate 2 04/11/25 16:00 04/11/25 16:00 04/11/25 16:00 Temperature 36.4 C L Pulse Rate 86 91 Respiratory Rate 16 Blood Pressure 123/65 Pulse Oximetry 99 99 Oxygen Delivery Nasal Cannula Oxygen Flow Rate 2 04/11/25 18:00 04/11/25 19:17 04/11/25 20:00 Temperature 36.7 C Pulse Rate 96 94 Respiratory Rate 20 Blood Pressure 141/72 H Pulse Oximetry 97 94 Oxygen Delivery Nasal Cannula Oxygen Flow Rate 1 04/11/25 20:00 04/11/25 20:32 04/11/25 22:17 Temperature Pulse Rate 97 97 Respiratory Rate Blood Pressure Pulse Oximetry 94 Oxygen Delivery Nasal Cannula Oxygen Flow Rate 2 04/11/25 23:15 04/11/25 23:53 04/12/25 00:00 Temperature 36.8 C Pulse Rate 91 92 97 Respiratory Rate 16 Blood Pressure 134/70 Pulse Oximetry 95 95 Oxygen Delivery Nasal Cannula Oxygen Flow Rate 1 04/12/25 02:13 04/12/25 03:22 04/12/25 03:26 Temperature 36.4 C Pulse Rate 99 97 92 Respiratory Rate 16 Blood Pressure 131/66 Pulse Oximetry 92 92 Oxygen Delivery Nasal Cannula Oxygen Flow Rate 2 04/12/25 04:00 04/12/25 05:53 04/12/25 07:55 Temperature 36.8 C Pulse Rate 100 89 86 Respiratory Rate 20 Blood Pressure 137/72 Pulse Oximetry 99 Oxygen Delivery Oxygen Flow Rate Intake/Output Intake/Output: Intake & Output 04/09/25 04/10/25 04/11/25 04/12/25 23:59 23:59 23:59 23:59 Intake Total 1622.7 1552.6 227.0 Output Total 1300 1650 1000 Balance 322.7 -97.4 -773.0 Meds/Results Medications: Active Medications Generic Name Dose Route Start Last Admin Trade Name Freq PRN Reason Stop Dose Admin Acetaminophen 650 mg 04/10/25 01:22 04/10/25 09:34 Acetaminophen 325 Mg Tablet PO 650 mg Q4H PRN Administration Mild Pain (1-3) or Fever Aspirin 81 mg 04/10/25 09:00 04/12/25 08:52 Aspirin 81 Mg Enteric Tablet PO 81 mg DAILY GIOVANY Administration Atorvastatin Calcium 80 mg 04/10/25 21:00 04/11/25 20:33 Atorvastatin 40 Mg Tablet PO 80 mg HS GIOVANY Administration Clopidogrel Bisulfate 75 mg 04/10/25 09:00 04/12/25 08:52 Clopidogrel Bisulfate 75 Mg Tablet PO 75 mg DAILY GIOVANY Administration Cyanocobalamin 1,000 mcg 04/10/25 09:00 04/12/25 08:52 Cyanocobalamin 1,000 Mcg Tablet PO 1,000 mcg DAILY GIOVANY Administration Dextrose 12.5 gm 04/10/25 01:23 Dextrose 50% 25 Gm/50 Ml Syringe IV PUSH PRN PRN Hypoglycemia Protocol Diclofenac Sodium 1 applic 04/10/25 09:00 04/12/25 08:52 Diclofenac Sodium 1% 100 Gm Gel (*Bkc) TOPICAL 1 applic Q12HR GIOVANY Administration Ferrous Sulfate 325 mg 04/10/25 09:00 04/12/25 08:52 Ferrous Sulfate [address] PO 325 mg DAILY GIOVANY Administration Finasteride 5 mg 04/10/25 09:00 04/12/25 08:52 Finasteride 5 Mg Tablet PO 5 mg QAM GIOVANY Administration Fluoxetine HCl 10 mg 04/10/25 09:00 04/12/25 08:52 Fluoxetine Hcl 10 Mg Capsule PO 10 mg DAILY GIOVANY Administration Gabapentin 600 mg 04/10/25 09:00 04/12/25 08:52 Gabapentin 300 Mg Capsule PO 600 mg TID GIOVANY Administration Glucagon 1 mg 04/10/25 01:23 Glucagon For Inj 1 Mg Vial IM PRN PRN Hypoglycemia Protocol Glucose 15 gm 04/10/25 01:23 Glucose Oral Gel 15 Gm Of Glucse In 37.5 Gm Tube PO PRN PRN Hypoglycemia Protocol Heparin Sodium (Porcine) 4,000 units 04/10/25 04:19 04/11/25 12:38 Heparin Sodium 5,000 Units/Ml Vial IV PUSH 4,000 units PRN PRN Administration aPTT less than 55 seconds Heparin Sodium (Porcine) 2,500 units 04/10/25 04:19 04/10/25 18:24 Heparin Sodium 5,000 Units/Ml Vial IV PUSH 2,500 units PRN PRN Administration aPTT 55 - 70 seconds Ceftriaxone Sodium 1 gm in 50 mls @ 100 mls/hr 04/10/25 21:00 04/11/25 20:29 Rocephin 1 Gm/Ns 50 Ml IVPB 100 mls/hr Q24H GIOVANY Administration Doxycycline Hyclate 100 mg in 100 mls @ 100 mls/hr 04/10/25 12:00 04/11/25 23:17 Vibramycin 100 Mg/Ns 100 Ml IVPB 100 mls/hr Q12H GIOVANY Administration Dextrose 1,000 mls @ 100 mls/hr 04/10/25 01:23 Dextrose 5% 1,000 Ml IVPB PRN PRN Hypoglycemia Protocol Heparin Sodium/Dextrose 25,000 units in 250 mls @ 10 mls/hr 04/10/25 04:20 04/12/25 07:17 Heparin Sodium/D5w 100 Units/Ml IV CONT 1,000 units/hr .Q24H GIOVANY 10 mls/hr Titration Protocol 1,000 UNITS/HR Insulin Aspart 3 - 6 units 04/10/25 08:00 04/12/25 08:29 Insulin Aspart (*Bkc) 100 Units/Ml SUB-Q Not Given TIDWM GIOVANY Protocol Insulin Aspart 1 - 3 units 04/10/25 21:00 04/11/25 20:45 Insulin Aspart (*Bkc) 100 Units/Ml SUB-Q 1 units HS GIOVANY Administration Protocol Insulin Glargine 15 units 04/10/25 09:00 04/12/25 08:53 Insulin Glargine (*Bkc) 100 Units/Ml SUB-Q 15 units Q12HR GIOVANY Administration Levothyroxine Sodium 75 mcg 04/10/25 06:30 04/12/25 05:34 Levothyroxine Sodium 75 Mcg Tablet PO 75 mcg DAILY@0630 GIOVANY Administration Metronidazole 500 mg 04/10/25 22:00 04/12/25 05:34 Metronidazole 500 Mg Tablet PO 500 mg Q8HR GIOVANY Administration Nitroglycerin 0.4 mg 04/12/25 08:41 04/12/25 08:53 Nitroglycerin Sl 0.4 Mg Tablet SUBLINGUAL 0.4 mg Q5MIN PRN Administration Chest Pain Perflutren Lipid Microsphere 0 ml 04/12/25 08:28 Perflutren Lipid Microspheres 1.5 Ml Vial Diluted To 10 Ml Total Volume IV PUSH 04/15/25 08:28 ONCE PRN adequate visualization Protocol Senna/Docusate Sodium 1 tab 04/10/25 21:00 04/11/25 20:33 Senna/Docusate Sodium Tablet PO 1 tab HS GIOVANY Administration Tamsulosin HCl 0.4 mg 04/10/25 09:00 04/12/25 08:52 Tamsulosin Hcl 0.4 Mg Capsule PO 0.4 mg DAILY GIOVANY Administration Tramadol HCl 50 mg 04/10/25 04:21 Tramadol Hcl (*Crx) 50 Mg Tablet PO Q8H PRN pain 4-10 Radiology Results: ITS Impressions Chest X-Ray 04/09/25 20:36 IMPRESSION: Small bilateral pleural effusions with multifocal pneumonia. Chest CTA 04/09/25 22:33 IMPRESSION: No pulmonary embolus. No thoracic aortic dissection. Multifocal pneumonia, as detailed above. Labs Labs: Laboratory Results - last 24 hr 04/11/25 04/11/25 04/11/25 11:08 12:11 15:32 WBC RBC Hgb Hct MCV MCH MCHC RDW Plt Count MPV Immature Gran % (Auto) Neut % (Auto) Lymph % (Auto) [place] % (Auto) Eos % (Auto) Baso % (Auto) Lymph # (Auto) [place] # (Auto) Eos # (Auto) Baso # (Auto) Abs Immat Gran (auto) Absolute Neuts (auto) Absolute Nucleated RBC Nucleated RBC % APTT 53.6 H Sodium Potassium Chloride Carbon Dioxide Anion Gap BUN Creatinine Estim Creat Clear Calc Estimated GFR Glucose POC Capillary Glucose 156 H 186 H Calcium Magnesium Troponin I 2.160 H* 04/11/25 04/11/25 04/12/25 18:14 20:36 00:32 WBC RBC Hgb Hct MCV MCH MCHC RDW Plt Count MPV Immature Gran % (Auto) Neut % (Auto) Lymph % (Auto) [place] % (Auto) Eos % (Auto) Baso % (Auto) Lymph # (Auto) [place] # (Auto) Eos # (Auto) Baso # (Auto) Abs Immat Gran (auto) Absolute Neuts (auto) Absolute Nucleated RBC Nucleated RBC % APTT 112.9 H 94.2 H Sodium Potassium Chloride Carbon Dioxide Anion Gap BUN Creatinine Estim Creat Clear Calc Estimated GFR Glucose POC Capillary Glucose 210 H Calcium Magnesium Troponin I 04/12/25 04/12/25 06:23 07:04 WBC 10.6 H RBC 2.73 L Hgb 8.5 L Hct 27.6 L MCV 101.1 H MCH 31.1 MCHC 30.8 L RDW 13.1 Plt Count 186 MPV 10.2 Immature Gran % (Auto) 0.6 H Neut % (Auto) 63.9 Lymph % (Auto) 15.7 L [place] % (Auto) 18.3 H Eos % (Auto) 1.3 Baso % (Auto) 0.2 Lymph # (Auto) 1.67 [place] # (Auto) 1.9 H Eos # (Auto) 0.1 Baso # (Auto) 0.0 Abs Immat Gran (auto) 0.06 H Absolute Neuts (auto) 6.8 H Absolute Nucleated RBC 0.000 Nucleated RBC % 0.0 APTT 84.7 H Sodium 136 L Potassium 3.6 Chloride 104 Carbon Dioxide 26 Anion Gap 6 BUN 23 H Creatinine 1.34 H Estim Creat Clear Calc 34 Estimated GFR 51 L Glucose 89 POC Capillary Glucose 97 Calcium 8.7 Magnesium 1.6 Troponin I Quality VTE Prophylaxis VTE prophylaxis: pharmacologic ordered ( heparin drip per protocol)
--- NOTE | 2025-04-12 09:59 | ECG_ITS ---
Test Date: 2025-04-12 10:21:42 Measurements Intervals [place] Rate: 87 P: 16 NE: 151 QRS: -53 QRSD: 137 T: 96 QT: 370 QTc: 447 Interpretive Statements SINUS RHYTHM WITH OCCASIONAL VENTRICULAR PREMATURE COMPLEXES INTRAVENTRICULAR CONDUCTION DELAY [130+ ms QRS DURATION] POSSIBLE ANTERIOR MYOCARDIAL INFARCTION , OF INDETERMINATE AGE [30 ms Q WAVE IN V3/V4, OR R < 0.2 mV IN V4] Compared to ECG 04/12/2025 09:04:04 Ventricular premature complex(es) now present Electronically Signed On 04-13-2025 14:34:42 CDT by Yina Bauer M.D.
[2025-04-12 11:15] LABS: Glucose Point of Care 100 mg/dl (65-105)
[2025-04-12] MEDS: DOXYCYCLINE 100 MG/NS 100 ML 100 MG/100 ML BAG IVPB (12:30)
[2025-04-12] MEDS: PERFLUTREN LIPID MICROSPHERES 1.5 ML VIAL DILUTED TO 10 ML TOTAL VOLUME IV PUSH (14:20)
--- NOTE | 2025-04-12 15:53 | IVDEFINITY ---
Prior to administration of IV Definity the patient was educated on the risks and benefits of the imaging enhancing agent including potential adverse side effects. The patient verbalized understanding. Allergies were verified. No exclusion criteria were identified and at least one of the following inclusion criteria were met: 1) physician request, 2) patient technically difficult to image (per the [place] [employer] guidelines of two or more segments not discernable within the apical view), or 3) questionable left ventricular function.
[2025-04-12] MEDS: INSULIN ASPART (*BKC) 100 UNITS/ML SUB-Q (17:21)
--- NOTE | 2025-04-12 17:22 | PM.IMPN ---
Progress Note: A&P Assessment and Plan (1) Multifocal pneumonia: Code(s): J18.9 - Pneumonia, unspecified organism Status: Acute (2) Hypoxic respiratory failure: Qualifiers: Chronicity: acute Qualified Code(s): J96.01 - Acute respiratory failure with hypoxia Code(s): J96.91 - Respiratory failure, unspecified with hypoxia Status: Acute (3) Non-STEMI (non-ST elevated myocardial infarction): Code(s): I21.4 - Non-ST elevation (NSTEMI) myocardial infarction Status: Acute (4) Sepsis: Qualifiers: Acute respiratory failure type: with hypoxia Sepsis acute organ dysfunction status: with acute organ dysfunction Sepsis type: sepsis due to unspecified organism Severe sepsis acute organ dysfunction type: acute respiratory failure Severe sepsis shock status: without septic shock Qualified Code(s): A41.9 - Sepsis, unspecified organism; R65.20 - Severe sepsis without septic shock; J96.01 - Acute respiratory failure with hypoxia Code(s): A41.9 - Sepsis, unspecified organism Status: Acute (5) Type 2 diabetes mellitus with hyperglycemia, with long-term current use of insulin: Code(s): E11.65 - Type 2 diabetes mellitus with hyperglycemia; Z79.4 - terminal operations manager (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 Patient been placed on empiric antibiotic therapy with Rocephin and doxycycline. Will obtain urine pneumococcal and Legionella . Blood cultures have been obtained and are pending. Will monitor CBC. Will wean oxygen as tolerated. the patient met sepsis criteria and received 30 mL/kilos fluid bolus. He does have some mild JVD but heart rate has improved in besides his chronic mild lower extremity edema appears relatively euvolemic. He does still have some dry mucous membranes. Will encourage oral fluid intake. Will monitor strict I&O's and daily weights. Sepsis criteria met with tachycardia, leukocytosis in the setting of multifocal pneumonia. Patient did have an elevated D-dimer but CTA ruled out pulmonary embolism. The patient did present with chest pain per EMS report but is not having any current chest pain. Patient's troponins do fit criteria for non STEMI. Patient has been started on heparin drip. Will resume the patient's home dual anti-platelet medications, statin therapy and antihypertensives. Patient has type 2 diabetes mellitus with hyperglycemia. Will continue home long-acting insulin and will add moderate sliding scale insulin Accu-Cheks a.c. HS and hypoglycemia protocol. Patient has chronic kidney disease and creatinine is around the patient's baseline. Will repeat electrolyte panel in a.m. and monitor urine output closely. Will avoid nephrotoxic medications. Patient does have megaloblastic anemia. Will check B12 and folic acid level to rule out vitamin deficiency. 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 patient's UA is abnormal but does not appear to be overtly infected. Will await urine cultures. 84 y/o male presented with shortness of breath, is found to have multifocal pneumonia being treated with ceftriaxone and Zithromax, will Flagyl to cover for anaerobics, patient stats feeling much better compared to when he arrived, patient has elevated tropes in the range of NSTEMI possibly demand ischemia due to hypoxia due to multifocal pneumonia, patient is being treated with heparin for 48hrs which now stopped, today patient complained of CP seen by manager forensic does not suspect STEMI, most likely pain due to pneumonia, recommendation to CPM, once the patient is clinically stable, will have PT/OT evaluate the patient will benefit going to acute rehab. Subjective Date/time seen: 04/12/25 17:22 Interval history: Low oxygen saturations, chest pain H&P-Narrative: 84-year-old male with a past medical history of dementia, coronary artery disease with CABG x2, insulin-dependent diabetes mellitus, hypothyroidism, prior tobacco abuse, CVA and chronic kidney disease among other comorbidities who presented to the ER via EMS from [facility] due to low oxygen saturations, chest pain and vomiting. Majority of information was obtained from residential records, EMS report and ER physician report as well as review of past medical records. At the time of my evaluation the patient was alert oriented to person, place, month and the name of the current president but was confused as to the year in could not recall the symptoms that brought him to the hospital. The EMS had reported that a patient was satting in the mid 80s on arrival to the residential and he was placed on 3 L oxygen with improvement in O2 sats up to the mid 90s. The patient is not on oxygen at the residential. The patient denies any report of coughing or feeling short of breath. He does report left leg pain due which is likely due to his history of sciatica. He openly admits that he a does not know what year it is and has not known the year for a long time. He denies any current nausea vomiting and does not recall vomiting earlier today. He denies any current chest pain and did not recall specific chest pain prior to coming in. His initial troponin in the ER was mildly elevated slightly more so than his baseline from a couple of years ago. He was afebrile since presentation But did have some mild leukocytosis. D-dimer was elevated in the ER and subsequently patient underwent CTA which demonstrated multifocal pneumonia without evidence of pulmonary embolism. Creatinine was elevated in the ER but was within the range of patient's prior renal function. The patient had markedly cloudy urine at the time my evaluation with a pure wick in place. his UA demonstrated 3+ esterase and greater than 100 wbc's with some Yeast present. He denies any dysuria. He has had fair urine output since arrival to the IMU. Patient has ostomy in place that appears to be emptying well. 84 y/o male presented with shortness of breath, is found to have multifocal pneumonia being treated with ceftriaxone and Zithromax, will Flagyl to cover for anaerobics, patient stats feeling much better compared to when he arrived, patient has elevated tropes in the range of NSTEMI possibly demand ischemia due to hypoxia due to multifocal pneumonia, patient is being treated with heparin for 48hrs which now stopped, today patient complained of CP seen by manager forensic does not suspect STEMI, most likely pain due to pneumonia, recommendation to CPM, once the patient is clinically stable, will have PT/OT evaluate the patient will benefit going to acute rehab. Review of Systems Review of Systems: Review of systems unobtainable due to dementia Exam Narrative: Patient is comfortable, NAD HEENT: eyes are clear and none icteric LUNGS: Bilateral fair entry with rhonchi HEART: RR S1S2 ABD: BS+, Soft and nontender Lower extremities: no edema SKIN: nonjaundiced Neuro: grossly intact. Objective Data Vital Signs Vital Signs: Vital Signs - 24 hr 04/11/25 18:00 04/11/25 19:17 04/11/25 20:00 Temperature 36.7 C Pulse Rate 96 94 Respiratory Rate 20 Blood Pressure 141/72 H Pulse Oximetry 97 94 Oxygen Delivery Nasal Cannula Oxygen Flow Rate 1 04/11/25 20:00 04/11/25 20:32 04/11/25 22:17 Temperature Pulse Rate 97 97 Respiratory Rate Blood Pressure Pulse Oximetry 94 Oxygen Delivery Nasal Cannula Oxygen Flow Rate 2 04/11/25 23:15 04/11/25 23:53 04/12/25 00:00 Temperature 36.8 C Pulse Rate 91 92 97 Respiratory Rate 16 Blood Pressure 134/70 Pulse Oximetry 95 95 Oxygen Delivery Nasal Cannula Oxygen Flow Rate 1 04/12/25 02:13 04/12/25 03:22 04/12/25 03:26 Temperature 36.4 C Pulse Rate 99 97 92 Respiratory Rate 16 Blood Pressure 131/66 Pulse Oximetry 92 92 Oxygen Delivery Nasal Cannula Oxygen Flow Rate 2 04/12/25 04:00 04/12/25 05:53 04/12/25 07:55 Temperature 36.8 C Pulse Rate 100 89 86 Respiratory Rate 20 Blood Pressure 137/72 Pulse Oximetry 99 Oxygen Delivery Oxygen Flow Rate 04/12/25 08:00 04/12/25 08:00 04/12/25 10:00 Temperature Pulse Rate 95 95 81 Respiratory Rate Blood Pressure Pulse Oximetry 92 Oxygen Delivery Nasal Cannula Oxygen Flow Rate 2 04/12/25 11:36 04/12/25 12:00 04/12/25 12:00 Temperature 36.4 C L Pulse Rate 87 80 Respiratory Rate 24 H Blood Pressure 130/67 Pulse Oximetry 90 92 Oxygen Delivery Nasal Cannula Oxygen Flow Rate 2 04/12/25 14:00 04/12/25 14:24 04/12/25 15:10 Temperature Pulse Rate 104 H Respiratory Rate Blood Pressure Pulse Oximetry 98 Oxygen Delivery Nasal Cannula Nasal Cannula Oxygen Flow Rate 2 2 04/12/25 15:59 04/12/25 16:00 04/12/25 16:00 Temperature 36.5 C Pulse Rate 88 94 Respiratory Rate 20 Blood Pressure 114/42 L Pulse Oximetry 98 98 Oxygen Delivery Nasal Cannula Oxygen Flow Rate 2 Intake/Output Intake/Output: Intake & Output 04/09/25 04/10/25 04/11/25 04/12/25 23:59 23:59 23:59 23:59 Intake Total 1622.7 1552.6 858.7 Output Total 1300 1650 1000 Balance 322.7 -97.4 -141.3 Meds/Results Medications: Active Medications Generic Name Dose Route Start Last Admin Trade Name Freq PRN Reason Stop Dose Admin Acetaminophen 650 mg 04/10/25 01:22 04/10/25 09:34 Acetaminophen 325 Mg Tablet PO 650 mg Q4H PRN Administration Mild Pain (1-3) or Fever Aspirin 81 mg 04/10/25 09:00 04/12/25 08:52 Aspirin 81 Mg Enteric Tablet PO 81 mg DAILY GIOVANY Administration Atorvastatin Calcium 80 mg 04/10/25 21:00 04/11/25 20:33 Atorvastatin 40 Mg Tablet PO 80 mg HS GIOVANY Administration Clopidogrel Bisulfate 75 mg 04/10/25 09:00 04/12/25 08:52 Clopidogrel Bisulfate 75 Mg Tablet PO 75 mg DAILY GIOVANY Administration Cyanocobalamin 1,000 mcg 04/10/25 09:00 04/12/25 08:52 Cyanocobalamin 1,000 Mcg Tablet PO 1,000 mcg DAILY GIOVANY Administration Dextrose 12.5 gm 04/10/25 01:23 Dextrose 50% 25 Gm/50 Ml Syringe IV PUSH PRN PRN Hypoglycemia Protocol Diclofenac Sodium 1 applic 04/10/25 09:00 04/12/25 08:52 Diclofenac Sodium 1% 100 Gm Gel (*Bkc) TOPICAL 1 applic Q12HR GIOVANY Administration Doxycycline Hyclate 100 mg 04/12/25 21:00 Doxycycline Hyclate 100 Mg Tablet PO 04/14/25 21:01 Q12HR GIOVANY Ferrous Sulfate 325 mg 04/13/25 12:00 Ferrous Sulfate [address] PO DAILY@1200 GIOVANY Finasteride 5 mg 04/10/25 09:00 04/12/25 08:52 Finasteride 5 Mg Tablet PO 5 mg QAM GIOVANY Administration Fluoxetine HCl 10 mg 04/10/25 09:00 04/12/25 08:52 Fluoxetine Hcl 10 Mg Capsule PO 10 mg DAILY GIOVANY Administration Gabapentin 600 mg 04/10/25 09:00 04/12/25 17:21 Gabapentin 300 Mg Capsule PO 600 mg TID GIOVANY Administration Glucagon 1 mg 04/10/25 01:23 Glucagon For Inj 1 Mg Vial IM PRN PRN Hypoglycemia Protocol Glucose 15 gm 04/10/25 01:23 Glucose Oral Gel 15 Gm Of Glucse In 37.5 Gm Tube PO PRN PRN Hypoglycemia Protocol Heparin Sodium (Porcine) 4,000 units 04/10/25 04:19 04/11/25 12:38 Heparin Sodium 5,000 Units/Ml Vial IV PUSH 4,000 units PRN PRN Administration aPTT less than 55 seconds Heparin Sodium (Porcine) 2,500 units 04/10/25 04:19 04/10/25 18:24 Heparin Sodium 5,000 Units/Ml Vial IV PUSH 2,500 units PRN PRN Administration aPTT 55 - 70 seconds Ceftriaxone Sodium 1 gm in 50 mls @ 100 mls/hr 04/10/25 21:00 04/11/25 20:29 Rocephin 1 Gm/Ns 50 Ml IVPB 100 mls/hr Q24H GIOVANY Administration Dextrose 1,000 mls @ 100 mls/hr 04/10/25 01:23 Dextrose 5% 1,000 Ml IVPB PRN PRN Hypoglycemia Protocol Heparin Sodium/Dextrose 25,000 units in 250 mls @ 10 mls/hr 04/10/25 04:20 04/12/25 13:27 Heparin Sodium/D5w 100 Units/Ml IV CONT Infused .Q24H GIOVANY Titration Protocol 1,000 UNITS/HR Insulin Aspart 3 - 6 units 04/10/25 08:00 04/12/25 17:21 Insulin Aspart (*Bkc) 100 Units/Ml SUB-Q 3 units TIDWM GIOVANY Administration Protocol Insulin Aspart 1 - 3 units 04/10/25 21:00 04/11/25 20:45 Insulin Aspart (*Bkc) 100 Units/Ml SUB-Q 1 units HS GIOVANY Administration Protocol Insulin Glargine 15 units 04/10/25 09:00 04/12/25 08:53 Insulin Glargine (*Bkc) 100 Units/Ml SUB-Q 15 units Q12HR GIOVANY Administration Levothyroxine Sodium 75 mcg 04/10/25 06:30 04/12/25 05:34 Levothyroxine Sodium 75 Mcg Tablet PO 75 mcg DAILY@0630 GIOVANY Administration Metronidazole 500 mg 04/10/25 22:00 04/12/25 14:12 Metronidazole 500 Mg Tablet PO 500 mg Q8HR GIOVANY Administration Nitroglycerin 0.4 mg 04/12/25 08:41 04/12/25 08:53 Nitroglycerin Sl 0.4 Mg Tablet SUBLINGUAL 0.4 mg Q5MIN PRN Administration Chest Pain Senna/Docusate Sodium 1 tab 04/10/25 21:00 04/11/25 20:33 Senna/Docusate Sodium Tablet PO 1 tab HS GIOVANY Administration Tamsulosin HCl 0.4 mg 04/10/25 09:00 04/12/25 08:52 Tamsulosin Hcl 0.4 Mg Capsule PO 0.4 mg DAILY GIOVANY Administration Tramadol HCl 50 mg 04/10/25 04:21 Tramadol Hcl (*Crx) 50 Mg Tablet PO Q8H PRN pain 4-10 Radiology Results: ITS Impressions Chest X-Ray 04/09/25 20:36 IMPRESSION: Small bilateral pleural effusions with multifocal pneumonia. Chest CTA 04/09/25 22:33 IMPRESSION: No pulmonary embolus. No thoracic aortic dissection. Multifocal pneumonia, as detailed above. Labs Labs: Laboratory Results - last 24 hr 04/11/25 04/11/25 04/12/25 18:14 20:36 00:32 WBC RBC Hgb Hct MCV MCH MCHC RDW Plt Count MPV Immature Gran % (Auto) Neut % (Auto) Lymph % (Auto) [place] % (Auto) Eos % (Auto) Baso % (Auto) Lymph # (Auto) [place] # (Auto) Eos # (Auto) Baso # (Auto) Abs Immat Gran (auto) Absolute Neuts (auto) Absolute Nucleated RBC Nucleated RBC % APTT 112.9 H 94.2 H Sodium Potassium Chloride Carbon Dioxide Anion Gap BUN Creatinine Estim Creat Clear Calc Estimated GFR Glucose POC Capillary Glucose 210 H Calcium Magnesium 04/12/25 04/12/25 04/12/25 06:23 07:04 11:09 WBC 10.6 H RBC 2.73 L Hgb 8.5 L Hct 27.6 L MCV 101.1 H MCH 31.1 MCHC 30.8 L RDW 13.1 Plt Count 186 MPV 10.2 Immature Gran % (Auto) 0.6 H Neut % (Auto) 63.9 Lymph % (Auto) 15.7 L [place] % (Auto) 18.3 H Eos % (Auto) 1.3 Baso % (Auto) 0.2 Lymph # (Auto) 1.67 [place] # (Auto) 1.9 H Eos # (Auto) 0.1 Baso # (Auto) 0.0 Abs Immat Gran (auto) 0.06 H Absolute Neuts (auto) 6.8 H Absolute Nucleated RBC 0.000 Nucleated RBC % 0.0 APTT 84.7 H Sodium 136 L Potassium 3.6 Chloride 104 Carbon Dioxide 26 Anion Gap 6 BUN 23 H Creatinine 1.34 H Estim Creat Clear Calc 34 Estimated GFR 51 L Glucose 89 POC Capillary Glucose 97 100 Calcium 8.7 Magnesium 1.6 Quality VTE Prophylaxis VTE prophylaxis: pharmacologic ordered ( heparin drip per protocol)
[2025-04-12 17:31] LABS: Glucose Point of Care 240 mg/dl (65-105)
[2025-04-12 21:04] LABS: Glucose Point of Care 141 mg/dl (65-105)
[2025-04-12] MEDS: ATORVASTATIN 40 MG TABLET 80 MG PO (21:09)
[2025-04-12] MEDS: DOXYCYCLINE HYCLATE 100 MG TABLET PO (21:09)
[2025-04-12] MEDS: SENNA/DOCUSATE SODIUM TABLET 1 TAB PO (21:09)
[2025-04-13] VITALS (16 sets, daily range): BP systolic 112–133; BP diastolic 50–70; PULSE 80–104; RESP 12–20; TEMP 36.5–37.1; O2SAT 86–98
[2025-04-13 04:41] LABS: Anion Gap 8 mmol/L (4-12); Blood Urea Nitrogen 24 mg/dL (9-20); Calcium 8.9 mg/dL (8.4-10.2); Carbon Dioxide 26 mmol/L (22-30); Chloride 103 mmol/L (98-107); Estimated CRCL calculation 35 ml/min; Estimated Glomerular Filt Rate 55; Glucose 80 mg/dL (65-110); Magnesium 1.6 mg/dL (1.6-2.3); Potassium 3.5 mmol/L (3.4-5.0); Sodium 137 mmol/L (137-145)
[2025-04-13] MEDS: LEVOTHYROXINE SODIUM 75 MCG TABLET PO (06:01)
[2025-04-13] MEDS: metroNIDAZOLE 500 MG TABLET PO ×3 (06:01→20:45)
[2025-04-13 07:23] LABS: Glucose Point of Care 70 mg/dl (65-105)
[2025-04-13 08:29] LABS: Glucose Point of Care 140 mg/dl (65-105)
[2025-04-13] MEDS: FLUoxetine HCL 10 MG CAPSULE PO (08:53)
[2025-04-13] MEDS: DOXYCYCLINE HYCLATE 100 MG TABLET PO ×2 (08:53→20:45)
[2025-04-13] MEDS: ASPIRIN 81 MG ENTERIC TABLET PO (08:53)
[2025-04-13] MEDS: TAMSULOSIN HCL 0.4 MG CAPSULE PO (08:53)
[2025-04-13] MEDS: CLOPIDOGREL BISULFATE 75 MG TABLET PO (08:53)
[2025-04-13] MEDS: CYANOCOBALAMIN 1,000 MCG TABLET 1000 MCG PO (08:53)
[2025-04-13] MEDS: GABAPENTIN 300 MG CAPSULE 600 MG PO ×3 (08:53→17:02)
[2025-04-13] MEDS: INSULIN GLARGINE (*BKC) 100 UNITS/ML 15 UNITS SUB-Q ×2 (08:54→20:45)
[2025-04-13] MEDS: FINASTERIDE 5 MG TABLET PO (08:54)
[2025-04-13] MEDS: ONDANSETRON INJ 4 MG/2 ML VIAL IV PUSH (09:57)
[2025-04-13 11:43] LABS: Glucose Point of Care 101 mg/dl (65-105)
[2025-04-13] MEDS: FERROUS SULFATE 325 MG TABLET DR PO (13:54)
[2025-04-13] MEDS: ACETAMINOPHEN 325 MG TABLET 650 MG PO ×2 (13:56→21:18)
[2025-04-13 16:20] LABS: Glucose Point of Care 158 mg/dl (65-105)
--- NOTE | 2025-04-13 16:35 | P.PNIM_ITS ---
Progress Note: A&P Assessment and Plan (1) Multifocal pneumonia: Code(s): J18.9 - Pneumonia, unspecified organism Status: Acute (2) Hypoxic respiratory failure: Qualifiers: Chronicity: acute Qualified Code(s): J96.01 - Acute respiratory failure with hypoxia Code(s): J96.91 - Respiratory failure, unspecified with hypoxia Status: Acute (3) Non-STEMI (non-ST elevated myocardial infarction): Code(s): I21.4 - Non-ST elevation (NSTEMI) myocardial infarction Status: Acute (4) Sepsis: Qualifiers: Acute respiratory failure type: with hypoxia Sepsis acute organ dysfunction status: with acute organ dysfunction Sepsis type: sepsis due to unspecified organism Severe sepsis acute organ dysfunction type: acute respiratory failure Severe sepsis shock status: without septic shock Qualified Code(s): A41.9 - Sepsis, unspecified organism; R65.20 - Severe sepsis without septic shock; J96.01 - Acute respiratory failure with hypoxia Code(s): A41.9 - Sepsis, unspecified organism Status: Acute (5) Type 2 diabetes mellitus with hyperglycemia, with long-term current use of insulin: Code(s): E11.65 - Type 2 diabetes mellitus with hyperglycemia; 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 Patient been placed on empiric antibiotic therapy with Rocephin and doxycycline. Will obtain urine pneumococcal and Legionella . Blood cultures have been obtained and are pending. Will monitor CBC. Will wean oxygen as tolerated. the patient met sepsis criteria and received 30 mL/kilos fluid bolus. He does h ave some mild JVD but heart rate has improved in besides his chronic mild lower extremity edema appears relatively euvolemic. He does still have some dry mucous membranes. Will encourage oral fluid intake. Will monitor strict I&O's and daily weights. Sepsis criteria met with tachycardia, leukocytosis in the setting of multifocal pneumonia. Patient did have an elevated D-dimer but CTA ruled out pulmonary embolism. The patient did present with chest pain per EMS report but is not having any current chest pain. Patient's troponins do fit criteria for non STEMI. Patient has been started on heparin drip. Will resume the patient's home dual anti- platelet medications, statin therapy and antihypertensives. Patient has type 2 diabetes mellitus with hyperglycemia. Will continue home long-acting insulin and will add moderate sliding scale insulin Accu-Cheks a.c. HS and hypoglycemia protocol. Patient has chronic kidney disease and creatinine is around the patient's baseline. Will repeat electrolyte panel in a.m. and monitor urine output closely. Will avoid nephrotoxic medications. Patient does have megaloblastic anemia. Will check B12 and folic acid level to rule out vitamin deficiency. 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 patient's UA is abnormal but does not appear to be overtly infected. Will await urine cultures. 84 y/o male presented with shortness of breath, is found to have multifocal pneumonia being treated with ceftriaxone and Zithromax, will Flagyl to cover for anaerobics, patient stats feeling much better compared to when he arrived, patient has elevated tropes in the range of NSTEMI possibly demand ischemia due to hypoxia due to multifocal pneumonia, patient is being treated with heparin for 48hrs which now stopped, today patient complained of CP seen by java programmer does not suspect STEMI, most likely pain due to pneumonia, recommendation to CPM, today patient stats he is feeling better and he does not have CP any more, his CXR shows some improvement in the pneumonia, once the patient is clinically stable, will have PT/OT evaluate the patient will benefit going to acute rehab. Subjective Date/time seen: 04/13/25 16:35 Interval history: Low oxygen saturations, chest pain H&P-Narrative: 84-year-old male with a past medical history of dementia, coronary artery disease with CABG x2, insulin-dependent diabetes mellitus, hypothyroidism, prior tobacco abuse, CVA and chronic kidney disease among other comorbidities who presented to the ER via EMS from [facility] due to low oxygen saturations, chest pain and vomiting. Majority of information was obtained from [facility] records, EMS report and ER physician report as well as review of past medical records. At the time of my evaluation the patient was alert oriented to person, place, month and the name of the current president but was confused as to the year in could not recall the symptoms that brought him to the hospital. The EMS had reported that a patient was satting in the mid 80s on arrival to the [facility] and he was placed on 3 L oxygen with improvement in O2 sats up to the mid 90s. The patient is not on oxygen at the [facility]. The patient denies any report of coughing or feeling short of breath. He does report left leg pain due which is likely due to his history of sciatica. He openly admits that he a does not know what year it is and has not known the year for a long time. He denies any current nausea vomiting and does not recall vomiting earlier today. He denies any current chest pain and did not recall specific chest pain prior to coming in. His initial troponin in the ER was mildly elevated slightly more so than his baseline from a couple of years ago. He was afebrile since presentation But did have some mild leukocytosis. D-d terrell was elevated in the ER and subsequently patient underwent CTA which demonstrated multifocal pneumonia without evidence of pulmonary embolism. Creatinine was elevated in the ER but was within the range of patient's prior renal function. The patient had markedly cloudy urine at the time my evaluation with a pure wick in place. his UA demonstrated 3+ esterase and greater than 100 wbc's with some Yeast present. He denies any dysuria. He has had fair urine output since arrival to the IMU. Patient has ostomy in place that appears to be emptying well. 84 y/o male presented with shortness of breath, is found to have multifocal pneumonia being treated with ceftriaxone and Zithromax, will Flagyl to cover for anaerobics, patient stats feeling much better compared to when he arrived, larry garcía has elevated tropes in the range of NSTEMI possibly demand ischemia due to hypoxia due to multifocal pneumonia, patient is being treated with heparin for 48hrs which now stopped, today patient complained of CP seen by java programmer does not suspect STEMI, most likely pain due to pneumonia, recommendation to CPM, today patient stats he is feeling better and he does not have CP any more, his CXR shows some improvement in the pneumonia, once the patient is clinically stable, will have PT/OT evaluate the patient will benefit going to acute rehab. Review of Systems Review of Systems: Review of systems unobtainable due to dementia Exam Narrative: Patient is comfortable, NAD HEENT: eyes are clear and none icteric LUNGS: Bilateral fair entry with rhonchi HEART: RR S1S2 ABD: BS+, Soft and nontender Lower extremities: no edema SKIN: nonjaundiced Neuro: grossly intact. Objective Data Vital Signs Vital Signs: Vital Signs - 24 hr 04/12/25 18:00 04/12/25 20:00 04/12/25 20:00 Temperature Pulse Rate 99 93 Respiratory Rate Blood Pressure Pulse Oximetry 95 Oxygen Delivery Nasal Cannula Oxygen Flow Rate 2 04/12/25 20:35 04/12/25 22:00 04/12/25 22:40 Temperature 36.7 C Pulse Rate 96 101 H 99 Respiratory Rate 22 H Blood Pressure 127/74 Pulse Oximetry 95 95 Oxygen Delivery Oxygen Flow Rate 2 04/12/25 23:45 04/13/25 00:00 04/13/25 00:00 Temperature 37.0 C Pulse Rate 102 H 99 Respiratory Rate 18 Blood Pressure 136/69 Pulse Oximetry 95 95 Oxygen Delivery Nasal Cannula Oxygen Flow Rate 2 04/13/25 02:00 04/13/25 03:54 04/13/25 04:00 Temperature 36.8 C Pulse Rate 95 93 90 Respiratory Rate 20 Blood Pressure 124/62 Pulse Oximetry 94 Oxygen Delivery Oxygen Flow Rate 04/13/25 04:00 04/13/25 06:00 04/13/25 07:52 Temperature 36.5 C Pulse Rate 96 95 Respiratory Rate 20 Blood Pressure 130/70 Pulse Oximetry 97 98 Oxygen Delivery Nasal Cannula Oxygen Flow Rate 2 04/13/25 08:00 04/13/25 08:00 04/13/25 09:00 Temperature Pulse Rate 95 91 92 Respiratory Rate 20 Blood Pressure Pulse Oximetry 98 94 Oxygen Delivery Nasal Cannula Room Air Oxygen Flow Rate 2 04/13/25 09:30 04/13/25 09:33 04/13/25 10:00 Temperature Pulse Rate 95 Respiratory Rate Blood Pressure Pulse Oximetry 86 L 94 Oxygen Delivery Nasal Cannula Nasal Cannula Oxygen Flow Rate 1 1 04/13/25 12:00 04/13/25 12:00 04/13/25 16:00 Temperature 37.1 C Pulse Rate 88 104 H 82 Respiratory Rate 20 Blood Pressure 133/64 Pulse Oximetry 93 Oxygen Delivery Oxygen Flow Rate 04/13/25 16:00 Temperature 36.8 C Pulse Rate 80 Respiratory Rate 12 Blood Pressure 115/51 L Pulse Oximetry 91 Oxygen Delivery Oxygen Flow Rate Intake/Output Intake/Output: Intake & Output 04/10/25 04/11/25 04/12/25 04/13/25 23:59 23:59 23:59 23:59 Intake Total 1622.7 1602.6 1108.7 1090 Output Total 1300 1650 1150 1400 Balance 322.7 -47.4 -41.3 -310 Meds/Results Medications: Active Medications Generic Name Dose Route Start Last Admin Trade Name Freq PRN Reason Stop Dose Admin Acetaminophen 650 mg 04/10/25 01:22 04/13/25 13:56 Acetaminophen 325 Mg Tablet PO 650 mg Q4H PRN Administration Mild Pain (1-3) or Fever Aspirin 81 mg 04/10/25 09:00 04/13/25 08:53 Aspirin 81 Mg Enteric Tablet PO 81 mg DAILY GIOVANY Administration Atorvastatin Calcium 80 mg 04/10/25 21:00 04/12/25 21:09 Atorvastatin 40 Mg Tablet PO 80 mg HS GIOVANY Administration Clopidogrel Bisulfate 75 mg 04/10/25 09:00 04/13/25 08:53 Clopidogrel Bisulfate 75 Mg Tablet PO 75 mg DAILY GIOVANY Administration Cyanocobalamin 1,000 mcg 04/10/25 09:00 04/13/25 08:53 Cyanocobalamin 1,000 Mcg Tablet PO 1,000 mcg DAILY GIOVANY Administration Dextrose 12.5 gm 04/10/25 01:23 Dextrose 50% 25 Gm/50 Ml Syringe IV PUSH PRN PRN Hypoglycemia Protocol Diclofenac Sodium 1 applic 04/10/25 09:00 04/13/25 09:01 Diclofenac Sodium 1% 100 Gm Gel (*Bkc) TOPICAL Not Given Q12HR GIOVANY Doxycycline Hyclate 100 mg 04/12/25 21:00 04/13/25 08:53 Doxycycline Hyclate 100 Mg Tablet PO 04/14/25 21:01 100 mg Q12HR GIOVANY Administration Ferrous Sulfate 325 mg 04/13/25 12:00 04/13/25 13:54 Ferrous Sulfate [address] PO 325 mg DAILY@1200 GIOVANY Administration Finasteride 5 mg 04/10/25 09:00 04/13/25 08:54 Finasteride 5 Mg Tablet PO 5 mg QAM GIOVANY Administration Fluoxetine HCl 10 mg 04/10/25 09:00 04/13/25 08:53 Fluoxetine Hcl 10 Mg Capsule PO 10 mg DAILY GIOVANY Administration Gabapentin 600 mg 04/10/25 09:00 04/13/25 13:54 Gabapentin 300 Mg Capsule PO 600 mg TID GIOVANY Administration Glucagon 1 mg 04/10/25 01:23 Glucagon For Inj 1 Mg Vial IM PRN PRN Hypoglycemia Protocol Glucose 15 gm 04/10/25 01:23 Glucose Oral Gel 15 Gm Of Glucse In 37.5 Gm Tube PO PRN PRN Hypoglycemia Protocol Ceftriaxone Sodium 1 gm in 50 mls @ 100 mls/hr 04/10/25 21:00 04/12/25 21:40 Rocephin 1 Gm/Ns 50 Ml IVPB Infused Q24H GIOVANY Infusion Dextrose 1,000 mls @ 100 mls/hr 04/10/25 01:23 Dextrose 5% 1,000 Ml IVPB PRN PRN Hypoglycemia Protocol Insulin Aspart 3 - 6 units 04/10/25 08:00 04/13/25 16:27 Insulin Aspart (*Bkc) 100 Units/Ml SUB-Q Not Given TIDWM [facility] Protocol Insulin Aspart 1 - 3 units 04/10/25 21:00 04/12/25 21:10 Insulin Aspart (*Bkc) 100 Units/Ml SUB-Q Not Given HS [facility] Protocol Insulin Glargine 15 units 04/10/25 09:00 04/13/25 08:54 Insulin Glargine (*Bkc) 100 Units/Ml SUB-Q 15 units Q12HR [facility] Administration Levothyroxine Sodium 75 mcg 04/10/25 06:30 04/13/25 06:01 Levothyroxine Sodium 75 Mcg Tablet PO 75 mcg DAILY@0630 [facility] Administration Metronidazole 500 mg 04/10/25 22:00 04/13/25 13:54 Metronidazole 500 Mg Tablet PO 500 mg Q8HR [facility] Administration Nitroglycerin 0.4 mg 04/12/25 08:41 04/12/25 08:53 Nitroglycerin Sl 0.4 Mg Tablet SUBLINGUAL 0.4 mg Q5MIN PRN Administration Chest Pain Ondansetron HCl 4 mg 04/13/25 09:54 04/13/25 09:57 Ondansetron Inj 4 Mg/2 Ml Vial IV PUSH 4 mg Q4H PRN Administration Nausea And Vomiting Senna/Docusate Sodium 1 tab 04/10/25 21:00 04/12/25 21:09 Senna/Docusate Sodium Tablet PO 1 tab HS GIOVANY Administration Tamsulosin HCl 0.4 mg 04/10/25 09:00 04/13/25 08:53 Tamsulosin Hcl 0.4 Mg Capsule PO 0.4 mg DAILY GIOVANY Administration Tramadol HCl 50 mg 04/10/25 04:21 Tramadol Hcl (*Crx) 50 Mg Tablet PO Q8H PRN pain 4-10 Radiology Results: ITS Impressions Chest CTA 04/09/25 22:33 IMPRESSION: No pulmonary embolus. No thoracic aortic dissection. Multifocal pneumonia, as detailed above. Chest X-Ray 04/13/25 16:01 IMPRESSION: Improving airspace disease in the left upper and midlung. Stable/worsening airspace disease in the right lung and left lower lung Labs Labs: Laboratory Results - last 24 hr 04/12/25 04/12/25 04/13/25 16:22 20:59 04:01 Sodium 137 Potassium 3.5 Chloride 103 Carbon Dioxide 26 Anion Gap 8 BUN 24 H Creatinine 1.24 Estim Creat Clear Calc 35 Estimated GFR 55 L Glucose 80 POC Capillary Glucose 240 H 141 H Calcium 8.9 Magnesium 1.6 04/13/25 04/13/25 04/13/25 07:16 08:26 11:33 Sodium Potassium Chloride Carbon Dioxide Anion Gap BUN Creatinine Estim Creat Clear Calc Estimated GFR Glucose POC Capillary Glucose 70 140 H 101 Calcium Magnesium 04/13/25 16:13 Sodium Potassium Chloride Carbon Dioxide Anion Gap BUN Creatinine Estim Creat Clear Calc Estimated GFR Glucose POC Capillary Glucose 158 H Calcium Magnesium Quality VTE Prophylaxis VTE prophylaxis: pharmacologic ordered ( heparin drip per protocol)
[2025-04-13 20:10] LABS: Glucose Point of Care 173 mg/dl (65-105)
[2025-04-13] MEDS: SENNA/DOCUSATE SODIUM TABLET 1 TAB PO (20:45)
[2025-04-13] MEDS: ATORVASTATIN 40 MG TABLET 80 MG PO (20:45)
[2025-04-13] MEDS: DICLOFENAC SODIUM 1% 100 GM GEL (*BKC) 1 APPLIC TOPICAL (20:46)
[2025-04-14] VITALS: PULSE 67
[2025-04-14 04:00] VITALS: PULSE 73
[2025-04-14 04:16] LABS: Hematocrit 27.2 % (42.0-52.0); Hemoglobin 8.5 g/dL (14.0-18.0); Mean Corpuscular HGB Conc 31.3 g/dl (32-36); Mean Corpuscular Hemoglobin 31.3 pg (26-34); Mean Platelet Volume 9.8 fl (7.4-10.4); Platelet Count Result 212 k/mm3 (150-375); Red Blood Count 2.72 M/mm3 (4.6-6.20); Red Cell Distribution Width 13.2 % (11.5-14.5); White Blood Count 8.6 K/mm3 (4.5-10.0)
[2025-04-14 04:30] LABS: Anion Gap 7 mmol/L (4-12); Blood Urea Nitrogen 24 mg/dL (9-20); Calcium 8.8 mg/dL (8.4-10.2); Carbon Dioxide 26 mmol/L (22-30); Chloride 105 mmol/L (98-107); Estimated CRCL calculation 32 ml/min; Estimated Glomerular Filt Rate 51; Glucose 74 mg/dL (65-110); Magnesium 1.7 mg/dL (1.6-2.3); Potassium 3.5 mmol/L (3.4-5.0); Sodium 138 mmol/L (137-145)
[2025-04-14] MEDS: metroNIDAZOLE 500 MG TABLET PO ×2 (05:42→13:57)
[2025-04-14] MEDS: LEVOTHYROXINE SODIUM 75 MCG TABLET PO (05:42)
[2025-04-14 07:57] LABS: Glucose Point of Care 86 mg/dl (65-105)
[2025-04-14 08:00] VITALS: BP 114/66; PULSE 106; PULSE 82; RESP 18; TEMP 36.4; O2SAT 96
[2025-04-14] MEDS: DICLOFENAC SODIUM 1% 100 GM GEL (*BKC) 1 APPLIC TOPICAL (09:01)
[2025-04-14] MEDS: traMADol HCL (*CRX) 50 MG TABLET PO (09:03)
[2025-04-14] MEDS: ASPIRIN 81 MG ENTERIC TABLET PO (09:04)
[2025-04-14] MEDS: GABAPENTIN 300 MG CAPSULE 600 MG PO ×2 (09:04→13:56)
[2025-04-14] MEDS: FLUoxetine HCL 10 MG CAPSULE PO (09:04)
[2025-04-14] MEDS: DOXYCYCLINE HYCLATE 100 MG TABLET PO (09:04)
[2025-04-14] MEDS: TAMSULOSIN HCL 0.4 MG CAPSULE PO (09:04)
[2025-04-14] MEDS: CYANOCOBALAMIN 1,000 MCG TABLET 1000 MCG PO (09:04)
[2025-04-14] MEDS: CLOPIDOGREL BISULFATE 75 MG TABLET PO (09:04)
[2025-04-14] MEDS: FINASTERIDE 5 MG TABLET PO (09:04)
--- NOTE | 2025-04-14 10:55 | PM.DS ---
DS: Admitting Diagnosis Discharge Date 04/14/25 Admitting Diagnosis Low oxygen saturations, chest pain DS: Discharge Diagnosis Discharge Diagnosis (1) Multifocal pneumonia: Code(s): J18.9 - Pneumonia, unspecified organism Status: Acute (2) Hypoxic respiratory failure: Qualifiers: Chronicity: acute Qualified Code(s): J96.01 - Acute respiratory failure with hypoxia Code(s): J96.91 - Respiratory failure, unspecified with hypoxia Status: Acute (3) Non-STEMI (non-ST elevated myocardial infarction): Code(s): I21.4 - Non-ST elevation (NSTEMI) myocardial infarction Status: Acute (4) Sepsis: Qualifiers: Acute respiratory failure type: with hypoxia Sepsis acute organ dysfunction status: with acute organ dysfunction Sepsis type: sepsis due to unspecified organism Severe sepsis acute organ dysfunction type: acute respiratory failure Severe sepsis shock status: without septic shock Qualified Code(s): A41.9 - Sepsis, unspecified organism; R65.20 - Severe sepsis without septic shock; J96.01 - Acute respiratory failure with hypoxia Code(s): A41.9 - Sepsis, unspecified organism Status: Acute (5) Type 2 diabetes mellitus with hyperglycemia, with long-term current use of insulin: Code(s): E11.65 - Type 2 diabetes mellitus with hyperglycemia; Z79.4 - nursing home (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 Patient been placed on empiric antibiotic therapy with Rocephin and doxycycline. Will obtain urine pneumococcal and Legionella . Blood cultures have been obtained and are pending. Will monitor CBC. Will wean oxygen as tolerated. the patient met sepsis criteria and received 30 mL/kilos fluid bolus. He does have some mild JVD but heart rate has improved in besides his chronic mild lower extremity edema appears relatively euvolemic. He does still have some dry mucous membranes. Will encourage oral fluid intake. Will monitor strict I&O's and daily weights. Sepsis criteria met with tachycardia, leukocytosis in the setting of multifocal pneumonia. Patient did have an elevated D-dimer but CTA ruled out pulmonary embolism. The patient did present with chest pain per EMS report but is not having any current chest pain. Patient's troponins do fit criteria for non STEMI. Patient has been started on heparin drip. Will resume the patient's home dual anti-platelet medications, statin therapy and antihypertensives. Patient has type 2 diabetes mellitus with hyperglycemia. Will continue home long-acting insulin and will add moderate sliding scale insulin Accu-Cheks a.c. HS and hypoglycemia protocol. Patient has chronic kidney disease and creatinine is around the patient's baseline. Will repeat electrolyte panel in a.m. and monitor urine output closely. Will avoid nephrotoxic medications. Patient does have megaloblastic anemia. Will check B12 and folic acid level to rule out vitamin deficiency. 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 patient's UA is abnormal but does not appear to be overtly infected. Will await urine cultures. 84 y/o male presented with shortness of breath, is found to have multifocal pneumonia being treated with ceftriaxone and Zithromax, will Flagyl to cover for anaerobics, patient stats feeling much better compared to when he arrived, patient has elevated tropes in the range of NSTEMI possibly demand ischemia due to hypoxia due to multifocal pneumonia, patient is being treated with heparin for 48hrs which now stopped, today patient complained of CP seen by security escort does not suspect STEMI, most likely pain due to pneumonia, recommendation to CPM, today patient stats he is feeling better and he does not have CP any more, his CXR shows some improvement in the pneumonia, once the patient is clinically stable, will have PT/OT evaluate the patient will benefit going to acute rehab. DS: Summary Hospital Course Hospital Course: 84 y/o male presented with shortness of breath, is found to have multifocal pneumonia being treated with ceftriaxone and Zithromax, will Flagyl to cover for anaerobics, patient stats feeling much better compared to when he arrived, patient has elevated tropes in the range of NSTEMI possibly demand ischemia due to hypoxia due to multifocal pneumonia, patient is being treated with heparin for 48hrs which now stopped, today patient complained of CP seen by security escort does not suspect STEMI, most likely pain due to pneumonia, recommendation to CPM, today patient stats he is feeling better and he does not have CP any more, his CXR shows some improvement in the pneumonia, once the patient is clinically stable, today patient stats he is feeling better compared to when he arrived, he is clinically stable, will discharge him today. Time Spent with Patient Time attestation: Total time spent providing and/or coordinating discharge services: Exam Narrative: Patient is comfortable, NAD HEENT: eyes are clear and none icteric LUNGS: Bilateral fair entry with rhonchi HEART: RR S1S2 ABD: BS+, Soft and nontender Lower extremities: no edema SKIN: nonjaundiced Neuro: grossly intact. DS: Data Data Completed and Pending Labs on day of discharge: Labs from last 24 hours 04/14/25 04/14/25 04/13/25 07:46 04:05 20:07 WBC 8.6 RBC 2.72 L Hgb 8.5 L Hct 27.2 L MCV 100.0 MCH 31.3 MCHC 31.3 L RDW 13.2 Plt Count 212 MPV 9.8 Sodium 138 Potassium 3.5 Chloride 105 Carbon Dioxide 26 Anion Gap 7 BUN 24 H Creatinine 1.33 H Estim Creat Clear Calc 32 Estimated GFR 51 L Glucose 74 POC Capillary Glucose 86 173 H Calcium 8.8 Magnesium 1.7 04/13/25 04/13/25 16:13 11:33 WBC RBC Hgb Hct MCV MCH MCHC RDW Plt Count MPV Sodium Potassium Chloride Carbon Dioxide Anion Gap BUN Creatinine Estim Creat Clear Calc Estimated GFR Glucose POC Capillary Glucose 158 H 101 Calcium Magnesium Preliminary micro results at discharge 04/09/25 21:16 Blood Culture - Preliminary Blood 04/09/25 21:16 Blood Culture - Preliminary Blood Discharge Plan Discharge Attending physician on discharge: Rhona Serrano Consulting providers: Rissa Ho; Mary Figueroa; Rhona Serrano; Yina Bauer; Kylie Neri; Manjeet Vance; Marcela Ndiaye; Peña Pandya Discharging Clinician: Clara Florez Patient Disposition: [place] Retirement/Asst Living Activity: as tolerated Diet: heart healthy Discharge Instructions: patient to follow up with his security escort is in 4 weeks, patient to follow up with his primary care provider as soon as possible. Patient Instructions: Antibiotic Form, Community Acquired Pneumonia (DC), Urinary Tract Infection in Older Adults (DC) Patient Language: Djiboutian Stand Alone Forms: General Discharge Information Follow-up/Referrals: Viraj Schafer MD [Primary Care Provider] - Rissa Ho MD [Physician] - (Follow up in 4 weeks. Call office to set up appointment.) Discharge Medications: New metronidazole 500 mg Tablet 500 mg PO Q8HR Qty: 6 0RF doxycycline hyclate 100 mg Tablet 100 mg PO Q12HR Qty: 6 0RF Continued insulin glargine 100 unit/mL (3 mL) insulin pen 15 unit SUBCUT BID clopidogrel 75 mg tablet 75 mg PO DAILY tamsulosin 0.4 mg capsule 0.4 mg PO DAILY Qty: 90 1RF atorvastatin 40 mg Tablet 80 mg PO HS aspirin 81 mg Tablet,Delayed Release (Dr/Ec) 81 mg PO DAILY gabapentin 600 mg tablet 600 mg PO TID finasteride 5 mg tablet 5 mg PO QAM fluoxetine 10 mg capsule 10 mg PO DAILY ondansetron HCl 4 mg tablet 4 mg PO Q6H PRN (Reason: nausea and vomiting) ferrous sulfate 325 mg (65 mg iron) tablet 325 mg PO DAILY acetaminophen 325 mg capsule 650 mg PO TID PRN (Reason: pain) Senna Plus 8.6-50 mg capsule 1 tab-cap PO HS Patient Comments: May hold for soft stool within 24 hours. cyanocobalamin (vitamin B-12) 1,000 mcg capsule 1,000 mcg PO DAILY diclofenac sodium 1 % gel 2.25 inch topical BID Rx Instructions: Apply to L Knee BID for chronic pain glucagon HCl [Glucagon (HCl) Emergency Kit] 1 mg recon soln 1 mg IM ONCE Patient Comments: Inject 1mg IM as needed for hypoglycemia per protocol insulin lispro [Humalog U-100 Insulin] 100 unit/mL solution 1 sliding scale dose subcut USEASDIRECTD Rx Instructions: Administer AC and HS If B-200 = 2u; 201-250 = 4u; 251-300 = 6u; 301-350 = 8u; 351-400 = 10u; 401-500 = 12u Over 500 Call provider. tramadol 50 mg tablet 50 mg PO TID Qty: 10 0RF levothyroxine 75 mcg tablet 75 mcg PO DAILY Qty: 90 1RF Date of admission: 04/10/25 00:01 Primary Care Provider: Viraj Schafer Admitting Provider: Rhona Serrano Attending physician on admission: Clara Florez Condition: Stable
[2025-04-14] MEDS: FERROUS SULFATE 325 MG TABLET DR PO (11:41)
[2025-04-14] MEDS: POTASSIUM CHLORIDE 20 MEQ PACKET (FOR LIQUID) 40 MEQ PO (11:42)
[2025-04-14] MEDS: MAGNESIUM OXIDE 400 MG TABLET PO (11:42)
[2025-04-14 11:48] LABS: Glucose Point of Care 90 mg/dl (65-105)
[2025-04-14] MEDS: ACETAMINOPHEN 325 MG TABLET 650 MG PO (11:48)
[2025-04-14 12:00] VITALS: PULSE 91
[2025-04-14 13:40] VITALS: O2SAT 94
[2025-04-14 18:07] LABS: Mycoplasma IgM Antibody Titer 105 U/mL
[2025-04-14 18:44] LABS: Pneumococcal Antigen Urine NOT DETECTED
[2025-04-16 19:09] LABS: Legionella pneumophila Ag Ur NOT DETECTED
== END 2025-04-14 15:04 | DRG 871 ==
LOC: ANHED 23:14 → ANHIMU 04-10 03:39
PROVIDERS: Internal Medicine Interventional Cardiology; Admitting Provider Internal Medicine; Emergency Provider Emergency Medicine; PCP Family Medicine; Visit Provider Family Medicine
DX: A41.9 Sepsis, unspecified organism (principal); J18.9 Pneumonia, unspecified organism; J96.01 Acute respiratory failure with hypoxia; I24.89 Other forms of acute ischemic heart disease; R65.20 Severe sepsis without septic shock; N18.32 Chronic kidney disease, stage 3b; D53.1 Other megaloblastic anemias, not elsewhere classified; E11.22 Type 2 diabetes mellitus with diabetic chronic kidney disease; E03.9 Hypothyroidism, unspecified; E78.5 Hyperlipidemia, unspecified; I25.10 Atherosclerotic heart disease of native coronary artery without angina pectoris; I70.0 Atherosclerosis of aorta; N40.1 Benign prostatic hyperplasia with lower urinary tract symptoms; F03.90 Unspecified dementia, unspecified severity, without behavioral disturbance, psychotic disturbance, mood disturbance, and anxiety; Z20.822 Contact with and (suspected) exposure to COVID-19; Z79.02 Long term (current) use of antithrombotics/antiplatelets; Z79.82 Long term (current) use of aspirin; Z79.4 Long term (current) use of insulin; Z86.73 Personal history of transient ischemic attack (TIA), and cerebral infarction without residual deficits; Z95.2 Presence of prosthetic heart valve; Z95.1 Presence of aortocoronary bypass graft; Z85.048 Personal history of other malignant neoplasm of rectum, rectosigmoid junction, and anus; Z87.891 Personal history of nicotine dependence
CPT/HCPCS: 36415; 36600; 71045; 71275; 80048; 80053; 81001; 82607; 82746; 82805; 82948; 83605; 83690; 83735; 83880; 84100; 84145; 84484; 85018; 85025; 85027; 85380; 85610; 85730; 86738; 87040; 87086; 87449; 87637; 87641; 87899; 93005; 96365; 96367; 97110; 97161; 97165; 97530; 99291; A9270; C8929; J0696; J1644; J1815; J2405; J7120; Q9957; Q9967

== ENCOUNTER 2025-06-18 16:16 | Inpatient (IN) | payer MEDICARE, MEDICAID, SELFPAY ==
--- NOTE | ~2025-06-18 | US_ITS ---
US renal BI 06/19/2025 12:39 Procedure: Realtime transabdominal ultrasound of the kidneys and bladder. Indication: Renal failure Comparison: Ultrasound dated 01/18/2020 Findings: There is right renal atrophy. Right kidney measures 7.8 cm. There is bilateral hydronephros is, mild on the right and moderate on the left. Bladder is not well distended for evaluation. The rig ht kidney measures 7.8 cm and left kidney measures left cm. Bladder within normal limits. Impression: 1: Bilateral hydronephrosis, left greater than right. 2: Right renal atrophy. Reviewed, dictated and finalized at location A. Impression: 1: Bilateral hydronephrosis, left greater than right. 2: Right renal atrophy.
--- NOTE | ~2025-06-18 | XR_ITS ---
EXAMINATION: XR chest 1V portable Exam Date/Time: 06/18/2025 18:42 CDT HISTORY: edema Comparison: 04/13/2025. RESULT: Lines, tubes, and devices: Intact sternotomy wires. Cardiac valve replacement. Mediastinal surgical clips and ostial marker. Lungs and pleura: Rightward rotation. Patchy airspace opacities throughout the right lung. Patchy lef t mid and lower lung opacities. Mild left and moderate right pleural blunting with fluid tracking hiro ng the right pleural space. Cardiomediastinal silhouette: Stable. Other: No acute osseous or upper abdominal finding. IMPRESSION: Patchy bilateral airspace disease may represent edema or infection. Moderate right and small left ple ural effusions Reviewed, dictated and finalized at location K. IMPRESSION: Patchy bilateral airspace disease may represent edema or infection. Moderate ri ght and small left pleural effusions
[2025-06-18 16:14] VITALS: BP 84/62; PULSE 92; RESP 12; RESP 20; TEMP 36.4; O2SAT 96
--- NOTE | 2025-06-18 16:26 | PC.NURSE ---
EDP, Dr. Vincent made aware of pt BP upon arrival. No new orders at this time.
--- OUTSIDE RECORDS SUMMARY | 2025-06-18 18:02 | XMS_ITS | Clinical Summary ---
Author Organization [facility] [employer] Address [address] [place] [address] Care Team Providers Care Manager Specialty Name Role Phone Unavailable Primary Care Provider Unavailabl e Source Comments [facility] [employer],non-owned Affiliates and Associated Physician Practices is amultiple site organization consisting of ambulatory clinics and hospital sitesin [place], [place], [place] and [place]. This disclosure is being madepursuant to the Care Everywhere program and may not contain all information available regarding this patient. Last updated 18.[facility] Allergies No known active allergies Medications * [...] and heating? 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
--- OUTSIDE RECORDS SUMMARY | 2025-06-18 18:02 | XMS_ITS | Continuity of Care Document ---
Author Organization [facility] Address [address] [place] [address] [place] [address] Phone Care Team Providers Care Mail Delivery Supervisor Name Role Phone Omega Motley Unavailable Unavailable Procedures Procedure Date Eye Exam & Treatment Refraction Eye Exam & Treatment Refraction Office/outpatient Visit, Est Office/outpatient Visit, Est Post-op Follow-up Visit Post-op Follow-up Visit Remove Cataract, Insert Lens Advance Directives Directive Yes / No Effective Date File Name No Information Encounters Encounter Description Practice Location Reason(s) For Visit Diagnoses Date Provider Providers Copied on Encounter formerly [facility], [address] [place] [address] [address], [place], [place], [id number], tel:[phone] [facility] No Information Mar-0 8-201 0 Tolu Duff. [address] [facility] [place] , [address], [place], [place], [facility], [place]. tel:[phone] formerly [facility], [id number] [place] [address] [address], [place], [place], [id number], [place] tel:[phone] [facility] No Information Mar-0 4-200 9 Tolu Duff. [address] [facility] [place] , [address], [place], [place], [facility], [place]. tel:[phone] Office/outpat ient Visit, Est formerly [facility], [address] [place] [address] [address], [place], [place], [id number], [place] tel:[phone] [facility] [place] No Information 200 8 Doisy Ednathan. [address] [facility] , [address], [place], [facility], [place]. tel:[phone] Office/outpat ient Visit, Est formerly [facility], [address] [place] [address] [address], [place], [place], [id number], [place] tel:[phone] [facility] No Information 7 Doisy Ednathan. [address] [facility] , [address], [place], [facility], [place]. tel:[phone] formerly [facility], [address] [place] [address] [address], [place], [place], [id number], tel:[phone] [facility] No Information 7 Doikeisha Ednathan. [address] [facility] , [address], [place], [facility], [place]. tel:[phone] formerly [facility], [address] [place] [address] [address], [place], [place], [id number], [place] tel:[phone] [facility] No Information Nov-200 6 Doikeisha Ednathan. [address] [facility] , [address], [place], [facility], [place]. tel:[phone] formerly [facility], [address] [place] [address] [address], [place], [place], [id number], [place] tel:[phone] [facility] Information Nov-2 8200 6 Doisy Ednathan. [address] [facility] , [address], [place], [facility], . tel:[phone] Family History Family Member Type Diagnosis Age At Onset No Information Payers Payer name Insurance type Covered republican ID Authoriza tion(s) No Information Social History Type Description Quantity Date Captured Comments Sex Male Smoking Status No Information Chief Complaint And Reason For Visit No Information Reason For Referral Reason For Referral No Information History Of Present Illness Encounter Date Complaint History Of Prese nt Illness No Information Functional Status Date Functional Assessmen t No Information Instructions Date Instruction Additional Infor mation No Information Assessments Type Assessment Date No Information Patient Care Teams Name Effective Dates (start - stop) Status Members No Information
--- OUTSIDE RECORDS SUMMARY | 2025-06-18 18:02 | XMS_ITS | Encounter Summary ---
Author Name [facility] Organization [facility] [place] Address [address] [place] [address] Care Team Providers Care Crozer Name Role Phone JASON BOOTH Primary Care Provider [facility] Insurance Providers: All historical and current Section Date Range: From patient's date of to the date document was created. This section includes the names of all active insurance providers for the patient. Insurance Provider Type of Coverage Plan Name Start of Policy Coverage End of Policy Coverage Group Number Member ID Insurance Provider's Telephone Number Policy Saini's Name Patient's Relationship to Policy Saini MEDICARE (WNR) MEDICARE ([place]) PART A Jun 01, 2004 PART A [id number] SILVANO PAIGE PATIENT MEDICARE (WNR) MEDICARE (M) PART B Jun 01, 2004 PART B [id number] [phone] SILVANO PAIGE PATIENT Selected Encounter This section includes the information on record at [place] for the Encounter. Date/Time Encounter Type Encounter Description Reason Provider Source Oct 30, 2024 11:30 AM Outpatient Encounter UROLOGY CLINIC ICD-10-CM N40.0 Benign prostatic hyperplasia without lower urinry tract symp GUS,RALP H J IHE Encounter Template Text not used by [place] Assessments - Encounter Diagnoses This section includes the primary and secondary diagnoses documented for the Encounter. Date/Time Primary/Secondary Diagnosis Diagnosis Name Provider Source Oct 30, 2024 11:30 AM PRIMARY Benign prostatic hyperplasia without lower urinry tract symp GUSKARMEN Saul [facility] Oct 30, 2024 11:30 AM SECONDARY Elevated prostate specific antigen [PSA] KARMEN WEBER [facility] Plan of Treatment: Future Appointments (+ 6 months) and Future Tests (+/- 45 days) The Plan of Treatment section includes future care activities for the patient from all [place] [facility] This section includes future appointments and future orders which are active, pending or scheduled. Future Appointments This section includes appointments that were scheduled to occur 6 months from the date of the Encounter, up to a maximum of 20 appointments. The data comes from all [place] treatment facilities. Appointment Date/Time Appointment Type Appointme nt Facility Name Jan 15, 2025 12:00 PM AMBULATORY - SURGERY [facility] Jan 15, 2025 01:00 PM AMBULATORY - SURGERY [facility] Social History: Smoking Status (Most current) and Tobacco Use (All prior to encounter date) This section includes the most current, and the historical, smoking and tobacco- related health factors from the [place] facility where the Encounter took place. Current Smoking Status This section includes the most current smoking, or tobacco-related health factor, from the [place] facility where the Encounter took place. Date/Time Current Smoking Status Comment Melo lamar Mar 02, 2024 11:51 AM ORYX ADMIT TOBACCO SCREEN NO [facility] Tobacco Use History This section includes a history of the smoking, or tobacco-related health factors, that were collected on or before the date of the Encounter. The data comes from the [place] facility where the Encounter took place. Date/Time Smoking Status/Tobacco Use Comment Erica acclarissa Dec 27, 2023 07:42 PM ORYX ADMIT TOBACCO SCREEN NO [facility] Oct 16, 2023 08:27 PM ORYX ADMIT TOBACCO SCREEN NO [facility] Nov 04, 2014 12:15 PM QUIT TOBACCO >7 YEARS AGO [facility] Encounter Notes: All associated encounter notes This section contains the clinical notes associated to the Encounter. Date/Time Encounter Note(s) Provider Source Oct 28, 2024 12:18 PM UROLOGY TELEPHONE ENCOUNTER NOTE: LOCAL TITLE: UROLOGY TELEPHONE CONTACT [facility] STANDARD TITLE: UROLOGY TELEPHONE ENCOUNTER NOTE DATE OF NOTE: OCT 28, 2024@12:18 ENTRY DATE: OCT 28, 2024@12:18:49 AUTHOR: NETTA ENCINAS EXP COSIGNER: KARMEN WEBER URGENCY: STATUS: COMPLETED Spoke with son. Moved to a new facility [facility] and he feels like he is recieving much better care. No further UTIs, thinks his LUTS are well managed on current regimen. Has not been catheterized. We discussed adding finasteride to reduce risk of AUR or surgery. Will need to figure out how to get this to him at his facility and refill flomax. RTC 6 mo w PSA. /ned/ Netta Encinas MD Resident, Urology Signed: 10/28/2024 12:23 /end/ KARMEN WEBER MD Staff Physician, Urology Cosigned: 10/28/2024 12:47 NETTA ENCINAS [facility]
--- OUTSIDE RECORDS SUMMARY | 2025-06-18 18:03 | XMS_ITS | Clinical Summary ---
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 Medical Group Cardiology [address] [place] [phone] Kylie Neri NP 04/16/[address] [facility] Medical Group Cardiology [address] [place] [phone] Rissa Ho MD from Last 3 Months Surgical History Surgery Date Site/Laterality Comments CARDIAC [...] on file Legal Sex Male 7:32 AM MONEY EXAMINER Gender Identity Not on file Sexual Orientation [...] (214 lb 6.4 oz) 12/28/2022 10:10 PM MONEY EXAMINER Height 176.5 cm (5' 9.49) 12/28/2022 10:[address] Body Mass Index 31.22 12/28/2022 10:10 PM MONEY EXAMINER Plan of Treatment Health Maintenance Due Date Last Done Comments Albumin Creatinine Ratio, Urine 1940 Depression Screening 1940 Dilated Eye Exam 1939 Foot Exam 1939 Hepatitis B Screening 1957 Well Visit 65+ 2004 Pneumococcal vaccine 65+ (2 of 2 - PPSV23) 02/08/2016 12/14/2015, 09/03/2013, 10/31/2004 Hemoglobin A1C 06/28/2023 12/29/2022 Lipid Panel 12/29/2023 12/29/2022 Fall Risk Assessment 12/31/2023 12/31/2022 Covid-19 Vaccine (3 - 2023-2 5 season) 2024 04/10/2021, 03/20/2021 Influenza Vaccine (#1) 2025 12/02/2002 eGFR 08/09/2025 08/09/2024, 12/04, 12/30/2022, Additional history exists DTaP/Tdap/Td Vaccine (4 - Td or Tdap) 09/02/2025 09/02/2015, 09/01/2014, 12/02/2007 Zoster Vaccine Completed 2022, 12/02, 07/05/2009 Procedures Procedure Name Priority Date/Time Associated Diagnosis Comments CARDIOLOGY DOCUMENT SCAN Routine 04/12/2025 4:35 PM CDT CARDIOLOGY DOCUMENT SCAN Routine 04/11/2025 8:01 AM CDT CARDIOLOGY DOCUMENT SCAN Routine 04/10/2025 7:38 AM CDT EGFR STAT 08/09/2024 11:05 AM CDT HEMOGLOBIN A1C Routine 12/29/2022 4:32 AM MONEY EXAMINER LIPID PANEL Routine 12/29/2022 4:32 AM MONEY EXAMINER from Last 3 Months or Most Recently Relevant to Health Maintenance Results * Cardiology Document Scan (04/12/2025 4:35 PM CDT) Anatomical Region Laterality Modality Other us Kylie Neri NP CV CARDIAC SERVICES PROCEDUR ES Final Result * Cardiology Document Scan (04/11/2025 8:01 AM CDT) Anatomical Region Laterality Modality Other us Rissa Ho MD CV CARDIAC SERVICES PROCEDU RES Final Result * Cardiology Document Scan (04/10/2025 7:38 AM CDT) Anatomical Region Laterality Modality Other Rissa Ho MD CV CARDIAC SERVICES PROCEDU RES Final Result * (ABNORMAL) eGFR (08/09/2024 11:05 AM CDT) [...] LAB BLOOD ORDERABLE S Final Result MAHESH [address] [facility] [place] [address] * (ABNORMAL) Hemoglobin A1c (12/29/2022 4:32 AM MONEY EXAMINER) Hgb A1C 7.5(H) 4.0 - 5.6 % MAHESH MAGANA Estimated Average Glucose 169 mg/dL MAHESH MAGANA Comment: The ADA recommends reporting an estimated Average Glucose (eAG) with all Hemoglobin A1c results using the equation derived from a study of 507 normal and diabetic adults. Minority populations were underrepresented and children were not included. (Diabetes Care 31:4449-6476, 2008). The eAG is not equivalent to a fasting glucose. Blood 12/29/2022 4:32 AM MONEY EXAMINER 12/29/2022 8:23 PM MONEY EXAMINER Todd Briceno MD LAB BLOOD ORDERABLES Final Result MAHESH MAGANA [id number] Department [place] [address] * (ABNORMAL) Lipid panel (12/29/2022 4:32 AM MONEY EXAMINER) Cholesterol 194 30 - 199 mg/dL MAHESH MAGANA Comment: Interpretive Data Ages [...] 6 MAHESH MAGANA Blood 12/29/2022 4:32 AM MONEY EXAMINER 12/29/2022 8:23 PM MONEY EXAMINER Todd Briceno MD LAB BLOOD ORDERABLES Final Result MAHESH [address] [place] [address] from Last 3 Months or Most Recently Relevant to Health Maintenance Insurance [facility]ICARE ADVANTAGE [facility] Address: [address] [address] [place] [address] MEDICARE [facility] MEDICARE IDID Advance Directives For more information, please contact: [phone] Documents on File Type Date Recorded Patient Barrel Planer Expl anation ADVANCE DIRECTIVE 08/10/2024 3:10 PM POLST - Phys Order for PT Preferences ADVANCE DIRECTIVE 08/10/2024 3:10 PM Power of Private Banker-Medical * Full Code (Latest Code Status on File) Date Activated Date Inactivated Comments 12/28/2022 10:55 PM 12/31/2022 10:03 PM * Full Code Date Activated Date Inactivated Comments 12/28/2022 10:55 PM 12/28/2022 10:55 PM * Full Code Date Activated Date Inactivated Comments 12/28/2022 7:45 PM 12/28/2022 10:55 PM * Full Code Date Activated Date Inactivated Comments 06/16/2018 11:55 AM 06/16/2018 1:55 PM Care Teams Oracle Database Developer Relationship Specialty Start Date End Date Richard Cartagena MD [address] [place] [id number] PCP - General 02/23/13
--- OUTSIDE RECORDS SUMMARY | 2025-06-18 18:03 | XMS_ITS | Referral Summary ---
Author Organization [facility] Address [address] [place] [address] Care Team Providers Care Computer Systems Consultant Name Role Phone Richard Cartagena MD Primary Care Provider [phone] Encounters Date Type Department Care Team Description 04/20/2025 Orders Only [facility] Medical [facility] Cardiology [address] [facility] [address] [place] [phone] Kylie Neri NP 04/16/2025 Orders Only [facility] Cardiology [address] [place] [phone] Rissa Ho MD from Last 3 Months Allergies Active Allergy Reactions Criticality Noted Date [...] hours as needed for pain or fever 04/25/202 4 Active clopidogreL (PLAVIX) 75 mg tablet Take 1 tablet (75 mg total) by mouth daily 4 Active levothyroxine (SYNTHROID) 75 mcg tablet Take 1 tablet (75 mcg total) by mouth distribution 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 before 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 4 Active meclizine (ANTIVERT) 25 [...] artery disease of n ative artery of [place] heart with stable angina pectoris 12/29/2022 History [...] (06/16/2018): Added automatically from request for surgery [id number] Chest pain Social History Tobacco Use Types [...] on file Legal Sex Male 7:32 AM BUDGET SPECIALIST Gender Identity Not on file Sexual Orientation [...] (214 lb 6.4 oz) 12/28/2022 10:10 PM BUDGET SPECIALIST Height 176.5 cm (5' 9.49) 12/28/2022 10:[address] Body Mass Index 31.22 12/28/2022 10:10 PM BUDGET SPECIALIST Plan of Treatment Not on file Procedures Procedure Name Priority Date/Time Associated Diagnosis Comments CARDIOLOGY DOCUMENT SCAN Routine 04/12/2025 4:35 PM CDT CARDIOLOGY DOCUMENT SCAN Routine 04/11/2025 8:01 AM CDT CARDIOLOGY DOCUMENT SCAN Routine 04/10/2025 7:38 AM CDT EGFR STAT 08/09/2024 11:05 AM CDT HEMOGLOBIN A1C Routine 12/29/2022 4:32 AM BUDGET SPECIALIST LIPID PANEL Routine 12/29/2022 4:32 AM BUDGET SPECIALIST from Last 3 Months or Most Recently [...] MD LAB BLOOD ORDERABLE S Final Result [facility] [address] [facility] [place] [address] * (ABNORMAL) Hemoglobin A1c (12/29/2022 4:32 AM BUDGET SPECIALIST) Hgb A1C 7.5(H) 4.0 - 5.6 % MAHESH Estimated Average Glucose 169 mg/dL MAHESH MAGANA Comment: The ADA recommends reporting an estimated Average Glucose (eAG) with all Hemoglobin A1c results using the equation derived from a study of 507 normal and diabetic adults. Minority populations were underrepresented and children were not included. (Diabetes Care 31:7349-7698, 2008). The eAG is not equivalent to a fasting glucose. Blood 12/29/2022 4:32 AM BUDGET SPECIALIST 12/29/2022 8:23 PM BUDGET SPECIALIST Todd Briceno MD LAB BLOOD ORDERABLES Final Result MAHESH MAGANA [address] Department [place] [address] * (ABNORMAL) Lipid panel (12/29/2022 4:32 AM BUDGET SPECIALIST) Cholesterol 194 30 - 199 mg/dL MAHESH [...] 6 MAHESH MAGANA Blood 12/29/2022 4:32 AM BUDGET SPECIALIST 12/29/2022 8:23 PM BUDGET SPECIALIST us Todd Briceno MD LAB BLOOD ORDERABLES Final Result MAHESH MAGANA [id number] Department [place] [address] from Last 3 Months or Most Recently Relevant to Health Maintenance Insurance [facility] ADMIN[facility]ATION [facility] MEDICARE ADVANTAGE MEDICARE [facility] MEDICARE [facility] Advance Directives For more information, please contact: [phone] Documents on File Type Date Recorded Patient Social Media Marketer Expl anation ADVANCE DIRECTIVE 08/10/2024 3:10 PM POLST - Phys Order for PT Preferences ADVANCE DIRECTIVE 08/10/2024 3:10 PM Power of Clothing Consultant-Medical * Full Code (Latest Code Status on File) Date Activated Date Inactivated Comments 12/28/2022 10:55 PM 12/31/2022 10:03 PM * Full Code Date Activated Date Inactivated Comments 12/28/2022 10:55 PM 12/28/2022 10:55 PM * Full Code Date Activated Date Inactivated Comments 12/28/2022 7:45 PM 12/28/2022 10:55 PM * Full Code Date Activated Date Inactivated Comments 06/16/2018 11:55 AM 06/16/2018 1:55 PM Care Teams Computer Systems Consultant Relationship Specialty Start Date End Date Richard Cartagena MD [address] [place] [address] PCP - General 02/23/13
--- OUTSIDE RECORDS SUMMARY | 2025-06-18 18:03 | XMS_ITS | Encounter Summary ---
Author Name [facility] [place] Organization [facility] [place] Address [address] [place] [address] Care Team Providers Care Cartography Technician Name Role Phone JASON BOOTH Primary Care Provider [facility] Insurance Providers: All historical and current Section [...] PART A Jun 01, 2004 PART A [id number] SILVANO PAIGE PATIENT MEDICARE (WNR) MEDICARE (M) PART B Jun 01, 2004 PART B [id number] SILVANO PAIGE PATIENT Selected Encounter This section includes the information on record at [place] for the Encounter. Date/Time Encounter Type Encounter Description Reason Provider Source Jul 10, 2024 02:30 PM OFFICE O/P EST MOD 30 MIN VASCULAR SURGERY ICD-10-CM I65.22 Occlusion and stenosis of left carotid artery ZAHEER RAUSCH Encounter Template Text not used by [place] Assessments - Encounter Diagnoses This section includes the primary and secondary diagnoses documented for the Encounter. Date/Time Primary/Secondary Diagnosis Diagnosis Name Provider Source Jul 10, 2024 03:21 PM PRIMARY Occlusion and stenosis of left carotid artery RICHARD ROWELL [facility] Plan of Treatment: Future Appointments (+ 6 months) and Future Tests (+/- 45 days) The Plan of Treatment section includes future care activities for the patient from all [place] treatmentfacilities. This section includes future appointments and future orders which are active, pending or scheduled. Future Appointments This section includes appointments that were scheduled to occur 6 months from the date of the Encounter, up to a maximum of 20 appointments. The data comes from all [place] treatment facilities. Appointment Date/Time Appointment Type Appointme nt Facility Name Aug 10, 2024 10:30 AM AMBULATORY - SURGERY [facility] Lab Results: +/- 30 days of the encounter This section includes the Chemistry and Hematology Lab Results on record with [place] for the patient. Radiology Reports and Pathology Reports are provided separately, in subsequent sections. Lab Results This section contains the Chemistry/Hematology Results that were resulted 30 days before or 30 daysafter the date of the Encounter. Date/Time Source Result Type Result - Unit Interpretation Reference Range Specimen Type Comment Jun 18, 2024 05:35 PM [facility] COMPREHENSIVE METABOLIC PANEL PLASMA Specimen Type: PLASMA Comment: Aspartate Transaminase result may show positive bias due to hemolysis. K result canceled due to hemolysis. Specimen moderately hemolyzed. <K> Cancelled due to moderate hemolysis. NOTIFIED CYNTHIA ZAMBRANO RN@[id number] [facility] Ordering Provider: MARCIA ALVAREZ Report Released Date/Time: Jun 18, 2024 05:31 PM Reporting Lab: [facility] [address] [facility] [id number] Performing Lab: [facility] [address] [facility] [address] CREATININE 1.36 mg/dL H 0.7-1.3 UREA NITROGEN 12.0 mg/dL 9.0-25.0 GLUCOSE 171 mg/dL H 72-99 SODIUM 136 meq/L 136-145 POTASSIUM canc meq/L 3.5-5 CHLORIDE 104 meq/L 98-107 CARBON DIOXIDE 21 meq/L L 22-31 CALCIUM 9.6 mg/dL 8.4-10.4 PROTEIN 7.7 g/dL 6-8.6 ALBUMIN 3.6 g/dL 3.4-5 TOTAL BILIRUBIN 0.4 mg/dL 0.2-1.2 ALKALINE PHOSPHATASE 122 U/L 40-150 AST/SGOT 25 U/L 5-34 ALT/SGPT 7 U/L L 8-40 EGFR (CKD-EPI 2020) 51.0 >60 Jun 18, 2024 05:35 PM [facility] CBC BLOOD Specimen Type: BLOOD No comment entered. Ordering Provider: MARCIA ALVAREZ Report Released Date/Time: Jun 18, 2024 05:31 PM Reporting Lab: [facility] [address] [facility] [id number] Performing Lab: [facility] [address] [facility] [phone] WBC 9.5 10*3/uL 3.6-11.2 RBC 4.01 10*6/uL L 4.10-5.70 HGB 12.6 g/dL L 13.1-16.8 HCT 37.3 L 38.2-48.4 MCV 93.0 fL 80.0-100.0 MCH 31.4 pg 27.0-34.0 MCHC 33.8 g/dL 33.0-36.0 PLT 275 10*3/uL 150-400 MPV 10.3 fL 7.5-11.2 RDW 13.0 11.8-15.1 NEUTROPHILS 54.9 MONOCYTES 7.1 EOSINOPHILS 2.6 BASOPHILS 2.6 POIKILOCYTOSIS 1+ PAPPENHEIMER BODIES 0 LYMPHOCYTES 31.0 ATYPICAL LYMPHOCYTES 1.8 PLT EST-CV ADEQUATE ADEQUATE BASO#-MDIFF 0.25 10*3/uL H 0.01-0.20 EO#-MDIFF 0.25 10*3/uL 0.00-0.60 MONO#-MDIFF 0.67 10*3/uL 0.19-0.80 LYMPH#-MDIFF 3.12 10*3/uL 0.77-4.50 NEUT#-MDIFF 5.22 10*3/uL 2.10-8.00 Vital Signs: All taken on the encounter date This section contains inpatient and outpatient Vital Signs collected on the date of the Encounter. Date/Time Temperature Pulse Blood Pressure Respiratory Rate SP02 Pain Height Weight Body Mass Index Source Jul 10, 2024 03:13 PM 97.3 76 148/79 20 98 0 69 168.9 25 [facility] Social History: Smoking Status (Most current) and Tobacco Use (All prior to encounter date) This section includes the most current, and the historical, smoking and tobacco- related health factors from the [place] facility where the Encounter took place. Current Smoking Status This section includes the most current smoking, or tobacco-related health factor, from the [place] facility where the Encounter took place. Date/Time Current Smoking Status Comment Facil ity Mar 02, 2024 11:51 AM ORYX ADMIT TOBACCO SCREEN NO [facility] Tobacco Use History This section includes a history of the smoking, or tobacco-related health factors, that were collected on or before the date of the Encounter. The data comes from the NE facility where the Encounter took place. Date/Time Smoking Status/Tobacco Use Comment F acility Dec 27, 2023 07:42 PM ORYX ADMIT TOBACCO SCREEN NO [facility] Oct 16, 2023 08:27 PM ORYX ADMIT TOBACCO SCREEN NO [facility] Nov 04, 2014 12:15 PM QUIT TOBACCO >7 YEARS AGO [facility] Radiology Reports: +/- 30 days of the encounter Radiology Reports For cases when an order for radiology services may have been completed prior to the date of the Encounter, the report list includes the Radiology Reports that were completed up to 30 days before dateof the Encounter. For cases when an order for radiology services may have been completed after the date of the Encounter, the report list also includes the Radiology Reports that were completed up to30 days after date of the Encounter. The data comes from all [place] treatment facilities. Date/Time Radiology Report Provider Source Jun 18, 2024 05:[address] HEAD W/O CONT: SILVANO CHANDLER [id number] M Exm Date: JUN 18, 2024@17:57 Req Phys: MARCIA ALVAREZ Loc: [facility]Y [facility]PT 3RD SHIFT (R Img Loc: [facility] Service: Unknown [facility], [address] [place] [address] (Case [id number] COMPLETE) CT HEAD W/O CONT (CT Detailed) CPT:74949 Reason for Study: headache Clinical History: Responsible Attending: marcia alvarez Attending Contact Number: [phone] Resident Contact Number: Allergies listed in CPRS chart: ERTHROMYCIN ESTOLATE, CODEINE, PENICILLIN, INFLUENZA, DOXAZOSIN, EGGS LISINOPRIL, METFORMIN, FISH, SHELLFISH, STRAWBERRIES Creatinine: CREATININE 1.76 H mg/dL 03/15/2024 14:00 /eGFR: STL EGFR (within one year). 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 Comparison: 03/02/2024 Technique: The study was protocoled and supervised at the local [place] facility. 8 series and 298 images were subsequently received by the [place] National Teleradiology Program (NTP) for interpretation. Axial CT of the head was performed without intravenous contrast. Coronal and sagittal reformatted images were obtained. Total DLP (mGy*cm): 722 IV Contrast Not Administered. Findings: No apparent mass, acute hemorrhage or acute cortical infarction. Left frontal and parietal encephalomalacia is again noted, similar to the prior exam. Moderate prominence of the CSF spaces suggesting underlying parenchymal volume loss. Periventricular and subcortical deep white matter changes are noted suggesting the sequela of chronic ischemic microvascular disease. Mild vascular calcifications of the distal carotid siphons. The orbits demonstrate prior bilateral lens extractions. The paranasal sinuses are clear. Minimal partial opacification of the inferior mastoid air cells, bilaterally. No acute osseous injury. The overlying soft tissues are unremarkable. Impression: 1. No acute intracranial abnormality. 2. Stable encephalomalacia in the left frontal and parietal lobes. 3. Additional findings as above. READING PHYSICIAN: Isacc Hooks M.D. -[id number] 06/18/2024 14:13 [facility] National Teleradiology Program [phone] (For Medical Practitioner Use Only) Attention Patients / Veterans: If you have questions or concerns about these test results, please contact your ordering provider or primary care team. Primary Interpreting Staff: RADIOLOGY,OUTSIDE SERVICE, Staff Physician / RADIOLOGY,OUTSIDE SERVICE [facility] Encounter Notes: All associated encounter notes This section contains the clinical notes associated to the Encounter. Date/Time Encounter Note(s) Provider Source Sep 25, 2024 05:29 PM INSTRUMENTATION SPECIALIST OUTNEELAM HERNANDEZ NOTE: LOCAL TITLE: NURSING INSTRUMENTATION SPECIALIST STL STANDARD TITLE: INSTRUMENTATION SPECIALIST OUTPATIENT NOTE DATE OF NOTE: SEP 25, 2024@17:29 ENTRY DATE: SEP 25, 2024@17:29:05 AUTHOR: SHAHAB ARTEAGA COSIGNER: URGENCY: STATUS: COMPLETED NURSING INSTRUMENTATION SPECIALIST STL Has ADDENDA Pipo Duenas from [facility]-(Transporrt[facility] ion [facility]) called to request sooner appt for this as stated went to [facility] and the AIRCRAFT RESTORER-([place]) in facility wants sooner appt. 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 Christianson. - Patient doing well, no acute concerns - Carotid duplex today with elevated L ECA velocity (405), no indication for intervention at this time unless patient becomes symptomatic - Will follow up in clinic in 6 months with repeat carotid duplex studies Caller was unable to provide any information and was requested to fax information to [facility] for review. I was also provide the name to DON-(Kristel) and instructed to call for follow up-( ) Discussed with Yulissa the vascular clinic scheduling and she requests once case discussed needs to be scheduled 1pm or sooner due to travel circumstances of facility. cc: Dylan /ned/ SHAHAB ARTEAGA Gang Sawyer, General Surgery Signed: 09/28/2024 10:38 Receipt Acknowledged By: 09/29/2024 08:00 /ned/ LE BERNSTEIN PA-C Physician Labor Specialist, Surgery 09/28/2024 ADDENDUM STATUS: COMPLETED Attempted to make contact with [facility] staff- requested to speak with the floor nurse after notified DON was not avaolable and facility did not know whereabouts of AIRCRAFT RESTORER [place]. Floor staff ext: [phone] - Call went unanswered. I then called back and left message for Kristel-(DON) - ext: [phone] to return call to discuss tx plan. 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 Christianson. Presents today for follow up with carotid duplex studies. Patient is doing well today, no acute concerns. Denies stroke symptoms, vision changes, headaches. Endorsed soreness of LLE, particularly in joints. No issues with perfusion, palpable pulses. Advised to continue PT at facility and to call PCP to schedule an appointment. Studies Carotid duplex 12/27/23-- L ECA PSV 110 (IC/CC ratio N/A, L ICA ligated); R ECA PSV 149, ICA/CCA ratio 1.24 which is improved from prior. Antiplatelet therapy: ASA 81, Plavix 75 mg Smoking status: Non smoker Functional status: Ambulatory Cholesterol medications: atorvastatin 80 mg, ezetimibe 19 mg Blood pressure control: furosemide 40 mg, losartan 25 mg Glucose control: insulin aspart, glargine 45U qHS; A1c 7.1 12/28/23 PAST MEDICAL HISTORY: 1) CVA - Cerebrovascular accident 2) CAD - Coronary artery disease (SNOMED CT 79257604) 3) Mixed hyperlipidemia (SNOMED CT 214334113) 4) Benign essential hypertension (SNOMED CT 4233226) 5) DM - Diabetes mellitus (SNOMED CT 47486963) 6) Carcinoma of colon (SNOMED CT 465098849) 7) BPH - benign prostatic hyperplasia 8) Obstructive sleep apnea syndrome (SNOMED CT 67463582) 9) - Aortic stenosis (SNOMED CT 99133256) 10) Postsurgical Aortocoronary Bypass Status (ICD-9-CM V45.81) 11) Elevated PSA 12) Obesity 13) Cerebral infarction 14) Tobacco dependence in remission 15) Prosthetic heart valve in situ 16) Inflamed seborrhoeic keratosis 17) Bilateral stenosis of carotid arteries 18) SS - Spinal stenosis 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 PAST SURGICAL HISTORY: L CEA 11/15/2023 MEDICATIONS: Active Outpatient Medications (excluding Supplies): Issue Date Status Last Fill Active Outpatient Medications Refills Expiration 1) CICLOPIROX 8% TOP SOLN Qty: 6.6 for 30 ACTIVE Issu:09-30-23 days Sig: APPLY LIGHTLY TO AFFECTED Refills: 11 Last:10-01-23 AREA(S) ONCE A DAY FOR ONYCHOMYCOSIS Expr:09-30-24 (THIN COAT TO THICK NAILS - FILE DOWN AFTER 1 WEEK) (EXTERNAL USE ONLY) 2) CLOPIDOGREL BISULFATE 75MG TAB Qty: 90 ACTIVE Issu:10-23-23 for 90 days Sig: TAKE ONE TABLET BY Refills: 2 Last:01-16-24 MOUTH ONCE A DAY FOR STROKE PREVENTION Expr:10-23-24 3) DICLOFENAC NA 1% TOP GEL Qty: 100 for ACTIVE Issu:10-31-23 30 days Sig: APPLY 4 GM TO AFFECTED Refills: 11 Last:11-30-23 AREA(S) FOUR TIMES A DAY FOR PAIN DO Expr:10-31-24 NOT EXCEED MORE THAN 16 GRAMS DAILY TO ANY LOWER EXTREMITY JOINT. NOT MORE THAN 8 GRAMS DAILY TO ANY UPPER EXTREMITY JOINT. MAX 32GM/DAY OVER ALL JOINTS. (MEASURE DOSE WITH RULER ATTACHED INSIDE BOX) 4) EZETIMIBE 10MG TAB Qty: 90 for 90 days ACTIVE Issu:09-30-23 Sig: TAKE ONE TABLET BY MOUTH ONCE A Refills: 2 Last:01-16-24 DAY FOR HIGH CHOLESTEROL Expr:09-30-24 5) FERROUS SULFATE 325MG TAB Qty: 13 for ACTIVE Issu:03-16-24 30 days Sig: TAKE ONE TABLET BY MOUTH Refills: 2 Last:03-16-24 THREE TIMES PER WEEK Expr:03-17-25 6) GABAPENTIN 100MG CAP Qty: 270 for 90 ACTIVE Issu:09-30-23 days Sig: TAKE ONE CAPSULE BY MOUTH Refills: 2 Last:01-15-24 THREE TIMES A DAY FOR NERVE PAIN Expr:09-30-24 7) INSULIN,ASPART(EQV-NOVLG)1 00UN/ML FLXPEN ACTIVE Issu:03-16-24 Qty: 2 for 30 days Sig: INJECT 6 Refills: 9 Last:03-16-24 UNITS UNDER THE SKIN THREE TIMES A DAY Expr:03-17-25 BEFORE MEALS FOR BLOOD SUGAR CONTROL. ADMINISTER 10 MINUTES BEFORE FOOD DIRECTED. REFRIGERATE UN-OPENED PENS. DISCARD CARTRIDGE 28 DAYS AFTER OPENING. 8) INSULIN,GLARGINE-YFGN 100UNIT/ML PEN 3ML ACTIVE Issu:03-16-24 Qty: 3 for 30 days Sig: INJECT 31 Refills: 9 Last:03-16-24 UNITS UNDER THE SKIN ONCE A DAY FOR Expr:03-17-25 BLOOD SUGAR CONTROL. ADMINISTER AT SAME TIME EACH DAY DIRECTED. DISCARD ANY OPEN CARTRIDGE AFTER 28 DAYS. 9) LEVOTHYROXINE NA (SYNTHROID) 75MCG TAB ACTIVE Issu:09-30-23 Qty: 90 for 90 days Sig: TAKE ONE Refills: 2 Last:01-16-24 TABLET BY MOUTH EVERY MORNING BEFORE A Expr:09-30-24 MEAL FOR HYPOTHYROIDISM TAKE 30 MINUTES BEFORE FOOD. TAKE SEPARATELY FROM ALL OTHER MEDICATIONS. 10) LIDOCAINE 5% PATCH Qty: 90 for 90 days ACTIVE Issu:10-31-23 Sig: APPLY 1 PATCH TO SKIN SITE ONCE A Refills: 3 Last:11-01-23 DAY APPLY PATCH AND PRESS FIRMLY FOR Expr:10-31-24 10-15 SECONDS. KEEP ON FOR 12 HOURS THEN REMOVE PATCH FOR 12 HOURS. 11) LOSARTAN 50MG TAB Qty: 45 for 90 days ACTIVE Issu:09-30-23 Sig: TAKE ONE-HALF TABLET BY MOUTH Refills: 2 Last:02-06-24 ONCE A DAY TO LOWER BLOOD PRESSURE Expr:09-30-24 12) METOPROLOL TARTRATE 50MG TAB Qty: 30 ACTIVE Issu:03-16-24 for 30 days Sig: TAKE ONE-HALF TABLET Refills: 2 Last:03-16-24 BY MOUTH TWICE A DAY TAKE WITH OR Expr:03-17-25 IMMEDIATELY FOLLOWING FOOD. 13) TAMSULOSIN HCL 0.4MG CAP Qty: 90 for 90 ACTIVE Issu:09-30-23 days Sig: TAKE ONE CAPSULE BY MOUTH Refills: 2 Last:01-16-24 ONCE A DAY APPROXIMATELY 30 MINUTES Expr:09-30-24 AFTER THE SAME MEAL EACH DAY (FOR PROSTATE) Start Date Active Non-VA Medications Refills Expiration 1) Non-VA FISH OIL CAP/TAB Si CAP/TAB ACTIVE BY MOUTH TWICE A DAY 2) Non-VA FOLIC ACID 1MG TAB SiMG BY ACTIVE MOUTH ONCE A DAY 15 Total Medications ALLERGIES: ERTHROMYCIN ESTOLATE, CODEINE, PENICILLIN, INFLUENZA, DOXAZOSIN, EGGS LISINOPRIL, METFORMIN, FISH, SHELLFISH, STRAWBERRIES FAMILY HISTORY: no pertinent family history SOCIAL HISTORY: Nonsmoker. Lives in nursing facility with nearby. ROS: Review of systems as per HPI and additionally notable for Constitutional: No fever, No weakness/ fatigue Cardiovascular: No chest pain, No palpitations Respiratory: No shortness of breath, No cough Genitourinary: No dysuria, No polyuria Neurology: No headache, No tremors Musculoskeletal: No joint pain, No back pain Skin: No rash, No itching Psychiatric: No anxiety, No depression PHYSICAL EXAM: General: NAD, A&Ox4, calm, comfortable Cardiac: Normal rate, regular rhythm Pulm: Unlabored breathing on room air Abd: Soft, non-tender, non-distended Incision: Clean/dry/intact without evidence of erythema/induration/draina ge Extr: Warm and well-perfused, no edema LABS: WBC 9.5 10*3/uL 06/18/2024 17:35 RBC 4.01 L 10*6/uL 06/18/2024 17:35 HGB 12.6 L g/dL 06/18/2024 17:35 HCT 37.3 L % 06/18/2024 17:35 MCV 93.0 fL 06/18/2024 17:35 MCH 31.4 pg 06/18/2024 17:35 MCHC 33.8 g/dL 06/18/2024 17:35 RDW 13.0 % 06/18/2024 17:35 PLT 275 10*3/uL 06/18/2024 17:35 MPV 10.3 fL 06/18/2024 17:35 NEUTROPHILS, AUTO % 51 % 03/15/2024 14:00 LYMPHOCYTES, AUTO % 29 % 03/15/2024 14:00 MONOCYTES, AUTO % 13 % 03/15/2024 14:00 EOSINOPHILS, AUTO % 6 % 03/15/2024 14:00 BASOPHILS, AUTO % 1 % 03/15/2024 14:00 NEUTROPHILS, ABSOLUTE 3.52 10*3/uL 03/15/2024 14:00 LYMPHOCYTES, ABSOLUTE 1.99 10*3/uL 03/15/2024 14:00 MONOCYTES, ABSOLUTE 0.86 H 10*3/uL 03/15/2024 14:00 EOSINOPHILS, ABSOLUTE 0.42 10*3/uL 03/15/2024 14:00 BASOPHILS, ABSOLUTE 0.04 10*3/uL 03/15/2024 14:00 NRBC% 0 #/100 (WBCs) 03/04/2024 06:00 NEUTROPHILS 54.9 % 06/18/2024 17:35 BAND NEUTROPHILS 0.9 % 03/14/2024 18:30 LYMPHOCYTES 31.0 % 06/18/2024 17:35 MONOCYTES 7.1 % 06/18/2024 17:35 EOSINOPHILS 2.6 % 06/18/2024 17:35 BASOPHILS 2.6 % 06/18/2024 17:35 MYELOCYTES 0.9 % 03/14/2024 18:30 ATYPICAL LYMPHOCYTES 1.8 % 06/18/2024 17:35 ANISOCYTOSIS 1+ 03/14/2024 18:30 POIKILOCYTOSIS 1+ 06/18/2024 17:35 ACANTHOCYTES 1+ 03/13/2024 20:00 POLYCHROMASIA 1+ 03/08/2024 20:00 SODIUM 136 mEq/L 06/18/2024 17:35 POTASSIUM 3.7 mEq/L 03/15/2024 14:00 CHLORIDE 104 mEq/L 06/18/2024 17:35 UREA NITROGEN 12.0 mg/dL 06/18/2024 17:35 CREATININE 1.36 H mg/dL 06/18/2024 17:35 CALCIUM 9.6 mg/dL 06/18/2024 17:35 PROTEIN 7.7 g/dL 06/18/2024 17:35 ALBUMIN 3.6 g/dL 06/18/2024 17:35 ALKALINE PHOSPHATASE 122 U/L 06/18/2024 17:35 ALT/SGPT 7 L U/L 06/18/2024 17:35 AST/SGOT 25 U/L 06/18/2024 17:35 TOTAL BILIRUBIN 0.4 mg/dL 06/18/2024 17:35 CARBON DIOXIDE 21 L mEq/L 06/18/2024 17:35 GLUCOSE 171 H mg/dL 06/18/2024 17:35 EGFR (CKD-EPI 2020) 51.0 06/18/2024 17:35 INR VALUE 1.1 INR 12/27/2023 13:19 PROTIME 12.3 sec 12/27/2023 13:19 VASCULAR STUDIES: Carotid Duplex: R ECA PSV/IC:CC 169/1.93 L ECA PSV 405 ASSESSMENT/PLAN: 84 yo M w/ hx T2DM, 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 Christianson. - Patient doing well, no acute concerns - Carotid duplex today with elevated L ECA velocity (405), no indication for intervention at this time unless patient becomes symptomatic - Will follow up in clinic in 6 months with repeat carotid duplex studies /ned/ RICHARD ROWELL MD RESIDENT PHYSICIAN, GENERAL SURGERY Signed: 07/10/2024 15:21 Receipt Acknowledged By: 07/13/2024 15:27 /ned/ ZAHEER RAUSCH Staff Physician, Vascular Surgery 07/13/2024 ADDENDUM STATUS: COMPLETED ECA velocity higher on today's study but remains symptom free. Plan for ongoing surveillance at this time. /ned/ ZAHEER RAUSCH Staff Physician, Vascular Surgery Signed: 07/13/2024 15:28 RICHARD ROWELL [facility]
--- OUTSIDE RECORDS SUMMARY | 2025-06-18 18:03 | XMS_ITS | Continuity of Care Document ---
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 It does not include entries that were removed or entered in error. Problem Status Onset Date Problem Type Date of Resolution Comments Source - Aortic stenosis (SNOMED CT 85718133) Active Condition Jul 05, 2009 Entered By: VALERY WEN Comment: Echo-mod(1.2 cm)( mean 18mmHg), ef=60%Aug 22, 2010 Entered By: VALERY WEN Comment: Brianna AVR & 1vc, [facility] Benign essential hypertension (SNOMED CT 7993916) Active Condition [facility] Bilateral stenosis of carotid arteries Active Condition Mar 22, 2023 Entered By: JUAN RAMON TURK Comment: RIGHT carotid stenosis. LEFT carotid occlusion [facility] BPH - benign prostatic hyperplasia Active Condition [facility] CAD - Coronary artery disease (SNOMED CT 99251938) Active Condition Jun 10, 2009 Entered By: VALERY WEN Comment: s/p cbg 1998 CHNESep 2009 Entered By: VALERY WEN Comment: Brianna AVR & 1vcbg, an 2021 Entered By: MAX BOOTH Comment: Status post [place] 12/22 [facility] Carcinoma of colon (SNOMED CT 110166615) Active Condition Jun 19, 2005 Entered By: VALERY WEN Comment: A-P resection, colostomy (refused chemo) Gran.Cty [facility] Cerebral infarction Active Condition [facility] Colostomy prolapse Active Condition O ct 2022 Entered By: MAX BOOTH Comment: hernia [facility] CVA - Cerebrovascular accident Active Condition Jan 02, 2007 Entered By: VALERY WEN Comment: (RUE/face numb, resolved) neg carotids &TEEFeb 2008 Entered By: VALERY WEN Comment: SERGIO Carotids Duplex Bilat. ICA's 50-79% stenosis [facility] DM - Diabetes mellitus (SNOMED CT 71051245) Active Condition Dec 21, 2008 Entered By: VALERY WEN Comment: also +Microalbumi anette (Creat = 1.1) [facility] Elevated PSA Active Condition [facility] Inflamed seborrhoeic keratosis Active Condition [facility] Mixed hyperlipidemia (SNOMED CT 575760142) Active Condition [facility] Obesity Active Condition [facility] Obstructive sleep apnea syndrome (SNOMED CT 31579261) Active Condition Oct 06, 2008 Entered By: VALERY WEN Comment: SleepStudy, start VA CPAP (no O2) [facility] Postsurgical Aortocoronary Bypass Status (ICD-9-CM V45.81) Active Condition [facility] Prosthetic heart valve in situ Active Condition [facility] SS - Spinal stenosis Active Condition [facility] Tobacco dependence in remission Active Condition [facility] Actinic Keratosis Inactive Condition 06/19/2005 [facility] Hematochezia Inactive Condition 06/19/2005May Entered By: VALERY WEN Comment: w/new diarrhea onset , needs eval. 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 [facility] Squamous Cell Carcinoma of Skin (ICD-9-CM 173.9) Inactive Condition 09/30/2023 Jun 19, 5 Entered By: VALERY WEN Comment: nose, and recurrent facials, also ak's [facility] Diagnosis: ICD-10-CM N40.0 Benign prostatic hyperplasia without lower urinry tract symp Active Diagnosis [facility] Diagnosis: ICD-10-CM I65.22 Occlusion and stenosis of left carotid artery Active Diagnosis [facility] Diagnosis: ICD-10-CM R51.9 Headache, unspecified Active Diagnosis [facility] Diagnosis: ICD-10-CM I63.9 Cerebral infarction, unspecified Active Diagnosis [facility] Diagnosis: ICD-10-CM R33.8 Other retention of urine Active Diagnosis [facility] Diagnosis: ICD-10-CM Z91.89 Oth personal risk factors, not elsewhere classified Active Diagnosis [facility] Diagnosis: ICD-10-CM N39.0 Urinary tract infection, site not specified Active Diagnosis [facility] Diagnosis: ICD-10-CM R53.1 Weakness Active Diagnosis [facility] Diagnosis: ICD-10-CM Z51.81 Encounter for therapeutic drug level monitoring Active Diagnosis [facility] Diagnosis: ICD-10-CM G00.9 Bacterial meningitis, unspecified Active Diagnosis [facility] Diagnosis: ICD-10-CM M47.892 Other spondylosis, cervical region Active Diagnosis [facility] Diagnosis: ICD-10-CM Z71.81 Spiritual or episcopalian counseling Active Diagnosis [facility] Diagnosis: ICD-10-CM M54.2 Cervicalgia Active Diagnosis [facility] Admit Reason: URINARY TRACT INFECTION Active Diagnosis [facility] Diagnosis: ICD-10-CM I10 Essential (primary) hypertension Active Diagnosis [facility] Admit Reason: WEAKNESS DYSARTHRIA Active Diagnosis [facility] Caroline [facility] Diagnosis: ICD-10-CM I67.82 Cerebral ischemia Active Diagnosis [facility] Medications Combined list of outpatient medications from Department of Defense and [facility] facilities.Medications provided include 1) outpatient medications from the last 15 months, and 2) patient-reported medications. Medication Details Route Status Patient Instructions Prescription Expires Prescription Number Last Dispense Date Ordering Provider Order Date Order Qty Source FINASTERIDE 5MG TAB TAKE ONE TABLET BY MOUTH ONCE A DAY SWALLOW WHOLE, DO NOT CRUSH, SPLIT, OR CHEW. ORAL ACTIVE 10/29/2025 [id number] NETTA ENCINAS 2023 90 [facility] FISH OIL CAP/TAB TAKE 1 CAP/TAB BY MOUTH TWICE A DAY ORAL ACTIVE Caroline WEN R 2003 [facility] FOLIC ACID 1MG TAB TAKE ONE TABLET BY MOUTH ONCE A DAY ORAL ACTIVE Caroline WEN R 2006 [facility] TAMSULOSIN HCL 0.4MG CAP TAKE ONE CAPSULE BY MOUTH EVERY EVENING FOR BENIGN PROSTATI C HYPERPLA MIGEL APPROXIM ATELY 30 MINUTES AFTER THE SAME MEAL EACH DAY ORAL ACTIVE 10/29/2025 [id number] NETTA ENCINAS 2023 90 [facility] Allergies, Adverse Reactions, Alerts Combined list of allergies from Department of Defense and [facility] facilities. It does not include entries that were removed or entered in error. Substance Category Reaction Severity Reaction type Status Date Reported Comments Source CODEINE Propensity to adverse reactions to drug (finding) NAUSEA,VOM ITING active 4 [facility] DOXAZOSIN Propensity to adverse reactions to drug (finding) Cramp, Abdominal bloating, Stomach cramps active 7 [facility] EGGS Propensity to adverse reactions to substance (finding) Urticaria active 1 [facility] ERTHROMYCIN ESTOLATE Propensity to adverse reactions to drug (finding) NAUSEA,VOM ITING active 4 [facility] FISH Propensity to adverse reactions to substance (finding) Edema of oral soft tissues active 4 [facility] INFLUENZA Propensity to adverse reactions to drug (finding) Eruption active 4 [facility] LISINOPRIL Propensity to adverse reactions to drug (finding) Cough active 1 [facility] METFORMIN Propensity to adverse reactions to drug (finding) Diarrhea active 1 [facility] PENICILLIN Propensity to adverse reactions to drug (finding) HIVES active 4 [facility] SHELLFISH Propensity to adverse reactions to food (finding) Edema of oral soft tissues active 4 [facility] STRAWBERRIES Propensity to adverse reactions to substance (finding) Edema of oral soft tissues active 4 [facility] Immunizations Combined list of available immunizations from the Department of [facility] and [facility] facilities. Immunization Series Date Given Administered By Site Reaction Lot Number CVX Code Drug Telecom Specialist Status Comments Source ZOSTER RECOMBINANT 1 2021 187 complet [facility] ZOSTER RECOMBINANT 1 2021 187 complet [facility] PNEUMOCOCCAL CONJUGATE PCV 13 2015 133 complet [facility] TDAP 2014 115 complet [facility] N PNEUMOCOCCAL, UNSPECIFIED FORMULATION 2012 109 complet [facility] ZOSTER LIVE 2008 121 complet [facility] DIVIS[facility] N TDAP 2007 115 complet [facility] DIVISIO N PNEUMOCOCCAL, UNSPECIFIED FORMULATION 2003 109 complet ed [facility] INFLUENZA (HISTORICAL) 2002 88 complet [facility] N Results Combined list of recent chemistry, hematology and other laboratory results from [facility] and [facility], ranging from 15 months to all on record, depending upon the facility. Order Name Results Value Reference Range Date Interpretation Specimen Comments Source COMPREHE NSIVE METABOLI C PANEL CREATININE [MASS/VOLU ME] IN SERUM OR PLASMA 1.36 mg/dL 0.7 - 1.3 06/18 H Specimen Type: PLASMA Comment: Aspartate Transaminas e result may show positive bias due to hemolysis. K result canceled due to hemolysis. Specimen moderately hemolyzed. <K> Cancelled due to moderate hemolysis. NOTIFIED CYNTIHA ZAMBRANO RN@[id number] [facility] Ordering Provider: ANDREA MARQUEZ Report Released Date/Time: Jun 18, 2024 05:31 PM Reporting Lab: [place] [address] [place] [address] Performing Lab: [address] COMPREHE NSIVE METABOLI C PANEL UREA NITROGEN [MASS/VOLU ME] IN SERUM OR PLASMA 12.0 mg/dL 9.0 - 25.0 06/18 Specimen Type: PLASMA Comment: Aspartate Transaminas e result may show positive bias due to hemolysis. K result canceled due to hemolysis. Specimen moderately hemolyzed. <K> Cancelled due to moderate hemolysis. NOTIFIED CYNTHIA ZAMBRANO RN@[id number] [facility] Ordering Provider: ANDREA MARQUEZ Report Released Date/Time: Jun 18, 2024 05:31 PM Reporting Lab: [place] [address] Performing Lab: [place] [address] COMPREHE NSIVE METABOLI C PANEL GLUCOSE [MASS/VOLU ME] IN SERUM OR PLASMA 171 mg/dL 72 - 99 06/18 H Specimen Type: PLASMA Comment: Aspartate Transaminas e result may show positive bias due to hemolysis. K result canceled due to hemolysis. Specimen moderately hemolyzed. <K> Cancelled due to moderate hemolysis. NOTIFIED CYNTHIA ZAMBRANO RN@[id number] [facility] Ordering Provider: ANDREA MARQUEZ Report Released Date/Time: Jun 18, 2024 05:31 PM Reporting Lab: [place] [address] [place] [address] Performing Lab: [address] COMPREHE NSIVE METABOLI C PANEL SODIUM [MOLES/VOL UME] IN SERUM OR PLASMA 136 meq/L 136 - 145 06/18 Specimen Type: PLASMA Comment: Aspartate Transaminas e result may show positive bias due to hemolysis. K result canceled due to hemolysis. Specimen moderately hemolyzed. <K> Cancelled due to moderate hemolysis. NOTIFIED CYNTHIA ZAMBRANO RN@[id number] [facility] Ordering Provider: ANDREA MARQUEZ Report Released Date/Time: Jun 18, 2024 05:31 PM Reporting Lab: [address] [address] Performing Lab: [address] [address] COMPREHE NSIVE METABOLI C PANEL POTASSIUM [MOLES/VOL UME] IN SERUM OR PLASMA cancmeq/ L 3.5 - 5 06/18 Specimen Type: PLASMA Comment: Aspartate Transaminas e result may show positive bias due to hemolysis. K result canceled due to hemolysis. Specimen moderately hemolyzed. <K> Cancelled due to moderate hemolysis. NOTIFIED CYNTHIA ZAMBRANO RN@[id number] [facility] Ordering Provider: ANDREA MARQUEZ Report Released Date/Time: Jun 18, 2024 05:31 PM Reporting Lab: [address] [address] Performing Lab: [address] [phone] COMPREHE NSIVE METABOLI C PANEL CHLORIDE [MOLES/VOL UME] IN SERUM OR PLASMA 104 meq/L 98 - 107 06/18 Specimen Type: PLASMA Comment: Aspartate Transaminas e result may show positive bias due to hemolysis. K result canceled due to hemolysis. Specimen moderately hemolyzed. <K> Cancelled due to moderate hemolysis. NOTIFIED CYNTHIA ZAMBRANO RN@[id number] [facility] Ordering Provider: ANDREA MARQUEZ Report Released Date/Time: Jun 18, 2024 05:31 PM Reporting Lab: [address] [address] Performing Lab: [address] [address] [facility] COMPREHE NSIVE METABOLI C PANEL CARBON DIOXIDE, TOTAL [MOLES/VOL UME] IN SERUM OR PLASMA 21 meq/L 22 - 31 06/18 L Specimen Type: PLASMA Comment: Aspartate Transaminas e result may show positive bias due to hemolysis. K result canceled due to hemolysis. Specimen moderately hemolyzed. <K> Cancelled due to moderate hemolysis. NOTIFIED CYNTHIA ZAMBRANO RN@[id number] [facility] Ordering Provider: ANDREA MARQUEZ Report Released Date/Time: Jun 18, 2024 05:31 PM Reporting Lab: [place] [phone] Performing Lab: [place] [phone] [facility] COMPREHE NSIVE METABOLI C PANEL CALCIUM [MASS/VOLU ME] IN SERUM OR PLASMA 9.6 mg/dL 8.4 - 10.4 06/18 Specimen Type: PLASMA Comment: Aspartate Transaminas e result may show positive bias due to hemolysis. K result canceled due to hemolysis. Specimen moderately hemolyzed. <K> Cancelled due to moderate hemolysis. NOTIFIED CYNTHIA ZAMBRANO RN@[id number] [facility] Ordering Provider: ANDREA MARQUEZ Report Released Date/Time: Jun 18, 2024 05:31 PM Reporting Lab: [place] [phone] Performing Lab: [address] [address] [facility] COMPREHE NSIVE METABOLI C PANEL PROTEIN [MASS/VOLU ME] IN SERUM OR PLASMA 7.7 g/dL 6 - 8.6 06/18 Specimen Type: PLASMA Comment: Aspartate Transaminas e result may show positive bias due to hemolysis. K result canceled due to hemolysis. Specimen moderately hemolyzed. <K> Cancelled due to moderate hemolysis. NOTIFIED CYNTHIA ZAMBRANO RN@[id number] [facility] Ordering Provider: ANDREA MARQUEZ Report Released Date/Time: Jun 18, 2024 05:31 PM Reporting Lab: [facility] [address] [place] [phone] Performing Lab: [place] [address] [facility] [address] [facility] COMPREHE NSIVE METABOLI C PANEL ALBUMIN [MASS/VOLU ME] IN SERUM OR PLASMA 3.6 g/dL 3.4 - 5 06/18 Specimen Type: PLASMA Comment: Aspartate Transaminas e result may show positive bias due to hemolysis. K result canceled due to hemolysis. Specimen moderately hemolyzed. <K> Cancelled due to moderate hemolysis. NOTIFIED CYNTHIA ZAMBRANO RN@1843 [id number] [facility] Ordering Provider: ANDREA MARQUEZ Report Released Date/Time: Jun 18, 2024 05:31 PM Reporting Lab: [address] [phone] Performing Lab: [address] [phone] [place] [address] COMPREHE NSIVE METABOLI C PANEL BILIRUBIN. TOTAL [MASS/VOLU ME] IN SERUM OR PLASMA 0.4 mg/dL 0.2 - 1.2 06/18 Specimen Type: PLASMA Comment: Aspartate Transaminas e result may show positive bias due to hemolysis. K result canceled due to hemolysis. Specimen moderately hemolyzed. <K> Cancelled due to moderate hemolysis. NOTIFIED CYNTHIA ZAMBRANO RN@1843 [id number] [facility] Ordering Provider: ANDREA MARQUEZ Report Released Date/Time: Jun 18, 2024 05:31 PM Reporting Lab: [address] [address] Performing Lab: [address] [phone] COMPREHE NSIVE METABOLI C PANEL ALKALINE PHOSPHATAS E [ENZYMATIC ACTIVITY/V OLUME] IN SERUM OR PLASMA 122 U/L 40 - 150 06/18 Specimen Type: PLASMA Comment: Aspartate Transaminas e result may show positive bias due to hemolysis. K result canceled due to hemolysis. Specimen moderately hemolyzed. <K> Cancelled due to moderate hemolysis. NOTIFIED CYNTHIA ZAMBRANO RN@1843 [id number] [facility] Ordering Provider: ANDREA MARQUEZ Report Released Date/Time: Jun 18, 2024 05:31 PM Reporting Lab: [place] [address] [facility] [address] Performing Lab: [place] [address] [facility] [phone] [place] [address] COMPREHE NSIVE METABOLI C PANEL ASPARTATE AMINOTRANS FERASE [ENZYMATIC ACTIVITY/V OLUME] IN SERUM OR PLASMA 25 U/L 5 - 34 06/18 Specimen Type: PLASMA Comment: Aspartate Transaminas e result may show positive bias due to hemolysis. K result canceled due to hemolysis. Specimen moderately hemolyzed. <K> Cancelled due to moderate hemolysis. NOTIFIED CYNTHIA ZAMBRANO RN@1843 [id number] [facility] Ordering Provider: ANDREA MARQUEZ Report Released Date/Time: Jun 18, 2024 05:31 PM Reporting Lab: [address] [address] Performing Lab: [place] [address] [facility] [phone] [place] [address] COMPREHE NSIVE METABOLI C PANEL ALANINE AMINOTRANS FERASE [ENZYMATIC ACTIVITY/V OLUME] IN SERUM OR PLASMA 7 U/L 8 - 40 06/18 L Specimen Type: PLASMA Comment: Aspartate Transaminas e result may show positive bias due to hemolysis. K result canceled due to hemolysis. Specimen moderately hemolyzed. <K> Cancelled due to moderate hemolysis. NOTIFIED CYNTHIA ZAMBRANO RN@1843 [id number] [facility] Ordering Provider: ANDREA MARQUEZ Report Released Date/Time: Jun 18, 2024 05:31 PM Reporting Lab: [address] [address] Performing Lab: [address] [address] [facility] COMPREHE NSIVE METABOLI C PANEL GLOMERULAR FILTRATION RATE/1.73 SQ M.PREDICTE D [VOLUME RATE/AREA] IN SERUM, PLASMA OR BLOOD BY CREATININE -BASED FORMULA (CKD-EPI 2020) 51.0 60 06/18 Specimen Type: PLASMA Comment: Aspartate Transaminas e result may show positive bias due to hemolysis. K result canceled due to hemolysis. Specimen moderately hemolyzed. <K> Cancelled due to moderate hemolysis. NOTIFIED CYNTHIA ZAMBRANO RN@[id number] [facility] Ordering Provider: ANDREA MARQUEZ Report Released Date/Time: Jun 18, 2024 05:31 PM Reporting Lab: [place] [address] Performing Lab: [address] CBC LEUKOCYTES [#/VOLUME] IN BLOOD BY AUTOMATED COUNT 9.5 10*3/uL 3.6 - 11.2 06/18 Specimen Type: BLOOD No comment entered. Ordering Provider: ANDREA MARQUEZ Report Released Date/Time: Jun 18, 2024 05:31 PM Reporting Lab: [address] [address] Performing Lab: [address] CBC ERYTHROCYT ES [#/VOLUME] IN BLOOD BY AUTOMATED COUNT 4.01 10*6/uL 4.10 - 5.70 06/18 L Specimen Type: BLOOD No comment entered. Ordering Provider: ANDREA MARQUEZ Report Released Date/Time: Jun 18, 2024 05:31 PM Reporting Lab: [address] [address] Performing Lab: [address] CBC HEMOGLOBIN [MASS/VOLU ME] IN BLOOD 12.6 g/dL 13.1 - 16.8 06/18 L Specimen Type: BLOOD No comment entered. Ordering Provider: ANDREA MARQUEZ Report Released Date/Time: Jun 18, 2024 05:31 PM Reporting Lab: [place] [address] [facility] [address] Performing Lab: [facility] [address] [place] [address] [facility] CBC HEMATOCRIT [VOLUME FRACTION] OF BLOOD 37.3 38.2 - 48.4 06/18 L Specimen Type: BLOOD No comment entered. Ordering Provider: ANDREA MARQUEZ Report Released Date/Time: Jun 18, 2024 05:31 PM Reporting Lab: [place] [address] [facility] [address] Performing Lab: [address] [address] [facility] CBC MCV [ENTITIC VOLUME] BY AUTOMATED COUNT 93.0 fL 80.0 - 100.0 06/18 Specimen Type: BLOOD No comment entered. Ordering Provider: ANDREA MARQUEZ Report Released Date/Time: Jun 18, 2024 05:31 PM Reporting Lab: [place] [address] [facility] [address] Performing Lab: [address] [address] [facility] CBC MCH [ENTITIC MASS] BY AUTOMATED COUNT 31.4 pg 27.0 - 34.0 06/18 Specimen Type: BLOOD No comment entered. Ordering Provider: ANDREA MARQUEZ Report Released Date/Time: Jun 18, 2024 05:31 PM Reporting Lab: [place] [address] [facility] [address] Performing Lab: [address] [address] [facility] CBC MCHC [MASS/VOLU ME] BY AUTOMATED COUNT 33.8 g/dL 33.0 - 36.0 06/18 Specimen Type: BLOOD No comment entered. Ordering Provider: ANDREA MARQUEZ Report Released Date/Time: Jun 18, 2024 05:31 PM Reporting Lab: [address] [address] Performing Lab: [address] [address] [facility] CBC PLATELETS [#/VOLUME] IN BLOOD BY AUTOMATED COUNT 275 10*3/uL 150 - 400 06/18 Specimen Type: BLOOD No comment entered. Ordering Provider: ANDREA MARQUEZ Report Released Date/Time: Jun 18, 2024 05:31 PM Reporting Lab: [place] [address] [facility] [address] Performing Lab: [address] [address] [facility] CBC PLATELET MEAN VOLUME [ENTITIC VOLUME] IN BLOOD BY AUTOMATED COUNT 10.3 fL 7.5 - 11.2 06/18 Specimen Type: BLOOD No comment entered. Ordering Provider: ANDREA MARQUEZ Report Released Date/Time: Jun 18, 2024 05:31 PM Reporting Lab: [place] [address] [facility] [address] Performing Lab: [address] [address] [facility] CBC ERYTHROCYT E DISTRIBUTI ON WIDTH [RATIO] BY AUTOMATED COUNT 13.0 11.8 - 15.1 06/18 Specimen Type: BLOOD No comment entered. Ordering Provider: ANDREA MARQUEZ Report Released Date/Time: Jun 18, 2024 05:31 PM Reporting Lab: [place] [address] [facility] [address] Performing Lab: [address] [address] [facility] CBC SEGMENTED NEUTROPHIL S/100 LEUKOCYTES IN BLOOD BY MANUAL COUNT 54.9 06/18 Specimen Type: BLOOD No comment entered. Ordering Provider: ANDREA MARQUEZ Report Released Date/Time: Jun 18, 2024 05:31 PM Reporting Lab: [address] [place] [address] Performing Lab: [facility] [address] [facility] [address] [facility] CBC MONOCYTES/ 100 LEUKOCYTES IN BLOOD BY AUTOMATED COUNT 7.1 06/18 Specimen Type: BLOOD No comment entered. Ordering Provider: ANDREA MARQUEZ Report Released Date/Time: Jun 18, 2024 05:31 PM Reporting Lab: [facility] [address] [facility] [address] Performing Lab: [facility] [address] [facility] [address] [facility] CBC EOSINOPHIL S/100 LEUKOCYTES IN BLOOD BY MANUAL COUNT 2.6 06/18 Specimen Type: BLOOD No comment entered. Ordering Provider: ANDREA MARQUEZ Report Released Date/Time: Jun 18, 2024 05:31 PM Reporting Lab: [facility] [address] [facility] [address] Performing Lab: [facility] [address] [facility] [address] [facility] CBC BASOPHILS/ 100 LEUKOCYTES IN BLOOD BY MANUAL COUNT 2.6 06/18 Specimen Type: BLOOD No comment entered. Ordering Provider: ANDREA MARQUEZ Report Released Date/Time: Jun 18, 2024 05:31 PM Reporting Lab: [facility] [address] [facility] [address] Performing Lab: [facility] [address] [facility] [address] [facility] CBC POIKILOCYT OSIS [PRESENCE] IN BLOOD BY LIGHT MICROSCOPY 1+ 06/18 Specimen Type: BLOOD No comment entered. Ordering Provider: ANDREA MARQUEZ Report Released Date/Time: Jun 18, 2024 05:31 PM Reporting Lab: [facility] [address] [facility] [address] Performing Lab: [facility] [address] [facility] [address] [facility] CBC PAPPENHEIM ER BODIES 0 06/18 Specimen Type: BLOOD No comment entered. Ordering Provider: ANDREA MARQUEZ Report Released Date/Time: Jun 18, 2024 05:31 PM Reporting Lab: [facility] [address] [place] [address] Performing Lab: [facility] [address] [place] [address] [facility] CBC LYMPHOCYTE S/100 LEUKOCYTES IN BLOOD BY MANUAL COUNT 31.0 06/18 Specimen Type: BLOOD No comment entered. Ordering Provider: ANDREA MARQUEZ Report Released Date/Time: Jun 18, 2024 05:31 PM Reporting Lab: [address] [address] Performing Lab: [address] [phone] CBC VARIANT LYMPHOCYTE S/100 LEUKOCYTES IN BLOOD BY MANUAL COUNT 1.8 06/18 Specimen Type: BLOOD No comment entered. Ordering Provider: ANDREA MARQUEZ Report Released Date/Time: Jun 18, 2024 05:31 PM Reporting Lab: [address] [address] Performing Lab: [address] [address] [facility] CBC PLATELET ADEQUACY [PRESENCE] IN BLOOD BY LIGHT MICROSCOPY ADEQUATE 06/18 Specimen Type: BLOOD No comment entered. Ordering Provider: ANDREA MARQUEZ Report Released Date/Time: Jun 18, 2024 05:31 PM Reporting Lab: [address] [address] Performing Lab: [address] [address] [facility] CBC BASOPHILS [#/VOLUME] IN BLOOD BY MANUAL COUNT 0.25 10*3/uL 0.01 - 0.20 06/18 H Specimen Type: BLOOD No comment entered. Ordering Provider: ANDREA MARQUEZ Report Released Date/Time: Jun 18, 2024 05:31 PM Reporting Lab: [place] [phone] Performing Lab: [facility] [address] [place] [address] [facility] CBC EOSINOPHIL S [#/VOLUME] IN BLOOD BY MANUAL COUNT 0.25 10*3/uL 0.00 - 0.60 06/18 Specimen Type: BLOOD No comment entered. Ordering Provider: ANDREA MARQUEZ Report Released Date/Time: Jun 18, 2024 05:31 PM Reporting Lab: [place] [address] Performing Lab: [address] [phone] CBC MONOCYTES [#/VOLUME] IN BLOOD BY MANUAL COUNT 0.67 10*3/uL 0.19 - 0.80 06/18 Specimen Type: BLOOD No comment entered. Ordering Provider: ANDREA MARQUEZ Report Released Date/Time: Jun 18, 2024 05:31 PM Reporting Lab: [address] [address] Performing Lab: [address] [address] [facility] CBC LYMPHOCYTE S [#/VOLUME] IN BLOOD BY MANUAL COUNT 3.12 10*3/uL 0.77 - 4.50 06/18 Specimen Type: BLOOD No comment entered. Ordering Provider: ANDREA MARQUEZ Report Released Date/Time: Jun 18, 2024 05:31 PM Reporting Lab: [address] [address] Performing Lab: [address] [address] [facility] CBC NEUTROPHIL S [#/VOLUME] IN BLOOD BY MANUAL COUNT 5.22 10*3/uL 2.10 - 8.00 06/18 Specimen Type: BLOOD No comment entered. Ordering Provider: ANDREA MARQUEZ Report Released Date/Time: Jun 18, 2024 05:31 PM Reporting Lab: [address] [address] Performing Lab: [place] [address] [facility] [address] [facility] GLUCOSE, BLOOD-po ct (STL) GLUCOSE [MASS/VOLU ME] IN BLOOD BY AUTOMATED TEST STRIP 154 mg/dL 72 - 99 04/01 H Specimen Type: BLOOD Comment: Test Performed by: [id number] Meter #: [id number] Ordering Provider: RA KAYA WEBER Report Released Date/Time: April 01, 2024 12:35 PM Reporting Lab: [place] [address] [facility] [address] Performing Lab: [address] [phone] [place] [address] GLUCOSE, BLOOD-po ct (STL) GLUCOSE [MASS/VOLU ME] IN BLOOD BY AUTOMATED TEST STRIP 229 mg/dL 72 - 99 03/16 H Specimen Type: BLOOD Comment: Test Performed by: [id number] Meter #: [id number] Ordering Provider: MARIIA GR Report Released Date/Time: Mar 16, 2024 11:25 AM Reporting Lab: [address] [address] Performing Lab: [address] [address] [facility] GLUCOSE, BLOOD-po ct (STL) GLUCOSE [MASS/VOLU ME] IN BLOOD BY AUTOMATED TEST STRIP 114 mg/dL 72 - 99 03/16 H Specimen Type: BLOOD Comment: Test Performed by: [id number] Meter #: [id number] Ordering Provider: MARIIA GR Report Released Date/Time: Mar 16, 2024 06:25 AM Reporting Lab: [address] [address] Performing Lab: [address] [address] [facility] GLUCOSE, BLOOD-po ct (STL) GLUCOSE [MASS/VOLU ME] IN BLOOD BY AUTOMATED TEST STRIP 89 mg/dL 72 - 99 03/15 Specimen Type: BLOOD Comment: Test Performed by: [id number] Meter #: [id number] Ordering Provider: MARIIA GR Report Released Date/Time: Mar 15, 2024 10:15 PM Reporting Lab: [address] [address] Performing Lab: [place] [id number] [place] [address] GLUCOSE, BLOOD-po ct (STL) GLUCOSE [MASS/VOLU ME] IN BLOOD BY AUTOMATED TEST STRIP 169 mg/dL 72 - 99 03/15 H Specimen Type: BLOOD Comment: Test Performed by: [id number] Meter #: [id number] Ordering Provider: MARIIA GR Report Released Date/Time: Mar 15, 2024 04:37 PM Reporting Lab: [address] [address] Performing Lab: [address] [address] [facility] BASIC METABOLI C PANEL CREATININE [MASS/VOLU ME] IN SERUM OR PLASMA 1.76 mg/dL 0.7 - 1.3 03/15 H Specimen Type: PLASMA Comment: No hemolysis noted. Ordering Provider: MAGDIEL CHAMPAGNE Report Released Date/Time: Mar 15, 2024 09:33 AM Reporting Lab: [address] [address] Performing Lab: [address] [address] [facility] BASIC METABOLI C PANEL UREA NITROGEN [MASS/VOLU ME] IN SERUM OR PLASMA 24.8 mg/dL 9.0 - 25.0 03/15 Specimen Type: PLASMA Comment: No hemolysis noted. Ordering Provider: MAGDIEL CHAMPGANE Report Released Date/Time: Mar 15, 2024 09:33 AM Reporting Lab: [address] [address] Performing Lab: [facility] [address] [place] [address] [facility] BASIC METABOLI C PANEL GLUCOSE [MASS/VOLU ME] IN SERUM OR PLASMA 259 mg/dL 72 - 99 03/15 H Specimen Type: PLASMA Comment: No hemolysis noted. Ordering Provider: MAGDIEL CHAMPAGNE Report Released Date/Time: Mar 15, 2024 09:33 AM Reporting Lab: [address] [address] Performing Lab: [address] [address] [facility] BASIC METABOLI C PANEL SODIUM [MOLES/VOL UME] IN SERUM OR PLASMA 134 meq/L 136 - 145 03/15 L Specimen Type: PLASMA Comment: No hemolysis noted. Ordering Provider: MAGDIEL CHAMPAGNE Report Released Date/Time: Mar 15, 2024 09:33 AM Reporting Lab: [facility] [address] [place] [address] Performing Lab: [address] [address] [facility] BASIC METABOLI C PANEL POTASSIUM [MOLES/VOL UME] IN SERUM OR PLASMA 3.7 meq/L 3.5 - 5 03/15 Specimen Type: PLASMA Comment: No hemolysis noted. Ordering Provider: MAGDIEL CHAMPAGNE Report Released Date/Time: Mar 15, 2024 09:33 AM Reporting Lab: [facility] [address] [place] [address] Performing Lab: [facility] [address] [place] [address] [facility] BASIC METABOLI C PANEL CHLORIDE [MOLES/VOL UME] IN SERUM OR PLASMA 107 meq/L 98 - 107 03/15 Specimen Type: PLASMA Comment: No hemolysis noted. Ordering Provider: MAGDIEL CHAMPAGNE Report Released Date/Time: Mar 15, 2024 09:33 AM Reporting Lab: [facility] [address] [facility] [address] Performing Lab: [facility] [address] [place] [address] [facility] BASIC METABOLI C PANEL CARBON DIOXIDE, TOTAL [MOLES/VOL UME] IN SERUM OR PLASMA 18 meq/L 22 - 31 03/15 L Specimen Type: PLASMA Comment: No hemolysis noted. Ordering Provider: MAGDIEL CHAMPAGNE Report Released Date/Time: Mar 15, 2024 09:33 AM Reporting Lab: [place] [address] [facility] [address] Performing Lab: [address] [address] [facility] BASIC METABOLI C PANEL CALCIUM [MASS/VOLU ME] IN SERUM OR PLASMA 8.8 mg/dL 8.4 - 10.4 03/15 Specimen Type: PLASMA Comment: No hemolysis noted. Ordering Provider: MAGDIEL CHAMPAGNE Report Released Date/Time: Mar 15, 2024 09:33 AM Reporting Lab: [place] [address] [facility] [address] Performing Lab: [facility] [address] [place] [address] [facility] BASIC METABOLI C PANEL GLOMERULAR FILTRATION RATE/1.73 SQ M.PREDICTE D [VOLUME RATE/AREA] IN SERUM, PLASMA OR BLOOD BY CREATININE -BASED FORMULA (CKD-EPI 2020) 37.7 60 03/15 Specimen Type: PLASMA Comment: No hemolysis noted. Ordering Provider: MAGDIEL CHAMPAGNE Report Released Date/Time: Mar 15, 2024 09:33 AM Reporting Lab: [facility] [address] [place] [address] Performing Lab: [facility] [address] [facility] [address] [facility] CBC LEUKOCYTES [#/VOLUME] IN BLOOD BY AUTOMATED COUNT 6.9 10*3/uL 3.6 - 11.2 03/15 Specimen Type: BLOOD No comment entered. Ordering Provider: MAGDIEL CHAMPAGNE Report Released Date/Time: Mar 15, 2024 09:33 AM Reporting Lab: [address] [address] Performing Lab: [address] [address] [facility] CBC ERYTHROCYT ES [#/VOLUME] IN BLOOD BY AUTOMATED COUNT 3.06 10*6/uL 4.10 - 5.70 03/15 L Specimen Type: BLOOD No comment entered. Ordering Provider: MAGDIEL CHAMPAGNE Report Released Date/Time: Mar 15, 2024 09:33 AM Reporting Lab: [address] [address] Performing Lab: [address] [address] [facility] CBC HEMOGLOBIN [MASS/VOLU ME] IN BLOOD 9.6 g/dL 13.1 - 16.8 03/15 L Specimen Type: BLOOD No comment entered. Ordering Provider: MAGDIEL CHAMPAGNE Report Released Date/Time: Mar 15, 2024 09:33 AM Reporting Lab: [address] [address] Performing Lab: [address] [address] [facility] CBC HEMATOCRIT [VOLUME FRACTION] OF BLOOD 28.7 38.2 - 48.4 03/15 L Specimen Type: BLOOD No comment entered. Ordering Provider: MAGDIEL CHAMPAGNE Report Released Date/Time: Mar 15, 2024 09:33 AM Reporting Lab: [address] [address] Performing Lab: [facility] [address] [facility] [address] [facility] CBC MCV [ENTITIC VOLUME] BY AUTOMATED COUNT 93.8 fL 80.0 - 100.0 03/15 Specimen Type: BLOOD No comment entered. Ordering Provider: MAGDIEL CHAMPAGNE Report Released Date/Time: Mar 15, 2024 09:33 AM Reporting Lab: [address] [address] Performing Lab: [address] [address] [facility] CBC MCH [ENTITIC MASS] BY AUTOMATED COUNT 31.4 pg 27.0 - 34.0 03/15 Specimen Type: BLOOD No comment entered. Ordering Provider: MAGDIEL CHAMPAGNE Report Released Date/Time: Mar 15, 2024 09:33 AM Reporting Lab: [address] [address] Performing Lab: [address] [address] [facility] CBC MCHC [MASS/VOLU ME] BY AUTOMATED COUNT 33.4 g/dL 33.0 - 36.0 03/15 Specimen Type: BLOOD No comment entered. Ordering Provider: MAGDIEL CHAMPAGNE Report Released Date/Time: Mar 15, 2024 09:33 AM Reporting Lab: [address] [address] Performing Lab: [address] [address] [facility] CBC PLATELETS [#/VOLUME] IN BLOOD BY AUTOMATED COUNT 339 10*3/uL 150 - 400 03/15 Specimen Type: BLOOD No comment entered. Ordering Provider: MAGDIEL CHAMPAGNE Report Released Date/Time: Mar 15, 2024 09:33 AM Reporting Lab: [address] [address] Performing Lab: [address] [facility] [address] [facility] CBC PLATELET MEAN VOLUME [ENTITIC VOLUME] IN BLOOD BY AUTOMATED COUNT 9.9 fL 7.5 - 11.2 03/15 Specimen Type: BLOOD No comment entered. Ordering Provider: MAGDIEL CHAMPAGNE Report Released Date/Time: Mar 15, 2024 09:33 AM Reporting Lab: [facility] [address] [facility] [address] Performing Lab: [facility] [address] [place] [address] [facility] CBC ERYTHROCYT E DISTRIBUTI ON WIDTH [RATIO] BY AUTOMATED COUNT 13.6 11.8 - 15.1 03/15 Specimen Type: BLOOD No comment entered. Ordering Provider: MAGDIEL CHAMPAGNE Report Released Date/Time: Mar 15, 2024 09:33 AM Reporting Lab: [facility] [address] [facility] [address] Performing Lab: [facility] [address] [facility] [address] [facility] CBC LYMPHOCYTE S/100 LEUKOCYTES IN BLOOD BY AUTOMATED COUNT 03/15 Specimen Type: BLOOD No comment entered. Ordering Provider: MAGDIEL CHAMPAGNE Report Released Date/Time: Mar 15, 2024 09:33 AM Reporting Lab: [place] [address] [facility] [address] Performing Lab: [facility] [address] [place] [address] [facility] CBC MONOCYTES/ 100 LEUKOCYTES IN BLOOD BY AUTOMATED COUNT 03/15 Specimen Type: BLOOD No comment entered. Ordering Provider: MAGDIEL CHAMPAGNE Report Released Date/Time: Mar 15, 2024 09:33 AM Reporting Lab: [facility] [address] [facility] [address] Performing Lab: [facility] [address] [facility] [address] [facility] CBC NEUTROPHIL S/100 LEUKOCYTES IN BLOOD BY AUTOMATED COUNT 51 03/15 Specimen Type: BLOOD No comment entered. Ordering Provider: MAGDIEL CHAMPAGNE Report Released Date/Time: Mar 15, 2024 09:33 AM Reporting Lab: [facility] [address] [facility] [address] Performing Lab: [facility] [address] [place] [address] [facility] CBC EOSINOPHIL S/100 LEUKOCYTES IN BLOOD BY AUTOMATED COUNT 6 03/15 Specimen Type: BLOOD No comment entered. Ordering Provider: MAGDIEL CHAMPAGNE Report Released Date/Time: Mar 15, 2024 09:33 AM Reporting Lab: [address] [address] Performing Lab: [address] [address] [facility] CBC BASOPHILS/ 100 LEUKOCYTES IN BLOOD BY AUTOMATED COUNT 1 03/15 Specimen Type: BLOOD No comment entered. Ordering Provider: MAGDIEL CHAMPAGNE Report Released Date/Time: Mar 15, 2024 09:33 AM Reporting Lab: [address] [address] Performing Lab: [address] [address] [facility] CBC LYMPHOCYTE S [#/VOLUME] IN BLOOD BY AUTOMATED COUNT 1.99 10*3/uL 0.77 - 4.50 03/15 Specimen Type: BLOOD No comment entered. Ordering Provider: MAGDIEL CHAMPAGNE Report Released Date/Time: Mar 15, 2024 09:33 AM Reporting Lab: [address] [address] Performing Lab: [address] [address] [facility] CBC MONOCYTES [#/VOLUME] IN BLOOD BY AUTOMATED COUNT 0.86 10*3/uL 0.19 - 0.80 03/15 H Specimen Type: BLOOD No comment entered. Ordering Provider: MAGDIEL CHAMPAGNE Report Released Date/Time: Mar 15, 2024 09:33 AM Reporting Lab: [address] [address] Performing Lab: [address] [address] [facility] CBC NEUTROPHIL S [#/VOLUME] IN BLOOD BY AUTOMATED COUNT 3.52 10*3/uL 2.10 - 8.00 03/15 Specimen Type: BLOOD No comment entered. Ordering Provider: MAGDIEL CHAMPAGNE Report Released Date/Time: Mar 15, 2024 09:33 AM Reporting Lab: [address] [address] Performing Lab: [address] [phone] [place] [address] CBC EOSINOPHIL S [#/VOLUME] IN BLOOD BY AUTOMATED COUNT 0.42 10*3/uL 0.00 - 0.60 03/15 Specimen Type: BLOOD No comment entered. Ordering Provider: MAGDIEL CHAMPAGNE Report Released Date/Time: Mar 15, 2024 09:33 AM Reporting Lab: [address] [address] Performing Lab: [address] [address] [facility] CBC BASOPHILS [#/VOLUME] IN BLOOD BY AUTOMATED COUNT 0.04 10*3/uL 0.00 - 0.20 03/15 Specimen Type: BLOOD No comment entered. Ordering Provider: MAGDIEL CHAMPAGNE Report Released Date/Time: Mar 15, 2024 09:33 AM Reporting Lab: [address] [address] Performing Lab: [address] [address] [facility] GLUCOSE, BLOOD-po ct (STL) GLUCOSE [MASS/VOLU ME] IN BLOOD BY AUTOMATED TEST STRIP 204 mg/dL 72 - 99 03/15 H Specimen Type: BLOOD Comment: Test Performed by: [id number] Meter #: [id number] Ordering Provider: MARIIA GR Report Released Date/Time: Mar 15, 2024 11:50 AM Reporting Lab: [facility] [address] [facility] [address] Performing Lab: [facility] [address] [place] [address] [facility] Vital Signs Combined list of inpatient and outpatient Vital Signs from Department of Defense and Veterans Affairs, ranging from 12 months to all on record, depending upon the facility. Vital Sign Value Date Comments Source SYSTOLIC BLOOD PRESSURE 148 07/10/2024 15:13:36 [facility] DIASTOLIC BLOOD PRESSURE 79 07/10/2024 15:13:36 [facility] PULSE OXIMETRY 98 07/10/2024 15:13:36 [facility] WEIGHT 168.9 07/10/2024 15:13:36 [facility] BMI 25 kg/m2 07/10/2024 15:13:36 [facility] PAIN 0 07/10/2024 15:13:36 [facility] HEIGHT 69 07/10/2024 15:13:36 [facility] TEMPERATURE 97.3 07/10/2024 15:13:36 [facility] PULSE 76 07/10/2024 15:13:36 [facility] RESPIRATION 20 07/10/2024 15:13:36 [facility] SYSTOLIC BLOOD PRESSURE 108 06/18/2024 17:24:00 [facility] DIASTOLIC BLOOD PRESSURE 69 06/18/2024 17:24:00 [facility] PAIN 6 06/18/2024 17:24:00 [facility] TEMPERATURE 98 06/18/2024 17:24:00 [facility] PULSE 91 06/18/2024 17:24:00 [facility] Caroline [facility] RESPIRATION 19 06/18/2024 17:24:00 [facility] Encounters Combined list of: 1) Encounters from Department of [facility] facilities going backup to the last 18 months, not all [place] inpatient encounters are included; 2) Encounters from the Department of [facility] facilities going backup to 280 months. Location Location Details Encounter Type Encounter Number Reason For Visit Attending Provider ADM Date DC Date Status Disposition Source [facility] EMERGENCY [place]PT [place] MDM [id number] Diagnos is: ICD-10- CM R53.1 Kyaw Reddy MD 12/27 [facility] Outpatient Encounter [id number] 12/27 [facility] IP/OBS CONSLTJ NEW/EST [facility] [id number] Diagnos is: ICD-10- CM I67.82 Cerebra l ischemi a JEFFERY AGUILAR 12/27 [facility] Inpatient Encounter [id number] Admit Reason: GER Card DYSARTH NAHOMY MARIIA BLANCHARD 12/27 [facility] DIV[facility] N [facility] Inpatient Encounter [id number] LORI LERNER 12/27 [facility] Inpatient Encounter [id number] CHEPE VARGAS 12/27 [facility] Inpatient Encounter [id number] ASHOK CARBAJALPRASANTH 12/27 [facility] Inpatient Encounter [id number] 2 GUERA CASTELLANOS Nomi 12/28 [facility] Inpatient Encounter [id number] GUERA CASTELLANOS C 12/28 [facility] Inpatient Encounter [id number] LORI LERNER 12/28 [facility] Inpatient Encounter [id number] LORI LERNER 12/28 [facility] IP/OBS CNSLTJ NEW/EST MOD 60 [id number] Diagnos is: ICD-10- CM I63.9 Cerebra l infarct ion, unspeci fied JEFFERY AGUILAR 12/28 [facility] GAIT TRAINING THERAPY [id number] Diagnos is: ICD-10- CM R53.1 GOKUL Campo 12/28 [facility] 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 [id number] Diagnos is: ICD-10- CM Z71.81 Spiritu al or religio us addictions counselor assistant NEDA Shaver 12/28 [facility] N [facility] Inpatient Encounter [id number] HANNAELIZABETH ALMA M 12/28 [facility] Inpatient Encounter [id number] LORI LERNER N 12/28 [facility] N [facility] Inpatient Encounter [id number] LORI LERNER N 12/28 [facility] N [facility] Inpatient Encounter [id number] LORI LERNER N 12/28 [facility] Inpatient Encounter [id number] PRASANTH CHURCH 12/28 [facility] Inpatient Encounter [id number] GUERA CASTELLANOS 12/28 [facility] Inpatient Encounter [id number] GUERA CASTELLANOS 12/28 [facility] Inpatient Encounter [id number] Pipo SANON 12/29 [facility] Inpatient Encounter [id number] OTONIEL SILVA 12/29 [facility] Inpatient Encounter [id number] GUERA CASTELLANOS KARI Mosher 12/29 [facility] Inpatient Encounter [id number] [facility]ERA CA[facility]LLANOS [facility] Inpatient Encounter [id number] LORI LERNER 12/30 [facility] SELF CARE MNGMENT TRAINING [id number] Diagnos is: ICD-10- CM R53.1 JT Lomas 12/30 [facility] Inpatient Encounter [id number] FRAN LITTLE 12/30 [facility] Inpatient Encounter [id number] 1 [facility]LE [facility] En[facility] [id number] OTONIEL SILVA 12/30 [facility] THERAPEUTI C ACTIVITIES [id number] Diagnos is: ICD-10- CM R53.1 LORETA Peralta 12/30 [facility] Inpatient Encounter [id number] FRAN LITTLE 12/30 [facility] Inpatient Encounter [id number] ANDREE ISLAS 12/31 [facility] Inpatient Encounter [id number] ANDREE ISLAS 12/31 [facility] Inpatient Encounter [id number] FRAN LITTLE K 12/31 [facility] Inpatient Encounter [id number] FRAN LITTLE 12/31 [facility] Inpatient Encounter [id number] Diagnos is: ICD-10- CM I10 Essenti al (primar y) hyperte nsion MAX HODGSON P 12/31 [facility] MNENT TRAINING [id number] Diagnos is: ICD-10- CM R53.1 JT Lomas 12/31 [facility] Inpatient Encounter [id number] 12/31 [facility] Inpatient Encounter [id number] SOLORZANO CARINAASE R [facility] Inpatient Encounter [id number] FRAN LITTLE K 12/31 [facility] Inpatient Encounter [id number] SOLORZANO CARINAASE R 12/31 [facility] Inpatient Encounter [id number] RAMIRO GOMEZ ISS 12/31 [facility] Inpatient Encounter [id number] RAMIRO GOMEZ ISS 12/31 [facility] Inpatient Encounter [id number] RAMIRO GOMEZ ISS 01/01 [facility] Inpatient Encounter [id number] JANAY MAX 01/[address] [facility] Encounter [id number] FRAN LITTLE K 01/01 [facility] [facility] En[facility] 69868-9.65 [id number] 4 FRAN LITTLE K [facility]01 [facility] Inpatient Encounter 99748-3.65 [id number] 1 ADEX,FLAQUITO 01/01 [facility] Inpatient Encounter 72677-9.65 [id number] 3 ADEX,FLAQUITO 01/01 [facility] N [facility] Outpatient Encounter 97895-1.65 [id number] 1 01/02 [facility] Outpatient Encounter 62888-8.65 [id number] 8 01/02 [facility] Outpatient Encounter 13192-2.65 [id number] 4 01/02 [facility] Outpatient Encounter 42452-6.65 [id number] 0 01/02 [facility] OFFICE O/P EST MOD 30 MIN 16354-7.65 [id number] 2 Diagnos is: ICD-10- CM I63.9 Cerebra l infarct ion, unspeci fied HELLEN GONZALEZ 01/03 [facility] Outpatient Encounter 97380-4.65 [id number] 7 ANAYA COLEY 01/07 [facility] Outpatient Encounter 04845-6.65 [id number] 2 BRIAN WALTON 01/08 [facility] Outpatient Encounter 35015-2.65 [id number] 5 Josh CABA 01/08 [facility] Outpatient Encounter 12654-7.65 [id number] 9 01/10 [facility] Outpatient Encounter 95738-0.65 [id number] 6 01/13 [facility] Outpatient Encounter 76456-8.65 [id number] 7 01/14 [facility] Outpatient Encounter 78273-5.65 [id number] 5 01/15 [facility] Outpatient Encounter 28268-3.65 [id number] 5 01/21 [facility] Outpatient Encounter 09494-2.65 [id number] 5 01/21 [facility] Outpatient Encounter 15666-4.65 [id number] 2 Josh CABA 01/29 [facility] Outpatient Encounter 65475-7.65 [id number] 4 02/02 [facility] Outpatient Encounter 79514-8.65 [id number] 4 02/03 [facility] Outpatient Encounter 13928-9.65 [id number] 9 02/06 [facility] EMERGENCY DEPT VISIT MOD MDM 79941-2.65 [id number] 8 Diagnos is: ICD-10- CM R53.1 Kyaw Reddy MD 03/02 [facility] Outpatient Encounter 22559-8.65 [id number] 5 03/02 [facility] Inpatient Encounter 05229-8.65 [id number] 2 Admit Reason: URINARY TRACT INFECTI ON SIMÓN,MED 03/02 [facility] Inpatient Encounter 92013-0.65 [id number] 3 KASSIEVaneALLISON ON,NUNO M 03/02 [facility] Inpatient Encounter 59831-6.65 [id number] 6 KASSIE-ALLISON ON,NUNO M 03/02 [facility] Inpatient Encounter 04242-6.65 [id number] 2 KASSIE-ALLISON ON,NUNO M 03/02 [facility] Inpatient Encounter 71448-8.65 [id number] 8 KASSIEVaneALLISON ON,NUNO M 03/02 [facility] Inpatient Encounter 00549-6.65 [id number] 2 IRENE PARADA SON JR 03/03 [facility] Inpatient Encounter 05861-1.65 [id number] 4 Kristina REYES 03/03 [facility] THERAPEUTI C ACTIVITIES 42985-3.65 [id number] 5 Diagnos is: ICD-10- CM R53.1 LORETA Peralta 03/03 [facility] Inpatient Encounter 04265-2.65 [id number] 4 MATT FORD S 03/03 [facility] Inpatient Encounter 74847-5.65 [id number] 9 SHERJOHN CARINASUNILJosh S 03/03 [facility] Inpatient Encounter 76846-3.65 [id number] 2 SHERMADELAINEFEDERICO BATESJosh Card 03/03 [facility] Inpatient Encounter 18551-5.65 [id number] 0 GLENJANAMATT 03/03 [facility] OFF/OP CONSLTJ NEW/EST SF 20 51123-6.65 [id number] 2 Diagnos is: ICD-10- CM N39.0 Urinary tract infecti on, site not specifi ed Dejon NUNEZ 03/03 [facility] Inpatient Encounter 48608-5.65 [id number] 1 MATT FORD 03/03 [facility] Inpatient Encounter 62999-4.65 [id number] 5 KAYCEE,EDM UND T 03/03 [facility] Inpatient Encounter 64665-5.65 [id number] 1 KAYCEE,EDM UND T 03/03 [facility] Inpatient Encounter 51968-3.65 [id number] 8 NETTEY,EDM UND T 03/03 [facility] Inpatient Encounter 05790-0.65 [id number] 5 NETTEY,EDM UND T 03/03 [facility] Inpatient Encounter 19348-8.65 [id number] 5 03/04 [facility] Inpatient Encounter 17131-4.65 [id number] 6 NETTEY,EDM UND T 03/04 [facility] Inpatient Encounter 41869-7.65 [id number] 4 NETTEY,EDM UND T 03/04 [facility] Inpatient Encounter 46746-5.65 [id number] 2 NETTEY,EDM UND T 03/04 [facility] Inpatient Encounter 99226-1.65 [id number] 9 MARVIN 03/04 [facility] Inpatient Encounter 03107-2.65 [id number] 3 03/04 [facility] Inpatient Encounter 69544-3.65 [id number] 0 03/04 [facility] Inpatient Encounter 06685-0.65 [id number] 2 03/04 [facility] Inpatient Encounter 98070-0.65 [id number] 7 03/04 [facility] IP/OBS CONSLTJ NEW/EST HI 80 69500-2.65 [id number] 8 Diagnos is: ICD-10- CM M54.2 Cervica floweria ANNIE SAUCEDO A 03/04 [facility] Inpatient Encounter 39489-0.65 [id number] 8 03/04 [facility] Inpatient Encounter 00189-6.65 [id number] 4 03/04 [facility] QNHP OL DIG ASSMT&MGMT 11-20 37153-1.65 [id number] 1 Diagnos is: ICD-10- CM Z51.81 Encount er for therape utic drug level monitor NATHALIA Key 03/04 [facility] Inpatient Encounter 74152-6.65 [id number] 7 03/04 [facility] THERAPEUTI C EXERCISES 25408-9.65 [id number] 5 Diagnos is: ICD-10- CM R53.1 LORETA Peralta 03/04 [facility] Inpatient Encounter 26273-2.65 [id number] 7 PACO GORDON RADHA 03/04 [facility] Inpatient Encounter 26358-8.65 [id number] 5 03/04 [facility] Inpatient Encounter 33003-9.65 [id number] 9 03/04 [facility] Inpatient Encounter 61582-0.65 [id number] 3 Dejon BLANKENSHIP 03/04 [facility] Inpatient Encounter 08928-8.65 [id number] 1 Dejon BLANKENSHIP 03/04 [facility] Inpatient Encounter 13745-7.65 [id number] 3 Dejon BLANKENSHIP 03/04 [facility] Inpatient Encounter 69404-8.65 [id number] 0 JAGRUTI MERRILL 03/05 [facility] Inpatient Encounter 87026-2.65 [id number] 4 Dejon BLANKENSHIP 03/05 [facility] Inpatient Encounter 90159-5.65 [id number] 4 KHOA CRUZ 03/05 [facility] Inpatient Encounter 20116-5.65 [id number] 1 KHOA CRUZ NNSHELL 03/05 [facility] IP/OBS CONSLTJ NEW/EST HI 80 88686-6.65 [id number] 7 Diagnos is: ICD-10- CM I63.9 Cerebra l infarct ion, unspeci JEFFERY Gatica 03/05 [facility] THERAPEUTI C ACTIVITIES 35436-1.65 [id number] 8 Diagnos is: ICD-10- CM R53.1 LORETA Peralta IN MARGY 03/05 [facility] Inpatient Encounter 30955-2.65 [id number] 3 KHOA CRUZ NNSHELL 03/05 [facility] 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 Inpatient Encounter 00330-8.65 [id number] 3 KHOA CRUZ NNSHELL 03/05 [facility] Inpatient Encounter 14314-3.65 [id number] 5 Dejon BLANKENSHIP 03/05 [facility] Inpatient Encounter 15050-5.65 [id number] 4 Dejon BLANKENSHIP 03/05 [facility] Encounter 59871-3.65 [id number] 9 Dejon BLANKENSHIP 03/06 [facility] Encounter 97294-5.65 [id number] 5 Dejon BLANKENSHIP 03/06 [facility] Encounter 32973-1.65 [id number] 3 Dejon BLANKENSHIP 03/06 [facility] Inpatient Encounter 41894-8.65 [id number] 0 JAGRUTI MERRILL 03/06 [facility] Inpatient Encounter 95692-9.65 [id number] 9 03/06 [facility] Encounter 00055-2.65 [id number] 2 03/06 [facility] Encounter 90136-6.65 [id number] 9 03/06 [facility] IP/OBS CNSLTJ NEW/EST MOD 60 92837-2.65 [id number] 3 Diagnos is: ICD-10- CM M47.892 Other spondyl osis, cervica l region CARAGINE,L OUIS P 03/06 [facility] SBSQ HOSP IP/OBS HIGH 50 87807-6.65 [id number] 8 Diagnos is: ICD-10- CM G00.9 Bacteri al meningi tis, unspeci fied JEFFERY AGUILAR 03/06 [facility] Inpatient Encounter 36307-2.65 [id number] 8 03/06 [facility] Inpatient Encounter 28518-0.65 [id number] 0 PACO GORDON 03/06 [facility] Inpatient Encounter 02856-6.65 [id number] 4 03/06 [facility] Inpatient Encounter 90158-1.65 [id number] 1 03/06 [facility] Inpatient Encounter 11197-5.65 [id number] 5 03/06 [facility] En[facility] 95463-8.65 [id number] 7 03/06 [facility] Inpatient Encounter 34932-6.65 [id number] 7 IRENE PARADA JR 03/07 [facility] Inpatient Encounter 82926-8.65 [id number] 6 IRENE PARADA JR 03/07 [facility] Inpatient Encounter 50973-4.65 [id number] 4 IRENE PARADA JR 03/07 [facility] Inpatient Encounter 42349-5.65 [id number] 7 IRENE PARADA JR 03/07 [facility] Inpatient Encounter 44481-2.65 [id number] 4 03/07 [facility] Inpatient Encounter 85311-0.65 [id number] 4 03/07 [facility] Inpatient Encounter 82934-0.65 [id number] 3 03/07 [facility] Inpatient Encounter 31472-4.65 [id number] 4 03/07 [facility] Inpatient Encounter 85427-0.65 [id number] 9 03/07 [facility] Inpatient Encounter 82314-3.65 [id number] 2 03/07 [facility] Inpatient Encounter 24787-0.65 [id number] 3 IRENE PARADA JR 03/07 [facility] Inpatient Encounter 21366-8.65 [id number] 9 IRENE PARAAD 03/08 [facility] Inpatient Encounter 60359-6.65 [id number] 7 IRENE PARADA 03/08 [facility] QNHP OL DIG ASSMT&MGMT 11-20 16760-1.65 [id number] 5 Diagnos is: ICD-10- CM Z51.81 Encount er for therape utic drug level monitor ing JARETH AGUIAR 03/08 [facility] Inpatient Encounter 12498-8.65 [id number] 4 03/08 [facility] Inpatient Encounter 08516-2.65 [id number] 6 03/08 [facility] Inpatient Encounter 67787-2.65 [id number] 8 03/08 [facility] Inpatient Encounter 99409-4.65 [id number] 5 03/08 [facility] Inpatient Encounter 10487-8.65 [id number] 5 03/08 [facility] Inpatient Encounter 38398-5.65 [id number] 9 03/08 [facility] Inpatient Encounter 03142-7.65 [id number] 1 IRENE PARADA JR 03/08 [facility] Inpatient Encounter 19449-8.65 [id number] 8 IRENE PARADA JR 03/08 [facility] Inpatient Encounter 63656-4.65 [id number] 0 IRENE PARADA JR 03/09 [facility] Inpatient Encounter 69282-7.65 [id number] 3 WILMAN HONEYCUTT 03/[facility] Inpatient Encounter 97659-1.65 [id number] 1 WILMAN HONEYCUTT 03/09 [facility] Inpatient Encounter 74045-8.65 [id number] 7 WILMAN HONEYCUTT 03/09 [facility] Inpatient Encounter 73702-6.65 [id number] 4 DIGNA ABRAHAM 03/09 [facility] Inpatient Encounter 80571-4.65 [id number] 0 JARAD,DIGNA DE P 03/09 [facility] En[facility] 33601-5.65 [id number] 0 DIGNA ABRAHAM DE P 03/[facility] Inpatient Encounter 28182-0.65 [id number] 5 DIGNA ABRAHAM DE P 03/10 [facility] Encounter 11487-9.65 [id number] 1 WILMAN HONEYCUTT 03/10 [facility] Inpatient Encounter 12754-9.65 [id number] 4 WILMAN HONEYCUTT 03/10 [facility] THERAPEUTI C ACTIVITIES 92663-2.65 [id number] 2 Diagnos is: ICD-10- CM R53.1 LORETA Peralta 03/10 [facility] Inpatient Encounter 83060-7.65 [id number] 0 DIGNA ABRAHAM DE P 03/10 [facility] Inpatient Encounter 29457-6.65 [id number] 1 DIGNA ABRAHAM DE P 03/10 [facility] Encounter 04050-2.65 [id number] 6 DIGNA ABRAHAM DE P 03/11 [facility] Encounter 47785-0.65 [id number] 4 DIGNA ABRAHAM HAMILTON 03/11 [facility] Inpatient Encounter 02402-2.65 [id number] 1 WILMAN HONEYCUTT Y 03/11 [facility] Inpatient Encounter 06523-3.65 [id number] 9 WILMAN HONEYCUTT Y 03/11 [facility] Inpatient Encounter 92506-1.65 [id number] 2 WILMAN HONEYCUTT Y 03/[facility] En[facility] 70049-9.65 [id number] 4 RAULITO SHANE RALDINE 03/11 [facility] Inpatient Encounter 80409-5.65 [id number] 9 RAULITO SHANE RALDINE 03/12 [facility] Encounter [id number] [id number] 5 RAULITO SHANE RALDINE 03/12 [facility] Encounter 72619-1.65 [id number] 7 MATT FORD 03/12 [facility] Inpatient Encounter 14807-1.65 [id number] 6 MATT FORD 03/12 [facility] GAIT TRAINING THERAPY 60141-4.65 [id number] 6 Diagnos is: ICD-10- CM R53.1 LORETA Peralta IN MARGY 03/12 [facility] OT EVAL LOW COMPLEX 30 MIN 51676-3.65 [id number] 2 Diagnos is: ICD-10- CM N39.0 Urinary tract infecti on, site not specifi ed ZACHERY PRIETO AM 03/12 [facility] Inpatient Encounter 55768-2.65 [id number] 0 PALLAVI CAO 03/12 [facility] Inpatient Encounter 24297-1.65 [id number] 6 MATT FORD 03/12 [facility] Inpatient Encounter 29595-7.65 [id number] 1 SINTIA REYES 03/12 [facility] Inpatient Encounter 56830-0.65 [id number] 7 SINTIA REYES 03/13 [facility] Inpatient Encounter 86125-3.65 [id number] 7 SINTIA REYES 03/13 [facility] Inpatient Encounter 75985-2.65 [id number] 3 SINTIA REYES 03/13 [facility] Inpatient Encounter 91650-8.65 [id number] 5 DEANNA MCDUFFIE 03/13 [facility] En[facility] 00728-3.65 [id number] 1 MATT FORD 03/13 [facility] Encounter 91308-9.65 [id number] 8 MATT FORD 03/13 [facility] Encounter 22627-4.65 [id number] 2 03/13 [facility] Inpatient Encounter 77105-5.65 [id number] 3 PACO GORDON 03/13 [facility] Inpatient Encounter 89789-1.65 [id number] 5 MATT FORD 03/13 [facility] Encounter 01133-1.65 [id number] 0 MATT FORD 03/13 [facility] Inpatient Encounter 51189-3.65 [id number] 7 KESHAV WEBBER LLY 03/14 [facility] Encounter 01489-1.65 [id number] 0 KESHAV WEBBER LLY 03/14 [facility] Inpatient Encounter 26701-2.65 [id number] 0 WILMAN HONEYCUTT Y 03/14 [facility] Inpatient Encounter 18234-6.65 [id number] 1 WILMAN HONEYCUTT Y 03/14 [facility] Inpatient Encounter 81807-9.65 [id number] 7 WILMAN HONEYCUTT Y 03/14 [facility] Inpatient Encounter 13904-1.65 [id number] 2 RAKESH WHEATLEY 03/14 [facility] Inpatient Encounter 41829-6.65 [id number] 2 RAKESH WHEATLEY 03/14 [facility] Inpatient Encounter 51868-3.65 [id number] 3 RAKESH WHEATLEY 03/14 [facility] Inpatient Encounter 56902-7.65 [id number] 7 RAKESH WHEATLEY 03/15 [facility] Inpatient Encounter 47505-4.[id number] 03/15 [facility] Inpatient Encounter 33065-3.65 [id number] 0 WILMAN HONEYCUTT 03/15 [facility] Inpatient Encounter 94968-7.65 [id number] 1 WILMAN HONEYCUTT 03/15 [facility] Inpatient Encounter 02753-8.65 [id number] 2 WILMAN HONEYCUTT Y 03/15 [facility] Inpatient Encounter 45759-7.65 [id number] 8 RAKESH WHEATLEY 03/15 [facility] Inpatient Encounter 87489-2.65 [id number] 3 RAKESH WHEATLEY 03/15 [facility] Inpatient Encounter 36790-1.65 [id number] 2 RAKESH WHEATLEY 03/15 [facility] Inpatient Encounter 13111-6.65 [id number] 4 RAKESH WHEATLEY 03/15 [facility] Inpatient Encounter 71410-5.65 [id number] 6 03/16 [facility] Inpatient Encounter 80962-2.[id number] 03/16 [facility] Inpatient Encounter 56219-8.65 [id number] 5 RAKESH WHEATLEY 03/16 [facility] Inpatient Encounter 38033-2.65 [id number] 4 JOSHUAVILMA ALANIZ Dano C 03/16 [facility] Outpatient Encounter 23958-9.65 [id number] Diagnos is: ICD-10- CM Z91.89 Oth persona l risk factors , not elsewhe re classif ied ANAYA COLEY CA E [facility] Out[facility] Encounter 57164-8.65 [id number] 8 ANAYA COLEY CA E 03/17 [facility] Outpatient Encounter 44606-1.65 [id number] 03/18 [facility] Outpatient Encounter [id number] RAULITO MAYERSA C 03/20 [facility] Outpatient Encounter [id number] 03/24 [facility] Outpatient Encounter [id number] 03/26 [facility] O/P EST HI 40 MIN [id number] Diagnos is: ICD-10- CM R33.8 Other retenti on of urine GUS,R ALPH J 04/01 [facility] Outpatient Encounter [id number] Josh CABA 04/21 [facility] O/P EST MOD 30 MIN [id number] Diagnos is: ICD-10- CM I63.9 Cerebra l infarct ion, unspeci fied GUS,R ALPH J 05/04 [facility] Outpatient Encounter [id number] 05/26 [facility] Outpatient Encounter [id number] 06/11 [facility] Outpatient Encounter [id number] 06/18 [facility] EMERGENCY DEPT VISIT LOW MDM [id number] Diagnos is: ICD-10- CM R51.9 Headach e, unspeci fied ALILE,SY ED K 06/18 [facility] Outpatient Encounter [id number] 06/18 [facility] Outpatient Encounter [id number] 07/01 [facility] OFFICE O/P EST MOD 30 MIN [id number] Diagnos is: ICD-10- CM 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 ANASTASIA RAUSCH 07/10 [facility] Outpatient Encounter [id number] Josh CABA 07/28 [facility] Outpatient Encounter [id number] 08/06 [facility] Outpatient Encounter [id number] 08/10 [facility] Outpatient Encounter [id number] 10/30 [facility] Outpatient Encounter [id number] Diagnos is: ICD-10- CM 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 Social History Type Response Date Comment [facility] Tobacco smoking status NHIS ORYX ADMIT TOBACCO SCREEN NO 03/02/2024 [facility] History of tobacco use ORYX ADMIT TOBACCO SCREEN NO 12/27/2023 [facility] History of tobacco use ORYX ADMIT TOBACCO SCREEN NO 10/16/2023 [facility] History of tobacco use VA-TOBACCO FORMER USER 09/30/2023 [facility] History of tobacco use VA-TOBACCO FORMER USER 12/12/2021 [facility] History of tobacco use VA-TOBACCO NEVER USED 05/27/2020 [facility] History of tobacco use VA-TOBACCO FORMER USER 11/06/2018 [facility] History of tobacco use QUIT TOBACCO >7 YEARS AGO 05/01/2018 [facility] History of tobacco use QUIT TOBACCO >7 YEARS AGO 10/23/2017 [facility] History of tobacco use QUIT TOBACCO >7 YEARS AGO 10/04/2016 [facility] History of tobacco use LIFETIME NON-USER OF TOBACCO 12/13/2015 [facility] History of tobacco use QUIT TOBACCO >7 YEARS AGO 11/04/2014 [facility] History of tobacco use CURRENT TOBACCO USER 07/08/2014 [facility] History of tobacco use LIFETIME NON-USER OF TOBACCO 09/03/2013 [facility] History of tobacco use QUIT TOBACCO >7 YEARS AGO 01/02/2007 [facility] History of tobacco use CURRENT NON-TOBACCO USER-HX OF USE 01/22/2006 [facility] History of tobacco use CURRENT NON-TOBACCO USER-HX OF USE 10/31/2004 [facility] History of tobacco use TOBACCO TERMINATION STAGE 02/02/2004 [facility]
--- OUTSIDE RECORDS SUMMARY | 2025-06-18 18:03 | XMS_ITS | Clinical Summary ---
Author Organization [facility] Address [address] [place] [address] Care Team Providers Care Concrete Vibrator Operator Name Role Phone Kevon Yang MD Primary Care Provider [phone] Allergies Active Allergy Reactions Criticality Noted Date [...] by mouth daily. Active Cholecalciferol 50 MCG (1999) Tab Take 50 mcg by mouth daily. Active losartan (COZAAR) 25 MG tablet Take 1 tablet (25 mg total) by mouth daily. Active [place]-3 Fatty Acids (FISH OIL) 1200 MG Cap Take 1 capsule by mouth daily. Active potassium chloride CR (KLOR-CON M) 20 MEQ tablet Take 1 tablet (20 mEq total) by mouth daily. Active ezetimibe (ZETIA) 10 MG tablet Take 1 tablet (10 mg total) by mouth daily. Active clopidogrel (PLAVIX) 75 MG tablet Take 1 tablet (75 mg total) by mouth daily. Active ferrous sulfate EC 325 (65 Fe) [...] gabapentin (NEURONTIN) 600 MG tablet 11/12/2024 Active atorvastatin (LIPITOR) 80 MG tablet Take 1 tablet (80 mg total) by mouth. 04/04/2024 Active FLUoxetine (PROZAC) 10 MG capsule 04/14/2025 Active Insulin Glargine-yfgn 100 UNIT/ML Solution Pen-injector Inject 15 Units into the skin. 01/29/2025 Active metoprolol succinate ER (TOPROL-XL) 25 MG 24 hr tablet Take 0.5 tablets (12.5 mg total) by mouth daily. 45 tablet 3 04/16/2025 Active Active Problems Problem Noted Date Diagnosed Date Coronary artery disease invo lving [place] coronary artery of [place] heart without angina pectoris 12/15/2024 History of [...] Encounters Date Type Department Care Team Description 06/15/2025 Telephone [facility] [address], [address] [address] Leslie Anguiano MD Schedule Test 06/03/2025 1:55 PM CDT - 06/03/2025 11:59 PM CDT Hospital [place] [address] Leslie Anguiano MD Discharge Disposition: Home or Self Care (Routine Discharge) 06/03/2025 Travel 05/04/2025 6:04 PM CDT - 05/04/2025 11:59 PM CDT Hospital Encounter [place] [address] Non-Staff, Provider Discharge Disposition: Home or Self Care (Routine Discharge) 05/04/2025 Orders [place] [address] Non-Staff, Provider 04/21/2025 10:00 AM CDT Office Visit [facility] [address], [address] [address] Leslie Anguiano MD Follow Up (Popliteal aneurysm) 04/21/2025 Travel 04/16/2025 8:45 AM CDT Office Visit [facility] [address] Torin Miller MD Coronary Artery Disease (2mo) 04/16/2025 Travel 03/31/2025 Telephone [facility] [address], [address] [address] Torin Miller MD Results 03/29/2025 1:11 PM CDT - 03/29/2025 11:59 PM CDT Hospital Encounter [facility] [place] [address] Torin Miller MD Discharge Disposition: Home or Self Care (Routine Discharge) 03/29/2025 Results Follow-Up [facility] [address] Gita Cevallos RN USV CAROTID DUPLEX JOSE C 03/29/2025 Travel from Last 3 Months Family History Medical History Relation Comments Heart Disease Father Asthma Mother Heart Disease Mother Relation Status Comments Father Mother Social History Tobacco Use Types Packs/Day Years Used Date Smoking Tobacco: Former Cigarettes S tarted: 1951 Tobacco Cessation:Counseling Given: Not Answered Sex and Gender Information Value Date Recorded Sex Assigned at Male 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 Sex Male 2:41 PM CDT Gender Identity Not on file Sexual Orientation Not on file Last Filed Vital Signs Vital Sign Reading Time Taken Comments Blood Pressure 104/78 04/21/2025 10:08 AM CDT Pulse 92 04/21/2025 10:08 AM CDT Temperature 36.4 C (97.5 F) 04/21/2025 10:08 AM CDT Respiratory Rate 18 04/21/2025 10:0 8 AM CDT Oxygen Saturation 100% 04/21/2025 10: 08 AM CDT 2 L nasal cannula Inhaled Oxygen Concentration - - Weight 78 kg (172 lb) 04/21/2025 10:08 AM CDT Height 176.5 cm (5' 9.5) 04/16/2025 8: 55 AM CDT Body Mass Index 25.04 04/16/2025 8:55 AM CDT Plan of Treatment Upcoming Encounters Date Type Department Care Team (Late st Contact Info) Description 06/21/2025 2:[address] [facility] [place] [address] Leslie Anguinao MD [address] [place] [id number] 06/23/2025 11:00 AM CDT [facility] [address] [place] [address] Leslie Anguiano MD [address] [place] [phone] Health Maintenance Due Date Last Done Comments [...] Name Priority Date/Time Associated Diagnosis Comments USV VEIN MAPPING LOW JOSE C Routine 06/03/2025 3:23 PM CDT Popliteal aneurysm Pre-operative cardiovascular examination Pain in both lower extremities CTA AORTO ILIOFEM RUNOFF Routine 06/03/2025 2:54 PM CDT Popliteal aneurysm Pre-operative cardiovascular examination Pain in both lower extremities COMPREHENSIVE METABOLIC PANEL Routine 05/04/2025 3:45 PM CDT Acute respiratory failure with hypoxia (CMS/HCC HHS/HCC) CBC W/DIFF AUTOMATED Routine 05/04/2025 3:45 PM CDT Acute respiratory failure with hypoxia (CMS/HCC HHS/HCC) USV CAROTID DUPLEX JOSE C Routine 3:44 PM CDT History of left-sided carotid endarterectomy Stenosis of carotid artery, unspecified laterality USE ECHOCARDIOGRAM W CON Routine 03/29/2025 2:16 PM CDT 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 Hx of CABG Chronic heart failure with preserved ejection fraction ([facility]) from Last 3 Months Results * USV VEIN MAPPING LOW JOSE C (06/03/2025 3:23 PM CDT) Anatomical Region Laterality Modality Extremity Vascular Ultraso und 06/03/2025 2:47 PM CDT Narrative 06/03/2025 5:13 PM CDT VEIN MAPPING FOR BYPASS BILATERAL LOWER EXTREMITY VASCULAR LAB Pat.Name: MAURICIO GARCES Pat.ID: [id number] .Date: 06/03/2025 Exam Time: 2:47:00 PM Study Type:ANNIE VS Miquel Mapping Bypass Legs JOSE C Height: 69 in Age: 7 1940,84Y Sex: M Sonogrphr: Constantin Mills RVT Pat. Stat.:Outpatient History / Clinical:preoperative exam Procedures: Kang scale, Color Doppler imaging, Doppler Spectral Analysis Race: W ++++++++++++++++++++++++++++++++++++ SUMMARY: ++++++++++++++++++++++++++++++++++++ Starr Mapping Vein Diameter Criteria: CABG = 2.0-4.0 mm. Extremity Bypass = >2.0 mm. Hemodialysis AVF = >2.0 mm Rad/Uln, >3.0 Brac/Fem AVF Unable to visualize adequate segments of the bilateral great saphenous and small saphenous veins. The proximal deep veins are patent with normal flow in a limited evaluation. CONCLUSION: Limited study. The proximal deep veins, which were visualized were patent and had normal flow. ++++++++++++++++++++++++++++++++++++ MEASUREMENTS: ++++++++++++++++++++++++++++++++++++ LEVEINS Right Prox Thigh Prox Thigh GSV 3.3 mm Left Prox Thigh Prox Thigh GSV 3.8 mm Left GSV Mid Calf GSV Mid Calf AP 1.8 mm Left GSV Dist Calf GSV Dist Calf 1.6 mm <Electronic Signature> 06/03/2025 05:13 PM Leslie Anguiano M.D. Procedure Note Leslie Anguiano MD - 06/03/2025 VEIN MAPPING FOR BYPASS BILATERAL LOWER EXTREMITY VASCULAR LAB Pat.Name: MAURICIO GARCES Pat.ID: [id number] .Date: 06/03/2025 Exam Time: 2:47:00 PM Study Type:ANNIE VS Miquel Mapping Bypass Legs JOSE C Height: 69 in Age: 7 1940,84Y Sex: M Sonogrphr: Constantin Mills RVT Pat. Stat.:Outpatient History / Clinical:preoperative exam Procedures: Kang scale, Color Doppler imaging, Doppler Spectral Analysis Race: W ++++++++++++++++++++++++++++++++++++ SUMMARY: ++++++++++++++++++++++++++++++++++++ Starr Mapping Vein Diameter Criteria: CABG = 2.0-4.0 mm. Extremity Bypass = >2.0 mm. Hemodialysis AVF = >2.0 mm Rad/Uln, >3.0 Brac/Fem AVF Unable to visualize adequate segments of the bilateral great saphenous and small saphenous veins. The proximal deep veins are patent with normal flow in a limited evaluation. CONCLUSION: Limited study. The proximal deep veins, which were visualized were patent and had normal flow. ++++++++++++++++++++++++++++++++++++ MEASUREMENTS: ++++++++++++++++++++++++++++++++++++ LEVEINS Right Prox Thigh Prox Thigh GSV 3.3 mm Left Prox Thigh Prox Thigh GSV 3.8 mm Left GSV Mid Calf GSV Mid Calf AP 1.8 mm Left GSV Dist Calf GSV Dist Calf 1.6 mm <Electronic Signature> 06/03/2025 05:13 PM Leslie Anguiano M.D. Leslie Anguiano MD [facility] Final Result * CTA AORTO ILIOFEM RUNOFF (06/03/2025 2:54 PM CDT) Anatomical Region Laterality Modality Abdomen, Pelvis, Extremity Compu juan pablo Tomography 06/11/2025 12:5 7 PM CDT Impressions 06/11/2025 1:36 PM CDT IMPRESSION: 1. 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 Majority thrombosed, with contrast opacified lumen with moderate stenosis. 2. Moderate to moderately severe stenosis of the left popliteal artery at the level of the aneurysm. 3. 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 4. Moderate 50% ostial stenosis celiac and SMA. 5. Severe 99% ostial stenosis right renal artery with moderate to severe right renal atrophy. 6. 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 7. Circumferential urinary bladder wall thickening which can be seen with cystitis. 8. Moderate four-chamber cardiomegaly. 9. Anemia. 10. Large left anterior abdominal parastomal hernia containing multiple loops of unremarkable small bowel and omental fat. 11. Question chronic liver disease. Ordered By: LESLIE ANGUIANO Interpreted By: Pieter Flores MD, 06/11/2025 12:57 PM Narrative 06/11/2025 1:36 PM CDT [facility] [address] [place], [place] [address] EXAM: CT angiogram aorta, iliofemoral vessels and bilateral lower extremities. Exam Date/Time: 06/03/2025 2:07 PM Indication: 85 male. Popliteal aneurysm preoperative assessment Technique: CT angiography of the abdominal aorta pelvic iliac vessels and bilateral lower extremities performed per protocol. Noncontrast images acquired through the abdominal aorta, pelvis and bilateral extremities, followed by postcontrast arterial CTA images following IV administration of 100 mL Isovue-370 contrast. 3-D reconstructions and postprocessing performed on a separate dedicated 3-D workstation. A dose lowering technique was used for this procedure, which may include, but is not limited to, dose reduction technique, automated exposure control, the use of iterative reconstruction, and ALARA (As Low As Reasonably Achievable) / Image Gently techniques. . CTA findings: VASCULAR: Aorta:Abdominal atherosclerosis. Mild suprarenal. Advanced into the infrarenal calcified noncalcified irregular ulcerated plaque. Moderate Concentric atherosclerotic wall calcification infrarenal abdominal aorta.. No aneurysmal dilatation. Maximum diameter of 2.6 cm. Multiple focal chronic dissection flaps infrarenal segment. Nonocclusive. Do not extend below the bifurcation. Celiac: Patent. Moderate 50% ostial stenosis. SMA:Patent. Moderate 50% ostial stenosis. VIJAY:Patent. Small caliber with probable stenoses. Right renal artery:Single. Patent. Small caliber mid near occlusive 99% ostial stenosis Left renal artery:Single. Patent. Mild ostial stenosis Right Leg Runoff: Right Iliac arteries: Mild common atherosclerosis. No stenosis. Minimal external iliac atherosclerosis. Right femoral popliteal:Mild minimal atherosclerosis. No critical stenosis Right tibial runoff: Proximal punctate calcifications, otherwise normal three- vessel patent runoff to the foot Left Leg Runoff: Left Iliac arteries:Mild common iliac atherosclerosis. No stenosis. Normal external iliac. Left femoral popliteal:Mild common femoral atherosclerosis. Mid and distal SFA are patent. Focal eccentric plaque ectasia to the adductor canal and could contribute to mild SFA stenosis. Proximal popliteal mild mid popliteal round saccular aneurysm 15.8 x 16.8 x 16.9 mm mostly thrombosed. Patent lateral eccentric the contrast opacified slightly lumen at the level of the aneurysm resulting in moderate to moderately severe stenosis. Left tibial runoff: Normal popliteal below the aneurysm with normal 3 vessel patent runoff to the foot. NONVASCULAR FINDINGS: Moderate four-chamber cardiomegaly. Anemia. Extensive the coronary artery disease, atherosclerosis, sequela of CABG. And cardiac valvular calcifications. No pericardial effusion. Trace left, Study is not tailored for assessment of soft tissues and viscera appears slightly small size of liver. Question micronodular contour. Correlate for chronic liver disease. Spleen gallbladder and adrenals unremarkable. Moderately severe right renal atrophy likely ischemic. Bilateral moderate hydronephroureter with obstruction at the level of the bladder. Normal bowel caliber in thickness. Posttreatment changes of subtotal colectomy. Large left anterior abdominal parastomal hernia containing multiple loops of unremarkable small bowel and omental fat. No bowel obstruction, incarceration strangulation or other acute abnormality seen.. Circumferential urinary bladder wall thickening which can be seen with cystitis. Mild bilateral body wall and upper thigh subcutaneous edema. Mild minimal heterogeneous bony demineralization. L5-S1 and L4-5 disc degeneration. . Procedure Note Pieter Flores MD - 06/11/[address] [address] EXAM: CT angiogram aorta, iliofemoral vessels and bilateral lowerextremities. Exam Date/Time: 06/03/2025 2:07 PM Indication: 85 male. Popliteal aneurysm preoperative assessment Technique: CT angiography of the abdominal aorta pelvic iliac vessels andbilateral lower extremities performed per protocol. Noncontrast imagesacquired through the abdominal aorta, pelvis and bilateral extremities,followed by postcontrast arterial CTA images following IV administrationof 100 mL Isovue-370 contrast. 3-D reconstructions and postprocessingperformed on a separate dedicated 3-D workstation. A dose loweringtechnique was used for this procedure, which may include, but is notlimited to, dose reduction technique, automated exposure control, the useof iterative reconstruction, and ALARA (As Low As Reasonably Achievable) /Image Gently techniques. . CTA findings: VASCULAR: Aorta:Abdominal atherosclerosis. Mild suprarenal. Advanced into theinfrarenal calcified noncalcified irregular ulcerated plaque. ModerateConcentric atherosclerotic wall calcification infrarenal abdominal aorta..No aneurysmal dilatation. Maximum diameter of 2.6 cm. Multiple focalchronic dissection flaps infrarenal segment. Nonocclusive. Do not extendbelow the bifurcation. Celiac: Patent. Moderate 50% ostial stenosis. SMA:Patent. Moderate 50% ostial stenosis. VIJAY:Patent. Small caliber with probable stenoses. Right renal artery:Single. Patent. Small caliber mid near occlusive 99%ostial stenosis Left renal artery:Single. Patent. Mild ostial stenosis Right Leg Runoff: Right Iliac arteries: Mild common atherosclerosis. No stenosis. Minimalexternal iliac atherosclerosis. Right femoral popliteal:Mild minimal atherosclerosis. No criticalstenosis Right tibial runoff: Proximal punctate calcifications, otherwise normalthree- vessel patent runoff to the foot Left Leg Runoff: Left Iliac arteries:Mild common iliac atherosclerosis. No stenosis. Normalexternal iliac. Left femoral popliteal:Mild common femoral atherosclerosis. Mid and distalSFA are patent. Focal eccentric plaque ectasia to the adductor canal andcould contribute to mild SFA stenosis. Proximal popliteal mild mid popliteal round saccular aneurysm 15.8 x 16.8x 16.9 mm mostly thrombosed. Patent lateral eccentric the contrastopacified slightly lumen at the level of the aneurysm resulting inmoderate to moderately severe stenosis. Left tibial runoff: Normal popliteal below the aneurysm with normal 3vessel patent runoff to the foot. NONVASCULAR FINDINGS: Moderate four-chamber cardiomegaly. Anemia. Extensive the coronary arterydisease, atherosclerosis, sequela of CABG. And cardiac valvularcalcifications. No pericardial effusion. Trace left, Study is not tailored for assessment of soft tissues and viscera appearsslightly small size of liver. Question micronodular contour. Correlate forchronic liver disease. Spleen gallbladder and adrenals unremarkable. Moderately severe right renal atrophy likely ischemic. Bilateral moderatehydronephroureter with obstruction at the level of the bladder. Normal bowel caliber in thickness. Posttreatment changes of subtotalcolectomy. Large left anterior abdominal parastomal hernia containingmultiple loops of unremarkable small bowel and omental fat. No bowelobstruction, incarceration strangulation or other acute abnormalityseen.. Circumferential urinary bladder wall thickening which can be seen withcystitis. Mild bilateral body wall and upper thigh subcutaneous edema. Mild minimalheterogeneous bony demineralization. L5-S1 and L4-5 disc degeneration. . IMPRESSION: 1. Left popliteal artery saccular widemouth aneurysm 15.8 x 16.8 x 16.9mm. Majority thrombosed, with contrast opacified lumen with moderatestenosis. 2. Moderate to moderately severe stenosis of the left popliteal artery atthe level of the aneurysm. 3. Advanced atherosclerosis infrarenal abdominal aorta with multiplechronic dissection flaps. 4. Moderate 50% ostial stenosis celiac and SMA. 5. Severe 99% ostial stenosis right renal artery with moderate to severeright renal atrophy. 6. Bilateral hydronephroureter with obstruction at the level of thebladder. 7. Circumferential urinary bladder wall thickening which can be seen withcystitis. 8. Moderate four-chamber cardiomegaly. 9. Anemia. 10. Large left anterior abdominal parastomal hernia containing multipleloops of unremarkable small bowel and omental fat. 11. Question chronic liver disease. Ordered By: LESLIE ANGUIANO Interpreted By: Pieter Flores MD, 06/11/2025 12:57 PM Leslie Anguiano MD CT Final Result * (ABNORMAL) COMPREHENSIVE METABOLIC PANEL (05/04/2025 3:45 PM CDT) GLUCOSE 47(L) 70 - 99 MG/DL 05/04/2025 6:27 PM CDT [facility] BUN 19(H) 7 - 18 MG/DL 05/04/2025 6:27 PM CDT [facility] CREATININE S/P/B 1.68(H) 0.7 - 1.3 MG/DL 05/04/2025 6:27 PM CDT [facility] SODIUM S/P/B 139 136 - 145 MMOL/L 05/04/2025 6:27 PM CDT [facility] POTASSIUM S/P/B 4.7 3.5 - 5.1 MMOL/L 05/04/2025 6:27 PM CDT [facility] CHLORIDE S/P/B 105 97 - 115 MMOL/L 05/04/2025 6:27 PM CDT [facility] CO2 26.7 21 - 32 MMOL/L 05/04/2025 6:27 PM T [facility] CALCIUM S/P/B 8.9 8.5 - 10.1 MG/DL 05/04/2025 6:27 PM T [facility] BILIRUBIN TOTAL S/P/B 0.4 0.2 - 1.2 MG/DL 05/04/2025 6:27 PM T [facility] Comment: THIS ASSAY IS NOT RECOMMENDED FOR PATIENTS UNDERGOING TREATMENT WITH ELTROMBOPAG DUE TO THE POTENTIAL FOR FALSELY ELEVATED RESULTS. TOTAL PROTEIN S/P/B 6.3(L) 6.4 - 8.2 G/DL 05/04/2025 6:27 PM T [facility] ALBUMIN S/P/B 2.6(L) 3.4 - 5.0 G/DL 05/04/2025 6:27 PM T [facility] AST 15 15 - 37 U/L 05/04/2025 6:27 PM T [facility] ALT 12(L) 16 - 60 U/L 05/04/2025 6:27 PM T [facility] ALKALINE PHOSPHATASE S/P/B 124 50 - 136 U/L 05/04/2025 6:27 PM T [facility] ANION GAP 7.3 2 - 10 MMOL/L 05/04/2025 6:27 PM T [facility] BUN CREATININE RATIO 11.3 6 - 26 05/04/2025 6:27 PM T [facility] A/G RATIO 0.7(L) 1.0 - 2.0 RATIO 05/04/2025 6:27 PM T [facility] GFR ESTIMATE 40(L) >90 ML/MIN/1.7 3 M2 05/04/2025 6:27 PM CDT [facility] Comment: NOTE: eGFR is not calculated for patients <18 years of age or gender unknown. This is an estimated GFR calculation using the new CKD EPI creatinine equation without race and so does not require a correction factor for race. This estimated GFR should not be used for calculating drug doses. 05/04/2025 3:45 PM CDT us Provider Non-Staff LABORATORY Final Result [facility] [address] [place] [address], * (ABNORMAL) CBC W/DIFF AUTOMATED (05/04/2025 3:45 PM CDT) WBC 7.77 4.5 - 11.0 x10'3/uL 05/04/2025 6:19 PM CDT [facility] RBC 2.77(L) 4.70 - 6.10 x10'6/uL 05/04/2025 6:19 PM CDT [facility] HGB 8.6(L) 14.0 - 18.0 G/DL 05/04/2025 6:19 PM CDT [facility] HCT 28.3(L) 43.0 - 54.0 % 05/04/2025 6:19 PM CDT [facility] MCV 102.2(H) 80.0 - 94.0 FL 05/04/2025 6:19 PM CDT [facility] MCH 31.0 27.0 - 31.0 PG 05/04/2025 6:19 PM CDT [facility] MCHC 30.4(L) 32.0 - 36.0 G/DL 05/04/2025 6:19 PM CDT [facility] RDW 13.9 11.5 - 14.5 % 05/04/2025 6:19 PM CDT [facility] PLT 171 130 - 400 x10'3/uL 05/04/2025 6:19 PM CDT [facility] MPV 11.0 9.3 - 12.2 FL 05/04/2025 6:19 PM CDT [facility] DIFFERENTIAL TYPE MANUAL DIFFERENTIAL 05/04/2025 7:10 PM CDT [facility] SEG NEUTROPHILS 63 % 7:10 PM CDT [facility] LYMPHOCYTES 13 % 05/04/2025 7:10 PM CDT [facility] MONOCYTES 20 % 05/04/2025 7:10 PM CDT [facility] EOSINOPHILS 4 % 05/04/2025 7:10 PM CDT [facility] ABS. NEUTROPHILS 4.90 1.80 - 7.70 x10'3/uL 05/04/2025 7:10 PM CDT [facility] ABS. LYMPHOCYTES 1.01 1.00 - 4.80 x10'3/uL 05/04/2025 7:10 PM CDT [facility] ABS. MONOCYTES 1.55(H) 0.30 - 0.82 x10'3/uL 05/04/2025 7:10 PM CDT [facility] ABS. EOSINOPHILS 0.31 0.04 - 0.54 x10'3/uL 05/04/2025 7:10 PM CDT [facility] RBC MORPHOLOGY RBC MORPHOLOGY APPEARS NORMAL. SLIDE REVIEWED. 05/04/2025 7:10 PM CDT [facility] PLT EST. ADEQUATE 05/04/2025 7:10 PM CDT [facility] 05/04/2025 3:45 PM CDT us Provider Non-Staff LABORATORY Final Result [facility] [address] [place] [address], * USV CAROTID DUPLEX JOSE C (03/29/2025 3:44 PM CDT) Anatomical Region Laterality Modality Neck Vascular Ultraso und 03/29/2025 2:22 PM CDT Narrative 03/29/2025 9:29 PM CDT CAROTID ARTERY DUPLEX IMAGING VASCULAR LAB Pat.Name: MAURICIO GARCES Pat.ID: [id number] .Date: 03/29/2025 Brina.MD: [id number] DOMINGA Ashford Exam Time: 2:22:00 PM Study Type:ANNIE VS Duplex Carotid BI Height: 69 in Age: 7 1940,84Y Sex: M Sonogrphr: Apoorva Oliveira RVT/Crista Eagle. Stat.:Outpatient History / Clinical:Bilateral carotid stenosis; s/p [...] CAROTID ARTERY DUPLEX IMAGING VASCULAR LAB Pat.Name: KATLYNMAURICIO JAIMES Pat.ID: [id number] .Date: 03/29/2025 : [id number] DOMINGA Ashford Exam Time: 2:22:00 PM Study [...] Signature> 03/29/2025 09:29 PM Dakota Huang M.D. us Torin Miller MD [facility] Final Result * USE ECHOCARDIOGRAM W CON (03/29/2025 2:16 PM CDT) Anatomical Region Laterality Modality NA Echocardiogram 03/29/2025 1:28 PM CDT Narrative 03/30/2025 5:51 PM CDT Echocardiography Report Pat.Name: MAURICIO AGRCES Pat.ID: [id number] .Date: 03/29/2025 Refer.MD: [id number] DOMINGA Ashford EWDPROV EWDPROV Exam Time: 1:28:00 PM Study Type:ECHO WITH CARDIAC DOPPLER COMP Height: 69 in Weight: 170 lb BSA: 1.93 m2 Age: 7 1940,84Y Sex: M BP: 119/55 HR: 76 bpm Sonogrphr: Abbie Alvarez [facility] Pat. Stat.:Outpatient Reason for Study:S/P AVR History [...] 49 mm Right Ventricle 44 mm Major [place] 79 mm MMODE TA Tricuspid Annul 21.4 mm ++++++++++++++++++++++++++++++++++++ WALL MOTION: ++++++++++++++++++++++++++++++++++++ RESTING WALL MOTION: Basal Inferoseptal, Basal Inferior, Basal Inferolateral, Basal Anterolateral hayden are hypokinetic. Normal wall motion in all other hayden. Wall Index = 1.2 <Electronic Signature> 03/30/2025 05:51 PM Torin Miller M.D. Procedure Note Torin Miller MD - 03/30/2025 Echocardiography Report Pat.Name: MAURICIO GARCES Shagufta.ID: [id number] .Date: 03/29/2025 : [id number] DOMINGA Ashford EWDPROV EWDPROV Exam Time: 1:28:00 PM Study Type:ECHO WITH CARDIAC DOPPLER COMP Height: 69 in Weight: 170 lb BSA: 1.93 m2 Age: 7 1940,84Y Sex: M BP: 119/55 HR: 76 bpm Sonogrphr: Abbie Alvarez [facility] Pat. Stat.:Outpatient Reason for Study:S/P AVR History [...] 49 mm Right Ventricle 44 mm Major [place] 79 mm MMODE TA Tricuspid Annul 21.4 mm ++++++++++++++++++++++++++++++++++++ WALL MOTION: ++++++++++++++++++++++++++++++++++++ RESTING WALL MOTION: Basal Inferoseptal, Basal Inferior, Basal Inferolateral, Basal Anterolateral hayden are hypokinetic. Normal wall motion in all other hayden. Wall Index = 1.2 <Electronic Signature> 03/30/2025 05:51 PM Torin Millre M.D. Torin Miller MD ECHO Final Result from Last 3 Months Insurance [employer] Member Subscriber Plan / Payer ( fective 2025-Present) Name:Mauricio Garces Relation to Subscriber:Self Name:RoyamagnusMauricio Payer ID:[id number] (NAIC) Type:Not on file Address: [address] [id number] MEDICARE Care Teams Concrete Vibrator Operator Relationship Specialty Start Date End Date Kevon Yang MD [address] [place] [address] PCP - General INTERNAL MEDICINE 06/03/25
[2025-06-18] MEDS: SODIUM CHLORIDE 0.9% IV 500 ML 999 ML IV CONT ×2 (18:45→20:05)
[2025-06-18 18:56] LABS: Hematocrit 29.5 % (42.0-52.0); Hemoglobin 9.0 g/dL (14.0-18.0); Immature Granulocyte Percent A 0.4 % (0-0.5); Immature Platelet Fraction Pct 9.1 % (0.9-11.2); Lymphocytes Absolute Auto 1.76 K/mm3 (0.9-3.2); Mean Corpuscular HGB Conc 30.5 g/dl (32-36); Mean Corpuscular Hemoglobin 30.2 pg (26-34); Mean Corpuscular Volume 99.0 fl (80-100); Nucleated Red Blood Cells Absolute Auto 0.000 K/mm3 (0.0-0.012); Nucleated Red Blood Cells Perc 0.0 % (0.0-0.2); Platelet Count Result 102 k/mm3 (150-375); Red Blood Count 2.98 M/mm3 (4.6-6.20); White Blood Count 9.5 K/mm3 (4.5-10.0)
[2025-06-18 18:59] LABS: INR 1.7; Prothrombin Time 20.2 Seconds (11.1-14.7)
[2025-06-18 19:00] LABS: Partial Thromboplastin Time 41.1 Seconds (22.3-36.8)
[2025-06-18 19:13] LABS: Alanine Aminotransferase 17 U/L (6-50); Albumin Level 2.7 g/dL (3.5-5.1); Alkaline Phosphatase 183 U/L (38-126); Anion Gap 8 mmol/L (4-12); Aspartate Amino Transferase 27 U/L (17-59); Bilirubin,Total 0.7 mg/dL (0.2-1.3); Blood Urea Nitrogen 33 mg/dL (9-20); Calcium 8.5 mg/dL (8.4-10.2); Carbon Dioxide 24 mmol/L (22-30); Chloride 101 mmol/L (98-107); Estimated Glomerular Filt Rate 34; Glucose 74 mg/dL (65-110); Potassium 4.7 mmol/L (3.4-5.0); Sodium 133 mmol/L (137-145); Total Protein 6.3 g/dL (6.3-8.2)
--- NOTE | 2025-06-18 19:25 | ED.GENADULT ---
HPI - General Adult General Chief complaint: Unspecified Stated complaint: POA Request, Not F[place] Well Time Seen by Provider: 06/18/25 17:46 History of Present Illness HPI narrative: 85-year-old male presents to the emergency department for evaluation for worsening lower extremity swelling. Does have pitting edema on his upper and lower extremities. Patient was reportedly recently diagnosed with congestive heart failure. Patient is on 2 L of oxygen by nasal cannula at all times. Patient has had his normal O2 requirement. Patient does have an echocardiogram from 2 months ago showing significantly decreased left ventricular ejection fraction. Related Data Home Medications ?Medication ?Instructions ?Recorded ?Confirmed ?Last Taken ?Type aspirin 81 mg tablet,delayed 81 mg PO DAILY 01/17/21 04/10/25 04/09/25 History release atorvastatin 40 mg tablet 80 mg PO HS 01/17/21 04/10/25 04/08/25 History insulin glargine 100 unit/mL (3 15 unit subcut BID 06/26/23 04/10/25 04/09/25 History mL) subcutaneous pen clopidogrel 75 mg tablet 75 mg PO DAILY 12/17/23 04/10/25 04/09/25 History acetaminophen 325 mg capsule 650 mg PO TID PRN pain 04/10/25 04/10/25 04/09/25 History cyanocobalamin (vitamin B-12) 1,000 mcg PO DAILY 04/10/25 04/10/25 04/09/25 History 1,000 mcg capsule diclofenac sodium 1 % topical gel 2.25 inch topical BID 04/10/25 04/10/25 04/09/25 History ferrous sulfate 325 mg (65 mg 325 mg PO DAILY 04/10/25 04/10/25 04/09/25 History iron) tablet finasteride 5 mg tablet 5 mg PO QAM 04/10/25 04/10/25 04/09/25 History fluoxetine 10 mg capsule 10 mg PO DAILY 04/10/25 04/10/25 04/09/25 History gabapentin 600 mg tablet 600 mg PO TID 04/10/25 04/10/25 04/09/25 History glucagon HCl 1 mg solution for 1 mg IM ONCE 04/10/25 04/10/25 11/10/24 History injection (Glucagon (HCl) Emergency Kit) insulin lispro 100 unit/mL 1 sliding scale dose subcut 04/10/25 04/10/2525 History subcutaneous solution (Humalog USEASDIRECTD U-100 Insulin) ondansetron HCl 4 mg tablet 4 mg PO Q6H PRN nausea and vomiting 04/10/25 04/10/25 01/28/25 History sennosides 8.6 mg-docusate sodium 1 tab-cap PO HS 04/10/25 04/10/25 04/08/25 History 50 mg capsule (Senna Plus) Allergies Allergy/AdvReac Type Severity Reaction Status Date / Time codeine Allergy Unknown Hives Verified 02/27/24 11:13 doxazosin Allergy Unknown Unknown Verified 02/27/24 11:13 egg Allergy Unknown Nausea Verified 02/27/24 11:13 erythromycin base Allergy Unknown Fever Verified 02/27/24 11:13 Influenza Virus Vaccines Allergy Unknown Unknown Verified 02/27/24 11:13 lisinopril Allergy Unknown Unknown Verified 02/27/24 11:13 metformin Allergy Unknown Unknown Verified 02/27/24 11:13 Penicillins Allergy Unknown Unknown Verified 04/12/25 12:22 strawberry Allergy Unknown Unknown Verified 06/18/25 21:50 Review of Systems Review of Systems: All systems reviewed & are unremarkable except as noted in HPI and below PMFSH Past Medical History Medical History (Updated 06/18/25 @ 22:16 by Dominik Moncada MD) 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 Stage 3b chronic kidney disease Atherosclerosis of aorta Type 2 diabetes mellitus with diabetic chronic kidney disease Hypothyroid 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 Enlarged prostate with lower urinary tract symptoms (LUTS) Type 2 diabetes mellitus with other circulatory complications Personal history of transient ischemic attack (TIA), and cerebral infarction without residual deficits History of rectal cancer LBBB (left bundle branch block) Sinus pause Hydronephrosis, left Hyperlipidemia Surgical History Surgical History (Updated 04/10/25 @ 01:19 by Rhona Serrano DO) History of aortic valve replacement History of left-sided carotid endarterectomy November 15, 2023 Colostomy status With parastomal hernia History of left inguinal hernia repair Repair of left inguinal hernia during colon resection in December 2004 and then repair of recurrent left inguinal hernia with mesh in May 2005. History of coronary artery bypass graft History of colon resection Exploratory laparotomy with abdominoperineal resection as well as a left inguinal hernia repair in December [address] Oliver for rectal cancer. Family History Family History Father Heart disease Mother Heart disease Asthma Sibling Heart disease Social History Social History (Updated 04/10/25 @ 05:07 by Rhona Serrano DO) Social History: The patient is . He and his read different nursing facilities. She is in a memory care unit. He used to work at a [employer] facility but is now retired. Used to smoke up to 2 packs of cigarettes per day for 40 years. He evidently used to drink quite heavily when he was young the but he states that he has not drank in years. He ambulates with a walker. Code status: Full code (per care home documentation) surrogate decision maker: Venu (son) Smoking packs per day: 2 Smoking cigarettes per day: 40.0 Years smoked: 40 Smoking pack-years: 80.00 Smoking status: Former smoker Tobacco type: cigarettes Second hand tobacco smoke exposure: Yes Smoking end date: 12/02/96 Alcohol intake: former Substance use: never Substance use type: does not use Do You Feel Safe in your Home?: Yes Lack of Transportation: No Lack of Food: Never True Current Housing: I Have Housing Concerned About Future Housing: No Difficulty Paying Gas/Electric Bills: No Difficulty Paying for Meds: No Currently Unemployed: No Education: High School Diploma/GED Difficulty w/ Childcare or Family Care: No Living arrangements: care home Occupation/Education: retired Gender identity (if verbalized by the patient): Male Sexual Orientation (if Verbalized by the Patient): Straight or Heterosexual Spiritual care concerns: No Exam Narrative: APPEARANCE: Ill-appearing HEAD: normocephalic, atraumatic. EYES: PERRLA/EOMI, conjunctivae clear. NOSE: Normal no drainage EARS:TMS clear with good light reflex. THROAT: Pharynx clear, no exudate. NECK: Supple. No adenopathy, no masses. RESPIRATORY: Airway patent, respirations nonlabored. Clear to auscultation bilaterally, no rales, rhonchi, wheezing. CARDIOVASCULAR: Regular rate and rhythm without murmurs rubs or gallops. ABDOMINAL: Soft, nontender, nondistended, normal bowel sounds MUSCULOSKELETAL: Upper lower extremity edema NEURO: Alert. Cranial nerves II through XII intact. Grossly intact SKIN: Warm, dry. Normal Color Course Vital Signs Vital signs: Vital Signs Temperature 97.5 F L 06/18/25 16:14 Pulse Rate 92 06/18/25 16:14 Respiratory Rate 12 06/18/25 16:14 Blood Pressure 84/62 L 06/18/25 16:14 Pulse Oximetry 96 06/18/25 16:14 Oxygen Delivery Nasal Cannula 06/18/25 16:14 Oxygen Flow Rate 2 06/18/25 16:14 Temperature 97.5 F L 06/18/25 16:14 Pulse Rate 92 06/18/25 16:14 Respiratory Rate 12 06/18/25 16:14 Blood Pressure 84/62 L 06/18/25 16:14 Pulse Oximetry 96 06/18/25 16:14 Oxygen Delivery Nasal Cannula 06/18/25 16:14 Oxygen Flow Rate 2 06/18/25 16:14 Medical Decision Making MDM Narrative Medical decision making narrative: 85-year-old male presents emergency department for evaluation for worsening edema. Patient is currently afebrile with no leukocytosis hemoglobin of 9.0 which is similar to his baseline. INR is 1.7. Patient's creatinine is 1.9 which is higher than his baseline of 1.3. Patient's lactic acid is 2.4. Patient's albumin is 2.7. Was treated with a L IV fluids due to concern pain control vascular depleted even though his 3rd spacing. Patient was also treated with with albumin. Has patient's blood pressure stabilizes he will also need further cardiac evaluation and diuresis. Differential Diagnosis Differential Diagnosis: CHF, pneumonia, dehydration, MARY Vital Signs Vital Signs: Vital Signs Temperature 97.5 F L 06/18/25 16:14 Pulse Rate 92 06/18/25 16:14 Respiratory Rate 12 06/18/25 16:14 Blood Pressure 84/62 L 06/18/25 16:14 Pulse Oximetry 96 06/18/25 16:14 Oxygen Delivery Nasal Cannula 06/18/25 16:14 Oxygen Flow Rate 2 06/18/25 16:14 Temperature 97.5 F L 06/18/25 16:14 Pulse Rate 92 06/18/25 16:14 Respiratory Rate 12 06/18/25 16:14 Blood Pressure 84/62 L 06/18/25 16:14 Pulse Oximetry 96 06/18/25 16:14 Oxygen Delivery Nasal Cannula 06/18/25 16:14 Oxygen Flow Rate 2 06/18/25 16:14 Lab Data Lab results reviewed: Yes I reviewed the patient's lab results. 06/18/25 18:41 06/18/25 18:41 Labs: Lab Results 06/18/25 06/18/25 06/18/25 Range/Units 18:40 18:41 20:25 WBC 9.5 (4.5-10.0) K/mm3 RBC 2.98 L (4.6-6.20) M/mm3 Hgb 9.0 L (14.0-18.0) g/dL Hct 29.5 L (42.0-52.0) % MCV 99.0 (80-100) fl MCH 30.2 (26-34) pg MCHC 30.5 L (32-36) g/dl RDW 15.6 H (11.5-14.5) % Plt Count 102 L D (150-375) k/mm3 MPV 11.8 H (7.4-10.4) fl Immature Gran % (Auto) 0.4 (0-0.5) % Neut % (Auto) 62.6 (45.5-73.1) % Lymph % (Auto) 18.6 (18.3-44.2) % [place] % (Auto) 15.7 H (2.6-8.5) % Eos % (Auto) 2.4 (0-4.4) % Baso % (Auto) 0.3 (0.2-1.2) % Lymph # (Auto) 1.76 (0.9-3.2) K/mm3 [place] # (Auto) 1.5 H (0.1-0.6) K/mm3 Eos # (Auto) 0.2 (0-0.3) K/mm3 Baso # (Auto) 0.0 (0.0-0.1) K/mm3 Abs Immat Gran (auto) 0.04 H (0.00-0.031) K/mm3 Absolute Neuts (auto) 5.9 (1.3-6.7) K/mm3 Absolute Nucleated RBC 0.000 (0.0-0.012) K/mm3 Nucleated RBC % 0.0 (0.0-0.2) % % Immature Plt Fraction 9.1 (0.9-11.2) % PT 20.2 H (11.1-14.7) Seconds INR 1.7 APTT 41.1 H (22.3-36.8) Seconds Sodium 133 L (137-145) mmol/L Potassium 4.7 (3.4-5.0) mmol/L Chloride 101 (98-107) mmol/L Carbon Dioxide 24 (22-30) mmol/L Anion Gap 8 (4-12) mmol/L BUN 33 H (9-20) mg/dL Creatinine 1.90 H (0.7-1.3) mg/dL Estim Creat Clear Calc Not Reportable Estimated GFR 34 L (59 - ) Glucose 74 (65-110) mg/dL Lactic Acid 2.4 H (0.7-2.0) mmol/L Calcium 8.5 (8.4-10.2) mg/dL Magnesium 2.0 (1.6-2.3) mg/dL Total Bilirubin 0.7 (0.2-1.3) mg/dL AST 27 (17-59) U/L ALT 17 (6-50) U/L Alkaline Phosphatase 183 H (38-126) U/L NT-Pro-B Natriuret Pep > 06776 H (19.9-100) pg/mL Total Protein 6.3 (6.3-8.2) g/dL Albumin 2.7 L (3.5-5.1) g/dL Urine Color Dark yellow (Yellow) Urine Appearance Turbid H (Clear) Urine pH 5.5 (5.0-9.0) Ur Specific [place] 1.017 (1.001-1.035) Urine Protein 1+ H (Negative) mg/dL Urine Glucose (UA) Negative (Negative) mg/dL Urine Ketones Negative (Negative) mg/dL Ur Blood (Man) 2+ H (Negative) Urine Nitrate Negative (Negative) Urine Bilirubin Negative (Negative) Urine Urobilinogen 1.0 (<2.0) mg/dL Leukocyte Esterase Rfl 3+ H (Negative) SIDDHARTH/UL Urine RBC 11-20 H (0-2) /hpf Urine WBC >100 H (0-3) /hpf Ur Squamous Epith Cells None seen (Few) /hpf Urine Bacteria 1+ H /hpf Urine Casts 3-5 Urine Yeast (Budding) Present H (None) /hpf Imaging Data Radiologist's impression: Impressions Chest X-Ray 06/18/25 19:11 IMPRESSION: Patchy bilateral airspace disease may represent edema or infection. Moderate right and small left pleural effusions Discharge Plan Discharge Clinical Impression: Edema, CHF (congestive heart failure), MARY (acute kidney injury) Patient Disposition: Still a Patient Condition: Serious Patient Language: Romanian Prescriptions: No Action insulin glargine 100 unit/mL (3 mL) insulin pen 15 unit SUBCUT BID clopidogrel 75 mg tablet 75 mg PO DAILY tamsulosin 0.4 mg capsule 0.4 mg PO DAILY Qty: 90 1RF atorvastatin 40 mg Tablet 80 mg PO HS aspirin 81 mg Tablet,Delayed Release (Dr/Ec) 81 mg PO DAILY gabapentin 600 mg tablet 600 mg PO TID finasteride 5 mg tablet 5 mg PO QAM fluoxetine 10 mg capsule 10 mg PO DAILY ondansetron HCl 4 mg tablet 4 mg PO Q6H PRN (Reason: nausea and vomiting) ferrous sulfate 325 mg (65 mg iron) tablet 325 mg PO DAILY acetaminophen 325 mg capsule 650 mg PO TID PRN (Reason: pain) Senna Plus 8.6-50 mg capsule 1 tab-cap PO HS Patient Comments: May hold for soft stool within 24 hours. cyanocobalamin (vitamin B-12) 1,000 mcg capsule 1,000 mcg PO DAILY diclofenac sodium 1 % gel 2.25 inch topical BID Rx Instructions: Apply to L Knee BID for chronic pain glucagon HCl [Glucagon (HCl) Emergency Kit] 1 mg recon soln 1 mg IM ONCE Patient Comments: Inject 1mg IM as needed for hypoglycemia per protocol insulin lispro [Humalog U-100 Insulin] 100 unit/mL solution 1 sliding scale dose subcut USEASDIRECTD Rx Instructions: Administer AC and HS If B-200 = 2u; 201-250 = 4u; 251-300 = 6u; 301-350 = 8u; 351-400 = 10u; 401-500 = 12u Over 500 Call provider. metronidazole 500 mg Tablet 500 mg PO Q8HR Qty: 6 0RF doxycycline hyclate 100 mg Tablet 100 mg PO Q12HR Qty: 6 0RF tramadol 50 mg tablet 50 mg PO TID Qty: 10 0RF levothyroxine 75 mcg tablet 75 mcg PO DAILY Qty: 90 1RF Follow-up/Referrals: Viraj Schafer MD [Primary Care Provider] -
[2025-06-18] MEDS: ALBUMIN HUMAN 25% 25 GM/100 ML 200 ML IVPB (19:36)
[2025-06-18 20:32] LABS: Magnesium 2.0 mg/dL (1.6-2.3)
[2025-06-18 20:52] LABS: Add Urine Microscopic? YES; Appearance Urine Turbid (Clear); Budding Yeast Urine Present /hpf; Glucose Urine UA Negative (Negative); Leukocyte Esterase Ur 3+ LEU/UL (Negative); Nitrate Urine Negative (Negative); Specific Grav Ur 1.017 (1.001-1.035)
[2025-06-18 21:06] LABS: NT Pro B Type Natriuretic Pept > 30000 pg/mL (19.9-100)
[2025-06-18 22:54] VITALS: BP 101/63
--- NOTE | 2025-06-18 23:08 | P.HP_ITS ---
H&P: HPI History of Present Illness Date/Time: 06/18/25 23:08 Chief Complaint: Swelling Narrative: 85-year-old male, chronically ill with PMH insulin-dependent diabetes mellitus, neurocognitive disorder, CKD, hypothyroidism, hypertension, BPH, history of rectal cancer, hyperlipidemia, heart failure, chronic hypoxic respiratory failure. Patient is brought in by his family noted to be more swollen than usual. Serum creatinine 1.9, higher than his baseline of about 1.3. Lactic acid 2.4. Hemoglobin 9.0 platelet 102, sodium 133 BNP greater than 30,000. Urinalysis abnormal. Chest x-ray with patchy bilateral airspace opacities, bilateral effusions. He was given 500 cc normal saline bolus and albumin infusion. 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 Enlarged prostate with lower urinary tract symptoms (LUTS) Type 2 diabetes mellitus with other circulatory complications Personal history of transient ischemic attack (TIA), and cerebral infarction without residual deficits History of rectal cancer LBBB (left bundle branch block) Sinus pause Hydronephrosis, left Hyperlipidemia Surgical History Surgical History (Updated 04/10/25 @ 01:19 by Rhona Serrano DO) History of aortic valve replacement History of left-sided carotid endarterectomy November 15, 2023 Colostomy status With parastomal hernia History of left inguinal hernia repair Repair of left inguinal hernia during colon resection in December 2004 and then repair of recurrent left inguinal hernia with mesh in May 2005. History of coronary artery bypass graft History of colon resection Exploratory laparotomy with abdominoperineal resection as well as a left inguinal hernia repair in December [address] Oliver for rectal cancer. Family History Family History Father Heart disease Mother Heart disease Asthma Sibling Heart disease Social History Social History (Updated 04/10/25 @ 05:07 by Rhona Serrano DO) Social History: The patient is . He and his read different nursing facilities. She is in a memory care unit. He used to work at a [employer] facility but is now retired. Used to smoke up to 2 packs of cigarettes per day for 40 years. He evidently used to drink quite heavily when he was young the but he states that he has not drank in years. He ambulates with a walker. Code status: Full code (per [facility] documentation) surrogate decision maker: Venu (son) Smoking packs per day: 2 Smoking cigarettes per day: 40.0 Years smoked: 40 Smoking pack-years: 80.00 Smoking status: Former smoker Tobacco type: cigarettes Second hand tobacco smoke exposure: Yes Smoking end date: 12/02/96 Alcohol intake: former Substance use: never Substance use type: does not use Do You Feel Safe in your Home?: Yes Lack of Transportation: No Lack of Food: Never True Current Housing: I Have Housing Concerned About Future Housing: No Difficulty Paying Gas/Electric Bills: No Difficulty Paying for Meds: No Currently Unemployed: No Education: High School Diploma/GED Difficulty w/ Childcare or Family Care: No Living arrangements: [facility] Occupation/Education: retired Gender identity (if verbalized by the patient): Male Sexual Orientation (if Verbalized by the Patient): Straight or Heterosexual Spiritual care concerns: No Meds Home Medications and Allergies Home Medications ?Medication ?Instructions ?Recorded ?Confirmed ?Type aspirin 81 mg tablet,delayed 81 mg PO DAILY 01/17/21 04/10/25 History release atorvastatin 40 mg tablet 80 mg PO HS 01/17/21 04/10/25 History levothyroxine 75 mcg tablet 75 mcg PO DAILY #90 tabs 02/18/23 04/10/25 Rx insulin glargine 100 unit/mL (3 15 unit subcut BID 06/26/23 04/10/25 History mL) subcutaneous pen clopidogrel 75 mg tablet 75 mg PO DAILY 12/17/23 04/10/25 History tamsulosin 0.4 mg capsule 0.4 mg PO DAILY #90 caps 02/27/24 04/10/25 Rx acetaminophen 325 mg capsule 650 mg PO TID PRN pain 04/10/25 04/10/25 History cyanocobalamin (vitamin B-12) 1,000 mcg PO DAILY 04/10/25 04/10/25 History 1,000 mcg capsule diclofenac sodium 1 % topical gel 2.25 inch topical BID 04/10/25 04/10/25 History ferrous sulfate 325 mg (65 mg 325 mg PO DAILY 04/10/25 04/10/25 History iron) tablet finasteride 5 mg tablet 5 mg PO QAM 04/10/25 04/10/25 History fluoxetine 10 mg capsule 10 mg PO DAILY 04/10/25 04/10/25 History gabapentin 600 mg tablet 600 mg PO TID 04/10/25 04/10/25 History glucagon HCl 1 mg solution for 1 mg IM ONCE 04/10/25 04/10/25 History injection (Glucagon (HCl) Emergency Kit) insulin lispro 100 unit/mL 1 sliding scale dose subcut 04/10/25 04/10/25 History subcutaneous solution (Humalog USEASDIRECTD U-100 Insulin) ondansetron HCl 4 mg tablet 4 mg PO Q6H PRN nausea and vomiting 04/10/25 04/10/25 History sennosides 8.6 mg-docusate sodium 1 tab-cap PO HS 04/10/25 04/10/25 History 50 mg capsule (Senna Plus) doxycycline hyclate 100 mg tablet 100 mg PO Q12HR #6 tabs 04/14/25 Rx metronidazole 500 mg tablet 500 mg PO Q8HR #6 tabs 04/14/25 Rx tramadol 50 mg tablet 50 mg PO TID #10 tabs 04/14/25 Rx Allergies Allergy/AdvReac Type Severity Reaction Status Date / Time codeine Allergy Unknown Hives Verified 02/27/24 11:13 doxazosin Allergy Unknown Unknown Verified 02/27/24 11:13 egg Allergy Unknown Nausea Verified 02/27/24 11:13 erythromycin base Allergy Unknown Fever Verified 02/27/24 11:13 Influenza Virus Vaccines Allergy Unknown Unknown Verified 02/27/24 11:13 lisinopril Allergy Unknown Unknown Verified 02/27/24 11:13 metformin Allergy Unknown Unknown Verified 02/27/24 11:13 Penicillins Allergy Unknown Unknown Verified 04/12/25 12:22 strawberry Allergy Unknown Unknown Verified 06/18/25 21:50 Vital Signs Vital Signs - 24 hr 06/18/25 16:14 06/18/25 16:14 06/18/25 22:54 Temperature 97.5 F L Pulse Rate 92 Respiratory Rate 12 20 Blood Pressure 84/62 L 101/63 Pulse Oximetry 96 Oxygen Delivery Nasal Cannula Oxygen Flow Rate 2 Exam Const: General: comfortable and no acute distress Other: A&O x1 HENMT: Mouth: Yes moist mucous membranes Eyes: Pupils: Equal, round and reactive pupils present Neck: Neck: supple Resp: Effort & Inspection: normal respiratory effort Other: Mild diffuse crackles while laying supine Cardio: Rate: regular rate Rhythm: regular rhythm Heart sounds: no gallops, no murmurs and no rubs GI: Inspection: non-distended GI Palp: Yes Soft to palpation : General: Yes bladder normal to palpation Extrem: General: edema H&P: Results Labs Labs: Short CBC 06/18/25 Range/Units 18:41 WBC 9.5 (4.5-10.0) K/mm3 Hgb 9.0 L (14.0-18.0) g/dL Hct 29.5 L (42.0-52.0) % Plt Count 102 L D (150-375) k/mm3 BMP 06/18/25 18:41 Sodium 133 L Potassium 4.7 Chloride 101 Carbon Dioxide 24 BUN 33 H Creatinine 1.90 H Glucose 74 Calcium 8.5 Liver Function 06/18/25 Range/Units 18:41 Total Bilirubin 0.7 (0.2-1.3) mg/dL AST 27 (17-59) U/L ALT 17 (6-50) U/L Alkaline Phosphatase 183 H (38-126) U/L Albumin 2.7 L (3.5-5.1) g/dL Urine 06/18/25 Range/Units 20:25 Urine Color Dark yellow (Yellow) Urine Appearance Turbid H (Clear) Urine pH 5.5 (5.0-9.0) Ur Specific [place] 1.017 (1.001-1.035) Urine Protein 1+ H (Negative) mg/dL Urine Glucose (UA) Negative (Negative) mg/dL Assessment and Plan Assessment and plan (1) CHF (congestive heart failure): Code(s): I50.9 - Heart failure, unspecified Status: Acute Plan Patient has a highly elevated BNP, greater than usual lower extremity swelling. He had a blood pressure of 84/62 in the ER and improved after albumin bolus and normal saline bolus to 101/63. His respiratory status is unchanged in the patient essentially has no complaints other than he feels malnourished because no one bring some food or drinks. He lives with his family and is dependent on wheelchair. He has mild acute decompensated heart failure. With his albumin 2.7 he will benefit from intravascular volume expansion. At this time will continue to monitor as he is hemodynamically stable. Check albumin in the a.m., consider starting Lasix. Family reports he was recently diagnosed by his PCP of heart failure but it does not appear he is on a diuretic. Ceftriaxone administered. Follow-up urine culture. SCDs. Follow-up platelet count. Trend renal function., patient okay with intubation, no CPR. Hospitalist [facility] Advance Care Plan I have confirmed that the patient's Advanced Care Plan is present, code status is documented, or surrogate decision maker is listed in patient medical record.: Yes Medication Reconciliation I have utilized all available resources to obtain, update and review the patients current medications (includes all prescriptions, OTC, herbals, cannabis, and nutritional supplements).: Yes
[2025-06-18 23:25] VITALS: BP 100/68; PULSE 97; RESP 20; TEMP 36.5; O2SAT 100; BMI 26.5
--- NOTE | 2025-06-18 23:25 | PC.NURSE ---
This patient, Mauricio Garces, was admitted to IMU Room 232-01 06/18/25 at 2325. Patient unable to be oriented to hospital policies and general routines including ID bracelet, bed and alarms, visiting hours, pain management, procedures, bathroom and other care routines, personal items, smoking policy, room service/diet, and visiting hours due to confusion Patient encouraged to report perceived risks to care and to ask questions if they do not understand what they are told or what they should do.
[2025-06-18 23:30] VITALS: PULSE 102
--- NOTE | 2025-06-18 23:33 | WNDPHOTO ---
PHOTO ONLY - See Nursing Notes and/ or assessments for documentation.
[2025-06-19] VITALS (13 sets, daily range): BP systolic 97–108; BP diastolic 61–69; PULSE 55–98; RESP 12–20; TEMP 36.1–36.7; O2SAT 95–100; BMI 26.5
[2025-06-19] MEDS: cefTRIAXone 1 GM in SODIUM CHLORIDE 0.9% IV 50 ML 100 ML IVPB ×2 (00:09→21:21)
[2025-06-19 04:43] LABS: Hematocrit 30.4 % (42.0-52.0); Hemoglobin 8.9 g/dL (14.0-18.0); Immature Granulocyte Percent A 0.5 % (0-0.5); Immature Platelet Fraction Pct 8.1 % (0.9-11.2); Lymphocytes Absolute Auto 1.26 K/mm3 (0.9-3.2); Mean Corpuscular HGB Conc 29.3 g/dl (32-36); Mean Corpuscular Hemoglobin 30.5 pg (26-34); Mean Corpuscular Volume 104.1 fl (80-100); Nucleated Red Blood Cells Absolute Auto 0.000 K/mm3 (0.0-0.012); Nucleated Red Blood Cells Perc 0.0 % (0.0-0.2); Red Blood Count 2.92 M/mm3 (4.6-6.20); White Blood Count 8.5 K/mm3 (4.5-10.0)
[2025-06-19 05:01] LABS: Platelet Count Result 87 k/mm3 (150-375)
[2025-06-19 05:02] LABS: Anisocytosis 1+; Band Neutrophils Percent 0 % (0-6); Burr Cells 1+; Schistocytes None Seen
[2025-06-19 05:05] LABS: Alanine Aminotransferase 14 U/L (6-50); Albumin Level 3.0 g/dL (3.5-5.1); Alkaline Phosphatase 159 U/L (38-126); Anion Gap 11 mmol/L (4-12); Aspartate Amino Transferase 24 U/L (17-59); Bilirubin,Total 1.2 mg/dL (0.2-1.3); Blood Urea Nitrogen 31 mg/dL (9-20); Calcium 8.6 mg/dL (8.4-10.2); Carbon Dioxide 20 mmol/L (22-30); Chloride 103 mmol/L (98-107); Estimated CRCL calculation 26 ml/min; Estimated Glomerular Filt Rate 35; Glucose 105 mg/dL (65-110); Magnesium 1.9 mg/dL (1.6-2.3); Potassium 5.0 mmol/L (3.4-5.0); Sodium 134 mmol/L (137-145); Total Protein 6.1 g/dL (6.3-8.2)
[2025-06-19] MEDS: LEVOTHYROXINE SODIUM 75 MCG TABLET PO (06:08)
[2025-06-19] MEDS: GABAPENTIN 300 MG CAPSULE 600 MG PO (08:34)
[2025-06-19] MEDS: TAMSULOSIN HCL 0.4 MG CAPSULE PO (08:35)
--- NOTE | 2025-06-19 10:28 | P.PNIM_ITS ---
Progress Note: A&P Assessment and Plan (1) CHF (congestive heart failure): Code(s): I50.9 - Heart failure, unspecified Status: Acute Plan anasarca Acute on chronic combined heart failure Last Echo 04/12/25 Ef 35-40% will start Lasix daily weight I/O fluid restriction MARY on CKD renally adjust med will monitor while on LAsix will get renal US malnutrition consult dietitian hypotension on admission received IV Albumin hold off Bp meds continue to monitor UTI on Rocephin will follow urine culture results pancytopenia will check iron/B12 and folic acid continue to [facility] debilitation PT/OT Cad S/P CABG Hold off plavix with anemia and low PLT continue ASA Subjective Date/time seen: 06/19/25 10:28 Interval history: per HPI: 85-year-old male, chronically ill with PMH insulin-dependent diabetes mellitus, neurocognitive disorder, CKD, hypothyroidism, hypertension, BPH, history of rectal cancer, hyperlipidemia, heart failure, chronic hypoxic respiratory failure. Patient is brought in by his family noted to be more swollen than usua l. Serum creatinine 1.9, higher than his baseline of about 1.3. Lactic acid 2.4. Hemoglobin 9.0 platelet 102, sodium 133 BNP greater than 30,000. Urinalysis abnormal. Chest x-ray with patchy bilateral airspace opacities, bilateral effusions. He was given 500 cc normal saline bolus and albumin infusion. 06/19/25 Patient was seen and examined at bedside. He is feeling fine. he does not know why he is in the hospital. On exam has anasarca. will start IV Lasix. ordered juan pablo hose. continue to monitor. 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 Review of Systems Review of Systems: All systems reviewed & are unremarkable except as noted in HPI and below (Subjective-HPI) Exam Const: General: comfortable and no acute distress Other: A&O x1 HENMT: Mouth: Yes moist mucous membranes Eyes: Pupils: Equal, round and reactive pupils present Neck: Neck: supple Resp: Effort & Inspection: normal respiratory effort Other: Mild diffuse crackles while laying supine Cardio: Rate: regular rate Rhythm: regular rhythm Heart sounds: no gallops, no murmurs and no rubs GI: Inspection: non-distended : General: Yes bladder normal to palpation Neuro: Cranial nerves: Yes Equal, round and reactive pupils present Extrem: General: edema Objective Data Vital Signs Vital Signs: Vital Signs - 24 hr 06/18/25 16:14 06/18/25 16:14 06/18/25 22:54 Temperature 97.5 F L Pulse Rate 92 Respiratory Rate 12 20 Blood Pressure 84/62 L 101/63 Pulse Oximetry 96 Oxygen Delivery Nasal Cannula Oxygen Flow Rate 2 06/18/25 23:25 06/18/25 23:30 06/19/25 00:00 Temperature 97.7 F Pulse Rate 97 102 H Respiratory Rate 20 Blood Pressure 100/68 Pulse Oximetry 100 100 Oxygen Delivery Nasal Cannula Oxygen Flow Rate 2 06/19/25 01:58 06/19/25 04:00 06/19/25 04:00 Temperature Pulse Rate 86 90 Respiratory Rate Blood Pressure Pulse Oximetry 100 Oxygen Delivery Nasal Cannula Oxygen Flow Rate 2 06/19/25 04:16 06/19/25 06:00 06/19/25 08:00 Temperature 97.7 F 97.2 F L Pulse Rate 96 83 85 Respiratory Rate 20 12 Blood Pressure 97/65 L 106/62 Pulse Oximetry 100 96 Oxygen Delivery Oxygen Flow Rate 06/19/25 08:00 Temperature Pulse Rate Respiratory Rate Blood Pressure Pulse Oximetry 95 Oxygen Delivery Nasal Cannula Oxygen Flow Rate 2 Intake/Output Intake/Output: Intake & Output 06/16/25 06/17/25 06/18/25 06/19/25 23:59 23:59 23:59 23:59 Intake Total 1200 50 Output Total 100 Balance 1200 -50 Meds/Results Medications: Active Medications Generic Name Dose Route Start Last Admin Trade Name Freq PRN Reason Stop Dose Admin Aspirin 81 mg 06/19/25 09:00 06/19/25 08:53 Aspirin 81 Mg Enteric Tablet PO Not Given DAILY [facility] Atorvastatin Calcium 80 mg 06/19/25 21:00 Atorvastatin 40 Mg Tablet PO [facility] Bisacodyl 10 mg 06/19/25 01:52 Bisacodyl 10 Mg Suppository RECTAL DAILY PRN constipation Clopidogrel Bisulfate 75 mg 06/19/25 09:00 06/19/25 08:53 Clopidogrel Bisulfate 75 Mg Tablet PO Not Given DAILY [facility] Cyanocobalamin 1,000 mcg 06/19/25 09:00 06/19/25 08:53 Cyanocobalamin 1,000 Mcg Tablet PO Not Given DAILY [facility] Dextrose 12.5 gm 06/18/25 23:36 Dextrose 50% 25 Gm/50 Ml Syringe IV PUSH PRN PRN Hypoglycemia Protocol Ferrous Sulfate 325 mg 06/19/25 09:00 06/19/25 08:53 Ferrous Sulfate [address] PO Not Given DAILY [facility] Finasteride 5 mg 06/19/25 09:00 06/19/25 08:53 Finasteride 5 Mg Tablet PO Not Given QAM [facility] Fluoxetine HCl 10 mg 06/19/25 09:00 06/19/25 08:53 Fluoxetine Hcl 10 Mg Capsule PO Not Given DAILY [facility] Gabapentin 600 mg 06/19/25 09:00 06/19/25 08:34 Gabapentin 300 Mg Capsule PO 300 mg BID [facility] Administration Glucose 15 gm 06/18/25 23:36 Glucose Oral Gel 15 Gm Of Glucse In 37.5 Gm Tube PO PRN PRN Hypoglycemia Protocol Dextrose 1,000 mls @ 100 mls/hr 06/18/25 23:36 Dextrose 5% 1,000 Ml IVPB PRN PRN Hypoglycemia Protocol Insulin Aspart 2 - 5 units 06/19/25 08:00 06/19/25 08:07 Insulin Aspart (*Bkc) 100 Units/Ml SUB-Q Not Given TIDWM [facility] Protocol Insulin Aspart 1 - 2 units 06/19/25 21:00 Insulin Aspart (*Bkc) 100 Units/Ml SUB-Q HS [facility] Protocol Levothyroxine Sodium 75 mcg 06/19/25 06:30 06/19/25 06:08 Levothyroxine Sodium 75 Mcg Tablet PO 75 mcg DAILY@0630 [facility] Administration Tamsulosin HCl 0.4 mg 06/19/25 09:00 06/19/25 08:35 Tamsulosin Hcl 0.4 Mg Capsule PO 0.4 mg DAILY [facility] Administration Radiology Results: ITS Impressions Chest X-Ray 06/18/25 19:11 IMPRESSION: Patchy bilateral airspace disease may represent edema or infection. Moderate right and small left pleural effusions Labs Labs: Laboratory Results - last 24 hr 06/18/25 06/18/25 06/18/25 18:40 18:41 20:25 WBC 9.5 RBC 2.98 L Hgb 9.0 L Hct 29.5 L MCV 99.0 MCH 30.2 MCHC 30.5 L RDW 15.6 H Plt Count 102 L D MPV 11.8 H Immature Gran % (Auto) 0.4 Neut % (Auto) 62.6 Lymph % (Auto) 18.6 Patrick % (Auto) 15.7 H Eos % (Auto) 2.4 Baso % (Auto) 0.3 Lymph # (Auto) 1.76 Patrick # (Auto) 1.5 H Eos # (Auto) 0.2 Baso # (Auto) 0.0 Abs Immat Gran (auto) 0.04 H Absolute Neuts (auto) 5.9 Absolute Nucleated RBC 0.000 Band Neutrophils % Nucleated RBC % 0.0 Platelet Estimate % Immature Plt Fraction 9.1 Anisocytosis [place] Cells Schistocytes PT 20.2 H INR 1.7 APTT 41.1 H Sodium 133 L Potassium 4.7 Chloride 101 Carbon Dioxide 24 Anion Gap 8 BUN 33 H Creatinine 1.90 H Estim Creat Clear Calc Not Reportable Estimated GFR 34 L Glucose 74 POC Capillary Glucose Lactic Acid 2.4 H Calcium 8.5 Phosphorus Magnesium 2.0 Total Bilirubin 0.7 AST 27 ALT 17 Alkaline Phosphatase 183 H NT-Pro-B Natriuret Pep > 27912 H Total Protein 6.3 Albumin 2.7 L Urine Color Dark yellow Urine Appearance Turbid H Urine pH 5.5 Ur Specific [place] 1.017 Urine Protein 1+ H Urine Glucose (UA) Negative Urine Ketones Negative Ur Blood (Man) 2+ H Urine Nitrate Negative Urine Bilirubin Negative Urine Urobilinogen 1.0 Leukocyte Esterase Rfl 3+ H Urine RBC 11-20 H Urine WBC >100 H Ur Squamous Epith Cells None seen Urine Bacteria 1+ H Urine Casts 3-5 Urine Yeast (Budding) Present H 06/18/25 06/18/25 06/19/25 22:39 23:52 04:38 WBC 8.5 RBC 2.92 L Hgb 8.9 L Hct 30.4 L MCV 104.1 H D MCH 30.5 MCHC 29.3 L RDW 15.7 H Plt Count 87 L MPV 11.3 H Immature Gran % (Auto) 0.5 Neut % (Auto) 69.3 Lymph % (Auto) 14.8 L Patrick % (Auto) 13.8 H Eos % (Auto) 1.4 Baso % (Auto) 0.2 Lymph # (Auto) 1.26 Patrick # (Auto) 1.2 H Eos # (Auto) 0.1 Baso # (Auto) 0.0 Abs Immat Gran (auto) 0.04 H Absolute Neuts (auto) 5.9 Absolute Nucleated RBC 0.000 Band Neutrophils % 0 Nucleated RBC % 0.0 Platelet Estimate Decreased % Immature Plt Fraction 8.1 Anisocytosis 1+ Nick Cells 1+ Schistocytes None seen PT INR APTT Sodium 134 L Potassium 5.0 Chloride 103 Carbon Dioxide 20 L Anion Gap 11 BUN 31 H Creatinine 1.82 H Estim Creat Clear Calc 26 Estimated GFR 35 L Glucose 105 POC Capillary Glucose 109 H Lactic Acid 1.9 Calcium 8.6 Phosphorus 3.1 Magnesium 1.9 Total Bilirubin 1.2 AST 24 ALT 14 Alkaline Phosphatase 159 H NT-Pro-B Natriuret Pep Total Protein 6.1 L Albumin 3.0 L Urine Color Urine Appearance Urine pH Ur Specific [place] Urine Protein Urine Glucose (UA) Urine Ketones Ur Blood (Man) Urine Nitrate Urine Bilirubin Urine Urobilinogen Leukocyte Esterase Rfl Urine RBC Urine WBC Ur Squamous Epith Cells Urine Bacteria Urine Casts Urine Yeast (Budding) 06/19/25 07:38 WBC RBC Hgb Hct MCV MCH MCHC RDW Plt Count MPV Immature Gran % (Auto) Neut % (Auto) Lymph % (Auto) Patrick % (Auto) Eos % (Auto) Baso % (Auto) Lymph # (Auto) Patrick # (Auto) Eos # (Auto) Baso # (Auto) Abs Immat Gran (auto) Absolute Neuts (auto) Absolute Nucleated RBC Band Neutrophils % Nucleated RBC % Platelet Estimate % Immature Plt Fraction Anisocytosis [place] Cells Schistocytes PT INR APTT Sodium Potassium Chloride Carbon Dioxide Anion Gap BUN Creatinine Estim Creat Clear Calc Estimated GFR Glucose POC Capillary Glucose 124 H Lactic Acid Calcium Phosphorus Magnesium Total Bilirubin AST ALT Alkaline Phosphatase NT-Pro-B Natriuret Pep Total Protein Albumin Urine Color Urine Appearance Urine pH Ur Specific [place] Urine Protein Urine Glucose (UA) Urine Ketones Ur Blood (Man) Urine Nitrate Urine Bilirubin Urine Urobilinogen Leukocyte Esterase Rfl Urine RBC Urine WBC Ur Squamous Epith Cells Urine Bacteria Urine Casts Urine Yeast (Budding)
--- NOTE | 2025-06-19 10:46 | PC.NURSE ---
Spoke with PT son Venu who is initial POA due to patients being in memory care with memory issues. Clarified code status after reviewing patient paperwork and current code status with Venu. Venu states he had a recent conversation with the patient, Maruicio who apparently stated he could be resuscitated but no machines. Notified Dr Mendes of wishes and gave him Bruce number for an update.
--- NOTE | 2025-06-19 11:58 | PCSTNOTE ---
Please refer to the Bedside Swallow Evaluation in the EMR. Please note, silent aspiration cannot be ruled out at bedside. This 85 year old male patient was admitted to [facility] on 06/18 due to swelling. The patient has a past medical history significant for neurocognitive disorder and diabetes. A beside swallow exam (BSE) was requested due to the patient choking on pills this morning. An oral motor exam was completed with the pt demonstrating a weak/wet cough at baseline, and a lack of tongue mobility (protrusion). The pt demonstrated difficulty with following some simple 1-step directions this date and required repetition throughout the BSE. The patient verbalized that he has had trouble swallowing for ~3 weeks and it tends to happen on all consistencies. Trials of thin liquid via cup edge and straw were trialed. On the first trial, the pt immediately coughed and throat cleared. On the second trial, the pt took a straw sip of thin liquid and immediately coughed again for 1-2 minutes. The pt?s vocal quality became wet/gurgly following the second trial. Oral transit was delayed and there was reduced laryngeal elevation. Due to the potential for aspiration and the pt demonstrating consistent s/s of aspiration (wet/gurgly voice, coughing), the BSE was discontinued at this time. Please note that silent aspiration cannot be ruled out at bedside. Given the results of this assessment, it is recommended that this pt be NPO until the completion of a Modified Barium Swallow Study (MBSS). There is currently no Radiologist on site today, 06/19, or tomorrow, 06/20, so the MBSS will be completed on Saturday, 06/21. Dr. Mendes and MAVIS Chau were notified of BSE results and recommendations. Thank you for this referral.
--- NOTE | 2025-06-19 12:18 | PC.NURSE ---
Due to concerns during bedside swallow study the patient will need a modified swallow study, radiology unavailable in-house until Saturday, made aware. PT is to be NPO.
[2025-06-19] MEDS: FUROSEMIDE INJ 40 MG/4 ML VIAL IV PUSH (12:20)
[2025-06-19 13:38] LABS: Vitamin B12 999.0 pg/mL (239-931)
[2025-06-19 14:20] LABS: Iron 20 ug/dL (49-181)
[2025-06-19 14:29] LABS: Percent Iron Saturation 10 % (20-50)
[2025-06-20] VITALS (7 sets, daily range): BP systolic 102–112; BP diastolic 54–74; PULSE 70–130; RESP 16–20; TEMP 36.5–36.8; O2SAT 96–98
[2025-06-20] MEDS: LEVOTHYROXINE SODIUM INJ 100 MCG/5 ML VIAL 37.5 MCG IV PUSH (05:44)
[2025-06-20 05:57] LABS: Hematocrit 30.1 % (42.0-52.0); Hemoglobin 9.3 g/dL (14.0-18.0); Mean Corpuscular HGB Conc 30.9 g/dl (32-36); Mean Corpuscular Hemoglobin 30.0 pg (26-34); Mean Corpuscular Volume 97.1 fl (80-100); Platelet Count Result 100 k/mm3 (150-375); Red Blood Count 3.10 M/mm3 (4.6-6.20); White Blood Count 11.3 K/mm3 (4.5-10.0)
[2025-06-20 06:16] LABS: Anion Gap 12 mmol/L (4-12); Blood Urea Nitrogen 34 mg/dL (9-20); Calcium 8.8 mg/dL (8.4-10.2); Carbon Dioxide 20 mmol/L (22-30); Chloride 103 mmol/L (98-107); Estimated CRCL calculation 26 ml/min; Estimated Glomerular Filt Rate 35; Glucose 129 mg/dL (65-110); Potassium 4.8 mmol/L (3.4-5.0); Sodium 135 mmol/L (137-145)
--- NOTE | 2025-06-20 08:30 | PM.CNNEP ---
Assessment and Plan Assessment and plan (1) Stage 3b chronic kidney disease: Code(s): N18.32 - Chronic kidney disease, stage 3b Status: Acute Assessment and Plan: The patient has chronic kidney disease with GFR is chronically between 40 and 50. Most likely this is due to diabetes, hypertension and vascular disease. He did have stone disease and an episode of hydronephrosis in the past which may contribute as well. His ultrasound does show small kidneys bilaterally. He has never been evaluated for this before so will check serology and immunofixation. The patient now has a GFR down to 34-35. This could be related to several things. Patient has bilateral hydronephrosis on his ultrasound. The bladder was small so this isn't from BPH. We can get a CT stone protocol to see if there are stones causing this. The patient has pyuria. This could contribute to a worsened creatinine. He is getting antibiotics for this. Cultures have been done. His peripheral white count is only 11 and he has no fever. He does not look toxic. The last time he had pyuria his urine culture was negative. The patient does have soft blood pressure. He is not taking any blood pressure medications. He could have progression of his underlying kidney disease as well. The patient does have a significant amount of swelling. This could be related to heart disease, proteinuria, retention of salt due to his kidney disease. I doubt if he has a retroperitoneal process causing all the swelling but the CT scan will rule this out. At this point will allow continuation of the furosemide. Check a CT without contrast stone protocol, check CK, urine electrolytes, fractional excretion of urea, and recheck his labs tomorrow. We will get Urology to see him tomorrow. (2) MARY (acute kidney injury): Code(s): N17.9 - Acute kidney failure, unspecified Status: Acute Assessment and Plan: See above (3) CHF (congestive heart failure): Code(s): I50.9 - Heart failure, unspecified Status: Acute Assessment and Plan: Patient has mild reduced ejection fraction plus diastolic dysfunction. (4) Abnormal urinalysis: Code(s): R82.90 - Unspecified abnormal findings in urine Status: Acute Assessment and Plan: Patient has pyuria. Last time he had this his culture was negative. Will repeat his culture now. He is getting antibiotics in case. (5) Type 2 diabetes mellitus with hyperglycemia, with long-term current use of insulin: Code(s): E11.65 - Type 2 diabetes mellitus with hyperglycemia; Z79.4 - medical terminologist (current) use of insulin Status: Acute Assessment and Plan: Hospitalists to manage this. (6) Renal calculus, left: Code(s): N20.0 - Calculus of kidney Status: Acute Assessment and Plan: Urology will see the patient (7) Anemia: Code(s): D64.9 - Anemia, unspecified Status: Acute Assessment and Plan: Hemoglobin is low but stable. Will watch this for now. No need for Epogen so far (8) Hyperlipidemia: Qualifiers: Hyperlipidemia type: unspecified Qualified Code(s): E78.5 - Hyperlipidemia, unspecified Code(s): E78.5 - Hyperlipidemia, unspecified Status: Chronic Assessment and Plan: The patient is on atorvastatin (9) Essential (primary) hypertension: Code(s): I10 - Essential (primary) hypertension Status: Acute Assessment and Plan: Blood pressure is soft. He is not getting any blood pressure pills. History of Present Illness Reason for Consult Consult date: 06/20/25 Chief Complaint Chief complaint: Acute kidney injury, edema History of Present Illness Narrative: Mauricio is a very pleasant 85-year-old gentleman who has multiple medical problems including diabetes, hypertension, coronary artery disease status post VA in the past, left bundle-branch block, sinus pause, atherosclerosis of the aorta, diabetes, history of TIA x3, hydronephrosis, hyperlipidemia, and chronic kidney disease. The patient came in the hospital because of swelling and shortness of breath. He says he has been sick off and on and hospitalized often on for multiple issues. This time the patient noted that he was more swollen than usual so brought him to the ER. He was evaluated and found to indeed be swollen. Labs were done which showed that his creatinine was higher than its usual. His BNP was greater than 30,000 and his urinalysis showed red cells and white cells. The patient was admitted, he received antibiotics, he received some furosemide, and renal consultation was requested. He says that he has never seen a kidney doctor before. His baseline kidney function seems to run between 1 and 1.3. He has no urinary symptoms. He has seen Urology in the past for hydronephrosis. He has had kidney stones. He has had a stent placed as well in 2020. At that point, his ultrasound showed 9.5R and 12.8cmL kidneys, and moderate left hydronephrosis.. This time it shows that both kidneys are 7.8cm and there is bilateral hydro. The patient has had no abdominal pain. Review of Systems Constitutional: Constitutional: Reports no additional constitutional complaints Eyes: Eyes: Reports no additional eye complaints ENT: Reports system reviewed and no additional complaints, except as documented Cardiovascular: Cardiovascular: Reports no additional cardiovascular complaints Respiratory: Respiratory: Reports no additional respiratory complaints Gastrointestinal: Gastrointestinal: Reports no additional gastrointestinal complaints Genitourinary: Genitourinary: Reports no additional male genitourinary complaints Musculoskeletal: Musculoskeletal: Reports no additional musculoskeletal complaints Integumentary/Breasts: Skin/Breast: Reports system reviewed and no additional complaints, except as docu Neurologic: Reports system reviewed and no additional complaints, except as documented Psychiatric: Psychiatric: Reports no additional psychiatric complaints Endocrine: Endocrine: Reports no additional endocrine complaints [facility] Past Medical History Medical History medical terminologist (current) use of insulin Stage 3b chronic kidney disease Atherosclerosis of aorta Type 2 diabetes mellitus with diabetic chronic kidney disease Hypothyroid Hypertensive chronic kidney disease Atherosclerotic heart disease of grindstone coronary artery with unspecified angina pectoris Enlarged prostate with lower urinary tract symptoms (LUTS) Type 2 diabetes mellitus with other circulatory complications Personal history of transient ischemic attack (TIA), and cerebral infarction without residual deficits History of rectal cancer LBBB (left bundle branch block) Sinus pause Hydronephrosis, left Hyperlipidemia Surgical History Surgical History History of left-sided carotid endarterectomy November 15, 2023 Colostomy status With parastomal hernia History of left inguinal hernia repair Repair of left inguinal hernia during colon resection in December 2004 and then repair of recurrent left inguinal hernia with mesh in May 2005. History of aortic valve replacement History of coronary artery bypass graft History of colon resection Exploratory laparotomy with abdominoperineal resection as well as a left inguinal hernia repair in December [address] Oliver for rectal cancer. Family History Family History Father Heart disease Mother Heart disease Asthma Sibling Heart disease Social History Social History Social History: The patient is . He and his read different nursing facilities. She is in a memory care unit. He used to work at a [employer] facility but is now retired. Used to smoke up to 2 packs of cigarettes per day for 40 years. He evidently used to drink quite heavily when he was young the but he states that he has not drank in years. He ambulates with a walker. Code status: Full code (per [facility] documentation) surrogate decision maker: Venu (son) Smoking packs per day: 2 Smoking cigarettes per day: 40.0 Years smoked: 40 Smoking pack-years: 80.00 Smoking status: Former smoker Tobacco type: cigarettes Second hand tobacco smoke exposure: Yes Smoking end date: 12/02/96 Alcohol intake: former Substance use: never Substance use type: does not use Do You Feel Safe in your Home?: Yes Lack of Transportation: No Lack of Food: Never True Current Housing: I Have Housing Concerned About Future Housing: No Difficulty Paying Gas/Electric Bills: No Difficulty Paying for Meds: No Currently Unemployed: No Education: High School Diploma/GED Difficulty w/ Childcare or Family Care: No Living arrangements: [facility] Occupation/Education: retired Gender identity (if verbalized by the patient): Male Sexual Orientation (if Verbalized by the Patient): Straight or Heterosexual Spiritual care concerns: No Meds Home Medications and Allergies Home Medications ?Medication ?Instructions ?Recorded ?Confirmed ?Type aspirin 81 mg tablet,delayed 81 mg PO DAILY 01/17/21 06/19/25 History release atorvastatin 40 mg tablet 80 mg PO HS 01/17/21 06/19/25 History levothyroxine 75 mcg tablet 75 mcg PO DAILY #90 tabs 02/18/23 06/19/25 Rx insulin glargine 100 unit/mL (3 15 unit subcut BID 06/26/23 06/19/25 History mL) subcutaneous pen clopidogrel 75 mg tablet 75 mg PO DAILY 12/17/23 06/19/25 History tamsulosin 0.4 mg capsule 0.4 mg PO DAILY #90 caps 02/27/24 06/19/25 Rx acetaminophen 325 mg capsule 650 mg PO Q8H PRN pain 04/10/25 06/19/25 History cyanocobalamin (vitamin B-12) 1,000 mcg PO DAILY 04/10/25 06/19/25 History 1,000 mcg capsule diclofenac sodium 1 % topical gel 2.25 inch topical BID 04/10/25 06/19/25 History ferrous sulfate 325 mg (65 mg 325 mg PO DAILY 04/10/25 06/19/25 History iron) tablet finasteride 5 mg tablet 5 mg PO QAM 04/10/25 06/19/25 History fluoxetine 10 mg capsule 10 mg PO DAILY 04/10/25 06/19/25 History gabapentin 600 mg tablet 600 mg PO BID 04/10/25 06/19/25 History insulin lispro 100 unit/mL 1 sliding scale dose subcut 04/10/25 06/19/25 History subcutaneous solution (Humalog USEASDIRECTD U-100 Insulin) ondansetron HCl 4 mg tablet 4 mg PO Q6H PRN nausea and vomiting 04/10/25 06/19/25 History sennosides 8.6 mg-docusate sodium 1 tab-cap PO HS 04/10/25 06/19/25 History 50 mg capsule (Senna Plus) tramadol 50 mg tablet 50 mg PO TID #10 tabs 04/14/25 06/19/25 Rx acetaminophen 325 mg capsule 650 mg PO TID 06/19/25 06/19/25 History bisacodyl 10 mg rectal suppository 10 mg RECTAL DAILY PRN constipation 06/19/25 06/19/25 History furosemide 20 mg tablet (Lasix) 60 mg PO DAILY 06/19/25 06/19/25 History magnesium citrate 296 ml PO DAILY PRN constipation 06/19/25 06/19/25 History magnesium hydroxide 400 mg/5 mL 30 ml PO HS PRN constipation 06/19/25 06/19/25 History oral suspension (Milk of Magnesia) magnesium oxide 400 mg PO DAILY 06/19/25 06/19/25 History melatonin 5 mg capsule 5 mg PO HS 06/19/25 06/19/25 History sodium phosphates 19 gram-7 118 ml RECTAL DAILY PRN 06/19/25 06/19/25 History gram/118 mL enema (Fleet Enema) constipation Allergies Allergy/AdvReac Type Severity Reaction Status Date / Time codeine Allergy Unknown Hives Verified 02/27/24 11:13 doxazosin Allergy Unknown Unknown Verified 02/27/24 11:13 egg Allergy Unknown Nausea Verified 02/27/24 11:13 erythromycin base Allergy Unknown Fever Verified 02/27/24 11:13 Influenza Virus Vaccines Allergy Unknown Unknown Verified 02/27/24 11:13 lisinopril Allergy Unknown Unknown Verified 02/27/24 11:13 metformin Allergy Unknown Unknown Verified 02/27/24 11:13 Penicillins Allergy Unknown Unknown Verified 04/12/25 12:22 strawberry Allergy Unknown Unknown Verified 06/18/25 21:50 Vital Signs Vital Signs - 24 hr 06/19/25 10:00 06/19/25 11:33 06/19/25 11:56 Temperature 98.1 F Pulse Rate 90 86 Respiratory Rate 16 Blood Pressure 101/61 Pulse Oximetry 97 97 Oxygen Delivery Nasal Cannula Oxygen Flow Rate 2 06/19/25 12:00 06/19/25 12:00 06/19/25 15:16 Temperature Pulse Rate 81 Respiratory Rate Blood Pressure Pulse Oximetry 95 Oxygen Delivery Nasal Cannula Nasal Cannula Oxygen Flow Rate 2 2 06/19/25 15:46 06/19/25 16:04 06/19/25 20:00 Temperature 97.8 F 97 F L Pulse Rate 98 92 55 L Respiratory Rate 16 16 Blood Pressure 108/69 108/68 Pulse Oximetry 100 96 Oxygen Delivery Oxygen Flow Rate 06/19/25 20:00 06/19/25 20:00 06/20/25 00:00 Temperature 97.7 F Pulse Rate 88 70 Respiratory Rate 16 Blood Pressure 106/65 Pulse Oximetry 96 96 Oxygen Delivery Nasal Cannula Oxygen Flow Rate 2 06/20/25 00:00 06/20/25 03:17 06/20/25 04:00 Temperature Pulse Rate 106 H 97 Respiratory Rate Blood Pressure Pulse Oximetry 96 Oxygen Delivery Nasal Cannula Oxygen Flow Rate 2 06/20/25 05:22 Temperature 97.7 F Pulse Rate 95 Respiratory Rate 16 Blood Pressure 102/54 L Pulse Oximetry 96 Oxygen Delivery Oxygen Flow Rate Exam Narrative: Exam Narrative: Well developed well-nourished male in no acute distress Skin is warm and dry without rash Head normocephalic atraumatic Eyes normal sclerae and conjunctivae Mouth normal lips and gums, some tooth abnormalities. Mucous membranes are moist. Neck no nodes no thyromegaly no carotid bruits Axillae no nodes Back no CVA tenderness Lungs symmetric and clear to auscultation and percussion Heart regular rate and rhythm without rub or gallop Abdomen bowel sounds positive soft nontender, no HSM, masses, or bruits. Extremities no cyanosis, clubbing, but 1+ bilateral edema Pulses 2+ equal in radial arteries Psychological not anxious or depressed Neuro alert and oriented x3 motor 5/5 cranial nerves 2-12 intact reflexes 2+ and equal in the biceps and patellar tendons cerebellar normal rapid alternating movements Results Lab Results 06/20/25 05:15 06/20/25 05:15 Lab results: Most recent lab results Calcium 8.8 mg/dL (8.4-10.2) 06/20/25 05:15 Phosphorus 3.1 mg/dL (2.5-4.5) 06/19/25 04:38 Magnesium 1.9 mg/dL (1.6-2.3) 06/19/25 04:38
[2025-06-20 09:34] LABS: Creatine Kinase 24 U/L (55-170)
[2025-06-20 10:05] LABS: Thyroid Stimulating Hormone Reflex 1.710 uIU/mL (0.465-4.68)
--- NOTE | 2025-06-20 10:36 | PM.IMPN ---
Progress Note: A&P Assessment and Plan (1) CHF (congestive heart failure): Code(s): I50.9 - Heart failure, unspecified Status: Acute Plan anasarca Acute on chronic combined heart failure Last Echo 04/12/25 Ef 35-40% will start Lasix daily weight I/O fluid restriction MARY on CKD renally adjust med will monitor while on LAsix renal US R sided atrophy and hydronephrosis Nephrology team on board malnutrition consult dietitian hypotension on admission received IV Albumin hold off Bp meds continue to monitor UTI on Rocephin will follow urine culture results leucocytosis worsening UTI vs aspiration IV Abx NPO. plan for swallow evaluation tomorrow pancytopenia Iron deficiency B12 and folic acid WNL debilitation PT/OT Cad S/P CABG Hold off Plavix with anemia and low PLT continue ASA mild hyponatremia monitor hypothyroidism Levothyroxin Subjective Date/time seen: 06/20/25 10:36 Interval history: per HPI: 85-year-old male, chronically ill with PMH insulin-dependent diabetes mellitus, neurocognitive disorder, CKD, hypothyroidism, hypertension, BPH, history of rectal cancer, hyperlipidemia, heart failure, chronic hypoxic respiratory failure. Patient is brought in by his family noted to be more swollen than usual. Serum creatinine 1.9, higher than his baseline of about 1.3. Lactic acid 2.4. Hemoglobin 9.0 platelet 102, sodium 133 BNP greater than 30,000. Urinalysis abnormal. Chest x-ray with patchy bilateral airspace opacities, bilateral effusions. He was given 500 cc normal saline bolus and albumin infusion. 06/19/25 Patient was seen and examined at bedside. He is feeling fine. he does not know why he is in the hospital. On exam has anasarca. will start IV Lasix. ordered juan pablo hose. continue to monitor. CHIP TUNER/PT/OT pending 06/20/25 Patient was seen and examined at bedside. he is feeling fine denies any chest pain, SOB,abd pain, N/V. continue Lasix will change to 20 mg BID. continue tedhose. Wbc worsening 11.3 . will continue to monitor. Reviewd renal US , showed r sided atrophy. Kidney function stable. nephrology team on board. Review of Systems Review of Systems: All systems reviewed & are unremarkable except as noted in HPI and below (Subjective-HPI) Exam Const: General: comfortable and no acute distress Other: A&O x1 HENMT: Mouth: Yes moist mucous membranes Eyes: Pupils: Equal, round and reactive pupils present Neck: Neck: supple Resp: Effort & Inspection: normal respiratory effort Other: Mild diffuse crackles while laying supine Cardio: Rate: regular rate Rhythm: regular rhythm Heart sounds: no gallops, no murmurs and no rubs GI: Inspection: non-distended : General: Yes bladder normal to palpation Neuro: Cranial nerves: Yes Equal, round and reactive pupils present Extrem: General: edema Objective Data Vital Signs Vital Signs: Vital Signs - 24 hr 06/19/25 11:33 06/19/25 11:56 06/19/25 12:00 Temperature 98.1 F Pulse Rate 86 81 Respiratory Rate 16 Blood Pressure 101/61 Pulse Oximetry 97 97 Oxygen Delivery Nasal Cannula Oxygen Flow Rate 2 06/19/25 12:00 06/19/25 15:16 06/19/25 15:46 Temperature 97.8 F Pulse Rate 98 Respiratory Rate 16 Blood Pressure 108/69 Pulse Oximetry 95 100 Oxygen Delivery Nasal Cannula Nasal Cannula Oxygen Flow Rate 2 2 06/19/25 16:04 06/19/25 20:00 06/19/25 20:00 Temperature 97 F L Pulse Rate 92 55 L Respiratory Rate 16 Blood Pressure 108/68 Pulse Oximetry 96 96 Oxygen Delivery Nasal Cannula Oxygen Flow Rate 2 06/19/25 20:00 06/20/25 00:00 06/20/25 00:00 Temperature 97.7 F Pulse Rate 88 70 106 H Respiratory Rate 16 Blood Pressure 106/65 Pulse Oximetry 96 Oxygen Delivery Oxygen Flow Rate 06/20/25 03:17 06/20/25 04:00 06/20/25 05:22 Temperature 97.7 F Pulse Rate 97 95 Respiratory Rate 16 Blood Pressure 102/54 L Pulse Oximetry 96 96 Oxygen Delivery Nasal Cannula Oxygen Flow Rate 2 06/20/25 09:14 Temperature Pulse Rate Respiratory Rate Blood Pressure Pulse Oximetry 97 Oxygen Delivery Nasal Cannula Oxygen Flow Rate 3 Intake/Output Intake/Output: Intake & Output 06/17/25 06/18/25 06/19/25 06/20/25 23:59 23:59 23:59 23:59 Intake Total 1200 100 0 Output Total 225 600 Balance 1200 -125 -600 Meds/Results Medications: Active Medications Generic Name Dose Route Start Last Admin Trade Name Freq PRN Reason Stop Dose Admin Aspirin 81 mg 06/19/25 09:00 06/19/25 08:53 Aspirin 81 Mg Enteric Tablet PO Not Given DAILY [facility] Atorvastatin Calcium 80 mg 06/19/25 21:00 Atorvastatin 40 Mg Tablet PO HS GIOVANY Bisacodyl 10 mg 06/19/25 01:52 Bisacodyl 10 Mg Suppository RECTAL DAILY PRN constipation Clopidogrel Bisulfate 75 mg 06/19/25 09:00 06/19/25 08:53 Clopidogrel Bisulfate 75 Mg Tablet PO Not Given DAILY [facility] Cyanocobalamin 1,000 mcg 06/19/25 09:00 06/19/25 08:53 Cyanocobalamin 1,000 Mcg Tablet PO Not Given DAILY [facility] Dextrose 12.5 gm 06/18/25 23:36 Dextrose 50% 25 Gm/50 Ml Syringe IV PUSH PRN PRN Hypoglycemia Protocol Ferrous Sulfate 325 mg 06/19/25 09:00 06/19/25 08:53 Ferrous Sulfate [address] PO Not Given DAILY [facility] Finasteride 5 mg 06/19/25 09:00 06/19/25 08:53 Finasteride 5 Mg Tablet PO Not Given QAM [facility] Fluoxetine HCl 10 mg 06/19/25 09:00 06/19/25 08:53 Fluoxetine Hcl 10 Mg Capsule PO Not Given DAILY [facility] Furosemide 20 mg 06/20/25 17:00 Furosemide Inj 40 Mg/4 Ml Vial IV PUSH BID [facility] Gabapentin 600 mg 06/19/25 09:00 06/19/25 14:59 Gabapentin 300 Mg Capsule PO Not Given BID [facility] Glucose 15 gm 06/18/25 23:36 Glucose Oral Gel 15 Gm Of Glucse In 37.5 Gm Tube PO PRN PRN Hypoglycemia Protocol Dextrose 1,000 mls @ 100 mls/hr 06/18/25 23:36 Dextrose 5% 1,000 Ml IVPB PRN PRN Hypoglycemia Protocol Ceftriaxone Sodium 1 gm/ 50 mls @ 100 mls/hr 06/19/25 21:00 06/19/25 21:50 Sodium Chloride IVPB Infused Q24H [facility] Infusion Insulin Aspart 2 - 5 units 06/19/25 18:00 06/20/25 07:03 Insulin Aspart (*Bkc) 100 Units/Ml SUB-Q Not Given Q6HR [facility] Protocol Levothyroxine Sodium 75 mcg 06/19/25 06:30 06/19/25 06:08 Levothyroxine Sodium 75 Mcg Tablet PO 75 mcg DAILY@0630 GIOVANY Administration Levothyroxine Sodium 37.5 mcg 06/20/25 06:30 06/20/25 05:44 Levothyroxine Sodium Inj 100 Mcg/5 Ml Vial IV PUSH 37.5 mcg DAILY@0630 GIOVANY Administration Tamsulosin HCl 0.4 mg 06/19/25 09:00 06/19/25 08:35 Tamsulosin Hcl 0.4 Mg Capsule PO 0.4 mg DAILY GIOVANY Administration Radiology Results: ITS Impressions Chest X-Ray 06/18/25 19:11 IMPRESSION: Patchy bilateral airspace disease may represent edema or infection. Moderate right and small left pleural effusions Renal Ultrasound 06/19/25 14:00 Impression: 1: Bilateral hydronephrosis, left greater than right. 2: Right renal atrophy. Labs Labs: Laboratory Results - last 24 hr 06/19/25 06/19/25 06/19/25 04:25 11:33 13:31 WBC RBC Hgb Hct MCV MCH MCHC RDW Plt Count MPV ESR Sodium Potassium Chloride Carbon Dioxide Anion Gap BUN Creatinine Estim Creat Clear Calc Estimated GFR Glucose POC Capillary Glucose 139 H Calcium Iron 20 L TIBC 193 L % Saturation 10 L Total Creatine Kinase Vitamin B12 999.0 H Folate 5.0 TSH (Reflex) 06/19/25 06/20/25 06/20/25 17:59 00:04 05:15 WBC 11.3 H RBC 3.10 L Hgb 9.3 L Hct 30.1 L MCV 97.1 D MCH 30.0 MCHC 30.9 L RDW 16.0 H Plt Count 100 L MPV 12.2 H ESR Sodium 135 L Potassium 4.8 Chloride 103 Carbon Dioxide 20 L Anion Gap 12 BUN 34 H Creatinine 1.82 H Estim Creat Clear Calc 26 Estimated GFR 35 L Glucose 129 H POC Capillary Glucose 127 H 106 H Calcium 8.8 Iron TIBC % Saturation Total Creatine Kinase Vitamin B12 Folate TSH (Reflex) 06/20/25 06/20/25 06/20/25 05:44 08:21 09:05 WBC RBC Hgb Hct MCV MCH MCHC RDW Plt Count MPV ESR 19 Sodium Potassium Chloride Carbon Dioxide Anion Gap BUN Creatinine Estim Creat Clear Calc Estimated GFR Glucose POC Capillary Glucose 129 H 131 H Calcium Iron TIBC % Saturation Total Creatine Kinase 24 L Vitamin B12 Folate TSH (Reflex) 1.710
[2025-06-20 12:16] LABS: Total Protein Urine Random 24 mg/dL; Ur Ttl Prot Creatinine Ratio 0.35 mg/mg (0-0.20)
[2025-06-20 12:17] LABS: Urine Eos QC 2nd Tech Confirmed
[2025-06-20 12:20] LABS: Urea Random Urine 406 MG/DL
--- NOTE | 2025-06-20 16:03 | PDCODEBLUE ---
Lima Amin Note Code Blue Note Time Arrived at Code Blue: 15:48 Initial Rhythm on Arrival: PEA Airway Management: No airway on arrival Chest Compressions: In process on arrival to bedside Result of Code Blue: Pt Cardiac Rhythm Post Code: PEA Code Rodger Summary: Rapid response initially called around 3:45 p.m. Per bedside RN, patient had been tachycardic for majority of the afternoon. She noted that the patient had become bradycardic on telemetry and upon her evaluation the patient was unresponsive with a pulse which prompted the rapid response. Arrived at 3:48 p.m. and CPR was being initiated by nursing staff as the patient had become pulseless. Lima amin called at 3:48 p.m. Reviewed code status: DNI only per the patient's electronic chart. Patient given 1 mg of Epinephrine IV. Initial pulse check showed patient remained in PEA. Bedside RN contacted family to verify code status. Family elected to make patient DNR/DNI at 3:54 p.m. Compressions were ceased and patient's pulse was dopplered. Dopplerable pulse audible, however radial pulses remained not palpable and the patient had agonal respirations. Normal sinus rhythm on the monitor. Glucose checked and patient found to be hypoglycemic in the 40s. Awaiting D50 from the crash cart when patient became bradycardic. Patient's pulses were again dopplered, no audible pulse heard over multiple sites. PEA on the monitor. Time of called at 3:59 p.m.
--- NOTE | 2025-06-21 16:56 | P.DN_ITS ---
Discharge Summary Date and Time Date of : 06/20/25 Time of : 15:59 Provider Pronounced By: Provider Name of Provider That Pronounced: Dr. Florez Probable Cause of Probable Cause of : bradycardia, acute on chronic CHF Summary Hospital Course: per HPI: 85-year-old male, chronically ill with PMH insulin-dependent diabetes mellitus, neurocognitive disorder, CKD, hypothyroidism, hypertension, BPH, history of rec antonino cancer, hyperlipidemia, heart failure, chronic hypoxic respiratory failure. Patient is brought in by his family noted to be more swollen than usual. Serum creatinine 1.9, higher than his baseline of about 1.3. Lactic acid 2.4. Hemoglobin 9.0 platelet 102, sodium 133 BNP greater than 30,000. Urinalysis abnormal. Chest x-ray with patchy bilateral airspace opacities, bilateral effusions. He was given 500 cc normal saline bolus and albumin infusion. 06/19/25 Patient was seen and examined at bedside. He is feeling fine. he does not know why he is in the hospital. On exam has anasarca. will start IV Lasix. ordered juan pablo hose. continue to monitor. LADLE REPAIRER/PT/OT pending 06/20/25 Rapid response initially called around 3:45 p.m. Per bedside RN, patient had been tachycardic for majority of the afternoon. She noted that the patient had become bradycardic on telemetry and upon her evaluation the patient was unresponsive with a pulse which prompted the rapid response. Arrived at 3:48 p.m. and CPR was being initiated by nursing staff as the patient had become pulseless. Lima amin called at 3:48 p.m. Reviewed code status: DNI only per the patient's electronic chart. Patient given 1 mg of Epinephrine IV. Initial pulse check showed patient remained in PEA. Bedside RN contacted family to verify code status. Family elected to make patient DNR/DNI at 3:54 p.m. Compressions were ceased and patient's pulse was dopplered. Dopplerable pulse audible, however radial pulses remained not palpable and the patient had agonal respirations. Normal sinus rhythm on the monitor. Glucose checked and patient found to be hypoglycemic in the 40s. Awaiting D50 from the crash cart when patient became bradycardic. Patient's pulses were again dopplered, no audible pulse heard over multiple sites. PEA on the monitor. Time of called at 3:59 p.m. Additional Data Confirmation of as documented by pronouncing clinician: Pupillary Reflex, Palpable Pulses, Response to Stimuli, Heart Tones and Breath Sounds Name of Provider Notified: Dr. Florez Time Provider Notified: 15:59 Provider Requests Autopsy: No Family Requests Autopsy: No [employer] Notified: Yes Date [facility] Notified of : 06/20/25 Time [facility] Notified of : 16:30
[2025-06-22 14:08] LABS: Immunoglobulin A, Qn 505 mg/dL (61-437); Immunoglobulin G, Qn 1255 mg/dL (603-1613); Immunoglobulin M, Qn 77 mg/dL (15-143)
== END 2025-06-20 15:59 | disposition expired | DRG 291 ==
LOC: ANHED 22:16 → ANHIMU 23:14 → ANH3MED 06-20 18:31 → ANHIMU 06-22 10:43
PROVIDERS: Internal Medicine Nephrology; Admitting Provider General Practice; Emergency Provider Emergency Medicine; PCP Family Medicine; Visit Provider Internal Medicine
DX: I13.0 Hypertensive heart and chronic kidney disease with heart failure and stage 1 through stage 4 chronic kidney disease, or unspecified chronic kidney disease (principal); I50.33 Acute on chronic diastolic (congestive) heart failure; D61.818 Other pancytopenia; E46 Unspecified protein-calorie malnutrition; J96.11 Chronic respiratory failure with hypoxia; N17.9 Acute kidney failure, unspecified; N39.0 Urinary tract infection, site not specified; N13.2 Hydronephrosis with renal and ureteral calculous obstruction; E87.1 Hypo-osmolality and hyponatremia; E11.22 Type 2 diabetes mellitus with diabetic chronic kidney disease; I46.9 Cardiac arrest, cause unspecified; N18.32 Chronic kidney disease, stage 3b; I70.0 Atherosclerosis of aorta; E03.9 Hypothyroidism, unspecified; I25.10 Atherosclerotic heart disease of native coronary artery without angina pectoris; I95.9 Hypotension, unspecified; N40.1 Benign prostatic hyperplasia with lower urinary tract symptoms; I44.7 Left bundle-branch block, unspecified; E78.5 Hyperlipidemia, unspecified; R41.9 Unspecified symptoms and signs involving cognitive functions and awareness; Z87.891 Personal history of nicotine dependence; Z79.4 Long term (current) use of insulin; Z86.73 Personal history of transient ischemic attack (TIA), and cerebral infarction without residual deficits; Z85.048 Personal history of other malignant neoplasm of rectum, rectosigmoid junction, and anus; Z95.2 Presence of prosthetic heart valve; Z95.1 Presence of aortocoronary bypass graft; I25.2 Old myocardial infarction
CPT/HCPCS: 36415; 71045; 76775; 80048; 80053; 81001; 82550; 82570; 82607; 82746; 82784; 82948; 83521; 83540; 83550; 83605; 83735; 83880; 84100; 84156; 84300; 84443; 84540; 85025; 85027; 85055; 85610; 85652; 85730; 85999; 86038; 86334; 86335; 87086; 92610; 92950; 96365; 96366; 96367; 97161; 97166; 99285; A9270; G0378; J0168; J0650; J0696; J1938; J7040; P9047